=== PATIENT | female | born 1975 | race Caucasian/White ===

== ENCOUNTER 2017-11-21 20:38 | Emergency (ER) | payer OTHER ==
[2017-11-21] MEDS ORDERED: ALBUTEROL 2.5 MG/3 ML NEB SOL ONE (21:52)
[2017-11-21] MEDS ORDERED: AZITHROMYCIN 250 MG TAB ONE (21:52)
[2017-11-21] MEDS ORDERED: MAGNE/ALUM HYDROXD 30 ML UCUP ONE (21:52)
[2017-11-21] MEDS ORDERED: LIDOCAINE VISCOUS 2% SOLN 15 ML UDC ONE (21:52)
--- NOTE | 2017-11-21 23:01 | EDPHYS ---
Physician Documentation [facility] Name: Barb Cortez Age: 42 yrs Sex: Female : 1975 Arrival Date: 11/21/2017 Time: 20:41 Bed 16 Private MD: ED Physician Araseli Hutchins HPI: 11/21 22:24 This 42 yrs old Female presents to ER via Wheelchair with complaints of snw Congestion, Sore Throat, Itching Eyes. 22:24 Onset: The symptoms/episode began/occurred suddenly, 3 day(s) ago, and became snw persistent. Associated signs and symptoms: Pertinent positives: shortness of breath, sore throat. The patient has not experienced similar symptoms in the past. 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 - Social history:: Smoking status: Patient uses tobacco products, smokes one-half pack cigarettes per day. ROS: 22:50 Constitutional: Negative for fever, chills, and weight loss, Eyes: Negative for injury, snw pain, redness, and discharge, Neck: Negative for injury, pain, and swelling, Cardiovascular: Negative for chest pain, palpitations, and edema, Respiratory: Negative for cough, wheezing, and pleuritic chest pain, + shortness of breath Abdomen/GI: Negative for abdominal pain, nausea, vomiting, diarrhea, and constipation, Back: Negative for injury and pain, : Negative for injury, bleeding, discharge, and swelling, MS/Extremity: Negative for injury and deformity, Skin: Negative for injury, rash, and discoloration, Neuro: Negative for headache, weakness, numbness, tingling, and seizure, Psych: Negative for depression, anxiety, suicide ideation, homicidal ideation, and hallucinations. 22:50 ENT: Positive for sore throat. Exam: 22:23 Constitutional: This is a well developed, well nourished patient who is awake, alert, snw and in no acute distress. Head/Face: Normocephalic, atraumatic. Eyes: Pupils equal round and reactive to light, extra-ocular motions intact. Lids and lashes normal. Conjunctiva and sclera are non-icteric and not injected. Cornea within normal limits. Periorbital areas with no swelling, redness, or edema. Neck: Trachea midline, no thyromegaly or masses palpated, and no cervical lymphadenopathy. Supple, full range of motion without nuchal rigidity, or vertebral point tenderness. No Meningismus. Chest/axilla: Normal chest wall appearance and motion. Nontender with no deformity. No lesions are appreciated. Cardiovascular: Regular rate and rhythm with a normal S1 and S2. No gallops, murmurs, or rubs. Normal PMI, no JVD. No pulse deficits. Respiratory: Lungs have equal breath sounds bilaterally, clear to auscultation and percussion. No rales, rhonchi or wheezes noted. No increased work of breathing, no retractions or nasal flaring. Abdomen/GI: Soft, non-tender, with normal bowel sounds. No distension or tympany. No guarding or rebound. No evidence of tenderness throughout. Back: No spinal tenderness. No costovertebral tenderness. Full range of motion. Skin: Warm, dry with normal turgor. Normal color with no rashes, no lesions, and no evidence of cellulitis. MS/ Extremity: Pulses equal, no cyanosis. Neurovascular intact. Full, normal range of motion. Neuro: Awake and alert, GCS 15, oriented to person, place, time, and situation. Cranial nerves II-XII grossly intact. Motor strength 5/5 in all extremities. Sensory grossly intact. Cerebellar exam normal. Normal gait. 22:23 ENT: TM's: are normal, Nose: is normal, Mouth: is normal, Posterior pharynx: is normal, Voice: is hoarse. Vital Signs: 20:46 BP 133 / 73; Pulse 100; Resp 19; Temp 98.0(TE); Pulse Ox 98% on R/A; Weight 79.38 kg; la1 Height 4 ft. 9 in. (144.78 cm); 22:00 BP 115 / 74; Pulse 95; Resp 18; Pulse Ox 100% ; ao 23:00 BP 117 / 67; Pulse 80; Resp 14; Pulse Ox 98% ; bp 20:46 Body Mass Index 37.87 (79.38 kg, 144.78 cm) la1 MDM: 20:47 Patient medically screened. snw 23:02 Data reviewed: vital signs, nurses notes. Data interpreted: Pulse oximetry: on room air snw is 100 %. Interpretation: normal. Counseling: I had a detailed discussion with the patient and/or guardian regarding: the historical points, exam findings, and any diagnostic results supporting the discharge/admit diagnosis, radiology results, the need for outpatient follow up, to return to the emergency department if symptoms worsen or persist or if there are any questions or concerns that arise at home. Special discussion: Based on the history and exam findings, there is no indication for further emergent testing or inpatient evaluation. I discussed with the patient/guardian the need to see the primary care provider for further evaluation of the symptoms. Medical screen evaluation completed[facility]. 11/21 21:42 Order name: Chest Pa And Lat (2 Views) XRAY snw Administered Medications: 21:58 Drug: GI Cocktail without - (Maalox Suspension 30 ml, Lidocaine Liquid 2 % 15 ao ml) Route: PO; 23:05 Follow up: Response: Marked relief of symptoms bp 21:59 Drug: Albuterol 2.5 mg Route: Inhalation; ao 21:59 Follow up: Response: No adverse reaction ao 21:59 Drug: Zithromax 500 mg Route: PO; ao 23:05 Follow up: Response: No adverse reaction bp Disposition: 11/22 01:52 Co-signature as Attending Physician, Araseli Hutchins MD. ma2 Disposition: 11/21/17 23:00 Discharged to Home. Impression: Acute pharyngitis, Acute laryngitis. - Condition is Stable. - Discharge Instructions: Pharyngitis, Rehydration, Adult. - Prescriptions for Albuterol Sulfate 2.5 mg /3 mL (0.083 %) Inhalation Solution for Nebulization - inhale 1 unit by NEBULIZATION route every 4-6 hours As needed; 2 box. Zithromax 500 mg Oral Tablet - take 1 tablet by ORAL route once daily for 5 days; 5 tablet. - Medication Reconciliation Form, Thank You Letter, Antibiotic Education, Prescription Opioid Use form. - Follow up: Private Physician; When: 2 - 3 days; Reason: Recheck today's complaints, Continuance of care, Re-evaluation by your physician. Follow up: Emergency Department; When: As needed; Reason: Worsening of condition. Signatures: Dispatcher [employer] EDMS Bee Shah, BOND ANALYST-C BOND ANALYST-Csnw Amrit Guerrero RN RN laGeoff Woodard, RN RN Grover Ortiz RN RN bp Araseli Hutchins MD MD ma2 Corrections: (The following items were deleted from the chart) 11/21 23:03 23:00 11/21/2017 23:00 Discharged to Home. Impression: Acute pharyngitis. Condition is snw Stable. Forms are Medication Reconciliation Form, Thank You Letter, Antibiotic Education, Prescription Opioid Use. Follow up: Private Physician; When: 2 - 3 days; Reason: Recheck today's complaints, Continuance of care, Re-evaluation by your physician. Follow up: Emergency Department; When: As needed; Reason: Worsening of condition. snw 23:12 23:03 11/21/2017 23:00 Discharged to Home. Impression: Acute pharyngitis; Acute bp laryngitis. Condition is Stable. Discharge Instructions: Pharyngitis, Rehydration, Adult. Prescriptions for Albuterol Sulfate 2.5 mg /3 mL (0.083 %) Inhalation Solution for Nebulization - inhale 1 unit by NEBULIZATION route every 4-6 hours As needed; 2 box, Zithromax 500 mg Oral Tablet - take 1 tablet by ORAL route once daily for 5 days; 5 tablet. and Forms are Medication Reconciliation Form, Thank You Letter, Antibiotic Education, Prescription Opioid Use. Follow up: Private Physician; When: 2 - 3 days; Reason: Recheck today's complaints, Continuance of care, Re-evaluation by your physician. Follow up: Emergency Department; When: As needed; Reason: Worsening of condition. snw
--- NOTE | 2017-11-21 23:01 | ER ---
Nurse's Notes [facility] Name: Barb Cortez Age: 42 yrs Sex: Female : 1975 Arrival Date: 11/21/2017 Time: 20:41 Bed 16 Private MD: Diagnosis: Acute pharyngitis;Acute laryngitis Presentation: 11/21 20:45 Presenting complaint: Patient states: Cough, congestion, chest tightness, pain with la1 swallowing for the last 3 days. Transition of care: patient was not received from another setting of care. Onset of symptoms was November 21, 2017. Initial Sepsis Screen: Does the patient meet any 2 criteria? No. Patient's initial sepsis screen is negative. Does the patient have a suspected source of infection? No. Patient's initial sepsis screen is negative. Care prior to arrival: None. 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 - Social history:: Smoking status: Patient uses tobacco products, smokes one-half pack cigarettes per day. Screenin:08 Abuse screen: Denies threats or abuse. Denies injuries from another. Nutritional ao screening: No deficits noted. Tuberculosis screening: No symptoms or risk factors identified. Fall Risk None identified. Assessment: 21:06 General: Appears in no apparent distress. comfortable, Behavior is cooperative. Pain: ao Complains of pain in sore throat. Neuro: Level of Consciousness is awake, alert, obeys commands, Oriented to person, place, time, situation, Weakness. Cardiovascular: Patient's skin is warm and dry. Respiratory: Airway is patent Respiratory effort is even, unlabored, Respiratory pattern is regular, symmetrical, Breath sounds are clear bilaterally. GI: Abdomen is obese. : No signs and/or symptoms were reported regarding the genitourinary system. EENT: No signs and/or symptoms were reported regarding the EENT system. Derm: No signs and/or symptoms reported regarding the dermatologic system. Musculoskeletal: Range of motion: limited in all extremities. 21:59 Reassessment: Patient appears in no apparent distress at this time. Patient and/or ao family updated on plan of care and expected duration. Pain level reassessed. Patient is alert, oriented x 3, equal unlabored respirations, skin warm/dry/pink. 22:00 Reassessment: RECD REPORT FROM MALGORZATA BESS. 42YO WF P/W SORE THROAT AND CONGESTION, bp AFEBRILE ON ARRIVAL. RAD RESULTS PENDING. 23:11 Reassessment: PT D/C HOME VIA PERSONAL W/C WITH FAMILY, DX WITH ACUTE PHARYNGITIS. bp Vital Signs: 20:46 BP 133 / 73; Pulse 100; Resp 19; Temp 98.0(TE); Pulse Ox 98% on R/A; Weight 79.38 kg; la1 Height 4 ft. 9 in. (144.78 cm); 22:00 BP 115 / 74; Pulse 95; Resp 18; Pulse Ox 100% ; ao 23:00 BP 117 / 67; Pulse 80; Resp 14; Pulse Ox 98% ; bp 20:46 Body Mass Index 37.87 (79.38 kg, 144.78 cm) la1 ED Course: 20:41 Patient arrived in ED. ds1 20:41 Bee Shah FNP-C is PHCP. snw 20:41 Araseli Hutchins MD is Attending Physician. snw 20:46 Triage completed. la1 20:46 Arm band placed on left wrist. la1 21:06 Malgorzata Lucas, RN is Primary Nurse. ao 21:09 Patient has correct armband on for positive identification. Pulse ox on. NIBP on. ao 22:47 Chest Pa And Lat (2 Views) XRAY In Process Unspecified. EDMS 23:11 No provider procedures requiring assistance completed. Patient did not have IV access bp during this emergency room visit. Administered Medications: 21:58 Drug: GI Cocktail without - (Maalox Suspension 30 ml, Lidocaine Liquid 2 % 15 ao ml) Route: PO; 23:05 Follow up: Response: Marked relief of symptoms bp 21:59 Drug: Albuterol 2.5 mg Route: Inhalation; ao 21:59 Follow up: Response: No adverse reaction ao 21:59 Drug: Zithromax 500 mg Route: PO; ao 23:05 Follow up: Response: No adverse reaction bp Outcome: 23:00 Discharge ordered by . nazario 23:12 Discharged to home via wheelchair, with family. bp 23:12 Condition: stable 23:12 Discharge instructions given to patient, Instructed on discharge instructions, follow up and referral plans. medication usage, Demonstrated understanding of instructions, follow-up care, medications, Prescriptions given X 2. 23:12 Patient left the ED. bp Signatures: Dispatcher [employer] EDMS Bee Shah, BHAVIN-C PROJECT MANAGEMENT ENGINEER-Jen Guerrero ds1 Amrit Guerrero RN RN la1 Malgorzata Lucas, RN Grover Bravo RN RN bp
[2017-11-21 23:25] VITALS: TEMP 98
[2017-11-21 23:27] VITALS: BP 117/67; O2SAT 98
--- NOTE | 2017-11-22 11:32 | RAD REPORT ---
EXAM DESCRIPTION: RAD - Chest Pa And Lat (2 Views) - 11/21/2017 10:47 pm CLINICAL HISTORY: Cough and congestion. COMPARISON: None. FINDINGS: The lungs are clear. The heart is normal in size. No displaced fractures. IMPRESSION: No acute or concerning finding suspected.
== END 2017-11-21 23:12 | disposition home or self-care (01) ==
LOC: ER 20:38
DX: J04.0 Acute laryngitis (principal); I10 Essential (primary) hypertension; E11.9 Type 2 diabetes mellitus without complications; F32.9 Major depressive disorder, single episode, unspecified; F17.210 Nicotine dependence, cigarettes, uncomplicated; Z79.4 Long term (current) use of insulin; Z88.0 Allergy status to penicillin; Z88.1 Allergy status to other antibiotic agents; Z88.6 Allergy status to analgesic agent; Z91.041 Radiographic dye allergy status
CPT/HCPCS: 71046; 99284

== ENCOUNTER 2018-01-04 21:34 | Emergency (ER) | payer OTHER ==
[2018-01-04] MEDS ORDERED: NA CHLORIDE 0.9% 1,000 ML ONE (22:46)
[2018-01-04 22:57] LABS: Absolute Lymphocytes (CBC) 4.1 K/uL (0.7-4.9); Absolute Monocytes 0.9 K/uL (0.1-1.3); Absolute Neutrophil 9.9 K/uL (1.8-8.0); Basophils % 0.6 % (0-1.3); Hematocrit 41.7 % (36.0-45.0); Lymphocytes % 25.8 % (15.3-44.8); MCH 28.3 pg (27.0-35.0); MCV 83.3 fL (80-100); MPV 7.1 fL (7.6-11.3); Monocytes % 5.7 % (3.3-12.3); RBC Red Blood Cell Count 5.01 M/uL (3.86-4.86)
[2018-01-04 23:12] LABS: Potassium 4.5 mmol/L (3.5-5.1)
--- NOTE | 2018-01-04 23:40 | EDPHYS ---
Physician Documentation [facility] Name: Barb Cortez Age: 42 yrs Sex: Female : 1975 Arrival Date: 01/04/2018 Time: 21:37 Bed 13 Private MD: ED Physician Gil Boswell HPI: 01/04 23:08 This 42 yrs old Female presents to ER via Wheelchair with complaints of rn Weakness, Dizziness. 23:08 Reports chills and generalized weakness for 2 days, no fever, no cough/chest pain/abd rn pain/vomiting/diarrhea. Onset: The symptoms/episode began/occurred yesterday. Severity of symptoms: At their worst the symptoms were mild in the emergency department the symptoms are unchanged. The patient has experienced a previous episode. The patient has not recently seen a physician. Similar symptoms in past when started amitriptyline, had been off of it for 1.5 years, just restarted. . 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 ak1 Historical: - Allergies: 22:00 Aspirin; ak1 22:00 Cipro; ak1 22:00 IVP DYE; ak1 22:00 PENICILLINS; ak1 22:00 Benadryl; ak1 - Home Meds: 22:00 Lantus Sub-Q [Active]; Novolog Sub-Q [Active]; Lipitor 40 mg Oral tab [Active]; Lyrica ak1 Oral [Active]; metformin 1,000 mg Oral tab [Active]; Flexeril 10 mg Oral tab 3 times per day [Active]; symbicort [Active]; amitriptyline 100 mg Oral tab [Active]; Prozac 20 mg Oral cap 1 cap once daily [Active]; prazosin 1 mg Oral cap 1 cap nightly [Active]; - PMHx: 22:00 Depression; Diabetes - IDDM; Hypertension; Bipolar disorder; ak1 - PSHx: 22:00 Right BKA; right kidney removal; ; ak1 - Immunization history:: Adult Immunizations unknown. - Social history:: Smoking status: Patient uses tobacco products, smokes one-half pack cigarettes per day. - Ebola Screening: : No symptoms or risks identified at this time. - Family history:: not pertinent. - Hospitalizations: : No recent hospitalization is reported. ROS: 23:08 Constitutional: Negative for fever, and weight loss, Eyes: Negative for injury, pain, rn redness, and discharge, Neck: Negative for injury, pain, and swelling, Cardiovascular: Negative for chest pain, palpitations, and edema, Respiratory: Negative for shortness of breath, cough, wheezing, and pleuritic chest pain, Abdomen/GI: Negative for abdominal pain, nausea, vomiting, diarrhea, and constipation, MS/Extremity: Negative for injury and deformity, Skin: Negative for injury, rash, and discoloration, Neuro: Negative for headache, numbness, tingling, and seizure. Exam: 23:08 Constitutional: This is a well developed, well nourished patient who is awake, alert, rn and in no acute distress. Head/Face: Normocephalic, atraumatic. Eyes: Pupils equal round and reactive to light, extra-ocular motions intact. Lids and lashes normal. Conjunctiva and sclera are non-icteric and not injected. Cornea within normal limits. Periorbital areas with no swelling, redness, or edema. Neck: Trachea midline, no thyromegaly or masses palpated, and no cervical lymphadenopathy. Supple, full range of motion without nuchal rigidity, or vertebral point tenderness. No Meningismus. Cardiovascular: tachycardic, regular, no murmur Respiratory: Lungs have equal breath sounds bilaterally, clear to auscultation and percussion. No rales, rhonchi or wheezes noted. No increased work of breathing, no retractions or nasal flaring. Abdomen/GI: Soft, non-tender, with normal bowel sounds. No distension or tympany. No guarding or rebound. No evidence of tenderness throughout. Skin: Warm, dry with normal turgor. Normal color with no rashes, no lesions, and no evidence of cellulitis. MS/ Extremity: RLE BKA, no evidence of trauma or rash Neuro: Awake and alert, GCS 15, oriented to person, place, time, and situation. Cranial nerves II-XII grossly intact. Motor strength 5/5 in all extremities. Sensory grossly intact. Vital Signs: 21:56 BP 108 / 63; Pulse 108; Resp 20; Temp 98.1; Pulse Ox 99% on R/A; Weight 84.82 kg (R); ak1 Height 4 ft. 9 in. (144.78 cm) (R); Pain 10/10; 23:33 BP 118 / 67; Pulse 100; Resp 16; Pulse Ox 100% ; Pain 0/10; ao 01/05 00:20 BP 118 / 72; Pulse 97; Resp 16; Pulse Ox 100% ; ao 01/04 21:56 Body Mass Index 40.47 (84.82 kg, 144.78 cm) ak1 NIH Stroke Scale Scores: 01/04 22:11 NIHSS Score: 0 ao MDM: 22:18 Patient medically screened. rn 23:37 Differential Diagnosis flu, dehydration, medication side effect. Data reviewed: vital rn signs, nurses notes, lab test result(s), and as a result, I will discharge patient. Counseling: I had a detailed discussion with the patient and/or guardian regarding: the historical points, exam findings, and any diagnostic results supporting the discharge/admit diagnosis, lab results, the need for outpatient follow up, to return to the emergency department if symptoms worsen or persist or if there are any questions or concerns that arise at home. Response to treatment: the patient's symptoms have markedly improved after treatment, and as a result, I will discharge patient. Special discussion: I discussed with the patient/guardian in detail that at this point there is no indication for admission to the hospital. It is understood, however, that if the symptoms persist or worsen the patient needs to return immediately for re-evaluation. ED course: Pt with neg flu, + dehydration, neg UA, nonspecific symptoms of aches and chills, afebrile, has had this before with starting medication she just started again, possible side effect, will need reeval by pcp.. 01/04 22:26 Order name: CBC with Diff; Complete Time: 23:02 rn 01/04 22: Order name: Basic Metabolic Panel; Complete Time: 23:36 rn 01/04 22:26 Order name: Urine Microscopic Only rn 01/04 22:26 Order name: Flu; Complete Time: 23:36 rn 01/04 23:22 Order name: Urine Dipstick--Ancillary (enter results) eb 01/04 23:22 Order name: Urine --Ancillary (enter results) 01/04 22:26 Order name: IV Start; Complete Time: 22:46 rn 01/04 22: Order name: Urine Test (obtain specimen); Complete Time: 23:23 rn 01/04 22:26 Order name: Urine Dipstick-Ancillary (obtain specimen); Complete Time: 23:23 rn Administered Medications: 22:49 Drug: NS 0.9% 1000 ml Route: IV; Rate: 1000 ml; Site: right antecubital; ao Point of Care Testin:22 None ordered ao Ranges: Critical Glucose Levels:Adult <50 mg/dl or >400 mg/dl <40 mg/dl or >180 mg/dl Disposition: 01/04/18 23:39 Discharged to Home. Impression: Dehydration, Chills (without fever). - Condition is Stable. - Discharge Instructions: Dehydration, Adult. - Medication Reconciliation Form, Thank You Letter, Antibiotic Education, Prescription Opioid Use form. - Follow up: Private Physician; When: As needed; Reason: Recheck today's complaints, Re-evaluation by your physician. - Problem is new. - Symptoms have improved. NIH Stroke Scale - NIH Stroke Score Date: 01/04/2018 Time: 22:11 Total Score = 0 1a. Level of Consciousness (LOC) - 0(Alert) 1b. Level of Consciousness (LOC) (Year \T\ Age) - 0(Both) 1c. LOC Commands (Open \T\ Closes Eyes/Coat Fitter) - 0(Both) 2. Best Gaze (Lateral Gaze Paresis) - 0(Normal) 3. Visual Field Loss - 0(No visual loss) 4. Facial Palsy - 0(Normal) 5a. Left Arm: Motor (10-second hold) - 0(No drift) 5b. Right Arm: Motor (10-second hold) - 0(No drift) 6a. Left Leg: Motor (5-second hold - always test supine) - 0(No drift) 6b. Right Leg: Motor (5-second hold - always test supine) - 9(Amputation, joint fusion) - Notes: Right bellow knee amputation 7. Limb Ataxia (finger/nose \T\ heel/lee - test with eyes open) - 0(Absent) 8. Sensory Loss (pinprick arms/legs/face) - 0(Normal) 9. Best Language: Aphasia (description/naming/reading) - 0(No aphasia) 10. Dysarthria (speech clarity - read or repeat words) - 0(Normal) 11. Extinction and Inattention (visual/tactile/auditory/spatial/personal) - 0(No abnormality) Initials: ao Signatures: Dispatcher [employer] Gil Bradley MD MD rn Krenek, Amber, RN RN ak1 Geoff Lucas RN RN ao Corrections: (The following items were deleted from the chart) 01/05 00:22 01/04 23:39 01/04/2018 23:39 Discharged to Home. Impression: Dehydration; ao Chills (without fever). Condition is Stable. Forms are Medication Reconciliation Form, Thank You Letter, Antibiotic Education, Prescription Opioid Use. Follow up: Private Physician; When: As needed; Reason: Recheck today's complaints, Re-evaluation by your physician. Problem is new. Symptoms have improved. rn
--- NOTE | 2018-01-04 23:40 | ER ---
Nurse's Notes [facility] Name: Barb Cortez Age: 42 yrs Sex: Female : 1975 Arrival Date: 01/04/2018 Time: 21:37 Bed 13 Private MD: Diagnosis: Dehydration;Chills (without fever) Presentation: 01/04 21:57 Presenting complaint: Patient states: body aches since last night. pt c/o fatigue. ak1 Transition of care: patient was not received from another setting of care. Onset of symptoms was January 03, 2018. Risk Assessment: Do you want to hurt yourself or someone else? Patient reports no desire to harm self or others. Initial Sepsis Screen: Does the patient meet any 2 criteria? No. Patient's initial sepsis screen is negative. Does the patient have a suspected source of infection? No. Patient's initial sepsis screen is negative. Care prior to arrival: None. 21:57 Method Of Arrival: Wheelchair ak1 21:57 Acuity: HARI 3 ak1 22:20 No acute neurological deficit is noted. Pre-hospital glucose is not applicable to this ao patient. Triage Assessment: 22:21 The onset of the patients symptoms was January 04, 2018 at 06:00. General: Appears in no ao apparent distress. comfortable. General: Behavior is calm, inappropriate for age. Neuro: Reports weakness in General since This morning. 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 N/A - IUD ak1 Stroke Activation: Physician: Stroke Attending; Name: ; Notified At: ; Arrived At: Physician: Chief Stroke Resident; Name: ; Notified At: ; Arrived At: Physician: Stroke Resident; Name: ; Notified At: ; Arrived At: Physician: ED Attending; Name: ; Notified At: ; Arrived At: Physician: ED Resident; Name: ; Notified At: ; Arrived At: 22:20 Non stroke candidate ao Historical: - Allergies: 22:00 Aspirin; ak1 22:00 Cipro; ak1 22:00 IVP DYE; ak1 22:00 PENICILLINS; ak1 22:00 Benadryl; ak1 - Home Meds: 22:00 Lantus Sub-Q [Active]; Novolog Sub-Q [Active]; Lipitor 40 mg Oral tab [Active]; Lyrica ak1 Oral [Active]; metformin 1,000 mg Oral tab [Active]; Flexeril 10 mg Oral tab 3 times per day [Active]; symbicort [Active]; amitriptyline 100 mg Oral tab [Active]; Prozac 20 mg Oral cap 1 cap once daily [Active]; prazosin 1 mg Oral cap 1 cap nightly [Active]; - PMHx: 22:00 Depression; Diabetes - IDDM; Hypertension; Bipolar disorder; ak1 - PSHx: 22:00 Right BKA; right kidney removal; ; ak1 - Immunization history:: Adult Immunizations unknown. - Social history:: Smoking status: Patient uses tobacco products, smokes one-half pack cigarettes per day. - Ebola Screening: : No symptoms or risks identified at this time. - Family history:: not pertinent. - Hospitalizations: : No recent hospitalization is reported. Screenin:20 Abuse screen: Denies threats or abuse. Denies injuries from another. Nutritional ao screening: No deficits noted. Tuberculosis screening: No symptoms or risk factors identified. Fall Risk Ambulatory Aid- Furniture (30 pts.). Assessment: 22:11 The patient has not been NPO before screening. The patient is alert, and able to follow ao commands. The patient does not exhibit slurred or garbled speech. The patient is not exhibiting difficulty speaking. The patient does not exhibit difficulty understanding words. The patient is able to swallow own secretions with no drooling or need for suction. Patient tolerated one teaspoon of water. No drooling, immediate coughing, gurgling, or clearing of the throat was noted. The patient tolerated 90mL of water. No drooling, immediate coughing, gurgling, or clearing of the throat was noted. The patient passed the bedside swallow screening. Oral medications may be given as ordered. Contact Physician for further diet orders. T-PA (Activase) Screening: Contraindications: Other: Patient is non stroke candidate. 22:16 Provider notified of bedside swallow screening results: Geoff Lucas RN. General: Appears ao in no apparent distress. General: Appears comfortable, Behavior is calm, cooperative, appropriate for age. Pain: Complains of pain in Body aches Pain does not radiate. Neuro: Level of Consciousness is awake, alert, obeys commands, Oriented to person, place, time, situation, Appropriate for age Moves all extremities. Full function Unable to test right leg. Amputated right leg. Speech is normal, Facial symmetry appears normal, Pupils are PERRLA. Cardiovascular: Heart tones S1 S2 Capillary refill < 3 seconds Patient's skin is warm and dry. Respiratory: Airway is patent Respiratory effort is even, unlabored, Respiratory pattern is regular, symmetrical, Breath sounds are clear bilaterally. GI: Abdomen is obese, Bowel sounds hypoactive in right upper quadrant, left upper quadrant, right lower quadrant and left lower quadrant. : No signs and/or symptoms were reported regarding the genitourinary system. EENT: No signs and/or symptoms were reported regarding the EENT system. Derm: Skin is intact, has skin tears on noted in the hands and arms. Musculoskeletal: Amputation of Below knee right leg. 23:33 Reassessment: Patient appears in no apparent distress at this time. Patient and/or ao family updated on plan of care and expected duration. Pain level reassessed. Patient is alert, oriented x 3, equal unlabored respirations, skin warm/dry/pink. Patient has no questions at this time. 01/05 00:20 Reassessment: DC instructions given to patient. Patient agree with the POC and to ao follow up with PCP. Patient has no questions. Vital Signs: 01/04 21:56 BP 108 / 63; Pulse 108; Resp 20; Temp 98.1; Pulse Ox 99% on R/A; Weight 84.82 kg (R); ak1 Height 4 ft. 9 in. (144.78 cm) (R); Pain 10/10; 23:33 BP 118 / 67; Pulse 100; Resp 16; Pulse Ox 100% ; Pain 0/10; ao 01/05 00:20 BP 118 / 72; Pulse 97; Resp 16; Pulse Ox 100% ; ao 01/04 21:56 Body Mass Index 40.47 (84.82 kg, 144.78 cm) ak1 NIH Stroke Scale Scores: 01/04 22:11 NIHSS Score: 0 ao ED Course: 21:37 Patient arrived in ED. al2 21:56 Arm band placed on Patient placed in an exam room, in a wheelchair, Patient notified of ak1 wait time. 21:57 Triage completed. ak1 22:08 Geoff Lucas RN is Primary Nurse. ao 22:18 Gil Boswell MD is Attending Physician. rn 22:21 Patient has correct armband on for positive identification. Pulse ox on. NIBP on. ao 22:49 Inserted saline lock: 22 gauge in right antecubital area, using aseptic technique. ao ,using aseptic technique. By MARIA ALEJANDRA Morales Blood collected. 01/05 00:19 No provider procedures requiring assistance completed. IV discontinued, intact, ao bleeding controlled, No redness/swelling at site. Pressure dressing applied. Administered Medications: 01/04 22:49 Drug: NS 0.9% 1000 ml Route: IV; Rate: 1000 ml; Site: right antecubital; ao Point of Care Testin:22 None ordered ao Ranges: Outcome: 23:39 Discharge ordered by . rn 01/05 00:20 Discharged to home ambulatory. ao Condition: stable Discharge instructions given to patient, Instructed on discharge instructions, follow up and referral plans. Demonstrated understanding of instructions, follow-up care. 00:22 Patient left the ED. ao NIH Stroke Scale - NIH Stroke Score Date: 01/04/2018 Time: 22:11 Total Score = 0 1a. Level of Consciousness (LOC) - 0(Alert) 1b. Level of Consciousness (LOC) (Year \T\ Age) - 0(Both) 1c. LOC Commands (Open \T\ Closes Eyes/Welder Experimental) - 0(Both) 2. Best Gaze (Lateral Gaze Paresis) - 0(Normal) 3. Visual Field Loss - 0(No visual loss) 4. Facial Palsy - 0(Normal) 5a. Left Arm: Motor (10-second hold) - 0(No drift) 5b. Right Arm: Motor (10-second hold) - 0(No drift) 6a. Left Leg: Motor (5-second hold - always test supine) - 0(No drift) 6b. Right Leg: Motor (5-second hold - always test supine) - 9(Amputation, joint fusion) - Notes: Right bellow knee amputation 7. Limb Ataxia (finger/nose \T\ heel/lee - test with eyes open) - 0(Absent) 8. Sensory Loss (pinprick arms/legs/face) - 0(Normal) 9. Best Language: Aphasia (description/naming/reading) - 0(No aphasia) 10. Dysarthria (speech clarity - read or repeat words) - 0(Normal) 11. Extinction and Inattention (visual/tactile/auditory/spatial/personal) - 0(No abnormality) Initials: ao Signatures: Gil Boswell MD MD rn Krenek, Amber RN RN Geoff Galeana, RN Kirsty Ware
[2018-01-04 23:50] LABS: Urine Blood NEGATIVE (NEG); Urine Glucose NEGATIVE (NEG); Urine Protein 1+ (NEG); Urine pH 5.5 (5.0-7.0)
[2018-01-05 00:27] VITALS: TEMP 98.1
[2018-01-05 00:28] VITALS: O2SAT 100
[2018-01-05 00:29] VITALS: BP 118/72
[2018-01-05 00:36] LABS: Urine Bacteria 20-50 /HPF (<20); Urine Culture Reflex Order REFLEXED; Urine RBC <5 /HPF (NONE SEEN)
== END 2018-01-05 00:22 | disposition home or self-care (01) ==
LOC: ER 21:34
DX: E86.0 Dehydration (principal); R50.9 Fever, unspecified; E11.9 Type 2 diabetes mellitus without complications; I10 Essential (primary) hypertension; F17.210 Nicotine dependence, cigarettes, uncomplicated; Z88.0 Allergy status to penicillin; Z88.6 Allergy status to analgesic agent; Z91.041 Radiographic dye allergy status; Z79.4 Long term (current) use of insulin
CPT/HCPCS: 36415; 80048; 81003; 81015; 81025; 85025; 87086; 87088; 87804; 99284; J7030

== ENCOUNTER 2018-01-14 23:18 | Emergency (ER) | payer OTHER ==
[2018-01-15] MEDS ORDERED: HYDROCODONE/APAP 10/325 TAB ONE (00:10)
--- NOTE | 2018-01-15 01:07 | ER ---
Nurse's Notes [facility] Name: Barb Cortez Age: 42 yrs Sex: Female : 1975 Arrival Date: 01/14/2018 Time: 23:19 Bed 6 Private MD: Diagnosis: Sprain of ankle-left Presentation: 01/14 23:28 Presenting complaint: Patient states: Pt was transferring to bedside commode and states tl2 that her left leg felt tingly and caused her to fall in between bed and chair. Pt reports pain to left ankle, back and neck. Denies LOC. Pt has full ROM of left leg. Denies dizziness. Transition of care: patient was not received from another setting of care. Onset of symptoms was January 14, 2018 at 23:00. Risk Assessment: Do you want to hurt yourself or someone else? Patient reports no desire to harm self or others. Initial Sepsis Screen: Does the patient meet any 2 criteria? No. Patient's initial sepsis screen is negative. Does the patient have a suspected source of infection? No. Patient's initial sepsis screen is negative. Care prior to arrival: None. 23:28 Method Of Arrival: Wheelchair tl2 23:28 Acuity: HARI 3 tl2 Triage Assessment: 23:31 General: Appears in no apparent distress. uncomfortable, Behavior is cooperative, tl2 appropriate for age, anxious. Pain: Complains of pain in left lateral ankle, neck, back. Neuro: Level of Consciousness is awake, alert, obeys commands, Oriented to person, place, time, situation, Heel Lining Paster are equal bilaterally Speech is normal, Facial symmetry appears normal, Tingling in left leg. 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 tl2 Historical: - Allergies: 23:31 Aspirin; tl2 23:31 Benadryl; tl2 23:31 Cipro; tl2 23:31 IVP DYE; tl2 23:31 PENICILLINS; tl2 - Home Meds: 23:31 amitriptyline 100 mg Oral tab [Active]; Flexeril 10 mg Oral tab 3 times per day tl2 [Active]; Lantus Sub-Q [Active]; Lipitor 40 mg Oral tab [Active]; Lyrica Oral [Active]; metformin 1,000 mg Oral tab [Active]; Novolog Sub-Q [Active]; prazosin 1 mg Oral cap 1 cap nightly [Active]; Prozac 20 mg Oral cap 1 cap once daily [Active]; symbicort [Active]; - PMHx: 23:31 Bipolar disorder; Depression; Diabetes - IDDM; Hypertension; Hyperlipidemia; tl2 - PSHx: 23:31 ; right kidney removed; Right BKA; tl2 - Immunization history:: Adult Immunizations up to date, Last tetanus immunization: up to date. - Social history:: Smoking status: Patient uses tobacco products, smokes one-half pack cigarettes per day. - Ebola Screening: : No symptoms or risks identified at this time. Screenin:34 Abuse screen: Denies threats or abuse. Nutritional screening: No deficits noted. tl2 Tuberculosis screening: No symptoms or risk factors identified. Fall Risk Fall in past 12 months (25 points). Gait- Impaired (20 pts.). Assessment: 23:34 General: Appears in no apparent distress. comfortable, Behavior is calm, cooperative. rv Pain: Complains of pain in knee, back, arm. Neuro: Level of Consciousness is awake, alert, obeys commands, Oriented to person, place, time, situation. Cardiovascular: Capillary refill < 3 seconds. Respiratory: Airway is patent. GI: No signs and/or symptoms were reported involving the gastrointestinal system. : No signs and/or symptoms were reported regarding the genitourinary system. EENT: No signs and/or symptoms were reported regarding the EENT system. Derm: Skin is intact. Musculoskeletal: No signs and/or symptoms reported regarding the musculoskeletal system. 01/15 00:56 Reassessment: Patient appears in no apparent distress at this time. Patient is alert, rv oriented x 3, equal unlabored respirations, skin warm/dry/pink. awaiting xray results. Vital Signs: 01/14 23:31 BP 125 / 70; Pulse 102; Resp 20; Temp 98.1(O); Pulse Ox 99% on R/A; Weight 83.91 kg; tl2 Height 4 ft. 9 in. (144.78 cm); Pain 10/10; 01/15 00:39 BP 124 / 70; Pulse 99; Resp 16; Pulse Ox 98% on R/A; rv 01/14 23:31 Body Mass Index 40.03 (83.91 kg, 144.78 cm) tl2 ED Course: 01/14 23:19 Patient arrived in ED. ds1 23:30 Triage completed. tl2 23:31 Arm band placed on right wrist. tl2 23:34 Georges Mendoza NP is PHCP. pm1 23:34 Lamberto Knox MD is Attending Physician. pm1 23:34 Patient has correct armband on for positive identification. Bed in low position. Call tl2 light in reach. Side rails up X 1. 07 00:13 Grover Tang, RN is Primary Nurse. bp 00:28 X-ray completed. Portable x-ray completed in exam room. Patient tolerated procedure kw well. 00:29 Ankle Left 3 View XRAY In Process Unspecified. EDMS 01:35 No provider procedures requiring assistance completed. Patient did not have IV access rv during this emergency room visit. Administered Medications: 00:08 Drug: HYDROcodone-acetaminophen 10 mg-325 mg 1 tabs Route: PO; rv Outcome: 01:06 Discharge ordered by MD. pm1 01:35 Discharged to home via wheelchair. rv 01:35 Condition: stable 01:35 Discharge instructions given to patient, family, Instructed on discharge instructions, follow up and referral plans. 01:36 Patient left the ED. rv Signatures: Dispatcher [employer] EDNJ Jen Jacome ds1 Brigitte Gong Georges Mendoza NP SLATE ROOFER HELPER pm1 Latonya Isbell RN RN tl2 Grover Tang, RN RN bp Scotty Pena RN RN rv
--- NOTE | 2018-01-15 01:07 | EDPHYS ---
Physician Documentation [facility] Name: Barb Cortez Age: 42 yrs Sex: Female : 1975 Arrival Date: 01/14/2018 Time: 23:19 Bed 6 Private MD: ED Physician Lamberto Knox HPI: 01/15 01:00 This 42 yrs old Female presents to ER via Wheelchair with complaints of Fall pm1 Injury. 01:00 Details of fall: The patient fell from seated position, while transferring. Onset: The pm1 symptoms/episode began/occurred 5 hour(s) ago. Associated injuries: The patient sustained left ankle. Severity of symptoms: in the emergency department the symptoms are actually worse. Patient with right BKA. patient transferring from bed to bedside commode and fell on her right leg and back. patient rolled her left ankle which is hurting the most. Patient's back pain no different or increased from her chronic back pain. Patient with minimal pain to right knee. No head injury, headache, or neck pain. 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 LMP 2009 tl2 Historical: - Allergies: 23:31 Aspirin; tl2 23:31 Benadryl; tl2 23:31 Cipro; tl2 23:31 IVP DYE; tl2 23:31 PENICILLINS; tl2 - Home Meds: 23:31 amitriptyline 100 mg Oral tab [Active]; Flexeril 10 mg Oral tab 3 times per day tl2 [Active]; Lantus Sub-Q [Active]; Lipitor 40 mg Oral tab [Active]; Lyrica Oral [Active]; metformin 1,000 mg Oral tab [Active]; Novolog Sub-Q [Active]; prazosin 1 mg Oral cap 1 cap nightly [Active]; Prozac 20 mg Oral cap 1 cap once daily [Active]; symbicort [Active]; - PMHx: 23:31 Bipolar disorder; Depression; Diabetes - IDDM; Hypertension; Hyperlipidemia; tl2 - PSHx: 23:31 ; right kidney removed; Right BKA; tl2 - Immunization history:: Adult Immunizations up to date, Last tetanus immunization: up to date. - Social history:: Smoking status: Patient uses tobacco products, smokes one-half pack cigarettes per day. - Ebola Screening: : No symptoms or risks identified at this time. ROS: 01/15 01:00 Constitutional: Negative for fever, chills, and weight loss, Eyes: Negative for injury, pm1 pain, redness, and discharge, ENT: Negative for injury, pain, and discharge, Neck: Negative for injury, pain, and swelling, Cardiovascular: Negative for chest pain, palpitations, and edema, Respiratory: Negative for shortness of breath, cough, wheezing, and pleuritic chest pain, Abdomen/GI: Negative for abdominal pain, nausea, vomiting, diarrhea, and constipation, Back: Negative for injury and pain, : Negative for injury, bleeding, discharge, and swelling. Skin: Negative for injury, rash, and discoloration, Neuro: Negative for headache, weakness, numbness, tingling, and seizure. MS/extremity: Positive for pain, of the left lateral ankle, Negative for decreased range of motion, deformity. Exam: 01:00 Constitutional: This is a well developed, well nourished patient who is awake, alert, pm1 and in no acute distress. Head/Face: Normocephalic, atraumatic. Eyes: Pupils equal round and reactive to light, extra-ocular motions intact. Lids and lashes normal. Conjunctiva and sclera are non-icteric and not injected. Cornea within normal limits. Periorbital areas with no swelling, redness, or edema. ENT: Nares patent. No nasal discharge, no septal abnormalities noted. Tympanic membranes are normal and external auditory canals are clear. Oropharynx with no redness, swelling, or masses, exudates, or evidence of obstruction, uvula midline. Mucous membranes moist. Neck: Trachea midline, no thyromegaly or masses palpated, and no cervical lymphadenopathy. Supple, full range of motion without nuchal rigidity, or vertebral point tenderness. No Meningismus. Chest/axilla: Normal chest wall appearance and motion. Nontender with no deformity. No lesions are appreciated. Cardiovascular: Regular rate and rhythm with a normal S1 and S2. No gallops, murmurs, or rubs. No pulse deficits. Respiratory: Lungs have equal breath sounds bilaterally, clear to auscultation and percussion. No rales, rhonchi or wheezes noted. No increased work of breathing, no retractions or nasal flaring. Abdomen/GI: Soft, non-tender, with normal bowel sounds. No distension or tympany. No guarding or rebound. No evidence of tenderness throughout. Back: No spinal tenderness. No costovertebral tenderness. Full range of motion. Skin: Warm, dry with normal turgor. Normal color with no rashes, no lesions, and no evidence of cellulitis. 01:00 Musculoskeletal/extremity: Extremities: grossly normal except: noted in the left lateral ankle: tenderness, There is no evidence of decreased ROM, deformity, Right BKA. No swelling or tenderness present to right knee. 01:00 Neuro: Orientation: is normal, Motor: moves all fours. Vital Signs: 01/14 23:31 BP 125 / 70; Pulse 102; Resp 20; Temp 98.1(O); Pulse Ox 99% on R/A; Weight 83.91 kg; tl2 Height 4 ft. 9 in. (144.78 cm); Pain 10/10; 01/15 00:39 BP 124 / 70; Pulse 99; Resp 16; Pulse Ox 98% on R/A; rv 01/14 23:31 Body Mass Index 40.03 (83.91 kg, 144.78 cm) tl2 MDM: 01/14 23:57 Patient medically screened. pm1 01/15 01:05 Data reviewed: vital signs. Data interpreted: Pulse oximetry: on room air is 98 %. pm1 Interpretation: normal. Counseling: I had a detailed discussion with the patient and/or guardian regarding: the historical points, exam findings, and any diagnostic results supporting the discharge/admit diagnosis, radiology results, the need for outpatient follow up, to return to the emergency department if symptoms worsen or persist or if there are any questions or concerns that arise at home. 01/15 00:04 Order name: Ankle Left 3 View XRAY; Complete Time: 15:03 pm1 Administered Medications: 00:08 Drug: HYDROcodone-acetaminophen 10 mg-325 mg 1 tabs Route: PO; rv Disposition: 02:48 Co-signature as Attending Physician, Lamberto Knox MD. pkl Disposition: 01/15/18 01:06 Discharged to Home. Impression: Sprain of ankle - left. - Condition is Stable. - Discharge Instructions: Ankle Sprain. - Medication Reconciliation Form, Thank You Letter form. - Follow up: Emergency Department; When: As needed; Reason: Worsening of condition. Follow up: Private Physician; When: 2 - 3 days; Reason: Recheck today's complaints, Continuance of care, Re-evaluation by your physician. - Problem is new. - Symptoms have improved. Signatures: Dispatcher [employer] EDLamberto George MD MD pkl Marinas, Patrick, INDUSTRIAL GAS SERVICER SUPERVISOR INDUSTRIAL GAS SERVICER SUPERVISOR pm1 Latonya Isbell, RN RN tl2 Scotty Pena RN RN rv Corrections: (The following items were deleted from the chart) 01:36 01:06 01/15/2018 01:06 Discharged to Home. Impression: Sprain of ankle - left. rv Condition is Stable. Forms are Medication Reconciliation Form, Thank You Letter, Antibiotic Education, Prescription Opioid Use. Follow up: Emergency Department; When: As needed; Reason: Worsening of condition. Follow up: Private Physician; When: 2 - 3 days; Reason: Recheck today's complaints, Continuance of care, Re-evaluation by your physician. Problem is new. Symptoms have improved. pm1
[2018-01-15 01:40] VITALS: TEMP 98.1
[2018-01-15 01:41] VITALS: BP 124/70; O2SAT 98
--- NOTE | 2018-01-15 08:41 | RAD REPORT ---
EXAM DESCRIPTION: RAD - Ankle Left 3 View - 01/15/2018 12:29 am CLINICAL HISTORY: PAIN History of trauma, fall COMPARISON: No comparisons FINDINGS: Mild to moderate soft tissue swelling is seen about the ankle. Small calcaneal spur. No ac mian fracture or dislocation is seen.
== END 2018-01-15 01:36 | disposition home or self-care (01) ==
LOC: ER 23:18
DX: S93.402A Sprain of unspecified ligament of left ankle, initial encounter (principal); I10 Essential (primary) hypertension; E78.5 Hyperlipidemia, unspecified; E11.9 Type 2 diabetes mellitus without complications; F17.210 Nicotine dependence, cigarettes, uncomplicated; X50.1XXA Overexertion from prolonged static or awkward postures, initial encounter; Y93.89 Activity, other specified; Y92.9 Unspecified place or not applicable; Y99.9 Unspecified external cause status; Z79.4 Long term (current) use of insulin; Z88.6 Allergy status to analgesic agent; Z88.1 Allergy status to other antibiotic agents; Z88.0 Allergy status to penicillin; Z88.8 Allergy status to other drugs, medicaments and biological substances
CPT/HCPCS: 99283

== ENCOUNTER 2018-01-22 19:08 | Emergency (ER) | payer OTHER ==
[2018-01-22] MEDS ORDERED: PROMETHAZINE 25 MG TABLET ONE (20:09)
[2018-01-22] MEDS ORDERED: HYDROCODONE/APAP 10/325 TAB ONE (20:09)
--- NOTE | 2018-01-22 20:26 | EDPHYS ---
Physician Documentation [facility] Name: Barb Cortez Age: 42 yrs Sex: Female : 1975 Arrival Date: 01/22/2018 Time: 19:11 Bed 7 Private MD: ED Physician Gil Boswell HPI: 01/22 20:21 This 42 yrs old Female presents to ER via Wheelchair with complaints of pm1 Headache. 20:21 The patient complains of pain to the forehead. The patient describes the headache as pm1 aching, constant. Onset: The symptoms/episode began/occurred this morning. Associated signs and symptoms: Pertinent positives: dizziness, Photophobia Pertinent negatives: nausea, rash, vision changes, vision loss, vomiting, weakness. Severity of symptoms: in the emergency department the pain is actually worse. Headache History: Other Headache is just like her prior migraines. Patient typically take Imitrex for her migraine headache but she ran out. The symptoms are alleviated by Darkened room, remaining still, the symptoms are aggravated by lights, noise. The patient has experienced similar episodes in the past, multiple times. 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 aj Historical: - Allergies: 19:22 Aspirin; aj 19:22 Benadryl; aj 19:22 Cipro; aj 19:22 IVP DYE; aj 19:22 PENICILLINS; aj 19:22 tramadol; aj - Home Meds: 19:22 amitriptyline 100 mg Oral tab [Active]; Flexeril 10 mg Oral tab 3 times per day aj [Active]; Lantus Sub-Q [Active]; Lipitor 40 mg Oral tab [Active]; Lyrica Oral [Active]; metformin 1,000 mg Oral tab [Active]; Novolog Sub-Q [Active]; prazosin 1 mg Oral cap 1 cap nightly [Active]; Prozac 20 mg Oral cap 1 cap once daily [Active]; symbicort [Active]; - PMHx: 19:22 Bipolar disorder; Depression; Diabetes - IDDM; Hyperlipidemia; Hypertension; Migraines; aj - PSHx: 19:22 ; right kidney removed; Right BKA; aj - Immunization history:: Adult Immunizations up to date. - Social history:: Smoking status: Patient uses tobacco products, smokes one-half pack cigarettes per day. - Ebola Screening: : Patient negative for fever greater than or equal to 101.5 degrees Fahrenheit, and additional compatible Ebola Virus Disease symptoms Patient denies exposure to infectious person Patient denies travel to an Ebola-affected area in the 21 days before illness onset No symptoms or risks identified at this time. ROS: 20:21 Constitutional: Negative for fever, chills, and weight loss, Eyes: Negative for injury, pm1 pain, redness, and discharge, ENT: Negative for injury, pain, and discharge, Neck: Negative for injury, pain, and swelling, Cardiovascular: Negative for chest pain, palpitations, and edema, Respiratory: Negative for shortness of breath, cough, wheezing, and pleuritic chest pain, Abdomen/GI: Negative for abdominal pain, nausea, vomiting, diarrhea, and constipation, Back: Negative for injury and pain, : Negative for injury, bleeding, discharge, and swelling, MS/Extremity: Negative for injury and deformity, Skin: Negative for injury, rash, and discoloration. 20:21 Neuro: Positive for headache, Negative for numbness, tingling. Exam: 20:21 Constitutional: This is a well developed, well nourished patient who is awake, alert, pm1 and in no acute distress. Head/Face: Normocephalic, atraumatic. Eyes: Pupils equal round and reactive to light, extra-ocular motions intact. Lids and lashes normal. Conjunctiva and sclera are non-icteric and not injected. Cornea within normal limits. Periorbital areas with no swelling, redness, or edema. ENT: Nares patent. No nasal discharge, no septal abnormalities noted. Tympanic membranes are normal and external auditory canals are clear. Oropharynx with no redness, swelling, or masses, exudates, or evidence of obstruction, uvula midline. Mucous membranes moist. Neck: Trachea midline, no thyromegaly or masses palpated, and no cervical lymphadenopathy. Supple, full range of motion without nuchal rigidity, or vertebral point tenderness. No Meningismus. Chest/axilla: Normal chest wall appearance and motion. Nontender with no deformity. No lesions are appreciated. Cardiovascular: Regular rate and rhythm with a normal S1 and S2. No gallops, murmurs, or rubs. Normal PMI, no JVD. No pulse deficits. Respiratory: Lungs have equal breath sounds bilaterally, clear to auscultation and percussion. No rales, rhonchi or wheezes noted. No increased work of breathing, no retractions or nasal flaring. Abdomen/GI: Soft, non-tender, with normal bowel sounds. No distension or tympany. No guarding or rebound. No evidence of tenderness throughout. Back: No spinal tenderness. No costovertebral tenderness. Full range of motion. Skin: Warm, dry with normal turgor. Normal color with no rashes, no lesions, and no evidence of cellulitis. 20:21 Musculoskeletal/extremity: Extremities: grossly normal except: right BKA, ROM: intact in all extremities, Circulation is intact in all extremities. Sensation intact. 20:21 Neuro: Orientation: is normal, Mentation: is normal, Cranial nerves: CN II- XII are normal as tested, Cerebellar function: normal finger to nose testing, Motor: moves all fours, Sensation: is normal, no obvious gross deficits. Vital Signs: 19:22 BP 112 / 55; Pulse 107; Resp 17; Temp 98.6; Pulse Ox 99% on R/A; Weight 81.65 kg; aj Height 4 ft. 9 in. (144.78 cm); Pain 9/10; 20:41 BP 126 / 84; Pulse 100; Resp 18; Pulse Ox 99% on R/A; Pain 6/10; aa1 19:22 Body Mass Index 38.95 (81.65 kg, 144.78 cm) aj MDM: 19:39 Patient medically screened. pm1 20:21 Data reviewed: vital signs. Data interpreted: Pulse oximetry: on room air is 99 %. pm1 Interpretation: normal. Counseling: I had a detailed discussion with the patient and/or guardian regarding: the historical points, exam findings, and any diagnostic results supporting the discharge/admit diagnosis, the need for outpatient follow up, to return to the emergency department if symptoms worsen or persist or if there are any questions or concerns that arise at home. Administered Medications: 20:07 Drug: [place] 10 mg-325 mg 1 tabs Route: PO; aa1 20:41 Follow up: Response: No adverse reaction; Pain is decreased aa1 20:07 Drug: Phenergan 25 mg Route: PO; aa1 20:41 Follow up: Response: No adverse reaction; Nausea is decreased aa1 Disposition: 21:02 Co-signature as Attending Physician, Gil Boswell MD. rn Disposition: 01/22/18 20:26 Discharged to Home. Impression: Migraine. - Condition is Stable. - Discharge Instructions: Migraine Headache. - Medication Reconciliation Form, Thank You Letter, Antibiotic Education, Prescription Opioid Use form. - Follow up: Emergency Department; When: As needed; Reason: Worsening of condition. Follow up: Private Physician; When: 2 - 3 days; Reason: Recheck today's complaints, Continuance of care, Re-evaluation by your physician. - Problem is new. - Symptoms have improved. Signatures: Lauren Orosco RN RN aa1 Beatris Ayers RN RN aj Nieto, Roman, MD MD rn Marinas, Patrick, ELDER SYSTEMS PROTECTION TECHNICIAN pm1 Corrections: (The following items were deleted from the chart) 20:44 20:26 01/22/2018 20:26 Discharged to Home. Impression: Migraine. Condition is Stable. aa1 Forms are Medication Reconciliation Form, Thank You Letter, Antibiotic Education, Prescription Opioid Use. Follow up: Emergency Department; When: As needed; Reason: Worsening of condition. Follow up: Private Physician; When: 2 - 3 days; Reason: Recheck today's complaints, Continuance of care, Re-evaluation by your physician. Problem is new. Symptoms have improved. pm1
--- NOTE | 2018-01-22 20:26 | ER ---
Nurse's Notes [facility] Name: Barb Cortez Age: 42 yrs Sex: Female : 1975 Arrival Date: 01/22/2018 Time: 19:11 Bed 7 Private MD: Diagnosis: Migraine Presentation: 01/22 19:20 Presenting complaint: Patient states: Migraine since this AM. Patient reports she is aj out of her Imitrex. Transition of care: patient was not received from another setting of care. Onset of symptoms was January 22, 2018. Risk Assessment: Do you want to hurt yourself or someone else? Patient reports no desire to harm self or others. Initial Sepsis Screen: Does the patient meet any 2 criteria? No. Patient's initial sepsis screen is negative. Does the patient have a suspected source of infection? No. Patient's initial sepsis screen is negative. Care prior to arrival: None. 19:20 Method Of Arrival: Wheelchair 19:20 Acuity: HARI 3 aj Triage Assessment: 19:22 Headache History: The patient has had previous headaches and this one is similar to aj previous episodes, and this one is more severe than previous episodes. General: Appears in no apparent distress. uncomfortable, Behavior is calm, cooperative, appropriate for age. Pain: Complains of pain in face and scalp Pain currently is 8 out of 10 on a pain scale. Pain began gradually, Also complains of nausea. Neuro: Level of Consciousness is awake, alert, obeys commands, Oriented to person, place, time, situation, Appropriate for age. Respiratory: Airway is patent Respiratory effort is even, unlabored, Respiratory pattern is regular, symmetrical. GI: Reports nausea. Derm: Skin is intact, is healthy with good turgor, Skin is pink, warm \T\ dry. normal. 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 aj Historical: - Allergies: 19:22 Aspirin; aj 19:22 Benadryl; aj 19:22 Cipro; aj 19:22 IVP DYE; aj 19:22 PENICILLINS; aj 19:22 tramadol; aj - Home Meds: 19:22 amitriptyline 100 mg Oral tab [Active]; Flexeril 10 mg Oral tab 3 times per day aj [Active]; Lantus Sub-Q [Active]; Lipitor 40 mg Oral tab [Active]; Lyrica Oral [Active]; metformin 1,000 mg Oral tab [Active]; Novolog Sub-Q [Active]; prazosin 1 mg Oral cap 1 cap nightly [Active]; Prozac 20 mg Oral cap 1 cap once daily [Active]; symbicort [Active]; - PMHx: 19:22 Bipolar disorder; Depression; Diabetes - IDDM; Hyperlipidemia; Hypertension; Migraines; aj - PSHx: 19:22 ; right kidney removed; Right BKA; aj - Immunization history:: Adult Immunizations up to date. - Social history:: Smoking status: Patient uses tobacco products, smokes one-half pack cigarettes per day. - Ebola Screening: : Patient negative for fever greater than or equal to 101.5 degrees Fahrenheit, and additional compatible Ebola Virus Disease symptoms Patient denies exposure to infectious person Patient denies travel to an Ebola-affected area in the 21 days before illness onset No symptoms or risks identified at this time. Screenin:40 Abuse screen: Denies threats or abuse. Denies injuries from another. Nutritional aa1 screening: No deficits noted. Tuberculosis screening: No symptoms or risk factors identified. Fall Risk None identified. Assessment: 19:40 General: Appears in no apparent distress. comfortable, Behavior is calm, cooperative, aa1 appropriate for age. Pain: Complains of pain in forehead and scalp and face Pain currently is 10 out of 10 on a pain scale. Quality of pain is described as aching, pressure, throbbing, Is continuous. Neuro: Level of Consciousness is awake, alert, obeys commands, Oriented to person, place, time, situation, Speech is normal, Pupils are PERRLA, Reports headache in entire parietal area, frontal area. Cardiovascular: Heart tones S1 S2 present Rhythm is regular. Respiratory: Airway is patent Respiratory effort is even, unlabored, Respiratory pattern is regular, symmetrical. GI: Reports nausea. : No signs and/or symptoms were reported regarding the genitourinary system. EENT: No signs and/or symptoms were reported regarding the EENT system. Derm: Skin is intact, is healthy with good turgor, Skin is pink, warm \T\ dry. Musculoskeletal: Circulation, motion, and sensation intact. Capillary refill < 3 seconds. 20:41 Reassessment: Patient appears in no apparent distress at this time. Patient is alert, aa1 oriented x 3, equal unlabored respirations, skin warm/dry/pink. Discussed d/c \T\ f/u instructions with pt \T\ family; denies questions or concerns at this time Patient states feeling better. Vital Signs: 19:22 BP 112 / 55; Pulse 107; Resp 17; Temp 98.6; Pulse Ox 99% on R/A; Weight 81.65 kg; aj Height 4 ft. 9 in. (144.78 cm); Pain 9/10; 20:41 BP 126 / 84; Pulse 100; Resp 18; Pulse Ox 99% on R/A; Pain 6/10; aa1 19:22 Body Mass Index 38.95 (81.65 kg, 144.78 cm) aj ED Course: 19:11 Patient arrived in ED. es 19:21 Triage completed. aj 19:22 Arm band placed on left wrist. Patient placed in waiting room, Patient notified of wait aj time. 19:39 Georges Mendoza NP is PHCP. pm1 19:39 Gil Boswell MD is Attending Physician. pm1 19:40 Patient has correct armband on for positive identification. Bed in low position. Call aa1 light in reach. Pulse ox on. NIBP on. 20:03 Lauren Orosco, MARIA ALEJANDRA is Primary Nurse. aa1 20:41 No provider procedures requiring assistance completed. Patient did not have IV access aa1 during this emergency room visit. Administered Medications: 20:07 Drug: [place] 10 mg-325 mg 1 tabs Route: PO; aa1 20:41 Follow up: Response: No adverse reaction; Pain is decreased aa1 20:07 Drug: Phenergan 25 mg Route: PO; aa1 20:41 Follow up: Response: No adverse reaction; Nausea is decreased aa1 Outcome: 20:26 Discharge ordered by . pm1 20:41 Discharged to home via wheelchair, with family. aa1 20:41 Condition: good 20:41 Discharge instructions given to patient, family, Instructed on discharge instructions, follow up and referral plans. Demonstrated understanding of instructions, follow-up care. 20:44 Patient left the ED. aa1 Signatures: Lauren Orosco RN RN aa1 Beatris Ayers RN RN aj Salyer, Edna Georges Mendoza NP FRONT END SPECIALIST pm1
[2018-01-22 20:48] VITALS: TEMP 98.6; O2SAT 99
[2018-01-22 20:49] VITALS: BP 126/84
== END 2018-01-22 20:44 | disposition home or self-care (01) ==
LOC: ER 19:08
DX: G43.909 Migraine, unspecified, not intractable, without status migrainosus (principal); I10 Essential (primary) hypertension; E78.5 Hyperlipidemia, unspecified; E11.9 Type 2 diabetes mellitus without complications; Z79.4 Long term (current) use of insulin; F31.9 Bipolar disorder, unspecified; F17.210 Nicotine dependence, cigarettes, uncomplicated; Z88.0 Allergy status to penicillin; Z88.1 Allergy status to other antibiotic agents; Z88.6 Allergy status to analgesic agent; Z88.8 Allergy status to other drugs, medicaments and biological substances; Z91.041 Radiographic dye allergy status
CPT/HCPCS: 99283

== ENCOUNTER 2018-01-27 21:00 | Emergency (ER) | payer OTHER ==
[2018-01-27] MEDS ORDERED: LORazepam 2 MG/ML VIAL ONE (21:46)
[2018-01-27 21:51] LABS: Absolute Monocytes 0.9 K/uL (0.1-1.3); Absolute Neutrophil 10.9 K/uL (1.8-8.0); Basophils % 0.6 % (0-1.3); Eosinophils % 6.7 % (0-4.4); Lymphocytes % 27.8 % (15.3-44.8); MCH 28.9 pg (27.0-35.0); MCV 83.9 fL (80-100); MPV 7.2 fL (7.6-11.3); Monocytes % 4.7 % (3.3-12.3); RBC Red Blood Cell Count 5.01 M/uL (3.86-4.86)
[2018-01-27 22:09] LABS: Protime INR 1.01
[2018-01-27 22:14] LABS: Potassium 4.3 mmol/L (3.5-5.1)
--- NOTE | 2018-01-27 22:22 | RAD REPORT ---
EXAM DESCRIPTION: [facility] Single View01/27/2018 9:51 pm CLINICAL HISTORY: Chest pain COMPARISON: November 2017 FINDINGS: The lungs appear clear of acute infiltrate. The heart is normal size IMPRESSION: No acute abnormalities displayed
[2018-01-27] MEDS ORDERED: NA CHLORIDE 0.9% 1,000 ML ONE (23:02)
--- NOTE | 2018-01-27 23:28 | EDPHYS ---
Physician Documentation [facility] Name: Barb Cortez Age: 42 yrs Sex: Female : 1975 Arrival Date: 01/27/2018 Time: 21:04 Bed 26 Private MD: ED Physician Warner Lazo HPI: 01/27 23:22 This 42 yrs old Female presents to ER via Ambulatory with complaints of Chest gs Pain, Anxiety. 23:22 The patient or guardian reports chest pain that is located primarily in the anterior gs chest wall. Onset: yesterday. The pain does not radiate. Associated signs and symptoms: Pertinent positives: shortness of breath, Pertinent negatives: nausea, vomiting. The chest pain is described as sharp. Duration: The patient or guardian reports multiple episodes, that are intermittent, that wax and wane, with no pattern. Modifying factors: The symptoms are alleviated by nothing. the symptoms are aggravated by deep breath. Severity of pain: At its worst the pain was moderate in the emergency department the pain has improved moderately. The patient has experienced similar episodes in the past, a few times. 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 kr2 Historical: - Allergies: 22:41 Aspirin; kr2 22:41 Cipro; kr2 22:41 Benadryl; kr2 22:41 IVP DYE; kr2 22:41 PENICILLINS; kr2 22:41 tramadol; kr2 - Home Meds: 22:41 amitriptyline 100 mg Oral tab [Active]; Flexeril 10 mg Oral tab 3 times per day kr2 [Active]; Lantus Sub-Q [Active]; Lipitor 40 mg Oral tab [Active]; Lyrica Oral [Active]; Novolog Sub-Q [Active]; metformin 1,000 mg Oral tab [Active]; prazosin 1 mg Oral cap 1 cap nightly [Active]; Prozac 20 mg Oral cap 1 cap once daily [Active]; symbicort [Active]; 22:43 Imitrex Oral for Migraine [Active]; kr2 - PMHx: 22:43 Bipolar disorder; Depression; Diabetes - IDDM; Hyperlipidemia; Hypertension; Migraines; kr2 - PSHx: 22:41 ; right below the knee amputation; IUD placement; kr2 - Immunization history:: Adult Immunizations unknown. - Social history:: Smoking status: Patient/guardian denies using tobacco. - Ebola Screening: : No symptoms or risks identified at this time. ROS: 23:22 All other systems are negative. gs Exam: 23:22 Head/Face: Normocephalic, atraumatic. Eyes: Pupils equal round and reactive to light, gs extra-ocular motions intact. Lids and lashes normal. Conjunctiva and sclera are non-icteric and not injected. Cornea within normal limits. Periorbital areas with no swelling, redness, or edema. ENT: Nares patent. No nasal discharge, no septal abnormalities noted. Tympanic membranes are normal and external auditory canals are clear. Oropharynx with no redness, swelling, or masses, exudates, or evidence of obstruction, uvula midline. Mucous membranes moist. Neck: Trachea midline, no thyromegaly or masses palpated, and no cervical lymphadenopathy. Supple, full range of motion without nuchal rigidity, or vertebral point tenderness. No Meningismus. Chest/axilla: Normal chest wall appearance and motion. Nontender with no deformity. No lesions are appreciated. 23:22 Abdomen/GI: Soft, non-tender, with normal bowel sounds. No distension or tympany. No guarding or rebound. No evidence of tenderness throughout. Back: No spinal tenderness. No costovertebral tenderness. Full range of motion. Skin: Warm, dry with normal turgor. Normal color with no rashes, no lesions, and no evidence of cellulitis. MS/ Extremity: Pulses equal, no cyanosis. Neurovascular intact. Full, normal range of motion. Neuro: Awake and alert, GCS 15, oriented to person, place, time, and situation. Cranial nerves II-XII grossly intact. Motor strength 5/5 in all extremities. Sensory grossly intact. Cerebellar exam normal. Normal gait. 23:22 Constitutional: The patient appears alert, awake. 23:22 Cardiovascular: Rate: tachycardic, Rhythm: regular, Pulses: no pulse deficits are appreciated, Heart sounds: normal. 23:22 ECG was reviewed by the Attending Physician. 23:22 Respiratory: the patient does not display signs of respiratory distress, Respirations: tachypnea, Breath sounds: are clear throughout. Vital Signs: 21:05 BP 127 / 97; Pulse 115; Resp 18; Pulse Ox 98% ; Weight 81.65 kg; Height 4 ft. 9 in. kr2 (144.78 cm); Pain 10/10; 21:05 BP 102 / 61; Pulse 110; Resp 16; Pulse Ox 98% ; kr2 22:48 BP 100 / 62; Pulse 108; Resp 19; Pulse Ox 96% on R/A; kr2 01/28 00:04 BP 103 / 64; Pulse 96; Resp 19; Pulse Ox 97% on R/A; kr2 00:33 BP 105 / 68; Pulse 97; Resp 18; Pulse Ox 98% on R/A; kr2 01/27 21:05 Body Mass Index 38.95 (81.65 kg, 144.78 cm) kr2 MDM: 01/27 21:29 Patient medically screened. 23:22 Differential diagnosis: abnormal EKG, chest wall pain, pneumonia, pulmonary embolus, gs hyperventilation. Data reviewed: vital signs, nurses notes. Response to treatment: the patient's symptoms have markedly improved after treatment, the patient's symptoms have resolved after treatment, and as a result, I will discharge patient. 01/27 21:34 Order name: Basic Metabolic Panel; Complete Time: 22:18 gs 01/27 21:34 Order name: CBC with Diff; Complete Time: 22:18 gs 01/27 21:34 Order name: PT-INR; Complete Time: 22:18 01/27 21:34 Order name: Troponin (emerg Dept Use Only); Complete Time: 22:18 gs 01/27 21:56 Order name: D-Dimer; Complete Time: 22:18 EDMS 01/27 21:34 Order name: XRAY Chest (1 view); Complete Time: 22:35 gs 01/27 21:34 Order name: EKG; Complete Time: 21:34 gs 01/27 21:34 Order name: Cardiac monitoring; Complete Time: 21:35 gs 01/27 21:34 Order name: EKG - Nurse/Tech; Complete Time: 21:35 gs 01/27 21:34 Order name: IV Saline Lock; Complete Time: 21:36 gs 01/27 21:34 Order name: Labs collected and sent; Complete Time: 21:36 gs 01/27 21:34 Order name: O2 Per Protocol; Complete Time: 21:36 gs 01/27 21:34 Order name: O2 Sat Monitoring; Complete Time: 21:36 gs EC:22 Rate is 107 beats/min. Rhythm is regular. MD interval is normal. QRS interval is gs normal. T waves are Normal. No ST changes noted. Clinical impression: Abnormal EKG without significant change. Interpreted by me. Administered Medications: 21:47 Drug: Ativan 0.5 mg Route: IVP; Site: right antecubital; kr2 22:30 Follow up: Response: No adverse reaction; Anxiety decreased kr2 23:08 Drug: NS 0.9% 1000 ml Route: IV; Rate: 1 bolus; Site: right antecubital; kr2 01/28 00:32 Follow up: Response: No adverse reaction; IV Status: Completed infusion kr2 Disposition: 01/27/18 23:27 Discharged to Home. Impression: Chest pain, unspecified, Hyperventilation. - Condition is Stable. - Discharge Instructions: Nonspecific Chest Pain, Hyperventilation. - Medication Reconciliation Form, Thank You Letter, Antibiotic Education, Prescription Opioid Use form. - Follow up: Private Physician; When: 2 - 3 days; Reason: Re-evaluation by your physician. Signatures: Dispatcher [employer] [facility] Warner Lazo MD MD Yane Valdes RN RN kr2 Corrections: (The following items were deleted from the chart) 01/27 21:56 21:35 D-DIMER+[id number] ordered. [facility] 01/28 00:34 01/27 23:27 01/27/2018 23:27 Discharged to Home. Impression: Chest pain, unspecified; kr2 Hyperventilation. Condition is Stable. Forms are Medication Reconciliation Form, Thank You Letter, Antibiotic Education, Prescription Opioid Use. Follow up: Private Physician; When: 2 - 3 days; Reason: Re-evaluation by your physician. gs
--- NOTE | 2018-01-27 23:28 | ER ---
Nurse's Notes [facility] Name: Barb Cortez Age: 42 yrs Sex: Female : 1975 Arrival Date: 01/27/2018 Time: 21:04 Bed 26 Private MD: Diagnosis: Chest pain, unspecified;Hyperventilation Presentation: 01/27 21:05 Acuity: HARI 3 kr2 21:05 Presenting complaint: Patient states: "It feels like someone is sitting on my chest". kr2 Transition of care: patient was not received from another setting of care. Onset of symptoms was January 27, 2018. Risk Assessment: Do you want to hurt yourself or someone else? Patient reports no desire to harm self or others. Initial Sepsis Screen: Does the patient meet any 2 criteria? No. Patient's initial sepsis screen is negative. Does the patient have a suspected source of infection? No. Patient's initial sepsis screen is negative. Care prior to arrival: None. 21:05 Method Of Arrival: Ambulatory kr2 Triage Assessment: 21:05 General: Appears uncomfortable, well groomed, well developed, well nourished, Behavior kr2 is cooperative, anxious. Pain: Complains of pain in xyphoid area and mid-sternal area Pain does not radiate. Pain currently is 10 out of 10 on a pain scale. Quality of pain is described as pressure, Is continuous, Alleviated by nothing. Aggravated by increased activity. Cardiovascular: Reports chest pain, Heart tones S1 S2 Capillary refill < 3 seconds in bilateral fingers Patient's skin is warm and dry. Rhythm is regular. 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 - control method kr2 Historical: - Allergies: 22:41 Aspirin; kr2 22:41 Cipro; kr2 22:41 Benadryl; kr2 22:41 IVP DYE; kr2 22:41 PENICILLINS; kr2 22:41 tramadol; kr2 - Home Meds: 22:41 amitriptyline 100 mg Oral tab [Active]; Flexeril 10 mg Oral tab 3 times per day kr2 [Active]; Lantus Sub-Q [Active]; Lipitor 40 mg Oral tab [Active]; Lyrica Oral [Active]; Novolog Sub-Q [Active]; metformin 1,000 mg Oral tab [Active]; prazosin 1 mg Oral cap 1 cap nightly [Active]; Prozac 20 mg Oral cap 1 cap once daily [Active]; symbicort [Active]; 22:43 Imitrex Oral for Migraine [Active]; kr2 - PMHx: 22:43 Bipolar disorder; Depression; Diabetes - IDDM; Hyperlipidemia; Hypertension; Migraines; kr2 - PSHx: 22:41 ; right below the knee amputation; IUD placement; kr2 - Immunization history:: Adult Immunizations unknown. - Social history:: Smoking status: Patient/guardian denies using tobacco. - Ebola Screening: : No symptoms or risks identified at this time. Screenin:05 Abuse screen: Denies threats or abuse. Denies injuries from another. Nutritional kr2 screening: No deficits noted. Tuberculosis screening: No symptoms or risk factors identified. Fall Risk Gait- Impaired (20 pts.). Assessment: 21:05 Pain: Pain began suddenly. kr2 21:10 General: Appears in no apparent distress. uncomfortable, well groomed, well developed, kr2 well nourished, Behavior is cooperative, anxious. Pain: Complains of pain in chest-see triage assessment. Pain: Pain does not radiate. Neuro: Level of Consciousness is awake, alert, obeys commands, Oriented to person, place, time, situation, Appropriate for age. Cardiovascular: Heart tones S1 S2 Capillary refill < 3 seconds in bilateral fingers Patient's skin is warm and dry. Rhythm is regular. Respiratory: Airway is patent Respiratory effort is even, unlabored, Respiratory pattern is regular, symmetrical. GI: Abdomen is flat, non-distended, Bowel sounds present X 4 quads. : Denies burning with urination. EENT: Oral mucosa is moist. Derm: Skin is intact, is healthy with good turgor, Skin is dry, Skin is pale, pink, Skin temperature is warm. Musculoskeletal: Amputation of right leg- below the knee. 22:30 Reassessment: Patient appears in no apparent distress at this time. Patient and/or kr2 family updated on plan of care and expected duration. Pain level reassessed. Patient is alert, oriented x 3, equal unlabored respirations, skin warm/dry/pink. Patient states symptoms have improved. 23:43 Reassessment: Patient appears in no apparent distress at this time. Patient and/or kr2 family updated on plan of care and expected duration. Pain level reassessed. Patient is alert, oriented x 3, equal unlabored respirations, skin warm/dry/pink. Chest pain has resolved. 23:45 Reassessment: IV fluids infusing at this time, patient to be discharged upon completion.kr2 01/28 00:34 Reassessment: Patient appears in no apparent distress at this time. Patient and/or kr2 family updated on plan of care and expected duration. Pain level reassessed. Patient is alert, oriented x 3, equal unlabored respirations, skin warm/dry/pink. Patient denies pain at this time. Patient states feeling better. Patient states symptoms have improved. Vital Signs: 01/27 21:05 BP 127 / 97; Pulse 115; Resp 18; Pulse Ox 98% ; Weight 81.65 kg; Height 4 ft. 9 in. kr2 (144.78 cm); Pain 10/10; 21:05 BP 102 / 61; Pulse 110; Resp 16; Pulse Ox 98% ; kr2 22:48 BP 100 / 62; Pulse 108; Resp 19; Pulse Ox 96% on R/A; kr2 01/28 00:04 BP 103 / 64; Pulse 96; Resp 19; Pulse Ox 97% on R/A; kr2 00:33 BP 105 / 68; Pulse 97; Resp 18; Pulse Ox 98% on R/A; kr2 01/27 21:05 Body Mass Index 38.95 (81.65 kg, 144.78 cm) kr2 ED Course: 01/27 21:04 Patient arrived in ED. al2 21:05 Patient maintains SpO2 saturation greater than 95% on room air. kr2 21:05 Arm band placed on. kr2 21:05 Patient has correct armband on for positive identification. Placed in gown. Bed in low kr2 position. Call light in reach. Side rails up X2. Adult w/ patient. teletypesetter monitor on. Pulse ox on. NIBP on. 21:12 Warner Lazo MD is Attending Physician. gs 21:19 Inserted saline lock: 22 gauge in right antecubital area, using aseptic technique. jb5 Blood collected. 21:32 Yane Valdes RN is Primary Nurse. kr2 21:50 X-ray completed. Portable x-ray completed in exam room. Patient tolerated procedure kp1 well. 21:51 XRAY Chest (1 view) In Process Unspecified. EDMS 22:37 Triage completed. kr2 01/28 00:33 No provider procedures requiring assistance completed. IV discontinued, intact, kr2 bleeding controlled, No redness/swelling at site. Pressure dressing applied. Administered Medications: 01/27 21:47 Drug: Ativan 0.5 mg Route: IVP; Site: right antecubital; kr2 22:30 Follow up: Response: No adverse reaction; Anxiety decreased kr2 23:08 Drug: NS 0.9% 1000 ml Route: IV; Rate: 1 bolus; Site: right antecubital; kr2 01/28 00:32 Follow up: Response: No adverse reaction; IV Status: Completed infusion kr2 Outcome: 01/27 23:27 Discharge ordered by . 01/28 00:33 Discharged to home via wheelchair, with family. kr2 Condition: improved Discharge instructions given to patient, family, Instructed on discharge instructions, follow up and referral plans. Demonstrated understanding of instructions, follow-up care. 00:34 Patient left the ED. kr2 Signatures: Dispatcher [employer] EDMS Belinda Short jb5 Ira Dwyer kp1 Warner Lazo MD MD Yane Valdes RN RN kr2 Kirsty Gamino2
[2018-01-28 00:42] VITALS: BP 105/68; O2SAT 98
--- NOTE | 2018-01-28 13:54 | EKG ---
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
== END 2018-01-28 00:34 | disposition home or self-care (01) ==
LOC: ER 21:00
DX: R07.9 Chest pain, unspecified (principal); Z88.0 Allergy status to penicillin; Z88.8 Allergy status to other drugs, medicaments and biological substances; Z88.6 Allergy status to analgesic agent; Z88.3 Allergy status to other anti-infective agents; Z91.041 Radiographic dye allergy status; E11.9 Type 2 diabetes mellitus without complications; Z79.4 Long term (current) use of insulin; I10 Essential (primary) hypertension; E78.5 Hyperlipidemia, unspecified; Z89.511 Acquired absence of right leg below knee; R06.4 Hyperventilation
CPT/HCPCS: 36415; 71045; 80048; 84484; 85025; 85379; 85610; 93005; 96361; 96374; 99285; J7030

== ENCOUNTER 2018-03-07 18:26 | Inpatient (IN) | payer OTHER ==
[2018-03-07] MEDS ORDERED: MORPHINE 4 MG/ML SYR ONE ×2 (18:49→21:58)
[2018-03-07] MEDS ORDERED: NA CHLORIDE 0.9% 1,000 ML ONE (18:49)
[2018-03-07] MEDS ORDERED: ONDANSETRON 4 MG/2 ML VIAL ONE (18:49)
[2018-03-07 19:40] LABS: Absolute Lymphocytes (CBC) 4.2 K/uL (0.7-4.9); Absolute Monocytes 1.6 K/uL (0.1-1.3); Basophils % 0.3 % (0-1.3); Eosinophils % 2.5 % (0-4.4); Hematocrit 40.1 % (36.0-45.0); Lymphocytes % 20.5 % (15.3-44.8); MCV 83.4 fL (80-100); MPV 6.8 fL (7.6-11.3); Monocytes % 7.9 % (3.3-12.3); RBC Red Blood Cell Count 4.81 M/uL (3.86-4.86)
--- NOTE | 2018-03-07 19:46 | RAD REPORT ---
EXAM DESCRIPTION: US - Extremity Nonvascular Limited - 03/07/2018 7:28 pm CLINICAL HISTORY: Left axillary abscess COMPARISON: None TECHNIQUE: Real-time sonographic evaluation of the area of interest was performed. FINDINGS: Multiple small subcutaneous collections are seen in the left axilla, measuring 5 x 6 mm, 1 6 x 12 mm and 7 x 11 mm. These are probably a small subcutaneous abscesses. Mild skin thickening is s een with subcutaneous edema.
[2018-03-07 19:49] LABS: ALT/SGPT 13 U/L (12-78); AST/SGOT 7 U/L (15-37); Albumin 3.1 g/dL (3.4-5.0); Alkaline Phosphatase 92 U/L (45-117); BUN Blood Urea Nitrogen 8 mg/dL (7-18); Bicarbonate 21 mmol/L (21-32); Bilirubin Direct < 0.1 mg/dL (0-0.2); Bilirubin Total 0.4 mg/dL (0.2-1.0); Glucose Level 78 mg/dL (74-106); Potassium 3.4 mmol/L (3.5-5.1); Protein, Total 8.3 g/dL (6.4-8.2); Sodium Level 141 mmol/L (136-145)
[2018-03-07 20:01] LABS: Blood Morphology Comment NOT SEEN (NOT SEEN); Platelet Estimate INCR
[2018-03-07] MEDS ORDERED: CLINDAMYCIN 900MG/D5W 900 MG/50 ML BAG IV ONE (20:44)
--- NOTE | 2018-03-07 20:49 | EDPHYS ---
Physician Documentation [facility] Name: Barb Cortez Age: 42 yrs Sex: Female : 1975 Arrival Date: 03/07/2018 Time: 18:28 Bed 6 Private MD: ED Physician Crescencio Barnes HPI: 03/07 20:41 This 42 yrs old Female presents to ER via EMS with complaints of Abscess. pm1 20:41 The patient presents with an abscess of the left axilla. Description: draining, pm1 swollen, tense. Onset: The symptoms/episode began/occurred 8 day(s) ago. Possible cause(s): unknown. Associated signs and symptoms: Pertinent positives: drainage, fever. Modifying factors: the symptoms are aggravated by squeezing the lesion and expressing the contents, touching. Severity of symptoms: in the emergency department the symptoms are actually worse. The patient has experienced a previous episode, right foot resulting in right BKA after onset of osteomyelitis. The patient has not recently seen a physician, [facility] physician. Onset with 4 small pustules to left axilla 8 days ago that has progressively gotten worse. On and off fevers, Max 100.5 yesterday. Patient has been applying warm compresses and expressing in attempt to resolve it but it has gotten worse. 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 - control method tw2 Historical: - Allergies: 18:36 Aspirin; tw2 18:36 Benadryl; tw2 18:36 IVP DYE; tw2 18:36 PENICILLINS; tw2 18:36 Cipro; tw2 18:36 tramadol; tw2 18:36 Ibuprofen; tw2 - Home Meds: 18:36 amitriptyline 100 mg Oral tab [Active]; Flexeril 10 mg Oral tab 3 times per day tw2 [Active]; Imitrex Oral for Migraine [Active]; Lipitor 40 mg Oral tab [Active]; Lantus Sub-Q [Active]; Lyrica Oral [Active]; metformin 1,000 mg Oral tab [Active]; symbicort [Active]; Prozac 20 mg Oral cap 1 cap once daily [Active]; Novolog Sub-Q [Active]; prazosin 1 mg Oral cap 1 cap nightly [Active]; - PMHx: 18:36 Migraines; Bipolar disorder; Depression; Hypertension; Hyperlipidemia; Diabetes - IDDM; tw2 - PSHx: 18:36 ; right below the knee amputation; IUD placement; tw2 - Immunization history:: Adult Immunizations up to date. - Social history:: Smoking status: Patient/guardian denies using tobacco. - Ebola Screening: : Patient denies travel to an Ebola-affected area in the 21 days before illness onset. ROS: 20:41 Eyes: Negative for injury, pain, redness, and discharge, ENT: Negative for injury, pm1 pain, and discharge, Neck: Negative for injury, pain, and swelling, Cardiovascular: Negative for chest pain, palpitations, and edema, Respiratory: Negative for shortness of breath, cough, wheezing, and pleuritic chest pain, Abdomen/GI: Negative for abdominal pain, nausea, vomiting, diarrhea, and constipation, Back: Negative for injury and pain, MS/Extremity: Negative for injury and deformity. 20:41 Neuro: Negative for headache, weakness, numbness, tingling, and seizure. 20:41 Constitutional: Positive for fever. 20:41 Skin: Positive for abscess, of the left axilla. Exam: 20:41 Constitutional: This is a well developed, well nourished patient who is awake, alert, pm1 and in no acute distress. Head/Face: Normocephalic, atraumatic. Eyes: Pupils equal round and reactive to light, extra-ocular motions intact. Lids and lashes normal. Conjunctiva and sclera are non-icteric and not injected. Cornea within normal limits. Periorbital areas with no swelling, redness, or edema. ENT: Nares patent. No nasal discharge, no septal abnormalities noted. Tympanic membranes are normal and external auditory canals are clear. Oropharynx with no redness, swelling, or masses, exudates, or evidence of obstruction, uvula midline. Mucous membranes moist. Neck: Trachea midline, no thyromegaly or masses palpated, and no cervical lymphadenopathy. Supple, full range of motion without nuchal rigidity, or vertebral point tenderness. No Meningismus. Chest/axilla: Normal chest wall appearance and motion. Nontender with no deformity. No lesions are appreciated. Cardiovascular: Regular rate and rhythm with a normal S1 and S2. No gallops, murmurs, or rubs. Normal PMI, no JVD. No pulse deficits. Respiratory: Lungs have equal breath sounds bilaterally, clear to auscultation and percussion. No rales, rhonchi or wheezes noted. No increased work of breathing, no retractions or nasal flaring. Abdomen/GI: Soft, non-tender, with normal bowel sounds. No distension or tympany. No guarding or rebound. No evidence of tenderness throughout. Back: No spinal tenderness. No costovertebral tenderness. Full range of motion. 20:41 Musculoskeletal/extremity: Extremities: grossly normal except: left BKA. 20:41 Skin: abscess, of the left axilla, with drainage, that is purulent, with surrounding cellulitis, 5 cm x 8 cm. 20:41 Neuro: Orientation: is normal, Motor: moves all fours. Vital Signs: 18:30 BP 111 / 72; Pulse 97; Resp 18; Temp 98.7(O); Pulse Ox 97% on R/A; Pain 10/10; tw2 19:19 BP 116 / 70; Pulse 92; Resp 16; Pulse Ox 98% on R/A; ak1 21:14 BP 108 / 70; Pulse 86; Resp 16; Temp 98.8; Pulse Ox 100% on R/A; Pain 0/10; ak1 MDM: 18:29 Patient medically screened. pm1 20:47 Data reviewed: vital signs. Data interpreted: Pulse oximetry: on room air is 97 %. pm1 Interpretation: normal. Counseling: I had a detailed discussion with the patient and/or guardian regarding: the historical points, exam findings, and any diagnostic results supporting the discharge/admit diagnosis, lab results, radiology results, the need for further work-up and treatment in the hospital. 21:30 Physician consultation: Shar Castellon MD was contacted at 21:30, regarding admission, pm1 would like further tests performed, culture(s), wound, in the emergency department to see patient at 21:30. 21:42 ED course: Needle aspiration of left axillary abscess performed by me and wound culture pm1 collected. 03/07 18:40 Order name: CBC with Diff; Complete Time: 20:09 pm1 03/07 18:40 Order name: BMP; Complete Time: 20: pm1 03/07 18:40 Order name: Hepatic Function; Complete Time: 20: pm1 03/07 18:40 Order name: Blood Culture Adult (2) pm1 03/07 18:40 Order name: Procalcitonin; Complete Time: 20:18 pm1 03/07 18:40 Order name: Lactate; Complete Time: 20:09 pm1 03/07 18:42 Order name: US Extrmty Nonvasular Limited; Complete Time: 19:48 pm1 03/07 20:01 Order name: Manual Differential; Complete Time: 20:09 EDNJ 03/07 21:42 Order name: Wound Culture pm1 03/07 18:40 Order name: IV Saline Lock; Complete Time: 19:00 pm1 Administered Medications: 19:00 Drug: NS 0.9% 1000 ml Route: IV; Rate: 1000 ml; Site: right antecubital; la1 20:05 Follow up: IV Status: Completed infusion ak1 19:00 Drug: morphine 4 mg Route: IVP; Site: right antecubital; la1 20:33 Follow up: Response: No adverse reaction ak1 19:00 Drug: Zofran 4 mg Route: IVP; Site: right antecubital; la1 20:33 Follow up: Response: No adverse reaction ak1 20:43 Drug: Clindamycin 900 mg Route: IVPB; Infused Over: 30 mins; Site: right antecubital; ak1 21:13 Follow up: IV Status: Completed infusion ak1 21:56 Drug: morphine 4 mg Route: IVP; Site: right antecubital; ak1 21:57 Follow up: Response: No adverse reaction ak1 Disposition: 03/08 06:51 Co-signature as Attending Physician, Crescencio Barnes MD I agree with the assessment and gera plan of care. Disposition: 03/07/18 20:49 Hospitalization ordered by Shar Castellon for Inpatient Admission. Preliminary diagnosis are Cutaneous abscess of left axilla, Cellulitis of left axilla. - Bed requested for Telemetry/MedSurg (Inpatient). - Status is Inpatient Admission. ak1 - Condition is Stable. - Problem is new. - Symptoms have improved. UTI on Admission? No Signatures: Dispatcher [employer] EDJaney Geiger RN RN kl Anderson, Corey, MD MD cha Attema, Lee, RN RN la1 Krenek, Amber, RN RN ak1 Georges Mendoza, ELDER PASSENGER CONDUCTOR pm1 Carol Vo RN RN tw2 Corrections: (The following items were deleted from the chart) 03/07 21:12 20:49 Hospitalization Ordered by Shar Castellon MD for Inpatient Admission. Preliminary kl diagnosis is Cutaneous abscess of left axilla; Cellulitis of left axilla. Bed requested for Telemetry/MedSurg (Inpatient). Status is Inpatient Admission. Condition is Stable. Problem is new. Symptoms have improved. UTI on Admission? No. pm1 22:32 21:12 03/07/2018 20:49 Hospitalization Ordered by Shar Castellon MD for Inpatient ak1 Admission. Preliminary diagnosis is Cutaneous abscess of left axilla; Cellulitis of left axilla. Bed requested for Telemetry/MedSurg (Inpatient). Status is Inpatient Admission. Condition is Stable. Problem is new. Symptoms have improved. UTI on Admission? No. kl
--- NOTE | 2018-03-07 20:49 | ER ---
Nurse's Notes [facility] Name: Barb Cortez Age: 42 yrs Sex: Female : 1975 Arrival Date: 03/07/2018 Time: 18:28 Bed 6 Private MD: Diagnosis: Cutaneous abscess of left axilla;Cellulitis of left axilla Presentation: 03/07 18:23 Presenting complaint: EMS states: pt with LEFT axilla , pt has multiple boils/abscess, tw2 x 1week, tried to do warm compresses, has been having fever off and on, Diabetic, Right BKA. Transition of care: patient was not received from another setting of care. Onset of symptoms was March 07, 2018. Risk Assessment: Do you want to hurt yourself or someone else? Patient reports no desire to harm self or others. Initial Sepsis Screen: Does the patient meet any 2 criteria? No. Patient's initial sepsis screen is negative. Does the patient have a suspected source of infection? Yes: Skin breakdown/wound. Care prior to arrival: None. 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 - control method tw2 Historical: - Allergies: 18:36 Aspirin; tw2 18:36 Benadryl; tw2 18:36 IVP DYE; tw2 18:36 PENICILLINS; tw2 18:36 Cipro; tw2 18:36 tramadol; tw2 18:36 Ibuprofen; tw2 - Home Meds: 18:36 amitriptyline 100 mg Oral tab [Active]; Flexeril 10 mg Oral tab 3 times per day tw2 [Active]; Imitrex Oral for Migraine [Active]; Lipitor 40 mg Oral tab [Active]; Lantus Sub-Q [Active]; Lyrica Oral [Active]; metformin 1,000 mg Oral tab [Active]; symbicort [Active]; Prozac 20 mg Oral cap 1 cap once daily [Active]; Novolog Sub-Q [Active]; prazosin 1 mg Oral cap 1 cap nightly [Active]; - PMHx: 18:36 Migraines; Bipolar disorder; Depression; Hypertension; Hyperlipidemia; Diabetes - IDDM; tw2 - PSHx: 18:36 ; right below the knee amputation; IUD placement; tw2 - Immunization history:: Adult Immunizations up to date. - Social history:: Smoking status: Patient/guardian denies using tobacco. - Ebola Screening: : Patient denies travel to an Ebola-affected area in the 21 days before illness onset. Screenin:31 Abuse screen: Denies threats or abuse. Nutritional screening: No deficits noted. tw2 Tuberculosis screening: No symptoms or risk factors identified. Fall Risk None identified. Assessment: 18:38 General: Appears uncomfortable, obese, unkempt, Behavior is cooperative, appropriate tw2 for age. Pain: Complains of pain in left axilla. Neuro: Level of Consciousness is awake, alert, obeys commands, Oriented to person, place, time, situation. Cardiovascular: Denies chest pain, shortness of breath, Heart tones S1 S2 Capillary refill < 3 seconds Patient's skin is warm and dry. Respiratory: Airway is patent Respiratory effort is even, unlabored, Respiratory pattern is regular, symmetrical, Breath sounds are clear bilaterally. GI: No signs and/or symptoms were reported involving the gastrointestinal system. Abdomen is round obese, Bowel sounds present X 4 quads. : No signs and/or symptoms were reported regarding the genitourinary system. EENT: No signs and/or symptoms were reported regarding the EENT system. Derm: Abscess located on left axilla. Musculoskeletal: Amputation of right knee. 19:17 General: Appears in no apparent distress. uncomfortable, obese, unkempt, Behavior is ao calm, cooperative, appropriate for age. Neuro: Level of Consciousness is awake, alert, obeys commands. Respiratory: Airway is patent Respiratory effort is even, unlabored, Respiratory pattern is regular, symmetrical. GI: Abdomen is round obese. : No signs and/or symptoms were reported regarding the genitourinary system. EENT: No signs and/or symptoms were reported regarding the EENT system. Derm: Skin is normal, Abscess. Musculoskeletal: Amputation of right leg. 21:13 Reassessment: Patient appears in no apparent distress at this time. No changes from ak1 previously documented assessment. pt resting comfortably. pt informed of need for admit. will continue to monitor. 22:30 Reassessment: report given to Meli nurse for 222. ak1 Vital Signs: 18:30 BP 111 / 72; Pulse 97; Resp 18; Temp 98.7(O); Pulse Ox 97% on R/A; Pain 10/10; tw2 19:19 BP 116 / 70; Pulse 92; Resp 16; Pulse Ox 98% on R/A; ak1 21:14 BP 108 / 70; Pulse 86; Resp 16; Temp 98.8; Pulse Ox 100% on R/A; Pain 0/10; ak1 ED Course: 18:28 Patient arrived in ED. tw2 18:29 Georges Mendoza NP is PHCP. pm1 18:29 Crescencio Barnes MD is Attending Physician. pm1 18:30 Triage completed. tw2 18:30 Arm band placed on. tw2 18:30 Bed in low position. Call light in reach. Side rails up X2. Pulse ox on. NIBP on. tw2 18:41 Carol Vo RN is Primary Nurse. tw2 19:00 Report given to MARIA ALEJANDRA Tellez. tw2 19:00 Inserted saline lock: 20 gauge in right antecubital area, using aseptic technique. la1 Blood collected. 19:28 US Extrmty Nonvasular Limited In Process Unspecified. EDMS 20:48 Shar Castellon MD is Hospitalizing Provider. pm1 21:01 No provider procedures requiring assistance completed. Patient admitted, IV remains in ak1 place. 21:50 Wound Culture Sent. ak1 Administered Medications: 19:00 Drug: NS 0.9% 1000 ml Route: IV; Rate: 1000 ml; Site: right antecubital; la1 20:05 Follow up: IV Status: Completed infusion ak1 19:00 Drug: morphine 4 mg Route: IVP; Site: right antecubital; la1 20:33 Follow up: Response: No adverse reaction ak1 19:00 Drug: Zofran 4 mg Route: IVP; Site: right antecubital; la1 20:33 Follow up: Response: No adverse reaction ak1 20:43 Drug: Clindamycin 900 mg Route: IVPB; Infused Over: 30 mins; Site: right antecubital; ak1 21:13 Follow up: IV Status: Completed infusion ak1 21:56 Drug: morphine 4 mg Route: IVP; Site: right antecubital; ak1 21:57 Follow up: Response: No adverse reaction ak1 Outcome: 20:49 Decision to Hospitalize by Provider. pm1 21:01 Condition: stable ak1 21:15 Admitted to Med/surg accompanied by tech, via wheelchair, room 222, with chart. ak1 21:15 Instructed on the need for admit. 22:32 Patient left the ED. ak1 Signatures: Dispatcher [employer] EDMS Amrit Guerrero RN RN la1 Niesha Quinonez RN RN ak1 Geoff Lucas RN Georges Whitlock, ELDER COLLECTION SYSTEMS WORKER pm1 Carol Vo RN RN tw2 Corrections: (The following items were deleted from the chart) 21:15 19:19 BP 116 / 70; Pulse 92bpm; Resp 16bpm; Pulse Ox 18%; ao ak1
--- NOTE | 2018-03-07 21:51 | P.HP ---
Certification for Inpatient Patient admitted to: Inpatient With expected LOS: >2 Midnights Practitioner: I am a practitioner with admitting privileges, knowledge of patient current condition, hospital course, and medical plan of care. Services: Services provided to patient in accordance with Admission requirements found in Title 42 Section 412.3 of the Code of Federal Regulations Patient History Date of Service: 03/07/18 Reason for admission: Cellulitis/abscess left axilla History of Present Illness: Ms Cortez is a 42-year-old woman with history of insulin-dependent diabetes mellitus, hypertension, bipolar disorder, right BKA, who start about 1 week ago with left axilla boils. She tried to apply hot compress, but did not work. She has had fever up to 100.2F. She came today because the area turned red, more tender, and swollen. Workup in ER with an ultrasound was remarkable for multiple small subcutaneous abscess. Lab work shows leukocytosis 20.3 K, with normal lactate and procalcitonin. Allergies aspirin Allergy (Verified 06/03/17 01:23) Itching/Hives/Rash ciprofloxacin [From Cipro] Allergy (Verified 06/03/17 01:23) Hives/Rash diphenhydramine [From Benadryl] Allergy (Unverified 01/05/18 00:26) Unknown mushroom Allergy (Verified 06/03/17 01:23) Hives/Rash Penicillins Allergy (Verified 06/03/17 01:23) Hives/Rash tramadol Allergy (Unverified 01/22/18 20:48) Unknown IVP Dye Adverse Reaction (Uncoded 06/03/17 01:23) Shortness of breath mushrooms Adverse Reaction (Uncoded 06/03/17 04:47) Anaphylaxis Home medications list reviewed: Yes Home Medications: Atorvastatin Calcium [Lipitor] 40 mg PO DAILY #30 tab 06/03/17 Cyclobenzaprine [Flexeril*] 10 mg PO BIDP PRN 06/03/17 Gabapentin 800 mg PO TID #30 tablet 06/03/17 Insulin Detemir [Levemir Flextouch] 10 unit SQ DAILY #7 insuln.pen 06/03/17 Lisinopril 10 mg PO DAILY #30 tablet 06/03/17 Metformin HCl 1,000 mg PO BID #30 tablet 06/03/17 Mirtazapine [Remeron] 15 mg PO BEDTIME #30 tablet 06/03/17 Sertraline [Zoloft*] 100 mg PO DAILY #30 tab 06/03/17 - Past Medical/Surgical History Diabetic: Yes -: Diab. -: Hypertension -: severe depression -: PTSD -: high cholesterol -: BKA right leg -: right kidney removal -: x 2 - Family History Father -: Heart disease, Diabetes Mother -: Diabetes - Social History Smoking Status: Current every day smoker Counseled patient to stop smoking for: less than 10 minutes Smoking therapy provided: Yes Patient receptive to therapy: No Alcohol use: No CD- Drugs: No Caffeine use: Yes Place of Residence: Home Review of Systems 10-point ROS is otherwise unremarkable Physical Examination - Physical Exam General: Alert, In no apparent distress HEENT: Atraumatic, PERRLA, Mucous membr. moist/pink, EOMI, Sclerae nonicteric Neck: Supple, 2+ carotid pulse no bruit, No LAD, Without JVD or thyroid abnormality Respiratory: Clear to auscultation bilaterally, Normal air movement Cardiovascular: Regular rate/rhythm, Normal S1 S2 Capillary refill: <2 Seconds Gastrointestinal: Normal bowel sounds, No tenderness Musculoskeletal: No tenderness, Other (Status post right BKA) Integumentary: Tenderness/swelling (Left axilla), Erythema (Left axilla), Warmth (Left axilla) Neurological: Normal speech, Normal tone, Normal affect - Studies Laboratory Data (last 24 hrs) 03/07/18 18:55: Sodium 141, Potassium 3.4 L, BUN 8, Creatinine 0.70, Glucose 78 , Total Bilirubin 0.4, AST 7 L, ALT 13, Alkaline Phosphatase 92 03/07/18 18:55: WBC 20.3 H*, Hgb 13.5, Hct 40.1, Plt Count 567 H Assessment and Plan - Problems (Diagnosis) (1) Diabetes mellitus Current Visit: Yes Status: Acute Qualifiers: Diabetes mellitus type: type 2 Diabetes mellitus meterman insulin use: with fpc use Diabetes mellitus complication status: with circulatory complication Diabetes mellitus complication detail: with other circulatory complications Qualified Code(s): E11.59 - Type 2 diabetes mellitus with other circulatory complications; Z79.4 - retirement (current) use of insulin (2) Hypertension Current Visit: Yes Status: Acute Qualifiers: Hypertension type: essential hypertension Qualified Code(s): I10 - Essential (primary) hypertension (3) Cellulitis Current Visit: Yes Status: Acute Qualifiers: Site of cellulitis: extremity Site of cellulitis of extremity: axilla Laterality: left Qualified Code(s): L03.112 - Cellulitis of left axilla (4) Subcutaneous abscess Current Visit: Yes Status: Acute Qualifiers: Site of cutaneous abscess: extremity Site of cutaneous abscess of extremity : axilla Laterality: left Qualified Code(s): L02.412 - Cutaneous abscess of left axilla - Plan The patient would be admitted to the hospital due to cellulitis/multiple subcutaneous abscess. She has leukocytosis and normal lactate and procalcitonin , blood cultures in process, will order empiric treatment with vancomycin and Levaquin. Will consult surgery team for evaluation recommendation. Keep her NPO after midnight for potential I&D. - Advance Directives Does patient have a Living Will: No Does patient have a Durable POA for Healthcare: No - Code Status/Comfort Care Code Status Assessed: Yes Code Status: Full Code
[2018-03-07] MEDS ORDERED: Levofloxacin 750mg IV 750 MG/150 ML BAG IV SCH (22:49)
[2018-03-07] MEDS ORDERED: ACETAMINOPHEN 500 MG TAB PO PRN (22:49)
[2018-03-07 23:52] VITALS: BMI 37.4
[2018-03-08] MEDS: NA CHLORIDE 0.9% 1,000 ML IV SCH ×3 (00:08→12:49)
[2018-03-08] MEDS ORDERED: AZTREONAM 1 GM/VIAL ONE (00:43)
[2018-03-08] MEDS ORDERED: VANCOMYCIN 1 GM/VIAL ONE (00:43)
[2018-03-08] MEDS ORDERED: POTASSIUM 25 MEQ EFFERV TAB PO ONE (00:43)
[2018-03-08] MEDS ORDERED: NA CHLORIDE 0.9% 500 ML ONE (00:44)
[2018-03-08] MEDS ORDERED: VANCOMYCIN 500 MG/VIAL ONE (00:44)
[2018-03-08] MEDS ORDERED: NA CHLORIDE 0.9% 100 ML ONE (00:57)
[2018-03-08] MEDS ORDERED: AZTREONAM 1 GM/VIAL IV SCH (01:00)
[2018-03-08] MEDS: KETOROLAC 30 MG/ML INJ IV PRN ×3 (02:09→17:27)
[2018-03-08] MEDS: ONDANSETRON 4 MG/2 ML VIAL IV PRN ×2 (02:09→09:02)
[2018-03-08] MEDS: VANCOMYCIN 1.5 GM in NA CHLORIDE 0.9% 500 ML IVPB SCH ×2 (02:13→21:56)
[2018-03-08 07:08] LABS: Absolute Lymphocytes (CBC) 3.5 K/uL (0.7-4.9); Absolute Monocytes 1.6 K/uL (0.1-1.3); Absolute Neutrophil 13.2 K/uL (1.8-8.0); Basophils % 0.3 % (0-1.3); Eosinophils % 2.4 % (0-4.4); Hematocrit 34.3 % (36.0-45.0); Lymphocytes % 18.4 % (15.3-44.8); MCH 28.4 pg (27.0-35.0); MCV 83.2 fL (80-100); Monocytes % 8.3 % (3.3-12.3); RBC Red Blood Cell Count 4.13 M/uL (3.86-4.86)
[2018-03-08 07:16] LABS: BUN Blood Urea Nitrogen 9 mg/dL (7-18); Bicarbonate 23 mmol/L (21-32); Glucose Level 201 mg/dL (74-106); Potassium 3.5 mmol/L (3.5-5.1); Sodium Level 143 mmol/L (136-145)
[2018-03-08] MEDS: INSULIN -REGULAR HUMAN 50 UNIT/0.5 ML ML SQ SCH ×5 (07:50→21:56)
[2018-03-08] MEDS ORDERED: Magnesium Sulfate 2gm IVPB 2 G/50 ML BAG IV ONE (08:30)
[2018-03-08 08:56] LABS: Urine Appearance CLOUDY; Urine Blood 3+ (NEG); Urine Color DK YELLOW; Urine Glucose TRACE (NEG); Urine Protein 1+ (NEG); Urine Specific Gravity 1.025 (1.005-1.030)
[2018-03-08 08:57] LABS: Urine Microscopic Reflex ORDER UMIC
[2018-03-08 09:00] LABS: Urine Bilirubin 1+ (NEG)
[2018-03-08] MEDS ORDERED: KCL 20 MEQ/100 mL IVPB 20 MEQ/100 ML BAG IV SCH (09:00)
[2018-03-08] MEDS ORDERED: VANCOMYCIN 1 GM in NA CHLORIDE 0.9% 500 ML IVPB SCH (09:00)
[2018-03-08 09:06] LABS: Urine Bacteria >50 /HPF (<20); Urine Culture Reflex Order NOT NEEDED; Urine Mucus LIGHT /HPF (NONE SEEN); Urine RBC >50 /HPF (NONE SEEN)
[2018-03-08] MEDS: AZTREONAM 1 GM in NA CHLORIDE 0.9% 50 ML IV SCH ×2 (10:11→17:27)
[2018-03-08] MEDS ORDERED: FENTANYL CITR 100 MCG/2 ML ONE (10:33)
[2018-03-08] MEDS ORDERED: PROPOFOL 200 MG/20 ML VIAL IV ONE (10:33)
[2018-03-08] MEDS ORDERED: ONDANSETRON HCL 40 MG/20 ML VIAL ONE (10:33)
[2018-03-08] MEDS ORDERED: MIDAZOLAM HCL 2 MG/2 ML INJ ONE (10:33)
[2018-03-08] MEDS ORDERED: LIDOCAINE 1% MPF 30 ML VIAL ONE (10:34)
[2018-03-08] MEDS ORDERED: PNEUMOCOCCAL VACCINE 0.5 ML IMVAC ONE (11:00)
--- NOTE | 2018-03-08 11:32 | P.BOP ---
Preoperative diagnosis: cellulitis abscess left axilla Postoperative diagnosis: same Primary procedure: Incision and drainage of complex left axillary abscess [id number] Estimated blood loss: <20cc Specimen: pus Findings: multiloculted deep axillary complex abscess Anesthesia: General Drain(s): Other Transferred to: Recovery Room Condition: Fair
[2018-03-08] MEDS: MEPERIDINE HCL 50 MG/ML AMP ONE ×8 (11:50→12:25)
[2018-03-08] MEDS ORDERED: SUMATRIPTAN SUCCI 50 MG TAB PO PRN (12:50)
[2018-03-08] MEDS ORDERED: PRAZOSIN HCL 1 MG CAP PO PRN (12:50)
[2018-03-08] MEDS ORDERED: Budesonide/Formoterol Fumarate (Symbicort) 160-4.5 Mcg Inhaler IH PRN (12:50)
[2018-03-08] MEDS: CYCLOBENZAPRINE 10 MG TAB PO SCH ×2 (14:00→21:55)
--- NOTE | 2018-03-08 16:13 | CON ---
Date of Consultation: 03/08/2018 Diagnoses: Left axillary abscess and cellulitis large. History Of Present Illness: This is a case of a 42-year-old patient with history of diabetes, hypert ension, and peripheral vascular disease, comes to us with a large area of swelling of the left axilla ry region consistent with an abscess. The patient was admitted to the hospital. Surgical consult wa s obtained. The patient states, she has had some fever. She has been having this for the last week. She was put a warm compress, but has not helped. Allergies: INCLUDE ASPIRIN, CIPRO, , BENADRYL, PENICILLIN, TRAMADOL. Family History: Includes heart disease and diabetes. Past Surgical History: Surgeries includes right BKA and . The patient also has had right k idney removal. Review of Systems: Otherwise unremarkable. Physical Examination: General: The patient is awake and alert. HEENT: Pupils anicteric. Neck: Supple. Chest: Clear. Abdomen: Soft and depressible. No guarding or rebound. Extremities: Good peripheral pulses. The patient has BKA On the axillary region, the pat ient has a left area with about 15 x 20 cm area of cellulitis and complex abscess. The patient neede d incision and drainage . Laboratory Data: Blood work shows WBC count of 20.3 with hemoglobin of 13.5. Glucose 201. Extremit y ultrasound interpreted by as abscess. Assessment: This is a 42-year-old patient with left axillary abscess. Benefits, alternatives and ri sks of incision and drainage were explained, which include, but are not limited to infection, bleedin g, damage to adjacent structures, anesthesia complication, nonhealing wound, [place], and even . She also understands this may not relieve any symptoms. She might need more than one surgical intervent ion. She understands. She will require packing. She was explained the importance of complying with antibiotics treatment and also diabetes control. HM/MODL Voice ID: [id number] Report ID: [id number]
--- NOTE | 2018-03-08 20:34 | PN ---
Date of Progress Note: 03/08/2018 Subjective: The patient is seen and examined. Chart reviewed and case discussed with RN. The patient had debridement done today by Dr. Osorio, and case discussed with him. The patient does report some pain. Review of Systems: Negative except as above. Medications: List reviewed. Physical Examination: Vital Signs: Temperature 98.2, heart rate 94, blood pressure 110/78, respirations 18, O2 99% on room air. General: Awake, alert, oriented x3. No acute distress. CV: S1, S2. No murmurs. Peripheral pulses present. Respiratory: Moving air well bilaterally. No wheezing. No stridor. Gastrointestinal: Abdomen is soft, nontender, nondistended. Positive bowel sounds. Extremities: No clubbing, cyanosis, or edema. MSK: R BKA Skin: The patient has some tenderness and swelling of the left axilla and erythema along with some warm to touch and bandage. Neuro: Cranial nerves 2 through 12 intact grossly. No focal neurological deficit. Speech is normal. Laboratory Data: Sodium 143, potassium 3.5, chloride 112, CO2 23, BUN 9, creatinine 0.7, glucose 201, calcium 8.2, magnesium 1.5. WBC 18.8, H and H 11.7 and 34.3, platelets 458, neutrophils 70%. Blood cultures pending. Wound cultures from the abscess also pending. Assessment And Plan: 1. Cellulitis of the left upper extremity, axilla. 2. Diabetes mellitus type 2 with long-term use of insulin w hyperglycemia. Continue sliding scale insulin and resume home dose. 3. Essential hypertension, stable. Resume home medications. 4. Subcutaneous abscess of the left axilla, status post I and D. We will continue antibiotics. Follow up on cultures. 5. Gastrointestinal and deep venous thrombosis prophylaxis addressed. SA/MODL Voice ID: [id number] Report ID: [id number] KM
[2018-03-08] MEDS: AMITRIPTYLINE 50 MG TAB PO SCH (21:55)
[2018-03-08] MEDS: ATORVASTATIN 40 MG TAB PO SCH (21:55)
[2018-03-08] MEDS: INSULIN GLARGINE 100 UNITS/ML SQ SCH (21:56)
[2018-03-09] MEDS: AZTREONAM 1 GM in NA CHLORIDE 0.9% 50 ML IV SCH ×3 (00:10→17:00)
[2018-03-09] MEDS: KETOROLAC 30 MG/ML INJ IV PRN ×2 (00:49→09:02)
[2018-03-09 01:36] VITALS: O2SAT 98
[2018-03-09] MEDS: PANTOPRAZOLE 40MG TABLET PO SCH (05:41)
[2018-03-09] MEDS: NA CHLORIDE 0.9% 1,000 ML IV SCH ×3 (05:41→20:48)
[2018-03-09 06:51] LABS: Absolute Lymphocytes (CBC) 3.4 K/uL (0.7-4.9); Absolute Monocytes 1.1 K/uL (0.1-1.3); Absolute Neutrophil 10.8 K/uL (1.8-8.0); Basophils % 0.4 % (0-1.3); Hematocrit 32.8 % (36.0-45.0); Lymphocytes % 21.1 % (15.3-44.8); MCH 28.3 pg (27.0-35.0); MCV 83.2 fL (80-100); MPV 6.8 fL (7.6-11.3); Monocytes % 6.8 % (3.3-12.3); RBC Red Blood Cell Count 3.94 M/uL (3.86-4.86)
[2018-03-09 07:14] LABS: BUN Blood Urea Nitrogen 7 mg/dL (7-18); Bicarbonate 25 mmol/L (21-32); Glucose Level 154 mg/dL (74-106); Potassium 4.2 mmol/L (3.5-5.1); Sodium Level 143 mmol/L (136-145)
[2018-03-09] MEDS: INSULIN -REGULAR HUMAN 50 UNIT/0.5 ML ML SQ SCH ×4 (07:30→21:00)
[2018-03-09] MEDS: FLUOXETINE 20 MG CAP PO SCH (09:01)
[2018-03-09] MEDS: CYCLOBENZAPRINE 10 MG TAB PO SCH ×3 (09:01→20:46)
[2018-03-09] MEDS: VANCOMYCIN 1.5 GM in NA CHLORIDE 0.9% 500 ML IVPB SCH (14:13)
[2018-03-09] MEDS ORDERED: ENOXAPARIN 40 MG/0.4 ML SQ SCH (17:00)
--- NOTE | 2018-03-09 20:46 | PN ---
Date of Progress Note: 03/09/2018 History: The patient seen and examined, chart reviewed, and case discussed with RN and Dr. Osorio. The patient states that she is still having some pain , although overall improving. Review of Systems: Negative except as above. Medications: List reviewed. Physical Examination: Vital Signs: Temperature 97.2, heart rate 81, blood pressure 128/67, respirations 17, O2 saturation 99% on room air. General: Awake, alert, oriented x3, not in acute distress. Appears older than stated age. Morbidly obese female. Heart: S1, S2. No murmurs. Regular rate and rhythm. Peripheral pulse present. Respiratory: Clear to auscultation bilaterally. No wheezing. Gastrointestinal: Abdomen is soft, nontender, nondistended. Positive bowel sounds. Extremities: No clubbing, cyanosis, edema. Musculoskeletal: The patient has right BKA. Skin: Left axilla incision site clean, dry, intact. No drainage. Neurologic: Nonfocal. Laboratory Data: Sodium 143, potassium 4.2, chloride 111, CO2 25, BUN 7, creatinine 0.6, glucose 154, calcium 8.3. WBC 16, H and H 11.2 and 32.8, platelets 473, neutrophils 67%. Blood cultures no growth to date. Wound abscess prelim showing 2+ coagulase positive staph, likely Staph aureus. Assessment And Plan: A 42-year-old female with, 1. Cellulitis of the left upper extremity secondary to abscess in the axilla. 2. Left axilla abscess status post incision and drainage. Continue with antibiotics and broad-spectrum antibiotics. Wound cultures showing staph aureus , sensitivities pending. 3. Essential hypertension, stable. 4. Diabetes mellitus type 2 with long-term use of insulin with hyperglycemia We will continue sliding scale insulin and resume home dose. 5. Status post right below-knee amputation. 6. Gastrointestinal, deep vein thrombosis prophylaxis. We will add Lovenox as patient is 24 hours postsurgical intervention. SA/MODL Voice ID: [id number] Report ID: [id number] MTDD
[2018-03-09] MEDS: AMITRIPTYLINE 50 MG TAB PO SCH (20:47)
[2018-03-09] MEDS: ATORVASTATIN 40 MG TAB PO SCH (20:47)
[2018-03-09] MEDS: INSULIN GLARGINE 100 UNITS/ML SQ SCH (21:01)
[2018-03-10] MEDS: NA CHLORIDE 0.9% 1,000 ML IV SCH ×3 (00:12→10:49)
[2018-03-10] MEDS: AZTREONAM 1 GM in NA CHLORIDE 0.9% 50 ML IV SCH ×2 (00:14→09:00)
[2018-03-10] MEDS: PANTOPRAZOLE 40MG TABLET PO SCH (06:02)
[2018-03-10 07:27] LABS: Absolute Monocytes 0.9 K/uL (0.1-1.3); Absolute Neutrophil 8.4 K/uL (1.8-8.0); Basophils % 0.5 % (0-1.3); Eosinophils % 5.1 % (0-4.4); Hematocrit 32.9 % (36.0-45.0); Lymphocytes % 23.1 % (15.3-44.8); MCH 28.5 pg (27.0-35.0); MCV 82.9 fL (80-100); MPV 6.4 fL (7.6-11.3); Monocytes % 7.2 % (3.3-12.3); RBC Red Blood Cell Count 3.97 M/uL (3.86-4.86)
[2018-03-10] MEDS: INSULIN -REGULAR HUMAN 50 UNIT/0.5 ML ML SQ SCH ×2 (07:30→11:30)
[2018-03-10 07:46] LABS: ALT/SGPT 11 U/L (12-78); AST/SGOT 8 U/L (15-37); Albumin 2.3 g/dL (3.4-5.0); Alkaline Phosphatase 69 U/L (45-117); BUN Blood Urea Nitrogen 6 mg/dL (7-18); Bicarbonate 22 mmol/L (21-32); Bilirubin Total 0.1 mg/dL (0.2-1.0); Glucose Level 158 mg/dL (74-106); Potassium 3.8 mmol/L (3.5-5.1); Protein, Total 6.3 g/dL (6.4-8.2); Sodium Level 142 mmol/L (136-145)
[2018-03-10 09:13] LABS: Blood Morphology Comment NOT SEEN (NOT SEEN); Platelet Estimate INCR
[2018-03-10] MEDS: FLUOXETINE 20 MG CAP PO SCH (09:35)
[2018-03-10] MEDS: CYCLOBENZAPRINE 10 MG TAB PO SCH ×2 (09:35→14:47)
[2018-03-10] MEDS: VANCOMYCIN 1.5 GM in NA CHLORIDE 0.9% 500 ML IVPB SCH (09:36)
[2018-03-10 13:11] VITALS: BP 128/71; TEMP 98.7
--- NOTE | 2018-03-10 23:40 | PN ---
Date of Progress Note: 03/10/2018 Subjective: Status post I and D of left axillary area. Surgical site looks intact. Objective: Chest: Clear. Extremities: No swelling. Good peripheral pulses. Plan: Wet-to-dry dressing daily. Antibiotics per culture. Follow up in my office in 1 week. Call for appointment [phone]. KIANA/NATALY Voice ID: [id number] Report ID: [id number]
--- NOTE | 2018-03-11 00:40 | OP ---
Date of Procedure: 03/08/2018 Surgeon: Dexter Osorio MD Preoperative Diagnosis: Cellulitis and abscess of the left axilla. Postoperative Diagnosis: Complex abscess, left axillary area and chest. Procedure: Incision and drainage of complex left axillary chest wall abscess about 10 x 8 x 3 cm. Estimated Blood Loss: Less than 20 cc. Specimen: Pus. Findings: Multiloculated deep axillary complex abscess extending to the lateral side of the chest. Anesthesia: General plus local. Indications: This is the case of a female with multiple medical problems, comes to us with celluliti s of the axillary area and lateral chest region, tender, erythematosed, diagnosed with an abscess. Heriberto orta explained the benefits, alternatives, and risks of incision which include, but not limited to in fection, bleeding, damage to adjacent structures, anesthesia complication, recurrence, [place], and even d eath. She also understands this may not relieve the symptoms, she might need more than one surgical intervention. She understood, signed a consent. Description Of Procedure: The patient was brought to the operating room, placed in supine position. Anesthesia was done without complication. Axillary and lateral chest area were prepped and draped i n usual sterile fashion. Lidocaine 1% plain was injected for local anesthetic, followed by sharp inc ision of the skin. We noticed the patient has necrotic tissue. So, we have to proceed with debridem ent of subcutaneous necrotic tissue and that led us into a complex abscess with multiple loculations. They were explored open including to the area into the axillary area and also the upper chest later ally. All loculations were explored and opened. Cultures were obtained. The area was profusely irr igated. Hemostasis was obtained and the area was packed with wet-to-dry dressing. The patient kenyetta ated the procedure well. The patient was sent to recovery in stable condition. KIANA/NATALY Voice ID: [id number] Report ID: [id number]
--- NOTE | 2018-03-11 06:05 | DS ---
Date of Discharge: 03/10/2018 Consultants: Dr. Osorio with General Surgery. Procedures: On 03/08/2018, incision and drainage of left axilla abscess, multiloculated, complex. Admitting Diagnoses: 1.Left axilla abscess. 2.Diabetes mellitus type 2, insulin requiring with circulatory complications. 3.Essential hypertension. 4.Cellulitis. 5.Obesity, BMI of 37.4. 6.Hyperlipidemia. 7.Status post below-knee amputation. Discharge Diagnoses: 1.Cellulitis of the left axilla and upper extremity secondary to abscess, improving. 2.Left axilla abscess, status post incision and drainage, improving secondary to methicillin-resista nt Staphylococcus aureus. 3.Essential hypertension. 4.Diabetes mellitus type 2 with long-term use of insulin with hyperglycemia. 5.Status post right below-knee amputation. 6.Mixed hyperlipidemia. 7.Obesity, BMI of 37.4. Hospital Course: The patient is a 42-year-old female with diabetes, hypertension, bipolar disorder, BKA, not well controlled diabetes, who comes in with cellulitis and abscess of the left axilla. The patient was started on IV antibiotics. Cultures were obtained. The patient was taken to the OR by Mehnaz Osorio and the wound abscess cultures grew out MRSA. Blood cultures were negative to date. The patient's white count improved. She was feeling better. Clinically, she was not septic. The patie nt was then cleared for discharge from production support consultant's standpoint. Followup: Follow up with primary care physician in 2-3 days. Follow up with surgeon, Dr. Devon cotter 1 week for wound check. Return to ER for worsening condition. Diet: Diabetic diet. Activity: As tolerated. Discharge Instructions: Wound care instructions per surgeon. Medication: As per medication reconciliation list. Total time spent discharging the patient was 43 minutes. Physical Examination: General: Awake, alert, oriented, no acute distress. Morbidly obese female. CV: S1, S2. No murmurs. Respiratory: Moving air well bilaterally. Abdomen: Soft, nontender, nondistended. Positive bowel sounds. Extremities: No clubbing, cyanosis, or edema. Musculoskeletal: Right BKA. Skin: Left axilla bandaged. No drainage. No erythema. Neurologic: Nonfocal. SA/MODL Voice ID: [id number] Report ID: [id number]
== END 2018-03-10 15:58 | disposition home or self-care (01) | DRG 603 ==
LOC: ER 18:26 → ERHOLD 20:49 → 2ND 21:18
PROVIDERS: ADMIT Internal Medicine; ATTEND Family Medicine
PROC: 0X953ZX Drainage of Left Axilla, Percutaneous Approach, Diagnostic (ICD-10-PCS; 2018-03-07)
PROC: 0J960ZX Drainage of Chest Subcutaneous Tissue and Fascia, Open Approach, Diagnostic (ICD-10-PCS; 2018-03-08)
PROC: 0X950ZX Drainage of Left Axilla, Open Approach, Diagnostic (ICD-10-PCS; principal; 2018-03-08 11:00)
DX: L02.412 Cutaneous abscess of left axilla (principal); E11.59 Type 2 diabetes mellitus with other circulatory complications; I10 Essential (primary) hypertension; L03.112 Cellulitis of left axilla; E66.9 Obesity, unspecified; Z68.37 Body mass index [BMI] 37.0-37.9, adult; L03.114 Cellulitis of left upper limb; B95.62 Methicillin resistant Staphylococcus aureus infection as the cause of diseases classified elsewhere; E11.65 Type 2 diabetes mellitus with hyperglycemia; E78.2 Mixed hyperlipidemia; F17.200 Nicotine dependence, unspecified, uncomplicated; F31.9 Bipolar disorder, unspecified; Z79.4 Long term (current) use of insulin; Z89.511 Acquired absence of right leg below knee; Z88.6 Allergy status to analgesic agent; Z88.1 Allergy status to other antibiotic agents; Z88.5 Allergy status to narcotic agent; Z88.0 Allergy status to penicillin; Z88.8 Allergy status to other drugs, medicaments and biological substances; Z91.041 Radiographic dye allergy status; Z91.018 Allergy to other foods
CPT/HCPCS: 36415; 76882; 80048; 80053; 80076; 80202; 81003; 81015; 82962; 83036; 83605; 83735; 84132; 84145; 84703; 85025; 87040; 87070; 87075; 87077; 87086; 87088; 87186; 87205; 88304; 96361; 96365; 96375; 99285; J1650; J2175; J2250; J2405; J3010; J3475; J7030

== ENCOUNTER 2018-04-17 21:35 | Emergency (ER) | payer OTHER ==
[2018-04-17] MEDS ORDERED: FENTANYL CITR 100 MCG/2 ML ONE (22:23)
[2018-04-17] MEDS ORDERED: ONDANSETRON 4 MG/2 ML VIAL ONE (22:23)
[2018-04-17] MEDS ORDERED: NA CHLORIDE 0.9% 1,000 ML ONE (22:23)
[2018-04-17 22:30] LABS: Absolute Lymphocytes (CBC) 4.9 K/uL (0.7-4.9); Absolute Monocytes 1.1 K/uL (0.1-1.3); Absolute Neutrophil 11.9 K/uL (1.8-8.0); Basophils % 0.7 % (0-1.3); Eosinophils % 4.8 % (0-4.4); Hematocrit 37.5 % (36.0-45.0); MCH 29.3 pg (27.0-35.0); MCV 85.8 fL (80-100); MPV 7.3 fL (7.6-11.3); Monocytes % 5.7 % (3.3-12.3); RBC Red Blood Cell Count 4.37 M/uL (3.86-4.86)
[2018-04-17 23:04] LABS: ALT/SGPT 18 U/L (12-78); AST/SGOT 11 U/L (15-37); Albumin 3.2 g/dL (3.4-5.0); Alkaline Phosphatase 82 U/L (45-117); BUN Blood Urea Nitrogen 18 mg/dL (7-18); Bicarbonate 19 mmol/L (21-32); Bilirubin Direct < 0.1 mg/dL (0-0.2); Bilirubin Total 0.1 mg/dL (0.2-1.0); Glucose Level 199 mg/dL (74-106); Lipase 92 U/L (73-393); Potassium 3.9 mmol/L (3.5-5.1); Protein, Total 6.8 g/dL (6.4-8.2); Sodium Level 142 mmol/L (136-145)
[2018-04-18 00:08] LABS: Urine Blood NEGATIVE (NEG); Urine Glucose NEGATIVE (NEG); Urine Protein 1+ (NEG); Urine Specific Gravity >1.030 (1.005-1.030); Urine pH 5.5 (5.0-7.0)
[2018-04-18 01:42] LABS: Calcium Oxalate Crystals- Ur FEW (NONE SEEN); Urine Amorphous Sediment 1+ /HPF (NONE SEEN); Urine Bacteria <20 /HPF (<20); Urine Culture Reflex Order NOT NEEDED; Urine Mucus HEAVY /HPF (NONE SEEN); Urine RBC NONE SEEN /HPF (NONE SEEN)
--- NOTE | 2018-04-18 01:57 | ER ---
Nurse's Notes [facility] Name: Barb Cortez Age: 42 yrs Sex: Female : 1975 Arrival Date: 04/17/2018 Time: 21:38 Bed 13 Private MD: Diagnosis: Low back pain Presentation: 04/17 21:51 Presenting complaint: Patient states: she is having severe back pain radiating to her bb abdomen with difficulty urinating starting earlier today. Transition of care: patient was not received from another setting of care. Onset of symptoms was April 17, 2018. Risk Assessment: Do you want to hurt yourself or someone else? Patient reports no desire to harm self or others. Initial Sepsis Screen: Does the patient meet any 2 criteria? No. Patient's initial sepsis screen is negative. Does the patient have a suspected source of infection? No. Patient's initial sepsis screen is negative. Care prior to arrival: None. 21:51 Method Of Arrival: Wheelchair bb 21:51 Acuity: HARI 3 bb Historical: - Allergies: 21:54 Aspirin; bb 21:54 Benadryl; bb 21:54 Cipro; bb 21:54 Ibuprofen; bb 21:54 IVP DYE; bb 21:54 PENICILLINS; bb 21:54 tramadol; bb - Home Meds: 21:54 amitriptyline 100 mg Oral tab [Active]; Flexeril 10 mg Oral tab 3 times per day bb [Active]; Imitrex Oral for Migraine [Active]; Lantus Sub-Q [Active]; Lipitor 40 mg Oral tab [Active]; Lyrica Oral [Active]; metformin 1,000 mg Oral tab [Active]; Novolog Sub-Q [Active]; prazosin 1 mg Oral cap 1 cap nightly [Active]; Prozac 20 mg Oral cap 1 cap once daily [Active]; symbicort [Active]; - PMHx: 21:54 Bipolar disorder; Depression; Diabetes - IDDM; Hyperlipidemia; Hypertension; Migraines; bb Kidney stones; - PSHx: 21:54 ; right below the knee amputation; IUD placement; Lithotripsy; bb - Immunization history:: Adult Immunizations up to date. - Social history:: Smoking status: Patient uses tobacco products, smokes one-half pack cigarettes per day, Patient/guardian denies using alcohol, street drugs. - Ebola Screening: : No symptoms or risks identified at this time. Screenin:24 Abuse screen: Denies threats or abuse. Nutritional screening: No deficits noted. tl2 Tuberculosis screening: No symptoms or risk factors identified. Fall Risk IV access (20 points). Ambulatory Aid- Crutches/Cane/Walker (15 pts). Assessment: 22:22 General: Appears in no apparent distress. uncomfortable, Behavior is calm, cooperative, tl2 appropriate for age. Pain: Complains of pain in left mid back Pain radiates to abdomen Pain currently is 8 out of 10 on a pain scale. Neuro: Level of Consciousness is awake, alert, obeys commands, Oriented to person, place, time, situation. Cardiovascular: Denies chest pain. Respiratory: Airway is patent Respiratory effort is even, unlabored, Respiratory pattern is regular, symmetrical. GI: Reports anorexia, Patient currently denies diarrhea, nausea, vomiting. : Reports inability to void, urgency, urinary frequency. : Reports Pt reports similar symptoms as when she had a kidney stone in 2007. Derm: Skin is pink, warm \T\ dry. 04/18 00:45 Reassessment: Patient appears in no apparent distress at this time. Patient and/or tl2 family updated on plan of care and expected duration. Pain level reassessed. Patient is alert, oriented x 3, equal unlabored respirations, skin warm/dry/pink. awaiting CT results. 01:53 Reassessment: Patient appears in no apparent distress at this time. Patient and/or tl2 family updated on plan of care and expected duration. Pain level reassessed. Patient is alert, oriented x 3, equal unlabored respirations, skin warm/dry/pink. awaiting urine micro. 02:05 Reassessment: Patient appears in no apparent distress at this time. Patient and/or tl2 family updated on plan of care and expected duration. Pain level reassessed. Patient is alert, oriented x 3, equal unlabored respirations, skin warm/dry/pink. Pt and family verbalized understanding of discharge instructions, need for follow up and prescription usage. Vital Signs: 04/17 21:54 BP 106 / 72; Pulse 106; Resp 98 S; Temp 99(O); Pulse Ox 98% on R/A; Weight 81.65 kg bb (R); Height 4 ft. 9 in. (144.78 cm) (R); Pain 02/19; 04/18 00:44 BP 106 / 74; Pulse 76; Resp 18; Pulse Ox 98% on R/A; tl2 01:53 BP 112 / 71; Pulse 89; Resp 18; Pulse Ox 99% on R/A; tl2 04/17 21:54 Body Mass Index 38.95 (81.65 kg, 144.78 cm) bb ED Course: 04/17 21:38 Patient arrived in ED. do 21:44 Latonya Isbell, RN is Primary Nurse. tl2 21:52 Triage completed. bb 21:54 Arm band placed on Patient placed in an exam room, on a stretcher, on pulse oximetry. bb Family accompanied patient. 21:55 Crescencio Storey PA is PHCP. cp 21:55 Lamberto Knox MD is Attending Physician. cp 22:22 Inserted saline lock: 22 gauge in right forearm, using aseptic technique. Blood tl2 collected. placed by vijay Lancaster. 22:24 Patient has correct armband on for positive identification. Bed in low position. Call tl2 light in reach. Side rails up X 1. Adult w/ patient. 22:26 Radiology exam delayed due to test not completed at this time. jg6 22:59 Radiology exam delayed due to test not completed at this time. jg6 23:[address] via stretcher. kw1 23:27 CT Stone Protocol In Process Unspecified. EDMS 23:29 CT completed. Patient tolerated procedure well. Patient moved back from ID. kw1 04/18 02:05 No provider procedures requiring assistance completed. IV discontinued, intact, tl2 bleeding controlled, No redness/swelling at site. Pressure dressing applied. Administered Medications: 04/17 22:21 Drug: NS 0.9% 1000 ml Route: IV; Rate: 1 bolus; Site: right forearm; tl2 04/18 02:07 Follow up: IV Status: Completed infusion; IV Intake: 1000ml tl2 04/17 22:21 Drug: fentaNYL (PF) 25 mcg Route: IVP; Site: right forearm; tl2 23:00 Follow up: Response: No adverse reaction; Pain is decreased tl2 22:21 Drug: Zofran 4 mg Route: IVP; Site: right forearm; tl2 23:00 Follow up: Response: No adverse reaction; Nausea is decreased tl2 10 00:27 Drug: fentaNYL (PF) 25 mcg Route: IVP; Site: right forearm; tl2 01:00 Follow up: Response: No adverse reaction; Pain is decreased tl2 Intake: 02:07 IV: 1000ml; Total: 1000ml. tl2 Outcome: 01:57 Discharge ordered by . nidhi 02:05 Discharged to home via wheelchair, with family. tl2 02:05 Condition: stable 02:05 Discharge instructions given to patient, family, Instructed on discharge instructions, follow up and referral plans. medication usage, Demonstrated understanding of instructions, follow-up care, medications, Prescriptions given X 1. 02:08 Patient left the ED. tl2 Signatures: Dispatcher [employer] Felecia Green RN RN Crescencio Man PA PA cp Ogletree, Danielle do Knox, Taylor, RN RN tl2 Janey Reyes1 Corin Martinez [email or web address]
--- NOTE | 2018-04-18 01:58 | EDPHYS ---
Physician Documentation [facility] Name: Barb Cortez Age: 42 yrs Sex: Female : 1975 Arrival Date: 04/17/2018 Time: 21:38 Bed 13 Private MD: ED Physician Lamberto Knox HPI: 04/17 22:04 This 42 yrs old Female presents to ER via Wheelchair with complaints of Back cp Pain, Abdominal Pain, Urinary Problem. 22:04 The patient presents with pain that is acute, with no known mechanism of injury. The cp symptoms are located in the left mid back. 22:04 Onset: The symptoms/episode began/occurred today. cp 22:04 The pain radiates to the abdomen. Associated signs and symptoms: Pertinent positives: cp abdominal pain, difficulty urinating, Pertinent negatives: chest pain, fever, incontinence, numbness, vomiting, weakness. The problem was sustained from unknown cause. Severity of symptoms: in the emergency department the symptoms are unchanged, despite home interventions. Historical: - Allergies: 21:54 Aspirin; bb 21:54 Benadryl; bb 21:54 Cipro; bb 21:54 Ibuprofen; bb 21:54 IVP DYE; bb 21:54 PENICILLINS; bb 21:54 tramadol; bb - Home Meds: 21:54 amitriptyline 100 mg Oral tab [Active]; Flexeril 10 mg Oral tab 3 times per day bb [Active]; Imitrex Oral for Migraine [Active]; Lantus Sub-Q [Active]; Lipitor 40 mg Oral tab [Active]; Lyrica Oral [Active]; metformin 1,000 mg Oral tab [Active]; Novolog Sub-Q [Active]; prazosin 1 mg Oral cap 1 cap nightly [Active]; Prozac 20 mg Oral cap 1 cap once daily [Active]; symbicort [Active]; - PMHx: 21:54 Bipolar disorder; Depression; Diabetes - IDDM; Hyperlipidemia; Hypertension; Migraines; bb Kidney stones; - PSHx: 21:54 ; right below the knee amputation; IUD placement; Lithotripsy; bb - Immunization history:: Adult Immunizations up to date. - Social history:: Smoking status: Patient uses tobacco products, smokes one-half pack cigarettes per day, Patient/guardian denies using alcohol, street drugs. - Ebola Screening: : No symptoms or risks identified at this time. ROS: 22:10 Constitutional: Negative for body aches, chills, fever, poor PO intake. cp 22:10 Eyes: Negative for injury, pain, redness, and discharge. cp 22:10 ENT: Negative for drainage from ear(s), ear pain, sore throat, difficulty swallowing, difficulty handling secretions. 22:10 Cardiovascular: Negative for chest pain, edema, palpitations. 22:10 Respiratory: Negative for cough, shortness of breath, wheezing. 22:10 Abdomen/GI: Positive for abdominal pain, Negative for vomiting, diarrhea, constipation, black/tarry stool, rectal bleeding. 22:10 Back: Positive for flank pain, Negative for injury or acute deformity, decreased range of motion. 22:10 : Positive for difficulty urinating. 22:10 Skin: Negative for cellulitis, rash. 22:10 Neuro: Negative for altered mental status, headache, numbness, tingling, weakness. 22:10 All other systems are negative. Exam: 22:15 Constitutional: The patient appears in no acute distress, alert, awake, cp non-diaphoretic, non-toxic, well developed, well nourished, uncomfortable. 22:15 Head/Face: Normocephalic, atraumatic. cp 22:15 Eyes: Periorbital structures: appear normal, Conjunctiva: normal, no exudate, no injection, Sclera: no appreciated abnormality, Lids and lashes: appear normal, bilaterally. 22:15 ENT: External ear(s): are unremarkable, Nose: is normal, Mouth: Lips: moist, Oral mucosa: pink and intact, moist, Posterior pharynx: is normal, airway is patent, no erythema, no exudate. 22:15 Neck: ROM/movement: is normal, is supple, without pain, no range of motions limitations, no meningismus, no nuchal rigidity. 22:15 Chest/axilla: Inspection: normal, Palpation: is normal, no crepitus, no tenderness. 22:15 Cardiovascular: Rate: tachycardic, Rhythm: regular, Edema: is not appreciated, JVD: is not appreciated. 22:15 Respiratory: the patient does not display signs of respiratory distress, Respirations: normal, no use of accessory muscles, no retractions, no splinting, no tachypnea, labored breathing, is not present, Breath sounds: are clear throughout, no decreased breath sounds, no stridor, no wheezing. 22:15 Abdomen/GI: Inspection: abdomen appears normal, Bowel sounds: active, all quadrants, Palpation: soft, in all quadrants, mild abdominal tenderness, in the left mid back, rebound tenderness, is not appreciated, involuntary guarding, is not appreciated. 22:15 Back: pain, that is moderate, of the left mid back, ROM is painful, muscle spasm, is not present. 22:15 Musculoskeletal/extremity: right BKA noted. 22:15 Skin: cellulitis, is not appreciated, no rash present. 22:15 Neuro: Orientation: to person, place \T\ time. Mentation: lucid, able to follow commands, Motor: moves all fours, strength is normal. Vital Signs: 21:54 BP 106 / 72; Pulse 106; Resp 98 S; Temp 99(O); Pulse Ox 98% on R/A; Weight 81.65 kg bb (R); Height 4 ft. 9 in. (144.78 cm) (R); Pain 02/19; 04/18 00:44 BP 106 / 74; Pulse 76; Resp 18; Pulse Ox 98% on R/A; tl2 01:53 BP 112 / 71; Pulse 89; Resp 18; Pulse Ox 99% on R/A; tl2 04/17 21:54 Body Mass Index 38.95 (81.65 kg, 144.78 cm) bb MDM: 04/17 21:55 Patient medically screened. cp 23:00 Differential diagnosis: Cholelithiasis chronic back pain, Pyelonephritis Renal cp Infarction ruptured disc, Ureterolithiasis. 04/18 01:55 Data reviewed: vital signs, nurses notes, lab test result(s), radiologic studies, CT cp scan, VSS. CT negative for acute findings. Pain markedly improved, and as a result, I will discharge patient. 04/17 22:05 Order name: Basic Metabolic Panel; Complete Time: 23:28 cp 04/18 00:53 Interpretation: Normal except: CL 111; CO2 19; GLUC 199; GFR 54; CA 8.3. cp 04/17 22:05 Order name: CBC with Diff; Complete Time: 23:28 cp 04/17 23:28 Interpretation: Normal except: WBC 18.9; RDW 16.0; MPV 7.3; EOSINOPHIL % 4.8; NEUT A cp 11.9; EOSA 0.9. 04/17 22:05 Order name: Hepatic Function; Complete Time: 23:28 cp 04/17 23:28 Interpretation: Normal except: AST 11; BILIT 0.1; ALB 3.2; GLOB 3.6; A/G 0.9. cp 04/17 22:05 Order name: Lipase; Complete Time: 23:28 cp 04/17 22:06 Order name: Urine Microscopic Only; Complete Time: 01:47 cp 04/18 01:47 Interpretation: Normal except: SQEPI 5-10. cp 04/17 22:05 Order name: IV Saline Lock; Complete Time: 22:21 cp 04/17 22:06 Order name: CT Stone Protocol cp 04/17 23:57 Order name: Urine Dipstick--Ancillary (enter results); Complete Time: 00:24 cc 04/18 00:24 Interpretation: Normal except: UKET 1+; UPROT 1+. cp 04/17 23:57 Order name: Urine --Ancillary (enter results); Complete Time: 00:24 cc 04/17 22:05 Order name: Labs collected and sent; Complete Time: 22:21 cp 04/17 22:06 Order name: Urine Dipstick-Ancillary (obtain specimen); Complete Time: 23:53 cp 04/17 22:06 Order name: Urine Test (obtain specimen); Complete Time: 23:53 cp Administered Medications: 04/17 22:21 Drug: NS 0.9% 1000 ml Route: IV; Rate: 1 bolus; Site: right forearm; tl2 04/18 02:07 Follow up: IV Status: Completed infusion; IV Intake: 1000ml tl2 04/17 22:21 Drug: fentaNYL (PF) 25 mcg Route: IVP; Site: right forearm; tl2 23:00 Follow up: Response: No adverse reaction; Pain is decreased tl2 22:21 Drug: Zofran 4 mg Route: IVP; Site: right forearm; tl2 23:00 Follow up: Response: No adverse reaction; Nausea is decreased tl2 04/18 00:27 Drug: fentaNYL (PF) 25 mcg Route: IVP; Site: right forearm; tl2 01:00 Follow up: Response: No adverse reaction; Pain is decreased tl2 Disposition: 03:00 Co-signature as Attending Physician, Lamberto Knox MD. pkl Disposition: 04/18/18 01:57 Discharged to Home. Impression: Low back pain. - Condition is Stable. - Discharge Instructions: Back Pain, Adult, Back Exercises, [id number]. - Prescriptions for Tylenol- Codeine #3 300-30 mg Oral Tablet - take 2 tablets by ORAL route every 6 hours As needed; 20 tablet. - Medication Reconciliation Form, Thank You Letter, Antibiotic Education, Prescription Opioid Use form. - Follow up: Private Physician; When: 2 - 3 days; Reason: Recheck today's complaints. - Problem is new. - Symptoms have improved. Signatures: Dispatcher [employer] EDOH Lamberto Knox MD MD pkl Felecia Kay, RN RN Crescencio Man PA PA cp Knox, Taylor RN RN tl2 Corrections: (The following items were deleted from the chart) 04/17 22:28 22:06 Creatinine for Radiology+C.LAB.BRZ ordered. EDOH EDMS 23:28 23:28 Normal except: WBC 18.9; RDW 16.0; MPV 7.3; EOSINOPHIL % 4.8; NEUT A 11.9. cp cp 04/18 00:53 04/17 23:28 Normal except: CL 111; CO2 19; GLUC 199; GFR 54. cp cp 04/18 02:08 01:57 04/18/2018 01:57 Discharged to Home. Impression: Low back pain. Condition is tl2 Stable. Forms are Medication Reconciliation Form, Thank You Letter, Antibiotic Education, Prescription Opioid Use. Follow up: Private Physician; When: 2 - 3 days; Reason: Recheck today's complaints. Problem is new. Symptoms have improved. cp
[2018-04-18 02:21] VITALS: TEMP 99
[2018-04-18 02:24] VITALS: BP 112/71; O2SAT 99
--- NOTE | 2018-04-18 12:39 | RAD REPORT ---
EXAM DESCRIPTION: CT - Stone Protocol - 04/18/2018 6:43 am CLINICAL HISTORY: Flank pain. FLANK PAIN COMPARISON: Stone Protocol dated 06/02/2017 TECHNIQUE: Axial images were obtained without oral or IV contrast. Lack of contrast limits solid org an and vascular assessment. The [id number] spans the entirety of the system partially obscuring uppermost abdomen and lung bases. Coronal reformatted images were obtained and reviewed. All CT scans are performed using dose optimization technique as appropriate and may include automated exposure control or mA/KV adjustment according to patient size. FINDINGS: The lower lung stark are clear. Imaged portions of the liver and spleen show no suspicious findings on non-contrast imaging. The panc reas and adrenal glands are normal. No pathologic lymphadenopathy in the abdomen or pelvis. The right kidney is absent. Left kidney demonstrates no stone or hydronephrosis. No bowel obstruction, free air, free fluid or abscess. Normal appendix noted.Right-sided protrusion o f the flank without hernia. Prominent stool in the colon. IUD is noted. No fracture or subluxation. IMPRESSION: No acute finding is evident. Prominent fecal retention in the colon.
== END 2018-04-18 02:08 | disposition home or self-care (01) ==
LOC: ER 21:35
DX: M54.5 Low back pain (principal); F17.210 Nicotine dependence, cigarettes, uncomplicated; I10 Essential (primary) hypertension; E11.9 Type 2 diabetes mellitus without complications; F31.9 Bipolar disorder, unspecified; Z79.4 Long term (current) use of insulin; Z88.0 Allergy status to penicillin; Z88.1 Allergy status to other antibiotic agents; Z88.5 Allergy status to narcotic agent; Z88.6 Allergy status to analgesic agent; Z91.041 Radiographic dye allergy status
CPT/HCPCS: 36415; 74176; 76377; 80048; 80076; 81003; 81015; 81025; 83690; 85025; 96361; 96374; 96375; 99284; J2405; J3010; J7030

== ENCOUNTER 2018-04-24 22:11 | Emergency (ER) | payer OTHER ==
[2018-04-24] MEDS ORDERED: HYDROCODONE/APAP 5/325 MG TAB ONE (23:54)
--- NOTE | 2018-04-25 00:07 | ER ---
Nurse's Notes [facility] Name: Barb Cortez Age: 42 yrs Sex: Female : 1975 Arrival Date: 04/24/2018 Time: 22:13 Bed 20 Private MD: Diagnosis: Cellulitis of left axilla;Cellulitis of right axilla Presentation: 04/24 22:42 Presenting complaint: Patient states: "I have boils under my arms that are painful and lp1 I'm worried it's Staph"; patient states increased pain over last few days, loss of appetite, nausea. Transition of care: patient was not received from another setting of care. Onset of symptoms was April 24, 2018. Risk Assessment: Do you want to hurt yourself or someone else? Patient reports no desire to harm self or others. Care prior to arrival: None. 22:42 Method Of Arrival: Wheelchair lp1 22:42 Acuity: HARI 4 lp1 04/25 00:11 Initial Sepsis Screen: Does the patient meet any 2 criteria? No. Patient's initial lp1 sepsis screen is negative. Does the patient have a suspected source of infection? No. Patient's initial sepsis screen is negative. 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 LMP N/A - Post-menopause lp1 Historical: - Allergies: 04/24 22:46 Aspirin; lp1 22:46 Benadryl; lp1 22:46 Cipro; lp1 22:46 Ibuprofen; lp1 22:46 IVP DYE; lp1 22:46 PENICILLINS; lp1 22:46 tramadol; lp1 22:47 R BKA; lp1 - Home Meds: 22:46 amitriptyline 100 mg Oral tab [Active]; Flexeril 10 mg Oral tab 3 times per day lp1 [Active]; Imitrex Oral for Migraine [Active]; Lantus Sub-Q [Active]; Lipitor 40 mg Oral tab [Active]; Lyrica Oral [Active]; metformin 1,000 mg Oral tab [Active]; Novolog Sub-Q [Active]; prazosin 1 mg Oral cap 1 cap nightly [Active]; Prozac 20 mg Oral cap 1 cap once daily [Active]; symbicort [Active]; - PMHx: 22:46 Bipolar disorder; Depression; Diabetes - IDDM; Hyperlipidemia; Hypertension; Kidney lp1 stones; Migraines; - PSHx: 22:46 ; R kidney removal; lp1 - Immunization history:: Adult Immunizations up to date. - Social history:: Smoking status: Patient uses tobacco products, smokes one-half pack cigarettes per day. - Ebola Screening: : No symptoms or risks identified at this time. Screenin:49 Abuse screen: Denies threats or abuse. Denies injuries from another. Nutritional lp1 screening: No deficits noted. Tuberculosis screening: No symptoms or risk factors identified. Fall Risk None identified. Assessment: 22:47 General: Appears in no apparent distress. Behavior is appropriate for age. Pain: lp1 Complains of pain in right axilla, left axilla Pain currently is 9 out of 10 on a pain scale. Neuro: Level of Consciousness is awake, alert, obeys commands, Oriented to person, place, time, situation, Reports headache. Cardiovascular: Patient's skin is warm and dry. Respiratory: Respiratory effort is even, unlabored. GI: No signs and/or symptoms were reported involving the gastrointestinal system. : No signs and/or symptoms were reported regarding the genitourinary system. EENT: No signs and/or symptoms were reported regarding the EENT system. Derm: Abscess located on right axilla and left axilla is dime sized, is red, is raised. Musculoskeletal: Amputation of right leg, BKA. Vital Signs: 22:44 BP 81 / 60; Pulse 100; Resp 18; Temp 99.1(O); Pulse Ox 99% on R/A; Weight 79.38 kg; lp1 Height 4 ft. 9 in. (144.78 cm); Pain 03/22; 04/25 00:10 BP 128 / 80; Pulse 86; Resp 18; Pulse Ox 100% on R/A; lp1 04/24 22:44 Body Mass Index 37.87 (79.38 kg, 144.78 cm) lp1 ED Course: 04/24 22:13 Patient arrived in ED. am2 22:22 Georges Mendoza NP is PHCP. pm1 22:23 Warner Lazo MD is Attending Physician. pm1 22:42 Carmen Garcia RN is Primary Nurse. lp1 22:44 Triage completed. lp1 22:44 Arm band placed on left wrist. lp1 22:49 Patient has correct armband on for positive identification. lp1 04/25 00:11 Georges Mendoza NP at bedside to perform needle aspiration of abscess. Patient did not lp1 have IV access during this emergency room visit. Administered Medications: 04/24 23:50 Drug: [place] 5 mg-325 mg 1 tabs Route: PO; cc3 04/25 00:29 Follow up: Response: Pain is decreased lp1 Outcome: 00:06 Discharge ordered by MD. pm1 00:29 Discharged to home via wheelchair, with family. lp1 00:29 Condition: good 00:29 Discharge instructions given to patient, Instructed on discharge instructions, follow up and referral plans. medication usage, wound care, Demonstrated understanding of instructions, follow-up care, medications, wound care, Prescriptions given X 2. 00:30 Patient left the ED. lp1 Signatures: Carmen Garcia RN RN lp1 Georges Mendoza NP CNC LATHE MACHINIST pm1 Beatris Peoples am2 Christianne Campos cc3
--- NOTE | 2018-04-25 00:07 | EDPHYS ---
Physician Documentation [facility] Name: Barb Cortez Age: 42 yrs Sex: Female : 1975 Arrival Date: 04/24/2018 Time: 22:13 Bed 20 Private MD: ED Physician Warner Lazo HPI: 04/24 23:50 This 42 yrs old Female presents to ER via Wheelchair with complaints of Boil. pm1 23:50 the patient presents with a swollen area of the right axilla and left axilla. pm1 Description: The affected area is small, raised. Onset: The symptoms/episode began/occurred yesterday. Possible cause(s): unknown. Associated signs and symptoms: Pertinent negatives: discharge, drainage, fever. Modifying factors: the symptoms are alleviated by nothing, the symptoms are aggravated by touching. Severity of symptoms: in the emergency department the symptoms are unchanged. The patient has not experienced similar symptoms in the past. The patient has not recently seen a physician. 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 LMP N/A - Post-menopause lp1 Historical: - Allergies: 04/24 22:46 Aspirin; lp1 22:46 Benadryl; lp1 22:46 Cipro; lp1 22:46 Ibuprofen; lp1 22:46 IVP DYE; lp1 22:46 PENICILLINS; lp1 22:46 tramadol; lp1 22:47 R BKA; lp1 - Home Meds: 22:46 amitriptyline 100 mg Oral tab [Active]; Flexeril 10 mg Oral tab 3 times per day lp1 [Active]; Imitrex Oral for Migraine [Active]; Lantus Sub-Q [Active]; Lipitor 40 mg Oral tab [Active]; Lyrica Oral [Active]; metformin 1,000 mg Oral tab [Active]; Novolog Sub-Q [Active]; prazosin 1 mg Oral cap 1 cap nightly [Active]; Prozac 20 mg Oral cap 1 cap once daily [Active]; symbicort [Active]; - PMHx: 22:46 Bipolar disorder; Depression; Diabetes - IDDM; Hyperlipidemia; Hypertension; Kidney lp1 stones; Migraines; - PSHx: 22:46 ; R kidney removal; lp1 - Immunization history:: Adult Immunizations up to date. - Social history:: Smoking status: Patient uses tobacco products, smokes one-half pack cigarettes per day. - Ebola Screening: : No symptoms or risks identified at this time. ROS: 23:50 Constitutional: Negative for fever, chills, and weight loss, Eyes: Negative for injury, pm1 pain, redness, and discharge, ENT: Negative for injury, pain, and discharge, Neck: Negative for injury, pain, and swelling, Cardiovascular: Negative for chest pain, palpitations, and edema, Respiratory: Negative for shortness of breath, cough, wheezing, and pleuritic chest pain, Abdomen/GI: Negative for abdominal pain, nausea, vomiting, diarrhea, and constipation, Back: Negative for injury and pain. 23:50 MS/Extremity: Negative for injury and deformity. 23:50 Neuro: Negative for headache, weakness, numbness, tingling, and seizure. 23:50 Skin: Positive for swelling, of the right axilla and left axilla. Exam: 23:50 Constitutional: This is a well developed, well nourished patient who is awake, alert, pm1 and in no acute distress. Head/Face: Normocephalic, atraumatic. Eyes: Pupils equal round and reactive to light, extra-ocular motions intact. Lids and lashes normal. Conjunctiva and sclera are non-icteric and not injected. Cornea within normal limits. Periorbital areas with no swelling, redness, or edema. ENT: Nares patent. No nasal discharge, no septal abnormalities noted. Tympanic membranes are normal and external auditory canals are clear. Oropharynx with no redness, swelling, or masses, exudates, or evidence of obstruction, uvula midline. Mucous membranes moist. Neck: Trachea midline, no thyromegaly or masses palpated, and no cervical lymphadenopathy. Supple, full range of motion without nuchal rigidity, or vertebral point tenderness. No Meningismus. Chest/axilla: Normal chest wall appearance and motion. Nontender with no deformity. No lesions are appreciated. Cardiovascular: Regular rate and rhythm with a normal S1 and S2. No gallops, murmurs, or rubs. Normal PMI, no JVD. No pulse deficits. Respiratory: Lungs have equal breath sounds bilaterally, clear to auscultation and percussion. No rales, rhonchi or wheezes noted. No increased work of breathing, no retractions or nasal flaring. Abdomen/GI: Soft, non-tender, with normal bowel sounds. No distension or tympany. No guarding or rebound. No evidence of tenderness throughout. Back: No spinal tenderness. No costovertebral tenderness. Full range of motion. 23:50 Skin: Appearance: normal except for affected area, small sized phlegmon 1 cm circular area in right and left axilla without any warmth, surrounding redness, discharge. Vital Signs: 22:44 BP 81 / 60; Pulse 100; Resp 18; Temp 99.1(O); Pulse Ox 99% on R/A; Weight 79.38 kg; lp1 Height 4 ft. 9 in. (144.78 cm); Pain 03/22; 04/25 00:10 BP 128 / 80; Pulse 86; Resp 18; Pulse Ox 100% on R/A; lp1 04/24 22:44 Body Mass Index 37.87 (79.38 kg, 144.78 cm) lp1 MDM: 04/24 22:57 Patient medically screened. pm1 04/25 00:00 ED course: phlegmons to bilateral axilla needle aspirated. Negative for purulent pm1 drainage. 00:05 Data reviewed: vital signs. Data interpreted: Pulse oximetry: on room air is 99 %. pm1 Interpretation: normal. Counseling: I had a detailed discussion with the patient and/or guardian regarding: the historical points, exam findings, and any diagnostic results supporting the discharge/admit diagnosis, the need for outpatient follow up, a general surgeon, to return to the emergency department if symptoms worsen or persist or if there are any questions or concerns that arise at home. Administered Medications: 04/24 23:50 Drug: [place] 5 mg-325 mg 1 tabs Route: PO; cc3 04/25 00:29 Follow up: Response: Pain is decreased lp1 Disposition: 00:59 Co-signature as Attending Physician, Warner Lazo MD. Disposition: 04/25/18 00:06 Discharged to Home. Impression: Cellulitis of left axilla, Cellulitis of right axilla. - Condition is Stable. - Discharge Instructions: Cellulitis, Adult. - Prescriptions for Bactrim DS 800- 160 mg Oral Tablet - take 1 tablet by ORAL route every 12 hours for 10 days; 20 tablet. Tylenol- Codeine #3 300-30 mg Oral Tablet - take 2 tablets by ORAL route every 6 hours As needed; 20 tablet. - Medication Reconciliation Form, Thank You Letter, Antibiotic Education, Prescription Opioid Use form. - Follow up: Emergency Department; When: As needed; Reason: Worsening of condition. Follow up: Private Physician; When: 2 - 3 days; Reason: Recheck today's complaints, Continuance of care, Re-evaluation by your physician. - Problem is new. - Symptoms have improved. Signatures: Carmen Garcia RN RN lp1 Georges Mendoza, METALLURGICAL ANALYST METALLURGICAL ANALYST pm1 Warner Lazo MD MD Christianne Campos cc3 Corrections: (The following items were deleted from the chart) 00:30 00:06 04/25/2018 00:06 Discharged to Home. Impression: Cellulitis of left axilla; lp1 Cellulitis of right axilla. Condition is Stable. Forms are Medication Reconciliation Form, Thank You Letter, Antibiotic Education, Prescription Opioid Use. Follow up: Emergency Department; When: As needed; Reason: Worsening of condition. Follow up: Private Physician; When: 2 - 3 days; Reason: Recheck today's complaints, Continuance of care, Re-evaluation by your physician. Problem is new. Symptoms have improved. pm1
[2018-04-25 00:33] VITALS: TEMP 99.1
[2018-04-25 00:34] VITALS: BP 128/80; O2SAT 100
== END 2018-04-25 00:30 | disposition home or self-care (01) ==
LOC: ER 22:11
DX: L03.112 Cellulitis of left axilla (principal); L03.111 Cellulitis of right axilla; I10 Essential (primary) hypertension; E11.9 Type 2 diabetes mellitus without complications; F17.210 Nicotine dependence, cigarettes, uncomplicated; F32.9 Major depressive disorder, single episode, unspecified; F31.9 Bipolar disorder, unspecified; Z79.4 Long term (current) use of insulin; Z88.0 Allergy status to penicillin; Z88.5 Allergy status to narcotic agent; Z88.6 Allergy status to analgesic agent; Z88.8 Allergy status to other drugs, medicaments and biological substances; Z91.041 Radiographic dye allergy status
CPT/HCPCS: 99283

== ENCOUNTER 2018-07-01 23:16 | Observation (INO) | payer OTHER ==
[2018-07-02] MEDS ORDERED: FAMOTIDINE 20 MG/2 ML VIAL IV ONE (00:26)
[2018-07-02] MEDS ORDERED: NA CHLORIDE 0.9% 1,000 ML ONE (00:26)
[2018-07-02 00:50] LABS: Protime INR 1.15
[2018-07-02 00:51] LABS: Absolute Lymphocytes (CBC) 2.5 K/uL (0.7-4.9); Absolute Monocytes 1.1 K/uL (0.1-1.3); Absolute Neutrophil 9.2 K/uL (1.8-8.0); Basophils % 0.6 % (0-1.3); Hematocrit 42.8 % (36.0-45.0); Lymphocytes % 19.3 % (15.3-44.8); MPV 8.1 fL (7.6-11.3); Monocytes % 8.4 % (3.3-12.3); RBC Red Blood Cell Count 5.06 M/uL (3.86-4.86)
[2018-07-02 01:09] LABS: ALT/SGPT 20 U/L (12-78); AST/SGOT 8 U/L (15-37); Albumin 3.2 g/dL (3.4-5.0); Alkaline Phosphatase 105 U/L (45-117); BUN Blood Urea Nitrogen 18 mg/dL (7-18); Bicarbonate 26 mmol/L (21-32); Bilirubin Direct 0.3 mg/dL (0-0.2); Bilirubin Total 1.1 mg/dL (0.2-1.0); Glucose Level 369 mg/dL (74-106); Lipase 49 U/L (73-393); Magnesium 1.5 mg/dL (1.8-2.4); NT PRO-BNP 46 pg/mL (<125); Potassium 4.2 mmol/L (3.5-5.1); Protein, Total 7.7 g/dL (6.4-8.2); Sodium Level 130 mmol/L (136-145); Troponin (Emerg Dept Use Only) < 0.02 ng/mL (0.0-0.045)
--- NOTE | 2018-07-02 01:23 | EDPHYS ---
Physician Documentation [facility] Name: Barb Cortez Age: 42 yrs Sex: Female : 1975 Arrival Date: 07/01/2018 Time: 23:20 Bed 6 Private MD: ED Physician Crescencio Barnes HPI: 07/01 23:43 This 42 yrs old Female presents to ER via Wheelchair with complaints of BODY gera ACHE, Vomiting/Diarrhea, Decreased Appetite, Stiff Neck, Back Pain. 23:43 The patient presents to the emergency department with nausea, vomiting, that is gera intermittent. Onset: The symptoms/episode began/occurred 2 day(s) ago. Possible causes: unknown. The symptoms are aggravated by nothing. The symptoms are alleviated by nothing. Associated signs and symptoms: Pertinent positives: anorexia, nausea. Severity of symptoms: At their worst the symptoms were mild moderate in the emergency department the symptoms are unchanged. The patient has not experienced similar symptoms in the past. 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 LMP N/A - control method ca1 Historical: - Allergies: 23:39 Aspirin; lp1 23:39 PENICILLINS; lp1 23:39 IVP DYE; lp1 23:39 Cipro; lp1 23:39 Benadryl; lp1 23:39 Ibuprofen; lp1 23:39 tramadol; lp1 - Home Meds: 23:39 Humalog 100 unit/mL Sub-Q soln 10 unit three times a day [Active]; Lantus Sub-Q 40 unit lp1 daily [Active]; Glucophage 500 mg Oral tab 2 tabs 2 times per day [Active]; amitriptyline 100 mg Oral tab [Active]; Imitrex Oral for Migraine [Active]; Prozac 20 mg Oral cap 1 cap once daily [Active]; - PMHx: 23:39 Bipolar disorder; Depression; Diabetes - IDDM; Hyperlipidemia; Hypertension; Kidney lp1 stones; Migraines; - PSHx: 23:39 R BKA; L kidney removal; ; lp1 - Immunization history:: Adult Immunizations up to date. - Social history:: Smoking status: Patient uses tobacco products, smokes one-half pack cigarettes per day. - Ebola Screening: : No symptoms or risks identified at this time. - Family history:: not pertinent. ROS: 23:43 Constitutional: Negative for fever, chills, and weight loss, Eyes: Negative for injury, gera pain, redness, and discharge, ENT: Negative for injury, pain, and discharge, Neck: Negative for injury, pain, and swelling, Cardiovascular: Negative for chest pain, palpitations, and edema, Respiratory: Negative for shortness of breath, cough, wheezing, and pleuritic chest pain, Back: Negative for injury and pain, : Negative for injury, bleeding, discharge, and swelling, MS/Extremity: Negative for injury and deformity, Skin: Negative for injury, rash, and discoloration, Neuro: Negative for headache, weakness, numbness, tingling, and seizure, Psych: Negative for depression, anxiety, suicide ideation, homicidal ideation, and hallucinations, Allergy/Immunology: Negative for hives, rash, and allergies, Endocrine: Negative for neck swelling, polydipsia, polyuria, polyphagia, and marked weight changes, Hematologic/Lymphatic: Negative for swollen nodes, abnormal bleeding, and unusual bruising. 23:43 Abdomen/GI: Positive for nausea and vomiting, anorexia. Exam: 23:43 Constitutional: This is a well developed, well nourished patient who is awake, alert, gera and in no acute distress. Head/Face: Normocephalic, atraumatic. Eyes: Pupils equal round and reactive to light, extra-ocular motions intact. Lids and lashes normal. Conjunctiva and sclera are non-icteric and not injected. Cornea within normal limits. Periorbital areas with no swelling, redness, or edema. ENT: Nares patent. No nasal discharge, no septal abnormalities noted. Tympanic membranes are normal and external auditory canals are clear. Oropharynx with no redness, swelling, or masses, exudates, or evidence of obstruction, uvula midline. Mucous membranes moist. Neck: Trachea midline, no thyromegaly or masses palpated, and no cervical lymphadenopathy. Supple, full range of motion without nuchal rigidity, or vertebral point tenderness. No Meningismus. Chest/axilla: Normal chest wall appearance and motion. Nontender with no deformity. No lesions are appreciated. Cardiovascular: Regular rate and rhythm with a normal S1 and S2. No gallops, murmurs, or rubs. Normal PMI, no JVD. No pulse deficits. Respiratory: Lungs have equal breath sounds bilaterally, clear to auscultation and percussion. No rales, rhonchi or wheezes noted. No increased work of breathing, no retractions or nasal flaring. Abdomen/GI: Soft, non-tender, with normal bowel sounds. No distension or tympany. No guarding or rebound. No evidence of tenderness throughout. Back: No spinal tenderness. No costovertebral tenderness. Full range of motion. Pelvic Exam: Normal external genitalia. Speculum exam with closed cervical os, no discharge or bleeding noted. Bimanual exam with normal adnexa, no adnexal or cervical motion tenderness. Normal uterus. Female : Normal external genitalia. Skin: Warm, dry with normal turgor. Normal color with no rashes, no lesions, and no evidence of cellulitis. MS/ Extremity: Pulses equal, no cyanosis. Neurovascular intact. Full, normal range of motion. Vital Signs: 23:33 BP 128 / 81; Pulse 105; Resp 18; Temp 99(O); Pulse Ox 100% on R/A; Weight 70.31 kg; lp1 Height 4 ft. 11 in. (149.86 cm); Pain 10/10; 07/02 00:00 BP 109 / 88; Pulse 95; Resp 20; Pulse Ox 99% on R/A; lp1 01:15 BP 147 / 84; Pulse 105; Resp 22; Pulse Ox 100% on R/A; lp1 02:00 BP 134 / 84; Pulse 94; Resp 13; Pulse Ox 96% on R/A; lp1 07/01 23:33 Body Mass Index 31.31 (70.31 kg, 149.86 cm) lp1 MDM: 07/01 23:34 Patient medically screened. [facility] 07/02 01:24 Data reviewed: vital signs, nurses notes, EMS record, lab test result(s), EKG, [facility] radiologic studies, plain films. 07/01 23:43 Order name: Basic Metabolic Panel; Complete Time: 01: [facility] 07/01 23:43 Order name: CBC with Diff; Complete Time: 01: [facility] 07/01 23:43 Order name: LFT's; Complete Time: 01: [facility] 07/01 23:43 Order name: Magnesium; Complete Time: 01: [facility] 07/01 23:43 Order name: NT PRO-BNP; Complete Time: 01: [facility] 07/01 23:43 Order name: PT-INR; Complete Time: 01:13 [facility] 07/01 23:43 Order name: Troponin (emerg Dept Use Only); Complete Time: 01:13 [facility] 07/01 23:43 Order name: Lipase; Complete Time: 01:13 [facility] 07/01 23:43 Order name: Type And Screen; Complete Time: 01:50 [facility] 07/01 23:43 Order name: Urine Culture [facility] 07/01 23:43 Order name: Blood Culture Adult (2) [facility] 07/01 23:43 Order name: Procalcitonin; Complete Time: 01:50 [facility] 07/01 23:43 Order name: Influenza Screen (a \T\ B); Complete Time: 01:13 [facility] 07/02 01:52 Order name: Glucose, Ancillary Testing [facility] 07/01 23:43 Order name: XRAY Chest (1 view) [facility] 07/01 23:43 Order name: EKG; Complete Time: 23:44 [facility] 07/01 23:43 Order name: Cardiac monitoring; Complete Time: 00:13 [facility] 07/01 23:43 Order name: EKG - Nurse/Tech; Complete Time: 00:13 [facility] 07/01 23:43 Order name: IV Saline Lock; Complete Time: 00:42 [facility] 07/01 23:43 Order name: Labs collected and sent; Complete Time: 00:42 [facility] 07/01 23:43 Order name: O2 Per Protocol; Complete Time: 00:13 [facility] 07/01 23:43 Order name: O2 Sat Monitoring; Complete Time: 00:14 [facility] Administered Medications: 00:30 Drug: Pepcid 20 mg Route: IVP; Site: left antecubital; lp1 01:25 Follow up: Response: No adverse reaction lp1 00:30 Drug: NS 0.9% 500 ml Route: IV; Rate: bolus; Site: left antecubital; lp1 01:00 Follow up: IV Status: Completed infusion; IV Intake: 500ml lp1 01:00 Drug: NS 0.9% 1000 ml Route: IV; Rate: 125 ml/hr; Site: left antecubital; lp1 02:23 Follow up: IV Status: Infusion continued ca1 01:20 Drug: Magnesium Sulfate 1 grams Route: IVPB; Infused Over: 1 hrs; Site: left ca1 antecubital; 02:28 Follow up: Response: No adverse reaction; IV Status: Infusion continued upon admission ca1 01:30 Drug: Rocephin - (cefTRIAXone) 1 grams Route: IVPB; Infused Over: 30 mins; Site: left ca1 antecubital; 02:22 Follow up: Response: No adverse reaction; IV Status: Completed infusion ca1 01:51 CANCELLED (Duplicate Order): Insulin Regular Human 10 units IVP once gera 01:52 CANCELLED (Duplicate Order): LanTUS 40 units Sub-Q once gera 01:56 Drug: Insulin Regular Human 6 units {Co-Signature: tl2 (Latonya Isbell RN).} Route: IVP; ca1 Site: left antecubital; 02:00 Follow up: Response: No adverse reaction; Given prior to transfer to floor lp1 Disposition: 07/02/18 01:22 Hospitalization ordered by Araseli Bowie for Observation. Preliminary diagnosis are Vomiting, Type 1 diabetes mellitus, Elevated white blood cell count, Unspecified kidney failure, Hypomagnesemia. - Bed requested for Telemetry/MedSurg (observation). - Status is Observation. ca1 - Condition is Fair. - Problem is new. - Symptoms have improved. UTI on Admission? No Signatures: Dispatcher [employer] EDMS Crescencio Barnes MD MD cha Pena, Laura, RN RN lp1 Kaylyn Martinez RN RN Meli Carr RN RN ca1 Latonya Isbell RN tl2 Corrections: (The following items were deleted from the chart) 01:51 01:14 Insulin Regular Human 10 units IVP once ordered. [facility] 01:51 01:22 Hospitalization Ordered by Araseli Bowie MD for Observation. Preliminary cg diagnosis is Vomiting; Type 1 diabetes mellitus; Elevated white blood cell count; Unspecified kidney failure; Hypomagnesemia. Bed requested for Telemetry/MedSurg (observation). Status is Observation. Condition is Fair. Problem is new. Symptoms have improved. UTI on Admission? No. grea 01:52 01:52 LanTUS 40 units Sub-Q once ordered. [facility] gera 02:28 01:51 07/02/2018 01:22 Hospitalization Ordered by Araseli Bowie MD for Observation. ca1 Preliminary diagnosis is Vomiting; Type 1 diabetes mellitus; Elevated white blood cell count; Unspecified kidney failure; Hypomagnesemia. Bed requested for Telemetry/MedSurg (observation). Status is Observation. Condition is Fair. Problem is new. Symptoms have improved. UTI on Admission? No. cg
--- NOTE | 2018-07-02 01:23 | ER ---
Nurse's Notes [facility] Name: Barb Cortez Age: 42 yrs Sex: Female : 1975 Arrival Date: 07/01/2018 Time: 23:20 Bed 6 Private MD: Diagnosis: Vomiting;Type 1 diabetes mellitus;Elevated white blood cell count;Unspecified kidney failure;Hypomagnesemia Presentation: 07/01 23:31 Presenting complaint: Patient states: Vomiting, diarrhea, body aches x 2 weeks; States lp1 feeling chills at home. Transition of care: patient was not received from another setting of care. Onset of symptoms was July 01, 2018. Risk Assessment: Do you want to hurt yourself or someone else? Patient reports no desire to harm self or others. Initial Sepsis Screen: Does the patient meet any 2 criteria? No. Patient's initial sepsis screen is negative. Does the patient have a suspected source of infection? No. Patient's initial sepsis screen is negative. Care prior to arrival: None. 23:31 Method Of Arrival: Wheelchair lp1 23:31 Acuity: HARI 3 lp1 RN CARE TRANSITION: 23:40 LMP N/A - control method ca1 Historical: - Allergies: 23:39 Aspirin; lp1 23:39 PENICILLINS; lp1 23:39 IVP DYE; lp1 23:39 Cipro; lp1 23:39 Benadryl; lp1 23:39 Ibuprofen; lp1 23:39 tramadol; lp1 - Home Meds: 23:39 Humalog 100 unit/mL Sub-Q soln 10 unit three times a day [Active]; Lantus Sub-Q 40 unit lp1 daily [Active]; Glucophage 500 mg Oral tab 2 tabs 2 times per day [Active]; amitriptyline 100 mg Oral tab [Active]; Imitrex Oral for Migraine [Active]; Prozac 20 mg Oral cap 1 cap once daily [Active]; - PMHx: 23:39 Bipolar disorder; Depression; Diabetes - IDDM; Hyperlipidemia; Hypertension; Kidney lp1 stones; Migraines; - PSHx: 23:39 R BKA; L kidney removal; ; lp1 - Immunization history:: Adult Immunizations up to date. - Social history:: Smoking status: Patient uses tobacco products, smokes one-half pack cigarettes per day. - Ebola Screening: : No symptoms or risks identified at this time. - Family history:: not pertinent. Screenin:41 Abuse screen: Denies threats or abuse. Denies injuries from another. Nutritional lp1 screening: No deficits noted. Tuberculosis screening: No symptoms or risk factors identified. Fall Risk Total [place] Fall Scale indicates High Risk Score (45 or more points). Fall prevention measures have been instituted. Side Rails Up X 2 As available patient and family educated on Fall Prevention Program and Strategies. Assessment: 23:39 General: Appears in no apparent distress. Behavior is cooperative, appropriate for age. lp1 Pain: Complains of pain in back of neck and posterior chest Pain currently is 10 out of 10 on a pain scale. Quality of pain is described as aching. Neuro: Level of Consciousness is awake, alert, obeys commands, Oriented to person, place, time, situation. Cardiovascular: Patient's skin is warm and dry. Respiratory: Respiratory effort is even, unlabored. GI: Abdomen is non-distended, Reports diarrhea, nausea, vomiting. : No signs and/or symptoms were reported regarding the genitourinary system. EENT: No signs and/or symptoms were reported regarding the EENT system. Derm: Skin is pink, warm \T\ dry. Musculoskeletal: Amputation of right lower leg. 07/02 01:00 Reassessment: Patient appears in no apparent distress at this time. No changes from lp1 previously documented assessment. Patient and/or family updated on plan of care and expected duration. Pain level reassessed. 02:20 Reassessment: Patient appears in no apparent distress at this time. No changes from ca1 previously documented assessment. Patient and/or family updated on plan of care and expected duration. Pain level reassessed. Patient is alert, oriented x 3, equal unlabored respirations, skin warm/dry/pink. Report given to Magda Wolfe RN. . Vital Signs: 07/01 23:33 BP 128 / 81; Pulse 105; Resp 18; Temp 99(O); Pulse Ox 100% on R/A; Weight 70.31 kg; lp1 Height 4 ft. 11 in. (149.86 cm); Pain 10/10; 07/02 00:00 BP 109 / 88; Pulse 95; Resp 20; Pulse Ox 99% on R/A; lp1 01:15 BP 147 / 84; Pulse 105; Resp 22; Pulse Ox 100% on R/A; lp1 02:00 BP 134 / 84; Pulse 94; Resp 13; Pulse Ox 96% on R/A; lp1 12 23:33 Body Mass Index 31.31 (70.31 kg, 149.86 cm) lp1 ED Course: 07/01 23:20 Patient arrived in ED. es 23:28 Crescencio Barnes MD is Attending Physician. gera 23:33 Triage completed. lp1 23:34 Arm band placed on left wrist. lp1 23:41 Patient has correct armband on for positive identification. Pulse ox on. NIBP on. lp1 23:54 X-ray completed. Portable x-ray completed in exam room. Patient tolerated procedure kw well. 23:55 XRAY Chest (1 view) In Process Unspecified. EDMS 07/02 00:14 Carmen Garcia, RN is Primary Nurse. lp1 00:19 Missed attempt(s): 22 gauge in right antecubital area. Inserted saline lock: 22 gauge lp1 in left antecubital area, using aseptic technique. Blood collected. 00:19 First set of blood cultures drawn. lp1 01:20 Araseli Bowie MD is Hospitalizing Provider. [facility] 02:06 No provider procedures requiring assistance completed. Patient admitted, IV remains in lp1 place. Administered Medications: 00:30 Drug: Pepcid 20 mg Route: IVP; Site: left antecubital; lp1 01:25 Follow up: Response: No adverse reaction lp1 00:30 Drug: NS 0.9% 500 ml Route: IV; Rate: bolus; Site: left antecubital; lp1 01:00 Follow up: IV Status: Completed infusion; IV Intake: 500ml lp1 01:00 Drug: NS 0.9% 1000 ml Route: IV; Rate: 125 ml/hr; Site: left antecubital; lp1 02:23 Follow up: IV Status: Infusion continued ca1 01:20 Drug: Magnesium Sulfate 1 grams Route: IVPB; Infused Over: 1 hrs; Site: left ca1 antecubital; 02:28 Follow up: Response: No adverse reaction; IV Status: Infusion continued upon admission ca1 01:30 Drug: Rocephin - (cefTRIAXone) 1 grams Route: IVPB; Infused Over: 30 mins; Site: left ca1 antecubital; 02:22 Follow up: Response: No adverse reaction; IV Status: Completed infusion ca1 01:51 CANCELLED (Duplicate Order): Insulin Regular Human 10 units IVP once gera 01:52 CANCELLED (Duplicate Order): LanTUS 40 units Sub-Q once gera 01:56 Drug: Insulin Regular Human 6 units {Co-Signature: tl2 (Latonya Isbell RN).} Route: IVP; ca1 Site: left antecubital; 02:00 Follow up: Response: No adverse reaction; Given prior to transfer to floor lp1 Intake: 01:00 IV: 500ml; Total: 500ml. lp1 Outcome: 01:22 Decision to Hospitalize by Provider. [facility] 02:07 Condition: stable lp1 02:07 Instructed on the need for admit. 02:26 Admitted to Med/surg accompanied by tech, via stretcher, room 230, with chart, Report ca1 called to Magda Wolfe RN 02:28 Patient left the ED. ca1 Signatures: Dispatcher [employer] Crescencio Arana MD MD cha Salyer, Edna es Whitley, Kimberlee kw Pena, Laura, RN RN lp1 Meli Carr RN RN ca1 Latonya Isbell RN tl2
[2018-07-02] MEDS ORDERED: ONDANSETRON 4 MG/2 ML VIAL IV PRN (01:39)
[2018-07-02] MEDS ORDERED: ACETAMINOPHEN 500 MG TAB PO PRN (01:39)
[2018-07-02] MEDS ORDERED: INSULIN -REGULAR HUMAN 50 UNIT/0.5 ML ML ONE (01:40)
[2018-07-02] MEDS ORDERED: MAGNESIUM SULFATE 1 gm IVPB 1 GM/100 ML BAG IV ONE (01:40)
[2018-07-02] MEDS ORDERED: CEFTRIAXONE/SWI 1gm 1 GM/10 ML SYR ONE (01:40)
[2018-07-02] MEDS: NA CHLORIDE 0.9% 1,000 ML IV SCH ×3 (02:00→12:33)
[2018-07-02 03:12] VITALS: BMI 31.3
[2018-07-02] MEDS: MORPHINE 2 MG/ML SYR IV PRN ×3 (03:25→21:45)
[2018-07-02 05:26] LABS: Urine Appearance CLEAR; Urine Bilirubin NEGATIVE (NEG); Urine Blood TRACE (NEG); Urine Color YELLOW; Urine Glucose 3+ (NEG); Urine Protein TRACE (NEG); Urine pH 5.5 (5.0-7.0)
[2018-07-02 05:36] LABS: Urine Microscopic Reflex ORDER UMIC
[2018-07-02 05:41] LABS: Bilirubin Total 0.7 mg/dL (0.2-1.0); Magnesium 1.8 mg/dL (1.8-2.4); Potassium 4.3 mmol/L (3.5-5.1)
[2018-07-02 05:42] LABS: Urine Bacteria >50 /HPF (<20); Urine Culture Reflex Order NOT NEEDED; Urine RBC <5 /HPF (NONE SEEN)
[2018-07-02 06:07] LABS: Absolute Lymphocytes (CBC) 2.8 K/uL (0.7-4.9); Absolute Monocytes 1.3 K/uL (0.1-1.3); Absolute Neutrophil 7.5 K/uL (1.8-8.0); Basophils % 0.5 % (0-1.3); Eosinophils % 1.3 % (0-4.4); Hematocrit 38.3 % (36.0-45.0); Lymphocytes % 23.9 % (15.3-44.8); MPV 7.6 fL (7.6-11.3); RBC Red Blood Cell Count 4.57 M/uL (3.86-4.86)
--- NOTE | 2018-07-02 08:02 | RAD REPORT ---
EXAM DESCRIPTION: [facility] Single View07/01/2018 11:56 pm CLINICAL HISTORY: Abdominal pain COMPARISON: none FINDINGS: The lungs appear clear of acute infiltrate. The heart is normal size IMPRESSION: No acute abnormalities displayed
[2018-07-02] MEDS ORDERED: SUMATRIPTAN SUCCI 50 MG TAB PO PRN (08:33)
--- NOTE | 2018-07-02 08:45 | P.HP ---
Certification for Inpatient Patient admitted to: Observation With expected LOS: <2 Midnights Patient will require the following post-hospital care: None Practitioner: I am a practitioner with admitting privileges, knowledge of patient current condition, hospital course, and medical plan of care. Services: Services provided to patient in accordance with Admission requirements found in Title 42 Section 412.3 of the Code of Federal Regulations Patient History Date of Service: 07/02/18 Reason for admission: Intractable nausea and vomiting History of Present Illness: Patient is a 42-year-old female came into the hospital with abdominal pain. She had pain and in the epigastric region and had intractable nausea and vomiting. She denies having diarrhea. She has dysuria as well as her workup in the emergency room revealed urinary tract infection with dehydration peer she will be admitted to the hospital for IV hydration and IV antibiotics. Allergies aspirin Allergy (Verified 03/08/18 05:36) Itching/Hives/Rash ciprofloxacin [From Cipro] Allergy (Verified 03/08/18 05:36) Hives/Rash diphenhydramine [From Benadryl] Allergy (Verified 03/08/18 05:36) Unknown mushroom Allergy (Verified 03/08/18 05:36) Hives/Rash Penicillins Allergy (Verified 03/08/18 05:37) Shortness of breath tramadol Allergy (Verified 03/08/18 05:36) Unknown IVP Dye Adverse Reaction (Uncoded 06/03/17 01:23) Shortness of breath mushrooms Adverse Reaction (Uncoded 06/03/17 04:47) Anaphylaxis Home Medications: Amitriptyline [Elavil*] 100 mg PO DAILY 07/02/18 Atorvastatin Calcium 40 mg PO DAILY 07/02/18 Fluoxetine HCl 60 mg PO BEDTIME 07/02/18 Fluoxetine HCl [Prozac] 20 mg PO DAILY 07/02/18 Insulin Glargine Human [Lantus*] 40 units PO BEDTIME 07/02/18 Insulin Lispro [Humalog] 10 units SQ TID 07/02/18 Metformin HCl [Glucophage] 500 mg PO BID 07/02/18 Prazosin HCl 1 mg PO BEDTIME 07/02/18 Sumatriptan [Imitrex*] 1 tab PO DAILY PRN 07/02/18 - Past Medical/Surgical History Has patient received pneumonia vaccine in the past: Yes Diabetic: Yes -: IDDM -: Hypertension -: severe depression -: PTSD -: high cholesterol -: BKA right leg -: right kidney removal -: x 2 - Family History Father Medical History: Heart disease, Hypertension, Diabetes Mother Medical History: Hypertension, Diabetes, Cancer - Social History Smoking Status: Current some day smoker Alcohol use: No CD- Drugs: No Caffeine use: Yes Place of Residence: Home Review of Systems 10-point ROS is otherwise unremarkable Physical Examination - Vital Signs Temperature: 98.3 F Blood Pressure: 125/76 Pulse: 98 Respirations: 18 Pulse Ox (%): 100 - Physical Exam General: Alert, In no apparent distress, Oriented x3 HEENT: Atraumatic, PERRLA, Mucous membr. moist/pink, EOMI, Sclerae nonicteric Neck: Supple, 2+ carotid pulse no bruit, No LAD, Without JVD or thyroid abnormality Respiratory: Clear to auscultation bilaterally, Normal air movement Cardiovascular: Regular rate/rhythm, Normal S1 S2, No murmurs Gastrointestinal: Normal bowel sounds, Soft and benign, Non-distended, No tenderness Musculoskeletal: No clubbing, No swelling, No tenderness Integumentary: No rashes Neurological: Normal gait, Normal speech, Normal strength at 5/5 x4 extr, Normal tone, Sensation intact, Cranial nerves 3-12 intact, Normal affect Lymphatics: No axilla or inguinal lymphadenopathy - Studies Laboratory Data (last 24 hrs) 07/02/18 00:19: PT 13.6 H, INR 1.15 07/02/18 00:19: WBC 13.0 H, Hgb 14.4, Hct 42.8, Plt Count 366 07/02/18 00:19: Sodium 130 L, Potassium 4.2, BUN 18, Creatinine 1.20, Glucose 369 H, Magnesium 1.5 L D, Total Bilirubin 1.1 H, AST 8 L, ALT 20, Alkaline Phosphatase 105, Lipase 49 L Microbiology Data (last 24 hrs): 07/02/18 00:10 Nasopharnyx Influenza Type A Antigen Screen - Final 07/02/18 00:10 Nasopharnyx Influenza Type B Antigen Screen - Final Assessment & Plan - Problems (Diagnosis) (1) Intractable nausea and vomiting Current Visit: Yes Status: Acute (2) Abdominal pain Current Visit: Yes Status: Acute (3) UTI (urinary tract infection) Current Visit: Yes Status: Acute Qualifiers: Urinary tract infection type: acute cystitis (4) Diabetes mellitus Onset Date: 03/08/18 Current Visit: No Status: Acute Qualifiers: Diabetes mellitus type: type 2 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 Continue with IV hydration 2. Continue with IV antibiotics 3. Continue with antiemetics 4. Clear liquids 5. Serial H&H, and we will monitor CBC, BMP, LFTs and lipase along with electrolytes. 6. GI and DVT prophylaxis Discharge Plan: Home - Advance Directives Does patient have a Living Will: No Does patient have a Durable POA for Healthcare: Yes - Code Status/Comfort Care Code Status Assessed: Yes Code Status: Full Code Critical Care: No Time Spent Managing PTS Care (In Minutes): 50
[2018-07-02] MEDS ORDERED: INSULIN 70/30 100 UNITS/ML SQ ONE (08:53)
[2018-07-02] MEDS ORDERED: GLUCAGON 1 MG/VIAL IM PRN ×2 (08:53→10:24)
[2018-07-02] MEDS ORDERED: D50W 25 GM/50 ML SYRINGE IV PRN ×2 (08:53→10:24)
[2018-07-02] MEDS: CEFTRIAXONE/SWI 1gm 1 GM/10 ML SYR IV SCH (10:28)
[2018-07-02] MEDS: INSULIN -REGULAR HUMAN 50 UNIT/0.5 ML ML SQ SCH ×3 (12:24→21:00)
[2018-07-02] MEDS: METFORMIN HCL 500 MG TAB PO SCH (17:47)
--- NOTE | 2018-07-02 18:09 | EKG ---
Test Date: 2018-07-02 Test Time: 00:07:02 Estate Planning Counselor: CARLOS ENRIQUE MEASUREMENT RESULTS: Intervals: Rate: 99 DE: 130 QRSD: 76 QT: 354 QTc: 454 [place]: P: 50 DE: 130 QRS: 50 T: 73 INTERPRETIVE STATEMENTS: Normal sinus rhythm Normal ECG Compared to ECG 01/27/2018 21:10:31 Sinus tachycardia no longer present Electronically Signed On 07-02-18 18:05:35 ATTENDANCE CLERK by Umberto Perez
[2018-07-02] MEDS: AMITRIPTYLINE 50 MG TAB PO SCH (21:39)
[2018-07-02] MEDS: ATORVASTATIN 40 MG TAB PO SCH (21:39)
[2018-07-02] MEDS: FLUOXETINE 20 MG CAP PO SCH (21:39)
[2018-07-02] MEDS: INSULIN GLARGINE 100 UNITS/ML SQ SCH (21:40)
[2018-07-02] MEDS: PRAZOSIN HCL 1 MG CAP PO SCH (21:44)
[2018-07-03] MEDS: NA CHLORIDE 0.9% 1,000 ML IV SCH ×3 (00:14→18:00)
[2018-07-03 05:23] LABS: Absolute Lymphocytes (CBC) 3.2 K/uL (0.7-4.9); Absolute Monocytes 0.9 K/uL (0.1-1.3); Absolute Neutrophil 3.9 K/uL (1.8-8.0); Basophils % 0.8 % (0-1.3); Hematocrit 35.4 % (36.0-45.0); Lymphocytes % 37.8 % (15.3-44.8); MPV 7.9 fL (7.6-11.3); Monocytes % 10.5 % (3.3-12.3); RBC Red Blood Cell Count 4.23 M/uL (3.86-4.86)
[2018-07-03 05:46] LABS: ALT/SGPT 14 U/L (12-78); AST/SGOT < 3 U/L (15-37); Albumin 2.5 g/dL (3.4-5.0); Alkaline Phosphatase 81 U/L (45-117); BUN Blood Urea Nitrogen 9 mg/dL (7-18); Bicarbonate 27 mmol/L (21-32); Bilirubin Total 0.4 mg/dL (0.2-1.0); Glucose Level 146 mg/dL (74-106); Magnesium 1.6 mg/dL (1.8-2.4); Phosphorus 2.9 mg/dL (2.5-4.9); Potassium 3.8 mmol/L (3.5-5.1); Protein, Total 6.3 g/dL (6.4-8.2); Sodium Level 139 mmol/L (136-145)
[2018-07-03] MEDS: INSULIN -REGULAR HUMAN 50 UNIT/0.5 ML ML SQ SCH ×4 (07:30→21:12)
[2018-07-03] MEDS: METFORMIN HCL 500 MG TAB PO SCH ×2 (09:48→16:48)
[2018-07-03] MEDS: CEFTRIAXONE/SWI 1gm 1 GM/10 ML SYR IV SCH (09:48)
--- NOTE | 2018-07-03 17:56 | P.PN ---
Subjective Date of Service: 07/03/18 Chief Complaint: Intractable nausea and vomiting Subjective: No C/O voiced, Improving Review of Systems 10-point ROS is otherwise unremarkable Physical Examination - Vital Signs Temperature: 97.0 F Blood Pressure: 119/69 Pulse: 82 Respirations: 16 Pulse Ox (%): 97 - Physical Exam General: Alert, In no apparent distress, Oriented x3 HEENT: Atraumatic, PERRLA, EOMI Neck: Supple, JVD not distended Respiratory: Clear to auscultation bilaterally, Normal air movement Cardiovascular: Regular rate/rhythm, Normal S1 S2 Gastrointestinal: Normal bowel sounds, No tenderness Musculoskeletal: No tenderness Integumentary: No rashes Neurological: Normal speech, Normal tone, Normal affect Lymphatics: No axilla or inguinal lymphadenopathy Assessment And Plan - Plan - Problems (Diagnosis) (1) Intractable nausea and vomiting Current Visit: Yes Status: Acute (2) Abdominal pain Current Visit: Yes Status: Acute (3) UTI (urinary tract infection) Current Visit: Yes Status: Acute Qualifiers: Urinary tract infection type: acute cystitis (4) Diabetes mellitus Onset Date: 03/08/18 Current Visit: No Status: Acute Qualifiers: Diabetes mellitus type: type 2 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 Continue with IV hydration 2. Continue with IV antibiotics 3. Continue with antiemetics 4. Clear liquids, advanced to GI soft DVT prophylaxis: Lovenox GI prophylaxis: Protonix Diet: GI soft Disposition: Pending symptomatic improvement. Likely discharge home in 24 hr Discharge Plan: Home Plan to discharge in: 24 Hours Physician Review: Patient Assessed, Agree with Above Assessment and Plan Time Spent Managing PTS Care (In Minutes): 35
[2018-07-03] MEDS: PRAZOSIN HCL 1 MG CAP PO SCH (21:00)
[2018-07-03] MEDS: ATORVASTATIN 40 MG TAB PO SCH (21:10)
[2018-07-03] MEDS: FLUOXETINE 20 MG CAP PO SCH (21:10)
[2018-07-03] MEDS: AMITRIPTYLINE 50 MG TAB PO SCH (21:10)
[2018-07-03] MEDS: INSULIN GLARGINE 100 UNITS/ML SQ SCH (21:11)
[2018-07-04] MEDS: MORPHINE 2 MG/ML SYR IV PRN
[2018-07-04] MEDS: NA CHLORIDE 0.9% 1,000 ML IV SCH (05:06)
[2018-07-04] MEDS: INSULIN -REGULAR HUMAN 50 UNIT/0.5 ML ML SQ SCH ×2 (07:30→11:30)
[2018-07-04 09:12] VITALS: BP 127/87; TEMP 96.9
[2018-07-04] MEDS: CEFTRIAXONE/SWI 1gm 1 GM/10 ML SYR IV SCH (09:15)
[2018-07-04] MEDS: METFORMIN HCL 500 MG TAB PO SCH (09:15)
[2018-07-04 10:37] VITALS: O2SAT 96
--- NOTE | 2018-07-04 11:30 | P.SSS ---
Patient History Date of Service: 07/04/18 Reason for admission: Intractable nausea and vomiting History of Present Illness: Patient is a 42-year-old female came into the hospital with abdominal pain. She had pain and in the epigastric region and had intractable nausea and vomiting. She denies having diarrhea. She has dysuria as well as her workup in the emergency room revealed urinary tract infection with dehydration peer she will be admitted to the hospital for IV hydration and IV antibiotics. Allergies aspirin Allergy (Verified 03/08/18 05:36) Itching/Hives/Rash ciprofloxacin [From Cipro] Allergy (Verified 03/08/18 05:36) Hives/Rash diphenhydramine [From Benadryl] Allergy (Verified 03/08/18 05:36) Unknown mushroom Allergy (Verified 03/08/18 05:36) Hives/Rash Penicillins Allergy (Verified 03/08/18 05:37) Shortness of breath tramadol Allergy (Verified 03/08/18 05:36) Unknown IVP Dye Adverse Reaction (Uncoded 06/03/17 01:23) Shortness of breath mushrooms Adverse Reaction (Uncoded 06/03/17 04:47) Anaphylaxis Home Medications: Amitriptyline [Elavil*] 100 mg PO DAILY 07/02/18 Atorvastatin Calcium 40 mg PO DAILY 07/02/18 Fluoxetine HCl 60 mg PO BEDTIME 07/02/18 Fluoxetine HCl [Prozac] 20 mg PO DAILY 07/02/18 Insulin Glargine Human [Lantus*] 40 units PO BEDTIME 07/02/18 Insulin Lispro [Humalog] 10 units SQ TID 07/02/18 Metformin HCl [Glucophage] 500 mg PO BID 07/02/18 Prazosin HCl 1 mg PO BEDTIME 07/02/18 Sumatriptan [Imitrex*] 1 tab PO DAILY PRN 07/02/18 Cephalexin [Keflex] 500 mg PO Q12H #6 cap 07/04/18 - Past Medical/Surgical History Has patient received pneumonia vaccine in the past: Yes Diabetic: Yes -: IDDM -: Hypertension -: severe depression -: PTSD -: high cholesterol -: BKA right leg -: right kidney removal -: x 2 - Family History Father -: Heart disease, Hypertension, Diabetes Mother -: Hypertension, Diabetes, Cancer - Social History Smoking Status: Current some day smoker Alcohol use: No CD- Drugs: No Caffeine use: Yes Place of Residence: Home Review of Systems 10-point ROS is otherwise unremarkable Physical Examination - Vital Signs Temperature: 96.9 F Blood Pressure: 127/87 Pulse: 82 Respirations: 82 Pulse Ox (%): 96 - Physical Exam General: Alert, In no apparent distress, Oriented x3 HEENT: Atraumatic, PERRLA, Mucous membr. moist/pink, EOMI, Sclerae nonicteric Neck: Supple, 2+ carotid pulse no bruit, No LAD, Without JVD or thyroid abnormality Respiratory: Clear to auscultation bilaterally, Normal air movement Cardiovascular: Regular rate/rhythm, Normal S1 S2 Gastrointestinal: Normal bowel sounds, No tenderness Musculoskeletal: No tenderness Integumentary: No rashes Neurological: Normal gait, Normal speech, Normal strength at 5/5 x4 extr, Normal tone, Normal affect Lymphatics: No axilla or inguinal lymphadenopathy Treatment Summary: Patient was admitted for observation in the hospital. She received IV fluids, IV antibiotics and antiemetics as needed. She was started on clear liquid diet , advance as tolerated to GI soft. Her labs remained stable and a her vitals also remained stable throughout the stay. Her urine analysis with evidence of urinary tract infection, the urine cultures negative for any growth. She was discharged with Keflex to complete a 5 day course. - Disposition Condition: GOOD Patient Discharge Instructions: Please follow up with the primary care physician 1 week. Please return to the ER for worsening symptoms. Diet: ADA Activity: Ad rodney Physician Review: Patient Assessed, Agree with Above Assessment and Plan Time Spent Managing Pts Care (In Minutes): 55
== END 2018-07-04 12:18 | disposition home or self-care (01) ==
LOC: ER 23:16 → ERHOLD 07-02 01:22 → 2ND 07-02 02:22
PROVIDERS: ADMIT Hospitalist; ATTEND Hospitalist
DX: N39.0 Urinary tract infection, site not specified (principal); E11.9 Type 2 diabetes mellitus without complications; I10 Essential (primary) hypertension; F32.9 Major depressive disorder, single episode, unspecified; Z89.511 Acquired absence of right leg below knee; Z88.6 Allergy status to analgesic agent; Z88.0 Allergy status to penicillin; Z79.4 Long term (current) use of insulin
CPT/HCPCS: 36415; 71045; 80048; 80053; 80076; 81003; 81015; 82962; 83036; 83690; 83735; 83880; 84100; 84145; 84484; 85025; 85610; 86850; 86900; 86901; 87040; 87086; 87088; 87804; 93005; 96361; 96365; 96368; 96375; 99285; G0378; J0696; J2270; J3475; J7030

== ENCOUNTER 2018-07-18 16:49 | Emergency (ER) | payer OTHER ==
[2018-07-18 17:59] LABS: Absolute Monocytes 0.5 K/uL (0.1-1.3); Absolute Neutrophil 9.4 K/uL (1.8-8.0); Basophils % 0.9 % (0-1.3); Eosinophils % 2.3 % (0-4.4); Hematocrit 45.1 % (36.0-45.0); Lymphocytes % 22.5 % (15.3-44.8); MPV 7.7 fL (7.6-11.3); RBC Red Blood Cell Count 5.39 M/uL (3.86-4.86)
[2018-07-18 18:06] LABS: Protime INR 1.03
[2018-07-18 18:20] LABS: ALT/SGPT 28 U/L (12-78); AST/SGOT 16 U/L (15-37); Albumin 3.8 g/dL (3.4-5.0); Alkaline Phosphatase 110 U/L (45-117); BUN Blood Urea Nitrogen 10 mg/dL (7-18); Bicarbonate 26 mmol/L (21-32); Bilirubin Direct < 0.1 mg/dL (0-0.2); Bilirubin Total 0.3 mg/dL (0.2-1.0); Glucose Level 309 mg/dL (74-106); Potassium 4.1 mmol/L (3.5-5.1); Sodium Level 137 mmol/L (136-145)
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
[2018-07-18 19:19] LABS: Barbiturates NEGATIVE (NEGATIVE); Benzodiazepines NEGATIVE (NEGATIVE); Cocaine NEGATIVE (NEGATIVE); METHAMPHETAM NEGATIVE (NEGATIVE); Methadone NEGATIVE (NEGATIVE); Opiates NEGATIVE (NEGATIVE); Phencyclidine NEGATIVE (NEGATIVE); THC Cannibis NEGATIVE (NEGATIVE)
[2018-07-18] MEDS ORDERED: NA CHLORIDE 0.9% 1,000 ML ONE (19:46)
[2018-07-18 20:24] LABS: Urine Blood NEGATIVE (NEG); Urine Glucose 2+ (NEG); Urine Protein 1+ (NEG); Urine Specific Gravity 1.015 (1.005-1.030)
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
[2018-07-18] MEDS ORDERED: HYDROCODONE/APAP 5/325 MG TAB ONE (20:47)
[2018-07-18 22:15] VITALS: BP 124/77; TEMP 98.8; O2SAT 99
--- NOTE | 2018-07-19 06:26 | EKG ---
Test Date: 2018-07-18 Test Time: 17:42:31 Finance Professor: OSIEL MEASUREMENT RESULTS: Intervals: Rate: 96 DC: 136 QRSD: 76 QT: 364 QTc: 459 [place]: P: 62 DC: 136 QRS: 52 T: 71 INTERPRETIVE STATEMENTS: Normal sinus rhythm Normal ECG Compared to ECG 07/02/2018 00:07:02 No significant changes Electronically Signed On 07-19-18 06:18:43 SUPERVISOR DYER by Jas Yeager
== END 2018-07-18 21:59 | disposition home or self-care (01) ==
LOC: ER 16:49
DX: F43.0 Acute stress reaction (principal); S00.90XA Unspecified superficial injury of unspecified part of head, initial encounter; Y04.2XXA Assault by strike against or bumped into by another person, initial encounter; E11.65 Type 2 diabetes mellitus with hyperglycemia; F31.9 Bipolar disorder, unspecified; E78.5 Hyperlipidemia, unspecified; I10 Essential (primary) hypertension
CPT/HCPCS: 36415; 70450; 72125; 80048; 80076; 80307; 80320; 80329; 81003; 81025; 85025; 85610; 85730; 93005; 99285; J7030

== ENCOUNTER 2018-07-31 11:50 | Emergency (ER) | payer OTHER ==
[2018-07-31 12:23] LABS: Absolute Lymphocytes (CBC) 3.4 K/uL (0.7-4.9); Absolute Monocytes 0.6 K/uL (0.1-1.3); Absolute Neutrophil 5.3 K/uL (1.8-8.0); Eosinophils % 3.7 % (0-4.4); Hematocrit 45.7 % (36.0-45.0); Lymphocytes % 34.8 % (15.3-44.8); MPV 7.9 fL (7.6-11.3); Monocytes % 5.8 % (3.3-12.3); RBC Red Blood Cell Count 5.51 M/uL (3.86-4.86)
--- NOTE | 2018-07-31 12:34 | RAD REPORT ---
EXAM DESCRIPTION: CT - Head C Spine Mpr Wo Con - 07/31/2018 12:14 pm CLINICAL HISTORY: Head and neck injury status post fall. Head and neck pain COMPARISON: July 18, 2018 TECHNIQUE: Computed axial tomography of the head and cervical spine was obtained. Sagittal and coronal reconstruction was performed. All CT scans are performed using dose optimization technique as appropriate and may include automated exposure control or mA/KV adjustment according to patient size. FINDINGS: An intracranial bleed is not seen. The ventricles are normal in caliber. An extra-axial fl uid collection is not noted. Opacification of the right mastoid is unchanged A cervical fracture is not visualized. No dislocation is noted. IMPRESSION: No acute intracranial abnormality is seen. A cervical fracture is not visualized. If the patient continues to have symptoms to suggest intracra nial /spinal cord pathology then MRI would be recommended
[2018-07-31 12:44] LABS: Potassium 4.4 mmol/L (3.5-5.1)
[2018-07-31] MEDS ORDERED: NA CHLORIDE 0.9% 1,000 ML ONE (12:52)
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
--- NOTE | 2018-07-31 14:11 | ER ---
Nurse's Notes [facility] Name: Barb Cortez Age: 42 yrs Sex: Female : 1975 Arrival Date: 07/31/2018 Time: 11:52 Bed 13 Private MD: Diagnosis: Hyperglycemia, unspecified;Superficial injury of head;Urinary tract infection, site not specified Presentation: 07/31 11:53 Presenting complaint: EMS states: PT FELL IN WHEELCHAIR. COMPLAINS OF RIGHT REAR HEAD ls4 PAIN. Transition of care: HOMELESS ALF. Mechanism of Injury: The problem was sustained at TRANSIT STATION . Onset of symptoms was July 31, 2018. Risk Assessment: Do you want to hurt yourself or someone else? Patient reports no desire to harm self or others. Initial Sepsis Screen: Does the patient meet any 2 criteria? No. Patient's initial sepsis screen is negative. Does the patient have a suspected source of infection? No. Patient's initial sepsis screen is negative. Care prior to arrival: None. 11:53 Method Of Arrival: EMS: [facility] ls4 11:53 Acuity: HARI 3 ls4 12:16 Mechanism of Injury: resulted from a fall, less than 3 feet, wheel chair slipped . Note ls4 pt fingerstick read hi in field. Georges FRIEDMAN notified. chem 7 ordered. Triage Assessment: 12:19 General: Appears in no apparent distress. Behavior is calm, cooperative. Pain: ls4 Complains of pain in right parietal area. Neuro: Level of Consciousness is awake, alert, obeys commands, Oriented to person, place, time, situation, Foundation Relations Manager are equal bilaterally Moves all extremities. Gait is steady, Speech is normal, Facial symmetry appears normal, Pupils are PERRLA, Intact Reports denies . Respiratory: No deficits noted. GI: No deficits noted. : No deficits noted. Derm: No deficits noted. Musculoskeletal: No deficits noted. CAUSTIC ROOM ATTENDANT: 12:21 2, LMP N/A - control method ls4 Historical: - PMHx: 12:16 Bipolar disorder; Depression; Diabetes - IDDM; Hyperlipidemia; Hypertension; Kidney ls4 stones; Migraines; - Immunization history:: Adult Immunizations unknown. - Social history:: Smoking status: Patient uses tobacco products, smokes one pack cigarettes per day. The patient lives in a nursing home. - Ebola Screening: : No symptoms or risks identified at this time. Screenin:15 Abuse screen: Denies threats or abuse. Denies injuries from another. Nutritional aj1 screening: No deficits noted. Tuberculosis screening: No symptoms or risk factors identified. 14:58 Fall Risk None identified. aj1 Assessment: 13:15 General: Appears in no apparent distress. comfortable, Behavior is calm, cooperative, aj1 appropriate for age. Pain: Complains of pain in right parietal area. Neuro: Level of Consciousness is awake, alert, obeys commands, Oriented to person, place, time, situation, Foundation Relations Manager are equal bilaterally Moves all extremities. Full function Speech is normal, Facial symmetry appears normal, Reports headache. Cardiovascular: Patient's skin is warm and dry. Respiratory: Airway is patent Respiratory effort is even, unlabored, Respiratory pattern is regular, symmetrical. GI: No signs and/or symptoms were reported involving the gastrointestinal system. : No signs and/or symptoms were reported regarding the genitourinary system. EENT: No signs and/or symptoms were reported regarding the EENT system. Derm: No signs and/or symptoms reported regarding the dermatologic system. Skin is pink, warm \T\ dry. normal. Musculoskeletal: Amputation of right BKA. 14:20 Reassessment: Patient appears in no apparent distress at this time. No changes from aj1 previously documented assessment. Patient and/or family updated on plan of care and expected duration. Pain level reassessed. Patient is alert, oriented x 3, equal unlabored respirations, skin warm/dry/pink. Vital Signs: 12:45 BP 145 / 84; Pulse 78; Resp 16; Temp 98.2; Pulse Ox 99% on R/A; Pain 3/10; ls4 14:58 BP 132 / 75; Pulse 75; Resp 18; Pulse Ox 97% on R/A; aj1 [place] Coma Score: 11:53 Eye Response: spontaneous(4). Verbal Response: oriented(5). Motor Response: obeys ls4 commands(6). Total: 15. 13:05 Eye Response: spontaneous(4). Verbal Response: oriented(5). Motor Response: obeys pm1 commands(6). Total: 15. ED Course: 11:52 Patient arrived in ED. ls4 11:54 Georges Mendoza NP is PHCP. pm1 11:54 Crescencio Barnes MD is Attending Physician. pm1 11:55 Triage completed. ls4 12:26 Arm band placed on right wrist. ls4 12:37 Nolvia Bass, RN is Primary Nurse. ls4 12:38 BMP Sent. ls4 12:38 CBC with Diff Sent. ls4 13:15 Patient has correct armband on for positive identification. Bed in low position. Call aj1 light in reach. Side rails up X 1. 13:15 No provider procedures requiring assistance completed. aj1 14:58 IV discontinued, intact, bleeding controlled, No redness/swelling at site. Pressure aj1 dressing applied. Administered Medications: 12:38 Drug: NS 0.9% 1000 ml Route: IV; Rate: 1000 ml; Site: right antecubital; ls4 14:06 Not Given (Physician Discretion): Insulin Regular Human 10 units IVP once aa5 14:55 Drug: [place] 5 mg-325 mg 1 tabs Route: PO; aj1 14:59 Follow up: Response: No adverse reaction aj1 14:57 Drug: Bactrim (160 mg-800 mg (DS) 1 tablet Route: PO; aj1 14:59 Follow up: Response: No adverse reaction aj1 Point of Care Testing: Blood Glucose: 14:06 Blood Glucose: 374 mg/dL; aa5 14:06 SEWER LINE REPAIRER notified of results. aa5 Ranges: Outcome: 14:10 Discharge ordered by . pm1 14:58 Discharged to home via wheelchair. aj1 14:58 Condition: good 14:58 Discharge instructions given to patient, Instructed on discharge instructions, follow up and referral plans. no drinking with medication, no driving heavy equipment, medication usage, Demonstrated understanding of instructions, follow-up care, medications, Prescriptions given X 2. 14:59 Patient left the ED. aj1 Signatures: Krista Breaux RN RN aj1 Eliana Atkins RN RN aa5 Georges Mendoza, SEWER LINE REPAIRER SEWER LINE REPAIRER pm1 Nolvia Bass, MARIA ALEJANDRA RN ls4 Corrections: (The following items were deleted from the chart) 14:06 14:03 Blood Glucose: Blood Glucose Pjjtnil=317 mg/dL. aa5 aa5
[2018-07-31 14:34] LABS: Urine Blood NEGATIVE (NEG); Urine Glucose 2+ (NEG); Urine Protein NEGATIVE (NEG); Urine Specific Gravity 1.015 (1.005-1.030)
[2018-07-31] MEDS ORDERED: HYDROCODONE/APAP 5/325 MG TAB ONE (14:56)
[2018-07-31] MEDS ORDERED: SMZ./TMP. 800/160 MG TABLET ONE (15:06)
[2018-07-31 15:11] LABS: Urine Bacteria 20-50 /HPF (<20); Urine RBC <5 /HPF (NONE SEEN)
[2018-07-31 15:12] LABS: Urine Culture Reflex Order NOT NEEDED; Urine Yeast FEW (NONE SEEN)
[2018-07-31 15:40] VITALS: TEMP 98.2
[2018-07-31 15:51] VITALS: BP 132/75; O2SAT 97
== END 2018-07-31 14:59 | disposition home or self-care (01) ==
LOC: ER 11:50
DX: S00.90XA Unspecified superficial injury of unspecified part of head, initial encounter (principal); N39.0 Urinary tract infection, site not specified; R73.9 Hyperglycemia, unspecified; W17.89XA Other fall from one level to another, initial encounter; Y93.9 Activity, unspecified; Y92.9 Unspecified place or not applicable; Z59.0 Homelessness
CPT/HCPCS: 36415; 70450; 72125; 80048; 81003; 81015; 81025; 82962; 85025; J7030

== ENCOUNTER 2018-08-03 21:15 | Emergency (ER) | payer OTHER ==
[2018-08-03] MEDS ORDERED: LIDOCAINE 1% W/EPI 1:100,000 MDV 50 ML VIAL ONE (22:05)
[2018-08-03] MEDS ORDERED: BUPIVACAINE 0.5% PF 10 ML VIAL ONE (22:05)
[2018-08-03] MEDS ORDERED: FENTANYL CITR 100 MCG/2 ML ONE (22:06)
[2018-08-03 22:17] LABS: Absolute Lymphocytes (CBC) 4.4 K/uL (0.7-4.9); Absolute Monocytes 0.7 K/uL (0.1-1.3); Absolute Neutrophil 5.7 K/uL (1.8-8.0); Eosinophils % 3.5 % (0-4.4); Hematocrit 41.6 % (36.0-45.0); Lymphocytes % 38.4 % (15.3-44.8); MPV 7.9 fL (7.6-11.3); Monocytes % 6.5 % (3.3-12.3); RBC Red Blood Cell Count 4.94 M/uL (3.86-4.86)
[2018-08-03 22:27] LABS: Urine Blood TRACE (NEG); Urine Glucose 2+ (NEG); Urine Protein NEGATIVE (NEG); Urine Specific Gravity <1.005 (1.005-1.030); Urine pH 6.5 (5.0-7.0)
[2018-08-03 22:45] LABS: Potassium 4.5 mmol/L (3.5-5.1)
[2018-08-03] MEDS ORDERED: NA CHLORIDE 0.9% 1,000 ML ONE (23:22)
[2018-08-03] MEDS ORDERED: INSULIN -REGULAR HUMAN 50 UNIT/0.5 ML ML ONE (23:22)
[2018-08-04] MEDS ORDERED: INSULIN -REGULAR HUMAN 50 UNIT/0.5 ML ML ONE (00:19)
[2018-08-04] MEDS ORDERED: CLINDAMYCIN 600MG/D5W 600 MG/50 ML BAG IV ONE (00:22)
[2018-08-04] MEDS ORDERED: NA CHLORIDE 0.9% 1,000 ML ONE (00:28)
--- NOTE | 2018-08-04 00:58 | EDPHYS ---
Physician Documentation [facility] Name: Barb Cortez Age: 42 yrs Sex: Female : 1975 Arrival Date: 08/03/2018 Time: 21:16 Bed 27 Private MD: ED Physician Miguel Angel Sidhu HPI: 08/03 21:45 This 42 yrs old Female presents to ER via Wheelchair with complaints of cp Fever, ABCESS UNDER R ARMPITT. 21:45 The patient reports fever, not measured (subjective). cp 21:45 Onset: The symptoms/episode began/occurred today. cp 21:45 Associated signs and symptoms: Pertinent positives: abscess right axilla. cp Historical: - Allergies: 21:39 Aspirin; rv 21:39 PENICILLINS; rv 21:39 IV CONTRAST; rv 21:39 Ciprofloxacin; rv 21:39 Tramadol HCl; rv - Home Meds: 21:47 metformin 1,000 mg Oral tab 1 tab 2 times per day [Active]; Lantus 100 unit/mL Sub-Q rv soln [Active]; Humalog 100 unit/mL Sub-Q soln [Active]; - PMHx: 21:39 Bipolar disorder; Depression; Diabetes - IDDM; Hyperlipidemia; Hypertension; Kidney rv stones; Migraines; - PSHx: 21:39 AMPUTATION RIGHT LEG; ; rv - Immunization history:: Adult Immunizations up to date, Flu vaccine is up to date. - Social history:: Smoking status: Patient uses tobacco products, smokes one-half pack cigarettes per day. - Ebola Screening: : Patient negative for fever greater than or equal to 101.5 degrees Fahrenheit, and additional compatible Ebola Virus Disease symptoms Patient denies exposure to infectious person Patient denies travel to an Ebola-affected area in the 21 days before illness onset. ROS: 21:50 Constitutional: Positive for sweats, Negative for body aches, fever, poor PO intake. cp 21:50 Eyes: Negative for injury, pain, redness, and discharge. cp 21:50 ENT: Negative for drainage from ear(s), ear pain, sore throat, difficulty swallowing, difficulty handling secretions. 21:50 Respiratory: Negative for cough, shortness of breath, wheezing. 21:50 Abdomen/GI: Negative for abdominal pain, nausea, vomiting, and diarrhea, black/tarry stool, rectal bleeding. 21:50 : Negative for urinary symptoms. 21:50 Skin: Positive for abscess, of the right axilla. 21:50 Neuro: Negative for altered mental status, headache, weakness. 21:50 All other systems are negative. Exam: 21:55 Constitutional: The patient appears in no acute distress, alert, awake, non-toxic, well cp developed, well nourished. 21:55 Head/Face: Normocephalic, atraumatic. cp 21:55 Eyes: Periorbital structures: appear normal, Conjunctiva: normal, no exudate, no injection, Lids and lashes: appear normal, bilaterally. 21:55 ENT: External ear(s): are unremarkable, Nose: is normal, Mouth: Lips: moist, Oral mucosa: moist, Posterior pharynx: is normal, airway is patent. 21:55 Chest/axilla: Inspection: abscess, that is small, of the right axilla Palpation: tenderness, that is moderate. 21:55 Cardiovascular: Rate: normal, Rhythm: regular. 21:55 Respiratory: the patient does not display signs of respiratory distress, Respirations: normal, no use of accessory muscles, no retractions, no splinting, no tachypnea, labored breathing, is not present, Breath sounds: are clear throughout, no decreased breath sounds, no stridor, no wheezing. 21:55 Abdomen/GI: Exam negative for discomfort, distension, guarding, Inspection: abdomen appears normal. 21:55 Neuro: Orientation: to person, place \T\ time. Mentation: is normal. 22:00 Musculoskeletal/extremity: right BKA. cp Vital Signs: 21:44 BP 106 / 74; Pulse 95; Resp 18; Temp 98.6(O); Pulse Ox 98% ; Weight 50 kg (R); rv 22:00 BP 112 / 74; Pulse 93; Resp 18 S; Pulse Ox 100% on R/A; rv 22:30 BP 118 / 50; Pulse 96; Resp 17; Pulse Ox 98% on R/A; rv 23:00 BP 112 / 74; Pulse 97; Resp 16 S; Pulse Ox 99% on R/A; rv 23:45 BP 122 / 74; Pulse 94; Resp 17; Pulse Ox 99% on R/A; rv 08/04 00:15 BP 114 / 65; Pulse 95; Resp 16; Pulse Ox 98% on R/A; rv 01:00 BP 112 / 67; Pulse 95; Resp 16 S; Pulse Ox 98% on R/A; rv Procedures: 00:22 I \T\ D: Incision and drainage was performed for an abscess of the right axilla. Prepped cp with Betadine, Anesthetized with 8 ccs of 50/50 mixture 1% lidocaine with epi and 0.5% marcaine. Incised with #11 blade. Drained small amount purulent fluid. bloody fluid. Packed with iodoform gauze, Dressing: sterile 4x4 gauze, the patient tolerated the procedure well. MDM: 08/03 21:30 Patient medically screened. 22:00 Differential diagnosis: cellulitis, abscess, DKA. 08/04 00:56 Data reviewed: vital signs, nurses notes, lab test result(s), and as a result, I will cp discharge patient. 00:56 Counseling: I had a detailed discussion with the patient and/or guardian regarding: the cp historical points, exam findings, and any diagnostic results supporting the discharge/admit diagnosis, lab results, the need for outpatient follow up, an medical record librarian, to return to the emergency department if symptoms worsen or persist or if there are any questions or concerns that arise at home. 08/03 21:48 Order name: CBC with Diff; Complete Time: 22:58 08/04 00:56 Interpretation: Normal except: WBC 11.3; RBC 4.94. 08/03 21:48 Order name: BMP; Complete Time: 22:58 08/04 00:56 Interpretation: Normal except: NA 134; GLUC 598; CRE 1.56; GFR 36. 08/03 22:19 Order name: Urine Dipstick--Ancillary (enter results); Complete Time: 22:58 [facility] 08/03 22:19 Order name: Urine --Ancillary (enter results); Complete Time: 22:58 [facility] 08/03 23:56 Order name: Glucose, Ancillary Testing; Complete Time: 00:11 EDMS 08/04 00:42 Order name: Wound Culture 08/04 00:56 Order name: Glucose, Ancillary Testing; Complete Time: 00:59 EDMS 08/04 00:59 Interpretation: Abnormal: GLUC,ANCIL 303. 08/03 21:48 Order name: Urine Dipstick-Ancillary (obtain specimen); Complete Time: 22:17 cp 08/03 21:48 Order name: Urine Test (obtain specimen); Complete Time: 22:17 cp 08/03 21:48 Order name: IV; Complete Time: 22:06 cp 08/03 21:48 Order name: I\T\D Setup; Complete Time: 22:17 cp 08/03 22:59 Order name: NPO; Complete Time: 23:10 cp 08/04 00:46 Order name: Accucheck Blood Glucose: recheck 0100; Complete Time: 01:13 cp Administered Medications: 08/03 22:23 Drug: fentaNYL (PF) 25 mcg Route: IVP; Site: right antecubital; rv 23:15 Drug: Insulin Regular Human 10 units {Co-Signature: shena (Nolvia Bass RN).} Route: IVP; rv Site: right antecubital; 08/04 00:24 Follow up: Response: Blood sugar is lowered rv 08/03 23:15 Drug: NS 0.9% 1000 ml Route: IV; Rate: 1 bolus; Site: right antecubital; rv 08/04 00:25 Follow up: IV Status: Completed infusion rv 00:16 Drug: Insulin Regular Human 10 units {Co-Signature: shena (Nolvia Bass RN).} Route: IVP; rv Site: right antecubital; 01:32 Follow up: Response: Blood sugar is lowered rv 00:17 Drug: Clindamycin 600 mg Route: IVPB; Infused Over: 30 mins; Site: right antecubital; rv 01:32 Follow up: IV Status: Completed infusion rv 00:17 Drug: NS 0.9% 1000 ml Route: IV; Rate: 1 bolus; Site: right antecubital; rv 01:32 Follow up: IV Status: Completed infusion rv Disposition: 08/04/18 00:57 Discharged to Home. Impression: Cutaneous abscess of right axilla, Hyperglycemia, unspecified. - Condition is Stable. - Discharge Instructions: Skin Abscess, Hyperglycemia, Incision and Drainage, Blood Glucose Monitoring, Adult, Incision and Drainage, Care After. - Prescriptions for Clindamycin HCl 300 mg Oral Capsule - take 1 capsule by ORAL route every 6 hours for 10 days; 40 capsule. - Medication Reconciliation Form, Thank You Letter, Antibiotic Education, Prescription Opioid Use form. - Follow up: Private Physician; When: Tomorrow; Reason: Recheck today's complaints. - Problem is new. - Symptoms have improved. Signatures: Dispatcher [employer] EDMS Crescencio Storey PA PA cp Vicente, Ronaldo, RN RN Nolvia Bass RN ls4 Corrections: (The following items were deleted from the chart) 01:34 00:57 08/04/2018 00:57 Discharged to Home. Impression: Cutaneous abscess of right rv axilla; Hyperglycemia, unspecified. Condition is Stable. Forms are Medication Reconciliation Form, Thank You Letter, Antibiotic Education, Prescription Opioid Use. Follow up: Private Physician; When: Tomorrow; Reason: Recheck today's complaints. Problem is new. Symptoms have improved. cp
--- NOTE | 2018-08-04 00:58 | ER ---
Nurse's Notes [facility] Name: Barb Cortez Age: 42 yrs Sex: Female : 1975 Arrival Date: 08/03/2018 Time: 21:16 Bed 27 Private MD: Diagnosis: Cutaneous abscess of right axilla;Hyperglycemia, unspecified Presentation: 08/03 21:36 Presenting complaint: Patient states: "PAIN STARTED \\T\\ 1500 RIGHT ARMPIT AND NOTICED rv ABCESS.". Transition of care: patient was not received from another setting of care. Onset of symptoms was August 03, 2018 at 15:00. Risk Assessment: Do you want to hurt yourself or someone else? Patient reports no desire to harm self or others. Initial Sepsis Screen: Does the patient meet any 2 criteria? No. Patient's initial sepsis screen is negative. Does the patient have a suspected source of infection? No. Patient's initial sepsis screen is negative. Care prior to arrival: None. 21:36 Method Of Arrival: Wheelchair rv 21:36 Acuity: HARI 3 rv Historical: - Allergies: 21:39 Aspirin; rv 21:39 PENICILLINS; rv 21:39 IV CONTRAST; rv 21:39 Ciprofloxacin; rv 21:39 Tramadol HCl; rv - Home Meds: 21:47 metformin 1,000 mg Oral tab 1 tab 2 times per day [Active]; Lantus 100 unit/mL Sub-Q rv soln [Active]; Humalog 100 unit/mL Sub-Q soln [Active]; - PMHx: 21:39 Bipolar disorder; Depression; Diabetes - IDDM; Hyperlipidemia; Hypertension; Kidney rv stones; Migraines; - PSHx: 21:39 AMPUTATION RIGHT LEG; ; rv - Immunization history:: Adult Immunizations up to date, Flu vaccine is up to date. - Social history:: Smoking status: Patient uses tobacco products, smokes one-half pack cigarettes per day. - Ebola Screening: : Patient negative for fever greater than or equal to 101.5 degrees Fahrenheit, and additional compatible Ebola Virus Disease symptoms Patient denies exposure to infectious person Patient denies travel to an Ebola-affected area in the 21 days before illness onset. Screenin:48 Abuse screen: Denies threats or abuse. Denies injuries from another. Nutritional rv screening: No deficits noted. Tuberculosis screening: No symptoms or risk factors identified. Fall Risk None identified. Assessment: 21:47 General: Appears in no apparent distress. comfortable, Behavior is calm, cooperative. rv Pain: Complains of pain in RIGHT ARMPIT. Neuro: Level of Consciousness is awake, alert, obeys commands, Oriented to person, place, time, situation. Cardiovascular: Capillary refill < 3 seconds. Respiratory: Reports. Respiratory: Airway is patent. GI: No signs and/or symptoms were reported involving the gastrointestinal system. : No signs and/or symptoms were reported regarding the genitourinary system. EENT: No signs and/or symptoms were reported regarding the EENT system. Derm: Skin is intact. Musculoskeletal: No signs and/or symptoms reported regarding the musculoskeletal system. 08/04 00:32 Reassessment: Patient appears in no apparent distress at this time. rv Vital Signs: 08/03 21:44 BP 106 / 74; Pulse 95; Resp 18; Temp 98.6(O); Pulse Ox 98% ; Weight 50 kg (R); rv 22:00 BP 112 / 74; Pulse 93; Resp 18 S; Pulse Ox 100% on R/A; rv 22:30 BP 118 / 50; Pulse 96; Resp 17; Pulse Ox 98% on R/A; rv 23:00 BP 112 / 74; Pulse 97; Resp 16 S; Pulse Ox 99% on R/A; rv 23:45 BP 122 / 74; Pulse 94; Resp 17; Pulse Ox 99% on R/A; rv 08/04 00:15 BP 114 / 65; Pulse 95; Resp 16; Pulse Ox 98% on R/A; rv 01:00 BP 112 / 67; Pulse 95; Resp 16 S; Pulse Ox 98% on R/A; rv ED Course: 08/03 21:16 Patient arrived in ED. al2 21:26 Crescencio Storey PA is PHCP. cp 21:26 Miguel Angel Sidhu MD is Attending Physician. cp 21:37 Triage completed. rv 21:48 Patient has correct armband on for positive identification. Bed in low position. Call rv light in reach. Side rails up X 1. Adult w/ patient. Pulse ox on. NIBP on. 21:49 Patient notified of wait time Patient's private physician notified. rv 22:17 BMP Sent. rv 22:17 CBC with Diff Sent. rv 22:17 Initial lab(s) drawn, by il, sent to lab. Inserted saline lock: 20 gauge in left rv antecubital area, using aseptic technique. Blood collected. 22:46 Notified Nurse Practitioner and/or Physician [facility] of a critical lab result(s), glucose of 598. 08/04 00:32 Assist provider with I \\T\\ D: of an abscess on right axilla Set up I\\T\\D tray. Performed by sonam DUBON Culture sent to lab. Wound packed. 4X4s, Dressing with 4X4s, Patient tolerated well. 01:34 IV discontinued, bleeding controlled, No redness/swelling at site. Pressure dressing rv applied. Administered Medications: 08/03 22:23 Drug: fentaNYL (PF) 25 mcg Route: IVP; Site: right antecubital; rv 23:15 Drug: Insulin Regular Human 10 units {Co-Signature: shena (Nolvia Bass RN).} Route: IVP; rv Site: right antecubital; 08/04 00:24 Follow up: Response: Blood sugar is lowered rv 08/03 23:15 Drug: NS 0.9% 1000 ml Route: IV; Rate: 1 bolus; Site: right antecubital; rv 08/04 00:25 Follow up: IV Status: Completed infusion rv 00:16 Drug: Insulin Regular Human 10 units {Co-Signature: shena (Nolvia Bass RN).} Route: IVP; rv Site: right antecubital; 01:32 Follow up: Response: Blood sugar is lowered rv 00:17 Drug: Clindamycin 600 mg Route: IVPB; Infused Over: 30 mins; Site: right antecubital; rv 01:32 Follow up: IV Status: Completed infusion rv 00:17 Drug: NS 0.9% 1000 ml Route: IV; Rate: 1 bolus; Site: right antecubital; rv 01:32 Follow up: IV Status: Completed infusion rv Outcome: 00:57 Discharge ordered by . cp 01:34 Discharged to home via wheelchair. rv 01:34 Condition: good 01:34 Instructed on the need for admit. 01:34 Patient left the ED. rv Signatures: Leticia Brito RN RN Crescencio Rehman PA PA cp Love, Angelica al2 Vicente, Ronaldo, RN RN rv Nolvia Bass RN ls4
[2018-08-04 02:23] VITALS: TEMP 98.6
[2018-08-04 02:29] VITALS: O2SAT 98
[2018-08-04 02:30] VITALS: BP 112/67
== END 2018-08-04 01:34 | disposition home or self-care (01) ==
LOC: ER 21:15
PROC: 0J9D0ZZ Drainage of Right Upper Arm Subcutaneous Tissue and Fascia, Open Approach (ICD-10-PCS; principal; 2018-08-04)
DX: L02.411 Cutaneous abscess of right axilla (principal); E11.65 Type 2 diabetes mellitus with hyperglycemia; F17.210 Nicotine dependence, cigarettes, uncomplicated; I10 Essential (primary) hypertension; F31.9 Bipolar disorder, unspecified; F32.9 Major depressive disorder, single episode, unspecified; Z79.4 Long term (current) use of insulin; Z88.0 Allergy status to penicillin; Z88.3 Allergy status to other anti-infective agents; Z88.6 Allergy status to analgesic agent; Z91.041 Radiographic dye allergy status
CPT/HCPCS: 36415; 80048; 81003; 81025; 82962; 85025; 87070; 87077; 87186; 87205; 96361; 96365; 96375; 99284; J3010; J7030

== ENCOUNTER 2018-09-20 21:57 | Emergency (ER) | payer OTHER ==
[2018-09-21] MEDS ORDERED: IPRATROPIUM BROM 0.5MG/2.5ML ONE (01:26)
[2018-09-21] MEDS ORDERED: LEVALBUTEROL 1.25 MG/3 ML NEB ONE (01:28)
--- NOTE | 2018-09-21 02:13 | ER ---
Nurse's Notes [facility] Name: Barb Cortez Age: 42 yrs Sex: Female : 1975 Arrival Date: 09/20/2018 Time: 22:12 Bed 24 Private MD: Diagnosis: Bronchitis, not specified as acute or chronic Presentation: 09/20 22:49 Presenting complaint: Patient states: Reports she is having cough congestion, headache, ea body aches and sore throat. Reports the symptoms started a week ago. Transition of care: patient was not received from another setting of care. Onset of symptoms was September 20, 2018. Risk Assessment: Do you want to hurt yourself or someone else? Patient reports no desire to harm self or others. Initial Sepsis Screen: Does the patient meet any 2 criteria? HR > 90 bpm. Yes Does the patient have a suspected source of infection? No. Patient's initial sepsis screen is negative. Care prior to arrival: None. 22:49 Method Of Arrival: Wheelchair ea 22:49 Acuity: HARI 4 ea CIA AGENT: 22:51 LMP N/A - ea Historical: - Allergies: 22:54 Aspirin; ea 22:54 PENICILLINS; ea 22:54 Ciprofloxacin; ea 22:54 IV contrast; ea 22:54 Tramadol HCl; ea 22:54 Benadryl; ea - Home Meds: 22:54 Humalog 100 unit/mL Sub-Q soln [Active]; Lantus 100 unit/mL Sub-Q soln [Active]; ea metformin 1,000 mg Oral tab 1 tab 2 times per day [Active]; - PMHx: 22:54 Bipolar disorder; Depression; Diabetes - IDDM; Hyperlipidemia; Hypertension; Kidney ea stones; Migraines; - PSHx: 22:54 None; ea - Immunization history:: Adult Immunizations up to date. - Social history:: Smoking status: Patient uses tobacco products, smokes one-half pack cigarettes per day. - Ebola Screening: : No symptoms or risks identified at this time. Assessment: 09/21 01:00 General: Appears in no apparent distress. Behavior is calm, cooperative, Reports chills fu for fever for a week ago. Pain: Complains of pain in headache Pain currently is 6 out of 10 on a pain scale. Neuro: No deficits noted. Cardiovascular: Denies chest pain. Respiratory: Reports shortness of breath cough that is. Musculoskeletal: No deficits noted. 02:00 Reassessment: Patient appears in no apparent distress at this time. Patient and/or fu family updated on plan of care and expected duration. Pain level reassessed. Patient is alert, oriented x 3, equal unlabored respirations, skin warm/dry/pink. Patient states symptoms have improved. 02:30 Reassessment: Patient appears in no apparent distress at this time. Patient and/or fu family updated on plan of care and expected duration. Pain level reassessed. Patient is alert, oriented x 3, equal unlabored respirations, skin warm/dry/pink. Patient states symptoms have improved. Vital Signs: 09/20 22:51 BP 117 / 60; Pulse 104; Resp 20; Temp 99.2; Pulse Ox 99% ; Weight 68.04 kg; Height 4 ea ft. 9 in. (144.78 cm); Pain 8/10; 09/21 02:00 BP 106 / 73; Pulse 106; Temp 99.0; Pulse Ox 98% ; Pain 3/10; fu 09/20 22:51 Body Mass Index 32.46 (68.04 kg, 144.78 cm) ea ED Course: 09/20 22:12 Patient arrived in ED. am2 22:51 Triage completed. ea 22:55 Arm band placed on right wrist. Patient placed in waiting room. ea 09/21 01:00 [facility]C [facility]. kb 01:00 Wagner Carlson MD is Attending Physician. kb 01:12 Remy Douglas, MARIA ALEJANDRA is Primary Nurse. fu 02:35 Chest Single View XRAY In Process Unspecified. EDMS Administered Medications: 01:27 Drug: Xopenex (3) 1.25 mg Route: Inhalation; fu 01:27 Drug: AtroVENT Aerosol 0.5 mg Route: Inhalation; fu Outcome: 02:13 Discharge ordered by . kb 02:49 Discharged to home ambulatory. fu 02:49 Condition: improved 02:49 Discharge instructions given to patient, Instructed on discharge instructions, follow up and referral plans. Demonstrated understanding of instructions, follow-up care, medications, Prescriptions given X 2. 03:07 Patient left the ED. fu Signatures: Dispatcher [employer] EDMS Daily Kline FNP-C FNP-Ckb Moreno, Amanda am2 Diana Zaldivar, RN RN ea Remy Douglas, RN RN fu
--- NOTE | 2018-09-21 02:14 | EDPHYS ---
Physician Documentation [facility] Name: Barb Cortez Age: 42 yrs Sex: Female : 1975 Arrival Date: 09/20/2018 Time: 22:12 Bed 24 Private MD: ED Physician Wagner Carlson HPI: 09/21 02:12 This 42 yrs old Female presents to ER via Wheelchair with complaints of Flu kb Symptoms. 02:17 The patient or guardian reports cough, that is intermittent, described as moderate, kb with no sputum, flu symptoms. Onset: The symptoms/episode began/occurred 1 week(s) ago. Severity of symptoms: At their worst the symptoms were moderate, in the emergency department the symptoms are unchanged. Modifying factors: The symptoms are alleviated by nothing, the symptoms are aggravated by nothing. Associated signs and symptoms: Pertinent positives: fever, rhinorrhea, Pertinent negatives: chest pain, diarrhea, ear ache, nausea, sore throat, vomiting. The patient has not experienced similar symptoms in the past. The patient has not recently seen a physician. 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 - Social history:: Smoking status: Patient uses tobacco products, smokes one-half pack cigarettes per day. - Ebola Screening: : No symptoms or risks identified at this time. ROS: 09/21 02:16 ENT: Negative for injury, pain, and discharge, Neck: Negative for injury, pain, and kb swelling, Cardiovascular: Negative for chest pain, palpitations, and edema, Abdomen/GI: Negative for abdominal pain, nausea, vomiting, diarrhea, and constipation, Back: Negative for injury and pain, MS/Extremity: Negative for injury and deformity, Skin: Negative for injury, rash, and discoloration, Neuro: Negative for headache, weakness, numbness, tingling, and seizure. Constitutional: Positive for fever, malaise, Negative for body aches, chills, fatigue, poor PO intake, weight loss. Respiratory: Positive for cough, Negative for dyspnea on exertion, hemoptysis, orthopnea, pleurisy, shortness of breath, sputum production, wheezing. Exam: 02:16 Constitutional: This is a well developed, well nourished patient who is awake, alert, kb and in no acute distress. Head/Face: Normocephalic, atraumatic. ENT: Nares patent. No nasal discharge, no septal abnormalities noted. Tympanic membranes are normal and external auditory canals are clear. Oropharynx with no redness, swelling, or masses, exudates, or evidence of obstruction, uvula midline. Mucous membranes moist. Neck: Trachea midline, no thyromegaly or masses palpated, and no cervical lymphadenopathy. Supple, full range of motion without nuchal rigidity, or vertebral point tenderness. No Meningismus. Chest/axilla: Normal chest wall appearance and motion. Nontender with no deformity. No lesions are appreciated. Cardiovascular: Regular rate and rhythm with a normal S1 and S2. No gallops, murmurs, or rubs. Normal PMI, no JVD. No pulse deficits. Abdomen/GI: Soft, non-tender, with normal bowel sounds. No distension or tympany. No guarding or rebound. No evidence of tenderness throughout. Skin: Warm, dry with normal turgor. Normal color with no rashes, no lesions, and no evidence of cellulitis. MS/ Extremity: Pulses equal, no cyanosis. Neurovascular intact. Full, normal range of motion. Neuro: Awake and alert, GCS 15, oriented to person, place, time, and situation. Cranial nerves II-XII grossly intact. Motor strength 5/5 in all extremities. Sensory grossly intact. Cerebellar exam normal. Normal gait. 02:16 Respiratory: Breath sounds: wheezing: expiratory that is moderate, is scattered. Vital Signs: 09/20 22:51 BP 117 / 60; Pulse 104; Resp 20; Temp 99.2; Pulse Ox 99% ; Weight 68.04 kg; Height 4 ea ft. 9 in. (144.78 cm); Pain 8/10; 09/21 02:00 BP 106 / 73; Pulse 106; Temp 99.0; Pulse Ox 98% ; Pain 3/10; fu 09/20 22:51 Body Mass Index 32.46 (68.04 kg, 144.78 cm) ea MDM: 01:00 Patient medically screened. kb 02:17 Data reviewed: vital signs, nurses notes. Data interpreted: Pulse oximetry: on room air kb is 99 %. Interpretation: normal. Counseling: I had a detailed discussion with the patient and/or guardian regarding: the historical points, exam findings, and any diagnostic results supporting the discharge/admit diagnosis, lab results, radiology results, the need for outpatient follow up, a family practitioner, to return to the emergency department if symptoms worsen or persist or if there are any questions or concerns that arise at home. 09/20 22:53 Order name: Flu; Complete Time: 01: 09/20 22:53 Order name: Strep; Complete Time: 01: 09/20 22:53 Order name: Chest Single View XRAY 09/20 23:38 Order name: Throat Culture EDMS Administered Medications: 01: Drug: Xopenex (3) 1.25 mg Route: Inhalation; fu 01:27 Drug: AtroVENT Aerosol 0.5 mg Route: Inhalation; fu Disposition: 10:23 Co-signature as Attending Physician, Wagner Carlson MD I agree with the assessment and wa plan of care. Disposition: 09/21/18 02:13 Discharged to Home. Impression: Bronchitis, not specified as acute or chronic. - Condition is Stable. - Discharge Instructions: Acute Bronchitis, [id number], Viral Respiratory Infection, [id number]. - Prescriptions for Prednisone 20 mg Oral Tablet - take 1 tablet by ORAL route once daily for 5 days; 5 tablet. Zithromax Z- [place] 250 mg Oral Tablet - take 1 tablet by ORAL route as directed for 5 days Day 1 - take two (2) tablets one time. Day 2, 3, 4 , 5 take one (1) tablet once daily.; 6 tablet. - Medication Reconciliation Form, Thank You Letter, Antibiotic Education, Prescription Opioid Use form. - Follow up: Emergency Department; When: As needed; Reason: Worsening of condition. Follow up: Private Physician; When: 2 - 3 days; Reason: Recheck today's complaints, Continuance of care, Re-evaluation by your physician. Signatures: Dispatcher [employer] Daily William, VIOLETTA DELCID-Diana Cano, RN Wagner Colvin ea, MD MD wa Umadhay, Felix, RN RN fu Corrections: (The following items were deleted from the chart) 03:07 02:13 09/21/2018 02:13 Discharged to Home. Impression: Bronchitis, not specified as fu acute or chronic. Condition is Stable. Forms are Medication Reconciliation Form, Thank You Letter, Antibiotic Education, Prescription Opioid Use. Follow up: Emergency Department; When: As needed; Reason: Worsening of condition. Follow up: Private Physician; When: 2 - 3 days; Reason: Recheck today's complaints, Continuance of care, Re-evaluation by your physician. kb
[2018-09-21 03:50] VITALS: BP 106/73; TEMP 99; O2SAT 98
--- NOTE | 2018-09-21 09:12 | RAD REPORT ---
EXAM DESCRIPTION: RAD - Chest Single View - 09/21/2018 2:35 am CLINICAL HISTORY: Cough and congestion COMPARISON: June 2018 TECHNIQUE: AP portable chest image was obtained 2351 hours . FINDINGS: Lung volumes are low. No focal lung parenchymal process. No failure or volume overload. He art and vasculature are normal. No measurable pleural effusion and no pneumothorax. No acute bony abn ormality seen. No acute aortic findings suspected. IMPRESSION: No acute cardiopulmonary process. No significant interval change.
== END 2018-09-21 03:07 | disposition home or self-care (01) ==
LOC: ER 21:57
DX: J40 Bronchitis, not specified as acute or chronic (principal); F31.9 Bipolar disorder, unspecified; F32.9 Major depressive disorder, single episode, unspecified; Z79.4 Long term (current) use of insulin; Z88.0 Allergy status to penicillin; Z88.6 Allergy status to analgesic agent; Z88.1 Allergy status to other antibiotic agents; Z91.041 Radiographic dye allergy status; F17.210 Nicotine dependence, cigarettes, uncomplicated
CPT/HCPCS: 71045; 87070; 87081; 87804; 99284

== ENCOUNTER 2019-01-29 18:49 | Emergency (ER) | payer OTHER ==
--- NOTE | 2019-01-29 20:16 | RAD REPORT ---
EXAM DESCRIPTION: CT - Head Brain Wo Cont - 01/29/2019 7:25 pm CLINICAL HISTORY: Headache/ear pain COMPARISON: July 2018 TECHNIQUE: Computed axial tomography of the head was obtained. IV contrast was not requested. All CT scans are performed using dose optimization technique as appropriate and may include automated exposure control or mA/KV adjustment according to patient size. FINDINGS: An intracranial bleed is not seen . The ventricles are normal in caliber. No extra-axial fluid collection is noted. Chronic complete opacification right mastoids. Mild fluid and chronic opacification left mastoid IMPRESSION: Chronic right mastoiditis Mild fluid within the left mastoids may indicate mild acute mastoiditis superimposed over chronic gera nges
--- NOTE | 2019-01-29 20:28 | EDPHYS ---
Physician Documentation [facility] Name: Barb Cortez Age: 43 yrs Sex: Female : 1975 Arrival Date: 01/29/2019 Time: 18:53 Bed 20 Private MD: Wagner Zaman E ED Physician Warner Lazo HPI: 01/29 20:24 This 43 yrs old Female presents to ER via Wheelchair with complaints of Ear kb Pain. 20:24 The patient presents with pain, that is acute. The complaints affect the left ear. kb Onset: The symptoms/episode began/occurred 3 day(s) ago. Modifying factors: The symptoms are alleviated by nothing, the symptoms are aggravated by nothing. Associated signs and symptoms: The patient has no apparent associated signs or symptoms. Severity of symptoms: At their worst the symptoms were moderate in the emergency department the symptoms are unchanged. The patient has not experienced similar symptoms in the past. The patient has not recently seen a physician. Pt reports left ear pain for 3 days. Denies fever or any other symptoms. 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 - Social history:: Smoking status: Patient uses tobacco products, smokes one-half pack cigarettes per day. - Ebola Screening: : Patient denies travel to an Ebola-affected area in the 21 days before illness onset. ROS: 20:24 Constitutional: Negative for fever, chills, and weight loss, Cardiovascular: Negative kb for chest pain, palpitations, and edema, Respiratory: Negative for shortness of breath, cough, wheezing, and pleuritic chest pain, Abdomen/GI: Negative for abdominal pain, nausea, vomiting, diarrhea, and constipation, : Negative for injury, bleeding, discharge, and swelling, MS/Extremity: Negative for injury and deformity, Skin: Negative for injury, rash, and discoloration, Neuro: Negative for headache, weakness, numbness, tingling, and seizure. 20:24 ENT: Positive for ear pain. Exam: 20:24 Constitutional: This is a well developed, well nourished patient who is awake, alert, kb and in no acute distress. Head/Face: Normocephalic, atraumatic. Chest/axilla: Normal chest wall appearance and motion. Nontender with no deformity. No lesions are appreciated. Cardiovascular: Regular rate and rhythm with a normal S1 and S2. No gallops, murmurs, or rubs. Normal PMI, no JVD. No pulse deficits. Respiratory: Lungs have equal breath sounds bilaterally, clear to auscultation and percussion. No rales, rhonchi or wheezes noted. No increased work of breathing, no retractions or nasal flaring. Abdomen/GI: Soft, non-tender, with normal bowel sounds. No distension or tympany. No guarding or rebound. No evidence of tenderness throughout. Skin: Warm, dry with normal turgor. Normal color with no rashes, no lesions, and no evidence of cellulitis. MS/ Extremity: Pulses equal, no cyanosis. Neurovascular intact. Full, normal range of motion. Neuro: Awake and alert, GCS 15, oriented to person, place, time, and situation. Cranial nerves II-XII grossly intact. Motor strength 5/5 in all extremities. Sensory grossly intact. Cerebellar exam normal. Normal gait. 20:24 ENT: External ear(s): pain with palpation of mastoid area left side, Ear canal(s): are normal, TM's: are normal. Vital Signs: 18:59 BP 102 / 70; Pulse 107; Resp 18; Temp 98.6; Pulse Ox 95% on R/A; Weight 65.77 kg (R); aj1 Height 4 ft. 9 in. (144.78 cm) (R); 19:38 BP 116 / 78; Pulse 92; Resp 14; Pulse Ox 100% on R/A; Pain 7/10; ch 20:18 BP 128 / 75; Pulse 101; Resp 16; Temp 99.6(O); Pulse Ox 100% on R/A; Pain 7/10; ch 18:59 Body Mass Index 31.38 (65.77 kg, 144.78 cm) aj1 MDM: 19:02 Patient medically screened. kb 20:26 Data reviewed: vital signs, nurses notes, radiologic studies, CT scan, I have discussed kb the patient's presentation/case with the attending Emergency Department Physician;. Data interpreted: Pulse oximetry: on room air is 100 %. Interpretation: normal. Counseling: I had a detailed discussion with the patient and/or guardian regarding: the historical points, exam findings, and any diagnostic results supporting the discharge/admit diagnosis, radiology results, the need for outpatient follow up, a family practitioner, to return to the emergency department if symptoms worsen or persist or if there are any questions or concerns that arise at home. 01/29 19:06 Order name: CT Head Brain wo Cont; Complete Time: 20:20 kb Administered Medications: 20:28 Drug: Clindamycin 300 mg Route: PO; 20:34 Follow up: Response: No adverse reaction Disposition: 01/30 07:19 Co-signature as Attending Physician, Warner Lazo MD. Disposition: 01/29/19 20:27 Discharged to Home. Impression: Unspecified mastoiditis, left ear. - Condition is Stable. - Discharge Instructions: Mastoiditis, Pediatric. - Prescriptions for Clindamycin HCl 300 mg Oral Capsule - take 1 capsule by ORAL route every 6 hours for 10 days; 40 capsule. - Medication Reconciliation Form, Thank You Letter, Antibiotic Education, Prescription Opioid Use form. - Follow up: Emergency Department; When: As needed; Reason: Worsening of condition. Follow up: Wagner Zaman MD; When: 2 - 3 days; Reason: Recheck today's complaints, Continuance of care, Re-evaluation by your physician. Signatures: Dispatcher [employer] Daily William FNP-C FNP-Priscilla You, RN RN Krista Breaux RN RN ajWarner Dover MD MD Corrections: (The following items were deleted from the chart) 01/29 20:34 20:27 01/29/2019 20:27 Discharged to Home. Impression: Unspecified mastoiditis, left ch ear. Condition is Stable. Forms are Medication Reconciliation Form, Thank You Letter, Antibiotic Education, Prescription Opioid Use. Follow up: Emergency Department; When: As needed; Reason: Worsening of condition. Follow up: Wagner Zaman; When: 2 - 3 days; Reason: Recheck today's complaints, Continuance of care, Re-evaluation by your physician. kb
--- NOTE | 2019-01-29 20:28 | ER ---
Nurse's Notes [facility] Name: Barb Cortez Age: 43 yrs Sex: Female : 1975 Arrival Date: 01/29/2019 Time: 18:53 Bed 20 Private MD: Wagner Zaman E Diagnosis: Unspecified mastoiditis, left ear Presentation: 01/29 18:54 Presenting complaint: Patient states: "For 3 days now I've been having pain in my left aj1 ear". Transition of care: patient was not received from another setting of care. Onset of symptoms was January 2019. Risk Assessment: Do you want to hurt yourself or someone else? Patient reports no desire to harm self or others. Initial Sepsis Screen: Does the patient meet any 2 criteria? HR > 90 bpm. No. Patient's initial sepsis screen is negative. Does the patient have a suspected source of infection? No. Patient's initial sepsis screen is negative. Care prior to arrival: None. 18:54 Method Of Arrival: Wheelchair aj1 18:54 Acuity: HARI 4 aj1 Triage Assessment: 18:59 General: Appears in no apparent distress. comfortable, Behavior is calm, cooperative, aj1 appropriate for age. Pain: Complains of pain in left ear Pain currently is 9 out of 10 on a pain scale. EENT: Reports ear pain. Neuro: Level of Consciousness is awake, alert, obeys commands. Cardiovascular: Patient's skin is warm and dry. Respiratory: Airway is patent Respiratory effort is even, unlabored, Respiratory pattern is regular, symmetrical. 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 - Social history:: Smoking status: Patient uses tobacco products, smokes one-half pack cigarettes per day. - Ebola Screening: : Patient denies travel to an Ebola-affected area in the 21 days before illness onset. Screenin:12 Abuse screen: Denies threats or abuse. Denies injuries from another. Nutritional ch screening: No deficits noted. Tuberculosis screening: No symptoms or risk factors identified. Fall Risk None identified. Assessment: 19:12 Reassessment: Patient appears in no apparent distress at this time. Patient and/or ch family updated on plan of care and expected duration. Pain level reassessed. Patient is alert, oriented x 3, equal unlabored respirations, skin warm/dry/pink. General: Appears in no apparent distress. comfortable. Pain: Complains of pain in left ear and left base of the skull Pain currently is 7 out of 10 on a pain scale. Pain began gradually, 2-3 days ago. Neuro: No deficits noted. Cardiovascular: Heart tones S1 S2 present. Respiratory: Airway is patent Respiratory effort is even, unlabored, Breath sounds are clear bilaterally. GI: No signs and/or symptoms were reported involving the gastrointestinal system. Derm: Skin is pink, warm \\T\\ dry. Musculoskeletal: Circulation, motion, and sensation intact. pt has a R BKA. 19:36 Reassessment: Patient appears in no apparent distress at this time. pt returned from ct ch scan, awaiting results now. pt given blanket. 20:18 Reassessment: Patient appears in no apparent distress at this time. No changes from previously documented assessment. Patient and/or family updated on plan of care and expected duration. Pain level reassessed. Patient is alert, oriented x 3, equal unlabored respirations, skin warm/dry/pink. 20:33 Reassessment: Patient appears in no apparent distress at this time. Patient and/or ch family updated on plan of care and expected duration. Pain level reassessed. Patient is alert, oriented x 3, equal unlabored respirations, skin warm/dry/pink. Patient states symptoms have not improved. Vital Signs: 18:59 BP 102 / 70; Pulse 107; Resp 18; Temp 98.6; Pulse Ox 95% on R/A; Weight 65.77 kg (R); aj1 Height 4 ft. 9 in. (144.78 cm) (R); 19:38 BP 116 / 78; Pulse 92; Resp 14; Pulse Ox 100% on R/A; Pain 7/10; ch 20:18 BP 128 / 75; Pulse 101; Resp 16; Temp 99.6(O); Pulse Ox 100% on R/A; Pain 7/10; ch 18:59 Body Mass Index 31.38 (65.77 kg, 144.78 cm) aj1 ED Course: 18:53 Patient arrived in ED. mr 18:53 Wagner Zaman MD is Private Physician. mr 18:58 Triage completed. aj1 18:59 Arm band placed on Patient placed in an exam room. aj1 19:02 Daily Kline [facility]C [facility]. kb 19:02 Warner Lazo MD is Attending Physician. kb 19:12 Priscilla Mcallister, RN is Primary Nurse. ch 19:12 No apparent distress. Resting quietly. ch 19:12 Bed in low position. Call light in reach. Side rails up X 1. Adult w/ patient. ch 19:12 No provider procedures requiring assistance completed. ch 19:24 CT completed. Patient tolerated procedure well. Patient moved back from CT. mw3 19:25 CT Head Brain wo Cont In Process Unspecified. EDMS 20:26 Wagner Zaman MD is Referral Physician. kb 20:33 Patient did not have IV access during this emergency room visit. ch Administered Medications: 20:28 Drug: Clindamycin 300 mg Route: PO; 20:34 Follow up: Response: No adverse reaction Outcome: 20:27 Discharge ordered by MD. kb 20:33 Discharged to home via wheelchair, with family. ch 20:33 Condition: stable 20:33 Discharge instructions given to patient, family, Instructed on discharge instructions, follow up and referral plans. medication usage, Demonstrated understanding of instructions, follow-up care, medications, Prescriptions given X 1. 20:34 Patient left the ED. Signatures: Dispatcher [employer] EDWI Daily Kline FNP-C FNP-Priscilla You, RN RN Krista Breaux RN RN aj1 Wilda [place] Michelle mw3
[2019-01-29] MEDS ORDERED: CLINDAMYCIN HCL 150 MG CAP ONE (20:44)
[2019-01-29 21:58] VITALS: O2SAT 100
[2019-01-29 21:59] VITALS: BP 128/75; TEMP 99.6
== END 2019-01-29 20:34 | disposition home or self-care (01) ==
LOC: ER 18:49
DX: H70.92 Unspecified mastoiditis, left ear (principal); I10 Essential (primary) hypertension; E11.9 Type 2 diabetes mellitus without complications; E78.5 Hyperlipidemia, unspecified; F32.9 Major depressive disorder, single episode, unspecified; F31.9 Bipolar disorder, unspecified; F17.210 Nicotine dependence, cigarettes, uncomplicated; Z79.4 Long term (current) use of insulin; Z88.0 Allergy status to penicillin; Z88.3 Allergy status to other anti-infective agents; Z88.5 Allergy status to narcotic agent; Z88.6 Allergy status to analgesic agent; Z88.8 Allergy status to other drugs, medicaments and biological substances; Z91.041 Radiographic dye allergy status
CPT/HCPCS: 70450; 99284

== ENCOUNTER 2019-11-06 01:09 | Emergency (ER) | payer OTHER ==
--- OUTSIDE RECORDS SUMMARY | 2019-11-06 01:12 | XMS REPORT ---
:1975 Author Organization [facility] t Address [address] [place] [address] Care Team Providers Name Role Phone Unavailable Unavailable Unavailable Problems This patient has no known problems. Allergies, Adverse Reactions, Alerts This patient has no known allergies or adverse reactions. Medications This patient has no known medications.
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
--- OUTSIDE RECORDS SUMMARY | 2019-11-06 01:13 | XMS REPORT | Summary of Care ---
:1975 Author Organization [facility] Address [address] [place] [address] Care Team Providers Name Role Phone Toi Insurance Hmo BHAVIN Oreilly Primary Care Provider Reason for Referral (Routine) Status Reason Specialty Diagnoses / Referred By Referred To Contact Procedures Contact New Request Psychiatry Diagnoses Hx of bipolar disorder PTSD (post-traumatic stress disorder) Kristen Oreilly, Psych Staff-Pcp Procedures CONSULT/REFERRAL PSYCHIATRY ADULT [facility] Primary Care [facility] [address] [place] [address] [address] [facility] [place] [phone] Phone: Phone: (Routine) Status Reason Specialty Diagnoses / Referred By Referred To Procedures Contact Contact New Request Neurology Diagnoses Migraine without status migrainosus, not intractable, unspecified migraine type Kristen Oreilly, Procedures CONSULT/REFERRAL NEUROLOGY [facility] [address] [address] (Routine) Status Reason Specialty Diagnoses / Referred By Referred To Procedures Contact Contact New Request Physical Therapy Diagnoses Chronic low back pain without sciatica, unspecified back pain laterality Kristen Oreilly, Procedures CONSULT/REFERRAL PHYSICAL THERAPY [facility] [address] [address] Reason for Visit Reason Comments Referral/consult Encounter Details Date Type Department Care Team Description 08/25/2019 Office Visit [facility] Family 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 Hx of bipolar disorder; [place], [id number] PTSD (post-traumatic stress disorder); [address] [place], [place] Type 2 diabetes mellitus wit h other specified complication, with long-term current use of insulin [phone] Allergies Active Allergy Reactions Severity Noted [...] (scale 4-6). oxymetazoline 0.05 % Use 1 Clarence in 15 mL 0 09/18/2017 Active nasal spray each nostril 2 (two) times daily. DISCARD AFTER 3 DAYS. USE MAY BE ADDICTIVE AFTER 4 DAYS USE. promethazine-codeine Take 5 mL by mouth 120 mL 0 09/18/2017 Active 6.25-10 mg/5 mL syrup 4 (four) times daily as needed for Cough. 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 She has tried to get into [facility] but her no transportation. She denies any [...] oxymetazoline 0.05 % nasal spray Use 1 Clarence in each nostril 2 (two) times daily. DISCARD AFTER 3 DAYS. USE MAY BE ADDICTIVE AFTER 4 DAYS USE. 15 mL 0 promethazine-codeine 6.25-10 mg/5 mL syrup Take 5 mL by mouth 4 (four) times daily as needed forCough. 120 mL 0 sod agirt-okeiiq-rojikm bottle (NEILMED SINUS RINSE COMPLETE) pkdv Use 1 Bottle in each nostril 2 (two) times daily. Use in hot shower 1 hour before bedtime 1 Each 0 Clcsqqmhpr-Kvhgycwfurcvj-Vfwr (FIORICET) 50-300-40 mg per capsule Take 1 [...] of the visit time. If applicable, the [facility] database was accessed to review any controlled substance prescription claims data. The [employer] prescription claims data in [employer] was reviewed to assess patient compliance with the medication treatment plan. 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
--- OUTSIDE RECORDS SUMMARY | 2019-11-06 01:14 | XMS REPORT | Summary of Care ---
:1975 Author Organization [facility] Address [address] [place] [address] Care Team Providers Name Role Phone Toi Insurance Hmo BHAVIN Oreilly Primary Care Provider Reason for Visit Reason Comments Assessment Encounter Details Date Type Department Care Team Description 10/10/2019 Telephone [facility] and Kristen Oreilly FNP Assessment Adult Primary Care- [address] [facility] [address] [facility] , [place] [address] [address] [place] [address] [phone] Allergies Active Allergy Reactions Severity Noted Date Comments Aspirin Hives 07/14/2005 Ciprofloxacin Hives 04/11/2017 Iodine And Iodide Containing Anaphylaxis 07/14/2005 Products Mushroom Other - See comments Low 06/12/2019 "pass o ut" Penicillin Hives 04/11/2017 Tramadol Other - See comments 03/08/2019 drowsin ess documented as of this encounter (statuses as of 10/11/2019) Medications Medication Sig Dispensed Refills Start Date [...] (scale 4-6). oxymetazoline 0.05 % Use 1 [place] in 15 mL 0 09/18/2017 Active nasal spray each nostril 2 (two) times daily. DISCARD AFTER 3 DAYS. USE MAY BE ADDICTIVE AFTER 4 DAYS USE. promethazine-codeine Take 5 mL by mouth 120 mL 0 09/18/2017 Active 6.25-10 mg/5 mL syrup 4 (four) times daily as needed for Cough. 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
--- OUTSIDE RECORDS SUMMARY | 2019-11-06 01:14 | XMS REPORT | Summary of Care ---
:1975 Author Organization [facility] Address [address] [place] [address] Care Team Providers Name Role Phone Toi Insurance Hmo BHAVIN Oreilly Primary Care Provider Reason for Visit Reason Comments Rx Concern/Question Encounter Details Date Type Department Care Team Description 08/31/2019 Telephone [facility] Family Josh Oreilly FNP Rx Concern/Question Medicine - [place] [address] [address] [place] [address] [facility] [address] [address] [place], [place] [phone] Allergies Active Allergy Reactions Severity Noted Date Comments Aspirin Hives 07/14/2005 Ciprofloxacin Hives 04/11/2017 Iodine And Iodide Containing Anaphylaxis 07/14/2005 Products Mushroom Other - See comments Low 06/12/2019 "pass o ut" Penicillin Hives 04/11/2017 Tramadol Other - See comments 03/08/2019 drowsin ess documented as of this encounter (statuses as of 09/05/2019) Medications Medication Sig Dispensed Refills Start Date [...] (scale 4-6). oxymetazoline 0.05 % Use 1 [employer] in 15 mL 0 09/18/2017 Active nasal spray each nostril 2 (two) times daily. DISCARD AFTER 3 DAYS. USE MAY BE ADDICTIVE AFTER 4 DAYS USE. promethazine-codeine Take 5 mL by mouth 120 mL 0 09/18/2017 Active 6.25-10 mg/5 mL syrup 4 (four) times daily as needed for Cough. sod Use 1 Bottle in 1 Each 0 09/18/2017 Act yari ghuqr-pliwbx-oxwhbz each nostril 2 bottle (NEILMED SINUS (two) [...] as of this encounter (statuses as of 09/05/2019) Active Problems Problem Noted Date Migraine without status migrainosus, not intractable, unspecified migraine 08/25/2019 type Chronic low back pain without sciatica, unspecified ba ck pain laterality 08/25/2019 Hx of bipolar disorder 08/25/2019 Lumbar herniated disc 08/25/2019 Type 2 diabetes mellitus with other specified complica tion, with long-term 08/25/2019 current use of insulin Abdominal pain 07/14/2005 Overview: ICD10 Diagnosis 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 [place] [phone] Health Maintenance Due Date Last Done Comments [...] Effective Dates Phone Addre ss Type Group [facility] STAR xxxxxxxxx 2018-Present Medicaid COMM PLAN - PLUS MANAGED MEDICAID documented as of this encounter
--- OUTSIDE RECORDS SUMMARY | 2019-11-06 01:14 | XMS REPORT | Summary of Care ---
:1975 Author Organization [facility] Address [address] [place] [address] Care Team Providers Name Role Phone Toi Insurance Hmo BHAVIN Oreilly Primary Care Provider Reason for Visit Reason Comments Assessment Encounter Details Date Type Department Care Team Description 10/10/2019 Telephone [facility] Pediatric and Kristen Oreilly FNP Assessment Adult Primary Care- [address] [facility] [address] [facility] , [place] [address] [address] [place] [address] [phone] Allergies Active Allergy Reactions Severity Noted Date [...] (scale 4-6). oxymetazoline 0.05 % Use 1 [place] in 15 mL 0 09/18/2017 Active nasal spray each nostril 2 (two) times daily. DISCARD AFTER 3 DAYS. USE MAY BE ADDICTIVE AFTER 4 DAYS USE. promethazine-codeine Take 5 mL by mouth 120 mL 0 09/18/2017 Active 6.25-10 mg/5 mL syrup 4 (four) times daily as needed for Cough. 

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
--- OUTSIDE RECORDS SUMMARY | 2019-11-06 01:15 | XMS REPORT | Summary of Care ---
:1975 Author Organization [facility] Address [address] [place] [address] Care Team Providers Name Role Phone Toi Insurance Hmo BHAVIN Oreilly Primary Care Provider Reason for Visit Reason Comments Assessment Encounter Details Date Type Department Care Team Description 10/10/2019 Telephone [facility] Pediatric and Kristen Oreilly FNP Assessment Adult Primary Care- [address] [facility]103 [address] [facility] , [place] [address] [address] [place] [address] [phone] Allergies Active Allergy Reactions Severity Noted Date [...] (scale 4-6). oxymetazoline 0.05 % Use 1 [place] in 15 mL 0 09/18/2017 Active nasal spray each nostril 2 (two) times daily. DISCARD AFTER 3 DAYS. USE MAY BE ADDICTIVE AFTER 4 DAYS USE. promethazine-codeine Take 5 mL by mouth 120 mL 0 09/18/2017 Active 6.25-10 mg/5 mL syrup 4 (four) times daily as needed for Cough. 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
--- OUTSIDE RECORDS SUMMARY | 2019-11-06 01:16 | XMS REPORT | Summary of Care ---
:1975 Author Organization [facility] Address [address] [place] [address] Care Team Providers Name Role Phone Toi Insurance Hmo BHAVIN Oreilly Primary Care Provider Reason for Visit Reason Comments DME says she needs a new wheelch air Encounter Details Date Type Department Care Team Description 10/17/2019 Office Visit [facility] Pediatric Ara Monk to walk (Primary Dx); and Adult Primary MD Jung Hx of BKA, right; [place] [address] [address] [facility] Lumbar herniated disc; [facility] , [place], [place] Chronic bilateral low back pain with sciatica, sciatica laterality unspecified; [address] [phone] Chronic neck pain; [place], [place] [phone] Wheelchair dependence; [phone] Debility [phone] Allergies Active Allergy Reactions Severity Noted Date [...] (scale 4-6). oxymetazoline 0.05 % Use 1 [place] in 15 mL 0 09/18/2017 Active nasal spray each nostril 2 (two) times daily. DISCARD AFTER 3 DAYS. USE MAY BE ADDICTIVE AFTER 4 DAYS USE. promethazine-codeine Take 5 mL by mouth 120 mL 0 09/18/2017 Active 6.25-10 mg/5 mL syrup 4 (four) times daily as needed for Cough. 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 1. Help the person scoot to the edge of the chair. Be sure the persons feet are under his or her body. Lift as the person pushes up. 2. Keep the persons weaker knee between your legs. Pivot the person around in front of the toiletor chair. Lower him or her gently. [employer] last reviewed this educational content on 10/11/201719994199-3687 [address] [employer] [place] [address]. All rights reserved. This information is not [...] belt. Get help when you need it. [employer] last reviewed this educational content on 07/13/201719995206-3821 [employer] [place] [address]. All rights reserved. This information is not [...] need it. Ask to practice with supervision. [employer] last reviewed this educational content on 07/13/201719996508-[address] [employer] [place] [address]. All rights reserved. This information is not [...] she medicates with narcotic medication from her museum informatics specialist. Given her chronic pain and lack [...] oxymetazoline 0.05 % nasal spray Use 1 [place] in each nostril 2 (two) times daily. DISCARD AFTER 3 DAYS. USE MAY BE ADDICTIVE AFTER 4 DAYS USE. 15 mL 0 promethazine-codeine 6.25-10 mg/5 mL syrup Take 5 mL by mouth 4 (four) times daily as needed forCough. 120 mL 0 sod glqrd-iwaiyw-uqwsnk bottle (NEILMED SINUS RINSE COMPLETE) pkdv Use 1 Bottle in each nostril 2 (two) times daily. Use in hot shower 1 hour before bedtime 1 Each 0 Yzxbazrnsv-Zgpugmlvcebgy-Jquv (FIORICET) 50-300-40 mg per capsule Take 1 [...] file Gets together: Not on file Attends latter day service: Not on file Active member of [...] is the AVS which is accessible through [employer]. Patient/guardian/family verbalized understanding and agrees to the plan of care. Barriers to care:None. Ability to manage care: Good. Advanced care planning (living will) information was not given/offered to the patient to review for discussion at a future visit. If applicable, the [facility] database was accessed to review any controlled substance prescription claims data. If the patient is taking prescribed medications, the [employer] prescription claims data in [facility] was reviewed to assess patient compliance with [...] my care and that I had a "vady-os-kwmq" encounter withthis patient on 10/17/2019. The patient [...] Phone Addre ss Type Group [facility] STAR xxxxxxxxx 2018-Present Medicaid COMM PLAN - PLUS MANAGED MEDICAID (Work) [id number] documented as of this encounter
--- OUTSIDE RECORDS SUMMARY | 2019-11-06 01:16 | XMS REPORT | Summary of Care ---
:1975 Author Organization [facility] Address [address] [place] [address] Care Team Providers Name Role Phone Toi Insurance Hmo BHAVIN Oreilly Primary Care Provider Encounter Details Date Type Department Care Team Description 10/17/2019 Orders Only [facility] Doctor Unassigned, [address] [facility] [place] [address] [address] [place] [address] Allergies Active Allergy Reactions Severity Noted Date Comments Aspirin Hives 07/14/2005 Ciprofloxacin Hives 04/11/2017 Iodine And Iodide Containing Anaphylaxis 07/14/2005 Products Mushroom Other - See comments Low 06/12/2019 "pass o ut" Penicillin Hives 04/11/2017 Tramadol Other - See comments 03/08/2019 drowsin ess documented as of this encounter (statuses as of 10/27/2019) Medications Medication Sig Dispensed Refills Start Date [...] (scale 4-6). oxymetazoline 0.05 % Use 1 [place] in 15 mL 0 09/18/2017 Active nasal spray each nostril 2 (two) times daily. DISCARD AFTER 3 DAYS. USE MAY BE ADDICTIVE AFTER 4 DAYS USE. promethazine-codeine Take 5 mL by mouth 120 mL 0 09/18/2017 Active 6.25-10 mg/5 mL syrup 4 (four) times daily as needed for Cough. 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 documented as of this encounter (statuses as of 10/27/2019) Social History Tobacco Use Types Packs/Day Years [...] 0-64 YEARS COMBINED 11/08/1979 SERIES (1 of - PPSV23) EYE EXAM 11/08/1983 LDL-C 11/08/1983 URINE MICROALBUMIN 11/08/1983 DTaP,Tdap,and Td Vaccines ( - 1984 Tdap) FOOT EXAM 11/08/1991 PAP SMEAR 1994 Breast Cancer Screening 2013 (MAMMOGRAM) INFLUENZA VACCINE (#1) 2019 CREATININE (SERUM) 06/13/2020 06/13/2019, 05/16/2019, 03/09/2019, Additional history exists documented as of this encounter Procedures Procedure Name Priority Date/Time Associated Diagnosis Comme nts DME/SUPPLY JUSTIFICATION Routine 10/17/2019 12:01 AM CDT documented in this encounter Results Not on filedocumented in this encounter Insurance Payer Benefit Plan / Subscriber ID Effective Dates Phone Addre ss Type Group [facility] STAR xxxxxxxxx 2018-Present Medicaid COMM PLAN - PLUS MANAGED MEDICAID documented as of this encounter
--- OUTSIDE RECORDS SUMMARY | 2019-11-06 01:16 | XMS REPORT | Summary of Care ---
:1975 Author Organization [facility] Address [address] [place] [address] Care Team Providers Name Role Phone Toi Insurance Hmo BHAVIN Oreilly Primary Care Provider Reason for Visit Reason Comments DME says she needs a new wheelch air Encounter Details Date Type Department Care Team Description 10/17/2019 Office Visit [facility] Pediatric Ara Monk to walk (Primary Dx); and Adult Primary MD Jung Hx of BKA, right; [place] [address] [address] [facility] Lumbar herniated disc; [facility] , [place], [place] Chronic bilateral low back pain with sciatica, sciatica laterality unspecified; [phone] Chronic neck pain; [place], [place] [phone] Wheelchair dependence; [phone] Debility [phone] Allergies Active Allergy Reactions Severity Noted Date [...] (scale 4-6). oxymetazoline 0.05 % Use 1 [place] in 15 mL 0 09/18/2017 Active nasal spray each nostril 2 (two) times daily. DISCARD AFTER 3 DAYS. USE MAY BE ADDICTIVE AFTER 4 DAYS USE. promethazine-codeine Take 5 mL by mouth 120 mL 0 09/18/2017 Active 6.25-10 mg/5 mL syrup 4 (four) times daily as needed for Cough. 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 1. Help the person scoot to the edge of the chair. Be sure the persons feet are under his or her body. Lift as the person pushes up. 2. Keep the persons weaker knee between your legs. Pivot the person around in front of the toiletor chair. Lower him or her gently. [employer] last reviewed this educational content on 10/11/201719994596-4946 [employer] [address] [place] [address]. All rights reserved. This information is not [...] belt. Get help when you need it. [employer] last reviewed this educational content on 07/13/201719998362-1890 [employer] [address] [place] [address]. All rights reserved. This information is not [...] need it. Ask to practice with supervision. [employer] last reviewed this educational content on 07/13/201719994924-1797 [employer] [address] [place] [address]. All rights reserved. This information is not [...] presents with DME says she needs a new wheelchair HPI Barb Cortez is a 43 year [...] she medicates with narcotic medication from her health care marketing specialist. Given her chronic pain and lack [...] oxymetazoline 0.05 % nasal spray Use 1 [place] in each nostril 2 (two) times daily. DISCARD AFTER 3 DAYS. USE MAY BE ADDICTIVE AFTER 4 DAYS USE. 15 mL 0 promethazine-codeine 6.25-10 mg/5 mL syrup Take 5 mL by mouth 4 (four) times daily as needed forCough. 120 mL 0 sod gxjab-unjrnx-jtcjpb bottle (NEILMED SINUS RINSE COMPLETE) pkdv Use 1 Bottle in each nostril 2 (two) times daily. Use in hot shower 1 hour before bedtime 1 Each 0 Rbhwoefkwx-Lwpavpentyuzf-Mcpg (FIORICET) 50-300-40 mg per capsule Take 1 [...] file Gets together: Not on file Attends zoroastrian service: Not on file Active member of [...] is the AVS which is accessible through [employer]. Patient/guardian/family verbalized understanding and agrees to the plan of care. Barriers to care:None. Ability to manage care: Good. Advanced care planning (living will) information was not given/offered to the patient to review for discussion at a future visit. If applicable, the [facility] database was accessed to review any controlled substance prescription claims data. If the patient is taking prescribed medications, the [employer] prescription claims data in [facility] was reviewed to assess patient compliance [...] my care and that I had a "hxty-re-fgkv" encounter withthis patient on 10/17/2019. The patient [...] Effective Dates Phone Addre ss Type Group [facility] STAR xxxxxxxxx 2018-Present Medicaid COMM PLAN - PLUS MANAGED MEDICAID documented as of this encounter
--- OUTSIDE RECORDS SUMMARY | 2019-11-06 01:16 | XMS REPORT | Summary of Care ---
:1975 Author Organization [facility] [employer] Address [address] [place] [address] Care Team Providers Name Role Phone Toi Insurance Hmo BHAVIN Oreilly Primary Care Provider Reason for Visit Reason Comments Assessment Encounter Details Date Type Department Care Team Description 10/20/2019 Telephone [facility] Pediatric and Ara Rangel MD Assessment Adult Primary Care- [address] [place] [address] 146 [facility] , [phone] 205 [place] [phone] Allergies Active Allergy Reactions Severity Noted Date Comments Aspirin Hives 07/14/2005 Ciprofloxacin Hives 04/11/2017 Iodine And Iodide Containing Anaphylaxis 07/14/2005 Products Mushroom Other - See comments Low 06/12/2019 "pass o ut" Penicillin Hives 04/11/2017 Tramadol Other - See comments 03/08/2019 drowsin ess documented as of this encounter (statuses as of 10/20/2019) Medications Medication Sig Dispensed Refills Start Date [...] (scale 4-6). oxymetazoline 0.05 % Use 1 [place] in 15 mL 0 09/18/2017 Active nasal spray each nostril 2 (two) times daily. DISCARD AFTER 3 DAYS. USE MAY BE ADDICTIVE AFTER 4 DAYS USE. promethazine-codeine Take 5 mL by mouth 120 mL 0 09/18/2017 Active 6.25-10 mg/5 mL syrup 4 (four) times daily as needed for Cough. 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
--- OUTSIDE RECORDS SUMMARY | 2019-11-06 01:17 | XMS REPORT | Summary of Care ---
:1975 Author Organization [facility] Address [address] [place] [address] Care Team Providers Name Role Phone Toi Insurance Hmo BHAVIN Oreilly Primary Care Provider Reason for Visit Reason Comments Assessment Rx Concern/Question Encounter Details Date Type Department Care Team Description 11/03/2019 Telephone [facility] Family Josh Oreilly FNP Assessment; Rx Medicine - [place] [address] Concern/Question [address] [facility] Driv e [address] [phone] Allergies Active Allergy Reactions Severity Noted Date Comments Aspirin Hives 07/14/2005 Ciprofloxacin Hives 04/11/2017 Iodine And Iodide Containing Anaphylaxis 07/14/2005 Products Mushroom Other - See comments Low 06/12/2019 "pass o ut" Penicillin Hives 04/11/2017 Tramadol Other - See comments 03/08/2019 drowsin ess documented as of this encounter (statuses as of 11/03/2019) Medications Medication Sig Dispensed Refills Start Date [...] (scale 4-6). oxymetazoline 0.05 % Use 1 [place] in 15 mL 0 09/18/2017 Active nasal spray each nostril 2 (two) times daily. DISCARD AFTER 3 DAYS. USE MAY BE ADDICTIVE AFTER 4 DAYS USE. promethazine-codeine Take 5 mL by mouth 120 mL 0 09/18/2017 Active 6.25-10 mg/5 mL syrup 4 (four) times daily as needed for Cough. 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
--- OUTSIDE RECORDS SUMMARY | 2019-11-06 01:17 | XMS REPORT | Summary of Care ---
:1975 Author Organization [facility] [employer] Address [address] [place] [address] Care Team Providers Name Role Phone Toi Insurance Hmo BHAVIN Oreilly Primary Care Provider Reason for Visit Reason Comments Assessment Encounter Details Date Type Department Care Team Description 10/31/2019 Telephone [facility] Pediatric and Ara Rangel MD Assessment Adult Primary Care- [address] [place] [address] 146 [facility] , [address] [place] [address] Allergies Active Allergy Reactions Severity Noted Date Comments Aspirin Hives 07/14/2005 Ciprofloxacin Hives 04/11/2017 Iodine And Iodide Containing Anaphylaxis 07/14/2005 Products Mushroom Other - See comments Low 06/12/2019 "pass o ut" Penicillin Hives 04/11/2017 Tramadol Other - See comments 03/08/2019 drowsin ess documented as of this encounter (statuses as of 10/31/2019) Medications Medication Sig Dispensed Refills Start Date [...] (scale 4-6). oxymetazoline 0.05 % Use 1 [place] in 15 mL 0 09/18/2017 Active nasal spray each nostril 2 (two) times daily. DISCARD AFTER 3 DAYS. USE MAY BE ADDICTIVE AFTER 4 DAYS USE. promethazine-codeine Take 5 mL by mouth 120 mL 0 09/18/2017 Active 6.25-10 mg/5 mL syrup 4 (four) times daily as needed for Cough. 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
--- OUTSIDE RECORDS SUMMARY | 2019-11-06 01:18 | XMS REPORT | Summary of Care ---
:1975 Author Organization [facility] [employer] Address [address] [place] [address] Care Team Providers Name Role Phone Toi Insurance Hmo BHAVIN Oreilly Primary Care Provider Reason for Visit Reason Comments Assessment Encounter Details Date Type Department Care Team Description 11/03/2019 Telephone [facility] Pediatric and Ara Rangel MD Assessment Adult Primary Care- [address] [place] [address] 146 [facility] , [address] [place] [phone] Allergies Active Allergy Reactions Severity Noted [...] (scale 4-6). oxymetazoline 0.05 % Use 1 [place] in 15 mL 0 09/18/2017 Active nasal spray each nostril 2 (two) times daily. DISCARD AFTER 3 DAYS. USE MAY BE ADDICTIVE AFTER 4 DAYS USE. promethazine-codeine Take 5 mL by mouth 120 mL 0 09/18/2017 Active 6.25-10 mg/5 mL syrup 4 (four) times daily as needed for Cough. sod Use 1 Bottle in 1 Each 0 09/18/2017 Act yari ggxae-yxgjem-qetbho each nostril 2 bottle (NEILMED SINUS (two) [...] (two) times creamIndications: daily. Candidal skin infection ibuprofen 800 mg Take 1 tablet by 21 tablet 0 06/13/2019 Active tabletIndications: mouth every 8 Cellulitis of left (eight) hours as lower extremity needed for Pain (scale 4-6). ondansetron 4 mg TAKE 1 TABLET BY 0 08/08/2019 Active tablet MOUTH EVERY 4 HOURS NEEDED FOR NAUSEA sumatriptan succinate Take by mouth. 0 Active (IMITREX ORAL) Bismuth Subsalicylate Take 1 tablet by 30 tablet 0 11/03/2019 Active (PEPTO-BISMOL) 262 mg mouth 4 (four) tabletIndications: times daily as Diarrhea, unspecified needed (diarrhea). type acetaminophen 650 mg Take 1 tablet by 20 tablet 0 11/03/2019 Active CR tabletIndications: mouth every 8 Sore throat (eight) hours as needed for Pain or Fever. nystatin/maalox/diphe Take 5 mL by mouth 120 mL 0 0 Active nhydrAMINE/lidocaine 4 (four) times 2 % viscous 1:1:1:1 daily as needed Susp (Sore Throat). suspensionIndications Gargle and spit, : Sore throat do not swallow fluticasone Use 1 [place] in 16 g 0 11/03/2019 Ac tive propionate 50 each nostril mcg/actuation nasal daily. sprayIndications: Nasal congestion documented as of this encounter (statuses as of 11/03/2019) Active Problems Problem Noted Date Sore throat 11/03/2019 Nasal congestion 11/03/2019 Suspected Covid-19 Virus Infection 11/03/2019 Diarrhea, unspecified type 11/03/2019 Hx of BKA, right 10/17/2019 Migraine without status migrainosus, not intractable, unspecified migraine 08/25/2019 type Chronic low back pain without sciatica, unspecified ba ck pain laterality 08/25/2019 Hx of bipolar disorder 08/25/2019 Lumbar herniated disc 08/25/2019 Type 2 diabetes mellitus with other specified complica tion, with long-term 08/25/2019 current use of insulin Abdominal pain 07/14/2005 Overview: ICD10 Diagnosis 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 STAR xxxxxxxxx 2018-Present Medicaid COMM PLAN - PLUS MANAGED MEDICAID documented as of this encounter
--- OUTSIDE RECORDS SUMMARY | 2019-11-06 01:18 | XMS REPORT | Summary of Care ---
:1975 Author Organization [facility] - [facility] Address [address] [place] [id number] Care Team Providers Name Role Phone Toi Insurance Hmo BHAVIN Oreilly Primary Care Provider Reason for Visit Reason Comments Sore Throat X 1 week NASAL DRAINAGE X 1 week Nausea X 1 week Diarrhea X 1 week Vomiting X 1 week Headache X 1 week Encounter Details Date Type Department Care Team Description 11/03/2019 Urgent Care [facility] Family Josh Oreilly FNP [address] [address] Diarrhea, unspecified type (Primary Dx); [place] [id number], Acute Care Clinic Sore throat; [facility] Nasal congestion; [place], [place] Suspected Covid -19 Virus Infection [id number] Allergies Active Allergy Reactions Severity Noted Date Comments Aspirin Hives 07/14/2005 Ciprofloxacin Hives 04/11/2017 Iodine And Iodide Containing Anaphylaxis 07/14/2005 Products Mushroom Other - See comments Low 06/12/2019 "pass o ut" Penicillin Hives 04/11/2017 Tramadol Other - See comments 03/08/2019 drowsin ess documented as of this encounter (statuses as of 11/03/2019) Medications Medication Sig Dispensed Refills Start End Status Date Date ondansetron 4 mg Take 1 tablet by 20 tablet 0 Active disintegrating mouth every 4 7 tablet (four) hours as needed for Nausea and Vomiting (N/V). Butalbital-Acetamin Take 1 capsule 20 capsule 0 Active ophen-Caff by mouth every 6 7 (FIORICET) (six) hours as 50-300-40 mg per needed for Pain capsule (scale 4-6). oxymetazoline 0.05 Use 1 [place] in 15 mL 0 Active % nasal spray each nostril 2 8 (two) times daily. DISCARD AFTER 3 DAYS. USE MAY BE ADDICTIVE AFTER 4 DAYS USE. promethazine-codein Take 5 mL by 120 mL 0 Active e 6.25-10 mg/5 mL mouth 4 (four) 8 syrup times daily as needed for Cough. sod Use 1 Bottle in 1 Each 0 Acti ve zcgqe-tdpimz-lrczfk each nostril 2 8 bottle (NEILMED (two) times SINUS RINSE daily. Use in COMPLETE) pkdv hot shower 1 hour before bedtime loratadine 10 mg Take 1 tablet by 30 tablet 0 Active tablet mouth daily. 8 cyclobenzaprine 5 Take 1 tablet by 30 tablet 0 Active mg tablet mouth 3 (three) 8 times daily. ondansetron 4 mg Take 1 tablet by 20 tablet 0 Active disintegrating mouth every 8 8 tablet (eight) hours as needed for Nausea and Vomiting (N/V). omeprazole 40 mg Take 40 mg by 0 Active capsule mouth daily. FLUoxetine 60 mg Take by mouth. 0 Active tablet atorvastatin 40 mg Take 40 mg by 0 Active tablet mouth at bedtime. metFORMIN 1,000 mg Take 1,000 mg by 0 Active tablet mouth 2 (two) times daily with meals. amitriptyline 100 Take 100 mg by 0 Active mg tablet mouth at bedtime. Polyethylene Glycol Take 1 Packet by 5 Packet 0 Active 3350 (MIRALAX) 17 mouth daily. 9 gram powderIndications: Constipation, unspecified constipation type lactulose 10 Take 30 mL by 1 Bottle 0 Act yari gram/15 mL oral mouth 3 (three) 9 solutionIndications times daily as : Constipation, needed for unspecified Constipation or constipation type For bowel movement. Nitrofurantoin&Nit. Take 1 capsule 10 capsule 0 Active Macrocryst by mouth 2 (two) 9 (MACROBID) 100 mg times daily. capsuleIndications: Nonintractable headache, unspecified chronicity pattern, unspecified headache type, Hyperglycemia, Urinary tract infection without hematuria, site unspecified clindamycin 300 mg Take 1 capsule 21 capsule 0 Active capsuleIndications: by mouth 3 9 Toothache (three) times daily. acetaminophen-codei Take 2 tablets 24 tablet 0 Active ne (TYLENOL-CODEINE by mouth every 6 9 #3) 300-30 mg (six) hours as tabletIndications: needed for Pain Toothache (scale 7-10). clotrimazole-betame Apply to 15 g 0 Active thasone (LOTRISONE) area(s) 2 (two) 9 creamIndications: times daily. Candidal skin infection ibuprofen 800 mg Take 1 tablet by 21 tablet 0 Active tabletIndications: mouth every 8 9 Cellulitis of left (eight) hours as lower extremity needed for Pain (scale 4-6). ondansetron 4 mg TAKE 1 TABLET BY 0 Active tablet MOUTH EVERY 4 0 HOURS NEEDED FOR NAUSEA sumatriptan Take by mouth. 0 Ac tive succinate (IMITREX ORAL) Bismuth Take 1 tablet by 30 tablet 0 Act yari Subsalicylate mouth 4 (four) 0 (PEPTO-BISMOL) 262 times daily as mg needed tabletIndications: (diarrhea). Diarrhea, unspecified type acetaminophen 650 Take 1 tablet by 20 tablet 0 Active mg CR mouth every 8 0 tabletIndications: (eight) hours as Sore throat needed for Pain or Fever. nystatin/maalox/dip Take 5 mL by 120 mL 0 Active henhydrAMINE/lidoca mouth 4 (four) 0 ine 2 % viscous times daily as 1:1:1:1 Susp needed (Sore suspensionIndicatio Throat). Gargle ns: Sore throat and spit, do not swallow fluticasone Use 1 [place] in 16 g 0 Act yari propionate 50 each nostril 0 mcg/actuation nasal daily. sprayIndications: Nasal congestion doxycycline 100 mg Take 1 capsule 14 capsule 0 11/02 Discontinued capsuleIndications: by mouth 2 (two) 9 020 (Therapy Cellulitis of left times daily. 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 encounter (statuses [...] Sign Reading Time Taken Comments Blood Pressure 129/78 11/03/2019 3:00 PM CDT Pulse 82 11/03/2019 3:00 PM CDT Temperature 37 C (98.6 F) 11/03/2019 3:00 PM CDT Respiratory Rate 16 11/03/2019 3:00 PM CDT Oxygen Saturation 98% 11/03/2019 3:00 PM CDT Inhaled Oxygen Concentration - - Weight 61.2 kg (135 lb) 11/03/2019 3:00 PM CDT per pat ient Height 144.8 cm (4' 9") 11/03/2019 3:00 PM CDT Body Mass Index 29.21 11/03/2019 3:00 PM CDT documented in this encounter Patient Instructions Patient InstructionsEdMele crocker MD - 11/03/2019 1:40 PM CDTSelf Care Guideline pending COVID-19 Screen Result - Increase fluid intake - Self quarantine until otherwise instructed - Call clinic/911 or go to ER should symptoms worsen or fail to improve - Sipping on warm water with lemon juice is effective at helping clear post nasal drip from back of throat -Turn on hot shower water, close the bathroom door, sit down, and inhale the steam -Use a vaporizer/humidifier to increase humidity in rooms -Use Tylenol as directed on bottle for pain/fever. - Joselyn [place] Day/Night Cold and Flu Severe is a good multi symptom cold medication, however do nottake extra Tylenol in addition to these. -Sipping hot water or warm drinks may be more soothing to the nasal passages than ice cold drinks. -Avoid extremely cool and dry air. -Nasal saline rinses may provide temporary relief of congestion and help remove post nasal drip fromback of throat (use distilled water only) -Drinking 8 or more 8-oz glasses of water, juice, or noncaffeinated beverages daily may help to thinmucous secretions and replace fluid losses. -Home-care measures to relieve throat symptoms include warm saline gargles, which may reduce associated edema; lozenges; popsicles; and cold and slushy beverages. -An upright or semiupright posture, such as sleeping with the head and shoulders raised, may decrease cough related to pharyngeal secretions. documented in this encounter Progress Notes Mele Méndez MD - 11/03/2019 1:40 PM CDT Cc: Chief Complaint Patient presents with Sore Throat X 1 week NASAL DRAINAGE X 1 week Nausea X 1 week Diarrhea X 1 week Vomiting X 1 week Headache X 1 week Barb Cortez is a 43 year old female c/o SOTOMAYOR, congestion, nasal drainage, sore throat, nause and loose stools for 1 week. Patient reports she has been at home since the pandemic, denies known sick contact. Patient lives at home with her who works at a grocery store, and also presents with Sx loose stools. Patient denies recent travel, domestic or international. Patient has DM, on a wheel chair s/p Right BKA, notes she is on insulin and metformin, reports she was recently hospitalized at external facility ([facility]), and completed blood work there. Patient is stable, denies CP, palpitations or SOB Allergies Barb is allergic to aspirin; ciprofloxacin; ivp dye [iodine and iodide containing products]; penicillin; tramadol; and mushroom. Medications Outpatient Medications Prior to Visit Medication Sig Dispense Refill sumatriptan succinate (IMITREX ORAL) Take by mouth. ondansetron 4 mg disintegrating tablet Take 1 tablet by mouth every 4 (four) hours as needed forNausea and Vomiting (N/V). 20 tablet 0 ondansetron 4 mg tablet TAKE 1 TABLET BY MOUTH EVERY 4 HOURS NEEDED FOR NAUSEA HYDROcodone-acetaminophen 10-325 mg tablet TAKE BY MOUTH 1 TABLET 3 TIMES A DAY NEEDED ibuprofen 800 mg tablet Take 1 tablet by mouth every 8 (eight) hours as needed for Pain (scale 4-6). 21 tablet 0 doxycycline 100 mg capsule Take 1 capsule by mouth 2 (two) times daily. 14 capsule 0 clotrimazole-betamethasone (LOTRISONE) cream Apply to area(s) [...] oxymetazoline 0.05 % nasal spray Use 1 [place] in each nostril 2 (two) times daily. DISCARD AFTER 3 DAYS. USE MAY BE ADDICTIVE AFTER 4 DAYS USE. 15 mL 0 promethazine-codeine 6.25-10 mg/5 mL syrup Take 5 mL by mouth 4 (four) times daily as needed forCough. 120 mL 0 sod yhbiz-fuomwx-lzkukj bottle (NEILMED SINUS RINSE COMPLETE) pkdv Use 1 Bottle in each nostril 2 (two) times daily. Use in hot shower 1 hour before bedtime 1 Each 0 Okxgrjbzlx-Penquknzmtpfc-Mzob (FIORICET) 50-300-40 mg per capsule Take 1 capsule by mouth every 6 (six) hours as needed for Pain (scale 4-6). 20 capsule 0 No facility-administered medications prior to visit. [...] file Gets together: Not on file Attends anglican service: Not on file Active member of [...] No pertinent family history. Review of Systems HENT: Positive for congestion, rhinorrhea and sore throat. Respiratory: Negative for cough and shortness of breath. Cardiovascular: Negative for chest pain and palpitations. Gastrointestinal: Positive for diarrhea and vomiting. Neurological: Positive for headaches. Vital Signs BP 129/78 | Pulse 82 | Temp 37 C (98.6 F) (Oral) | Resp 16 | Ht 4' 9" (1.448 m) | Wt 135 lb(61.2 kg) | SpO2 98% | BMI 29.21 kg/m Physical Exam Constitutional: She is oriented to person, place, and time. No distress. HENT: Head: Normocephalic and atraumatic. Nose: Mucosal edema and rhinorrhea present. Mouth/Throat: Posterior oropharyngeal edema and posterior oropharyngeal erythema present. Tonsils are 2+ on the right. Tonsils are 2+ on the left. Eyes: Pupils are equal, round, and reactive to light. EOM are normal. Neck: Normal range of motion. Neck supple. Cardiovascular: Normal rate, regular rhythm and normal heart sounds. Pulmonary/Chest: Effort normal and breath sounds normal. No respiratory distress. Abdominal: Soft. Bowel sounds are normal. She exhibits no distension. There is no tenderness. Musculoskeletal: Normal range of motion. Right BKA, wheelchair bound Neurological: She is alert and oriented to person, place, and time. Skin: Skin is warm and dry. Psychiatric: She has a normal mood and affect. Her behavior is normal. Nursing note and vitals reviewed. Assessment/Plan Sore throat - Conservative management - POCT GRP A STREP (MOLECULAR): negative - acetaminophen 650 mg CR tablet; Take 1 tablet by mouth every 8 (eight) hours as needed for Pain orFever. Dispense: 20 tablet; Refill: 0 - nystatin/maalox/diphenhydrAMINE/lidocaine 2 % viscous 1:1:1:1 Susp suspension; Take 5 mL by mouth 4 (four) times daily as needed (Sore Throat). Gargle and spit, do not swallow Dispense: 120 mL; Refill: 0 Diarrhea, unspecified type - dietary modification discussed. Advised to maintain good hydration - Bismuth Subsalicylate (PEPTO-BISMOL) 262 mg tablet; Take 1 tablet by mouth 4 (four) times daily asneeded (diarrhea). Dispense: 30 tablet; Refill: 0 - CORONAVIRUS COVID-19 TESTING; Future Nasal congestion - Possible allergic etiology - fluticasone propionate 50 mcg/actuation nasal spray; Use 1 [place] in each nostril daily. Dispense:16 g; Refill: 0 Preventive Care: Medication reconciliation, patient education and anticipatory guidance completed. All questions and concerns addressed. AVS given, handout on Self Care Guideline pending COVID-19 Screen Result provided. Return if symptoms worsen or fail to improve. Mele Méndez MD, MPH, AAKYVS Field Training Manager, Department of Family Medicine [facility] [address] [place] [address] [phone] [place] [address] Office: 11/03/2019 3:25 PM documented in this encounter Plan of Treatment Name Type Priority Associated Diagnoses Date/Ti me CORONAVIRUS COVID-19 LAB Routine Suspected Covid-19 V irus 11/03/2019 3:04 PM TESTING Infection CDT Name Type Priority Associated Diagnoses Order S chedule CORONAVIRUS COVID-19 LAB Routine Suspected Covid-19 V irus Expected: 11/03/2019, TESTING Infection Expires: 2020 Health Maintenance Due Date Last Done Comments [...] Name Priority Date/Time Associated Diagnosis Comme nts POCT GRP A STREP Routine 11/03/2019 3:20 PM Sore throat Resu lts for this (MOLECULAR) CDT procedure are i n the results section. documented in this encounter Results POCT GRP A STREP (MOLECULAR) (11/03/2019 3:20 PM CDT) Pathologist Sig nature POCT GP A STREP negative Negative - Negative Specimen Swab - THROAT documented in this encounter Visit Diagnoses Diagnosis Diarrhea, unspecified type - Primary Sore throat Acute pharyngitis Nasal congestion Other diseases of nasal cavity and sinus es Suspected Covid-19 Virus Infection documented in this encounter Insurance Payer Benefit Plan / Subscriber ID Effective Dates Phone Addre ss Type Group [facility] xxxxxxxxx 2018-Present Medicaid COMM PLAN - PLUS MANAGED MEDICAID (Work) [id number] documented as of this encounter
--- OUTSIDE RECORDS SUMMARY | 2019-11-06 01:19 | XMS REPORT | Summary of Care ---
:1975 Author Organization [facility] Address [address] [place] [address] Care Team Providers Name Role Phone Toi Insurance Hmo BHAVIN Oreilly Primary Care Provider Reason for Visit Reason Comments Results Encounter Details Date Type Department Care Team Description 11/04/2019 Telephone [facility] Family Medicine Mele Jin MD Results - [address] [facility] [address] [place] [address] [place] [address] [phone] Allergies Active Allergy Reactions Severity Noted Date Comments Aspirin Hives 07/14/2005 Ciprofloxacin Hives 04/11/2017 Iodine And Iodide Containing Anaphylaxis 07/14/2005 Products Mushroom Other - See comments Low 06/12/2019 "pass o ut" Penicillin Hives 04/11/2017 Tramadol Other - See comments 03/08/2019 drowsin ess documented as of this encounter (statuses as of 11/04/2019) Medications Medication Sig Dispensed Refills Start Date [...] (scale 4-6). oxymetazoline 0.05 % Use 1 [place] in 15 mL 0 09/18/2017 Active nasal spray each nostril 2 (two) times daily. DISCARD AFTER 3 DAYS. USE MAY BE ADDICTIVE AFTER 4 DAYS USE. promethazine-codeine Take 5 mL by mouth 120 mL 0 09/18/2017 Active 6.25-10 mg/5 mL syrup 4 (four) times daily as needed for Cough. sod Use 1 Bottle in 1 Each 0 09/18/2017 Act yari isulh-fzhbwd-saldoo each nostril 2 bottle (NEILMED SINUS (two) [...] throat do not swallow fluticasone Use 1 [place] in 16 g 0 11/03/2019 Ac tive propionate 50 each nostril mcg/actuation nasal daily. 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
[2019-11-06] MEDS ORDERED: FENTANYL CITR 100 MCG/2 ML ONE (01:51)
[2019-11-06] MEDS ORDERED: INSULIN -REGULAR HUMAN 50 UNIT/0.5 ML ML ONE (01:56)
[2019-11-06 01:58] LABS: Absolute Lymphocytes (CBC) 3.2 K/uL (0.7-4.9); Basophils % 0.8 % (0-1.3); Hematocrit 44.1 % (36.0-45.0); MPV 7.7 fL (7.6-11.3); RBC Red Blood Cell Count 5.36 M/uL (3.86-4.86)
[2019-11-06] MEDS ORDERED: NA CHLORIDE 0.9% 1,000 ML ONE (01:59)
[2019-11-06 02:13] LABS: Potassium 3.9 mmol/L (3.5-5.1)
--- NOTE | 2019-11-06 03:08 | ER ---
Nurse's Notes [facility] Name: Barb Cortez Age: 43 yrs Sex: Female : 1975 Arrival Date: 11/06/2019 Time: 01:09 Bed 6 Private MD: Diagnosis: Diabetes mellitus due to underlying condition with hyperglycemia;Pain in left hip-from fall;Low back pain-from fall;Fall on same level from slipping, tripping and stumbling Presentation: 11/05 01:12 Chief complaint: Patient states: "I was going to sit in the seat that is on the side of the bathtub but didn't realize my daughter took it off, when I sat I went straight down and my leg twisted, it felt like I pulled muscles.". Coronavirus screen: Proceed with normal triage. Ebola Screen: No symptoms or risks identified at this time. Initial Sepsis Screen: Does the patient meet any 2 criteria? No. Patient's initial sepsis screen is negative. Does the patient have a suspected source of infection? No. Patient's initial sepsis screen is negative. Risk Assessment: Do you want to hurt yourself or someone else? Patient reports no desire to harm self or others. Onset of symptoms was November 04, 2019. Care prior to arrival: Glucose check: 480. 01:12 Method Of Arrival: EMS: [facility] vc 01:12 Acuity: HARI 3 vc Triage Assessment: :27 General: Appears in no apparent distress. uncomfortable, Behavior is calm, cooperative, vc appropriate for age. Pain: Complains of pain in left hip Pain radiates to left knee. Historical: - Allergies: 01:22 Aspirin; vc 01:22 Benadryl; vc 01:22 Ciprofloxacin; vc 01:22 IV contrast; vc 01:22 PENICILLINS; vc 01:22 Tramadol HCl; vc - Home Meds: : Lantus 100 unit/mL Sub-Q soln [Active]; metformin 1,000 mg Oral tab 1 tab 2 times per vc day [Active]; : Lexapro 20 mg Oral tab 1 tab nightly [Active]; Abilify 40 mg oral tab once daily vc [Active]; Humulin 70/30 100 unit/mL (70-30) Sub-Q susp [Active]; - PMHx: 01:26 Bipolar disorder; Depression; Diabetes - IDDM; Hyperlipidemia; Hypertension; Kidney vc stones; Migraines; - Immunization history:: Adult Immunizations up to date. - Social history:: Smoking status: Patient reports the use of cigarette tobacco products, smokes one-half pack cigarettes per day. Screenin:27 Abuse screen: Denies threats or abuse. Nutritional screening: No deficits noted. vc Tuberculosis screening: No symptoms or risk factors identified. Fall Risk Fall in past 12 months (25 points). No secondary diagnosis (0 pts). IV access (20 points). Ambulatory Aid- Crutches/Cane/Walker (15 pts). Gait- Impaired (20 pts.). Mental Status- Oriented to own ability (0 pts). Total [place] Fall Scale indicates High Risk Score (45 or more points). Side Rails Up X 2 Placed Close to Nursing Station Frequent Obs/Assessments Occuring. Assessment: 01:58 General: Appears in no apparent distress. uncomfortable, Behavior is calm, cooperative, vc appropriate for age. Pain: Complains of pain in left hip Pain radiates to left leg. Neuro: Level of Consciousness is awake, alert, obeys commands, Oriented to person, place, time, situation. Cardiovascular: Capillary refill < 3 seconds Patient's skin is warm and dry. Respiratory: Respiratory effort is even, unlabored, Respiratory pattern is regular, symmetrical. GI: No signs and/or symptoms were reported involving the gastrointestinal system. : No signs and/or symptoms were reported regarding the genitourinary system. Derm: Skin temperature is warm. Musculoskeletal: Amputation of right BKA. 02:01 Reassessment: Patient to x-ray via wheelchair. vc Vital Signs: 01:12 BP 137 / 73; Pulse 82; Resp 17; Temp 99.2; Pulse Ox 100% on R/A; Weight 64.86 kg; vc Height 4 ft. 9 in. (144.78 cm); 01:12 Body Mass Index 30.94 (64.86 kg, 144.78 cm) vc ED Course: 01:09 Patient arrived in ED. sg 01:10 Crescencio Storey PA is PHCP. cp 01:10 Lamberto Knox MD is Attending Physician. cp 01:12 Geneva Acosta RN is Primary Nurse. vc 01:20 Triage completed. vc 01:29 Arm band placed on. vc 01:29 Call light in reach. Side rails up X2. Pulse ox on. NIBP on. vc 02:04 Inserted saline lock: 22 gauge in right antecubital area, using aseptic technique. vc Blood collected. 02:11 Primary Nurse role handed off by Geneva Acosta, MARIA ALEJANDRA sg 02:11 Cheng Pabon, RN is Primary Nurse. sg 02:24 XRAY Pelvis In Process Unspecified. EDMS 02:24 Femur Left XRAY In Process Unspecified. EDMS 02:26 XRAY Lumbar Spine (3 Views) In Process Unspecified. EDMS 03:05 Rajiv Pa DO is Referral Physician. cp Administered Medications: 01:54 Drug: fentaNYL (PF) 25 mcg Route: IVP; Site: right antecubital; vc 02:00 Drug: NS 0.9% 1000 ml Route: IV; Rate: 1 bolus; Site: right antecubital; vc 02:05 Drug: Insulin Regular Human 10 units {Co-Signature: (Geneva Acosta RN).} Route: sg IVP; Site: right antecubital; Outcome: 03:07 Discharge ordered by . cp 03:52 Patient left the ED. sg Signatures: Dispatcher [employer] Cheng Huerta RN RN sg Page, Corey, PA PA Geneva Love RN RN vc Vanessa Calcote RN vc
--- NOTE | 2019-11-06 03:08 | EDPHYS ---
Physician Documentation [facility] Name: Barb Cortez Age: 43 yrs Sex: Female : 1975 Arrival Date: 11/06/2019 Time: 01:09 Bed 6 Private MD: ED Physician Lamberto Knox HPI: 11/05 01:11 This 43 yrs old Female presents to ER via Unassigned with complaints of Hip cp Pain. 01:11 The patient or guardian reports pain. cp 01:11 that occurred at home, sustained from a fall, from a standing position, There is no cp obvious deformity, The patient is able to ambulate with assistance. Patient is not able to bear weight. The patient's discomfort radiates to the left upper leg. The complaints affect the left hip. Associated signs and symptoms: Pertinent positives: weakness, numbness of left leg, low back pain, of the left leg, Pertinent negatives: abdominal pain, incontinence. Historical: - Allergies: 01:22 Aspirin; vc 01:22 Benadryl; vc 01:22 Ciprofloxacin; vc 01:22 IV contrast; vc 01:22 PENICILLINS; vc 01:22 Tramadol HCl; vc - Home Meds: 01:22 Lantus 100 unit/mL Sub-Q soln [Active]; metformin 1,000 mg Oral tab 1 tab 2 times per vc day [Active]; :26 Lexapro 20 mg Oral tab 1 tab nightly [Active]; Abilify 40 mg oral tab once daily vc [Active]; Humulin 70/30 100 unit/mL (70-30) Sub-Q susp [Active]; - PMHx: 01:26 Bipolar disorder; Depression; Diabetes - IDDM; Hyperlipidemia; Hypertension; Kidney vc stones; Migraines; - Immunization history:: Adult Immunizations up to date. - Social history:: Smoking status: Patient reports the use of cigarette tobacco products, smokes one-half pack cigarettes per day. ROS: 01:15 Back: Positive for pain at rest, pain with movement, of the low back. cp 01:15 Constitutional: Negative for body aches, chills, fever. cp 01:15 Neck: Negative for pain with movement, pain at rest, stiffness. 01:15 Cardiovascular: Negative for chest pain. 01:15 Respiratory: Negative for cough, shortness of breath. 01:15 Abdomen/GI: Negative for abdominal pain. 01:15 MS/extremity: Positive for pain, paresthesias, of the left hip and left leg, Negative for deformity. 01:15 All other systems are negative. Exam: 01:25 Constitutional: The patient appears in no acute distress, alert, awake, non-toxic, well cp developed, well nourished. 01:25 Head/Face: Normocephalic, atraumatic. cp 01:25 Eyes: Periorbital structures: appear normal, Conjunctiva: normal, no exudate, no injection, Lids and lashes: appear normal, bilaterally. 01:25 ENT: External ear(s): are unremarkable, Nose: is normal, Mouth: Lips: moist, Oral mucosa: pink and intact, moist, Posterior pharynx: is normal, airway is patent. 01:25 Chest/axilla: Inspection: normal, Palpation: is normal, no crepitus, no tenderness. 01:25 Cardiovascular: Rate: normal, Rhythm: regular, Edema: is not appreciated, JVD: is not appreciated. 01:25 Respiratory: the patient does not display signs of respiratory distress, Respirations: normal, no use of accessory muscles, labored breathing, is not present. 01:25 Abdomen/GI: Inspection: abdomen appears normal, Palpation: abdomen is soft and non-tender, in all quadrants. 01:25 Back: pain, that is moderate, of the lumbar area, ROM is painful, with all movement. 01:25 Musculoskeletal/extremity: Extremities: grossly normal except: noted in the left hip and left upper leg: pain, tenderness, There is no evidence of deformity, ROM: limited passive range of motion due to pain, in the left hip, Perfusion: the extremity is normally perfused throughout, the left foot decreased sensation, right below knee amputation. Vital Signs: 01:12 BP 137 / 73; Pulse 82; Resp 17; Temp 99.2; Pulse Ox 100% on R/A; Weight 64.86 kg; vc Height 4 ft. 9 in. (144.78 cm); 01:12 Body Mass Index 30.94 (64.86 kg, 144.78 cm) vc MDM: 01:14 Patient medically screened. cp 01:30 Differential diagnosis: hip fracture, femoral neck fracture, femoral shaft fracture, cp lumbar spine fracture, DKA. 02:41 Test interpretation: by ED physician or midlevel provider: xray of pelvis negative for cp fracture, xrays of l-spine negative for acute fracture and xrays of left femur negative for acute fracture. 03:02 ED course: [place] prescription monitoring program website shows narcotic score of 260 cp and sedative score of 160. 03:05 Data reviewed: vital signs, nurses notes, lab test result(s), radiologic studies, plain cp films, and as a result, I will discharge patient. 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 Response to treatment: the patient's symptoms have markedly improved after treatment, VSS. Pain improved, and as a result, I will discharge patient. 11/05 01:13 Order name: CBC with Diff; Complete Time: 02:19 cp 11/05 02:19 Interpretation: Normal except: RBC 5.36; EOSINOPHIL % 4.5. cp 11/05 01:13 Order name: BMP; Complete Time: 02:19 cp 11/05 02:19 Interpretation: Normal except: NA 135; CL 97; GLUC 471; GFR 64. cp 11/05 01:13 Order name: XRAY Pelvis; Complete Time: 16:04 cp 11/05 01:13 Order name: Femur Left XRAY; Complete Time: 16:04 cp 11/05 01:53 Order name: Glucose, Ancillary Testing; Complete Time: 02:19 EDMS 11/05 03:32 Order name: Glucose, Ancillary Testing; Complete Time: 16:04 EDMS 11/05 01:13 Order name: XRAY Lumbar Spine (3 Views); Complete Time: 16:04 cp 11/05 01:13 Order name: IV; Complete Time: 01:42 cp 11/05 01:13 Order name: Accucheck Blood Glucose; Complete Time: 01:42 cp Administered Medications: 01:54 Drug: fentaNYL (PF) 25 mcg Route: IVP; Site: right antecubital; vc 02:00 Drug: NS 0.9% 1000 ml Route: IV; Rate: 1 bolus; Site: right antecubital; vc 02:05 Drug: Insulin Regular Human 10 units {Co-Signature: (Geneva Acosta RN).} Route: sg IVP; Site: right antecubital; Disposition: 03:10 Chart complete. cp 03:54 Co-signature as Attending Physician, Lamberto Knox MD. [email or web address] Disposition: 11/06/19 03:07 Discharged to Home. Impression: Diabetes mellitus due to underlying condition with hyperglycemia, Pain in left hip - from fall, Low back pain - from fall, Fall on same level from slipping, tripping and stumbling. - Condition is Stable. - Discharge Instructions: Back Pain, Adult, Blood Glucose Monitoring, Adult, Diabetes Mellitus and Food, Hip Pain, Heat Therapy. - Prescriptions for Tylenol- Codeine #3 300-30 mg Oral Tablet - take 2 tablets by ORAL route every 6 hours As needed no driving while taking medication; 20 tablet. Cyclobenzaprine 10 mg Oral Tablet - take 1 tablet by ORAL route every 8 hours As needed no driving while taking medication; 20 tablet. - Medication Reconciliation Form, Thank You Letter, Antibiotic Education, Prescription Opioid Use form. - Follow up: Rajiv Pa DO; When: 1 - 2 days; Reason: pain medication refill. - Problem is new. - Symptoms have improved. Signatures: Dispatcher [employer] EDMS Cheng Pabon RN Lamberto Magana MD MD [email or web address] Valdez PA PA cp Calcote, Vanessa, RN RN vc Vanessa Calcote RN vc Corrections: (The following items were deleted from the chart) 03:52 03:07 11/06/2019 03:07 Discharged to Home. Impression: Diabetes mellitus due to sg underlying condition with hyperglycemia; Pain in left hip - from fall; Low back pain - from fall; Fall on same level from slipping, tripping and stumbling. Condition is Stable. Forms are Medication Reconciliation Form, Thank You Letter, Antibiotic Education, Prescription Opioid Use. Follow up: Rajiv Pa; When: 1 - 2 days; Reason: pain medication refill. Problem is new. Symptoms have improved. cp
[2019-11-06 04:00] VITALS: BP 137/73; TEMP 99.2; O2SAT 100
--- NOTE | 2019-11-06 09:37 | RAD REPORT ---
EXAM DESCRIPTION: RAD - Pelvis - 11/06/2019 2:23 am CLINICAL HISTORY: fall 2 days ago, left hip pain COMPARISON: No comparisonsNone. TECHNIQUE: AP imaging of the pelvis was obtained. FINDINGS: No fracture of the bony pelvis. No fracture, dislocation or other acute hip joint finding. No significant SI joint findings. No soft tissue abnormality. IUD is seen in the left side of the pelvis. Surgical clips are seen in th e lower right abdomen. IMPRESSION: Negative pelvis for acute or significant findings.
--- NOTE | 2019-11-06 09:38 | RAD REPORT ---
EXAM DESCRIPTION: RAD - Lumbar Spine 3 Views - 11/06/2019 2:26 am CLINICAL HISTORY: fall 2 days ago;Pain COMPARISON: No comparisons FINDINGS: A three-view lumbar spine examination was performed. Lumbar bodies are normal in height and alignment. No fracture or acute bony process seen. No disc spa ce narrowing. No other significant findings. No pars defects identified. IMPRESSION: Negative Lumbar Spine examination. Concerns for disc herniation, central canal abnormality or occult bone process can be addressed with MR imaging.
--- NOTE | 2019-11-06 09:38 | RAD REPORT ---
EXAM DESCRIPTION: RAD - Femur Left - 11/06/2019 2:23 am CLINICAL HISTORY: fall 2 days ago;Pain COMPARISON: None. FINDINGS: No fracture is identified. There is no dislocation or periosteal reaction noted. No acute or suspicious bony finding. No air or foreign body in the soft tissues. IMPRESSION: Negative left femur examination.
== END 2019-11-06 03:52 | disposition home or self-care (01) ==
LOC: ER 01:09
DX: M25.552 Pain in left hip (principal); E11.65 Type 2 diabetes mellitus with hyperglycemia; W01.0XXA Fall on same level from slipping, tripping and stumbling without subsequent striking against object, initial encounter; Y93.9 Activity, unspecified; Y92.009 Unspecified place in unspecified non-institutional (private) residence as the place of occurrence of the external cause; Z79.4 Long term (current) use of insulin; Z88.5 Allergy status to narcotic agent; Z88.0 Allergy status to penicillin; Z88.8 Allergy status to other drugs, medicaments and biological substances; Z88.6 Allergy status to analgesic agent; Z88.1 Allergy status to other antibiotic agents; Z91.041 Radiographic dye allergy status; I10 Essential (primary) hypertension; E78.5 Hyperlipidemia, unspecified; F31.9 Bipolar disorder, unspecified; F17.210 Nicotine dependence, cigarettes, uncomplicated
CPT/HCPCS: 85025; 80048; 36415; 82947 ×2; 72100; 72170; 73552; J3010; J7030; 96374; 96375; 99284

== ENCOUNTER 2019-12-23 21:16 | Emergency (ER) | payer OTHER ==
--- OUTSIDE RECORDS SUMMARY | 2019-12-23 21:18 | XMS REPORT | Continuity of Care Document ---
:1975 Author Organization [facility] t Address [address] [place] [address] Care Team Providers Name Role Phone Denilson JEWEL DIAMETER GAUGER Attending Clinician Aleshia MON, Jung Attending Clinician Pob1, Care Clinic Attending Clinician Unavailable Doctor Unassigned, Name Attending Clinician Unavailable Dev MON Attending Clinician Problems This patient has no known problems. Allergies, Adverse Reactions, Alerts This patient has no known allergies or adverse reactions. Medications This patient has no known medications. Procedures This patient has no known procedures. Encounters Start End Encounter Admission Attending Care Care Encounter Source Date/Time Date/Time Type Type Clinicians Facility Department ID 2019-12-21 2019-12-21 Telephone MARLEE Oreilly [id number] 00:00:00 00:00:00 Kristen Morales [id number] [place] [id number] [place] [phone] [address] 2019-12-16 2019-12-16 Telephone MARLEE Monk [id number] 00:00:00 00:00:00 Perladuyen Feng Andrew [id number] [place] [id number] [place] [phone] [address] 2019-11-17 2019-11-17 Telephone Denilson [facility] [id number] 00:00:00 00:00:00 [facility] [id number] [place] [id number] Professio [phone] [place] [address] [address] 2019-11-10 2019-11-10 [facility] [id number] 00:00:00 00:00:00 [facility] [id number] [place] [id number] Professio [phone] [place] [address] [address] 2019-11-08 2019-11-08 Letter [facility] [id number] 00:00:00 00:00:00 (Out) [facility] [id number] [place] [id number] Professio [phone] [place] [address] [address] 2019-11-08 2019-11-08 Telephone Pob1, Acute [facility] [id number] 00:00:00 00:00:00 Care [facility] [id number] [place] [id number] Professio [phone] [place] [address] [address] 2019-11-08 2019-11-08 Orders Doctor [facility]SH[facility] [id number] 00:00:00 00:00:00 Only Unassigned, JEM [id number] [facility] [id number] [phone] [id number] 2019-11-04 2019-11-04 [facility] [id number] 00:00:00 00:00:00 [facility] [id number] [place] [id number] Professio [phone] [place] [address] [address] 2019-11-03 2019-11-03 Urgent Pob1, Acute [facility] [id number] 14:45:04 15:46:45 Care Care [facility] [id number] [place] [id number] Professio [phone] [place] [address] [address] 2019-11-03 2019-11-03 [facility] [id number] 00:00:00 00:00:00 [facility] [id number] [place] [id number] Professio [phone] [address] 2019-11-03 2019-11-03 [facility] [id number] 00:00:00 00:00:00 Wondiful A [place] [id number] [place] [id number] Professio [phone] [address] 2019-11-03 2019-11-03 [facility] [id number] 00:00:00 00:00:00 [facility] [id number] [place] [id number] Professio [phone] [address] 2019-10-31 2019-10-31 [facility] [id number] 00:00:00 00:00:00 Wondiful A [place] [id number] [place] [id number] Professio [phone] [address] 2019-10-31 2019-10-31 Orders Doctor SUNSHINE [id number] 00:00:00 00:00:00 Only Unassigned, JEM [id number] [place] [facility] 4.2.7.2.686 [id number] [id number] 2019-10-20 2019-10-20 [place] [facility] [id number] 00:00:00 00:00:00 Wondiful A [place] [id number] [place] [id number] Professio [phone] [address] 2019-10-17 2019-10-17 Office [facility] [id number] 10:15:37 10:56:28 Visit Wondiful A [place] [id number] [place] [id number] Professio [phone] [facility] 044 [facility] 2019-10-17 2019-10-17 Orders Doctor SUNSHINE [id number] 00:00:00 00:00:00 Only Unassigned, JEM [id number] [place] [facility] [id number] [id number] [id number] Results This patient has no known results.
--- OUTSIDE RECORDS SUMMARY | 2019-12-23 21:24 | XMS REPORT | Summary of Care ---
:1975 Author Organization [facility] Address [address] [place] [address] Care Team Providers Name Role Phone Toi Insurance Hmo BHAVIN Oreilly Primary Care Provider Encounter Details Date Type Department Care Team Description 11/08/2019 Letter (Out) [facility] Family Josh Oreilly FNP Medicine [place] [address] [address] [place] [phone] Allergies Active Allergy Reactions Severity Noted Date Comments Aspirin Hives 07/14/2005 Ciprofloxacin Hives 04/11/2017 Iodine And Iodide Containing Anaphylaxis 07/14/2005 Products Mushroom Other - See comments Low 06/12/2019 "pass o ut" Penicillin Hives 04/11/2017 Tramadol Other - See comments 03/08/2019 drowsin ess documented as of this encounter (statuses as of 11/08/2019) Medications Medication Sig Dispensed Refills Start Date [...] (scale 4-6). oxymetazoline 0.05 % Use 1 [place] in 15 mL 0 09/18/2017 Active nasal spray each nostril 2 (two) times daily. DISCARD AFTER 3 DAYS. USE MAY BE ADDICTIVE AFTER 4 DAYS USE. promethazine-codeine Take 5 mL by mouth 120 mL 0 09/18/2017 Active 6.25-10 mg/5 mL syrup 4 (four) times daily as needed for Cough. sod Use 1 Bottle in 1 Each 0 09/18/2017 Act yari jxowj-ezyakt-efasve each nostril 2 bottle (NEILMED SINUS (two) [...] throat do not swallow fluticasone Use 1 [place] in 16 g 0 11/03/2019 Ac tive propionate 50 each nostril mcg/actuation nasal daily. 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
--- OUTSIDE RECORDS SUMMARY | 2019-12-23 21:25 | XMS REPORT | Summary of Care ---
:1975 Author Organization [facility] [employer] Address [address] [place] [address] Care Team Providers Name Role Phone Toi Insurance Hmo BHAVIN Oreilly Primary Care Provider Reason for Visit Reason Comments UPPER RESPIRATORY INFECTION letter Encounter Details Date Type Department Care Team Description 11/08/2019 Telephone [facility] Family Pob1, Acute Care UPPER RESPIRATORY Medicine - [facility] INFECTION (letter) [address] [place] [phone] Allergies Active Allergy Reactions Severity Noted Date [...] (scale 4-6). oxymetazoline 0.05 % Use 1 [place] in 15 mL 0 09/18/2017 Active nasal spray each nostril 2 (two) times daily. DISCARD AFTER 3 DAYS. USE MAY BE ADDICTIVE AFTER 4 DAYS USE. promethazine-codeine Take 5 mL by mouth 120 mL 0 09/18/2017 Active 6.25-10 mg/5 mL syrup 4 (four) times daily as needed for Cough. 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
--- OUTSIDE RECORDS SUMMARY | 2019-12-23 21:25 | XMS REPORT | Summary of Care ---
:1975 Author Organization [facility] Address [address] [place] [address] Care Team Providers Name Role Phone Toi Insurance Hmo BHAVIN Oreilly Primary Care Provider Encounter Details Date Type Department Care Team Description 10/31/2019 Orders Only [facility] Doctor Unassigned, No [address] [facility] [place] [address] [address] [place] [address] Allergies Active Allergy Reactions Severity Noted Date Comments Aspirin Hives 07/14/2005 Ciprofloxacin Hives 04/11/2017 Iodine And Iodide Containing Anaphylaxis 07/14/2005 Products Mushroom Other - See comments Low 06/12/2019 "pass o ut" Penicillin Hives 04/11/2017 Tramadol Other - See comments 03/08/2019 drowsin ess documented as of this encounter (statuses as of 11/11/2019) Medications Medication Sig Dispensed Refills Start Date [...] (scale 4-6). oxymetazoline 0.05 % Use 1 [place] in 15 mL 0 09/18/2017 Active nasal spray each nostril 2 (two) times daily. DISCARD AFTER 3 DAYS. USE MAY BE ADDICTIVE AFTER 4 DAYS USE. promethazine-codeine Take 5 mL by mouth 120 mL 0 09/18/2017 Active 6.25-10 mg/5 mL syrup 4 (four) times daily as needed for Cough. sod Use 1 Bottle in 1 Each 0 09/18/2017 Act yari rqfwh-ojanpw-qizoht each nostril 2 bottle (NEILMED SINUS (two) [...] as needed for Nausea and Vomiting (N/V). FLUoxetine 60 mg Take by mouth. 0 Active tablet atorvastatin 40 mg Take 40 mg by 0 Active tablet mouth at bedtime. 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 documented as of this encounter (statuses as of 11/11/2019) Social History Tobacco Use Types Packs/Day Years [...] Breast Cancer Screening 2013 (MAMMOGRAM) INFLUENZA VACCINE (Season Ended) 2020 CREATININE (SERUM) 06/13/2020 06/13/2019, 05/16/2019, 03/09/2019, Additional history exists documented as of this encounter Procedures Procedure Name Priority Date/Time Associated Diagnosis Comme nts DME/SUPPLY JUSTIFICATION Routine 10/31/2019 12:01 AM CDT documented in this encounter Results Not on filedocumented in this encounter Insurance Payer Benefit Plan / Subscriber ID Effective Dates Phone Addre ss Type Group [facility] STAR xxxxxxxxx 2018-Present Medicaid COMM PLAN - PLUS MANAGED MEDICAID documented as of this encounter
--- OUTSIDE RECORDS SUMMARY | 2019-12-23 21:25 | XMS REPORT | Summary of Care ---
:1975 Author Organization [facility] Address [address] [place] [address] Care Team Providers Name Role Phone Toi Insurance Hmo BHAVIN Oreilly Primary Care Provider Reason for Visit Reason Comments Assessment Encounter Details Date Type Department Care Team Description 11/03/2019 Telephone [facility] Family Medicine Kristen Villa FNP Assessment - [address] [facility] [place] [address] [place] [address] Allergies Active Allergy Reactions Severity Noted Date Comments Aspirin Hives 07/14/2005 Ciprofloxacin Hives 04/11/2017 Iodine And Iodide Containing Anaphylaxis 07/14/2005 Products Mushroom Other - See comments Low 06/12/2019 "pass o ut" Penicillin Hives 04/11/2017 Tramadol Other - See comments 03/08/2019 drowsin ess documented as of this encounter (statuses as of 11/10/2019) Medications Medication Sig Dispensed Refills Start Date [...] (scale 4-6). oxymetazoline 0.05 % Use 1 [place] in 15 mL 0 09/18/2017 Active nasal spray each nostril 2 (two) times daily. DISCARD AFTER 3 DAYS. USE MAY BE ADDICTIVE AFTER 4 DAYS USE. promethazine-codeine Take 5 mL by mouth 120 mL 0 09/18/2017 Active 6.25-10 mg/5 mL syrup 4 (four) times daily as needed for Cough. sod Use 1 Bottle in 1 Each 0 09/18/2017 Act yari oznii-udbzei-kbxgvb each nostril 2 bottle (NEILMED SINUS (two) [...] throat do not swallow fluticasone Use 1 [place] in 16 g 0 11/03/2019 Ac tive propionate 50 each nostril mcg/actuation nasal daily. 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
--- OUTSIDE RECORDS SUMMARY | 2019-12-23 21:25 | XMS REPORT | Summary of Care ---
:1975 Author Organization [facility] Address [address] [place] [address] Care Team Providers Name Role Phone Toi Insurance Hmo BHAVIN Oreilly Primary Care Provider Reason for Visit Reason Comments Refill Request Encounter Details Date Type Department Care Team Description 11/10/2019 Refill [facility] Family Medicine Kristen Villa FNP Refill Request - [address] [address] [place] [address] Allergies Active Allergy Reactions Severity Noted Date Comments Aspirin Hives 07/14/2005 Ciprofloxacin Hives 04/11/2017 Iodine And Iodide Containing Anaphylaxis 07/14/2005 Products Mushroom Other - See comments Low 06/12/2019 "pass o ut" Penicillin Hives 04/11/2017 Tramadol Other - See comments 03/08/2019 drowsin ess documented as of this encounter (statuses as of 11/10/2019) Medications Medication Sig Dispensed Refills Start End Status Date Date ondansetron 4 mg Take 1 tablet by 20 tablet 0 04/12/20 Active disintegrating mouth every 4 17 tablet (four) hours as needed for Nausea and Vomiting (N/V). Butalbital-Acetamino Take 1 capsule 20 capsule 0 04/12/20 Active phen-Caff (FIORICET) by mouth every 6 17 50-300-40 mg per (six) hours as capsule needed for Pain (scale 4-6). oxymetazoline 0.05 % Use 1 [place] in 15 mL 0 09/19/19 Active nasal spray each nostril 2 18 (two) times daily. DISCARD AFTER 3 DAYS. USE MAY BE ADDICTIVE AFTER 4 DAYS USE. promethazine-codeine Take 5 mL by 120 mL 0 09/19/19 Active 6.25-10 mg/5 mL mouth 4 (four) 18 syrup times daily as needed for Cough. sod Use 1 Bottle in 1 Each 0 09/19/19 Acti ve tckee-meefps-wdqvij each nostril 2 18 bottle (NEILMED (two) times SINUS RINSE daily. Use in COMPLETE) pkdv hot shower 1 hour before bedtime loratadine 10 mg Take 1 tablet by 30 tablet 0 09/19/19 Active tablet mouth daily. 18 cyclobenzaprine 5 mg Take 1 tablet by 30 tablet 0 09/19/19 Active tablet mouth 3 (three) 18 times daily. ondansetron 4 mg Take 1 tablet by 20 tablet 0 02/28/20 Active disintegrating mouth every 8 18 tablet (eight) hours as needed for Nausea and Vomiting (N/V). FLUoxetine 60 mg Take by mouth. 0 Active tablet atorvastatin 40 mg Take 40 mg by 0 Active tablet mouth at bedtime. amitriptyline 100 mg Take 100 mg by 0 Active tablet mouth at bedtime. Polyethylene Glycol Take 1 Packet by 5 Packet 0 03/09/20 Active 3350 (MIRALAX) 17 mouth daily. 19 gram powderIndications: Constipation, unspecified constipation type lactulose 10 gram/15 Take 30 mL by 1 Bottle 0 03/09/20 Active mL oral mouth 3 (three) 19 solutionIndications: times daily as Constipation, needed for unspecified Constipation or constipation type For bowel movement. Nitrofurantoin&Nit. Take 1 capsule 10 capsule 0 05/16/20 Active Macrocryst by mouth 2 (two) 19 (MACROBID) 100 mg times daily. capsuleIndications: Nonintractable headache, unspecified chronicity pattern, unspecified headache type, Hyperglycemia, Urinary tract infection without hematuria, site unspecified clindamycin 300 mg Take 1 capsule 21 capsule 0 05/31/20 Active capsuleIndications: by mouth 3 19 Toothache (three) times daily. acetaminophen-codein Take 2 tablets 24 tablet 0 11/19/20 Active e (TYLENOL-CODEINE by mouth every 6 19 #3) 300-30 mg (six) hours as tabletIndications: needed for Pain Toothache (scale 7-10). clotrimazole-betamet Apply to 15 g 0 06/07/20 Active hasone (LOTRISONE) area(s) 2 (two) 19 creamIndications: times daily. Candidal skin infection ibuprofen 800 mg Take 1 tablet by 21 tablet 0 06/13/20 Active tabletIndications: mouth every 8 19 Cellulitis of left (eight) hours as lower extremity needed for Pain (scale 4-6). ondansetron 4 mg TAKE 1 TABLET BY 0 08/08/19 Active tablet MOUTH EVERY 4 20 HOURS NEEDED FOR NAUSEA sumatriptan Take by mouth. 0 Ac tive succinate (IMITREX ORAL) Bismuth Take 1 tablet by 30 tablet 0 11/03/19 Act yari Subsalicylate mouth 4 (four) 20 (PEPTO-BISMOL) 262 times daily as mg needed tabletIndications: (diarrhea). Diarrhea, unspecified type acetaminophen 650 mg Take 1 tablet by 20 tablet 0 11/03/19 Active CR mouth every 8 20 tabletIndications: (eight) hours as Sore throat needed for Pain or Fever. nystatin/maalox/diph Take 5 mL by 120 mL 0 11/03/19 Active enhydrAMINE/lidocain mouth 4 (four) 20 e 2 % viscous times daily as 1:1:1:1 Susp needed (Sore suspensionIndication Throat). Gargle s: Sore throat and spit, do not swallow fluticasone Use 1 [place] in 16 g 0 11/03/19 Act yari propionate 50 each nostril 20 mcg/actuation nasal daily. sprayIndications: Nasal congestion metFORMIN 1,000 mg Take 1 tablet by 60 tablet 2 11/10/19 Active tabletIndications: mouth 2 (two) 20 Type 2 diabetes times daily with mellitus with other meals. specified complication, with long-term current use of insulin omeprazole 40 mg Take 1 capsule 30 capsule 2 11/10/19 Active capsuleIndications: by mouth daily. 20 Gastroesophageal reflux disease, esophagitis presence not specified omeprazole 40 mg Take 40 mg by 0 Discontinued capsule mouth daily. 020 (Merline r) metFORMIN 1,000 mg Take 1,000 mg by 0 10/13 02 Discontinued tablet mouth 2 (two) 020 (Reord er) times daily with meals. 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
--- OUTSIDE RECORDS SUMMARY | 2019-12-23 21:26 | XMS REPORT | Summary of Care ---
:1975 Author Organization [facility] Address [address] [place] [address] Care Team Providers Name Role Phone Toi Insurance Hmo BHAIVN Oreilly Primary Care Provider Encounter Details Date Type Department Care Team Description 11/08/2019 Orders Only [facility] Doctor Unassigned, No [address] [facility] [place] [address] [address] [place] [address] Allergies Active Allergy Reactions Severity Noted Date [...] (scale 4-6). oxymetazoline 0.05 % Use 1 [place] in 15 mL 0 09/18/2017 Active nasal spray each nostril 2 (two) times daily. DISCARD AFTER 3 DAYS. USE MAY BE ADDICTIVE AFTER 4 DAYS USE. promethazine-codeine Take 5 mL by mouth 120 mL 0 09/18/2017 Active 6.25-10 mg/5 mL syrup 4 (four) times daily as needed for Cough. 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
--- OUTSIDE RECORDS SUMMARY | 2019-12-23 21:27 | XMS REPORT | Summary of Care ---
:1975 Author Organization [facility] [employer] Address [address] [place] [address] Care Team Providers Name Role Phone Toi Insurance Hmo BHAVIN Oreilly Primary Care Provider Reason for Visit Reason Comments Assessment Encounter Details Date Type Department Care Team Description 12/16/2019 Telephone [facility] Pediatric and Ara Rangel MD Assessment Adult Primary Care- [address] [place] [address] [place] [address], [phone] [address] [place] [address] Allergies Active Allergy Reactions Severity Noted Date Comments Aspirin Hives 07/14/2005 Ciprofloxacin Hives 04/11/2017 Iodine And Iodide Containing Anaphylaxis 07/14/2005 Products Mushroom Other - See comments Low 06/12/2019 "pass o ut" Penicillin Hives 04/11/2017 Tramadol Other - See comments 03/08/2019 drowsin ess documented as of this encounter (statuses as of 12/16/2019) Medications Medication Sig Dispensed Refills Start Date End Date Status ondansetron 4 mg Take 1 tablet by 20 tablet 0 04/12/2017 Active disintegrating tablet mouth every 4 (four) hours as needed for Nausea and Vomiting (N/V). Butalbital-Acetaminoph Take 1 capsule by 20 capsule 0 04/12/20 17 Active en-Caff (FIORICET) mouth every 6 50-300-40 mg per (six) hours as capsule needed for Pain (scale 4-6). oxymetazoline 0.05 % Use 1 [place] in 15 mL 0 09/18/2017 Active nasal spray each nostril 2 (two) times daily. DISCARD AFTER 3 DAYS. USE MAY BE ADDICTIVE AFTER 4 DAYS USE. promethazine-codeine Take 5 mL by mouth 120 mL 0 09/18/2017 Active 6.25-10 mg/5 mL syrup 4 (four) times daily as needed for Cough. sod Use 1 Bottle in 1 Each 0 09/18/2017 Act yari mjduv-qkinqc-scwikt each nostril 2 bottle (NEILMED SINUS (two) [...] Packet 0 03/09/2019 Active 3350 (MIRALAX) 17 gram mouth daily. powderIndications: Constipation, unspecified constipation type lactulose 10 [...] tabletIndications: needed for Pain Toothache (scale 7-10). clotrimazole-betametha Apply to area(s) 15 g 0 9 Active sone (LOTRISONE) 2 (two) times creamIndications: daily. Candidal [...] hours as needed for Pain or Fever. nystatin/maalox/diphen Take 5 mL by mouth 120 mL 0 11/03/19 20 Active hydrAMINE/lidocaine 2 4 (four) times % viscous 1:1:1:1 Susp daily as needed suspensionIndications: (Sore Throat). Sore throat Gargle and spit, do not swallow fluticasone propionate Use 1 [place] in 16 g 0 11/03/2019 Active 50 mcg/actuation nasal each nostril sprayIndications: daily. Nasal congestion metFORMIN 1,000 mg Take 1 tablet by 60 tablet 2 11/10/2019 Active tabletIndications: mouth 2 (two) Type 2 diabetes times daily with mellitus with other meals. specified complication, with long-term current use of insulin omeprazole 40 mg Take 1 capsule by 30 capsule 2 11/10/2019 Active capsuleIndications: mouth daily. Gastroesophageal reflux disease, esophagitis presence not specified HYDROcodone-acetaminop Take 1 tablet by 0 11/21/2019 Active hen 7.5-325 mg per mouth 2 (two) tablet times daily. 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 documented as of this encounter (statuses as of 12/16/2019) Social History Tobacco Use Types Packs/Day Years [...] DTaP,Tdap,and Td Vaccines (1 - 1984 Tdap) Depression Screening 1985 FOOT EXAM 11/08/1991 PAP SMEAR 1994 Breast Cancer Screening 2013 (MAMMOGRAM) INFLUENZA VACCINE (Season Ended) 2020 CREATININE (SERUM) 06/13/2020 06/13/2019, 05/16/2019, 03/09/2019, Additional history exists documented as of this encounter Results Not on filedocumented in this encounter Insurance Payer Benefit Plan / Subscriber ID Effective Dates Phone Addre ss Type Group [facility] STAR xxxxxxxxx 2018-Present Medicaid COMM PLAN - PLUS MANAGED MEDICAID documented as of this encounter
--- OUTSIDE RECORDS SUMMARY | 2019-12-23 21:27 | XMS REPORT | Summary of Care ---
:1975 Author Organization [facility] Address [address] [place] [address] Care Team Providers Name Role Phone Toi Insurance Hmo BHAVIN Oreilly Primary Care Provider Reason for Visit Reason Comments Rx Concern/Question Encounter Details Date Type Department Care Team Description 11/17/2019 Telephone [facility] Josh Oreilly FNP Rx Concern/Question Medicine - [place] [address] [address] [place] [address] [facility] [address] [address] [place], [place] [phone] Allergies Active Allergy Reactions Severity Noted Date Comments Aspirin Hives 07/14/2005 Ciprofloxacin Hives 04/11/2017 Iodine And Iodide Containing Anaphylaxis 07/14/2005 Products Mushroom Other - See comments Low 06/12/2019 "pass o ut" Penicillin Hives 04/11/2017 Tramadol Other - See comments 03/08/2019 drowsin ess documented as of this encounter (statuses as of 11/23/2019) Medications Medication Sig Dispensed Refills Start Date [...] (scale 4-6). oxymetazoline 0.05 % Use 1 [place] in 15 mL 0 09/18/2017 Active nasal spray each nostril 2 (two) times daily. DISCARD AFTER 3 DAYS. USE MAY BE ADDICTIVE AFTER 4 DAYS USE. promethazine-codeine Take 5 mL by mouth 120 mL 0 09/18/2017 Active 6.25-10 mg/5 mL syrup 4 (four) times daily as needed for Cough. 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
--- OUTSIDE RECORDS SUMMARY | 2019-12-23 21:28 | XMS REPORT | Summary of Care ---
:1975 Author Organization [facility] Address [address] [place] [address] Care Team Providers Name Role Phone Toi Insurance Hmo BHAVIN Oreilly Primary Care Provider Reason for Visit Reason Comments Refill Request Encounter Details Date Type Department Care Team Description 12/21/2019 Telephone [facility] Pediatric and Kristen Oreilly FNP Refill Request Adult Primary Care- [address] [facility] [place] [address] [address] [place] [address] [phone] Allergies Active Allergy Reactions Severity Noted Date Comments Aspirin Hives 07/14/2005 Ciprofloxacin Hives 04/11/2017 Iodine And Iodide Containing Anaphylaxis 07/14/2005 Products Mushroom Other - See comments Low 06/12/2019 "pass o ut" Penicillin Hives 04/11/2017 Tramadol Other - See comments 03/08/2019 drowsin ess documented as of this encounter (statuses as of 12/21/2019) Medications Medication Sig Dispensed Refills Start Date [...] (scale 4-6). oxymetazoline 0.05 % Use 1 [place] in 15 mL 0 09/18/2017 Active nasal spray each nostril 2 (two) times daily. DISCARD AFTER 3 DAYS. USE MAY BE ADDICTIVE AFTER 4 DAYS USE. promethazine-codeine Take 5 mL by mouth 120 mL 0 09/18/2017 Active 6.25-10 mg/5 mL syrup 4 (four) times daily as needed for Cough. 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
[2019-12-23] MEDS ORDERED: ONDANSETRON 4 MG/2 ML VIAL ONE (21:30)
[2019-12-23] MEDS ORDERED: MORPHINE 4 MG/ML SYR ONE (21:30)
[2019-12-23] MEDS ORDERED: NA CHLORIDE 0.9% 1,000 ML ONE (21:30)
[2019-12-23 23:04] LABS: Absolute Lymphocytes (CBC) 2.8 K/uL (0.7-4.9); RBC Red Blood Cell Count 5.03 M/uL (3.86-4.86)
[2019-12-23 23:07] LABS: Basophils % 0.7 % (0-1.3); Hematocrit 41.4 % (36.0-45.0); Lymphocytes % 22.2 % (15.3-44.8); MPV 7.5 fL (7.6-11.3)
--- NOTE | 2019-12-23 23:13 | EDPHYS ---
Physician Documentation [facility] Name: Barb Cortez Age: 44 yrs Sex: Female : 1975 Arrival Date: 12/23/2019 Time: 21:16 Bed 8 Private MD: ED Physician Miguel Angel Sidhu HPI: 12/22 21:45 This 44 yrs old Female presents to ER via EMS with complaints of Fall Injury. cp 21:45 Details of fall: The patient fell from seated position, out of a wheelchair, and struck cp a carpeted surface. Onset: The symptoms/episode began/occurred just prior to arrival. Associated injuries: The patient sustained injury to the head, pain, neck injury, pain, injury to the low back, pain, left hip pain. Severity of symptoms: in the emergency department the symptoms are unchanged, despite EMS interventions. Historical: - Allergies: 21:36 Aspirin; rv 21:36 Benadryl; rv 21:36 Ciprofloxacin; rv 21:36 IV contrast; rv 21:36 PENICILLINS; rv 21:36 Tramadol HCl; rv 21:36 Toradol; rv - PMHx: 21:36 Bipolar disorder; Depression; Diabetes - IDDM; Hyperlipidemia; Hypertension; Kidney rv stones; Migraines; - PSHx: 21:36 Unable to obtain; rv - Immunization history: Last tetanus immunization: unknown. - Social history:: Smoking status: unknown. ROS: 21:50 Cardiovascular: Negative for chest pain, palpitations. cp 21:50 Constitutional: Negative for body aches, chills, fever. cp 21:50 Neck: Positive for pain at rest. 21:50 Respiratory: Negative for cough, shortness of breath, wheezing. 21:50 Abdomen/GI: Negative for abdominal pain, nausea, vomiting, and diarrhea. 21:50 Back: Positive for pain at rest, pain with movement, of the lumbar area. 21:50 MS/extremity: Positive for pain, tenderness, of the right hip. 21:50 Neuro: Negative for altered mental status, loss of consciousness, seizure activity, syncope. 21:50 All other systems are negative. cp Exam: 22:00 Constitutional: The patient appears in no acute distress, alert, awake, cp non-diaphoretic, non-toxic, well developed, well nourished. 22:00 Head/Face: Normocephalic, atraumatic. cp 22:00 Eyes: Periorbital structures: appear normal, Pupils: equal, round, and reactive to light and accomodation, Extraocular movements: intact throughout, Conjunctiva: normal, no exudate, no injection, Lids and lashes: appear normal, bilaterally. 22:00 ENT: External ear(s): are unremarkable, Nose: is normal, Mouth: Lips: moist, Oral mucosa: moist, Posterior pharynx: Airway: no evidence of obstruction, patent. 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 22:00 Chest/axilla: Inspection: normal, Palpation: is normal, no crepitus, no tenderness. 22:00 Cardiovascular: Rate: normal, Rhythm: regular. 22:00 Respiratory: the patient does not display signs of respiratory distress, Respirations: normal, no use of accessory muscles, no retractions, labored breathing, is not present, Breath sounds: are clear throughout, no decreased breath sounds. 22:00 Abdomen/GI: Inspection: abdomen appears normal, Bowel sounds: active, all quadrants, Palpation: abdomen is soft and non-tender, in all quadrants. 22:00 Back: pain, that is severe, of the lumbar area, ROM is painful, with all movement. 22:00 Musculoskeletal/extremity: Extremities: all appear grossly normal, with no appreciated pain with palpation, grossly normal except: right above knee amputation, Joints: All joints are normal except the left hip displays pain at rest, painful range of motion, tenderness. 22:00 Neuro: Orientation: to person, place \T\ time. Mentation: is normal, Motor: moves all fours. Vital Signs: 21:33 BP 143 / 74; Pulse 94; Resp 18; Temp 98; Pulse Ox 99% ; Weight 54.43 kg; Height 4 ft. 9 rv in. (144.78 cm); Pain 10/10; 22:30 BP 138 / 76; Pulse 88; Resp 16; Pulse Ox 100% ; rv 23:45 BP 121 / 70; Pulse 90; Resp 16; Pulse Ox 100% ; rv 12/23 01:00 BP 115 / 64; Pulse 90; Resp 16; Temp 98; Pulse Ox 100% on R/A; rv 12/22 21:33 Body Mass Index 25.97 (54.43 kg, 144.78 cm) rv Fairview Coma Score: 12/22 21:33 Eye Response: spontaneous(4). Verbal Response: oriented(5). Motor Response: obeys rv commands(6). Total: 15. 22:30 Eye Response: spontaneous(4). Verbal Response: oriented(5). Motor Response: obeys rv commands(6). Total: 15. 23:30 Eye Response: spontaneous(4). Verbal Response: oriented(5). Motor Response: obeys rv commands(6). Total: 15. Trauma Score (Adult): 21:33 Eye Response: spontaneous(1); Verbal Response: oriented(1); Motor Response: obeys rv commands(2); Systolic BP: > 89 mm Hg(4); Respiratory Rate: 10 to 29 per min(4); Fairview Score: 15; Trauma Score: 12 MDM: 21:21 Patient medically screened. cp 22:20 Differential diagnosis: closed head injury, contusion, fracture, laceration, multiple cp trauma. 23:15 ED course: According to website for [place] prescription monitoring program, patient has cp active RXs for hydrocodone narcotic meds. 12/23 00:58 Response to treatment: the patient's symptoms have markedly improved after treatment, cp patient is well hydrated. and as a result, I will discharge patient. 00:58 ED course: VSS. Pain and blood sugar improved. Radiology studies negative for acute cp trauma. Xrays of pelvis and left femur negative for fracture. Will discharge to home for continued monitoring. 03:16 Data reviewed: vital signs, nurses notes. Data interpreted: Pulse oximetry: tw4 Interpretation: normal. Counseling: I had a detailed discussion with the patient and/or guardian regarding: the historical points, exam findings, and any diagnostic results supporting the discharge/admit diagnosis. 12/22 21:20 Order name: Basic Metabolic Panel; Complete Time: 23:22 cp 12/22 23:48 Interpretation: Normal except: NA 130; CL 95; GLUC 572; GFR 44. cp 12/22 21:20 Order name: CBC with Diff; Complete Time: 23:22 cp 12/22 23:48 Interpretation: Normal except: WBC 12.5; RBC 5.03; MPV 7.5; NEUT A 8.4. cp 12/22 21:20 Order name: Type And Screen; Complete Time: 23:47 cp 12/23 00:13 Order name: Glucose, Ancillary Testing; Complete Time: 00:17 EDMS 12/23 00:17 Interpretation: Reviewed. 12/23 00:17 Order name: Glucose, Ancillary Testing EDMS 12/23 00:59 Order name: Glucose, Ancillary Testing EDLA 12/22 21:20 Order name: XRAY Pelvis cp 12/22 21:20 Order name: XRAY Femur LEFT cp 12/22 21:27 Order name: CT Traumagram (Head C Spine CAP wo con) 12/22 21:20 Order name: Labs collected and sent; Complete Time: 22:49 cp Administered Medications: 12/22 21:28 Drug: morphine 4 mg {Note: RASS 0.} Route: IVP; Site: left forearm; rv 23:35 Follow up: Response: No adverse reaction; Marked relief of symptoms; Pain is decreased; rv RASS: Alert and Calm (0) 21:29 Drug: Zofran (Ondansetron) 4 mg Route: IVP; Site: left forearm; rv 23:35 Follow up: Response: No adverse reaction rv 22:16 Drug: NS 0.9% 1000 ml Route: IV; Rate: 1 bolus; Site: left femoral; rv 12/23 00:09 Follow up: IV Status: Completed infusion; IV Intake: 1000ml rv 12/22 23:35 Drug: Insulin Regular Human 10 units {Co-Signature: tl2 (Latonya Isbell RN).} Route: IVP; rv Site: left femoral; 12/23 00:10 Follow up: Response: Blood sugar is lowered rv 12/22 23:36 Drug: NS 0.9% 1000 ml Route: IV; Rate: 1 bolus; Site: left forearm; rv 12/23 01:10 Follow up: IV Status: Completed infusion; IV Intake: 500ml rv 00:10 Drug: Insulin Regular Human 10 units {Co-Signature: tl2 (Latonya Isbell RN).} Route: IVP; rv Site: left forearm; 01:10 Follow up: Response: No adverse reaction; Blood sugar is lowered rv Disposition: 01:15 Chart complete. cp 03:16 Co-signature as Attending Physician, Miguel Angel Sidhu MD I agree with the assessment and tw4 plan of care. Disposition: 12/24/19 00:58 Discharged to Home. Impression: Fall from non-moving wheelchair, Low back pain, Pain in left hip, Diabetes mellitus due to underlying condition with hyperglycemia. - Condition is Stable. - Discharge Instructions: Back Pain, Adult, Blood Glucose Monitoring, Adult, Diabetes Mellitus and Food, Hip Pain. - Prescriptions for orphenadrine citrate 100 mg Oral Tablet Sustained Release - take 1 tablet by ORAL route 2 times per day As needed; 20 tablet. - Medication Reconciliation Form, Thank You Letter, Antibiotic Education, Prescription Opioid Use form. - Follow up: Private Physician; When: 2 - 3 days; Reason: Recheck today's complaints. - Problem is new. - Symptoms have improved. Signatures: Dispatcher [employer] EDLA Crescencio Storey PA PA cp Wadley, Terrence, MD MD tw4 Scotty Pena RN RN rv Latonya Isbell RN tl2 Corrections: (The following items were deleted from the chart) 12/22 21:49 21:21 Head C Spine CAP W Con+CT.RAD.BRZ ordered. [facility] EDLA 23:14 23:12 12/23/2019 23:12 Discharged to Home. Impression: Fall from non-moving wheelchair. cp Condition is Stable. Forms are Medication Reconciliation Form, Thank You Letter, Antibiotic Education, Prescription Opioid Use. Follow up: Private Physician; When: 2 - 3 days; Reason: Recheck today's complaints. Problem is new. Symptoms have improved. cp 23:24 23:14 12/23/2019 23:12 Discharged to Home. Impression: Fall from non-moving wheelchair; cp Low back pain; Pain in left hip. Condition is Stable. Discharge Instructions: Fall Prevention in the Home. Forms are Medication Reconciliation Form, Thank You Letter, Antibiotic Education, Prescription Opioid Use. Follow up: Private Physician; When: 2 - 3 days; Reason: Recheck today's complaints. Problem is new. Symptoms have improved. cp 12/23 00:23 12/22 23:15 Data reviewed: vital signs, nurses notes, lab test result(s), radiologic cp studies, cp 12/23 01:11 00:58 12/24/2019 00:58 Discharged to Home. Impression: Fall from non-moving wheelchair; rv Low back pain; Pain in left hip; Diabetes mellitus due to underlying condition with hyperglycemia. Condition is Stable. Discharge Instructions: Back Pain, Adult, Blood Glucose Monitoring, Adult, Diabetes Mellitus and Food, Hip Pain. Prescriptions for orphenadrine citrate 100 mg Oral Tablet Sustained Release - take 1 tablet by ORAL route 2 times per day As needed; 20 tablet, orphenadrine citrate 100 mg Oral Tablet Sustained Release - take 1 tablet by ORAL route 2 times per day As needed; 20 tablet. and Forms are Medication Reconciliation Form, Thank You Letter, Antibiotic Education, Prescription Opioid Use. Follow up: Private Physician; When: 2 - 3 days; Reason: Recheck today's complaints. Problem is new. Symptoms have improved. cp
--- NOTE | 2019-12-23 23:13 | ER ---
Nurse's Notes [facility] Name: Barb Cortez Age: 44 yrs Sex: Female : 1975 Arrival Date: 12/23/2019 Time: 21:16 Bed 8 Private MD: Diagnosis: Fall from non-moving wheelchair;Low back pain;Pain in left hip;Diabetes mellitus due to underlying condition with hyperglycemia Presentation: 12/22 21:29 Chief complaint: Patient states: COMPLAINING OF EXTREME PAIN ON THE BACK. EMS states: rv FELL BACKWARDS WHILE SITTING ON A WHEELCHAIR. HITTING HER HEAD AND BACK ON THE FLOOR. NO LOC AND BLOOD THINNERS. Care prior to arrival: Cervical collar in place. Mechanism of Injury: Fall out of chair. Trauma event details: Injury occurred in the [facility], Injury occurred: at home. Injury occurred: December 23, 2019 Injury occurred at: 21:00. 21:29 Acuity: HARI 2 rv 21:29 Method Of Arrival: EMS: [facility] rv 21:35 Coronavirus screen: Proceed with normal triage. Ebola Screen: No symptoms or risks rv identified at this time. Initial Sepsis Screen: Does the patient meet any 2 criteria? No. Patient's initial sepsis screen is negative. Does the patient have a suspected source of infection? No. Patient's initial sepsis screen is negative. Risk Assessment: Do you want to hurt yourself or someone else? Patient reports no desire to harm self or others. Onset of symptoms was December 23, 2019 at 21:00. Trauma Activation: Alert Physician: ED Physician; Name: RAINER STOREY; Notified At: 21:15; Arrived At: Physician: General Surgeon; Name: ; Notified At: 21:15; Arrived At: Physician: Radiology; Name: BARB; Notified At: 21:15; Arrived At: Physician: Respiratory; Name: ; Notified At: 21:15; Arrived At: Physician: Lab; Name: ; Notified At: 21:15; Arrived At: Historical: - Allergies: 21:36 Aspirin; rv 21:36 Benadryl; rv 21:36 Ciprofloxacin; rv 21:36 IV contrast; rv 21:36 PENICILLINS; rv 21:36 Tramadol HCl; rv 21:36 Toradol; rv - PMHx: 21:36 Bipolar disorder; Depression; Diabetes - IDDM; Hyperlipidemia; Hypertension; Kidney rv stones; Migraines; - PSHx: 21:36 Unable to obtain; rv - Immunization history: Last tetanus immunization: unknown. - Social history:: Smoking status: unknown. Screenin:33 Abuse screen: Denies threats or abuse. Denies injuries from another. Tuberculosis rv screening: No symptoms or risk factors identified. 21:37 Nutritional screening: No deficits noted. Fall Risk Fall in past 12 months (25 points). rv Secondary diagnosis (15 points) impaired mobility, IV access (20 points). Ambulatory Aid- Crutches/Cane/Walker (15 pts). Gait- Impaired (20 pts.). Mental Status- Oriented to own ability (0 pts). Total [place] Fall Scale indicates Low Risk Score (25-44 pts). Fall prevention measures have been instituted. Placed close to Nursing Station Frequent Obs/Assesments occuring As available Patient and Family Educated on Fall Prevention Program and strategies. Primary Survey: 21:33 NO uncontrolled hemorrhage observed. Breathing/Chest: Respiratory pattern: regular, rv Respiratory effort: spontaneous, unlabored, Breath sounds: clear, Chest inspection: symmetrical rise and fall of the chest. Circulation: Cardiac rhythm: sinus rhythm. Disability Alert. Exposure/Environment: There is no evidence of uncontrolled external bleeding. No obvious injuries are noted at this time. A warming method has been applied: A warm blanket has been provided to the patient. 23:36 Reassessment Airway Airway Patent Breathing/Chest Respiratory pattern Regular rv Circulation Color [place] Disability Alert. Secondary Survey: 21:33 HEENT: No deficits noted. Gastrointestinal: Abdomen is non-distended. : No signs rv and/or symptoms were reported regarding the genitourinary system. Musculoskeletal: POST BKA RIGHT LEG. Assessment: 21:29 General: Appears uncomfortable, Behavior is cooperative. Pain: Complains of pain in rv back. Neuro: Level of Consciousness is awake, alert, obeys commands, Oriented to person, place, time, situation. EENT: No signs and/or symptoms were reported regarding the EENT system. Cardiovascular: Patient's skin is warm and dry. Rhythm is regular. Respiratory: Airway is patent. Derm: Skin is intact. Musculoskeletal: Range of motion: limited in left shoulder. 23:54 Reassessment: Patient and/or family updated on plan of care and expected duration. Pain rv level reassessed. Patient is alert, oriented x 3, equal unlabored respirations, skin warm/dry/pink. C -COLLAR TAKEN OFF. UPDATED ON THE TEST RESULTS. WILL RECHECK SUGAR. 12/23 02:22 Reassessment: pt family with pt at this time, pt states needs transportation assistance sg back to residence in [place], Kaylyn BESS housesuper notified, a taxi has been ordered. Vital Signs: 12/22 21:33 BP 143 / 74; Pulse 94; Resp 18; Temp 98; Pulse Ox 99% ; Weight 54.43 kg; Height 4 ft. 9 rv in. (144.78 cm); Pain 10/10; 22:30 BP 138 / 76; Pulse 88; Resp 16; Pulse Ox 100% ; rv 23:45 BP 121 / 70; Pulse 90; Resp 16; Pulse Ox 100% ; rv 12/23 01:00 BP 115 / 64; Pulse 90; Resp 16; Temp 98; Pulse Ox 100% on R/A; rv 12/22 21:33 Body Mass Index 25.97 (54.43 kg, 144.78 cm) rv Karena Coma Score: 12/22 21:33 Eye Response: spontaneous(4). Verbal Response: oriented(5). Motor Response: obeys rv commands(6). Total: 15. 22:30 Eye Response: spontaneous(4). Verbal Response: oriented(5). Motor Response: obeys rv commands(6). Total: 15. 23:30 Eye Response: spontaneous(4). Verbal Response: oriented(5). Motor Response: obeys rv commands(6). Total: 15. Trauma Score (Adult): 21:33 Eye Response: spontaneous(1); Verbal Response: oriented(1); Motor Response: obeys rv commands(2); Systolic BP: > 89 mm Hg(4); Respiratory Rate: 10 to 29 per min(4); Karena Score: 15; Trauma Score: 12 ED Course: 21:16 Patient arrived in ED. cf2 21:18 Rainer Storey PA is PHCP. cp 21:18 Miguel Angel Sidhu MD is Attending Physician. cp 21:20 Scotty Pena, MARIA ALEJANDRA is Primary Nurse. rv 21:30 Maintain EMS IV. Dressing intact. Good blood return noted. Site clean \T\ dry. Gauge \T\ rv site: G22 LEFT FOREARM. IV is patent, with fluids infusing freely, with good blood return. 21:32 Triage completed. rv 21:33 Patient has correct armband on for positive identification. Bed in low position. Call rv light in reach. Side rails up X2. 21:36 Arm band placed on right wrist. Patient placed in the treatment room, on a stretcher, rv Patient notified of wait time. 21:37 Patient maintains SpO2 saturation greater than 95% on room air. rv 21:37 Thermoregulation: warm blanket given to patient. rv 21:[address] Patient moved to radiology via stretcher. rv 22:13 XRAY Pelvis In Process Unspecified. EDMS 22:13 XRAY Femur LEFT In Process Unspecified. EDMS 22:16 Patient moved back from CT. Patient moved back from radiology. rv 22:17 CT Traumagram (Head C Spine CAP wo con) In Process Unspecified. EDMS 22:23 Missed attempt(s): 22 gauge in right forearm. antecubital area. Bleeding controlled, ds4 band aid applied, catheter tip intact. 23:36 No provider procedures requiring assistance completed. rv 12/23 01:10 IV discontinued, intact, bleeding controlled, No redness/swelling at site. Pressure rv dressing applied. Administered Medications: 12/22 21:28 Drug: morphine 4 mg {Note: RASS 0.} Route: IVP; Site: left forearm; rv 23:35 Follow up: Response: No adverse reaction; Marked relief of symptoms; Pain is decreased; rv RASS: Alert and Calm (0) 21:29 Drug: Zofran (Ondansetron) 4 mg Route: IVP; Site: left forearm; rv 23:35 Follow up: Response: No adverse reaction rv 22:16 Drug: NS 0.9% 1000 ml Route: IV; Rate: 1 bolus; Site: left femoral; rv 12/23 00:09 Follow up: IV Status: Completed infusion; IV Intake: 1000ml rv 12/22 23:35 Drug: Insulin Regular Human 10 units {Co-Signature: tl2 (Latonya Isbell RN).} Route: IVP; rv Site: left femoral; 12/23 00:10 Follow up: Response: Blood sugar is lowered rv 12/22 23:36 Drug: NS 0.9% 1000 ml Route: IV; Rate: 1 bolus; Site: left forearm; rv 12/23 01:10 Follow up: IV Status: Completed infusion; IV Intake: 500ml rv 00:10 Drug: Insulin Regular Human 10 units {Co-Signature: tl2 (Latonya Isbell RN).} Route: IVP; rv Site: left forearm; 01:10 Follow up: Response: No adverse reaction; Blood sugar is lowered rv Intake: 00:09 IV: 1000ml; Total: 1000ml. rv 01:10 IV: 500ml; Total: 1500ml. rv Outcome: 12/22 23:12 Discharge ordered by MD. cp 12/23 00:58 Discharge ordered by MD. cp 01:10 Discharged to home via wheelchair, with family. rv 01:10 Condition: good 01:10 Discharge instructions given to patient, Instructed on discharge instructions, follow up and referral plans. medication usage, Demonstrated understanding of instructions, follow-up care, medications, Prescriptions given X 1. 01:11 Patient left the ED. rv Signatures: Dispatcher [employer] EDMS Cheng Pabon RN RN Tonny De Souza ds4 Rainer Storey PA PA cp Scotty Pena RN RN rv Jerson Georges cf2 Latonya Isbell RN tl2
[2019-12-23] MEDS ORDERED: INSULIN -REGULAR HUMAN 50 UNIT/0.5 ML ML ONE (23:40)
[2019-12-24] MEDS ORDERED: INSULIN -REGULAR HUMAN 50 UNIT/0.5 ML ML ONE (00:12)
[2019-12-24] MEDS ORDERED: NA CHLORIDE 0.9% 1,000 ML ONE (00:12)
[2019-12-24 01:16] VITALS: TEMP 98
[2019-12-24 01:17] VITALS: O2SAT 100
[2019-12-24 01:20] VITALS: BP 115/64
--- NOTE | 2019-12-24 10:33 | RAD REPORT ---
EXAM DESCRIPTION: RAD - Pelvis - 12/23/2019 10:13 pm CLINICAL HISTORY: Pelvic pain status post injury FINDINGS: No fracture or dislocation is seen. If
--- NOTE | 2019-12-24 10:35 | RAD REPORT ---
EXAM DESCRIPTION: RAD - Femur Left - 12/23/2019 10:13 pm CLINICAL HISTORY: Left leg pain FINDINGS: No fracture is seen
--- NOTE | 2019-12-26 09:49 | RAD REPORT ---
EXAM DESCRIPTION: CT - Head C Spine Cap Wo Con - 12/24/2019 5:44 am CLINICAL HISTORY: 44 years Female, fall from wheelchair TECHNIQUE: HEAD CT: 5 mm axial images were obtained along with 3 mm reformatted coronal and sagittal images. This exam was performed according to our departmental dose-optimization program, which includes autom ated exposure control, adjustment of the mA and/or kV according to patient size and/or use of iterati ve reconstruction technique. COMPARISON: None. FINDINGS: No acute abnormal extracerebral fluid collections are demonstrated. The cortical sulci, ventricles, and cisterns are within normal limits. There are no areas of altered attenuation identified to suggest acute hemorrhage, infarction, or mass lesion. The visualized portions of the paranasal sinuses and mastoid air cells are clear. IMPRESSION: 1. Normal head CT. CT CERVICAL SPINE: 2 mm axial images were obtained along with 2 mm coronal and sagittal reformatted images. DOSE OPTIMIZATION: This facility uses dose optimization techniques as appropriate to perform exams, including at least one of the following techniques: 1. Automated exposure control. 2. Adjustment of the mA and/or kV according to patient size (this includes techniques or standardiz ed protocols for targeted exams where dose is matched to the indication/reason for exam, i.e. extremi ties or head). 3. Use of iterative reconstructive technique. COMPARISON: None. FINDINGS: The cervical vertebral body heights, interspaces, and alignments are maintained at all lev els. There is no evidence of fracture or subluxation. The facet joints are unremarkable bilaterally. Posterior elements are intact at all levels. The soft tissues are unremarkable. IMPRESSION: 1. No fracture or subluxation. CT CHEST ABDOMEN, AND PELVIS: 5 mm axial images of the chest abdomen and pelvis were obtained without IV contrast. 2 mm coronal and sagittal reformatted images were obtained. DOSE OPTIMIZATION: This facility uses dose optimization techniques as appropriate to perform exams, including at least one of the following techniques: 1. Automated exposure control. 2. Adjustment of the mA and/or kV according to patient size (this includes techniques or standardiz ed protocols for targeted exams where dose is matched to the indication/reason for exam, i.e. extremi ties or head). 3. Use of iterative reconstructive technique. FINDINGS: Lung stark: No active infiltrates. No mass lesions. No pneumothorax. Mediastinal structures: No evidence of aortic aneurysm. No significant pericardial effusion. No adenopathy. Pleural space: Normal. Axillae: Normal. CHEST WALL: Normal. Liver: Normal. Spleen: Normal. Pancreas: Normal. Gallbladder: Normal. Adrenal glands: Normal. Kidneys: Right kidney is absent. Left kidney is unremarkable. Retroperitoneal structures: There is moderately severe atherosclerotic disease about the abdominal aorta. Bowel survey: There is moderately severe diffuse distention with gas and stool. The appendix is unremarkable. The distal ileum is unremarkable. Uterus and adnexa: There is an IUD is identified in good position. Urinary bladder: There is a moderate amount of gas along the nondependent wall of the bladder likely secondary to recent catheterization. Peritoneal cavity: Normal. Mesenteric structures: Normal. Abdominal wall: Normal. Bony structures: No fractures identified. IMPRESSION: 1. No acute postradiation changes. 2. Moderately severe distention of the colon. 3. Moderate amount of gas along the nondependent wall of the urinary bladder likely secondary to rece nt catheterization. 4. Atherosclerotic disease. 5. Post nephrectomy changes demonstrated on the right.. Electronically signed by: Benny Darling MD 12/23/2019 10:37 PM CDT Due to temporary technical issues with the PACS/Fluency reporting system, reports are being signed by the in house radiologist without review as a courtesy to ensure prompt reporting. The interpreting r adiologist is fully responsible for the content of the report.
== END 2019-12-24 01:11 | disposition home or self-care (01) ==
LOC: ER 21:16
DX: M54.5 Low back pain (principal); M25.552 Pain in left hip; E11.65 Type 2 diabetes mellitus with hyperglycemia; W05.0XXA Fall from non-moving wheelchair, initial encounter; Y93.9 Activity, unspecified; Y92.9 Unspecified place or not applicable; Z88.0 Allergy status to penicillin; Z88.6 Allergy status to analgesic agent; Z88.1 Allergy status to other antibiotic agents; Z88.8 Allergy status to other drugs, medicaments and biological substances
CPT/HCPCS: 85025; 80048; 36415; 86900; 86850; 86901; 82947 ×2; 70450; 71250; 72125; 72170; 73552; 99285; J7030 ×2; J2405

== ENCOUNTER 2020-01-31 15:54 | Emergency (ER) | payer OTHER ==
--- OUTSIDE RECORDS SUMMARY | 2020-01-31 15:56 | XMS REPORT | Continuity of Care Document ---
:[address] [facility] t Address 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 Allergies, Adverse Reactions, Alerts This patient has no known allergies or adverse reactions. Medications This patient has no known medications. Procedures This patient has no known procedures. Encounters Start End Encounter Admission Attending Care Care Encounter Source Date/Time Date/Time Type Type Clinicians Facility Department ID 2020-01-28 2020-01-28 [facility] [id number] 00:00:00 00:00:00 Kristen [facility] [id number] [place] [id number] Professio [phone] nal [facility] [address] 2020-01-27 2020-01-27 Telephone [facility] [id number] 00:00:00 00:00:00 Kristen [place] [id number] [place] [id number] Professio [phone] nal [address] 2020-01-26 2020-01-26 Urgent Pob1, Acute [facility] [id number] 11:33:34 12:26:41 [facility] [id number] [place] [id number] Professio [phone] [facility] 044 [address] One Results This patient has no known results.
--- OUTSIDE RECORDS SUMMARY | 2020-01-31 15:59 | XMS REPORT | Summary of Care ---
:1975 Author Organization [facility] [employer] Address [address] [place] [address] Care Team Providers Name Role Phone Toi Insurance Hmo BHAVIN Oreilly Primary Care Provider Reason for Visit Reason Comments Assessment Encounter Details Date Type Department Care Team Description 12/28/2019 Telephone [facility] Pediatric and Ara Rangel MD Assessment Adult Primary Care- [address] [place] [address] [place] [address], [address] [place] [address] Allergies Active Allergy Reactions Severity Noted Date Comments Aspirin Hives 07/14/2005 Ciprofloxacin Hives 04/11/2017 Iodine And Iodide Containing Anaphylaxis 07/14/2005 Products Mushroom Other - See comments Low 06/12/2019 "pass o ut" Penicillin Hives 04/11/2017 Tramadol Other - See comments 03/08/2019 drowsin ess documented as of this encounter (statuses as of 12/28/2019) Medications Medication Sig Dispensed Refills Start Date [...] (scale 4-6). oxymetazoline 0.05 % Use 1 [place] in 15 mL 0 09/18/2017 Active nasal spray each nostril 2 (two) times daily. DISCARD AFTER 3 DAYS. USE MAY BE ADDICTIVE AFTER 4 DAYS USE. promethazine-codeine Take 5 mL by mouth 120 mL 0 09/18/2017 Active 6.25-10 mg/5 mL syrup 4 (four) times daily as needed for Cough. 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 STAR xxxxxxxxx 2018-Present Medicaid COMM PLAN - PLUS MANAGED MEDICAID documented as of this encounter
--- OUTSIDE RECORDS SUMMARY | 2020-01-31 16:00 | XMS REPORT | Summary of Care ---
:1975 Author Organization [facility] [employer] Address [address] [place] [address] Care Team Providers Name Role Phone Toi Insurance Hmo BHAVIN Oreilly Primary Care Provider Reason for Visit Reason Comments Assessment Encounter Details Date Type Department Care Team Description 01/12/2020 Telephone [facility] Pediatric and Ara Rangel MD Assessment Adult Primary Care- [address] [place] [address] [place] [address], [address] [place] [address] Allergies Active Allergy Reactions Severity Noted Date Comments Aspirin Hives 07/14/2005 Ciprofloxacin Hives 04/11/2017 Iodine And Iodide Containing Anaphylaxis 07/14/2005 Products Mushroom Other - See comments Low 06/12/2019 "pass o ut" Penicillin Hives 04/11/2017 Tramadol Other - See comments 03/08/2019 drowsin ess documented as of this encounter (statuses as of 01/12/2020) Medications Medication Sig Dispensed Refills Start Date [...] (scale 4-6). oxymetazoline 0.05 % Use 1 [place] in 15 mL 0 09/18/2017 Active nasal spray each nostril 2 (two) times daily. DISCARD AFTER 3 DAYS. USE MAY BE ADDICTIVE AFTER 4 DAYS USE. promethazine-codeine Take 5 mL by mouth 120 mL 0 09/18/2017 Active 6.25-10 mg/5 mL syrup 4 (four) times daily as needed for Cough. 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 STAR xxxxxxxxx 2018-Present Medicaid COMM PLAN - PLUS MANAGED MEDICAID documented as of this encounter
--- OUTSIDE RECORDS SUMMARY | 2020-01-31 16:00 | XMS REPORT | Summary of Care ---
:1975 Author Organization [facility] Address [address] [place] [address] Care Team Providers Name Role Phone Toi Insurance Hmo BHAVIN Oreilly Primary Care Provider Reason for Visit Reason Comments Refill Request Encounter Details Date Type Department Care Team Description 12/31/2019 Refill [facility] Family Medicine Kristen Villa FNP Refill Request - [address] [place] [address] [place] [phone] Allergies Active Allergy Reactions Severity Noted Date Comments Aspirin Hives 07/14/2005 Ciprofloxacin Hives 04/11/2017 Iodine And Iodide Containing Anaphylaxis 07/14/2005 Products Mushroom Other - See comments Low 06/12/2019 "pass o ut" Penicillin Hives 04/11/2017 Tramadol Other - See comments 03/08/2019 drowsin ess documented as of this encounter (statuses as of 01/02/2020) Medications Medication Sig Dispensed Refills Start Date [...] (scale 4-6). oxymetazoline 0.05 % Use 1 [place] in 15 mL 0 09/18/2017 Active nasal spray each nostril 2 (two) times daily. DISCARD AFTER 3 DAYS. USE MAY BE ADDICTIVE AFTER 4 DAYS USE. promethazine-codeine Take 5 mL by mouth 120 mL 0 09/18/2017 Active 6.25-10 mg/5 mL syrup 4 (four) times daily as needed for Cough. sod Use 1 Bottle in 1 Each 0 09/18/2017 Act yari mwtnt-svvslu-oedqei each nostril 2 bottle (NEILMED SINUS (two) [...] do not swallow fluticasone propionate Use 1 [place] in 16 g 0 11/03/2019 Active 50 [...] as of this encounter (statuses as of 01/02/2020) Active Problems Problem Noted Date Sore throat [...] Abdominal pain 07/14/2005 Overview: ICD10 Diagnosis Term [address] Justice Utility documented as of this encounter (statuses as of 01/02/2020) Social History Tobacco Use Types Packs/Day Years [...] Effective Dates Phone Addre ss Type Group [facility] STAR xxxxxxxxx 2018-Present Medicaid COMM PLAN - PLUS MANAGED MEDICAID documented as of this encounter
--- OUTSIDE RECORDS SUMMARY | 2020-01-31 16:00 | XMS REPORT | Summary of Care ---
:1975 Author Organization [facility] Address [address] [place] [address] Care Team Providers Name Role Phone Toi Insurance Hmo BHAVIN Oreilly Primary Care Provider Reason for Visit Reason Comments Forms Encounter Details Date Type Department Care Team Description 01/04/2020 Telephone [facility] Family Medicine Ara Baptiste MD Forms - [address] [place] [address] [place] [address] [phone] Allergies Active Allergy Reactions Severity Noted Date Comments Aspirin Hives 07/14/2005 Ciprofloxacin Hives 04/11/2017 Iodine And Iodide Containing Anaphylaxis 07/14/2005 Products Mushroom Other - See comments Low 06/12/2019 "pass o ut" Penicillin Hives 04/11/2017 Tramadol Other - See comments 03/08/2019 drowsin ess documented as of this encounter (statuses as of 01/04/2020) Medications Medication Sig Dispensed Refills Start Date [...] (scale 4-6). oxymetazoline 0.05 % Use 1 [place] in 15 mL 0 09/18/2017 Active nasal spray each nostril 2 (two) times daily. DISCARD AFTER 3 DAYS. USE MAY BE ADDICTIVE AFTER 4 DAYS USE. promethazine-codeine Take 5 mL by mouth 120 mL 0 09/18/2017 Active 6.25-10 mg/5 mL syrup 4 (four) times daily as needed for Cough. 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
--- OUTSIDE RECORDS SUMMARY | 2020-01-31 16:00 | XMS REPORT | Summary of Care ---
:1975 Author Organization [facility] [employer] Address [address] [place] [address] Care Team Providers Name Role Phone Toi Insurance Hmo BHAVIN Oreilly Primary Care Provider Reason for Visit Reason Comments Assessment Encounter Details Date Type Department Care Team Description 01/09/2020 Telephone [facility] Pediatric and Ara Rangel MD Assessment Adult Primary Care- [address] [place] [address] [place] [address], [address] [place] [address] Allergies Active Allergy Reactions Severity Noted Date Comments Aspirin Hives 07/14/2005 Ciprofloxacin Hives 04/11/2017 Iodine And Iodide Containing Anaphylaxis 07/14/2005 Products Mushroom Other - See comments Low 06/12/2019 "pass o ut" Penicillin Hives 04/11/2017 Tramadol Other - See comments 03/08/2019 drowsin ess documented as of this encounter (statuses as of 01/09/2020) Medications Medication Sig Dispensed Refills Start Date [...] (scale 4-6). oxymetazoline 0.05 % Use 1 [place] in 15 mL 0 09/18/2017 Active nasal spray each nostril 2 (two) times daily. DISCARD AFTER 3 DAYS. USE MAY BE ADDICTIVE AFTER 4 DAYS USE. promethazine-codeine Take 5 mL by mouth 120 mL 0 09/18/2017 Active 6.25-10 mg/5 mL syrup 4 (four) times daily as needed for Cough. 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
--- OUTSIDE RECORDS SUMMARY | 2020-01-31 16:01 | XMS REPORT | Summary of Care ---
:1975 Author Organization [facility] Address [address] [place] [address] Care Team Providers Name Role Phone Toi Insurance Hmo BHAVIN Oreilly Primary Care Provider Reason for Visit Reason Comments Assessment Encounter Details Date Type Department Care Team Description 01/24/2020 Telephone [facility] Pediatric and Burak Rose MD Assessment Adult Primary Care- [address] [place] [address] [place] [address], [address] [place] [address] Allergies Active Allergy Reactions Severity Noted Date Comments Aspirin Hives 07/14/2005 Ciprofloxacin Hives 04/11/2017 Iodine And Iodide Containing Anaphylaxis 07/14/2005 Products Mushroom Other - See comments Low 06/12/2019 "pass o ut" Penicillin Hives 04/11/2017 Tramadol Other - See comments 03/08/2019 drowsin ess documented as of this encounter (statuses as of 01/24/2020) Medications Medication Sig Dispensed Refills Start Date [...] (scale 4-6). oxymetazoline 0.05 % Use 1 [place] in 15 mL 0 09/18/2017 Active nasal spray each nostril 2 (two) times daily. DISCARD AFTER 3 DAYS. USE MAY BE ADDICTIVE AFTER 4 DAYS USE. promethazine-codeine Take 5 mL by mouth 120 mL 0 09/18/2017 Active 6.25-10 mg/5 mL syrup 4 (four) times daily as needed for Cough. 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
--- OUTSIDE RECORDS SUMMARY | 2020-01-31 16:01 | XMS REPORT | Summary of Care ---
:1975 Author Organization [facility] Address [address] [place] [address] Care Team Providers Name Role Phone Toi Insurance Hmo BHAVIN Oreilly Primary Care Provider Encounter Details Date Type Department Care Team Description 01/02/2020 Orders Only [facility] Doctor Unassigned, No [address] [facility] [place] [address] [address] [place] [address] Allergies Active Allergy Reactions Severity Noted Date Comments Aspirin Hives 07/14/2005 Ciprofloxacin Hives 04/11/2017 Iodine And Iodide Containing Anaphylaxis 07/14/2005 Products Mushroom Other - See comments Low 06/12/2019 "pass o ut" Penicillin Hives 04/11/2017 Tramadol Other - See comments 03/08/2019 drowsin ess documented as of this encounter (statuses as of 01/19/2020) Medications Medication Sig Dispensed Refills Start Date [...] (scale 4-6). oxymetazoline 0.05 % Use 1 [place] in 15 mL 0 09/18/2017 Active nasal spray each nostril 2 (two) times daily. DISCARD AFTER 3 DAYS. USE MAY BE ADDICTIVE AFTER 4 DAYS USE. promethazine-codeine Take 5 mL by mouth 120 mL 0 09/18/2017 Active 6.25-10 mg/5 mL syrup 4 (four) times daily as needed for Cough. 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
--- OUTSIDE RECORDS SUMMARY | 2020-01-31 16:02 | XMS REPORT | Summary of Care ---
:1975 Author Organization [facility] - Health Address [address] [place] [address] Care Team Providers Name Role Phone Toi Insurance Hmo BHAVIN Oreilly Primary Care Provider Reason for Visit Reason Comments Sore Throat started about a week ago. Sinus Problem been a while pt states Encounter Details Date Type Department Care Team Description 01/26/2020 Urgent Care [facility] Family Josh Oreilly FNP [facility] [address] [place] [phone] URI, acute (Primary Dx); Medicine - [place] [facility] Suspected Covid-19 Virus Infection; [address] [place] [address] [address]ore thro[address] t; Drive Medication refill; [place], [place] Gastroesophagea l reflux disease, esophagitis presence not specified [phone] Allergies Active Allergy Reactions Severity Noted Date Comments Aspirin Hives 07/14/2005 Diphenhydramine Hcl Hives 01/26/2020 Ciprofloxacin Hives 04/11/2017 Iodine And Iodide Containing Anaphylaxis 07/14/2005 Products Mushroom Other - See comments Low 06/12/2019 "pass o ut" Penicillin Hives 04/11/2017 Tramadol Other - See comments 03/08/2019 drowsin ess documented as of this encounter (statuses as of 01/26/2020) Medications Medication Sig Dispensed Refills Start End Status Date Date ondansetron 4 mg Take 1 tablet 20 tablet 0 04/12/20 Active disintegrating tablet by mouth every 17 4 (four) hours as needed for Nausea and Vomiting (N/V). Butalbital-Acetaminop Take 1 capsule 20 capsule 0 04/12/20 Active hen-Caff (FIORICET) by mouth every 17 50-300-40 mg per 6 (six) hours capsule as needed for Pain (scale 4-6). oxymetazoline 0.05 % Use 1 [place] in 15 mL 0 09/19/19 Active nasal spray each nostril 2 18 (two) times daily. DISCARD AFTER 3 DAYS. USE MAY BE ADDICTIVE AFTER 4 DAYS USE. promethazine-codeine Take 5 mL by 120 mL 0 09/19/19 Active 6.25-10 mg/5 mL syrup mouth 4 (four) 18 times daily as needed for Cough. sod Use 1 Bottle in 1 Each 0 09/19/19 Acti ve erviz-wdrmep-agppji each nostril 2 18 bottle (NEILMED SINUS (two) times RINSE COMPLETE) pkdv daily. Use in hot shower 1 hour before bedtime loratadine 10 mg Take 1 tablet 30 tablet 0 09/19/19 Active tablet by mouth daily. 18 cyclobenzaprine 5 mg Take 1 tablet 30 tablet 0 09/19/19 Active tablet by mouth 3 18 (three) times daily. ondansetron 4 mg Take 1 tablet 20 tablet 0 02/28/20 Active disintegrating tablet by mouth every 18 8 (eight) hours as needed for Nausea and Vomiting (N/V). FLUoxetine 60 mg Take by mouth. 0 Active tablet atorvastatin 40 mg Take 40 mg by 0 Active tablet mouth at bedtime. amitriptyline 100 mg Take 100 mg by 0 Active tablet mouth at bedtime. Polyethylene Glycol Take 1 Packet 5 Packet 0 03/09/20 Active 3350 (MIRALAX) 17 by mouth daily. 19 gram powderIndications: Constipation, unspecified constipation type lactulose 10 gram/15 Take 30 mL by 1 Bottle 0 03/09/20 Active mL oral mouth 3 (three) 19 solutionIndications: times daily as Constipation, needed for unspecified Constipation or constipation type For bowel movement. Nitrofurantoin&Nit. Take 1 capsule 10 capsule 0 05/16/20 Active Macrocryst (MACROBID) by mouth 2 19 100 mg (two) times capsuleIndications: daily. Nonintractable headache, unspecified chronicity pattern, unspecified headache type, Hyperglycemia, Urinary tract infection without hematuria, site unspecified clindamycin 300 mg Take 1 capsule 21 capsule 0 05/31/20 Active capsuleIndications: by mouth 3 19 Toothache (three) times daily. acetaminophen-codeine Take 2 tablets 24 tablet 0 05/31/20 Active (TYLENOL-CODEINE #3) by mouth every 19 300-30 mg 6 (six) hours tabletIndications: as needed for Toothache Pain (scale 7-10). clotrimazole-betameth Apply to 15 g 0 06/07/20 Active asone (LOTRISONE) area(s) 2 (two) 19 creamIndications: times daily. Candidal skin infection ibuprofen 800 mg Take 1 tablet 21 tablet 0 06/13/20 Active tabletIndications: by mouth every 19 Cellulitis of left 8 (eight) hours lower extremity as needed for Pain (scale 4-6). ondansetron 4 mg TAKE 1 TABLET 0 08/08/19 Active tablet BY MOUTH EVERY 20 4 HOURS NEEDED FOR NAUSEA sumatriptan succinate Take by mouth. 0 Active (IMITREX ORAL) Bismuth Subsalicylate Take 1 tablet 30 tablet 0 11/03/19 Active (PEPTO-BISMOL) 262 mg by mouth 4 20 tabletIndications: (four) times Diarrhea, unspecified daily as needed type (diarrhea). acetaminophen 650 mg Take 1 tablet 20 tablet 0 11/03/19 Active CR tabletIndications: by mouth every 20 Sore throat 8 (eight) hours as needed for Pain or Fever. nystatin/maalox/diphe Take 5 mL by 120 mL 0 11/03/19 Active nhydrAMINE/lidocaine mouth 4 (four) 20 2 % viscous 1:1:1:1 times daily as Susp needed (Sore suspensionIndications Throat). Gargle : Sore throat and spit, do not swallow metFORMIN 1,000 mg Take 1 tablet 60 tablet 2 11/10/19 Active tabletIndications: by mouth 2 20 Type 2 diabetes (two) times mellitus with other daily with specified meals. complication, with long-term current use of insulin HYDROcodone-acetamino Take 1 tablet 0 11/21/19 Active phen 7.5-325 mg per by mouth 2 20 tablet (two) times daily. aspirin 81 mg CHEW BY MOUTH 1 0 09/07/19 Active chewable tablet TABLET DAILY 20 methylPREDNISolone 4 Take by mouth 21 Each 0 01/26/20/2 2/2 Active mg SEE-INSTRUCTION 20 020 tabletsIndications: S for 6 days. URI, acute follow package directions fluticasone (FLONASE Use 2 Sprays in 10 g 0 01/26/2027/08 Active SENSIMIST) 27.5 each nostril 20 020 mcg/actuation nasal daily for 30 sprayIndications: days. URI, acute albuterol (VENTOLIN Inhale 2 Puffs 8.5 g 0 01/26/2002/24 Active HFA) 90 mcg/actuation every 6 (six) 20 020 inhalerIndications: hours as needed Medication refill for Shortness of Breath for up to 30 days. omeprazole 40 mg Take 1 capsule 30 capsule 2 01/26/20 Active capsuleIndications: by mouth daily. 20 Gastroesophageal reflux disease, esophagitis presence not specified fluticasone Use 1 [place] in 16 g 0 11/03/19 Dis continued propionate 50 each nostril 20 020 (Th erapy mcg/actuation nasal daily. completed) sprayIndications: Nasal congestion omeprazole 40 mg Take 1 capsule 30 capsule 2 11/10/19 Discontinued capsuleIndications: by mouth daily. 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 COVID-19 Exposure Response Date Recorded In the last month, have you been in contact with No / Unsure 01/26/2020 11:34 AM CDT someone who was confirmed or suspected to have Coronavirus / COVID-19? documented as of this encounter Last Filed Vital Signs Vital Sign Reading Time Taken Comments Blood Pressure 126/79 01/26/2020 11:40 AM CDT Pulse 82 01/26/2020 11:40 AM CDT Temperature 36.9 C (98.5 F) 01/26/2020 11:40 AM CDT Respiratory Rate 20 01/26/2020 11:40 AM CDT Oxygen Saturation 99% 01/26/2020 11:40 AM CDT Inhaled Oxygen Concentration - - Weight 53.1 kg (117 lb) 01/26/2020 11:40 AM CDT Height 144.8 cm (4' 9") 01/26/2020 11:40 AM CDT Body Mass Index 25.32 01/26/2020 11:40 AM CDT documented in this encounter Patient Instructions Patient InstructionsKristen Oreilly FNP - 01/26/2020 11:20 AM CDT Patient Education Viral Upper Respiratory Illness (Adult) You have a viral upper respiratory illness (URI), which is another term for the common cold. This illness is contagious during the first few days. It is spread through the air by coughing and sneezing.It may also be spread by direct contact (touching the sick person and then touching your own eyes, nose, or mouth). Frequent handwashing will decrease risk of spread. Most viral illnesses go away within 7 to 10 days with rest and simple home remedies. Sometimes the illness may last for several weeks. Antibiotics will not kill a virus, and they are generally not prescribed for this condition. Home care If symptoms are severe, rest at home for the first 2 to 3 days. When you resume activity, don't let yourself get too tired. Don't smoke. If you need help stopping, talk with your healthcare provider. Avoid being exposed to cigarette smoke (yours or others). You may use acetaminophen or ibuprofen to control pain and fever, unless another medicine was prescribed.If you have chronic liver or kidney disease, have ever had a stomach ulcer or gastrointestinal bleeding, or are taking blood- thinning medicines, talk with your healthcare provider before usingthese medicines. Aspirin should never be given to anyone under 18 years of age who is ill with a viral infection or fever. It may cause severe liver or brain damage. Your appetite may be poor, so a light diet is fine. Stay well hydrated by drinking 6 to 8 glassesof fluids per day (water, soft drinks, juices, tea, or soup). Extra fluids will help loosen secretions in the nose and lungs. Pqao-giq-vfrwiqc cold medicines will not shorten the length of time youre sick, but they may be helpful for the following symptoms: cough, sore throat, and nasal and sinus congestion. If you takeprescription medicines, ask your healthcare provider or pharmacist which onow-kly-zfudrus medicines are safe to use. (Note: Don't use decongestants if you have high blood pressure.) Follow-up care Follow up with your healthcare provider, or as advised. When to seek medical advice Call your healthcare provider right away if any of these occur: Cough with lots of colored sputum (mucus) Severe headache; face, neck, or ear pain Difficultyswallowingdue to throat pain Fever of 100.4F (38C) or higher, or as directed by your healthcare provider Call 911 Call 911 if any of these occur: Chest pain, shortness of breath, wheezing, or difficulty breathing Coughing up blood Very severe pain with swallowing, especially if it goes along with a muffled voice byUs last reviewed this educational content on 12/11/201719996807-4481 [employer]. [address] [place] [address], [place] [address]. All rights reserved. This information is not intended as a substitute for professional medical care. Always follow your healthcare professional's instructions. documented in this encounter Progress Notes Kristen Oreilly FNP - 01/26/2020 11:20 AM CDT Cc: Chief Complaint Patient presents with Sore Throat started about a week ago. Sinus Problem been a while pt states Cough Pt states its been for a while Barb Cortez is a 44 year old female. Patient has seasonal allergies with acute flare up of symptoms, she has been taking her allergy medication with no relief. She believes she has sinus infections. She is here with the following URI symptoms. URI Presenting symptoms: congestion and sore throat Presenting symptoms: no cough Congestion: Location: Nasal Interferes with sleep: no Interferes with eating/drinking: no Severity: Moderate Onset quality: Gradual Duration: 1 week Timing: Constant Progression: Unchanged Chronicity: New Relieved by: Nothing Worsened by: Nothing Ineffective treatments: None tried Associated symptoms: sinus pain Associated symptoms: no swollen glands and no wheezing Risk factors: no sick contacts Allergies Barb is allergic to aspirin; benadryl [diphenhydramine hcl]; ciprofloxacin; ivp dye [iodine and iodide containing products]; penicillin; tramadol; and mushroom. Medications Outpatient Medications Prior to Visit Medication Sig Dispense Refill aspirin 81 mg chewable tablet CHEW BY MOUTH 1 TABLET DAILY HYDROcodone-acetaminophen 7.5-325 mg per tablet Take 1 tablet by mouth 2 (two) times daily. metFORMIN 1,000 mg tablet Take 1 tablet by mouth 2 (two) times daily with meals. 60 tablet 2 omeprazole 40 mg capsule Take 1 capsule by mouth daily. 30 capsule 2 acetaminophen 650 mg CR tablet Take 1 tablet by mouth every 8 (eight) hours as needed for Pain or Fever. 20 tablet 0 Bismuth Subsalicylate (PEPTO-BISMOL) 262 mg tablet Take 1 tablet by mouth 4 (four) times daily as needed (diarrhea). 30 tablet 0 fluticasone propionate 50 mcg/actuation nasal spray Use 1 [place] in each nostril daily. 16 g 0 nystatin/maalox/diphenhydrAMINE/lidocaine 2 % viscous 1:1:1:1 Susp suspension Take 5 mL by mouth4 (four) times daily as needed (Sore Throat). Gargle and spit, do not swallow 120 mL 0 sumatriptan succinate (IMITREX ORAL) Take by mouth. ondansetron 4 mg tablet TAKE 1 TABLET BY MOUTH EVERY 4 HOURS NEEDED FOR NAUSEA ibuprofen 800 mg tablet Take 1 tablet [...] or For bowel movement. 1 Bottle 0 Polyethylene Glycol 3350 (MIRALAX) 17 gram powder [...] oxymetazoline 0.05 % nasal spray Use 1 [place] in each nostril 2 (two) times daily. DISCARD AFTER 3 DAYS. USE MAY BE ADDICTIVE AFTER 4 DAYS USE. 15 mL 0 promethazine-codeine 6.25-10 mg/5 mL syrup Take 5 mL by mouth 4 (four) times daily as needed forCough. 120 mL 0 sod jmvol-czzebm-xvgkid bottle (NEILMED SINUS RINSE COMPLETE) pkdv Use 1 Bottle in each nostril 2 (two) times daily. Use in hot shower 1 hour before bedtime 1 Each 0 Kbijqfntrn-Lqciotvwlbjyy-Tgxo (FIORICET) 50-300-40 mg per capsule Take 1 [...] file Gets together: Not on file Attends [employer] service: Not on file Active member of [...] file Social History Narrative Not on file No family history on file. Review of Systems Constitutional: Negative. HENT: Positive for congestion, sinus pressure, sinus pain and sore throat. Negative for trouble swallowing and voice change. Respiratory: Negative. Negative for apnea, cough, choking, chest tightness, shortness of breath andwheezing. Cardiovascular: Negative. Negative for chest pain, palpitations and leg swelling. Gastrointestinal: Negative. Skin: Negative. Neurological: Negative. Endocrine: Endocrine negative Vital Signs BP 126/79 | Pulse 82 | Temp 36.9 C (98.5 F) | Resp 20 | Ht 4' 9" (1.448 m) | Wt 117 lb (53.1 kg) | SpO2 99% | BMI 25.32 kg/m Physical Exam Constitutional: She is oriented to person, place, and time. She appears well- developed and well-nourished. HENT: Head: Normocephalic. Right Ear: Hearing, tympanic membrane, external ear and ear canal normal. Left Ear: Hearing, tympanic membrane, external ear and ear canal normal. Nose: Rhinorrhea present. Right sinus exhibits no maxillary sinus tenderness and no frontal sinus tenderness. Left sinus exhibits no maxillary sinus tenderness and no frontal sinus tenderness. Mouth/Throat: Uvula is midline, oropharynx is clear and moist and mucous membranes are normal. No oropharyngeal exudate, posterior oropharyngeal edema or posterior oropharyngeal erythema. No tonsillar exudate. Neck: Normal range of motion. Neck supple. Cardiovascular: Normal rate, regular rhythm, normal heart sounds and intact distal pulses. Exam reveals no gallop and no friction rub. No murmur heard. Pulmonary/Chest: Effort normal and breath sounds normal. No respiratory distress. She has no wheezes. She has no rales. She exhibits no tenderness. Abdominal: Soft. Bowel sounds are normal. She exhibits no distension. There is no tenderness. Lymphadenopathy: Head (right side): No submental, no submandibular, no tonsillar, no preauricular and no posterior auricular adenopathy present. Head (left side): No submental, no submandibular, no tonsillar, no preauricular and no posterior auricular adenopathy present. She has no cervical adenopathy. Neurological: She is alert and oriented to person, place, and time. Skin: Skin is warm and dry. Capillary refill takes less than 2 seconds. No rash noted. No erythema. No pallor. Psychiatric: She has a normal mood and affect. Nursing note and vitals reviewed. Assessment/Plan 1. Sore throat: exam unremarkable. Covid test done and pending. Dont smoke, and avoid secondhand smoke. Try lozenges OTC as directed Drink warm liquids to soothe the throat and help thin mucus. Avoid alcohol, spicy foods, and acidic drinks such as orange juice. These can irritate the throat. Gargle with warm saltwater (1 teaspoon of salt to 8 ounces of warm water). Use a humidifier to keep air moist and relieve throat dryness. Try ykbo-raa-zqbebcs pain relievers such as acetaminophen or ibuprofen. Use as directed, and dont exceed the recommended dose. 2. URI acute: continue allergy medication and flonase. Covid test done and pending. In the meantime, quarantine in place, treat symptoms with OTC meds, Tylenol as needed but no NSAIDs.Stay in quarantine until symptoms subsides, plus 3 days afterwards or until you hear otherwise. Follow up with your PCP as needed, and if with worsening of symptoms, any respiratory distress, go to theER. 3. Medication refill: Albuterol refilled. Lucille Anderson MA - 01/26/2020 11:20 AM CDT Barb Cortez is a 44 year old female Chief Complaint Patient presents with Sore Throat started about a week ago. Sinus Problem been a while pt states Cough Pt states its been for a while Vitals: 01/26/20 1140 BP: 126/79 Pulse: 82 Resp: 20 Temp: 36.9 C (98.5 F) SpO2: 99% Weight: 117 lb (53.1 kg) Height: 4' 9" (1.448 m) [facility]/pharmacy #[id number] All Vitals taken, allergies and all medications reviewed, fall risk assessed. Pain level 0. Lucille Simpson MA 01/26/2020 11:43 AM Patient educated on plan of care for visit, swabbing technique, risks and benefits of test and length of time to receive results. Verbal consent obtained to perform test. CDC Fact Sheet for Patients nCoV Diagnostic Panel dated 09/25/2019 provided. documented in this encounter Plan of Treatment Name Type Priority Associated Diagnoses Order S chedule COVID-19 (PCR MOLECULAR LAB Routine Suspected Covid-1 9 Virus Expected: 01/26/2020, TESTING) Infection Expires: 2020 Health Maintenance Due Date [...] filedocumented in this encounter Visit Diagnoses Diagnosis URI, acute - Primary Acute upper respiratory infections of un specified site Suspected Covid-19 Virus Infection Sore throat Acute pharyngitis Medication refill Issue of repeat prescriptions Gastroesophageal reflux disease, esophag itis presence not specified documented in this encounter Additional Health Concerns Infection Onset Date Last Indicated Resolved Time COVID-19 Rule Out 01/26/2020 01/26/2020 documented as of this encounter Insurance Payer Benefit Plan / Subscriber ID Effective Dates Phone Addre ss Type Group [facility] STAR xxxxxxxxx 2018-Present Medicaid COMM PLAN - PLUS MANAGED MEDICAID documented as of this encounter
--- OUTSIDE RECORDS SUMMARY | 2020-01-31 16:02 | XMS REPORT | Summary of Care ---
:1975 Author Organization [facility] Address [address] [place] [id number] Care Team Providers Name Role Phone Toi Insurance Hmo BHAVIN Oreilly Primary Care Provider Reason for Visit Reason Comments Appointment Assessment Refill Request Encounter Details Date Type Department Care Team Description 01/25/2020 Telephone [facility] Family Josh Oreilly FNP Appointment; Medicine - [address] Assessment; Refill [address] [place] [id number] [place] [phone] Allergies Active Allergy Reactions Severity Noted Date Comments Aspirin Hives 07/14/2005 Ciprofloxacin Hives 04/11/2017 Iodine And Iodide Containing Anaphylaxis 07/14/2005 Products Mushroom Other - See comments Low 06/12/2019 "pass o ut" Penicillin Hives 04/11/2017 Tramadol Other - See comments 03/08/2019 drowsin ess documented as of this encounter (statuses as of 01/25/2020) Medications Medication Sig Dispensed Refills Start Date [...] (scale 4-6). oxymetazoline 0.05 % Use 1 [place] in 15 mL 0 09/18/2017 Active nasal spray each nostril 2 (two) times daily. DISCARD AFTER 3 DAYS. USE MAY BE ADDICTIVE AFTER 4 DAYS USE. promethazine-codeine Take 5 mL by mouth 120 mL 0 09/18/2017 Active 6.25-10 mg/5 mL syrup 4 (four) times daily as needed for Cough. 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
--- OUTSIDE RECORDS SUMMARY | 2020-01-31 16:02 | XMS REPORT | Summary of Care ---
:1975 Author Organization [facility] Address [address] [place] [address] Care Team Providers Name Role Phone Toi Insurance Hmo BHAVIN Oreilly Primary Care Provider Encounter Details Date Type Department Care Team Description 01/26/2020 Letter (Out) [facility] Message s Doctor Unassigned, No [address] [facility] [place] [phone] [facility] [phone] [place] [address] Allergies Active Allergy Reactions Severity Noted Date Comments Aspirin Hives 07/14/2005 Ciprofloxacin Hives 04/11/2017 Iodine And Iodide Containing Anaphylaxis 07/14/2005 Products Mushroom Other - See comments Low 06/12/2019 "pass o ut" Penicillin Hives 04/11/2017 Tramadol Other - See comments 03/08/2019 drowsin ess documented as of this encounter (statuses as of 01/26/2020) Medications Medication Sig Dispensed Refills Start Date [...] (scale 4-6). oxymetazoline 0.05 % Use 1 [place] in 15 mL 0 09/18/2017 Active nasal spray each nostril 2 (two) times daily. DISCARD AFTER 3 DAYS. USE MAY BE ADDICTIVE AFTER 4 DAYS USE. promethazine-codeine Take 5 mL by mouth 120 mL 0 09/18/2017 Active 6.25-10 mg/5 mL syrup 4 (four) times daily as needed for Cough. 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
--- OUTSIDE RECORDS SUMMARY | 2020-01-31 16:03 | XMS REPORT | Summary of Care ---
:1975 Author Organization [facility] Address [address] [place] [address] Care Team Providers Name Role Phone Toi Insurance Hmo BHAVIN Oreilly Primary Care Provider Reason for Visit Reason Comments Refill Request Encounter Details Date Type Department Care Team Description 01/28/2020 Refill [facility] Family Medicine Kristen Villa FNP Refill Request - [address] [place] [address] [place] [phone] Allergies Active Allergy Reactions Severity Noted Date Comments Aspirin Hives 07/14/2005 Diphenhydramine Hcl Hives 01/26/2020 Ciprofloxacin Hives 04/11/2017 Iodine And Iodide Containing Anaphylaxis 07/14/2005 Products Mushroom Other - See comments Low 06/12/2019 "pass o ut" Penicillin Hives 04/11/2017 Tramadol Other - See comments 03/08/2019 drowsin ess documented as of this encounter (statuses as of 01/30/2020) Medications Medication Sig Dispensed Refills Start End [...] (scale 4-6). oxymetazoline 0.05 % Use 1 [place] in 15 mL 0 09/19/19 Active nasal spray each nostril 2 18 (two) times daily. DISCARD AFTER 3 DAYS. USE MAY BE ADDICTIVE AFTER 4 DAYS USE. promethazine-codeine Take 5 mL by 120 mL 0 09/19/19 Active 6.25-10 mg/5 mL syrup mouth 4 (four) 18 times daily as needed for Cough. sod Use 1 Bottle in 1 Each 0 09/19/19 Acti ve hmcdz-dywnua-idfwtq each nostril 2 18 bottle (NEILMED SINUS [...] Sore throat and spit, do not swallow HYDROcodone-acetamino Take 1 tablet 0 11/21/19 Active phen 7.5-325 mg per by mouth 2 20 tablet (two) times daily. aspirin 81 mg CHEW BY MOUTH 1 0 09/07/19 Active chewable tablet TABLET DAILY 20 methylPREDNISolone 4 Take by mouth 21 Each 0 01/26/2001/11 2/2 Active mg SEE-INSTRUCTION 20 020 tabletsIndications: [...] Gastroesophageal reflux disease, esophagitis presence not specified metFORMIN 1,000 mg Take 1 tablet 60 tablet 0 01/30/20 Active tabletIndications: by mouth 2 20 Type 2 diabetes (two) times mellitus with other daily with specified meals. complication, with long-term current use of insulin metFORMIN 1,000 mg Take 1 tablet 60 tablet 2 11/10/19 Discontinued tabletIndications: by mouth 2 20 020 (Reorder) Type 2 diabetes (two) times mellitus with other daily with specified meals. 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
--- OUTSIDE RECORDS SUMMARY | 2020-01-31 16:03 | XMS REPORT | Summary of Care ---
:1975 Author Organization [facility] Address [address] [place] [id number] Care Team Providers Name Role Phone Toi Insurance Hmo BHAVIN Oreilly Primary Care Provider Reason for Visit Reason Comments Results Encounter Details Date Type Department Care Team Description 01/27/2020 Telephone [facility] Family Medicine Kristen Villa FNP Results - [address] [place] [address] [place] [phone] Allergies Active Allergy Reactions Severity Noted Date Comments Aspirin Hives 07/14/2005 Diphenhydramine Hcl Hives 01/26/2020 Ciprofloxacin Hives 04/11/2017 Iodine And Iodide Containing Anaphylaxis 07/14/2005 Products Mushroom Other - See comments Low 06/12/2019 "pass o ut" Penicillin Hives 04/11/2017 Tramadol Other - See comments 03/08/2019 drowsin ess documented as of this encounter (statuses as of 01/27/2020) Medications Medication Sig Dispensed Refills Start Date End Date Status ondansetron 4 mg Take 1 tablet by 20 tablet 0 04/12/2017 Active disintegrating tablet mouth every 4 (four) hours as needed for Nausea and Vomiting (N/V). Butalbital-Acetaminophe Take 1 capsule by 20 capsule 0 017 Active n-Caff (FIORICET) mouth every 6 50-300-40 mg per (six) hours as capsule needed for Pain (scale 4-6). oxymetazoline 0.05 % Use 1 [place] in 15 mL 0 09/18/2017 Active nasal spray each nostril 2 (two) times daily. DISCARD AFTER 3 DAYS. USE MAY BE ADDICTIVE AFTER 4 DAYS USE. promethazine-codeine Take 5 mL by 120 mL 0 09/18/2017 Active 6.25-10 mg/5 mL syrup mouth 4 (four) times daily as needed for Cough. sod jnyuo-hlscyb-tviauo Use 1 Bottle in 1 Each 0 09/18/2017 Active bottle (NEILMED SINUS each nostril 2 RINSE COMPLETE) pkdv (two) times daily. Use in hot shower 1 hour before bedtime loratadine 10 mg tablet Take 1 tablet by 30 tablet 0 8 Active mouth daily. cyclobenzaprine 5 mg Take 1 tablet by 30 tablet 0 09/18/2017 Active tablet mouth 3 (three) times daily. ondansetron 4 mg Take 1 tablet by 20 tablet 0 02/27/2018 Active disintegrating tablet mouth every 8 (eight) hours as needed for Nausea and Vomiting (N/V). FLUoxetine 60 mg tablet Take by mouth. 0 Active atorvastatin 40 mg Take 40 mg by 0 Active tablet mouth at bedtime. amitriptyline 100 mg Take 100 mg by 0 Active tablet mouth at bedtime. Polyethylene Glycol Take 1 Packet by 5 Packet 0 03/09/2019 Active 3350 (MIRALAX) 17 gram mouth daily. powderIndications: Constipation, unspecified constipation type lactulose 10 gram/15 mL Take 30 mL by 1 Bottle 0 03/09/2019 Active oral mouth 3 (three) solutionIndications: times daily [...] tabletIndications: needed for Pain Toothache (scale 7-10). clotrimazole-betamethas Apply to area(s) 15 g 0 06/07/20 19 Active one (LOTRISONE) 2 (two) times creamIndications: daily. Candidal skin infection ibuprofen 800 mg Take 1 tablet by 21 tablet 0 06/13/2019 Active tabletIndications: mouth every 8 Cellulitis of left (eight) hours as lower extremity needed for Pain (scale 4-6). ondansetron 4 mg tablet TAKE 1 TABLET BY 0 0 Active MOUTH EVERY 4 HOURS NEEDED FOR NAUSEA sumatriptan succinate Take by mouth. 0 Active (IMITREX ORAL) Bismuth Subsalicylate Take 1 tablet by 30 tablet 0 11/03/2019 Active (PEPTO-BISMOL) 262 mg mouth 4 (four) tabletIndications: times daily as Diarrhea, unspecified needed type (diarrhea). acetaminophen 650 mg CR Take 1 tablet by 20 tablet 0 0 Active tabletIndications: Sore mouth every 8 throat (eight) hours as needed for Pain or Fever. nystatin/maalox/diphenh Take 5 mL by 120 mL 0 11/03/2019 Active ydrAMINE/lidocaine 2 % mouth 4 (four) viscous 1:1:1:1 Susp times daily as suspensionIndications: needed (Sore Sore throat Throat). Gargle and spit, do not swallow metFORMIN 1,000 mg Take 1 tablet by 60 tablet 2 11/10/2019 Active tabletIndications: Type mouth 2 (two) 2 diabetes mellitus times daily with with other specified meals. complication, with long-term current use of insulin HYDROcodone-acetaminoph Take 1 tablet by 0 0 Active en 7.5-325 mg per mouth 2 (two) tablet times daily. aspirin 81 mg chewable CHEW BY MOUTH 1 0 09/07/2019 Active tablet TABLET DAILY methylPREDNISolone 4 mg Take by mouth 21 Each 0 01/26/2020 Active tabletsIndications: SEE-INSTRUCTIONS 0 URI, acute for 6 days. follow package directions fluticasone (FLONASE Use 2 Sprays in 10 g 0 01/26/2020 Active SENSIMIST) 27.5 each nostril 0 mcg/actuation nasal daily for 30 sprayIndications: URI, days. acute albuterol (VENTOLIN Inhale 2 Puffs 8.5 g 0 01/26/202002/10 Active HFA) 90 mcg/actuation every 6 (six) 0 inhalerIndications: hours as needed Medication refill for Shortness of Breath for up to 30 days. omeprazole 40 mg Take 1 capsule by 30 capsule 2 01/26/2020 Active capsuleIndications: mouth daily. 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
--- OUTSIDE RECORDS SUMMARY | 2020-01-31 16:03 | XMS REPORT | Summary of Care ---
:1975 Author Organization [facility] Address [address] [place] [address] Care Team Providers Name Role Phone Toi Insurance Hmo BHAVIN Oreilly Primary Care Provider Reason for Visit Reason Comments Sore Throat started about a week ago. Sinus Problem been a while pt states Encounter Details Date Type Department Care Team Description 01/26/2020 Urgent Care [facility] Family Josh Oreilly FNP [facility] [address] [place] [phone] URI, acute (Primary Dx); Medicine - [place] [facility] Suspected Covid-19 Virus Infection; [address] [place] [address] [address] t; Drive Medication refill; [place], [place] Gastroesophagea l reflux disease, esophagitis presence [...] (scale 4-6). oxymetazoline 0.05 % Use 1 [place] in 15 mL 0 09/19/19 Active nasal spray each nostril 2 18 (two) times daily. DISCARD AFTER 3 DAYS. USE MAY BE ADDICTIVE AFTER 4 DAYS USE. promethazine-codeine Take 5 mL by 120 mL 0 09/19/19 Active 6.25-10 mg/5 mL syrup mouth 4 (four) 18 times daily as needed for Cough. 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 Kljo-wjk-sidmsun cold medicines will not shorten the length of time youre sick, but they may be helpful for the following symptoms: cough, sore throat, and nasal and sinus congestion. If you takeprescription medicines, ask your healthcare provider or pharmacist which wxsf-pbx-jedzpeg medicines are safe to use. (Note: Don't [...] it goes along with a muffled voice [employer] last reviewed this educational content on 12/11/201719996805-6849 [employer]. [address] [place] [address], [place] [address]. All rights reserved. This information is not [...] propionate 50 mcg/actuation nasal spray Use 1 [place] in each nostril daily. 16 g 0 [...] oxymetazoline 0.05 % nasal spray Use 1 [place] in each nostril 2 (two) times daily. DISCARD AFTER 3 DAYS. USE MAY BE ADDICTIVE AFTER 4 DAYS USE. 15 mL 0 promethazine-codeine 6.25-10 mg/5 mL syrup Take 5 mL by mouth 4 (four) times daily as needed forCough. 120 mL 0 sod wbcrl-uiznmx-acbxiq bottle (NEILMED SINUS RINSE COMPLETE) pkdv Use 1 Bottle in each nostril 2 (two) times daily. Use in hot shower 1 hour before bedtime 1 Each 0 Gbefcjkrrv-Ijaxhsyjrrzmc-Pkti (FIORICET) 50-300-40 mg per capsule Take 1 [...] file Gets together: Not on file Attends pentecostal service: Not on file Active member of [...] air moist and relieve throat dryness. Try jcho-dte-aktszzr pain relievers such as acetaminophen or ibuprofen. [...] (53.1 kg) Height: 4' 9" (1.448 m) [facility]/pharmacy #[id number] All Vitals taken, allergies and all [...]
[2020-01-31] MEDS ORDERED: NA CHLORIDE 0.9% 1,000 ML ONE (16:21)
[2020-01-31] MEDS ORDERED: INSULIN -REGULAR HUMAN 50 UNIT/0.5 ML ML ONE (16:44)
[2020-01-31 16:46] LABS: Absolute Lymphocytes (CBC) 3.5 K/uL (0.7-4.9); Basophils % 0.5 % (0-1.3); Hematocrit 44.1 % (36.0-45.0); Lymphocytes % 23.6 % (15.3-44.8); MPV 7.9 fL (7.6-11.3); RBC Red Blood Cell Count 5.35 M/uL (3.86-4.86)
[2020-01-31 17:12] LABS: BUN Blood Urea Nitrogen 16 mg/dL (7-18); Bicarbonate 25 mmol/L (21-32); Potassium 4.6 mmol/L (3.5-5.1); Sodium Level 134 mmol/L (136-145)
[2020-01-31 17:14] LABS: Glucose Level 506 mg/dL (74-106)
[2020-01-31 18:01] LABS: Urine Blood TRACE (NEG); Urine Glucose 2+ (NEG); Urine Protein 1+ (NEG); Urine Specific Gravity 1.015 (1.005-1.030)
[2020-01-31 18:02] LABS: Urine Specific Gravity 1.015 (1.005-1.030)
--- NOTE | 2020-01-31 18:45 | EDPHYS ---
Physician Documentation [facility] Name: Barb Cortez Age: 44 yrs Sex: Female : 1975 Arrival Date: 01/31/2020 Time: 16:03 Bed 2 Private MD: ED Physician Gil Boswell HPI: 01/30 17:26 This 44 yrs old Female presents to ER via EMS with complaints of High Blood rn Sugar. 17:26 The patient or guardian reports hyperglycemia. Onset: The symptoms/episode rn began/occurred at an unknown time. Current symptoms: In the emergency department the patient's symptoms are unchanged from the initial presentation. The patient has experienced similar episodes in the past. Reports out of insulin for 1 year, blood sugar elevated, no fever, reports increased thirst and urination. Unable to get insulin refilled, but has been taking her metformin. No cough/sob/chest pain/abd pain. . 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 jl7 Historical: - Allergies: 17:59 Aspirin; jl7 17:59 Benadryl; jl7 17:59 Ciprofloxacin; jl7 17:59 IV contrast; jl7 17:59 PENICILLINS; jl7 17:59 Toradol; jl7 17:59 Tramadol HCl; jl7 - Home Meds: 17:59 Abilify 40 mg Oral tab once daily [Active]; Humalog 100 unit/mL Sub-Q soln (Last Dose: jl7 01/30/2019) [Active]; Humulin 70/30 100 unit/mL (70-30) Sub-Q susp (Last Dose: 01/30/2019) [Active]; Lantus 100 unit/mL Sub-Q soln (Last Dose: 01/30/2019) [Active]; Lexapro 20 mg Oral tab 1 tab nightly [Active]; metformin 1,000 mg Oral tab 1 tab 2 times per day [Active]; atorvastatin oral oral [Active]; - PMHx: 17:59 Bipolar disorder; Depression; Diabetes - IDDM; Hyperlipidemia; Hypertension; Kidney jl7 stones; Migraines; Chronic kidney disease; - PSHx: 17:59 Right Nephrectomy; jl7 - Immunization history:: Adult Immunizations unknown. - Social history:: Smoking status: unknown. - Family history:: not pertinent. - Hospitalizations: : No recent hospitalization is reported. ROS: 17:26 Constitutional: Negative for fever, chills, and weight loss, Eyes: Negative for injury, rn pain, redness, and discharge, Neck: Negative for injury, pain, and swelling, Cardiovascular: Negative for chest pain, palpitations, and edema, Respiratory: Negative for shortness of breath, cough, wheezing, and pleuritic chest pain, Abdomen/GI: Negative for abdominal pain, nausea, vomiting, diarrhea, and constipation, MS/Extremity: Negative for injury and deformity, Skin: Negative for injury, rash, and discoloration, Neuro: Negative for headache,numbness, tingling, and seizure. Exam: 17:26 Constitutional: This is a well developed, well nourished patient who is awake, alert, rn and in no acute distress. Head/Face: Normocephalic, atraumatic. Cardiovascular: Regular rate and rhythm. No pulse deficits. Respiratory: No increased work of breathing, no retractions or nasal flaring. Abdomen/GI: soft, non-tender Skin: Warm, dry MS/ Extremity: Pulses equal, no cyanosis. Neuro: Awake and alert, GCS 15, oriented to person, place, time, and situation. 18:46 ECG was reviewed by the Attending Physician. rn Vital Signs: 16:00 BP 77 / 55; Pulse 90; Resp 19 S; Temp 97.9(TE); Pulse Ox 97% on R/A; Pain 0/10; jl7 16:30 BP 88 / 42; Pulse 87; Resp 15; Pulse Ox 98% ; jl7 17:00 BP 103 / 63; Pulse 83; Resp 17; Pulse Ox 99% ; jl7 17:30 BP 100 / 64; Pulse 86; Resp 16; Pulse Ox 100% ; jl7 18:00 BP 122 / 68; Pulse 85; Resp 17 S; Pulse Ox 100% on R/A; Pain 0/10; jl7 MDM: 16:07 Patient medically screened. rn 18:43 Differential diagnosis: DKA, hyperglycemia. Data reviewed: vital signs, nurses notes, admissions manager rn test result(s), EKG, radiologic studies, and as a result, I will discharge patient. Counseling: I had a detailed discussion with the patient and/or guardian regarding: the historical points, exam findings, and any diagnostic results supporting the discharge/admit diagnosis, lab results, the need for outpatient follow up, to return to the emergency department if symptoms worsen or persist or if there are any questions or concerns that arise at home. Response to treatment: the patient's symptoms have markedly improved after treatment, and as a result, I will discharge patient. Special discussion: I discussed with the patient/guardian in detail that at this point there is no indication for admission to the hospital. It is understood, however, that if the symptoms persist or worsen the patient needs to return immediately for re-evaluation. ED course: Pt improved, glucose down to 277, normal vitals, no AG, neg ketones, will refill lantus and have pt f/u with pcp. . 01/30 16:04 Order name: CBC with Diff; Complete Time: 16:55 01/30 16:04 Order name: Basic Metabolic Panel; Complete Time: 17:25 rn 01/30 16:04 Order name: Ketone, Serum; Complete Time: 17:25 01/30 16:04 Order name: Urine Microscopic Only rn 01/30 16:28 Order name: Glucose; Complete Time: 17:25 jl7 01/30 16:38 Order name: Glucose, Ancillary Testing; Complete Time: 16:55 EDAK 01/30 16:04 Order name: IV Start; Complete Time: 16:30 rn 01/30 16:04 Order name: EKG; Complete Time: 16:05 rn 01/30 18:00 Order name: Urine Dipstick--Ancillary (enter results); Complete Time: 18:17 bd 01/30 18:01 Order name: Urine --Ancillary (enter results); Complete Time: 18:17 01/30 18:10 Order name: Glucose, Ancillary Testing; Complete Time: 18:17 EDMS 01/30 16:04 Order name: Glucose Level; Complete Time: 16:29 rn 01/30 16:04 Order name: EKG - Nurse/Tech; Complete Time: 18:37 rn 01/30 16:04 Order name: Urine Dipstick-Ancillary (obtain specimen); Complete Time: 18:15 rn EC:46 Rate is 88 beats/min. Rhythm is regular. QRS [place] is Normal. IN interval is normal. QRS rn interval is normal. QT interval is normal. No Q waves. T waves are Normal. No ST changes noted. Clinical impression: Normal ECG. Interpreted by me. Reviewed by me. Administered Medications: 16:28 Drug: NS 0.9% 1000 ml Route: IV; Rate: 1000 ml; Site: left forearm; [facility] 18:00 Follow up: Response: No adverse reaction; IV Status: Completed infusion; IV Intake: jl7 1000ml 16:45 Drug: Insulin Regular Human 10 units {Co-Signature: [email or web address] (Corin London RN).} Route: jl7 Sub-Q; Site: left upper arm; 18:00 Follow up: Response: No adverse reaction; Blood sugar is lowered jl7 16:45 Drug: Insulin Regular Human 10 units {Co-Signature: [email or web address] (Corin London RN).} Route: jl7 IVP; Site: left forearm; 18:00 Follow up: Response: No adverse reaction; Blood sugar is lowered jl7 Disposition: 01/31/20 18:44 Discharged to Home. Impression: Hyperglycemia, unspecified. - Condition is Stable. - Discharge Instructions: Hyperglycemia, Blood Glucose Monitoring, Adult. - Prescriptions for Lantus Solostar - inject 45 unit by SUBCUTANEOUS route once daily; 1 packet. - Medication Reconciliation Form, Thank You Letter, Antibiotic Education, Prescription Opioid Use form. - Follow up: Private Physician; When: 2 - 3 days; Reason: Recheck today's complaints, Re-evaluation by your physician. - Problem is an ongoing problem. - Symptoms have improved. Signatures: Dispatcher [employer] EDMS Gil Boswell MD MD rn Attema, Lee, AUTOMOTIVE INSTRUCTOR-C AUTOMOTIVE INSTRUCTOR-Cla1 Tawana Johnson RN RN jl7 Corin London RN [email or web address] Corrections: (The following items were deleted from the chart) 19:27 18:44 01/31/2020 18:44 Discharged to Home. Impression: Hyperglycemia, unspecified. jl7 Condition is Stable. Forms are Medication Reconciliation Form, Thank You Letter, Antibiotic Education, Prescription Opioid Use. Follow up: Private Physician; When: 2 - 3 days; Reason: Recheck today's complaints, Re-evaluation by your physician. Problem is an ongoing problem. Symptoms have improved. rn
--- NOTE | 2020-01-31 18:45 | ER ---
Nurse's Notes [facility] Name: Barb Cortez Age: 44 yrs Sex: Female : 1975 Arrival Date: 01/31/2020 Time: 16:03 Bed 2 Private MD: Diagnosis: Hyperglycemia, unspecified Presentation: 01/30 16:00 Initial Sepsis Screen: Does the patient meet any 2 criteria? No. Patient's initial [facility] sepsis screen is negative. Does the patient have a suspected source of infection? No. Patient's initial sepsis screen is negative. Risk Assessment: Do you want to hurt yourself or someone else? Patient reports no desire to harm self or others. 16:00 Care prior to arrival: None. Transition of care: patient was not received from another [facility] setting of care. 16:04 Chief complaint: EMS states: BGL 552 and pt out of insulin for weeks now. Coronavirus [facility] screen: Patient denies a cough. Patient denies shortness of breath or difficulty breathing. Patient denies measured and/or subjective temperature greater than 100.4F prior to today's visit. Patient denies travel on a cruise ship or to a country the [facility] currently lists as an affected area. Patient denies contact with known and/or suspected case of COVID-19. Proceed with normal triage. Ebola Screen: No symptoms or risks identified at this time. Onset of symptoms was January 31, 2020. 16:04 Method Of Arrival: EMS: [facility] 16:04 Acuity: HARI 2 7 Triage Assessment: 16:00 General: Appears in no apparent distress. uncomfortable, Behavior is calm, cooperative, jl7 appropriate for age. Pain: Denies pain. Neuro: Level of Consciousness is awake, alert, obeys commands, Oriented to person, place, time, situation. Cardiovascular: Patient's skin is warm and dry. Respiratory: Airway is patent Respiratory effort is even, unlabored, Respiratory pattern is regular, symmetrical. GI: Reports nausea, vomiting. : No signs and/or symptoms were reported regarding the genitourinary system. Denies burning with urination, pain. Derm: Skin is pink, warm \T\ dry. 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 LMP 20107 Historical: - Allergies: 17:59 Aspirin; jl7 17:59 Benadryl; jl7 17:59 Ciprofloxacin; jl7 17:59 IV contrast; jl7 17:59 PENICILLINS; jl7 17:59 Toradol; jl7 17:59 Tramadol HCl; jl7 - Home Meds: 17:59 Abilify 40 mg Oral tab once daily [Active]; Humalog 100 unit/mL Sub-Q soln (Last Dose: jl7 01/30/2019) [Active]; Humulin 70/30 100 unit/mL (70-30) Sub-Q susp (Last Dose: 01/30/2019) [Active]; Lantus 100 unit/mL Sub-Q soln (Last Dose: 01/30/2019) [Active]; Lexapro 20 mg Oral tab 1 tab nightly [Active]; metformin 1,000 mg Oral tab 1 tab 2 times per day [Active]; atorvastatin oral oral [Active]; - PMHx: 17:59 Bipolar disorder; Depression; Diabetes - IDDM; Hyperlipidemia; Hypertension; Kidney jl7 stones; Migraines; Chronic kidney disease; - PSHx: 17:59 Right Nephrectomy; jl7 - Immunization history:: Adult Immunizations unknown. - Social history:: Smoking status: unknown. - Family history:: not pertinent. - Hospitalizations: : No recent hospitalization is reported. Screenin:00 Abuse screen: Denies threats or abuse. Denies injuries from another. Nutritional jl7 screening: No deficits noted. Tuberculosis screening: No symptoms or risk factors identified. Fall Risk IV access (20 points). Assessment: 16:00 General: See triage assessment. jl7 16:15 Reassessment: Pt's 15 year old daughter arrived to ED with pt via EMS. EMS reports jl7 daughter had to accompany pt due to a CPS order that daughter cannot be left alone due to recent suicidal ideation. 17:15 Reassessment: Patient appears in no apparent distress at this time. No changes from jl7 previously documented assessment. Patient and/or family updated on plan of care and expected duration. Pain level reassessed. Patient is alert, oriented x 3, equal unlabored respirations, skin warm/dry/pink. 18:14 Reassessment: Patient appears in no apparent distress at this time. No changes from jl7 previously documented assessment. Patient and/or family updated on plan of care and expected duration. Pain level reassessed. Patient is alert, oriented x 3, equal unlabored respirations, skin warm/dry/pink. 18:15 Reassessment: FSBS 277. jl7 18:40 Reassessment: Dr. Boswell at bedside discussing results and POC. jl7 Vital Signs: 16:00 BP 77 / 55; Pulse 90; Resp 19 S; Temp 97.9(TE); Pulse Ox 97% on R/A; Pain 0/10; jl7 16:30 BP 88 / 42; Pulse 87; Resp 15; Pulse Ox 98% ; jl7 17:00 BP 103 / 63; Pulse 83; Resp 17; Pulse Ox 99% ; jl7 17:30 BP 100 / 64; Pulse 86; Resp 16; Pulse Ox 100% ; jl7 18:00 BP 122 / 68; Pulse 85; Resp 17 S; Pulse Ox 100% on R/A; Pain 0/10; jl7 ED Course: 16:00 Arm band placed on right wrist. jl7 16:00 Patient has correct armband on for positive identification. Placed in gown. Bed in low jl7 position. Call light in reach. Side rails up X2. traffic monitor specialist on. Pulse ox on. NIBP on. Warm blanket given. 16:03 Patient arrived in ED. jl7 16:03 Gil Boswell MD is Attending Physician. rn 16:05 Triage completed. jl7 16:27 Tawana Johnson, MARIA ALEJANDRA is Primary Nurse. jl7 16:30 Initial lab(s) drawn, by md, sent to lab. Urine collected: straight cath specimen, jl7 cloudy. Inserted saline lock: 20 gauge in left forearm, using aseptic technique. Blood collected. 19:27 No provider procedures requiring assistance completed. IV discontinued, intact, jl7 bleeding controlled, No redness/swelling at site. Pressure dressing applied. Administered Medications: 16:28 Drug: NS 0.9% 1000 ml Route: IV; Rate: 1000 ml; Site: left forearm; jl7 18:00 Follow up: Response: No adverse reaction; IV Status: Completed infusion; IV Intake: jl7 1000ml 16:45 Drug: Insulin Regular Human 10 units {Co-Signature: [email or web address] (Corin London RN).} Route: jl7 Sub-Q; Site: left upper arm; 18:00 Follow up: Response: No adverse reaction; Blood sugar is lowered jl7 16:45 Drug: Insulin Regular Human 10 units {Co-Signature: [email or web address] (Corin London RN).} Route: jl7 IVP; Site: left forearm; 18:00 Follow up: Response: No adverse reaction; Blood sugar is lowered jl7 Intake: 18:00 IV: 1000ml; Total: 1000ml. jl7 Outcome: 18:44 Discharge ordered by . rn 19:27 Discharged to home via wheelchair, with family. 7 19:27 Condition: stable 19:27 Discharge instructions given to patient, Instructed on discharge instructions, follow up and referral plans. medication usage, Demonstrated understanding of instructions, follow-up care, medications, Prescriptions given X 1. 19:27 Patient left the ED. jl7 Addendum: 02/03/2020 13:27 Addendum: Culture Results: Positive urine culture. No further action required. Other: h b Asymptomatic . Signatures: Gil Boswell MD MD rn Baxter, Heather, RN RN hb Leal, Jahala, RN RN jl7 Corin London RN [email or web address]
[2020-01-31 20:01] LABS: Urine Bacteria >50 /HPF (<20); Urine Culture Reflex Order REFLEXED; Urine RBC <5 /HPF (NONE SEEN)
[2020-02-01 10:06] VITALS: TEMP 97.9
[2020-02-01 10:12] VITALS: O2SAT 100
[2020-02-01 10:17] VITALS: BP 122/68
--- NOTE | 2020-02-01 12:34 | EKG ---
Test Date: 2020-01-31 Test Time: 18:43:06 Senior Architect: OSIEL MEASUREMENT RESULTS: Intervals: Rate: 88 DC: 132 QRSD: 74 QT: 374 QTc: 452 [place]: P: 69 DC: 132 QRS: 53 T: 78 INTERPRETIVE STATEMENTS: Normal sinus rhythm Normal ECG Compared to ECG 07/18/2018 17:42:31 No significant changes Electronically Signed On 02-01-20 12:31:28 CDT by Umberto Perez
== END 2020-01-31 19:27 | disposition home or self-care (01) ==
LOC: ER 15:54
DX: E11.65 Type 2 diabetes mellitus with hyperglycemia (principal); E11.22 Type 2 diabetes mellitus with diabetic chronic kidney disease; I12.9 Hypertensive chronic kidney disease with stage 1 through stage 4 chronic kidney disease, or unspecified chronic kidney disease; N18.9 Chronic kidney disease, unspecified; Z79.4 Long term (current) use of insulin; F31.9 Bipolar disorder, unspecified; Z88.0 Allergy status to penicillin; Z88.1 Allergy status to other antibiotic agents; Z88.5 Allergy status to narcotic agent; Z88.6 Allergy status to analgesic agent; Z88.8 Allergy status to other drugs, medicaments and biological substances; Z91.041 Radiographic dye allergy status; Z91.048 Other nonmedicinal substance allergy status
CPT/HCPCS: 96361; 93005; 87088; 85025; 87086; 80048; 36415; 82010; 82947 ×3; 81025; 87077; 87186; 96372; 96374; 99284; J7030; 81003; 81015

== ENCOUNTER 2020-02-09 00:50 | Emergency (ER) | payer OTHER ==
--- OUTSIDE RECORDS SUMMARY | 2020-02-09 00:52 | XMS REPORT | Continuity of Care Document ---
:1975 Author Organization [facility] t Address [address] [place] [address] Care Team Providers Name Role Phone Milton MON Attending Clinician Jung Monk MD Attending Clinician Problems This patient has no known problems. Allergies, Adverse Reactions, Alerts This patient has no known allergies or adverse reactions. Medications This patient has no known medications. Procedures This patient has no known procedures. Encounters Start End Encounter Admission Attending Care Care Encounter Source Date/Time Date/Time Type Type Clinicians Facility Department ID 2020-02-02 2020-02-02 [facility] [id number] 00:00:00 00:00:00 Burak Morales [id number] [place] [id number] Profyasmin [id number] [address] 2020-02-02 2020-02-02 [facility] [id number] 00:00:00 00:00:00 Ara Morales [id number] [place] [id number] Profrubinio [id number] [address] 2020-02-02 2020-02-02 [facility] [id number] 00:00:00 00:00:00 Ara Morales [id number] [place] [id number] [facility] [id number] [facility] 044 Building Results This patient has no known results.
--- OUTSIDE RECORDS SUMMARY | 2020-02-09 01:06 | XMS REPORT | Summary of Care ---
:1975 Author Organization [facility] Address [address] [place] [address] Care Team Providers Name Role Phone Toi Insurance Hmo BHAVIN Oreilly Primary Care Provider Encounter Details Date Type Department Care Team Description 02/01/2020 Letter (Out) [facility] Family Josh Oreilly FNP Medicine - [address] [place] [address] [place] [phone] Allergies Active Allergy Reactions Severity Noted Date Comments Aspirin Hives 07/14/2005 Diphenhydramine Hcl Hives 01/26/2020 Ciprofloxacin Hives 04/11/2017 Iodine And Iodide Containing Anaphylaxis 07/14/2005 Products Mushroom Other - See comments Low 06/12/2019 "pass o ut" Penicillin Hives 04/11/2017 Tramadol Other - See comments 03/08/2019 drowsin ess documented as of this encounter (statuses as of 02/01/2020) Medications Medication Sig Dispensed Refills Start Date [...] (scale 4-6). oxymetazoline 0.05 % Use 1 [place] in 15 mL 0 09/18/2017 Active nasal spray each nostril 2 (two) times daily. DISCARD AFTER 3 DAYS. USE MAY BE ADDICTIVE AFTER 4 DAYS USE. promethazine-codeine Take 5 mL by 120 mL 0 09/18/2017 Active 6.25-10 mg/5 mL syrup mouth 4 (four) times daily as needed for Cough. sod bkahi-qefkld-zssulk Use 1 Bottle in 1 Each 0 [...] Throat). Gargle and spit, do not swallow HYDROcodone-acetaminoph Take 1 tablet by 0 0 [...] specified metFORMIN 1,000 mg Take 1 tablet by 60 tablet 0 01/30/2020 Active tabletIndications: Type mouth 2 (two) 2 diabetes mellitus times daily with with other specified meals. 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
--- OUTSIDE RECORDS SUMMARY | 2020-02-09 01:07 | XMS REPORT | Summary of Care ---
:1975 Author Organization [facility] Address [address] [place] [address] Care Team Providers Name Role Phone Toi Insurance Hmo BHAVIN Oreilly Primary Care Provider Reason for Visit Reason Comments Erroneous encounter-disregard Encounter Details Date Type Department Care Team Description 02/02/2020 Telephone [facility] Pediatric Priscilla Oreilly FNP Erroneous and Adult Primary [address] encounter-disregard Care- [facility] [address] [place] [address], [address] [address] [place], [place] [phone] [address] [phone] Allergies Active Allergy Reactions Severity Noted Date Comments Aspirin Hives 07/14/2005 Diphenhydramine Hcl Hives 01/26/2020 Ciprofloxacin Hives 04/11/2017 Iodine And Iodide Containing Anaphylaxis 07/14/2005 Products Mushroom Other - See comments Low 06/12/2019 "pass o ut" Penicillin Hives 04/11/2017 Tramadol Other - See comments 03/08/2019 drowsin ess documented as of this encounter (statuses as of 02/02/2020) Medications Medication Sig Dispensed Refills Start Date [...] (scale 4-6). oxymetazoline 0.05 % Use 1 [place] in 15 mL 0 09/18/2017 Active nasal spray each nostril 2 (two) times daily. DISCARD AFTER 3 DAYS. USE MAY BE ADDICTIVE AFTER 4 DAYS USE. promethazine-codeine Take 5 mL by mouth 120 mL 0 09/18/2017 Active 6.25-10 mg/5 mL syrup 4 (four) times daily as needed for Cough. sod Use 1 Bottle in 1 Each 0 09/18/2017 Act yari jtoaa-dryarp-ipqksp each nostril 2 bottle (NEILMED SINUS (two) [...] throat Gargle and spit, do not swallow HYDROcodone-acetaminop Take 1 tablet by 0 11/21/2019 Active hen 7.5-325 mg per mouth 2 (two) tablet times daily. aspirin 81 mg chewable CHEW BY MOUTH 1 0 09/07/2019 Active tablet TABLET DAILY fluticasone (FLONASE Use 2 Sprays in 10 g 0 01/26/2020 Active SENSIMIST) 27.5 each nostril daily 0 mcg/actuation nasal for 30 days. sprayIndications: URI, acute albuterol (VENTOLIN Inhale 2 Puffs [...] by 60 tablet 0 01/30/2020 Active tabletIndications: mouth 2 (two) Type 2 diabetes times daily with mellitus with other meals. 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 STAR xxxxxxxxx 2018-Present Medicaid COMM PLAN - PLUS MANAGED MEDICAID documented as of this encounter
--- OUTSIDE RECORDS SUMMARY | 2020-02-09 01:08 | XMS REPORT | Summary of Care ---
:1975 Author Organization [facility] Address [address] [place] [address] Care Team Providers Name Role Phone Toi Insurance Hmo BHAVIN Oreilly Primary Care Provider Reason for Visit Reason Comments Assessment Encounter Details Date Type Department Care Team Description 02/02/2020 Telephone [facility] Pediatric and Burak Rose MD Assessment Adult Primary Care- [address] [place] [address] [place] [address], [phone] [address] [place] [address] Allergies Active Allergy Reactions Severity Noted Date Comments Aspirin Hives 07/14/2005 Diphenhydramine Hcl Hives 01/26/2020 Ciprofloxacin Hives 04/11/2017 Iodine And Iodide Containing Anaphylaxis 07/14/2005 Products Mushroom Other - See comments Low 06/12/2019 "pass o ut" Penicillin Hives 04/11/2017 Tramadol Other - See comments 03/08/2019 drowsin ess documented as of this encounter (statuses as of 02/03/2020) Medications Medication Sig Dispensed Refills Start Date [...] (scale 4-6). oxymetazoline 0.05 % Use 1 [place] in 15 mL 0 09/18/2017 Active nasal spray each nostril 2 (two) times daily. DISCARD AFTER 3 DAYS. USE MAY BE ADDICTIVE AFTER 4 DAYS USE. promethazine-codeine Take 5 mL by mouth 120 mL 0 09/18/2017 Active 6.25-10 mg/5 mL syrup 4 (four) times daily as needed for Cough. 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
--- OUTSIDE RECORDS SUMMARY | 2020-02-09 01:09 | XMS REPORT | Summary of Care ---
:1975 Author Organization [facility] Address [address] [place] [address] Care Team Providers Name Role Phone Toi Insurance Hmo BHAVIN Oreilly Primary Care Provider Encounter Details Date Type Department Care Team Description 01/19/2020 Orders Only [facility] Doctor Unassigned, No [address] [facility] [place] [address] [address] [place] [address] Allergies Active Allergy Reactions Severity Noted Date Comments Aspirin Hives 07/14/2005 Diphenhydramine Hcl Hives 01/26/2020 Ciprofloxacin Hives 04/11/2017 Iodine And Iodide Containing Anaphylaxis 07/14/2005 Products Mushroom Other - See comments Low 06/12/2019 "pass o ut" Penicillin Hives 04/11/2017 Tramadol Other - See comments 03/08/2019 drowsin ess documented as of this encounter (statuses as of 02/06/2020) Medications Medication Sig Dispensed Refills Start Date [...] (scale 4-6). oxymetazoline 0.05 % Use 1 [place] in 15 mL 0 09/18/2017 Active nasal spray each nostril 2 (two) times daily. DISCARD AFTER 3 DAYS. USE MAY BE ADDICTIVE AFTER 4 DAYS USE. promethazine-codeine Take 5 mL by mouth 120 mL 0 09/18/2017 Active 6.25-10 mg/5 mL syrup 4 (four) times daily as needed for Cough. sod Use 1 Bottle in 1 Each 0 09/18/2017 Act yari bpiep-zmwmna-ieslqp each nostril 2 bottle (NEILMED SINUS (two) [...] spit, : Sore throat do not swallow HYDROcodone-acetamino Take 1 tablet by 0 11/21/2019 Active phen 7.5-325 mg per mouth 2 (two) tablet times daily. 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 documented as of this encounter (statuses as of 02/06/2020) Social History Tobacco Use Types Packs/Day Years [...] Name Priority Date/Time Associated Diagnosis Comme nts INSURANCE CORRESPONDENCE Routine 01/19/2020 12:01 AM CDT documented in this encounter Results Not on filedocumented in this encounter Additional Health Concerns Infection Onset Date Last Indicated Resolved Time COVID-19 Rule Out 01/26/2020 01/26/2020 01/27/2020 1: 01 PM CDT documented as of this encounter Insurance Payer Benefit Plan / Subscriber ID Effective Dates Phone Addre ss Type Group [facility] STAR xxxxxxxxx 2018-Present Medicaid COMM PLAN - PLUS MANAGED MEDICAID documented as of this encounter
--- OUTSIDE RECORDS SUMMARY | 2020-02-09 01:10 | XMS REPORT | Summary of Care ---
:1975 Author Organization [facility] Address [address] [place] [address] Care Team Providers Name Role Phone Toi Insurance Hmo BHAVIN Oreilly Primary Care Provider Reason for Visit Reason Comments Assessment Encounter Details Date Type Department Care Team Description 02/02/2020 Telephone [facility] Pediatric and Burak Rose MD Assessment Adult Primary Care- [address] [place] [address] [place] [address], [phone] [address] [place] [address] Allergies Active Allergy Reactions Severity Noted [...] (scale 4-6). oxymetazoline 0.05 % Use 1 [place] in 15 mL 0 09/18/2017 Active nasal spray each nostril 2 (two) times daily. DISCARD AFTER 3 DAYS. USE MAY BE ADDICTIVE AFTER 4 DAYS USE. promethazine-codeine Take 5 mL by mouth 120 mL 0 09/18/2017 Active 6.25-10 mg/5 mL syrup 4 (four) times daily as needed for Cough. 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
--- OUTSIDE RECORDS SUMMARY | 2020-02-09 01:10 | XMS REPORT | Summary of Care ---
:1975 Author Organization [facility] Address [address] [place] [address] Care Team Providers Name Role Phone Toi Insurance Hmo BHAVIN Oreilly Primary Care Provider Reason for Visit Reason Comments Assessment Encounter Details Date Type Department Care Team Description 02/02/2020 Telephone [facility] Pediatric and Burak Rose MD Assessment Adult Primary Care- [address] [place] [address] [place] [address], [phone] [address] [place] [address] Allergies Active Allergy Reactions Severity Noted [...] (scale 4-6). oxymetazoline 0.05 % Use 1 [place] in 15 mL 0 09/18/2017 Active nasal spray each nostril 2 (two) times daily. DISCARD AFTER 3 DAYS. USE MAY BE ADDICTIVE AFTER 4 DAYS USE. promethazine-codeine Take 5 mL by mouth 120 mL 0 09/18/2017 Active 6.25-10 mg/5 mL syrup 4 (four) times daily as needed for Cough. 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
--- OUTSIDE RECORDS SUMMARY | 2020-02-09 01:12 | XMS REPORT | Summary of Care ---
:1975 Author Organization [facility] Address [address] [place] [address] Care Team Providers Name Role Phone Toi Insurance Hmo BHAVIN Oreilly Primary Care Provider Reason for Visit Reason Comments Refill Request Encounter Details Date Type Department Care Team Description 02/02/2020 Telephone [facility] Pediatric and Ara Rangel MD Refill Request Adult Primary Care- [address] [place] [address] [place] [address], [address] [place] [address] Allergies Active Allergy Reactions Severity Noted Date Comments Aspirin Hives 07/14/2005 Diphenhydramine Hcl Hives 01/26/2020 Ciprofloxacin Hives 04/11/2017 Iodine And Iodide Containing Anaphylaxis 07/14/2005 Products Mushroom Other - See comments Low 06/12/2019 "pass o ut" Penicillin Hives 04/11/2017 Tramadol Other - See comments 03/08/2019 drowsin ess documented as of this encounter (statuses as of 02/08/2020) Medications Medication Sig Dispensed Refills Start Date [...] (scale 4-6). oxymetazoline 0.05 % Use 1 [place] in 15 mL 0 09/18/2017 Active nasal spray each nostril 2 (two) times daily. DISCARD AFTER 3 DAYS. USE MAY BE ADDICTIVE AFTER 4 DAYS USE. promethazine-codeine Take 5 mL by mouth 120 mL 0 09/18/2017 Active 6.25-10 mg/5 mL syrup 4 (four) times daily as needed for Cough. 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
--- OUTSIDE RECORDS SUMMARY | 2020-02-09 01:12 | XMS REPORT | Summary of Care ---
:1975 Author Organization [facility] Address [address] [place] [address] Care Team Providers Name Role Phone Toi Insurance Hmo BHAVIN Oreilly Primary Care Provider Reason for Visit Reason Comments Refill Request Encounter Details Date Type Department Care Team Description 02/02/2020 Telephone [facility] Pediatric and Ara Rangel MD Refill Request Adult Primary Care- [address] [place] [address] [place] [address], [phone] [address] [place] [address] Allergies Active Allergy Reactions Severity Noted [...] (scale 4-6). oxymetazoline 0.05 % Use 1 [place] in 15 mL 0 09/18/2017 Active nasal spray each nostril 2 (two) times daily. DISCARD AFTER 3 DAYS. USE MAY BE ADDICTIVE AFTER 4 DAYS USE. promethazine-codeine Take 5 mL by mouth 120 mL 0 09/18/2017 Active 6.25-10 mg/5 mL syrup 4 (four) times daily as needed for Cough. 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
--- NOTE | 2020-02-09 01:15 | EDPHYS ---
Physician Documentation [facility] Name: Barb Cortez Age: 44 yrs Sex: Female : 1975 Arrival Date: 02/09/2020 Time: 00:55 Bed 5 Private MD: ED Physician Gil Boswell HPI: 02/08 01:10 This 44 yrs old Female presents to ER via Wheelchair with complaints of rn Insect Bite, Ankle Injury. 01:10 The patient presents with pain, that is acute. The complaints affect the left ankle. rn Onset: The symptoms/episode began/occurred at an unknown time. Modifying factors: The symptoms are alleviated by nothing, the symptoms are aggravated by nothing. The patient has not experienced similar symptoms in the past. Reports noticed pain to left ankle yesterday, no known injury, today looking at ankle, looked puffy and noticed a red area with hole in center, thought maybe a spider bit her, no fever. No drainage. . Historical: - Allergies: 01:11 Aspirin; ea 01:11 Benadryl; ea 01:11 Ciprofloxacin; ea 01:11 PENICILLINS; ea 01:11 Toradol; ea 01:11 IV contrast; ea 01:11 Tramadol HCl; ea - Home Meds: 01:11 Abilify 40 mg Oral tab once daily [Active]; atorvastatin Oral [Active]; Humalog 100 ea unit/mL Sub-Q soln [Active]; Humulin 70/30 100 unit/mL (70-30) Sub-Q susp [Active]; Lantus 100 unit/mL Sub-Q soln [Active]; Lexapro 20 mg Oral tab 1 tab nightly [Active]; metformin 1,000 mg Oral tab 1 tab 2 times per day [Active]; - PMHx: 01:11 Migraines; Kidney stones; Hypertension; Hyperlipidemia; Diabetes - IDDM; Depression; ea chronic kidney disease; Bipolar disorder; - PSHx: 01:11 Right Nephrectomy; ea - Immunization history:: Adult Immunizations up to date. - Social history:: Smoking status: Patient reports the use of cigarette tobacco products, smokes one-half pack cigarettes per day. - Family history:: not pertinent. - Hospitalizations: : No recent hospitalization is reported. ROS: 01:10 Constitutional: Negative for fever, chills, and weight loss, MS/Extremity: + left ankle rn pain Skin: + redness to left ankle Exam: 01:10 Constitutional: This is a well developed, well nourished patient who is awake, alert, rn and in no acute distress. MS/ Extremity: Pulses present, no cyanosis, left lateral ankle with 2 cm area of erythema, in center of erythema is dry open wound, no fluctuance, no drainage, redness blanches, no streaking. Vital Signs: 01:04 BP 163 / 86; Pulse 89; Resp 18; Temp 97.7; Pulse Ox 99% ; Weight 52.16 kg; Height 4 ft. ea 9 in. (144.78 cm); 01:04 Body Mass Index 24.89 (52.16 kg, 144.78 cm) ea MDM: 01:02 Patient medically screened. rn 01:10 Differential diagnosis: cellulitis, insect bite. Data reviewed: vital signs, nurses rn notes, and as a result, I will discharge patient. Counseling: I had a detailed discussion with the patient and/or guardian regarding: the historical points, exam findings, and any diagnostic results supporting the discharge/admit diagnosis, the need for outpatient follow up, to return to the emergency department if symptoms worsen or persist or if there are any questions or concerns that arise at home. Response to treatment: There is no appreciated change of the patient's symptoms at this time, and as a result, I will discharge patient. Special discussion: I discussed with the patient/guardian in detail that at this point there is no indication for admission to the hospital. It is understood, however, that if the symptoms persist or worsen the patient needs to return immediately for re-evaluation. ED course: NO abscess to drain, afebrile, no streaking, will treat as cellulitis, with abx, and return precautions. No necrosis. . Administered Medications: 01:13 Drug: Bactrim (160 mg-800 mg (DS) 1 tablet Route: PO; mg2 01:15 Follow up: Response: No adverse reaction; Medication administered at discharge. mg2 Disposition: 02/09/20 01:14 Discharged to Home. Impression: Cellulitis of left lower limb. - Condition is Stable. - Discharge Instructions: Cellulitis, Adult. - Prescriptions for Bactrim DS 800- 160 mg Oral Tablet - take 1 tablet by ORAL route every 12 hours for 10 days; 20 tablet. - Medication Reconciliation Form, Thank You Letter, Antibiotic Education, Prescription Opioid Use form. - Follow up: Private Physician; When: As needed; Reason: Recheck today's complaints, Re-evaluation by your physician. - Problem is new. - Symptoms are unchanged. Signatures: Gil Boswell MD MD rn Antunez, Elena, RN RN ea Gardose, Michele, RN RN mg2 Corrections: (The following items were deleted from the chart) 01:27 01:14 02/09/2020 01:14 Discharged to Home. Impression: Cellulitis of left lower limb. ea Condition is Stable. Forms are Medication Reconciliation Form, Thank You Letter, Antibiotic Education, Prescription Opioid Use. Follow up: Private Physician; When: As needed; Reason: Recheck today's complaints, Re-evaluation by your physician. Problem is new. Symptoms are unchanged. rn
--- NOTE | 2020-02-09 01:15 | ER ---
Nurse's Notes [facility] Name: Barb Cortez Age: 44 yrs Sex: Female : 1975 Arrival Date: 02/09/2020 Time: 00:55 Bed 5 Private MD: Diagnosis: Cellulitis of left lower limb Presentation: 02/08 01:04 Chief complaint: Patient states: Reports she noticed a bug bite to her left outer ea ankle. Pt reports she does not know when it occurred. Coronavirus screen: Proceed with normal triage. Pt reports she had a Covid test done three days ago and her results were negative. Ebola Screen: No symptoms or risks identified at this time. Initial Sepsis Screen: Does the patient meet any 2 criteria? No. Patient's initial sepsis screen is negative. Does the patient have a suspected source of infection? No. Patient's initial sepsis screen is negative. Risk Assessment: Do you want to hurt yourself or someone else? Patient reports no desire to harm self or others. Onset of symptoms was February 09, 2020. 01:04 Method Of Arrival: Wheelchair ea 01:04 Acuity: HARI 3 ea Triage Assessment: 01:20 General: Appears in no apparent distress. Behavior is calm, cooperative, appropriate ea for age. Pain: Complains of pain in left lateral ankle. Neuro: Level of Consciousness is awake, alert, obeys commands, Oriented to person, place, time, situation. Respiratory: Airway is patent Respiratory effort is even, unlabored, Respiratory pattern is regular, symmetrical. Derm: Wound noted left lateral malleolus. Historical: - Allergies: 01:11 Aspirin; ea 01:11 Benadryl; ea 01:11 Ciprofloxacin; ea 01:11 PENICILLINS; ea 01:11 Toradol; ea 01:11 IV contrast; ea 01:11 Tramadol HCl; ea - Home Meds: 01:11 Abilify 40 mg Oral tab once daily [Active]; atorvastatin Oral [Active]; Humalog 100 ea unit/mL Sub-Q soln [Active]; Humulin 70/30 100 unit/mL (70-30) Sub-Q susp [Active]; Lantus 100 unit/mL Sub-Q soln [Active]; Lexapro 20 mg Oral tab 1 tab nightly [Active]; metformin 1,000 mg Oral tab 1 tab 2 times per day [Active]; - PMHx: 01:11 Migraines; Kidney stones; Hypertension; Hyperlipidemia; Diabetes - IDDM; Depression; ea chronic kidney disease; Bipolar disorder; - PSHx: 01:11 Right Nephrectomy; ea - Immunization history:: Adult Immunizations up to date. - Social history:: Smoking status: Patient reports the use of cigarette tobacco products, smokes one-half pack cigarettes per day. - Family history:: not pertinent. - Hospitalizations: : No recent hospitalization is reported. Screenin:07 Abuse screen: Denies threats or abuse. Nutritional screening: No deficits noted. ea Tuberculosis screening: No symptoms or risk factors identified. Fall Risk None identified. Assessment: 01:20 Reassessment: see triage assessment. ea Vital Signs: 01:04 BP 163 / 86; Pulse 89; Resp 18; Temp 97.7; Pulse Ox 99% ; Weight 52.16 kg; Height 4 ft. ea 9 in. (144.78 cm); 01:04 Body Mass Index 24.89 (52.16 kg, 144.78 cm) ea ED Course: 00:55 Patient arrived in ED. bp1 01:02 Gil Boswell MD is Attending Physician. rn 01:03 Diana Zaldivar RN is Primary Nurse. ea 01:07 Triage completed. ea 01:07 Patient has correct armband on for positive identification. Bed in low position. Call ea light in reach. Side rails up X2. 01:10 Arm band placed on right wrist. Patient placed in an exam room, on a stretcher, on ea pulse oximetry. 01:25 No provider procedures requiring assistance completed. Patient did not have IV access mg2 during this emergency room visit. Administered Medications: 01:13 Drug: Bactrim (160 mg-800 mg (DS) 1 tablet Route: PO; mg2 01:15 Follow up: Response: No adverse reaction; Medication administered at discharge. mg2 Outcome: 01:14 Discharge ordered by . rn 01:25 Discharged to home via wheelchair. mg2 01:25 Condition: stable 01:25 Discharge instructions given to patient, Instructed on discharge instructions, follow up and referral plans. medication usage, Demonstrated understanding of instructions, follow-up care, medications, Prescriptions given X 1. 01:27 Patient left the ED. ea Signatures: Gil Boswell MD MD rn Antunez, Elena, RN RN ea Gardose, Kartik, RN RN mg2 Bhavya Mckeon bp1
[2020-02-09] MEDS ORDERED: SMZ./TMP. 800/160 MG TABLET ONE (01:22)
[2020-02-09 01:33] VITALS: BP 163/86; TEMP 97.7; O2SAT 99
== END 2020-02-09 01:27 | disposition home or self-care (01) ==
LOC: ER 00:50
DX: L03.116 Cellulitis of left lower limb (principal); F31.9 Bipolar disorder, unspecified; I10 Essential (primary) hypertension; E11.9 Type 2 diabetes mellitus without complications; Z79.4 Long term (current) use of insulin; F17.210 Nicotine dependence, cigarettes, uncomplicated; Z88.0 Allergy status to penicillin; Z88.1 Allergy status to other antibiotic agents; Z88.5 Allergy status to narcotic agent; Z88.6 Allergy status to analgesic agent; Z91.041 Radiographic dye allergy status
CPT/HCPCS: 99283

== ENCOUNTER 2021-07-21 19:39 | Emergency (ER) | payer OTHER ==
--- OUTSIDE RECORDS SUMMARY | 2021-07-21 20:06 | XMS REPORT | Continuity of Care Document ---
:1975 Author Organization [facility] t Address [address] [place] [address] Care Team Providers Name Role Phone DEV Primary Care Physician Unavailable DEV Attending Clinician Unavailable Devonte SANDRA S Attending Clinician Claude WHITNEY Attending Clinician Unavailable Dev MON Attending Clinician Milton MON Attending Clinician Jung Monk MD Attending Clinician Payers Payer Name Policy Type Policy Number Effective Date Expiration Date Claude jacobs [facility] [id number] 2018 00:00:00 PLUS Problems Condition Condition Condition Status Onset Resolution Last Treating Co mments Source Name Details Category Date Date Treatment Clinician Date Essential Essential Disease Active 2020-07 Uni vers hypertensi hypertensi 0-20 it y of on on 00:00: [place] 00 Medical Branch Fall, Fall, Disease Active 2020-07 Univers sequela sequela 0-20 ity of 00:00: [place] 00 Medical Branch Decay, Decay, Disease Active 2020-07 Univers teeth teeth 0-20 ity of 00:00: [place] 00 Medical Branch Contusion Contusion Disease Active 2020-07 Uni vers of left of left 0-20 ity of lower lower 00:00: [place] extremity, extremity, 00 Me dical sequela sequela Branch Pre-operat Pre-operat Disease Active 2020-07 U nivers yari yari 0-20 ity of clearance clearance [place] CKD stage CKD stage Disease Active 2020-07 Uni vers 3 due to 3 due to 0-20 ity of type 2 type 2 00:00: [place] diabetes diabetes 00 Medica l mellitus mellitus Branch Need for Need for Disease Active 2020-07 Unive rs hepatitis hepatitis 0-20 ity of C C 00:00: [place] screening screening 00 Medi donald test test Branch Dyslipidem Dyslipidem Disease Active 2020-07 U nivers ia ia 0-20 ity of 00:00: [place] 00 Medical Branch Bipolar Bipolar Disease Active Univers disorder disorder 6-04 ity of with with 00:00: [place] severe severe 00 Medical bahman bahman Branch 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 pain 3-02 ity of 00:00: [place] 00 Medical Branch Diabetic Diabetic Disease Active Unive rs polyneurop polyneurop 3-02 it y of athy athy 00:00: [place] associated associated 00 Me dical with type with type Bran ch 2 diabetes 2 diabetes mellitus mellitus Wheelchair Wheelchair Disease Active U nivers dependence dependence 3-02 it y of 00:00: [place] 00 Medical Branch Anxiety Anxiety Disease Active Univers and and 3-02 ity of depression [place] Presence Presence Disease Active Unive rs of of 1-21 ity of intrauteri intrauteri 00:[place] 00 Medical contracept contracept Br anch yari device yari device Encounter Encounter Disease Active Uni vers for for 1-21 ity of surveillan surveillan 00:00[place] ce of ce of 00 Medical contracept contracept Br anch angel, angel, unspecifie unspecifie d d contracept contracept yari yari Diabetic Diabetic Disease Active Unive rs eye exam eye exam 1-21 ity of 00:00: [place] 00 Medical Branch Morbid Morbid Disease Active Univers obesity obesity 1-21 ity of 00:00: [place] 00 Medical Branch Morbid Morbid Disease Active Univers obesity obesity 1-21 ity of with body with body 00:[place] mass index mass index 00 Me dical (BMI) of (BMI) of Branch 40.0 or 40.0 or higher higher Below-knee Below-knee Disease Active U nivers amputation amputation 9-15 it y of of right of right 00:00: [place] lower lower 00 Medical extremity extremity Bran ch Hypotensio Hypotensio Disease Active U nivers n, n, 8-18 ity of unspecifie unspecifie 00:[place] d d 00 Medical hypotensio hypotensio Br anch n type n type Restless Restless Disease Active Unive rs leg leg 8-14 ity of 00:00: [place] 00 Medical Branch Suspected Suspected Disease Active Uni vers COVID-19 COVID-19 4-23 ity of virus virus 00:00: [place] infection infection 00 [facility] Branch Hx of BKA, Hx of BKA, Disease Active U nivers right right 4-06 ity of 00:00: [place] 00 Medical Branch Migraine Migraine Disease Active Unive rs without without 2-13 ity of status status 00:00: [place] migrainosu migrainosu 00 Me dical s, not s, not Branch intractabl intractabl e, e, unspecifie unspecifie d migraine d migraine type type Chronic Chronic Disease Active Univers bilateral bilateral 2-13 ity of low back low back 00:00: [place] pain with pain with 00 [facility] donald sciatica, sciatica, Bran ch sciatica sciatica laterality laterality unspecifie unspecifie d d Hx of Hx of Disease Active Univers bipolar bipolar 2-13 ity of disorder disorder 00:00: [place] Medical Branch Lumbar Lumbar Disease Active Univers herniated herniated 2-13 ity of disc disc 00:00: [place] 00 Medical Branch Type 2 Type 2 Disease Active Univers diabetes diabetes 2-13 ity of mellitus mellitus 00:00: [place] with with 00 Medical hyperglyce hyperglyce Br anch thanh, with thanh, with long-term long-term current current use of use of insulin insulin Allergies, Adverse Reactions, Alerts Allergy Allergy Status Severity Reaction(s) Onset Inactive Treating Comm ents Source Name Type Date Date Clinician DIPHENHY DRUG Active Hives Univers DRAMINE INGREDI 7-16 ity of HCL 00:00: [place] 00 Medical Branch Diphenhy Propensi Active Hives 2019-0 Univer s dramine ty to 7-16 ity of Hcl adverse 00:00: [place] reaction 00 Medical s Branch MUSHROOM DRUG Active Low Other-Cmnt 2018-07 Univ ers INGREDI 2 ity of 00:00: [place] 00 Medical Branch Mushroom Propensi Active Other - See 2018-07 "pass U nivers ty to comments 08-13 out" ity of adverse 00:00: [place] reaction 00 Medical s Branch TRAMADOL DRUG Active N/V Univers INGREDI 03-08 ity of 00:00: [place] 00 Medical Branch Tramadol Propensi Active Nausea drowsines Uni vers ty to and/or 03-08 s ity of adverse Vomiting 00:00: [place] reaction 00 Medical s Branch CIPROFLO DRUG Active Hives Univers XACIN INGREDI 04-11 ity of 00:00: [place] 00 Medical Branch PENICILL DRUG Active Anaphylaxis Uni vers IN INGREDI 04-11 ity of 00:00: [place] 00 Medical Branch Ciproflo Propensi Active Hives Univer s xacin ty to 04-11 ity of adverse 00:00: [place] reaction 00 Medical s Branch Penicill Propensi Active Anaphylaxis Pt U nivers in ty to 930 states, ity of adverse 00:00: "I'll [place] reaction 00 flatline" Medic al s Branch ASPIRIN DRUG Active Hives Univers INGREDI 07-14 ity of 00:00: [place] 00 Medical Branch IODINE Drug Active Anaphylaxis 0 Unive rs AND Class 07-14 ity of IODIDE 00:00: [place] CONTAINI 00 Medical NG Branch PRODUCTS Aspirin Propensi Active Hives 0 Univers ty to 07-14 ity of adverse 00:00: [place] reaction 00 Medical s Branch Iodine Propensi Active Anaphylaxis Uni vers And ty to 07-14 ity of Iodide adverse 00:00: [place] Containi reaction 00 Medica l ng s Branch Products Social History Social Habit Start Date Stop Date Quantity Comments Source Exposure to Not sure [facility] SARS-CoV-2 (event) [facility] History of tobacco Cigarette Smoker University of use [facility] Alcohol intake 2021-06-05 2021-06-05 Ex-drinker University of 00:00:00 00:00:00 (finding) [facility] Cigarettes smoked 2020-08-02 2020-08-02 Univers ity of current (pack per 00:00:00 00:00:00 ) - Reported Branch Cigarette 2020-08-02 2020-08-02 University of pack-years 00:00:00 00:00:00 [facility] Tobacco use and 2020-08-02 2020-08-02 Never used Universit y of exposure 00:00:00 00:00:00 [facility] Sex [birth year] At [birth year] Universit y of 00:00:00 00:00:00 [facility] Smoking Status Start Date Stop Date Source Current every day smoker 2020-08-02 00:00:00 Uni versity of [facility] Medications Ordered Filled Start Stop Current Ordering Indication Dosage Frequency Signature Comments Components Source Medication Medication Date Date Medication? Clinician (SIG) Name Name SUMAtriptan 2021- No 6mg 6 mg, Univ ers (IMITREX) 07-14 Subcutaneo ity of injection 6 04:15: 03:14 us, ONCE, [place] mg 00 :00 1 dose, On Medical 07/13/21 Branch at 2215, TRISTAN proMETHazin 2021- No 25mg 25 mg, IV Univers e 07-14 Piggyback, ity of (PHENERGAN) 02:00: 02:00 [place]CE, 1 [place] 25 mg in 00 :00 dose, On Medical NaCl 0.9% Sat 07/13/21 Bran ch (NS) 50 mL at 2000, piggyback 50 mL Nitrofurant Yes [id number] 100mg Take 1 Univers oin&Nit. 1-01 capsule by ity o f Macrocryst 00:00: mouth 2 [place] (MACROBID) 00 (two) Medical 100 mg times Branch capsule daily. Insulin Asp 2020-07 Yes [id number] 30U inject 30 Univers Prt-Insulin 1-24 Units ity of Aspart 00:00: under the [place] (NOVOLOG 00 skin 2 Medical MIX 70-30) (two) Branch 100 unit/mL times (70-30) daily with injection meals. E11.65 metFORMIN 2020-07 Yes [id number] 1000mg Take 1 Univers 1,000 mg 1-24 tablet by ity of tablet 00:00: mouth 2 [place] 00 (two) Medical times Branch daily with meals. SITagliptin 2020-07 Yes [id number] 100mg Take 1 Univers (JANUVIA) 1-24 tablet by ity o f 100 mg 00:00: mouth [place] tablet 00 daily. Medical Branch AMITRIPTYLI 2020-07 Yes [id number] TAKE 1 Univers NE 100 mg 1-24 06 TABLET BY ity o f tablet 00:00: MOUTH [place] 00 EVERYDAY Medical AT BEDTIME Branch Insulin Asp 2020-07 Yes [id number] 30U inject 30 Univers Prt-Insulin 1-24 Units ity of Aspart 00:00: under the [place] (NOVOLOG 00 skin 2 Medical MIX 70-30) (two) Branch 100 unit/mL times (70-30) daily with injection meals. E11.65 metFORMIN 2020-07 Yes [id number] 1000mg Take 1 Univers 1,000 mg 1-24 tablet by ity of tablet 00:00: mouth 2 00 (two) Medical times Branch daily with meals. SITagliptin 2020-07 Yes [id number] 100mg Take 1 Univers (JANUVIA) 1-24 tablet by ity o f 100 mg 00:00: mouth [place] tablet 00 daily. Medical Branch AMITRIPTYLI 2020-07 Yes [id number] TAKE 1 Univers NE 100 mg 1-24 06 TABLET BY ity o f tablet 00:00: MOUTH [place] 00 EVERYDAY Medical AT BEDTIME Branch OMEPRAZOLE 2020-07 Yes [id number] TAKE 1 Univers 40 mg 1-12 CAPSULE BY ity of capsule 00:00: MOUTH [place] 00 EVERY DAY Medical Branch OMEPRAZOLE 2020-07 Yes [id number] TAKE 1 Univers 40 mg 1-12 CAPSULE BY ity of capsule 00:00: MOUTH [place] 00 EVERY DAY Medical Branch Miscellaneo 2020-07 Yes [facility] [place] [facility] 07-16 rollatorR5 ity of Supply [facility] 00:00: 5/W19.XXXS [place] 00 /M79.604/R Medical 12.12/I50. Branch 32/I51.7/E 11.3511: Use daily for ambulation /fall precaution Miscellaneo 2020-07 Yes [facility] [place] [facility] 07-16 rollatorR5 ity of Supply Misc 00:00: 5/W19.XXXS [place] 00 /M79.604/R Medical 06.02/I50. Branch 32/I51.7/E 11.3511: Use daily for ambulation /fall precaution Walker 2020-07 Yes R55/W19.XX Un ann marie (ULTRA-LIGH 1-03 XS/M79.604 it y of T ROLLATOR) 00:00: /R06.02/I5 [place] Misc 00 0.32/I51.7 Medical /E11.3511: Branch Use daily for ambulation /fall precaution (brand pending insurance approval) [place] 2020-07 Yes R55/W19.XX Un ann marie (ULTRA-LIGH 1-03 XS/M79.604 it y of T ROLLATOR) 00:00: /R06.02/I5 [place] Misc 00 0.32/I51.7 Medical /E11.3511: Branch Use daily for ambulation /fall precaution (brand pending insurance approval) Miscellaneo 2020-07 Yes [id number] I10 - Univers RT [employer] Medical 0-20 Dispense ity o f Supply Kit 00:00: blood [place] 00 pressure Medical cuff (any Branch brand), take BP at home BID lisinopriL 2020-07 Yes [id number] 2.5mg Take 0.5 Univers 5 mg tablet 0-20 tablets by it y of 00:00: mouth [place] 00 daily. Medical Hold if BP Branch < 110/60 atorvastati 2020-07 Yes [id number] 40mg Take 1 Univers n 40 mg 0-20 tablet by ity of tablet 00:00: mouth at [place] 00 bedtime. Medical Branch pregabalin 2020-07 Yes [id number] 75mg Take 1 Univers (LYRICA) 75 0-20 capsule by it y of mg capsule 00:00: [place] 2 [place] 00 (two) Medical times Branch daily. mupirocin 2 2020-07 Yes [id number] Apply to Univers % ointment 0-20 area(s) 3 ity of 00:00: (three) [place] times Medical daily. Branch Miscellaneo 2020-07 Yes [id number] I10 - Univers Medical 0-20 Dispense ity o f Supply Kit 00:00: blood [place] 00 pressure Medical cuff (any Branch brand), take BP at home BID lisinopriL 2020-07 Yes [id number] 2.5mg Take 0.5 Univers 5 mg tablet 0-20 tablets by it y of 00:00: mouth [place] 00 daily. Medical Hold if BP Branch < 110/60 atorvastati 2020-07 Yes [id number] 40mg Take 1 Univers n 40 mg 0-20 tablet by ity of tablet 00:00: mouth at [place] 00 bedtime. Medical Branch pregabalin 2020-07 Yes [id number] 75mg Take 1 Univers (LYRICA) 75 0-20 capsule by it y of mg capsule 00:00: mouth 2 [place] 00 (two) Medical times Branch daily. mupirocin 2 2020-07 Yes [id number] Apply to Univers % ointment 0-20 area(s) 3 ity of 00:00: (three) 00 times Medical daily. Branch ondansetron Yes [id number] 4mg Take 1 Univers (ZOFRAN 8-04 tablet by ity of ODT) 4 mg 00:00: mouth [place] disintegrat 00 every 8 Medic al ing tablet (eight) Branch hours as needed for Nausea and Vomiting (N/V). ondansetron Yes [id number] 4mg Take 1 Univers (ZOFRAN 8-04 tablet by ity of ODT) 4 mg 00:00: mouth [place] disintegrat 00 every 8 Medic al ing tablet (eight) Branch hours as needed for Nausea and Vomiting (N/V). Butalbital- Yes [id number] 1{capsu Take 1 Univers Acetaminoph 6-04 le} capsule by it y of en-Caff 00:00: mouth [place] (FIORICET) 00 every 8 Medica l 50-300-40 (eight) Branch mg per hours as capsule needed for Pain (scale 4-6). Butalbital- Yes [id number] 1{capsu Take 1 Univers Acetaminoph 6-04 le} capsule by it y of en-Caff 00:00: mouth [place] (FIORICET) 00 every 8 Medica l 50-300-40 (eight) Branch mg per hours as capsule needed for Pain (scale 4-6). ALBUTEROL Yes [id number] INHALE 2 Univers 90 2-02 PUFFS BY ity of mcg/actuati 00:00: MOUTH [place] on inhaler 00 EVERY 6 Medica l HOURS Branch NEEDED FOR SHORTNESS OF BREATH ALBUTEROL Yes [id number] INHALE 2 Univers 90 2-02 PUFFS BY ity of mcg/actuati 00:00: MOUTH [place] on inhaler 00 EVERY 6 Medica l HOURS Branch NEEDED FOR SHORTNESS OF BREATH HYDROcodone 2019-0 Yes 1{tbl} Take 1 Un ann marie -acetaminop 5-11 tablet by ity of hen 7.5-325 00:00: mouth 2 [place] mg per 00 (two) Medical tablet times Branch daily. HYDROcodone 2019-0 Yes 1{tbl} Take 1 Un ann marie -acetaminop 5-11 tablet by ity of hen 7.5-325 00:00: mouth 2 [place] as mg per 00 (two) Medical tablet times Branch daily. ondansetron Yes TAKE 1 Univ ers 4 mg tablet 1-27 TABLET BY ity of 00:00: MOUTH [place] 00 EVERY 4 Medical HOURS Branch NEEDED FOR NAUSEA ondansetron 2019-0 Yes TAKE 1 Univ ers 4 mg tablet 1-27 TABLET BY ity of 00:00: MOUTH [place] 00 EVERY 4 Medical HOURS Branch NEEDED FOR NAUSEA Immunizations Ordered Filled Immunization Date Status Comments [facility] Immunization Name Name SARS-COV-2 COVID-19 2021-03-08 Completed Unive rsity of PFIZER VACCINE 00:00:00 [facility] SARS-COV-2 COVID-19 2021-03-08 Completed Unive rsity of PFIZER VACCINE 00:00:00 [facility] SARS-COV-2 COVID-19 2021-02-15 Completed Unive rsity of PFIZER VACCINE 00:00:00 [facility] SARS-COV-2 COVID-19 2021-02-15 Completed Unive rsity of PFIZER VACCINE 00:00:00 [facility] Vital Signs Vital Name Observation Time Observation Value Comments Source Systolic blood 2021-07-14 05:00:00 183 mm[Hg] Univer sity of pressure [facility] Diastolic blood 2021-07-14 05:00:00 87 mm[Hg] Unive rsity of pressure [facility] Heart rate 2021-07-14 05:00:00 99 /min [facility] Respiratory rate 2021-07-14 05:00:00 23 /min [facility] Oxygen saturation in 2021-07-14 05:00:00 93 /min [facility] Arterial blood by [facility] Pulse oximetry [place] Body temperature 2021-07-14 00:39:00 37.11 Leigh [facility] Body weight 2021-07-14 00:39:00 93.441 kg [facility] BMI 2021-07-14 00:39:00 44.58 kg/m2 [facility] Procedures Procedure Date / Time Performed Performing Clinician Sour e URINALYSIS 2021-07-14 03:02:00 Britni Cunningham [facility] POTASSIUM SERUM 2021-07-14 02:23:00 Erma Whitney [facility] o f [facility] XR CHEST 1 VW 2021-07-14 01:30:39 Britni Cunningham [facility] BLOOD CULTURE SCREEN 2021-07-14 00:58:00 Britni Cunningham [facility] TROPONIN I 2021-07-14 00:58:00 Britni Cunningham [facility] COMP. METABOLIC PANEL 2021-07-14 00:58:00 Britni Cunningham [facility] ([id number]) [facility] CBC WITH DIFF 2021-07-14 00:58:00 Britni Cunningham [facility] RAPID INFLUENZA A/B 2021-07-14 00:58:00 Britni Cunningham [facility] COVID-19 (ID NOW RAPID 2021-07-14 00:58:00 Britni Cunningham [facility] TESTING) [facility] CONSENT/REFUSAL FOR 2021-07-14 00:35:33 Doctor Unassigned, No Un [facility] DIAGNOSIS AND Name [facility] TREATMENT Encounters Start End Encounter Admission Attending Care Care Encounter Source Date/Time Date/Time Type Type Clinicians Facility Department ID 2021-07-17 2021-07-17 Outpatient R DEV [facility] [id number] Univers 15:20:00 15:20:[address] [facility] 2021-07-13 2021-07-13 [facility] [id number] Univers 18:37:00 23:49:00 Erma MORALES [id number] i ty of [place] 4.2.7.2.686 [id number] [address] 2021-07-13 2021-07-13 Emergency [facility] ERT [id number] Univers 18:37:00 23:49:00 ERMA itdominga [facility] 2021-07-09 2021-07-09 Telephone [facility] [id number] Univers 00:00:00 00:00:00 Kwadwo MORALES [id number] i ty of [place] 4.2.7.2.686 [id number] [place] [address] 2020-02-02 2020-02-02 Telephone [facility] [id number] 00:00:00 00:00:00 Burak Morales [id number] [place] 4.2.7.2.686 Professio [id number] [address] 2020-02-02 2020-02-02 Telephone [facility] [id number] 00:00:00 00:00:00 Wondiful A [place] [id number] [place] 4.2.7.2.686 Professio [id number] [address] 2020-02-02 2020-02-02 Telephone [facility] [id number] 00:00:00 00:00:00 Wondiful [place] [id number] [place] [id number] Professio [id number] [address] Results Test Description Test Time Test Comments Results Result Comments Source POTASSIUM SERUM 2021-07-14 02:47:34 Test Item Value Reference Range Interpretation Comme nts K (test code = 2089068226) 5.3 mmol/L 3.5-5.0 H Lab Interpretation (test code = 55168-6) Abnormal [facility] WITH [id number] 02:08:41 Test Item Value Reference Range Interpretation Comments WBC (test code = See_Comment H [Automated 6690-2) message] The sy stem which generated this result transmitted reference range : 4.30 - 11.10 10*3/?L. The reference range was not used to interpret this result as normal/abnormal . RBC (test code = See_Comment [Automated 789-8) message] The sy stem which generated this result transmitted reference range : 3.93 - 5.25 10*6/?L. The reference range was not used to interpret this result as normal/abnormal . HGB (test code = 10.6 g/dL 11.6-15.0 L 718-7) HCT (test code = 34.9 % 35.7-45.2 L 4544-3) MCV (test code = 84.1 fL 80.6-95.5 787-2) MCH (test code = 25.5 pg 25.9-32.8 L 785-6) MCHC (test code = 30.4 g/dL 31.6-35.1 L 786-4) RDW-SD (test code = 45.4 fL 39.0-49.9 93525-3) RDW-CV (test code = 15.0 % 12.0-15.5 788-0) PLT (test code = See_Comment [Automated 777-3) message] The sy stem which generated this result transmitted reference range : 166 - 358 10*3/ ?L. The reference r mary was not used to interpret this result as normal/abnormal . MPV (test code = 9.5 fL 9.5-12.9 32939-6) NRBC/100 WBC (test See_Comment [Automat ed code = 8239031975) message] The system which generated this result transmitted reference range : 0.0 - 10.0 /100 WBCs. The refer ence range was not u sed to interpret th is result as normal/abnormal . NRBC x10^3 (test code <0.01 See_Comment [Auto mated = 4222541989) message] The s ystem which generated this result transmitted reference range : 10*3/?L. The reference range was not used to interpret this result as normal/abnormal . SEG % (test code = 35 % 33-76 76901-4) BAND % (test code = 7 % 0-1 H 01551-5) META % (test code = 1 % See_Comment H [Automa perla 77342-4) message] The sy stem which generated this result transmitted reference range : <=0. The refere nce range was not u sed to interpret th is result as normal/abnormal . LYMPH % (test code = 35 % 14-54 11015-7) MONO % (test code = 13 % 0-4 H 95416-9) EOS % (test code = 8 % 0-3 H 87463-6) BASO % (test code = 1 % 0-1 50318-4) ANC (test code = 4.68 10*3/uL 1.88-7.09 753-4) TOXIC CHANGES (test Present A code = 803-7) Lab Interpretation Abnormal (test code = 53436-8) [id number] 02:[facility]12 Test Item Value Reference Interpretation Comments Range TROPONIN I (test 0.008 ng/mL See_Comment [Automated code = 8880597826) message] The system which generated this result transmitted reference range : <=0.034. The reference range was not used to interpret this result as normal/abnormal . LIEN (test code = Reference (Normal) LIEN) Range (defined by the 99th percentile reference limit): <= 0.034 ng/mL Note: Cardiac troponin begins to rise 3-4 hours after the onset of ischemia. Repeat in 4-6 hours if the sample was drawn within 3-4 hours of the onset of the symptom and found normal. Diagnosis of myocardial injury is made with acute changes in cTn concentrations with at least one serial sample above the 99th percentile upper reference limit (URL), taken together with the patient's clinical presentation. Biotin has been reported to cause a negative bias, interpret results relative to patient's use of biotin. Lab Interpretation Normal (test code = 43846-9) [facility]. METABOLIC PANEL ([id number])2021-07-14 01:53:33 Test Item Value Reference Range Interpretation Comments NA (test code = 137 mmol/L 135-145 3876685003) K (test code = 5.7 mmol/L 3.5-5.0 H 9560617553) CL (test code = 105 mmol/L 98-108 8290731656) CO2 TOTAL (test code = 26 mmol/L 23-31 6887208183) AGAP (test code = 2-16 3380680843) BUN (test code = 19 mg/dL 7-23 5909669062) GLUCOSE (test code = 199 mg/dL 70-110 H 0914483962) CREATININE (test code = 0.84 mg/dL 0.50-1.04 7254457468) TOTAL BILI (test code = 0.5 mg/dL 0.1-1.4 1991678063) CALCIUM (test code = 8.4 mg/dL 8.6-10.6 L 5614747766) T PROTEIN (test code = 7.1 g/dL 6.3-8.2 0631045544) ALBUMIN (test code = 3.8 g/dL 3.5-5.0 0124230988) ALK PHOS (test code = 69 U/L 34-122 4108467944) ALTv (test code = 17 U/L 5-35 1742-6) AST(SGOT) (test code = 28 U/L 13-40 0755926953) eGFR (test code = mL/min/1.73m2 3715343144) LIEN (test code = LIEN) Association of Glomerular Filtration Rate (GFR) and Staging of Kidney Disease* + --+ --+ ------+| GFR (mL/min/1.73 m2) ?| With Kidney Damage ?| ?Without Kidney Damage+ --------+ --------+ +| ?>90 ?| ?Stage one ?| ? Normal ?+ ---+ ---+ -------+| ?60-89 ?| ?Stage two ?| ? Decreased GFR ? + --+ --+ ------+| ?30-59 ?| ?Stage three ?| ? Stage three ? + --+ --+ ------+| ?15-29 ?| ?Stage four ? | ? Stage four ?+ ---+ ---+ -------+| ?<15 (or dialysis) ? ?| ?Stage five ? | ? Stage five ?+ ---+ ---+ -------+ *Each stage assumes the associated GFR level has been in effect for at least three months. ?Stages 1 to 5, with or without kidney disease, indicate chronic kidney disease. Notes: Determination of stages one and two (with eGFR >59mL/min/1.73 m2) requires estimation of kidney damage for at least three months as defined by structural or functional abnormalities of the kidney, manifested by either:Pathological abnormalities or Markers of kidney damage (including abnormalities in the composition of the blood or urine or abnormalities in imaging tests). Lab Interpretation Abnormal (test code = [id number]) [facility]
[2021-07-21 21:13] LABS: SARS-COV-2 RT PCR NEGATIVE (NEGATIVE)
--- NOTE | 2021-07-21 23:09 | EDPHYS ---
Physician Documentation [facility] Name: Barb Cortez Age: 45 yrs Sex: Female : 1975 Arrival Date: 07/21/2021 Time: 19:42 Bed 10 Private MD: RENÉ Physician Crescencio Barnes HPI: 07/21 23:05 This 45 yrs old Female presents to ER via Wheelchair with complaints of covid symptoms. pm1 23:05 The patient or guardian reports cough, with no sputum, headache, body aches. pm1 23:05 Onset: The symptoms/episode began/occurred today. Severity of symptoms: in the pm1 emergency department the symptoms are unchanged. Modifying factors: The symptoms are alleviated by nothing, the symptoms are aggravated by nothing. Associated signs and symptoms: Pertinent positives: rhinorrhea, Pertinent negatives: chest pain, diarrhea, fever, sore throat, vomiting, shortness of breath. The patient has not experienced similar symptoms in the past. The patient has not recently seen a physician. Patient is concerned about exposure to covid because her and daughter tested positive 3 days ago. 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 LMP N/A - Post-menopause tw5 Historical: - Allergies: 20:09 Aspirin; tw5 20:09 Benadryl; tw5 20:09 Ciprofloxacin; tw5 20:09 IV contrast; tw5 20:09 PENICILLINS; tw5 20:09 Toradol; tw5 20:09 Tramadol HCl; tw5 - Home Meds: 20:09 atorvastatin Oral [Active]; Humalog 100 unit/mL Sub-Q soln [Active]; Humulin 70/30 100 tw5 unit/mL (70-30) Sub-Q susp [Active]; metformin 1,000 mg Oral tab 1 tab 2 times per day [Active]; - PMHx: 20:09 Bipolar disorder; chronic kidney disease; Diabetes - IDDM; Depression; Hyperlipidemia; tw5 Hypertension; Kidney stones; Migraines; - PSHx: 20:09 right kidney removal; right; Amputated below knee; tw5 - Immunization history:: Adult Immunizations up to date, Client reports receiving the 2nd dose of the Covid vaccine, Pfizer x2. - Social history:: Smoking status: Patient reports the use of cigarette tobacco products, smokes two packs cigarettes per day. ROS: 23:05 Cardiovascular: Negative for chest pain, palpitations, and edema. pm1 23:05 Abdomen/GI: Negative for abdominal pain, nausea, vomiting, diarrhea, and constipation, Back: Negative for injury and pain, MS/Extremity: Negative for injury and deformity, Skin: Negative for injury, rash, and discoloration. 23:05 Constitutional: Positive for body aches, Negative for fever, poor PO intake. 23:05 ENT: Positive for rhinorrhea, Negative for sore throat. 23:05 Respiratory: Positive for cough, Negative for shortness of breath. 23:05 Neuro: Positive for headache, Negative for numbness, tingling, weakness. 23:05 All other systems are negative. Exam: 23:05 Constitutional: This is a well developed, well nourished patient who is awake, alert, pm1 and in no acute distress. Head/Face: Normocephalic, atraumatic. 23:05 Back: No spinal tenderness. No costovertebral tenderness. Full range of motion. Skin: Warm, dry with normal turgor. Normal color with no rashes, no lesions, and no evidence of cellulitis. MS/ Extremity: Pulses equal, no cyanosis. Neurovascular intact. Full, normal range of motion. 23:05 Cardiovascular: Exam negative for acute changes, Rate: normal, Rhythm: regular, Pulses: no pulse deficits are appreciated, Heart sounds: normal, normal S1and S2. 23:05 Respiratory: Exam negative for acute changes, respiratory distress, shortness of breath, Breath sounds: are clear throughout. 23:05 Abdomen/GI: Exam negative for acute changes, Inspection: abdomen appears normal, Palpation: abdomen is soft and non-tender, in all quadrants. 23:05 Neuro: Exam negative for acute changes, Orientation: is normal, Mentation: is normal, Motor: is normal, moves all fours. Vital Signs: 20:05 BP 155 / 79; Pulse 99; Resp 16 S; Temp 97.5(TE); Pulse Ox 97% on R/A; Weight 127.91 kg tw5 (R); Height 4 ft. 9 in. (144.78 cm) (R); Pain 10/10; 20:05 Body Mass Index 61.02 (127.91 kg, 144.78 cm) tw5 MDM: 22:55 Patient medically screened. pm1 23:05 Data reviewed: vital signs. Data interpreted: Pulse oximetry: on room air is 97 %. pm1 Interpretation: normal. Counseling: I had a detailed discussion with the patient and/or guardian regarding: the historical points, exam findings, and any diagnostic results supporting the discharge/admit diagnosis, lab results, the need for outpatient follow up, to return to the emergency department if symptoms worsen or persist or if there are any questions or concerns that arise at home. 23:10 ED course: Patient with history of chronic kidney disease, diabetes, HTN. Patient's pm1 and daughter are positive for covid-19. With risk factors will prescribe azithromycin, cough medication for symptomatic relief, and zofran for her nausea. 07/21 20:15 Order name: COVID-19/FLU A+B (Document "Date of Onset" if Symptomatic); Complete Time: tw5 22:06 07/21 20:15 Order name: Strep; Complete Time: 22:06 tw5 07/21 20:52 Order name: Throat Culture EDMS Administered Medications: 23:27 CANCELLED (Physician Discretion): Ondansetron 4 mg PO once pm1 23:28 CANCELLED (Physician Discretion): guaiFENesin AC (codeine-guaifenesin) Liquid (10 pm1 mg-100 mg/5 mL) 10 ml PO once 23:29 Drug: Phenergan (promethazine) -Codeine Liquid (6.25mg - 10mg / 5mL) 5 ml Route: PO; tw5 23:32 Follow up: Response: No adverse reaction; Medication administered at discharge. tw5 Disposition: 07/22 06:38 Co-signature as Attending Physician, Crescencio Barnes MD I agree with the assessment and gera plan of care. Disposition Summary: 07/21/21 23:09 Discharge Ordered Location: Home pm1 Problem: new pm1 Symptoms: have improved pm1 Condition: Stable pm1 Diagnosis - Acute upper respiratory infection, unspecified pm1 Followup: pm1 - With: Emergency Department - When: As needed - Reason: Worsening of condition Followup: pm1 - With: Private Physician - When: 2 - 3 days - Reason: Recheck today's complaints, Continuance of care, Re-evaluation by your physician Discharge Instructions: - Discharge Summary Sheet pm1 - Upper Respiratory Infection, Adult pm1 - COVID-19 pm1 - COVID-19: What Your Test Results Mean - [facility] pm1 - COVID-19 Frequently Asked Questions pm1 - COVID-19: Quarantine vs. Isolation - [facility] pm1 Forms: - Medication Reconciliation Form pm1 - Thank You Letter pm1 - Antibiotic Education pm1 - Prescription Opioid Use pm1 Prescriptions: - Guaifenesin AC 10-100 mg/5 mL Oral Liquid - take 10 milliliters by ORAL route every 4 hours As needed; 240 milliliter; pm1 Refills: 0, Product Selection Permitted - ondansetron 4 mg Oral tablet,disintegrating - place 1 tablet by TRANSLINGUAL route every 8 hours As needed; 20 tablet; pm1 Refills: 0, Product Selection Permitted - Zithromax Z-W[place] 250 mg Oral Tablet - take 1 tablet by ORAL route as directed for 5 days Day 1 - take two (2) tablets pm1 one time. Day 2, 3, 4 , 5 take one (1) tablet once daily.; 6 tablet; Refills: 0, Product Selection Permitted Signatures: Dispatcher [employer] EDRI Crescencio Barnes MD MD cha Marinas, Patrick, TRANSVERSE ABDOMINAL MUSCLE NURSE TRANSVERSE ABDOMINAL MUSCLE NURSE pm1 Martine Borja tw5 Corrections: (The following items were deleted from the chart) 07/21 23:27 23:07 Ondansetron 4 mg PO once ordered. pm1 pm1 23:28 23:07 guaiFENesin AC (codeine-guaifenesin) Liquid (10 mg-100 mg/5 mL) 10 ml PO once pm1 ordered. pm1 07/22 02:10 07/21 23:05 This 45 yrs old Female presents to ER via Wheelchair with complaints of pm1 Breathing Difficulty. pm1
--- NOTE | 2021-07-21 23:09 | ER ---
Nurse's Notes [facility] Name: Barb Cortez Age: 45 yrs Sex: Female : 1975 Arrival Date: 07/21/2021 Time: 19:42 Bed 10 Private MD: Diagnosis: Acute upper respiratory infection, unspecified Presentation: 07/21 20:05 Chief complaint: Patient states: covid like symptoms starting today. headache, body tw5 aches, congestion, cough, runny nose. tested positive a few days ago. no fever at home. Denies any SOB at this time. Coronavirus screen: Client denies travel out of the [place] in the last 14 days. chills, congestion, cough unrelated to allergies, headache, muscle pain, runny nose, shortness of breath, Client presents with at least one sign or symptom that may indicate coronavirus-19. Standard/surgical mask placed on the client. The client denies any previous COVID testing. Ebola Screen: No symptoms or risks identified at this time. Initial Sepsis Screen: Does the patient meet any 2 criteria? No. Patient's initial sepsis screen is negative. Does the patient have a suspected source of infection? No. Patient's initial sepsis screen is negative. Risk Assessment: Do you want to hurt yourself or someone else? Patient reports no desire to harm self or others. Onset of symptoms was July 21, 2021. 20:05 Method Of Arrival: Wheelchair tw5 20:05 Acuity: HARI 4 tw5 Triage Assessment: 20:09 General: Appears in no apparent distress. comfortable, Behavior is calm, cooperative. tw5 Pain: Complains of pain in headache Pain currently is 10 out of 10 on a pain scale. EENT:. Neuro: Level of Consciousness is awake, alert, obeys commands, Oriented to person, place, time, situation. Cardiovascular: Capillary refill. Respiratory: Reports cough that is Airway is patent Trachea midline Respiratory effort is even, unlabored, Respiratory pattern is regular, symmetrical, Onset: The symptoms/episode began/occurred today, the patient has mild shortness of breath. GI: No signs and/or symptoms were reported involving the gastrointestinal system. : No signs and/or symptoms were reported regarding the genitourinary system. Derm: No signs and/or symptoms reported regarding the dermatologic system. 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 LMP N/A - Post-menopause tw5 Historical: - Allergies: 20:09 Aspirin; tw 20:09 Benadryl; tw 20:09 Ciprofloxacin; tw5 20:09 IV contrast; tw5 20:09 PENICILLINS; tw5 20:09 Toradol; tw 20:09 Tramadol HCl; tw5 - Home Meds: 20:09 atorvastatin Oral [Active]; Humalog 100 unit/mL Sub-Q soln [Active]; Humulin 70/30 100 tw5 unit/mL (70-30) Sub-Q susp [Active]; metformin 1,000 mg Oral tab 1 tab 2 times per day [Active]; - PMHx: 20:09 Bipolar disorder; chronic kidney disease; Diabetes - IDDM; Depression; Hyperlipidemia; tw5 Hypertension; Kidney stones; Migraines; - PSHx: 20:09 right kidney removal; right; Amputated below knee; tw5 - Immunization history:: Adult Immunizations up to date, Client reports receiving the 2nd dose of the Covid vaccine, Pfizer x2. - Social history:: Smoking status: Patient reports the use of cigarette tobacco products, smokes two packs cigarettes per day. Screenin:33 Abuse screen: Denies threats or abuse. Denies injuries from another. Nutritional tw5 screening: No deficits noted. Tuberculosis screening: No symptoms or risk factors identified. Fall Risk Fall in past 12 months (25 points). Assessment: 23:33 General: Appears in no apparent distress. comfortable, Behavior is calm, cooperative, tw5 appropriate for age. Cardiovascular: Rhythm is. Respiratory: Airway is patent Trachea midline Respiratory effort is even, unlabored, Breath sounds are clear bilaterally. Vital Signs: 20:05 BP 155 / 79; Pulse 99; Resp 16 S; Temp 97.5(TE); Pulse Ox 97% on R/A; Weight 127.91 kg tw5 (R); Height 4 ft. 9 in. (144.78 cm) (R); Pain 10/10; 20:05 Body Mass Index 61.02 (127.91 kg, 144.78 cm) tw5 ED Course: 19:42 Patient arrived in ED. bp1 20:09 Triage completed. tw5 20:09 Arm band placed on. tw5 20:24 Strep Sent. tw5 20:24 COVID-19/FLU A+B (Document "Date of Onset" if Symptomatic) Sent. tw5 22:55 [facility] pm1 22:55 Crescencio Barnes MD is Attending Physician. pm1 23:15 Martine Borja is Primary Nurse. tw5 23:33 Patient has correct armband on for positive identification. Placed in gown. Bed in low tw5 position. Call light in reach. Side rails up X 1. campus monitor on. Pulse ox on. NIBP on. Door closed. Noise minimized. Moved to private room. Warm blanket given. Verbal reassurance given. 23:33 No provider procedures requiring assistance completed. Patient did not have IV access tw5 during this emergency room visit. Administered Medications: 23:27 CANCELLED (Physician Discretion): Ondansetron 4 mg PO once pm1 23:28 CANCELLED (Physician Discretion): guaiFENesin AC (codeine-guaifenesin) Liquid (10 pm1 mg-100 mg/5 mL) 10 ml PO once 23:29 Drug: Phenergan (promethazine) -Codeine Liquid (6.25mg - 10mg / 5mL) 5 ml Route: PO; tw5 23:32 Follow up: Response: No adverse reaction; Medication administered at discharge. tw5 Outcome: 23:09 Discharge ordered by . pm1 23:33 Discharged to home via wheelchair, with family. tw5 23:33 Condition: good 23:33 Discharge instructions given to patient, Instructed on discharge instructions, follow up and referral plans. Demonstrated understanding of instructions, follow-up care, medications, Prescriptions given X 3. 23:34 Patient left the ED. tw5 Signatures: Georges Mendoza NP [employer] SUPERVISOR pm1 Bhavya Mckeon bp1 Martine Borja tw5
[2021-07-21] MEDS ORDERED: PROMETH/COD 6.25/10MG SYRUP 5ML ONE (23:30)
[2021-07-22 00:17] VITALS: BP 155/79; TEMP 97.5; O2SAT 97
== END 2021-07-21 23:34 | disposition home or self-care (01) ==
LOC: ER 19:39
DX: J06.9 Acute upper respiratory infection, unspecified (principal); Z20.822 Contact with and (suspected) exposure to COVID-19; E11.22 Type 2 diabetes mellitus with diabetic chronic kidney disease; I12.9 Hypertensive chronic kidney disease with stage 1 through stage 4 chronic kidney disease, or unspecified chronic kidney disease; N18.9 Chronic kidney disease, unspecified; F17.210 Nicotine dependence, cigarettes, uncomplicated; Z79.4 Long term (current) use of insulin; F31.9 Bipolar disorder, unspecified; Z88.0 Allergy status to penicillin; Z88.1 Allergy status to other antibiotic agents; Z88.5 Allergy status to narcotic agent; Z88.6 Allergy status to analgesic agent; Z91.041 Radiographic dye allergy status
CPT/HCPCS: 87070; 87081; 0240U; 99284

== ENCOUNTER 2021-08-27 21:12 | Emergency (ER) | payer OTHER ==
--- OUTSIDE RECORDS SUMMARY | 2021-08-27 21:15 | XMS REPORT | Continuity of Care Document ---
:1975 Author Organization [facility] t Address [address] [place] [address] Care Team Providers Name Role Phone Dev MON Primary Care Physician Dev MON Attending Clinician Milton MON Attending Clinician Aleshia MON, Jung Attending Clinician Payers Payer Name Policy Type Policy Number Effective Date Expiration Date S ource Problems Condition Condition Condition Status Onset Resolution Last Treating Co mments Source Name Details Category Date Date Treatment Clinician Date Dehydratio Dehydratio Disease Active U mavis n n 1-27 ity of 00:00: [place] 00 Medical Branch Nicotine Nicotine Disease Active Unive rs dependence dependence 1-27 it y of with with 00:00: [place] current current 00 Medical use use Branch Contusion Contusion Disease Active 2020-07 Uni vers of left of left 0-20 ity of lower lower 00:00: [place] extremity, extremity, 00 Me dical sequela sequela Branch Pre-operat Pre-operat Disease Active 2020-07 U dorothyers yari yari 0-20 ity of clearance clearance [place] CKD stage CKD stage Disease Active 2020-07 Uni vers 3 due to 3 due to 0-20 ity of type 2 type 2 00:00: [place] diabetes diabetes 00 Medica l mellitus mellitus Branch Need for Need for Disease Active 2020-07 Unive rs hepatitis hepatitis 0-20 ity of C C 00:00: [place] screening screening 00 Medi donald test test Branch Dyslipidem Dyslipidem Disease Active 2020-07 U nivers ia ia 0-20 ity of 00:00: [place] 00 Medical Branch Essential Essential Disease Active 2020-07 Uni vers hypertensi hypertensi 0-20 it y of on on 00:00: [place] 00 Medical Branch Fall, Fall, Disease Active 2020-07 Univers sequela sequela 0-20 ity of 00:00: [place] Medical [facility] Decay, Decay, Disease Active 2020-07 Univers teeth teeth 0-20 ity of 00:00: [place] 00 Medical Branch Bipolar Bipolar Disease Active Univers disorder disorder 6-04 ity of with with 00:00: [place] severe severe 00 Medical bahman bahman Branch 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 pain 3-02 ity of 00:00: [place] 00 Medical Branch Diabetic Diabetic Disease Active Unive rs polyneurop polyneurop 3-02 it y of athy athy 00:00: [place] associated associated 00 Me dical with type with type Bran ch 2 diabetes 2 diabetes mellitus mellitus Wheelchair Wheelchair Disease Active U nivers dependence dependence 3-02 it y of 00:00: [place] 00 Medical Branch Anxiety Anxiety Disease Active [...] Univers obesity obesity 1-21 ity of 00:00: [place] 00 Medical Branch Morbid Morbid Disease Active Univers obesity obesity 1-21 ity of with body with [facility] mass index mass index 00 Me dical (BMI) of (BMI) of Branch 40.0 or 40.0 or higher higher Below-knee Below-knee Disease Active U nivers amputation amputation 9-15 it y of of right of right 00:00: [place] lower lower 00 Medical extremity extremity Bran ch Hypotensio Hypotensio Disease Active U nivers n, n, 8-18 ity of unspecifie unspecifie 00:[place] 00 Medical hypotensio hypotensio Br anch n type n type Restless Restless Disease Active Unive rs leg leg 8-14 ity of 00:00: [place] 00 Medical Branch Suspected Suspected Disease Active Uni vers COVID-19 COVID-19 4-23 ity of virus virus 00:00: [place] infection infection 00 [facility] Branch Hx of BKA, Hx of BKA, Disease Active U nivers right right 4-06 ity of 00:00: [place] 00 Medical Branch Migraine Migraine Disease Active Unive rs without without 2-13 ity of status status 00:00: [place] migrainosu migrainosu 00 Me dical s, not s, not Branch intractabl intractabl e, e, unspecifie unspecifie d migraine d migraine type type Chronic Chronic Disease Active Univers bilateral bilateral 2-13 ity of low back low back 00:00: [place] pain with pain with 00 [facility] donald bilateral bilateral Bran ch sciatica sciatica Hx of Hx of Disease Active Univers bipolar bipolar 2-13 ity of disorder disorder 00:00: [place] 00 Medical Branch Lumbar Lumbar Disease Active Univers herniated herniated 2-13 ity of disc disc 00:00: [place] Medical Branch Type 2 Type 2 Disease Active Univers diabetes diabetes 2-13 ity of mellitus mellitus 00:00: [place] with with 00 Medical hyperglyce hyperglyce Br anch thanh, with thanh, with long-term long-term current current use of use of insulin insulin Allergies, Adverse Reactions, Alerts Allergy Allergy Status Severity Reaction(s) Onset Inactive Treating Comm ents Source Name Type Date Date Clinician Diphenhy Propensi Active Hives Univer s dramine ty to 7-16 ity of Hcl adverse 00:00: [place] reaction 00 Medical s Branch Mushroom Propensi Active Other - See 2018-07 "pass U nivers ty to comments 08-13 out" ity of adverse 00:00: [place] reaction 00 Medical s Branch Tramadol Propensi Active Nausea drowsines Uni vers ty to and/or 03-08 s ity of adverse Vomiting 00:00: [place] reaction 00 Medical s Branch Ciproflo Propensi Active Hives Univer s xacin ty to 04-11 ity of adverse 00:00: [place] reaction Medical s Branch Penicill Propensi Active Anaphylaxis Pt U nivers in ty to 04-11 states, ity of adverse 00:00: "I'll [place] reaction 00 flatline" Medic al s Branch Aspirin Propensi Active Hives Univers ty to 07-14 ity of adverse 00:00: [place] reaction 00 Medical s Branch Iodine Propensi Active Anaphylaxis Uni vers And ty to 07-14 ity of Iodide adverse 00:00: [place] Containi reaction 00 Medica l ng s Branch Products Social History Social Habit Start Date Stop Date Quantity Comments Source Exposure to Not sure University of SARS-CoV-2 (event) [facility] [place] [facility] History of tobacco Cigarette Smoker University of use [facility] [place] [facility] Alcohol intake 2021-08-14 2021-08-14 Ex-drinker University of 00:00:00 00:00:00 (finding) [facility] [place] [facility] Cigarettes smoked 2020-08-02 2020-08-02 Univers ity of current (pack per 00:00:00 00:00:00 ) - Reported Branch Cigarette 2020-08-02 2020-08-02 University of pack-years 00:00:00 00:00:00 [facility] [place] [facility] Tobacco use and 2020-08-02 2020-08-02 Never used Universit y of exposure 00:00:00 00:00:00 [facility] [place] [facility] Sex [birth year] At [birth year] Universit y of 00:00:00 00:00:00 [facility] [place] [facility] Smoking Status Start Date Stop Date Source Current every day smoker 2020-08-02 00:00:00 Uni versity of [place] [facility] Medications Ordered Filled Start Stop Current Ordering Indication Dosage Frequency Signature Comments Components Source Medication Medication Date Date Medication? Clinician (SIG) Name Name pregabalin Yes [id number] 75mg Take 1 Univers (LYRICA) 75 - capsule by it y of mg capsule 00:00[place] (two) Medical times Branch daily. Butalbital- Yes [id number] 1{capsu Take 1 Univers Acetaminoph 08-08 le} capsule by it y of en-Caff 00:00: mouth [place] (FIORICET) 00 every 8 Medica l 50-300-40 (eight) Branch mg per hours as capsule needed (Migraine) . clindamycin 2021- No [id number] 300mg Take 1 Univers 300 mg 08-08 02-04 20496 capsule by ity o f capsule 00:00: 05:59 mouth 4 [place] 00 :00 (four) Medical times Branch daily for 7 days. Nitrofurant Yes [id number] 100mg Take 1 Univers oin&Nit. 1-01 capsule by ity o f Macrocryst 00:00: mouth 2 [place] (MACROBID) 00 (two) Medical 100 mg times Branch capsule daily. Insulin Asp 2020-07 Yes [id number] 30U inject 30 Univers Prt-Insulin 1-24 Units ity of Aspart 00:00: under the [place] (NOVOLOG 00 skin 2 Medical MIX 70-30) (two) Branch 100 unit/mL times (70-30) daily with injection meals. E11.65 metFORMIN 2020-07 Yes [id number] 1000mg Take 1 Univers 1,000 mg 1-24 tablet by ity of tablet 00:00: mouth 2 [place] 00 (two) Medical times Branch daily with meals. SITagliptin 2020-07 Yes [id number] 100mg Take 1 Univers (JANUVIA) 1-24 tablet by ity o f 100 mg 00:00: mouth [place] tablet 00 daily. Medical Branch AMITRIPTYLI 2020-07 Yes [id number] TAKE 1 Univers NE 100 mg 1-24 06 TABLET BY ity o f tablet 00:00: MOUTH [place] 00 EVERYDAY Medical AT BEDTIME Branch OMEPRAZOLE 2020-07 Yes [id number] TAKE 1 Univers 40 mg 1-12 CAPSULE BY ity of capsule 00:00: MOUTH [place] 00 EVERY DAY Medical Branch Miscellaneo 2020-07 Yes Standard [facility] Medical 1-04 rollatorR5 ity of Supply Misc 00:00: 5/W19.XXXS [place] 00 /M79.604/R Medical 06.02/I50. Branch 32/I51.7/E 11.3511: Use daily for ambulation /fall precaution Walker 2020-07 Yes R55/W19.XX Un ann marie (ULTRA-LIGH 1-03 XS/M79.604 it y of T ROLLATOR) 00:00: /R06.02/I5 [place] [facility] 00 0.32/I51.7 Medical /E11.3511: Branch Use daily for ambulation /fall precaution (brand pending insurance approval) Miscellaneo 2020-07 Yes [id number] I10 - Univers Medical 0-20 Dispense ity o f Supply Kit 00:00: blood [place] 00 pressure Medical cuff (any Branch brand), take BP at home BID lisinopriL 2020-07 Yes [id number] 2.5mg Take 0.5 Univers 5 mg tablet 0-20 tablets by it y of 00:00: mouth [place] 00 daily. Medical Hold if BP Branch < 110/60 atorvastati 2020-07 Yes [id number] 40mg Take 1 Univers n 40 mg 0-20 tablet by ity of tablet 00:00: mouth at [place] 00 bedtime. Medical Branch mupirocin 2 2020-07 Yes [id number] Apply to Univers % ointment 0-20 area(s) 3 ity of 00:00: (three) [place] 00 times Medical daily. Branch pregabalin 2020-07- No [id number] 75mg Take 1 Univers (LYRICA) 75 0-20 01-27 capsule by i ty of mg capsule 00:00: 00:00 mouth 2 [place] 00 :00 (two) Medical times Branch daily. ondansetron Yes [id number] 4mg Take 1 Univers (ZOFRAN 8-04 tablet by ity of ODT) 4 mg 00:00: mouth [place] disintegrat 00 every 8 Medic al ing tablet (eight) Branch hours as needed for Nausea and Vomiting (N/V). Butalbital- 2021- No [id number] 1{capsu Take 1 Univers Acetaminoph 6-04 08-08 le} capsule by i ty of en-Caff 00:00: 00:00 mouth [place] (FIORICET) 00 :00 every 8 Medica l 50-300-40 (eight) Branch mg per hours as capsule needed for Pain (scale 4-6). ALBUTEROL Yes [id number] INHALE 2 Univers 90 2-02 PUFFS BY ity of mcg/actuati 00:00: MOUTH [place] on inhaler 00 EVERY 6 Medica l HOURS Branch NEEDED FOR SHORTNESS OF BREATH HYDROcodone Yes 1{tbl} Take 1 Un ann marie -acetaminop 5-11 tablet by ity of hen 7.5-325 00:00: mouth 2 [place] mg per 00 (two) Medical tablet times Branch daily. ondansetron Yes TAKE 1 Univ ers 4 mg tablet 1-27 TABLET BY ity of 00:00: MOUTH [place] 00 EVERY 4 Medical HOURS Branch NEEDED FOR NAUSEA Immunizations Ordered Filled Immunization Date Status Comments [facility] e Immunization Name Name SARS-COV-2 COVID-19 2021-03-08 Completed Unive rsity of PFIZER VACCINE 00:00:00 [facility] [place] [facility] SARS-COV-2 COVID-19 2021-02-15 Completed Unive rsity of PFIZER VACCINE 00:00:00 [facility] [place] [facility] Vital Signs Vital Name Observation Time Observation Value Comments Source Systolic blood 2021-08-08 19:00:00 91 mm[Hg] Univer sity of pressure [facility] [place] [facility] Diastolic blood 2021-08-08 19:00:00 56 mm[Hg] Unive rsity of pressure [facility] [place] [facility] Heart rate 2021-08-08 19:00:00 94 /min [facility] Body temperature 2021-08-08 19:00:00 36.33 [facility] Respiratory rate 2021-08-08 19:00:00 18 /min [facility] Body height 2021-08-08 19:00:00 144.8 cm [facility] Body weight 2021-08-08 19:00:00 97.07 kg Universi [facility] [place] BMI 2021-08-08 19:00:00 46.31 kg/m2 [facility] Oxygen saturation in 2021-08-08 19:00:00 99 /min University Arterial blood by [facility] Pulse oximetry Branch Procedures This patient has no known procedures. Encounters Start End Encounter Admission Attending Care Care Encounter Source Date/Time Date/Time Type Type Clinicians Facility Department ID 2021-08-08 2021-08-08 [id number] [facility] 13:00:00 13:58:03 Visit Mele MORALES [id number] i ty [facility] [id number] Stacia hood PROFESSIO [id number] [address] 2020-02-02 2020-02-02 [facility] [id number] 00:00:00 00:00:00 Burak Morales [id number] [place] [id number] Professio [id number] [address] 2020-02-02 2020-02-02 [facility] [id number] 00:00:00 00:00:00 [place] [id number] [place] [id number] Professio [id number] [address] 2020-02-02 2020-02-02 [facility] [id number] 00:00:00 00:00:00 [place] [id number] [place] [id number] Professio [id number] [address] Results This patient has no known results.
--- NOTE | 2021-08-27 22:34 | EDPHYS ---
Physician Documentation [facility] Name: Barb Cortez Age: 45 yrs Sex: Female : 1975 Arrival Date: 08/27/2021 Time: 21:26 Bed 15 Private MD: ED Physician Crescencio Barnes HPI: 08/27 22:26 This 45 yrs old Female presents to ER via Wheelchair with complaints of Fall gera Injury, pain all over body. 22:26 Details of fall: The patient fell from an upright position, while walking. Onset: The gera symptoms/episode began/occurred today, yesterday. Associated injuries: The patient sustained upper back injury, injury to the low back, decreased range of motion, pain. Severity of symptoms: At their worst the symptoms were mild, in the emergency department the symptoms are unchanged. The patient has experienced similar episodes in the past, several times. 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 N/A - control method tw5 Historical: - Allergies: 21:35 Aspirin; tw5 21:35 Benadryl; tw5 21:35 Ciprofloxacin; tw5 21:35 IV contrast; tw5 21:35 PENICILLINS; tw5 21:35 Toradol; tw5 21:35 Tramadol HCl; tw5 - Home Meds: 21:35 atorvastatin 10 mg oral tab [Active]; Humalog 100 unit/mL Sub-Q soln [Active]; Humulin tw5 70/30 100 unit/mL (70-30) Sub-Q susp [Active]; metformin 1,000 mg Oral tab 1 tab 2 times per day [Active]; - PMHx: 21:35 Bipolar disorder; chronic kidney disease; Depression; Diabetes - IDDM; Hyperlipidemia; tw5 Hypertension; Kidney stones; Migraines; - PSHx: 21:35 Amputated below knee; right kidney removal; right; tw5 - Immunization history: Last tetanus immunization: - up to date. - Social history:: Smoking status: Patient reports the use of cigarette tobacco products, smokes one-half pack cigarettes per day. ROS: 22:28 Constitutional: Negative for fever, chills, and weight loss, Eyes: Negative for injury, gera pain, redness, and discharge, ENT: Negative for injury, pain, and discharge, Neck: Negative for injury, pain, and swelling, Cardiovascular: Negative for chest pain, palpitations, and edema, Respiratory: Negative for shortness of breath, cough, wheezing, and pleuritic chest pain, Abdomen/GI: Negative for abdominal pain, nausea, vomiting, diarrhea, and constipation, : Negative for injury, bleeding, discharge, and swelling, Skin: Negative for injury, rash, and discoloration, Neuro: Negative for headache, weakness, numbness, tingling, and seizure, Psych: Negative for depression, anxiety, suicide ideation, homicidal ideation, and hallucinations, Allergy/Immunology: Negative for hives, rash, and allergies, Endocrine: Negative for neck swelling, polydipsia, polyuria, polyphagia, and marked weight changes, Hematologic/Lymphatic: Negative for swollen nodes, abnormal bleeding, and unusual bruising. 22:28 Back: Positive for pain with movement. 22:28 MS/extremity: Positive for contusion, pain, of the right arm, left arm, right leg and left leg. Exam: 22:28 Constitutional: This is a well developed, well nourished patient who is awake, alert, gera and in no acute distress. Head/Face: Normocephalic, atraumatic. Eyes: Pupils equal round and reactive to light, extra-ocular motions intact. Lids and lashes normal. Conjunctiva and sclera are non-icteric and not injected. Cornea within normal limits. Periorbital areas with no swelling, redness, or edema. ENT: Nares patent. No nasal discharge, no septal abnormalities noted. Tympanic membranes are normal and external auditory canals are clear. Oropharynx with no redness, swelling, or masses, exudates, or evidence of obstruction, uvula midline. Mucous membranes moist. Neck: Trachea midline, no thyromegaly or masses palpated, and no cervical lymphadenopathy. Supple, full range of motion without nuchal rigidity, or vertebral point tenderness. No Meningismus. Chest/axilla: Normal chest wall appearance and motion. Nontender with no deformity. No lesions are appreciated. Cardiovascular: Regular rate and rhythm with a normal S1 and S2. No gallops, murmurs, or rubs. Normal PMI, no JVD. No pulse deficits. Respiratory: Lungs have equal breath sounds bilaterally, clear to auscultation and percussion. No rales, rhonchi or wheezes noted. No increased work of breathing, no retractions or nasal flaring. Abdomen/GI: Soft, non-tender, with normal bowel sounds. No distension or tympany. No guarding or rebound. No evidence of tenderness throughout. Female : Normal external genitalia. Skin: Warm, dry with normal turgor. Normal color with no rashes, no lesions, and no evidence of cellulitis. MS/ Extremity: Pulses equal, no cyanosis. Neurovascular intact. Full, normal range of motion. Neuro: Awake and alert, GCS 15, oriented to person, place, time, and situation. Cranial nerves II-XII grossly intact. Motor strength 5/5 in all extremities. Sensory grossly intact. Cerebellar exam normal. Normal gait. Psych: Awake, alert, with orientation to person, place and time. Behavior, mood, and affect are within normal limits. 22:28 Back: pain, that is mild, ROM is painful, with flexion, with extension, normal spinal alignment noted, CVA tenderness, is absent, vertebral tenderness, is not appreciated, muscle spasm, is appreciated in the left low back, left mid back, right mid back and right low back. Vital Signs: 21:32 BP 138 / 57; Pulse 98; Resp 18; Temp 97.9(O); Pulse Ox 98% on R/A; Weight 96.16 kg; tw5 Height 4 ft. 9 in. (144.78 cm); Pain 10/10; 22:03 Pulse 88; Resp 18; Pulse Ox 98% on R/A; Pain 2/10; dejuan 22:43 BP 136 / 68; Pulse 86; Resp 18; Temp 98.6; Pulse Ox 99% on R/A; Pain 2/10; dejuan 21:32 Body Mass Index 45.88 (96.16 kg, 144.78 cm) tw5 Karena Coma Score: 21:32 Eye Response: spontaneous(4). Verbal Response: oriented(5). Motor Response: obeys tw5 commands(6). Total: 15. Trauma Score (Adult): 21:32 Eye Response: spontaneous(1); Verbal Response: oriented(1); Motor Response: obeys tw5 commands(2); Systolic BP: > 89 mm Hg(4); Respiratory Rate: 10 to 29 per min(4); Karena Score: 15; Trauma Score: 12 MDM: 22:18 Patient medically screened. gera 22:30 Differential diagnosis: Fracture Obesity Osteoarthritis Osteoporosis spinal injury, gera sprain. Differential diagnosis: abrasion, contusion, fracture, multiple trauma, sprain, strain. Data reviewed: vital signs, nurses notes. Data interpreted: threat monitoring analyst: not applicable for this patient encounter. rate is 88 beats/min, rhythm is regular, Pulse oximetry: on room air is 98 %. Counseling: I had a detailed discussion with the patient and/or guardian regarding: the historical points, exam findings, and any diagnostic results supporting the discharge/admit diagnosis, lab results, radiology results, the need for outpatient follow up, for definitive care, a family practitioner. Administered Medications: 22:30 Drug: [place] (HYDROcodone-acetaminophen) 10 mg-325 mg 1 tabs Route: PO; dejuan 22:43 Follow up: Response: No adverse reaction dejuan 22:30 Drug: Valium (diazepam) 5 mg Route: PO; dejuan 22:43 Follow up: Response: No adverse reaction dejuan Disposition Summary: 08/27/21 22:33 Discharge Ordered Location: Home gera Problem: new gera Symptoms: have improved gera Condition: Stable gera Diagnosis - Fall on same level, unspecified gera - Obesity, unspecified gera - Contusion of back wall of thorax gera Followup: gera - With: Private Physician - When: 2 - 3 days - Reason: Recheck today's complaints, Continuance of care, Re-evaluation by your physician Discharge Instructions: - Discharge Summary Sheet gera - Fall Prevention in the Home, Adult gera - Obesity, Adult gera - Fall Prevention in the Home, Adult, [id number] gera - Obesity, Adult, [id number] gera Forms: - Medication Reconciliation Form gera - Thank You Letter gera - Antibiotic Education gera - Prescription Opioid Use gera Prescriptions: - Tylenol-Codeine #3 300 mg-30 mg Oral - take 2 tablet by ORAL route every 6 hours; 20 tablet; Refills: 0, Product gear Selection Permitted Signatures: Crescencio Barnes MD MD cha Wood, Tiffany tw5 Felecia Soto RN RN dejuan
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
[2021-08-27] MEDS ORDERED: HYDROCODONE/APAP 10/325 TAB ONE (22:41)
[2021-08-27] MEDS ORDERED: DIAZEPAM 5 MG TABLET ONE (22:41)
[2021-08-28 00:48] VITALS: BP 136/68; TEMP 98.6; O2SAT 99
== END 2021-08-27 22:45 | disposition home or self-care (01) ==
LOC: ER 21:12
DX: S20.229A Contusion of unspecified back wall of thorax, initial encounter (principal); W18.30XA Fall on same level, unspecified, initial encounter; Y92.009 Unspecified place in unspecified non-institutional (private) residence as the place of occurrence of the external cause; I12.9 Hypertensive chronic kidney disease with stage 1 through stage 4 chronic kidney disease, or unspecified chronic kidney disease; E11.22 Type 2 diabetes mellitus with diabetic chronic kidney disease; N18.9 Chronic kidney disease, unspecified; E78.5 Hyperlipidemia, unspecified
CPT/HCPCS: 99284

== ENCOUNTER 2021-10-28 20:50 | Inpatient (IN) | payer OTHER ==
--- OUTSIDE RECORDS SUMMARY | 2021-10-28 20:54 | XMS REPORT | Continuity of Care Document ---
:[address] [facility] t Address [address] [place] [address] Care Team Providers Name Role Phone DEV Primary Care Physician Unavailable Jolie HAYES Attending Clinician Unavailable HURST Attending Clinician Unavailable Dev MON Attending Clinician Milton MON Attending Clinician Aleshia MON A Attending Clinician Payers Payer Name Policy Type Policy Number Effective Date Expiration Date Claude jacobs [facility] [id number] 2018 00:00:00 PLUS Problems Condition Condition Condition Status Onset Resolution Last Treating Co mments Source Name Details Category Date Date Treatment Clinician Date Dehydratio Dehydratio Disease Active U dorothyers n n 1-27 ity of 00:00: [place] [...] yari 0-20 ity of clearance clearance 00:00: [facility] [place] [facility] CKD stage CKD stage Disease Active 2020-07 Uni vers 3 due to 3 due to 0-20 ity of type 2 type 2 00:00: [place] diabetes diabetes 00 Medica l mellitus mellitus Branch Need for Need for Disease Active 2020-07 Unive rs hepatitis hepatitis 0-20 ity of C C 00:00: [place] screening screening 00 Medi donald test test Branch Dyslipidem Dyslipidem Disease Active 2020-07 U nivers ia ia 0-20 ity of 00:00: [place] 00 Medical Branch Essential Essential Disease Active 2020-07 Uni vers hypertensi hypertensi 0-20 it y of on on 00:00: [place] 00 Medical Branch Fall, Fall, Disease Active 2020-07 Univers sequela sequela 0-20 ity of 00:00: [place] 00 Medical Branch Decay, Decay, Disease Active 2020-07 Univers teeth teeth 0-20 ity of 00:00: [place] 00 Medical Branch Bipolar Bipolar Disease Active Univers disorder disorder 6-04 ity of with with 00:00: [place] severe severe 00 Medical bahman bahman Branch 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 pain 3-02 ity of 00:00: [place] 00 Medical Branch Diabetic Diabetic Disease Active Unive rs polyneurop polyneurop 3-02 it y of athy athy 00:00: [place] associated associated 00 Me dical with type with type Bran ch 2 diabetes 2 diabetes mellitus mellitus Wheelchair Wheelchair Disease Active U nivers dependence dependence 3-02 it y of 00:00: [place] Medical Branch Anxiety Anxiety Disease Active Univers [...] exam eye exam 1-21 ity of 00:00: [place] Medical [facility] Morbid Morbid Disease Active Univers obesity obesity 1-21 ity of 00:00: [place] Medical [facility] Morbid Morbid Disease Active Univers obesity obesity 1-21 ity of with body with body 00:00: [facility] mass index mass index 00 Me dical (BMI) of (BMI) of Branch 40.0 or 40.0 or higher higher Below-knee Below-knee Disease Active U nivers amputation amputation 9-15 it y of of right of right 00:00: [place] lower lower 00 Medical extremity extremity Bran ch Hypotensio Hypotensio Disease Active U nivers n, n, 8-18 ity of unspecifie unspecifie [place] 00 Medical hypotensio hypotensio Br anch n type n type Restless Restless Disease Active Unive rs leg leg 8-14 ity of 00:00: [place] Medical Branch Suspected Suspected Disease Active Uni vers COVID-19 COVID-19 4-23 ity of virus virus 00:00: [place] infection infection [address] [facility] donald Branch Hx of BKA, Hx of BKA, Disease Active U nivers right right 4-06 ity of 00:00: [place] 00 Medical Branch Migraine Migraine Disease Active Unive rs without without 2-13 ity of status status 00:00: [place] migrainosu migrainosu 00 Me dical s, not s, not Branch intractabl intractabl e, e, unspecifie unspecifie d migraine d migraine type type Chronic Chronic Disease Active Univers bilateral bilateral 2-13 ity of low back low back 00:00: [place] pain with pain with 00 Medi donald bilateral bilateral Bran ch sciatica sciatica Hx of Hx of Disease Active Univers bipolar bipolar 2-13 ity of disorder disorder 00:00: [place] 00 Medical Branch Lumbar Lumbar Disease Active Univers herniated herniated 2-13 ity of disc disc 00:00: [place] 00 Medical Branch Type 2 Type 2 Disease Active Univers diabetes diabetes 2-13 ity of mellitus mellitus 00:00: [place] with with 00 Medical hyperglyce hyperglyce Br anch thanh, with thanh, with long-term long-term current current use of use of insulin insulin Allergies, Adverse Reactions, Alerts Allergy Allergy Status Severity Reaction(s) Onset Inactive Treating Comm ents Source Name Type Date Date Clinician DIPHENHY DRUG Active Hives Univers DRAMINE INGREDI 7-16 ity of HCL 00:00: [place] 00 Medical Branch Diphenhy Propensi Active Hives Univer s dramine [...] Branch TRAMADOL DRUG Active N/V Univers INGREDI 8 ity of 00:00: [place] 00 Medical Branch Tramadol Propensi Active Nausea drowsines Uni vers ty to and/or 03-08 s ity of adverse Vomiting 00:00: [place] reaction 00 Medical s Branch CIPROFLO DRUG Active Hives Univers XACIN INGREDI 9-30 ity of 00:00: [place] 00 Medical Branch PENICILL DRUG Active Anaphylaxis Uni vers IN INGREDI 9-30 ity of 00:00: [place] 00 Medical Branch Ciproflo Propensi Active Hives Univer s xacin ty to -30 ity of adverse 00:00: [place] reaction Medical s Branch Penicill Propensi Active Anaphylaxis Pt U nivers in ty to 9-30 states, ity of adverse 00:00: "I'll [place] reaction 00 flatline" Medic al s Branch ASPIRIN DRUG Active Hives Univers INGREDI 07-14 ity of 00:00: [place] 00 Medical Branch IODINE Drug Active Anaphylaxis Unive rs AND Class 1- ity of IODIDE 00:00: [place] CONTAINI 00 Medical NG Branch PRODUCTS Aspirin Propensi Active Hives Univers ty to 07-14 ity of adverse 00:00: [place] reaction 00 Medical s Branch Iodine Propensi Active Anaphylaxis Uni vers And ty to 07-14 ity of Iodide adverse 00:00: [place] Containi reaction 00 Medica l ng s Branch Products Social History Social Habit Start Date Stop Date Quantity Comments Source History of tobacco Cigarette Smoker University of use [facility] Alcohol intake 2021-10-11 2021-10-11 Ex-drinker University 00:00:00 00:00:00 (finding) [facility] Cigarettes smoked 2020-08-02 2020-08-02 Univers ity of current (pack per 00:00:00 00:00:00 ) - Reported Branch Cigarette 2020-08-02 2020-08-02 University of pack-years 00:00:00 00:00:00 [facility] Tobacco use and 2020-08-02 2020-08-02 Never used Universit y of exposure 00:00:00 00:00:00 [facility] Sex [birth year] At [birth year] Universit y of 00:00:00 00:00:00 [facility] Smoking Status Start Date Stop Date Source Current every day smoker 2020-08-02 00:00:00 Uni versity of [facility] Medications Ordered Filled Start Stop Current Ordering Indication Dosage Frequency Signature Comments Components Source Medication Medication Date Date Medication? Clinician (SIG) Name Name pregabalin Yes [id number] 75mg Take 1 Univers (LYRICA) 75 1-27 capsule by it y of mg capsule 00:00[place] (two) Medical times Branch daily. Butalbital- Yes [id number] 1{capsu Take 1 Univers Acetaminoph 1-27 le} capsule by it y of en-Caff 00:00: mouth [place] (FIORICET) 00 every 8 Medica l 50-300-40 (eight) Branch mg per hours as capsule needed (Migraine) . Nitrofurant Yes [id number] 100mg Take 1 Univers oin&Nit. 1-01 capsule by ity o f Macrocryst 00:00: [place] (MACROBID) 00 (two) Medical 100 mg times Branch capsule daily. Insulin Asp 2020-07 Yes [id number] 30U inject 30 Univers Prt-Insulin 1-24 Units ity of Aspart 00:00: under the [place] (NOVOLOG 00 skin 2 Medical MIX 70-30) (two) Branch 100 unit/mL times (70-30) daily with injection meals. E11.65 metFORMIN 2020-07 Yes [id number] 1000mg Take 1 Univers 1,000 mg 1-24 tablet by ity of tablet 00:00: mouth 2 00 (two) Medical times Branch daily with meals. SITagliptin 2020-07 Yes [id number] 100mg Take 1 Univers (JANUVIA) 1-24 tablet by ity o f 100 mg 00:00: mouth [place] tablet 00 daily. Medical Branch AMITRIPTYLI 2020-07 Yes [id number] TAKE 1 Univers NE 100 mg 1-24 06 TABLET BY ity o f tablet 00:00: MOUTH [place] 00 EVERYDAY Medical AT BEDTIME Branch OMEPRAZOLE 2020-07 Yes [id number] TAKE 1 Univers 40 mg 1-12 CAPSULE BY ity of capsule 00:00: MOUTH [place] 00 EVERY DAY Medical Branch Miscellaneo 2020-07 Yes Standard Univers Medical 1-04 rollatorR5 ity of Supply Misc 00:00: 5/W19.XXXS [place] 00 /M79.604/R Medical 06.02/I50. Branch 32/I51.7/E 11.3511: Use daily for ambulation /fall precaution Walker 2020-07 Yes R55/W19.XX Un ann marie (ULTRA-LIGH 1-03 XS/M79.604 it y of T ROLLATOR) 00:00: /R06.02/I5 [place] Misc 00 0.32/I51.7 Medical /E11.3511: Branch Use daily for ambulation /fall precaution (brand pending insurance approval) Miscellaneo 2020-07 Yes [id number] I10 - Univers Medical 0-20 Dispense ity o f Supply Kit 00:00: blood [place] 00 pressure Medical cuff (any Branch brand), take BP at home BID lisinopriL 2020-07 Yes [id number] 2.5mg Take 0.5 Univers 5 mg tablet 0-20 tablets by it y of 00:00: mouth [place] 00 daily. Medical Hold if BP Branch < 110/60 atorvastati 2020-07 Yes [id number] 40mg Take 1 Univers n 40 mg 0-20 tablet by ity of tablet 00:00: mouth at [place] 00 bedtime. Medical Branch mupirocin 2 2020-07 Yes [id number] Apply to Univers % ointment 0-20 area(s) 3 ity of 00:00: (three) [place] 00 times Medical daily. Branch ondansetron Yes [id number] 4mg Take 1 Univers (ZOFRAN 8-04 tablet by ity of ODT) 4 mg 00:00: mouth [place] disintegrat 00 every 8 Medic al ing tablet (eight) Branch hours as needed for Nausea and Vomiting (N/V). ALBUTEROL Yes [id number] INHALE 2 Univers 90 2-02 PUFFS BY [...] Immunizations Ordered Filled Immunization Date Status Comments [facility] e Immunization Name Name Pneumococcal 2021-10-04 Completed University o f Polysaccharide, 00:00:00 [place] Med ical PPSV23 (PNEUMOVAX) Branch Influenza Virus 2021-10-04 Completed Universit y of Vaccine Quad .5 mL 00:00:00 [facility] [facility] 6+ MO Branch SARS-COV-2 COVID-19 2021-03-08 Completed Unive rsity of PFIZER VACCINE 00:00:00 [facility] SARS-COV-2 COVID-19 2021-02-15 Completed Unive rsity of PFIZER VACCINE 00:00:00 [facility] Procedures This patient has no known procedures. Encounters Start End Encounter Admission Attending Care Care Encounter Source Date/Time Date/Time Type Type Clinicians Facility Department ID 2021-10-16 2021-10-16 Outpatient R ABIGAIL [facility] [id number] Univers 08:15:00 08:15:00 [place] itdominga o f [facility] 2021-10-15 2021-10-15 Outpatient R NATALI [facility] [id number] Univers 11:00:00 11:00:00 CINDY burnette [facility] 2021-10-15 2021-10-[address] [facility] [id number] Univers 00:00:00 00:00:00 Mele MORALES [id number] i ty [facility] [id number] Stacia hood PROFESSIO [id number] Mi dical [address] 2020-02-02 2020-02-[address] [facility] [id number] 00:00:00 00:00:00 Burak Morales [id number] [place] [id number] Professio [phone] [address] 2020-02-02 2020-02-[address] [facility] [id number] 00:00:00 00:00:00 [place] [id number] [place] [id number] Professio [phone] [address] 2020-02-02 2020-02-02 [facility] [id number] 00:00:00 00:00:00 Wondiful A [place] [id number] [place] [id number] Professio [phone] [address] Results This patient has no known results.
[2021-10-28 21:37] LABS: Urine Blood 1+ (Negative); Urine Glucose 1+ (Negative); Urine Protein 3+ (Negative)
[2021-10-28] MEDS ORDERED: HYDROMORPHONE HCL 1 MG/ML INJ ONE (21:46)
[2021-10-28] MEDS ORDERED: ONDANSETRON 4 MG/2 ML VIAL ONE ×2 (21:46→22:58)
[2021-10-28] MEDS ORDERED: FAMOTIDINE 20 MG/2 ML VIAL IV ONE (21:47)
[2021-10-28] MEDS ORDERED: NA CHLORIDE 0.9% 1,000 ML ONE (21:47)
[2021-10-28 22:01] LABS: Urine Bacteria <20 /HPF (<20); Urine Mucus 1+ /HPF (NONE SEEN)
[2021-10-28 22:40] LABS: Absolute Lymphocytes (CBC) 3.8 K/uL (0.7-4.9)
[2021-10-28 22:41] LABS: Hematocrit 33.2 % (36.0-45.0); Lymphocytes % 32.9 % (15.3-44.8); MPV 7.2 fL (7.6-11.3); RBC Red Blood Cell Count 4.18 M/uL (3.86-4.86)
[2021-10-28 22:50] LABS: ALT/SGPT 21 U/L (12-78); AST/SGOT 8 U/L (15-37); Albumin 2.6 g/dL (3.4-5.0); Alkaline Phosphatase 103 U/L (45-117); BUN Blood Urea Nitrogen 31 mg/dL (7-18); Bicarbonate 29 mmol/L (21-32); Bilirubin Total < 0.1 mg/dL (0.2-1.0); Glucose Level 261 mg/dL (74-106); Lipase 175 U/L (73-393); Potassium 5.2 mmol/L (3.5-5.1); Protein, Total 6.3 g/dL (6.4-8.2); Sodium Level 137 mmol/L (136-145)
--- NOTE | 2021-10-29 00:41 | EDPHYS ---
Physician Documentation [facility] Name: Barb Cortez Age: 45 yrs Sex: Female : 1975 Arrival Date: 10/28/2021 Time: 20:55 Bed 5 Private MD: ED Physician Leon Peterson HPI: 10/28 21:30 This 45 yrs old Female presents to ER via Wheelchair with complaints of Kidney Pain. cp 21:30 The patient complains of pain in the left flank. The pain radiates to the abdomen. cp Onset: The symptoms/episode began/occurred this morning. 21:30 Modifying factors: the symptoms are aggravated by movement. Associated signs and cp symptoms: Pertinent positives: nausea, vomiting, Pertinent negatives: diarrhea, fever, pain radiating to the lower extremities. Severity of pain: in the emergency department the pain is unchanged despite home interventions. 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 LMP N/A - control method lg3 Historical: - Allergies: 21:07 Aspirin; lg3 21:07 Benadryl; lg3 21:07 Ciprofloxacin; lg3 21:07 IV contrast; lg3 21:07 PENICILLINS; lg3 21:07 Toradol; lg3 21:07 Tramadol HCl; lg3 - Home Meds: 21:07 atorvastatin 10 mg Oral tab [Active]; Humalog 100 unit/mL Sub-Q soln [Active]; lg3 metformin 1,000 mg Oral tab 1 tab 2 times per day [Active]; Humulin 70/30 100 unit/mL (70-30) Sub-Q susp [Active]; lisinopril 5 mg Oral tab 1 tab once daily [Active]; amitriptyline 50 mg Oral tab 1 tab once daily [Active]; Seroquel 400 mg Oral tab 1 tab once daily [Active]; Depakote 500 mg Oral TbEC 1 tab 3 times per day [Active]; - PMHx: 21:07 Bipolar disorder; chronic kidney disease; Depression; Diabetes - IDDM; Hyperlipidemia; lg3 Hypertension; Kidney stones; Migraines; - PSHx: 21:07 Amputated below knee; right kidney removal; right; lg3 - Immunization history:: Adult Immunizations up to date, Client reports receiving the 2nd dose of the Covid vaccine. - Social history:: Smoking status: Patient reports the use of cigarette tobacco products, smokes one pack cigarettes per day. Patient/guardian denies using alcohol. ROS: 21:35 Constitutional: Negative for body aches, chills, fever, poor PO intake. cp 21:35 Eyes: Negative for injury, pain, redness, and discharge. cp 21:35 ENT: Negative for drainage from ear(s), ear pain, sore throat, difficulty swallowing, difficulty handling secretions. 21:35 Cardiovascular: Negative for chest pain, edema, palpitations. 21:35 Respiratory: Negative for cough, shortness of breath, wheezing. 21:35 Abdomen/GI: Positive for abdominal pain, nausea and vomiting, Negative for diarrhea, constipation. 21:35 Back: Positive for flank pain, on the left. 21:35 Neuro: Negative for altered mental status, dizziness, headache, syncope, weakness. 21:35 All other systems are negative. Exam: 21:40 Head/Face: Normocephalic, atraumatic. cp 21:40 Constitutional: The patient appears in no acute distress, alert, awake, non-diaphoretic, non-toxic, well developed, well nourished, obese, in obvious pain, uncomfortable. 21:40 Eyes: Periorbital structures: appear normal, Conjunctiva: normal, no exudate, no injection, Sclera: no appreciated abnormality, Lids and lashes: appear normal, bilaterally. 21:40 ENT: External ear(s): are unremarkable, Nose: is normal, Mouth: Lips: moist, Oral mucosa: moist, Posterior pharynx: Airway: no evidence of obstruction, patent. 21:40 Chest/axilla: Inspection: normal. 21:40 Cardiovascular: Rate: normal, Rhythm: regular. 21:40 Respiratory: the patient does not display signs of respiratory distress, Respirations: normal, no use of accessory muscles, no retractions, labored breathing, is not present, Breath sounds: are clear throughout, no decreased breath sounds, no stridor, no wheezing. 21:40 Abdomen/GI: Inspection: obese Bowel sounds: active, all quadrants, Palpation: soft, in all quadrants, severe abdominal tenderness, in the posterior aspect of left lateral abdomen, anterior aspect of left lateral abdomen, left upper quadrant and left lower quadrant, rebound tenderness, is not appreciated, voluntary guarding, is elicited in the posterior aspect of left lateral abdomen, anterior aspect of left lateral abdomen, left upper quadrant and left lower quadrant. 21:40 Skin: no rash present. 21:40 Neuro: Orientation: to person, place \\T\\ time. Mentation: is normal, Motor: moves all fours, strength is normal. Vital Signs: 21:02 BP 168 / 87; Pulse 94; Resp 17 S; Temp 97.1(TE); Pulse Ox 99% on R/A; Weight 99.79 kg lg3 (R); Height 4 ft. 9 in. (144.78 cm) (R); Pain 10/10; 22:00 BP 158 / 84; Pulse 94; Resp 18; Pulse Ox 98% on R/A; sm5 23:00 BP 148 / 84; Pulse 100; Resp 20; Pulse Ox 97% on R/A; sm5 10/29 00:00 BP 190 / 88; Pulse 104; Resp 18; Pulse Ox 99% on R/A; sm5 01:00 BP 149 / 79; Pulse 93; Resp 17; Pulse Ox 96% on R/A; sm5 10/28 21:02 Body Mass Index 47.61 (99.79 kg, 144.78 cm) lg3 MDM: 10/28 21:14 Patient medically screened. cp 10/29 00:40 Data reviewed: vital signs, nurses notes, lab test result(s), radiologic studies, CT cp scan. 00:40 Differential diagnosis: nephrolithiasis, pyelonephritis, UTI, sepsis. Counseling: I had cp a detailed discussion with the patient and/or guardian regarding: the historical points, exam findings, and any diagnostic results supporting the discharge/admit diagnosis, lab results, radiology results. Response to treatment: the patient's symptoms have markedly improved after treatment. Physician consultation: Eusebia DUBON was called at 00:35, was contacted at 00:35, regarding admission, to the medical/surgical unit. patient's condition. 10/28 21:16 Order name: CBC with Diff; Complete Time: 00:28 cp 10/29 00:28 Interpretation: Normal except: WBC 11.5; HGB 11.1; HCT 33.2; MCV 79.3; MCH 26.5; RDW cp 16.1; MPV 7.2; EOSINOPHIL % 6.8; EOSA 0.8. 10/28 21:16 Order name: CMP; Complete Time: 00:28 10/29 00:29 Interpretation: Normal except: K 5.2; GLUC 261; BUN 31; CRE 1.92; GFR 28; AST 8; BILIT cp < 0.1; CA 8.1; TP 6.3; ALB 2.6; GLOB 3.7; A/G 0.7. 10/28 21:16 Order name: Lipase; Complete Time: 00:28 cp 10/28 21:16 Order name: Urine Microscopic Only; Complete Time: 22:53 10/28 22:53 Interpretation: Normal except: UWBC 5-10; URBC 5-10. 10/28 21:38 Order name: Urine Dipstick-Ancillary; Complete Time: 22:53 [facility] 10/28 22:53 Interpretation: Normal except: UGLUC 1+; UBLD 1+; UPROT 3+; U NIT Positive. 10/28 21:38 Order name: Urine --Ancillary (enter results); Complete Time: 00:28 [facility] 10/28 21:57 Order name: Stone Protocol [facility] 10/29 00:19 Order name: Urine Culture [facility] 10/29 00:41 Order name: COVID-19/FLU A+B (Document "Date of Onset" if Symptomatic) [facility] 10/28 21:16 Order name: IV Saline Lock; Complete Time: 21:39 cp 10/28 21:16 Order name: Labs collected and sent; Complete Time: 21:39 cp 10/28 21:16 Order name: Urine Dipstick-Ancillary (obtain specimen); Complete Time: 21:38 cp 10/28 21:16 Order name: Urine Test (obtain specimen); Complete Time: 21:38 cp Administered Medications: 10/28 21:53 Drug: Pepcid (famotidine) 20 mg Route: IVP; Site: left antecubital; [facility] 10/29 01:38 Follow up: Response: No adverse reaction [facility] 10/28 21:53 Drug: Zofran (Ondansetron) 4 mg Route: IVP; Site: left antecubital; 5 10/29 01:38 Follow up: Response: Nausea unchanged [facility] 10/28 21:53 Drug: Dilaudid (HYDROmorphone) 1 mg Route: IVP; Site: left antecubital; [facility] 10/29 01:38 Follow up: Response: Pain is decreased 5 10/28 21:53 Drug: NS 0.9% 500 ml Route: IV; Rate: bolus; Site: left antecubital; 5 22:37 Follow up: IV Status: Completed infusion; IV Intake: 500ml 5 22:58 Drug: Zofran (Ondansetron) 4 mg Route: IVP; Site: left antecubital; 5 10/29 01:38 Follow up: Response: Nausea is decreased 5 10/28 23:38 Drug: NS 0.9% 500 ml Route: IV; Rate: 125 ml/hr; Site: left antecubital; 5 10/29 03:10 Not Given (pt already having fluids runningg): NS 0.9% 1000 ml IV at 125 ml/hr sm5 continuous Disposition Summary: 10/29/21 00:40 Hospitalization Ordered Hospitalization Status: Observation cp Provider: Araseli Bowie cp Location: Telemetry/MedSurg (observation) cp Condition: Stable cp Problem: new cp Symptoms: have improved cp Bed/Room Type: Standard cp Room Assignment: 219(10/29/21 02:01) cg Diagnosis - UTI/ Urinary tract infection, site not specified cp - Other injury of left kidney, initial encounter cp - Hyperkalemia cp - Diabetes mellitus due to underlying condition with hyperglycemia cp Forms: - Medication Reconciliation Form cp - SBAR form cp Addendum: 11/01/2021 18:12 Co-signature as Attending Physician, Leon Peterson MD I agree with the assessment and k dr plan of care. Signatures: Dispatcher [employer] [facility] Leon Peterson MD MD [facility] Crescencio Storey PA PA cp Kaylyn Martinez, RN RN cg Kamila De Santiago RN RN lg3 Harriet Gama RN RN sm5 Corrections: (The following items were deleted from the chart) 10/28 21:56 21:17 Stone Protocol+CT.RAD.BRZ ordered. [facility] 10/29 02:01 00:40 cp cg
--- NOTE | 2021-10-29 00:41 | ER ---
Nurse's Notes [facility] Name: Barb Cortez Age: 45 yrs Sex: Female : 1975 Arrival Date: 10/28/2021 Time: 20:55 Bed 5 Private MD: Diagnosis: UTI/ Urinary tract infection, site not specified;Other injury of left kidney, initial encounter;Hyperkalemia;Diabetes mellitus due to underlying condition with hyperglycemia Presentation: 10/28 21:02 Chief complaint: Patient states: left sided kidney pain starting this morning and lg3 getting worse. reports only having one kidney. blood pressure and blood glucose have also been running high for the last several days. Coronavirus screen: Client denies travel out of the [place] in the last 14 days. At this time, the client does not indicate any symptoms associated with coronavirus-19. Ebola Screen: No symptoms or risks identified at this time. Initial Sepsis Screen: Does the patient meet any 2 criteria? No. Patient's initial sepsis screen is negative. Does the patient have a suspected source of infection? No. Patient's initial sepsis screen is negative. Risk Assessment: Do you want to hurt yourself or someone else? Patient reports no desire to harm self or others. Onset of symptoms was October 28, 2021. 21:02 Method Of Arrival: Wheelchair lg3 21:02 Acuity: HARI 3 lg3 Triage Assessment: 21:07 General: Appears in no apparent distress. uncomfortable, Behavior is calm, cooperative. lg3 Pain: Complains of pain in left low back and left mid back. EENT: No deficits noted. No signs and/or symptoms were reported regarding the EENT system. Neuro: No deficits noted. Level of Consciousness is awake, alert, obeys commands, Oriented to person, place, time, situation. Cardiovascular: No deficits noted. Denies chest pain, shortness of breath. Respiratory: No deficits noted. Airway is patent Trachea midline Respiratory effort is even, unlabored, Respiratory pattern is regular, symmetrical. GI: No deficits noted. Abdomen is round non-distended. : No deficits noted. No signs and/or symptoms were reported regarding the genitourinary system. Derm: No deficits noted. No signs and/or symptoms reported regarding the dermatologic system. Skin is intact, is healthy with good turgor, Skin is dry. Musculoskeletal: No deficits noted. No signs and/or symptoms reported regarding the musculoskeletal system. Amputation of right leg (BKA). 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 LMP N/A - control method lg3 Historical: - Allergies: 21:07 Aspirin; lg3 21:07 Benadryl; lg3 21:07 Ciprofloxacin; lg3 21:07 IV contrast; lg3 21:07 PENICILLINS; lg3 21:07 Toradol; lg3 21:07 Tramadol HCl; lg3 - Home Meds: 21:07 atorvastatin 10 mg Oral tab [Active]; Humalog 100 unit/mL Sub-Q soln [Active]; lg3 metformin 1,000 mg Oral tab 1 tab 2 times per day [Active]; Humulin 70/30 100 unit/mL (70-30) Sub-Q susp [Active]; lisinopril 5 mg Oral tab 1 tab once daily [Active]; amitriptyline 50 mg Oral tab 1 tab once daily [Active]; Seroquel 400 mg Oral tab 1 tab once daily [Active]; Depakote 500 mg Oral TbEC 1 tab 3 times per day [Active]; - PMHx: 21:07 Bipolar disorder; chronic kidney disease; Depression; Diabetes - IDDM; Hyperlipidemia; lg3 Hypertension; Kidney stones; Migraines; - PSHx: 21:07 Amputated below knee; right kidney removal; right; lg3 - Immunization history:: Adult Immunizations up to date, Client reports receiving the 2nd dose of the Covid vaccine. - Social history:: Smoking status: Patient reports the use of cigarette tobacco products, smokes one pack cigarettes per day. Patient/guardian denies using alcohol. Screenin:11 Abuse screen: Denies threats or abuse. Denies injuries from another. Nutritional lg3 screening: No deficits noted. Tuberculosis screening: No symptoms or risk factors identified. 10/29 03:11 Fall Risk No fall in past 12 months (0 pts). No secondary diagnosis (0 pts). IV access sm5 (20 points). Ambulatory Aid- None/Bed Rest/Nurse Assist (0 pts). Gait- Normal/Bed Rest/Wheelchair (0 pts) Mental Status- Oriented to own ability (0 pts). Total [place] Fall Scale indicates No Risk (0-24 pts). Assessment: 10/28 21:30 General: Appears in no apparent distress. Behavior is cooperative. Pain: Complains of sm5 pain in back and left mid back and left low back. Neuro: No deficits noted. Level of Consciousness is awake, alert, obeys commands, Oriented to person, place, time, situation. Cardiovascular: No deficits noted. Capillary refill < 3 seconds Patient's skin is warm and dry. Respiratory: No deficits noted. Airway is patent Trachea midline Respiratory effort is even, unlabored. GI: Reports nausea, vomiting. : Reports pain in left flank(s). 22:37 Reassessment: No changes from previously documented assessment. Patient and/or family sm5 updated on plan of care and expected duration. Pain level reassessed. 23:30 Reassessment: No changes from previously documented assessment. Patient is alert, sm5 oriented x 3, equal unlabored respirations, skin warm/dry/pink. 10/29 00:28 Reassessment: No changes from previously documented assessment. 5 Vital Signs: 10/28 21:02 BP 168 / 87; Pulse 94; Resp 17 S; Temp 97.1(TE); Pulse Ox 99% on R/A; Weight 99.79 kg lg3 (R); Height 4 ft. 9 in. (144.78 cm) (R); Pain 10/10; 22:00 BP 158 / 84; Pulse 94; Resp 18; Pulse Ox 98% on R/A; sm5 23:00 BP 148 / 84; Pulse 100; Resp 20; Pulse Ox 97% on R/A; sm5 10/29 00:00 BP 190 / 88; Pulse 104; Resp 18; Pulse Ox 99% on R/A; sm5 01:00 BP 149 / 79; Pulse 93; Resp 17; Pulse Ox 96% on R/A; sm5 10/28 21:02 Body Mass Index 47.61 (99.79 kg, 144.78 cm) lg3 ED Course: 10/28 20:55 Patient arrived in ED. ds1 21:01 Harriet Gama, MARIA ALEJANDRA is Primary Nurse. sm5 21:07 Triage completed. lg3 21:07 Arm band placed on left wrist. lg3 21:09 Crescencio Storey PA is PHCP. cp 21:09 Leon Peterson MD is Attending Physician. cp 21:35 Inserted saline lock: 20 gauge in left antecubital area, using aseptic technique. Blood [facility] collected. 21:39 CBC with Diff Sent. sm5 21:39 CMP Sent. sm5 21:39 Lipase Sent. sm5 21:39 Urine Microscopic Only Sent. sm5 21:39 Urine --Ancillary (enter results) Sent. [facility] 10/29 00:20 Stone Protocol In Process Unspecified. EDMS 00:39 Araseli Bowie MD is Hospitalizing Provider. cp 03:11 Patient has correct armband on for positive identification. Bed in low position. Call [facility] light in reach. Side rails up X2. 03:11 No provider procedures requiring assistance completed. Patient admitted, IV remains in [facility] place. Administered Medications: 10/28 21:53 Drug: Pepcid (famotidine) 20 mg Route: IVP; Site: left antecubital; [facility] 10/29 01:38 Follow up: Response: No adverse reaction [facility] 10/28 21:53 Drug: Zofran (Ondansetron) 4 mg Route: IVP; Site: left antecubital; 5 10/29 01:38 Follow up: Response: Nausea unchanged [facility] 10/28 21:53 Drug: Dilaudid (HYDROmorphone) 1 mg Route: IVP; Site: left antecubital; 5 10/29 01:38 Follow up: Response: Pain is decreased [facility] 10/28 21:53 Drug: NS 0.9% 500 ml Route: IV; Rate: bolus; Site: left antecubital; 5 22:37 Follow up: IV Status: Completed infusion; IV Intake: 500ml [facility] 22:58 Drug: Zofran (Ondansetron) 4 mg Route: IVP; Site: left antecubital; 5 10/29 01:38 Follow up: Response: Nausea is decreased [facility] 10/28 23:38 Drug: NS 0.9% 500 ml Route: IV; Rate: 125 ml/hr; Site: left antecubital; 5 10/29 03:10 Not Given (pt already having fluids runningg): NS 0.9% 1000 ml IV at 125 ml/hr [facility] continuous Intake: 10/28 22:37 IV: 500ml; Total: 500ml. [facility] Outcome: 10/29 00:40 Decision to Hospitalize by Provider. cp 03:11 Admitted to Med/surg accompanied by tech, via wheelchair, with chart. sm5 03:11 Condition: stable 03:11 Instructed on the need for admit. 03:12 Patient left the ED. sm5 Signatures: Dispatcher [employer] EDJen Hurt ds1 Crescencio Storey PA PA cp Gibson, Lacie, RN RN lg3 Harriet Gama RN RN sm5
--- NOTE | 2021-10-29 01:24 | P.HP ---
Certification for Inpatient Patient admitted to: Inpatient With expected LOS: <2 Midnights Patient will require the following post-hospital care: None Practitioner: I am a practitioner with admitting privileges, knowledge of patient current condition, hospital course, and medical plan of care. Services: Services provided to patient in accordance with Admission requirements found in Title 42 Section 412.3 of the Code of Federal Regulations Patient History Date of Service: 10/29/21 Reason for admission: UTI, Hyperkalemia History of Present Illness: Patient is a 45-year-old female with past medical history of hypertension, type 2 diabetesinsulin-dependent, right nephrectomy who presented to the ED with complaints of left-sided flank pain that began this morning and has progressed. She also complains of nausea and vomiting. In the ED, labs significant for creatinine of 1.92 (baseline around 1.5), WBC 11.5, potassium 5.2, urine positive for UTI. CT showed no evidence of urinary stone or obstruction. Patient has been admitted for UTI in the past and tolerated Dilaudid, Phenergan, and Rocephin. VSS. Patient reports her pain has improved. Will admit patient for further treatment. Allergies aspirin Allergy (Verified 03/08/18 05:36) Itching/Hives/Rash ciprofloxacin [From Cipro] Allergy (Verified 03/08/18 05:36) Hives/Rash diphenhydramine [From Benadryl] Allergy (Verified 03/08/18 05:36) Unknown mushroom Allergy (Verified 03/08/18 05:36) Hives/Rash Penicillins Allergy (Verified 03/08/18 05:37) Shortness of breath tramadol Allergy (Verified 03/08/18 05:36) Unknown IVP Dye Adverse Reaction (Uncoded 06/03/17 01:23) Shortness of breath mushrooms Adverse Reaction (Uncoded 06/03/17 04:47) Anaphylaxis Home medications list reviewed: Yes Home Medications: Amitriptyline [Elavil*] 100 mg PO DAILY 07/02/18 Atorvastatin Calcium 40 mg PO DAILY 07/02/18 Fluoxetine HCl 60 mg PO BEDTIME 07/02/18 Fluoxetine HCl [Prozac] 20 mg PO DAILY 07/02/18 Insulin Glargine Human [Lantus*] 40 units PO BEDTIME 07/02/18 Insulin Lispro [Humalog] 10 units SQ TID 07/02/18 Metformin HCl [Glucophage] 500 mg PO BID 07/02/18 Prazosin HCl 1 mg PO BEDTIME 07/02/18 Sumatriptan [Imitrex*] 1 tab PO DAILY PRN 07/02/18 Cephalexin [Keflex] 500 mg PO Q12H #6 cap 07/04/18 - Past Medical/Surgical History Diabetic: Yes -: IDDM -: Hypertension -: severe depression -: PTSD -: high cholesterol -: BKA right leg -: right kidney removal -: x 2 Psychosocial/ Personal History: Patient lives at home with her and daughter. - Family History Father -: Heart disease, Hypertension, Diabetes Mother -: Hypertension, Diabetes, Cancer - Social History Smoking Status: Current every day smoker Alcohol use: No CD- Drugs: No Caffeine use: Yes Place of Residence: Home Review of Systems Gastrointestinal: Nausea, Vomiting, Abdominal Pain Physical Examination - Physical Exam General: Alert, In no apparent distress, Oriented x3 HEENT: Atraumatic, PERRLA, Mucous membr. moist/pink, EOMI, Sclerae nonicteric Neck: Supple, 2+ carotid pulse no bruit, No LAD, Without JVD or thyroid abnormality Respiratory: Clear to auscultation bilaterally, Normal air movement Cardiovascular: Regular rate/rhythm, Normal S1 S2 Gastrointestinal: Normal bowel sounds, No tenderness Musculoskeletal: No tenderness Integumentary: No rashes Neurological: Normal speech, Normal strength at 5/5 x4 extr, Normal tone, Normal affect - Studies Laboratory Data (last 24 hrs) 10/28/21 21:34: Sodium 137, Potassium 5.2 H, BUN 31 H, Creatinine 1.92 H, Glucose 261 H, Total Bilirubin < 0.1 L, AST 8 L, ALT 21, Alkaline Phosphatase 103, Lipase 175 10/28/21 21:34: WBC 11.5 H, Hgb 11.1 L, Hct 33.2 L, Plt Count 339 Assessment and Plan - Problems (Diagnosis) (1) UTI (urinary tract infection) Current Visit: Yes Status: Acute Qualifiers: Urinary tract infection type: acute pyelonephritis Qualified Code(s): N10 - Acute pyelonephritis (2) Type 2 diabetes mellitus Current Visit: Yes Status: Chronic Qualifiers: Diabetes mellitus long-term insulin use: with intermediate frame tender use Diabetes mellitus complication status: without complication Qualified Code(s): E11.9 - Type 2 diabetes mellitus without complications; Z79.4 - retirement (current) use of insulin (3) Hyperkalemia Current Visit: Yes Status: Acute (4) Nausea and vomiting Current Visit: Yes Status: Acute Qualifiers: Vomiting type: unspecified Qualified Code(s): R11.2 - Nausea with vomiting, unspecified (5) ERICKA (acute kidney injury) Current Visit: Yes Status: Acute (6) Hypertension Onset Date: 03/08/18 Current Visit: Yes Status: Chronic Qualifiers: Hypertension type: primary hypertension Qualified Code(s): I10 - Essential (primary) hypertension - Plan -ceftriaxone for UTI/pyelo. Patient has PCN allergy listed but has tolerated rocephin without reaction previously. -Phenegran PRN nausea. dilaudid PRN pain -IVF at 125cc/hr -clear liquid diet until patient can tolerate more -potassium currently 5.2. will trend and monitor VS on telemetry. -achs accuchecks with moderate sliding scale insulin -continue home medications -heparin for DVT ppx Discharge Plan: Home Plan to discharge in: 48 Hours - Advance Directives Does patient have a Living Will: No Does patient have a Durable POA for Healthcare: Yes - Code Status/Comfort Care Code Status Assessed: Yes (Full) Critical Care: No Time Spent Managing Pts Care (In Minutes): 55
[2021-10-29 01:55] LABS: SARS-COV-2 RT PCR NEGATIVE (NEGATIVE)
[2021-10-29] MEDS ORDERED: ZOLPIDEM TARTRATE 5 MG TABLET PO PRN (02:51)
[2021-10-29] MEDS ORDERED: ACETAMINOPHEN 500 MG TAB PO PRN (02:51)
[2021-10-29] MEDS: HYDROMORPHONE HCL 1 MG/ML INJ IV PRN ×3 (03:35→20:27)
[2021-10-29] MEDS: NA CHLORIDE 0.9% 1,000 ML IV SCH ×3 (03:36→20:39)
[2021-10-29] MEDS ORDERED: HYDRALAZINE HCL 20 MG/ML VIAL IV ONE (04:27)
[2021-10-29 04:40] VITALS: BMI 47.5
[2021-10-29 05:47] LABS: Absolute Lymphocytes (CBC) 2.4 K/uL (0.7-4.9); Hematocrit 35.4 % (36.0-45.0); Lymphocytes % 19.8 % (15.3-44.8); MPV 7.3 fL (7.6-11.3); RBC Red Blood Cell Count 4.38 M/uL (3.86-4.86)
[2021-10-29 06:07] LABS: Albumin 2.7 g/dL (3.4-5.0); Bilirubin Total 0.1 mg/dL (0.2-1.0); Protein, Total 6.5 g/dL (6.4-8.2)
[2021-10-29 06:10] LABS: Potassium 5.7 mmol/L (3.5-5.1)
[2021-10-29] MEDS ORDERED: FUROSEMIDE 20 MG/ 2ML VIAL IV ONE (07:20)
[2021-10-29] MEDS: PROMETHAZINE INJ 25 MG/ML AMP IV PRN ×3 (07:59→21:42)
[2021-10-29] MEDS: INSULIN -REGULAR HUMAN 50 UNIT/0.5 ML ML SQ SCH ×4 (07:59→20:30)
[2021-10-29] MEDS: HEPARIN 5000 UNIT/ML 1 ML VIAL SQ SCH ×2 (08:00→16:54)
[2021-10-29] MEDS: CEFTRIAXONE 1,000 MG in NA CHLORIDE 0.9% 50 ML IVPB SCH ×2 (08:00→20:30)
[2021-10-29 08:14] VITALS: O2SAT 96
--- NOTE | 2021-10-29 10:26 | RAD REPORT ---
EXAM DESCRIPTION: CT ABDOMEN PELVIS WITHOUT IV CONTRAST CLINICAL HISTORY: Female, 45 years old, FLANK PAIN COMPARISON: None. TECHNIQUE: CT acquisition of the abdomen and pelvis without contrast. Coronal and sagittal reformatt ed images provided. This exam was performed according to departmental dose-optimization program which includes automated exposure control, adjustment of the mA and/or kV according to patient size, and/o r use of iterative reconstruction technique. FINDINGS: SUPPORTIVE DEVICES: None. LOWER CHEST: No significant abnormality within the lower chest. ABDOMEN AND PELVIS: Lack of intravenous contrast limits evaluation of the abdominal and pelvic viscera and vascular struc tures. Liver: Mild contour nodularity. Gallbladder and bile ducts: Unremarkable. Pancreas: Unremarkable. Spleen: Unremarkable. Adrenal glands: Unremarkable. Kidneys and ureters: The right kidney is absent. Mild left perinephric stranding without evidence of stone or obstruction. Bladder: Small amount of antidependent intraluminal gas without wall thickening. Reproductive organs: Intrauterine contraceptive device is present. The ovaries are unremarkable. GI tract: Small hiatal hernia with ingested contents in the distal esophagus. Otherwise the stomach, duodenum, and small bowel are unremarkable. The appendix is within normal limits. The large bowel is normal in caliber without wall thickening. Lymph nodes: No obvious adenopathy. Peritoneum: No evidence of ascites, fluid collection, or free air. Abdominal wall: Ventral postsurgical change. Mild anasarca. Capacious right lateral abdominal wall wi th evidence of prior postsurgical change and diminutive musculature. Vessels: Atherosclerosis without evidence of aneurysm. MUSCULOSKELETAL: No acute osseous abnormality. Degenerative changes of the spine and pelvis. IMPRESSION: 1. No evidence of urinary stone or obstruction. The right kidney is surgically absent. 2. Foci of intraluminal gas within the urinary bladder without wall thickening. Correlate for recen t instrumentation. 3. Small hiatal hernia with ingested contents in the distal esophagus likely representing gastroeso phageal reflux. 4. Mild hepatic contour nodularity of the liver suggestive of cirrhosis. 5. Capacious right lateral abdominal wall with evidence of prior postsurgical change and diminutive musculature. Electronically signed by: Cheng Burnett MD 10/28/2021 10:43 PM CDT Due to temporary technical issues with the PACS/Fluency reporting system, reports are being signed by the in house radiologists without review as a courtesy to insure prompt reporting. The interpreting radiologist is fully responsible for the content of the report.
[2021-10-29 17:15] LABS: Potassium 4.6 mmol/L (3.5-5.1)
[2021-10-29] MEDS ORDERED: CEFTRIAXONE 1000 MG/VIAL ONE (20:24)
[2021-10-29] MEDS ORDERED: NA CHLORIDE 0.9% 50 ML ONE (20:26)
[2021-10-30] MEDS: HEPARIN 5000 UNIT/ML 1 ML VIAL SQ SCH ×3 (01:30→17:00)
[2021-10-30] MEDS: NA CHLORIDE 0.9% 1,000 ML IV SCH ×2 (02:51→08:24)
[2021-10-30 04:18] LABS: Absolute Lymphocytes (CBC) 3.2 K/uL (0.7-4.9); Hematocrit 36.1 % (36.0-45.0); Lymphocytes % 27.9 % (15.3-44.8); MPV 7.1 fL (7.6-11.3); RBC Red Blood Cell Count 4.55 M/uL (3.86-4.86)
[2021-10-30 04:32] LABS: Albumin 2.6 g/dL (3.4-5.0); Bilirubin Total 0.2 mg/dL (0.2-1.0); Magnesium 1.5 mg/dL (1.8-2.4); Phosphorus 3.6 mg/dL (2.5-4.9); Potassium 4.7 mmol/L (3.5-5.1); Protein, Total 6.5 g/dL (6.4-8.2)
[2021-10-30] MEDS: CEFTRIAXONE 1,000 MG in NA CHLORIDE 0.9% 50 ML IVPB SCH (08:28)
[2021-10-30] MEDS: HYDROMORPHONE HCL 1 MG/ML INJ IV PRN (08:32)
[2021-10-30] MEDS: INSULIN -REGULAR HUMAN 50 UNIT/0.5 ML ML SQ SCH ×2 (08:45→11:30)
[2021-10-30] MEDS ORDERED: Magnesium Sulfate 2gm IVPB 2 G/50 ML BAG IV ONE (09:35)
[2021-10-30] MEDS ORDERED: MAGNESIUM CHLORIDE 64 MG TAB PO ONE (09:45)
[2021-10-30 13:29] VITALS: BP 132/69; TEMP 97.2
== END 2021-10-30 17:25 | disposition home or self-care (01) | DRG 690 ==
LOC: ER 20:50 → ERHOLD 10-29 01:18 → 2ND 10-29 02:29
PROVIDERS: ADMIT Hospitalist; ATTEND Hospitalist
DX: N10 Acute pyelonephritis (principal); N17.9 Acute kidney failure, unspecified; E11.9 Type 2 diabetes mellitus without complications; Z79.4 Long term (current) use of insulin; E87.5 Hyperkalemia; I10 Essential (primary) hypertension; Z89.511 Acquired absence of right leg below knee; Z88.0 Allergy status to penicillin; Z20.822 Contact with and (suspected) exposure to COVID-19
CPT/HCPCS: 0240U; 36415; 74176; 76377; 80048; 80053; 81003; 81015; 81025; 82947; 83690; 83735; 84100; 85025; 87077; 87086; 87088; 87186; 96361; 96374; 96375; 99285; J0360; J1170; J1644; J1815; J1940; J2405; J2550; J3475; J3490; J7030; J7040

== ENCOUNTER 2021-12-30 22:05 | Emergency (ER) | payer OTHER ==
--- OUTSIDE RECORDS SUMMARY | 2021-12-30 22:28 | XMS REPORT | Continuity of Care Document ---
:1975 Author Organization [facility] t Address [address] [place] [address] Care Team Providers Name Role Phone DEV Primary Care Physician Unavailable NEPTALI Attending Clinician Unavailable DANE Attending Clinician Unavailable Doctor Unassigned, Name Attending Clinician Unavailable Dev MON Attending Clinician Milton MON Attending Clinician Aleshia MON, Jung Attending Clinician Payers Payer Name Policy Type Policy Number Effective Date Expiration Date Claude jacobs [facility] STAR [id number] 2018 00:00:00 PLUS Problems Condition Condition Condition Status Onset Resolution Last Treating Co mments Source Name Details Category Date Date Treatment Clinician Date Pyelonephr Pyelonephr Disease Active U nivers itis of itis of 4-29 ity of left left 00:00: [place] kidney kidney 00 [facility] Disease Active Unive rs discharge discharge 4-29 ity of [place]up [place] [facility] Elevated Elevated Disease Active Unive rs serum serum 4-29 [place] creatinine [place] [facility] Dehydratio Dehydratio Disease Active 2022-0 U nivers n n 1-27 ity of 00:00: [place] 00 Medical Branch Nicotine Nicotine Disease Active Unive rs dependence dependence 1-27 it y of with with 00:00: [place] current current 00 Medical use use Branch Contusion Contusion Disease Active 2020-07 Uni vers of left of left 0-20 ity of lower lower 00:00: [place] extremity, extremity, 00 Me dical sequela sequela Branch Pre-operat Pre-operat Disease Active 2020-07 U nivers yari yari 0-20 ity [facility] CKD stage CKD stage Disease Active 2020-07 Uni vers 3 due to 3 due to 0-20 ity of type 2 type 2 00:00: [place] diabetes diabetes 00 Medica l mellitus mellitus Branch Need for Need for Disease Active 2020-07 Unive rs hepatitis hepatitis 0-20 ity of C C 00:00: [place] screening screening 00 Medi donald test test Branch Dyslipidem Dyslipidem Disease Active 2020-07 U nivers ia ia 0-20 ity of 00:00: [place] 00 Medical Branch Essential Essential Disease Active 2020-07 Uni vers hypertensi hypertensi 0-20 it y of on on 00:00: [place] [facility] Fall, Fall, Disease Active 2020-07 Univers sequela sequela 0-20 ity of 00:00: [place] [facility] Decay, Decay, Disease Active 2020-07 Univers teeth teeth 0-20 ity of 00:00: [place] 00 Medical Branch Bipolar Bipolar Disease Active Univers disorder disorder 6-04 ity of with with 00:00: [place] severe severe 00 Medical bahman bahman Branch [...] dependence dependence 3-02 it y of 00:00: [place] 00 Medical Branch Anxiety Anxiety Disease Active Univers and and 3-02 ity of depression depression [place] [facility] [place] Presence Presence Disease Active Unive [...] exam eye exam 1-21 ity of 00:00: [place] 00 Medical Branch Morbid Morbid Disease Active Univers obesity obesity 1-21 ity of 00:00: [place] 00 Medical Branch Morbid Morbid Disease Active Univers obesity obesity 1-21 ity of with body with body 00:00[place] mass index mass index 00 Me dical (BMI) of (BMI) of Branch 40.0 or 40.0 or higher higher Below-knee Below-knee Disease Active U nivers amputation amputation 9-15 it y of of right of right 00:00: [place] lower lower 00 Medical extremity extremity Bran ch Hypotensio Hypotensio Disease Active U nivers n, n, 8-18 ity of unspecifie unspecifie 00:[place] 00 Medical hypotensio hypotensio Br anch n type n type Restless Restless Disease Active Unive rs leg leg 8-14 ity of 00:00: [place] 00 Medical Branch Suspected Suspected Disease Active Uni vers COVID-19 COVID-19 4-23 ity of virus virus 00:00: [place] infection infection 00 [facility] Hx of BKA, Hx of BKA, Disease Active U nivers right right 4-06 ity of 00:00: [place] 00 Medical Branch Migraine Migraine Disease Active Unive rs without without 2-13 ity of status status 00:00: [place] migrainosu migrainosu 00 Me dical s, not s, not Branch intractabl intractabl e, e, unspecifie unspecifie d migraine d migraine type type Chronic Chronic Disease Active Univers bilateral bilateral 2-13 ity of low back low back 00:00: [place] pain with pain with 00 Medi donald bilateral bilateral Bran ch sciatica sciatica Hx of Hx of Disease Active Univers bipolar bipolar 2-13 ity of disorder disorder 00:00: Medical Branch Lumbar Lumbar Disease Active Univers herniated herniated 2-13 ity of disc disc 00:00: 00 Medical Branch Type 2 Type 2 [...] DRAMINE INGREDI 7-16 ity of HCL 00:00: Medical Branch Diphenhy Propensi Active Hives Univer s dramine ty to 7-16 ity of Hcl adverse 00:00: [place] reaction Medical s Branch MUSHROOM DRUG Active Low Other-Cmnt 2018-07 Univ ers INGREDI 2 ity of 00:00: [place] [facility] Mushroom Propensi Active Other - See 2018-07 "pass U nivers ty to comments 08-13 out" ity of adverse 00:00: [place] reaction Medical s Branch TRAMADOL DRUG Active N/V Univers INGREDI 8-27 ity of 00:00: [place] [facility] Tramadol Propensi Active Nausea 2019- drowsines Uni vers ty to and/or 8-27 s ity of adverse Vomiting 00:00: [place] reaction 00 Medical s Branch CIPROFLO DRUG Active Hives Univers XACIN INGREDI 9-30 ity of 00:00: [place] 00 Medical Branch PENICILL DRUG Active Anaphylaxis Uni vers IN INGREDI 9-30 ity of 00:00: [place] [facility] Ciproflo Propensi Active Hives Univer s xacin ty to 930 ity of adverse 00:00: [place] reaction 00 Medical s Branch Penicill Propensi Active Anaphylaxis Pt U nivers in ty to 9-30 states, ity of adverse 00:00: "I'll [place] reaction 00 flatline" Medic al s Branch Iodine Propensi Active Anaphylaxis Uni vers And ty to 07-14 ity of Iodide adverse 00:00: [place] Containi reaction 00 Medica l ng s Branch Products ASPIRIN DRUG Active Hives 2005- Univers INGREDI - ity of 00:00: [place] 00 [facility] IODINE Drug Active Anaphylaxis 2005- Unive rs AND Class - ity of IODIDE 00:00: [place] CONTAINI 00 [facility] Branch PRODUCTS Aspirin Propensi Active Hives 2005- Univers ty to 07-14 ity of adverse 00:00: [place] reaction 00 [facility] Social History Social Habit Start Date Stop Date Quantity Comments Source History of tobacco Cigarette Smoker University of use [facility] Alcohol intake 2021-11-10 2021-11-10 Ex-drinker [facility] 00:00:00 00:00:00 (finding) [facility] Exposure to 2021-10-29 2021-11-08 Not sure University SARS-CoV-2 (event) 00:00:00 14:49:[address] [facility] Cigarettes smoked 2020-08-02 2020-08-02 Univers ity of current (pack per 00:00:00 00:00:00 ) - Reported [place] Cigarette 2020-08-02 2020-08-02 University of pack-years 00:00:00 00:00:[address] [facility] Tobacco use and 2020-08-02 2020-08-02 Never used Universit y of exposure 00:00:00 00:00:[address] [facility] Sex [birth year] At [birth year] Universit y of 00:00:00 00:00:[address] [facility] Smoking Status Start Date Stop Date Source Current every day smoker 2020-08-02 00:00:[address] [facility] Medications Ordered Filled Start Stop Current Ordering Indication Dosage Frequency Signature Comments Components Source Medication Medication Date Date Medication? Clinician (SIG) Name Name AMITRIPTYLI Yes [id number] TAKE 1 Univers [place] 100 mg 5-10 06 TABLET BY ity o f tablet 00:00: MOUTH 00 EVERYDAY Medical AT BEDTIME [place] OMEPRAZOLE Yes [id number] TAKE 1 Univers 40 mg 5-10 CAPSULE BY ity of capsule 00:00: MOUTH EVERY DAY Medical [place] AMITRIPTYLI Yes [id number] TAKE 1 Univers NE 100 mg 5-10 06 TABLET BY ity o f tablet 00:00: MOUTH [place] 00 EVERYDAY Medical AT BEDTIME Branch OMEPRAZOLE 2021-0 Yes [id number] TAKE 1 Univers 40 mg 5-10 CAPSULE BY ity of capsule 00:00: MOUTH [place] 00 EVERY DAY Medical Branch lisinopriL 2021-0 Yes [id number] 15mg Take 1.5 Univers 10 mg 4-29 tablets by ity of tablet 00:00: mouth [place] 00 daily. Medical Hold if BP Branch < 110/60 SITagliptin 2021-0 Yes [id number] 100mg Take 1 Univers (JANUVIA) 4-29 tablet by ity o f 100 mg 00:00: mouth [place] tablet 00 daily. Medical Branch metFORMIN 2021-0 Yes [id number] 1000mg Take 1 Univers 1,000 mg 4-29 tablet by ity of tablet 00:00: mouth 2 [place] 00 (two) Medical times Branch daily with meals. Insulin Asp 2021-0 Yes [id number] 30U inject 30 Univers Prt-Insulin 4-29 Units ity of Aspart 00:00: under the [place] (NOVOLOG 00 skin 2 Medical MIX 70-30) (two) Branch 100 unit/mL times (70-30) daily with injection meals. E11.65 lisinopriL 2021-0 Yes [id number] 15mg Take 1.5 Univers 10 mg 4-29 tablets by ity of tablet 00:00: mouth [place] 00 daily. Medical Hold if BP Branch < 110/60 SITagliptin 2021-0 Yes [id number] 100mg Take 1 Univers (JANUVIA) 4-29 tablet by ity o f 100 mg 00:00: mouth [place] tablet 00 daily. Medical Branch metFORMIN 2021-0 Yes [id number] 1000mg Take 1 Univers 1,000 mg 4-29 tablet by ity of tablet 00:00: mouth 2 [place] 00 (two) Medical times Branch daily with meals. Insulin Asp 2021-0 Yes [id number] 30U inject 30 Univers Prt-Insulin 4-29 Units ity of Aspart 00:00: under the [place] (NOVOLOG 00 skin 2 Medical MIX 70-30) (two) Branch 100 unit/mL times (70-30) daily with injection meals. E11.65 lisinopriL 2021-0 Yes [id number] 15mg Take 1.5 Univers 10 mg 4-29 tablets by ity of tablet 00:00: mouth [place] 00 daily. Medical Hold if BP Branch < 110/60 SITagliptin 0 Yes [id number] 100mg Take 1 Univers (JANUVIA) 4-29 tablet by ity o f 100 mg 00:00: mouth [place] tablet 00 daily. Medical Branch metFORMIN 0 Yes [id number] 1000mg Take 1 Univers 1,000 mg 4-29 tablet by ity of tablet 00:00: mouth 2 [place] 00 (two) Medical times Branch daily with meals. Insulin Asp Yes [id number] 30U inject 30 Univers Prt-Insulin 4-29 Units ity of Aspart 00:00: under the [place] (NOVOLOG 00 skin 2 Medical MIX 70-30) (two) Branch 100 unit/mL times (70-30) daily with injection meals. E11.65 pregabalin Yes [id number] 75mg Take 1 Univers (LYRICA) 75 1-27 capsule by it y of mg capsule 00:00: [place] 00 (two) Medical times Branch daily. Butalbital- Yes [id number] 1{capsu Take 1 Univers Acetaminoph 1-27 le} capsule by it y of en-Caff 00:00: mouth [place] (FIORICET) 00 every 8 Medica l 50-300-40 (eight) Branch mg per hours as capsule needed (Migraine) . pregabalin Yes [id number] 75mg Take 1 Univers (LYRICA) 75 1-27 capsule by it y of mg capsule 00:00: [place] 00 (two) Medical times Branch daily. Butalbital- Yes [id number] 1{capsu Take 1 Univers Acetaminoph 1-27 le} capsule by it y of en-Caff 00:00: mouth [place] (FIORICET) 00 every 8 Medica l 50-300-40 (eight) Branch mg per hours as capsule needed (Migraine) . pregabalin Yes [id number] 75mg Take 1 Univers (LYRICA) 75 1-27 capsule by it y of mg capsule 00:00: [place] 2 [place] 00 (two) Medical times Branch daily. Butalbital- Yes [id number] 1{capsu Take 1 Univers Acetaminoph 1-27 le} capsule by it y of en-Caff 00:00: mouth [place] (FIORICET) 00 every 8 Medica l 50-300-40 (eight) Branch mg per hours as capsule needed (Migraine) . Nitrofurant Yes [id number] 100mg Take 1 Univers oin&Nit. 1-01 capsule by ity o f Macrocryst 00:00: [place] (MACROBID) 00 (two) Medical 100 mg times Branch capsule daily. Nitrofurant Yes [id number] 100mg Take 1 Univers oin&Nit. 1-01 capsule by ity o f Macrocryst 00:00: mouth 2 [place] (MACROBID) 00 (two) Medical 100 mg times Branch capsule daily. Nitrofurant Yes [id number] 100mg Take 1 Univers oin&Nit. 1-01 capsule by ity o f Macrocryst 00:00: mouth 2 [place] (MACROBID) 00 (two) Medical 100 mg times Branch capsule daily. AMITRIPTYLI 2020-07 Yes [id number] TAKE 1 Univers NE 100 mg - 06 TABLET BY ity o f tablet 00:00: MOUTH [place] 00 EVERYDAY Medical AT BEDTIME Branch AMITRIPTYLI 2020-07- No [id number] TAKE 1 Univers NE 100 mg -24 05-10 06 TABLET BY ity of tablet 00:00: 00:00 MOUTH [place] 00 :00 EVERYDAY Medical AT BEDTIME Branch Insulin Asp 2020-07- No [id number] 30U inject 30 Univers Prt-Insulin -03 11-29 Units ity of Aspart 00:00: 00:00 under the [place] (NOVOLOG 00 :00 skin 2 Medical MIX 70-30) (two) Branch 100 unit/mL times (70-30) daily with injection meals. E11.65 metFORMIN 2020-07- No [id number] 1000mg Take 1 Univers 1,000 mg -03 11- tablet by ity o f tablet 00:00: 00:00 mouth 2 [place] 00 :00 (two) Medical times Branch daily with meals. SITagliptin 2020-07- No [id number] 100mg Take 1 Univers (JANUVIA) -03 11-29 tablet by ity of 100 mg 00:00: 00:00 mouth [place] tablet 00 :00 daily. Medical Branch OMEPRAZOLE 2020-07 Yes [id number] TAKE 1 Univers 40 mg 1-12 CAPSULE BY ity of capsule 00:00: MOUTH [place] 00 EVERY DAY Medical Branch OMEPRAZOLE 2020-07- No [id number] TAKE 1 Univers 40 mg 1-12 05-10 CAPSULE BY ity of capsule 00:00: 00:00 MOUTH [place] 00 :00 EVERY DAY Medical Branch Miscellaneo 2020-07 Yes Standard [facility] 07-16 rollatorR5 ity of Supply Misc 00:00: 5/W19.XXXS [place] 00 /M79.604/R Medical 06.02/I50. Branch 32/I51.7/E 11.3511: Use daily for ambulation /fall precaution Miscellaneo 2020-07 Yes Standard [facility] 07-16 rollatorR5 ity of Supply Misc 00:00: 5/W19.XXXS [place] 00 /M79.604/R Medical 06.02/I50. Branch 32/I51.7/E 11.3511: Use daily for ambulation /fall precaution Miscellaneo 2020-07 Yes Standard [facility] 07-16 rollatorR5 ity of Supply Misc 00:00: 5/W19.XXXS [place] 00 /M79.604/R Medical 06.02/I50. Branch 32/I51.7/E 11.3511: [...] it y of T ROLLATOR) 00:00: /R06.02/I5 [facility] 00 0.32/I51.7 Medical /E11.3511: Branch Use daily for ambulation /fall precaution (brand pending insurance approval) Miscellaneo 2020-07 Yes [id number] I10 - Univers us Medical 0-20 Dispense ity o f Supply Kit 00:00: blood [place] 00 pressure Medical cuff (any Branch brand), take BP at home BID atorvastati 2020-07 Yes [id number] 40mg Take 1 Univers n 40 mg 0-20 tablet by ity of tablet 00:00: mouth at [place] [address] bedtime. Medical Branch mupirocin 2 2020-07 Yes [id number] Apply to Univers % ointment 0-20 area(s) 3 ity of 00:00: (three) [place] 00 times Medical daily. Branch Miscellaneo 2020-07 Yes [id number] I10 - Univers us Medical 0-20 Dispense ity o f Supply Kit 00:00: blood [place] 00 pressure Medical cuff (any Branch brand), take BP at home BID atorvastati 2020-07 Yes [id number] 40mg Take 1 Univers n 40 mg 0-20 tablet by ity of tablet 00:00: mouth at [place] 00 bedtime. Medical Branch mupirocin 2 2020-07 Yes [id number] Apply to Univers % ointment 0-20 area(s) 3 ity of 00:00: (three) [place] 00 times Medical daily. Branch Miscellaneo 2020-07 Yes [id number] I10 - Univers us Medical 0-20 Dispense ity o f Supply Kit 00:00: blood [place] 00 pressure Medical cuff (any Branch brand), take BP at home BID atorvastati 2020-07 Yes [id number] 40mg Take 1 Univers n 40 mg 0-20 tablet by ity of tablet 00:00: mouth at [place] [address] bedtime. Medical Branch mupirocin 2 2020-07 Yes [id number] Apply to Univers % ointment 0-20 area(s) 3 ity of 00:00: (three) [place] 00 times Medical daily. Branch lisinopriL 2020-07- No [id number] 2.5mg Take 0.5 Univers 5 mg tablet 0-20 04-29 tablets by i ty of 00:00: 00:00 mouth [place] 00 :00 daily. Medical Hold if BP Branch < 110/60 ondansetron Yes [id number] 4mg Take 1 Univers (ZOFRAN 8-04 tablet by ity of ODT) 4 mg 00:00: mouth [place] disintegrat 00 every 8 Medic al ing tablet (eight) Branch hours as needed for Nausea and Vomiting (N/V). ondansetron Yes [id number] 4mg Take 1 Univers (ZOFRAN 8-04 tablet by ity of ODT) 4 mg 00:00: mouth [place] disintegrat 00 every 8 Medic al ing tablet (eight) Branch hours as needed for Nausea and Vomiting (N/V). ondansetron Yes [id number] 4mg Take 1 Univers (ZOFRAN 8-04 tablet by ity of ODT) 4 mg 00:00: mouth [place] disintegrat 00 every 8 Medic al ing tablet (eight) Branch hours as needed for Nausea and Vomiting (N/V). ALBUTEROL Yes [id number] INHALE 2 Univers 90 2-02 PUFFS BY ity of mcg/actuati 00:00: MOUTH [place] on inhaler 00 EVERY 6 Medica l HOURS Branch NEEDED FOR SHORTNESS OF BREATH ALBUTEROL Yes [id number] INHALE 2 Univers 90 2-02 PUFFS BY ity of mcg/actuati 00:00: MOUTH [place] on inhaler 00 EVERY 6 Medica l HOURS Branch NEEDED FOR SHORTNESS OF BREATH ALBUTEROL Yes [id number] INHALE 2 Univers 90 2-02 PUFFS BY ity of mcg/actuati 00:00: MOUTH [place] on inhaler 00 EVERY 6 Medica l HOURS Branch NEEDED FOR SHORTNESS OF BREATH HYDROcodone 2019-0 Yes 1{tbl} Take 1 Un ann marie -acetaminop 5-11 tablet by ity of hen 7.5-325 00:00: mouth 2 [place] mg per 00 (two) Medical tablet times Branch daily. HYDROcodone 2020-0 Yes 1{tbl} Take 1 Un ann marie -acetaminop 5-11 tablet by ity of hen 7.5-325 00:00: mouth 2 [place] mg per 00 (two) Medical tablet times Branch daily. HYDROcodone 2020-0 Yes 1{tbl} Take 1 Un ann marie -acetaminop 5-11 tablet by ity of hen 7.5-325 00:00: mouth 2 [place] mg per 00 (two) Medical tablet times Branch daily. ondansetron 2020-0 Yes TAKE 1 Univ ers 4 mg [...] Immunizations Ordered Filled Immunization Date Status Comments [facility] Immunization Name Name Pneumococcal 2021-10-04 Completed University o f Polysaccharide, 00:00:00 [place] Med ical PPSV23 (PNEUMOVAX) Branch Influenza Virus 2021-10-04 Completed Universit y of Vaccine Quad .5 mL 00:00:00 [facility] 6+ MO Branch Pneumococcal 2021-10-04 Completed University o f Polysaccharide, 00:00:00 [place] Med ical PPSV23 (PNEUMOVAX) Branch Influenza Virus 2021-10-04 Completed Universit y of Vaccine Quad .5 mL 00:00:00 [facility] 6+ MO Branch Pneumococcal 2021-10-04 Completed University o f Polysaccharide, 00:00:00 [place] Med ical PPSV23 (PNEUMOVAX) Branch Influenza Virus 2021-10-04 Completed Universit y of Vaccine Quad .5 mL 00:00:00 [facility] 6+ MO Branch SARS-COV-2 COVID-19 2021-03-08 Completed Unive rsity of PFIZER VACCINE 00:00:00 [facility] SARS-COV-2 COVID-19 2021-03-08 Completed Unive rsity of PFIZER VACCINE 00:00:00 [facility] SARS-COV-2 COVID-19 2021-03-08 Completed Unive rsity of PFIZER VACCINE 00:00:00 [facility] SARS-COV-2 COVID-19 2021-02-15 Completed Unive rsity of PFIZER VACCINE 00:00:00 [facility] SARS-COV-2 COVID-19 2021-02-15 Completed Unive rsity of PFIZER VACCINE 00:00:00 [facility] SARS-COV-2 COVID-19 2021-02-15 Completed Unive rsity of PFIZER VACCINE 00:00:00 [facility] Vital Signs Vital Name Observation Time Observation Value Comments Source Systolic blood 2021-11-08 19:49:00 121 mm[Hg] Univer sity of pressure [facility] Diastolic blood 2021-11-08 19:49:00 74 mm[Hg] Unive rsity of pressure [facility] Heart rate 2021-11-08 19:49:00 105 /min [facility] Respiratory rate 2021-11-08 19:49:00 18 /min [facility] acute hospital Body height 2021-11-08 19:49:00 144.8 cm [facility] Body weight 2021-11-08 19:49:00 100.835 kg [facility] BMI 2021-11-08 19:49:00 48.11 kg/m2 [facility] Oxygen saturation in 2021-11-08 19:49:00 94 /min [facility] blood by [facility] Pulse oximetry Branch Procedures Procedure Date / Time Performed Performing Clinician Sour e EXTERNAL PROVIDER 2021-11-21 05:01:00 Doctor Unassigned, No Univ [facility] RECORDS Name [facility] Branch Encounters Start End Encounter Admission Attending Care Care Encounter Source Date/Time Date/Time Type Type Clinicians Facility Department ID 2022-04-07 2022-04-07 Outpatient Jolie GUNDERSON [facility] [id number] Univers 08:30:00 08:30:00 SUNSHINE [id number] [facility] 2022-01-07 2022-01-07 Outpatient Jolie VELA [facility] [id number] Univers 13:00:00 13:00:00 JUAN RAMON [id number] [facility] 2021-12-12 2021-12-12 Outpatient Jolie VELA [facility] [id number] Univers 08:00:00 08:00:00 JUAN RAMON [id number] ity [facility] [facility] 2021-12-12 2021-12-12 [facility] [id number] Univers 08:00:00 08:00:00 JUAN RAMON ity [facility] [facility] 2021-11-21 2021-11-21 Orders Doctor SUNSHINE [id number] Univers 00:00:00 00:00:00 Only Unassigned, JEM [id number] [facility] [id number] [place] [phone] [address] 2021-11-17 2021-11-17 [facility] [id number] Univers 00:00:00 00:00:00 Mele MORALES [id number] i ty of [place] [id number] [place] PROF[place] [phone] [address] 2021-11-08 2021-11-08 Office [facility] [id number] Univers 14:40:00 15:16:44 Visit Mele MORALES [id number] i ty [place] [id number] [place] [id number] [address] 2020-02-02 2020-02-02 Telephone [facility] [id number] 00:00:00 00:00:00 Burak Morales [id number] [place] [id number] Professio [id number] [address] 2020-02-02 2020-02-02 Telephone [facility] [id number] 00:00:00 00:00:00 Ara Morales [id number] [place] [id number] Professio [phone] [address] 2020-02-02 2020-02-02 Telephone [facility] [id number] 00:00:00 00:00:00 Ara Morales [id number] [place] [id number] [facility] [phone] [place] [address] Building Results This patient has no known results.
[2021-12-31] MEDS ORDERED: ONDANSETRON 4 MG/2 ML VIAL ONE (01:26)
[2021-12-31] MEDS ORDERED: KETOROLAC 30 MG/ML INJ ONE (01:26)
[2021-12-31] MEDS ORDERED: NA CHLORIDE 0.9% 500 ML ONE (01:26)
[2021-12-31 01:45] LABS: Absolute Lymphocytes (CBC) 4.2 K/uL (0.7-4.9); Hematocrit 35.5 % (36.0-45.0); MPV 7.2 fL (7.6-11.3); RBC Red Blood Cell Count 4.42 M/uL (3.86-4.86)
[2021-12-31 02:20] LABS: Albumin 2.8 g/dL (3.4-5.0); Bilirubin Total 0.1 mg/dL (0.2-1.0); Blood Morphology Comment NOT SEEN (NOT SEEN); Platelet Estimate ADEQ; Protein, Total 6.8 g/dL (6.4-8.2)
[2021-12-31 03:36] LABS: Urine Blood 2+ (Negative); Urine Glucose Negative (Negative); Urine Protein 3+ (Negative); Urine Specific Gravity 1.025 (1.005-1.030); Urine pH 5.5 (5.0-7.0)
--- NOTE | 2021-12-31 03:44 | ER ---
Nurse's Notes [facility] Name: Barb Cortez Age: 46 yrs Sex: Female : 1975 Arrival Date: 12/30/2021 Time: 22:07 Bed 24 Private MD: Diagnosis: UTI/ Urinary tract infection, site not specified;Flank pain Presentation: 12/30 22:08 Chief complaint: Patient states: Left flank pain X 3 days. Coronavirus screen: At this ld1 time, the client does not indicate any symptoms associated with coronavirus-19. Ebola Screen: No symptoms or risks identified at this time. Initial Sepsis Screen: Does the patient meet any 2 criteria? No. Patient's initial sepsis screen is negative. Does the patient have a suspected source of infection? No. Patient's initial sepsis screen is negative. Risk Assessment: Do you want to hurt yourself or someone else? Patient reports no desire to harm self or others. Onset of symptoms was December 30, 2021. 22:08 Method Of Arrival: EMS: [facility] ld1 22:08 Acuity: HARI 3 ld1 Triage Assessment: 22:09 General: Appears in no apparent distress. comfortable, Behavior is calm, cooperative, ld1 appropriate for age. Pain: Complains of pain in left low back. EENT: No signs and/or symptoms were reported regarding the EENT system. Neuro: Level of Consciousness is awake, alert, obeys commands, Oriented to person, place, time, situation. Cardiovascular: Capillary refill < 3 seconds Patient's skin is warm and dry. Respiratory: Airway is patent Respiratory effort is even, unlabored. GI: Abdomen is round non-distended. : Reports pain flank(s). 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 - Social history:: Smoking status: Patient denies any tobacco usage or history of. Patient/guardian denies using alcohol. Screenin/21 01:35 Abuse screen: Denies threats or abuse. Denies injuries from another. Nutritional as6 screening: No deficits noted. Tuberculosis screening: No symptoms or risk factors identified. Fall Risk None identified. Assessment: 01:34 General: Appears uncomfortable, Behavior is calm, cooperative. Pain: Complains of pain as6 in back and left low back. Neuro: Weems Agitation-Sedation Scale (RASS): 0 - Alert and Calm Level of Consciousness is awake, alert, obeys commands, Oriented to person, place, time, situation. Respiratory: Respiratory effort is even, unlabored. GI: Reports nausea. : Reports pressure with urination. 01:39 Musculoskeletal: Amputation of BKA. as6 04:12 Reassessment: Patient is alert, oriented x 3, equal unlabored respirations, skin bb warm/dry/pink. pt verbalized understanding of and agrees to plan of care discharge instructions given pt assisted to exit via wheelchair by this RN. Vital Signs: 12/30 22:08 BP 120 / 90; Pulse 83; Resp 16; Temp 98.3(TE); Pulse Ox 99% on R/A; Weight 113.4 kg; ld1 Height 5 ft. 9 in. (175.26 cm); Pain 8/10; 12/31 00:00 BP 159 / 81; Pulse 91; Resp 18 S; Pulse Ox 98% on R/A; as6 02:00 BP 156 / 79; Pulse 89; Resp 19 S; Pulse Ox 97% on R/A; as6 03:30 BP 166 / 83; Pulse 97; Resp 18 S; Pulse Ox 96% on R/A; as6 04:13 BP 154 / 80; Pulse 89; Resp 16 S; Pulse Ox 96% on R/A; bb 12/30 22:08 Body Mass Index 36.92 (113.40 kg, 175.26 cm) ld1 ED Course: 12/30 22:07 Patient arrived in ED. bp1 22:09 Triage completed. ld1 22:09 Arm band placed on right wrist. ld1 12/31 00:32 Leon Peterson MD is Attending Physician. kdr 00:38 Eliazar Pendleton, MARIA ALEJANDRA is Primary Nurse. as6 01:33 Inserted saline lock: 20 gauge in right antecubital area, using aseptic technique. as6 Blood collected. 01:39 Bed in low position. Call light in reach. Side rails up X2. NIBP on. as6 01:59 CT Stone Protocol In Process Unspecified. EDMS 04:13 No provider procedures requiring assistance completed. IV discontinued, intact, bb bleeding controlled, No redness/swelling at site. Pressure dressing applied. Administered Medications: 01:33 Drug: Ketorolac 15 mg Route: IVP; Site: right antecubital; as6 03:35 Follow up: Response: No adverse reaction as6 01:33 Drug: NS 0.9% 500 ml Route: IV; Rate: bolus; Site: right antecubital; as6 03:35 Follow up: Response: No adverse reaction; IV Status: Completed infusion; IV Intake: as6 500ml 01:33 Drug: Zofran (Ondansetron) 4 mg Route: IVP; Site: right antecubital; as6 03:35 Follow up: Response: No adverse reaction as6 04:00 Drug: Bactrim (trimethoprim-sulfamethoxazole) (160 mg-800 mg (DS) 1 tablet Route: PO; bb 04:12 Follow up: Response: No adverse reaction bb 04:00 Drug: Pyridium (phenazopyridine) 200 mg Route: PO; bb 04:12 Follow up: Response: No adverse reaction bb Medication: 03:35 VIS not applicable for this client. as6 Intake: 03:35 IV: 500ml; Total: 500ml. as6 Outcome: 03:43 Discharge ordered by . kdr 04:13 Discharged to home via wheelchair, with family. bb 04:13 Condition: stable 04:13 Discharge instructions given to patient, Instructed on discharge instructions, follow up and referral plans. medication usage, Demonstrated understanding of instructions, follow-up care, medications, Prescriptions given X 3. 04:14 Patient left the ED. bb Signatures: Dispatcher [employer] EDMS Leon Peterson MD MD kdr Felecia Kay RN RN bb Bhavya Mckeon Lauren, RN RN ld1 [place], [place], RN RN as6
--- NOTE | 2021-12-31 03:44 | EDPHYS ---
Physician Documentation [facility] Name: Barb Cortez Age: 46 yrs Sex: Female : 1975 Arrival Date: 12/30/2021 Time: 22:07 Bed 24 Private MD: ED Physician Leon Peterson HPI: 12/31 21:49 This 46 yrs old Female presents to ER via EMS with complaints of Abdominal Pain. kdr 21:49 The patient presents with She complains of left flank pain for the last 3 days.. Onset: kdr The symptoms/episode began/occurred gradually, 3 day(s) ago. 21:50 The symptoms radiate to the left flank. Associated signs and symptoms: none. The kdr symptoms are described as achy. Severity of pain: At its worst the pain was moderate severe in the emergency department the pain is unchanged. The patient has experienced similar episodes in the past, several times, Is concerned that she may have a kidney infection. She has had similar pain previously. The pain today is not significantly different than other episodes. The patient has not recently seen a physician. [employer]: 12/30 22:09 LMP 12/30/2021 ld1 Historical: - Allergies: 22:09 Aspirin; ld1 22:09 Benadryl; ld1 22:09 Ciprofloxacin; ld1 22:09 IV contrast; ld1 22:09 PENICILLINS; ld1 22:09 Toradol; ld1 22:09 Tramadol HCl; ld1 - PMHx: 22:09 Hypertension; Diabetes - IDDM; Kidney stones; Depression; Migraines; chronic kidney ld1 disease; Hyperlipidemia; Bipolar disorder; - PSHx: 22:09 Amputated below knee; right kidney removal; right; ld1 - Immunization history:: Adult Immunizations up to date, Client reports having NOT received the Covid vaccine. - Social history:: Smoking status: Patient denies any tobacco usage or history of. Patient/guardian denies using alcohol. ROS: 12/31 21:50 Constitutional: Negative for fever, chills, and weight loss, Eyes: Negative for injury, kdr pain, redness, and discharge, ENT: Negative for injury, pain, and discharge, Neck: Negative for injury, pain, and swelling, Cardiovascular: Negative for chest pain, palpitations, and edema, Respiratory: Negative for shortness of breath, cough, wheezing, and pleuritic chest pain, : Negative for injury, bleeding, discharge, and swelling, MS/Extremity: Negative for injury and deformity, Skin: Negative for injury, rash, and discoloration, Neuro: Negative for headache, weakness, numbness, tingling, and seizure activity. Psych: Negative for depression, anxiety, suicide ideation, homicidal ideation, and hallucinations, Allergy/Immunology: Negative for hives, rash, and allergies, Endocrine: Negative for neck swelling, polydipsia, polyuria, polyphagia, and marked weight changes, Hematologic/Lymphatic: Negative for swollen nodes, abnormal bleeding, and unusual bruising. Abdomen/GI: Positive for abdominal pain, nausea and vomiting, of the posterior aspect of left lateral abdomen and anterior aspect of left lateral abdomen, Negative for diarrhea, constipation, abdominal cramps, abdominal distension, black/tarry stool, rectal pain, rectal bleeding. Back: Positive for pain at rest, of the left mid back. Exam: 21:50 Constitutional: This is a well developed, well nourished patient who is awake, alert, kdr and in no acute distress. Head/Face: Normocephalic, atraumatic. Eyes: Pupils equal round and reactive to light, extra-ocular motions intact. Lids and lashes normal. Conjunctiva and sclera are non-icteric and not injected. Cornea within normal limits. Periorbital areas with no swelling, redness, or edema. Neck: Trachea midline, no thyromegaly or masses palpated, and no cervical lymphadenopathy. Supple, full range of motion without nuchal rigidity, or vertebral point tenderness. No Meningismus. Chest/axilla: Normal chest wall appearance and motion. Nontender with no deformity. No lesions are appreciated. Cardiovascular: Regular rate and rhythm with a normal S1 and S2. No gallops, murmurs, or rubs. Normal PMI, no JVD. No pulse deficits. Respiratory: Lungs have equal breath sounds bilaterally, clear to auscultation and percussion. No rales, rhonchi or wheezes noted. No increased work of breathing, no retractions or nasal flaring. Abdomen/GI: Soft, non-tender, with normal bowel sounds. No distension or tympany. No guarding or rebound. No evidence of tenderness throughout. Back: No spinal tenderness. No costovertebral tenderness. Full range of motion. Skin: Warm, dry with normal turgor. Normal color with no rashes, no lesions, and no evidence of cellulitis. MS/ Extremity: Pulses equal, no cyanosis. Neurovascular intact. Full, normal range of motion. Neuro: Awake and alert, GCS 15, oriented to person, place, time, and situation. Cranial nerves II-XII grossly intact. Motor strength 5/5 in all extremities. Sensory grossly intact. Cerebellar exam normal. Normal gait. Psych: Awake, alert, with orientation to person, place and time. Behavior, mood, and affect are within normal limits. Vital Signs: 12/30 22:08 BP 120 / 90; Pulse 83; Resp 16; Temp 98.3(TE); Pulse Ox 99% on R/A; Weight 113.4 kg; ld1 Height 5 ft. 9 in. (175.26 cm); Pain 8/10; 12/31 00:00 BP 159 / 81; Pulse 91; Resp 18 S; Pulse Ox 98% on R/A; as6 02:00 BP 156 / 79; Pulse 89; Resp 19 S; Pulse Ox 97% on R/A; as6 03:30 BP 166 / 83; Pulse 97; Resp 18 S; Pulse Ox 96% on R/A; as6 04:13 BP 154 / 80; Pulse 89; Resp 16 S; Pulse Ox 96% on R/A; bb 12/30 22:08 Body Mass Index 36.92 (113.40 kg, 175.26 cm) ld1 MDM: 03:43 Patient medically screened. kdr 21:50 Data reviewed: vital signs, nurses notes, lab test result(s), radiologic studies. kdr Counseling: I had a detailed discussion with the patient and/or guardian regarding: the historical points, exam findings, and any diagnostic results supporting the discharge/admit diagnosis, lab results, radiology results, the need for outpatient follow up. ED course: Patient had partial relief with her symptoms. I reviewed all the laboratory and x-ray results with the patient she was happy with the care provided the plan for discharge and follow-up.. 12/31 01:03 Order name: CBC with Diff; Complete Time: 02:48 kdr 12/31 01:03 Order name: CMP; Complete Time: 02:48 kdr 12/31 01:03 Order name: Lipase; Complete Time: 02:48 kdr 12/31 01:58 Order name: Manual Differential; Complete Time: 02:48 EDMS 12/31 03:36 Order name: Urine Dipstick-Ancillary; Complete Time: 03:40 EDMS 12/31 03:37 Order name: Urine Dipstick-Ancillary; Complete Time: 03:40 EDMS 12/31 01:03 Order name: IV Saline Lock; Complete Time: 01:33 kdr 12/31 01:03 Order name: Labs collected and sent; Complete Time: 01:33 kdr 12/31 01:14 Order name: CT Stone Protocol kdr Administered Medications: 01:33 Drug: Ketorolac 15 mg Route: IVP; Site: right antecubital; as6 03:35 Follow up: Response: No adverse reaction as6 01:33 Drug: NS 0.9% 500 ml Route: IV; Rate: bolus; Site: right antecubital; as6 03:35 Follow up: Response: No adverse reaction; IV Status: Completed infusion; IV Intake: as6 500ml 01:33 Drug: Zofran (Ondansetron) 4 mg Route: IVP; Site: right antecubital; as6 03:35 Follow up: Response: No adverse reaction as6 04:00 Drug: Bactrim (trimethoprim-sulfamethoxazole) (160 mg-800 mg (DS) 1 tablet Route: PO; bb 04:12 Follow up: Response: No adverse reaction bb 04:00 Drug: Pyridium (phenazopyridine) 200 mg Route: PO; bb 04:12 Follow up: Response: No adverse reaction bb Disposition Summary: 12/31/21 03:43 Discharge Ordered Location: Home kdr Problem: new kdr Symptoms: have improved kdr Condition: Stable kdr Diagnosis - UTI/ Urinary tract infection, site not specified kdr - Flank pain kdr Followup: kdr - With: Private Physician - When: 2 - 3 days - Reason: If symptoms return, Further diagnostic work-up, Recheck today's complaints, Continuance of care, Re-evaluation by your physician Discharge Instructions: - Discharge Summary Sheet kdr - Dysuria kdr - Urinary Tract Infection, Adult, [id number] kdr - Flank Pain, Adult, [id number] kdr Forms: - Medication Reconciliation Form kdr - Thank You Letter kdr - Antibiotic Education kdr Prescriptions: - ketorolac 10 mg Oral tablet - take 1 tablet by ORAL route every 4-6 hours As needed not to exceed 40 mg in kdr 24hrs; 12 tablet; Refills: 0, Product Selection Permitted - Pyridium 200 mg Oral Tablet - take 1 tablet by ORAL route every 8 hours for 3 days; 9 tablet; Refills: 0, kdr Product Selection Permitted - Bactrim DS 800-160 mg Oral Tablet - take 1 tablet by ORAL route every 12 hours for 10 days; 20 tablet; Refills: 0, kdr Product Selection Permitted Signatures: Dispatcher [employer] Leon Burgos MD MD kdr Felecia Kay RN RN bb Zee Hubbard RN RN ld1 Eliazar Pendleton RN RN as6
[2021-12-31] MEDS ORDERED: PHENAZOPYRIDINE 100MG TAB PO ONE (03:53)
[2021-12-31] MEDS ORDERED: SMZ./TMP. 800/160 MG TABLET ONE (03:54)
[2021-12-31 04:29] VITALS: O2SAT 96
[2021-12-31 04:31] VITALS: TEMP 98.3
[2021-12-31 04:33] VITALS: BP 154/80
--- NOTE | 2021-12-31 13:41 | RAD REPORT ---
EXAM DESCRIPTION: CT - Stone Protocol - 12/31/2021 6:39 am CLINICAL HISTORY: 46 years, Female, Flank pain, kidney stone suspected COMPARISON: 10/28/2021 TECHNIQUE: Multiple transaxial tomograms of the abdomen and pelvis were performed from the lung base s to the symphysis pubis 3 mm slice thickness at 3 mm interval reconstruction, without administration of IV and oral contrast. Multiplanar reformats in the sagittal and coronal plane were generated and reviewed. This exam was performed according to our departmental dose-optimization protocol, which includes auto mated exposure control, adjustment of the mA and/or kV according to patient size and/or use of iterat yari reconstruction technique. FINDINGS: The lack of IV and oral contrast limits evaluation of solid organs, subtle lesions cannot be excluded. The lung bases demonstrate to be clear. Mild elevation of the right hemidiaphragm. Grossly the unopacified liver, gallbladder, pancreas, spleen and adrenal glands demonstrate to be wit hin normal limits, no significant focal lesions were identified. There is status post right nephrectomy. The left kidney demonstrate to be unremarkable. No focal ma sses were demonstrated. Grossly the unopacified stomach, small bowel and large bowel demonstrate to be within normal limits. There is no evidence for bowel dilatation/or free air. The appendix is normal. The urinary bladder demonstrate to be within normal limits. The uterus demonstrate the presence of th e soft tissue structure within the endometrial cavity corresponding to a intrauterine device. There a re no adnexal masses. The aorta demonstrate atheromatous plaque. There is no retroperitoneal lympha denopathy. There is no evidence for ascites. The rest of the soft tissue demonstrate to be grossly unremarkable. There is minimal haziness within the subcutaneous tissue lower abdomen/pelvis perhaps s uggesting abdominoplasty and/or liposuction. IMPRESSION: No evidence for renal or ureteral calculi. Status post right nephrectomy. Intrauterine device in place. Electronically signed by: Shiraz Jones MD 12/31/2021 2:19 AM CDT Due to temporary technical issues with the PACS/Fluency reporting system, reports are being signed by the in house radiologists without. review as a courtesy to insure prompt reporting. The interpreting radiologist is fully responsible for the content of the report
== END 2021-12-31 04:14 | disposition home or self-care (01) ==
LOC: ER 22:05
DX: N39.0 Urinary tract infection, site not specified (principal); E11.22 Type 2 diabetes mellitus with diabetic chronic kidney disease; I12.9 Hypertensive chronic kidney disease with stage 1 through stage 4 chronic kidney disease, or unspecified chronic kidney disease; N18.9 Chronic kidney disease, unspecified; Z88.0 Allergy status to penicillin; Z88.1 Allergy status to other antibiotic agents; Z88.5 Allergy status to narcotic agent; Z88.6 Allergy status to analgesic agent; Z88.8 Allergy status to other drugs, medicaments and biological substances; Z91.041 Radiographic dye allergy status
CPT/HCPCS: 85025; 36415; 81003; 83690; 80053; 76377; 74176; J7040; J2405; 96361; 96374; 96375; 99284

== ENCOUNTER 2022-08-20 15:04 | Emergency (ER) | payer OTHER ==
--- OUTSIDE RECORDS SUMMARY | 2022-08-20 15:19 | XMS REPORT | Continuity of Care Document ---
:1975 Author Organization [facility] t Address [address] [place] [address] Care Team Providers Name Role Phone KWADWO MÉNDEZ Primary Care Physician Unavailable KWADWO MÉNDEZ Attending Clinician Unavailable Kwadwo Méndez MD Attending Clinician Doctor Unassigned, Gorman Attending Clinician Unavailable King SERGIO MD, James C Attending Clinician Unknown, Attending Attending Clinician Unavailable LEX DAVE III Attending Clinician Unavailable Cindy Hurst MD Attending Clinician DRISS SEGOVIA Attending Clinician Unavailable DRISS SEGOVIA Attending Clinician Unavailable Pob, [facility] Attending Clinician Unavailable LUCRETIA LIND Attending Clinician Unavailable LUCRETIA LIND Attending Clinician Unavailable SUNSHINE GUNDERSON Attending Clinician Unavailable JANEE SOTELO Attending Clinician Unavailable CINDY HURST Attending Clinician Unavailable CHEVY RODRÍGUEZ Attending Clinician Unavailable Chevy Rodríguez MD Attending Clinician JUAN RAMON VELA Attending Clinician Unavailable DAYTON HAYES Attending Clinician Unavailable Sunshine Gunderson MD Attending Clinician ERMA WHITNEY Attending Clinician Unavailable Erma Swanson Attending Clinician Verónica Garcia MD Attending Clinician [phone] JESSICA BRITT Attending Clinician Unavailable SHALONDA BURGESS Attending Clinician Unavailable KARINA TEJEDA Attending Clinician Unavailable YVES ESTEVEZ Attending Clinician Unavailable JESSICA BRANTLEY Attending Clinician Unavailable MARIYA PEREZ Attending Clinician Unavailable Burak Rose MD Attending Clinician Mariya Perez MD Attending Clinician JAY WRIGHT Attending Clinician Unavailable ANALIA MUÑOZ Attending Clinician Unavailable CHEVY RODRÍGUEZ Admitting Clinician Unavailable BLAZE ABRAMS Admitting Clinician Unavailable Payers Payer Name Policy Type Policy Number Effective Date Expiration Date Claude jacobs [facility] [id number] 2018 00:00:00 PLUS Problems Condition Condition Condition Status Onset Resolution Last Treating Co mments Source Name Details Category Date Date Treatment Clinician Date Sepsis Sepsis Disease Active 2021-07 Univers secondary secondary 0-21 ity of to UTI to UTI 00:00: [address] Recurrent Recurrent Disease Active 2021-07 Uni vers falls falls 0-21 ity of 00:00: [address] Influenza Influenza Disease Active 2021-07 Uni vers vaccine vaccine 0-21 ity of needed needed 00:00: [address] Hydronephr Hydronephr Disease Active 2021-07 U nivers osis of osis of 0-21 ity of left left 00:00: [place] kidney kidney [facility] Hyperkalem Hyperkalem Disease Active 2021-07 U mavis ia ia 0-06 ity of 00:00: [address] ERICKA (acute ERICKA (acute Disease Active 2021-07 U nivers kidney kidney 0-06 ity of injury) injury) 00:00: [address] Pyelonephr Pyelonephr Disease Active U nivers itis of itis of 4-29 ity of left left 00:00: [place] kidney kidney [address] [place] [address] Hospital Disease Active Unive rs discharge discharge 4-29 ity of follow-up [place]up [place] [facility] [place] Elevated Elevated Disease Active Unive rs serum serum 4-29 [place]y [place] creatinine [place] Dehydratio Dehydratio Disease Active U nivers n n 1-27 ity of 00:00: [place] [facility] Nicotine Nicotine Disease Active Unive rs dependence dependence 1-27 it y of with with 00:00: [place] current current 00 Medical use use Branch Nicotine Nicotine Disease Active Unive rs dependence dependence 1-27 it y of with with 00:00: [place] current current 00 Medical use use Branch Contusion Contusion Disease Active 2020-07 Uni vers of left of left 0-20 ity of lower lower 00:00: [place] extremity, extremity, 00 Me dical sequela sequela Branch Pre-operat Pre-operat Disease Active 2020-07 U nivers yari yari 0-20 ity of clearance clearance 00:00[place] [facility] CKD stage CKD stage Disease Active 2020-07 Uni vers 3 due to 3 due to 0-20 ity of type 2 type 2 00:00: [place] diabetes diabetes 00 Medica l mellitus mellitus Branch Need for Need for Disease Active 2020-07 Unive rs hepatitis hepatitis 0-20 ity of C C 00:00: [place] screening screening 00 Medi donald test test Branch Dyslipidem Dyslipidem Disease Active 2020-07 U nivers ia ia 0-20 ity of 00:00: [place] [facility] Essential Essential Disease Active 2020-07 Uni vers hypertensi hypertensi 0-20 it y of on on 00:00: [place] 00 Medical Branch Fall, Fall, Disease Active 2020-07 Univers sequela sequela 0-20 ity of 00:00: [place] [facility] Decay, Decay, Disease Active 2020-07 Univers teeth teeth 0-20 ity of 00:00: [place] [facility] Bipolar Bipolar Disease Active Univers disorder disorder 6-04 ity of with with 00:00: [place] severe severe 00 Medical bahman bahman Branch Wheelchair Wheelchair Disease Active U nivers dependence dependence 3-02 it y of 00:00: [place] 00 Medical Branch 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 pain 3-02 ity of 00:00: [place] [facility] Diabetic Diabetic Disease Active Unive rs polyneurop polyneurop 3-02 it y of athy athy 00:00: [place] associated associated 00 Me dical with type with type Bran ch 2 diabetes 2 diabetes mellitus mellitus Wheelchair Wheelchair Disease Active U nivers dependence dependence 3-02 it y of 00:00: [place] [facility] Anxiety Anxiety Disease Active Univers [...] exam eye exam 1-21 ity of 00:00: [place] 00 Medical Branch Morbid Morbid Disease Active Univers obesity obesity 1-21 ity of 00:00: [place] [facility] Morbid Morbid Disease Active Univers obesity obesity 1-21 ity of with body with body 00:00: [place] mass index mass index 00 Me dical (BMI) of (BMI) of Branch 40.0 or 40.0 or higher higher Below-knee Below-knee Disease Active U nivers amputation amputation 9-15 it y of of right of right 00:00: [place] lower lower 00 Medical extremity extremity Bran ch Hypotensio Hypotensio Disease Active U nivers n, n, 8-18 ity of unspecifie unspecifie 00:[place] 00 Medical hypotensio hypotensio Br anch n type n type Restless Restless Disease Active Unive rs leg leg 8-14 ity of 00:00: [place] [facility] Suspected Suspected Disease Active Uni vers COVID-19 COVID-19 4-23 ity of virus virus 00:00: [place] infection infection 00 Medi donald Branch Hx of BKA, Hx of BKA, Disease Active U nivers right right 4-06 ity of 00:00: Medical Branch Migraine Migraine Disease Active Unive [...] bipolar 2-13 ity of disorder disorder 00:00: [place] [facility] Lumbar Lumbar Disease Active Univers herniated herniated 2-13 ity of disc disc 00:00: Medical Branch Type 2 Type 2 Disease Active Univers diabetes diabetes 2-13 ity of mellitus mellitus 00:00: [place] with with 00 Medical hyperglyce hyperglyce Br anch thanh, with thanh, with long-term long-term current current use of use of insulin insulin Left flank Left flank Disease Active Overview : Univers pain pain 02 Formattin ity of 00:00: g of this note Medical might be Branch different from the original. 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 Allergies, Adverse Reactions, Alerts Allergy Allergy Status Severity Reaction(s) Onset Inactive Treating Comm ents Source Name Type Date Date Clinician DIPHENHY DRUG Active Hives Univers DRAMINE INGREDI 7-16 ity of HCL 00:00: [place] [facility] Diphenhy Propensi Active Hives Univer [...] Univers INGREDI 8-27 ity of 00:00: [place] 00 Medical Branch Tramadol Propensi Active Nausea drowsines Uni vers ty to and/or 8-27 s ity of adverse Vomiting 00:00: [place] reaction 00 Medical s Branch CIPROFLO DRUG Active Hives Univers XACIN INGREDI 04-11 ity of 00:00: [place] 00 Medical Branch PENICILL DRUG Active Anaphylaxis 2016- Uni vers IN INGREDI 04-11 ity of 00:00: [place] 00 Medical Branch Ciproflo Propensi Active Hives Univer s xacin ty to 04-11 ity of adverse 00:00: [place] reaction 00 Medical s Branch Penicill Propensi Active Anaphylaxis Pt U nivers in ty to 04-11 states, ity of adverse 00:00: "I'll [place] reaction flatline" Medic al s Branch Iodine Propensi Active Anaphylaxis Uni vers And ty to 07-14 ity of Iodide adverse 00:00: [place] Containi reaction 00 Medica l ng s Branch Products ASPIRIN DRUG Active Hives Univers INGREDI 07-14 ity of 00:00: [place] 00 Medical Branch IODINE Drug Active Anaphylaxis Unive rs AND Class - ity of IODIDE 00:00: [place] CONTAINI 00 Medical NG Branch PRODUCTS Aspirin Propensi Active Hives Univers ty to 07-14 ity of adverse 00:00: [place] reaction 00 Medical s Branch Social History Social Habit Start Date Stop Date Quantity Comments Source History of tobacco Cigarette Smoker University of use [facility] Exposure to 2022-06-30 2022-07-10 Not sure [facility] SARS-CoV-2 (event) 00:00:00 14:45:00 [facility] Alcohol intake 2022-05-04 2022-05-04 Ex-drinker University of 00:00:00 00:00:00 (finding) [facility] Cigarettes smoked 2020-08-02 2020-08-02 Univers ity of current (pack per 00:00:00 00:00:00 ) - Reported Branch Cigarette 2020-08-02 2020-08-02 University of pack-years 00:00:00 00:00:00 [facility] Tobacco use and 2020-08-02 2020-08-02 Smokeless Universit y of exposure 00:00:00 00:00:[address] [facility] [facility] [birth year] Universit y of 00:00:00 00:00:00 [facility] Smoking Status Start Date Stop Date Source Smokes tobacco daily 2020-08-02 00:00:00 Univers ity of [facility] Medications Ordered Filled Start Stop Current Ordering Indication Dosage Frequency Signature Comments Components Source Medication Medication Date Date Medication? Clinician (SIG) Name Name PRAMOD Rowell Yes [id number] TAKE 1 Univers mg tablet 2-02 TABLET BY ity o f 00:00: MOUTH [place] 00 EVERY DAY Medical Branch butalbital- Yes [id number] TAKE 1 Univers acetaminoph 1-12 CAPSULE BY it y of en-caff 00:00: MOUTH [place] 50-325-40 00 EVERY 8 Medical mg tablet HOURS Branch NEEDED FOR MIGRAINE butalbital- 0 Yes [id number] TAKE 1 Univers acetaminoph 1-12 CAPSULE BY it y of en-caff 00:00: MOUTH [place] 50-325-40 00 EVERY 8 Medical mg tablet HOURS Branch NEEDED FOR MIGRAINE butalbital- Yes [id number] TAKE 1 Univers acetaminoph 1-12 CAPSULE BY it y of en-caff 00:00: MOUTH [place] 50-325-40 00 EVERY 8 Medical mg tablet HOURS Branch NEEDED FOR MIGRAINE Methylpredn 2021-07- Yes [id number] 4mg Take 1 Univers isolone 4 2-29 01-04 tablet by ity of mg tablet 00:00: 05:59 mouth [place] 00 :00 every 12 Medical (twelve) Branch hours for 5 days. Methylpredn 2021-07- Yes [id number] 4mg Take 1 Univers isolone 4 2-29 01-04 tablet by ity of mg tablet 00:00: 05:59 mouth [place] 00 :00 every 12 Medical (twelve) Branch hours for 5 days. METFORMIN 2021-07 Yes [id number] TAKE 1 Un ann marie 1,000 mg 2-08 TABLET BY ity of tablet 00:00: MOUTH [place] 00 TWICE A Medical DAY WITH Branch MEALS NOVOLOG MIX 2021-07 Yes [id number] INJECT 30 Univers 70-30 100 2-08 UNITS ity of unit/mL 00:00: UNDER THE [place] (70-30) 00 SKIN 2 Medical injection (TWO) Branch TIMES DAILY WITH MEALS. E11.65 OMEPRAZOLE 2021-07 Yes [id number] TAKE 1 Univers 40 mg 2-08 CAPSULE BY ity of capsule 00:00: MOUTH [place] 00 EVERY DAY Medical Branch METFORMIN 2021-07 Yes [id number] TAKE 1 Un ann marie 1,000 mg 2-08 TABLET BY ity of tablet 00:00: MOUTH [place] 00 TWICE A Medical DAY WITH Branch MEALS NOVOLOG MIX 2021-07 Yes [id number] INJECT 30 Univers 70-30 100 2-08 UNITS ity of unit/mL 00:00: UNDER THE [place] (70-30) 00 SKIN 2 Medical injection (TWO) Branch TIMES DAILY WITH MEALS. E11.65 OMEPRAZOLE 2021-07 Yes [id number] TAKE 1 Univers 40 mg 2-08 CAPSULE BY ity of capsule 00:00: MOUTH [place] 00 EVERY DAY Medical Branch METFORMIN 2021-07 Yes [id number] TAKE 1 Un ann marie 1,000 mg 2-08 TABLET BY ity of tablet 00:00: MOUTH 00 TWICE A Medical DAY WITH Branch MEALS NOVOLOG MIX 2021-07 Yes [id number] INJECT 30 Univers 70-30 100 2-08 UNITS ity of unit/mL 00:00: UNDER THE [place] (70-30) 00 SKIN 2 Medical injection (TWO) Branch TIMES DAILY WITH MEALS. E11.65 OMEPRAZOLE 2021-07 Yes [id number] TAKE 1 Univers 40 mg 2-08 CAPSULE BY ity of capsule 00:00: MOUTH [place] 00 EVERY DAY Medical Branch METFORMIN 2021-07 Yes [id number] TAKE 1 Un ann marie 1,000 mg 2-08 TABLET BY ity of tablet 00:00: MOUTH [place] 00 TWICE A Medical DAY WITH Branch MEALS NOVOLOG MIX 2021-07 Yes [id number] INJECT 30 Univers 70-30 100 2-08 UNITS ity of unit/mL 00:00: UNDER THE [place] (70-30) 00 SKIN 2 Medical injection (TWO) Branch TIMES DAILY WITH MEALS. E11.65 OMEPRAZOLE 2021-07 Yes [id number] TAKE 1 Univers 40 mg 2-08 CAPSULE BY ity of capsule 00:00: MOUTH [place] 00 EVERY DAY Medical Branch METFORMIN 2021-07 Yes [id number] TAKE 1 Un ann marie 1,000 mg 2-08 TABLET BY ity of tablet 00:00: MOUTH [place] 00 TWICE A Medical DAY WITH Branch MEALS NOVOLOG MIX 2021-07 Yes [id number] INJECT 30 Univers 70-30 100 2-08 UNITS ity of unit/mL 00:00: UNDER THE [place] (70-30) 00 SKIN 2 Medical injection (TWO) Branch TIMES DAILY WITH MEALS. E11.65 OMEPRAZOLE 2021-07 Yes [id number] TAKE 1 Univers 40 mg 2-08 CAPSULE BY ity of capsule 00:00: MOUTH [place] 00 EVERY DAY Medical Branch METFORMIN 2021-07 Yes [id number] TAKE 1 Un ann marie 1,000 mg 2-08 TABLET BY ity of tablet 00:00: MOUTH [place] 00 TWICE A Medical DAY WITH Branch MEALS NOVOLOG MIX 2021-07 Yes [id number] INJECT 30 Univers 70-30 100 2-08 UNITS ity of unit/mL 00:00: UNDER THE [place] (-) 00 SKIN 2 Medical injection (TWO) Branch TIMES DAILY WITH MEALS. E11.65 OMEPRAZOLE 2021-07 Yes [id number] TAKE 1 Univers 40 mg 2-08 CAPSULE BY ity of capsule 00:00: MOUTH [place] EVERY DAY Medical Branch METFORMIN 2021-07 Yes [id number] TAKE 1 Un ann marie 1,000 mg 2-08 TABLET BY ity of tablet 00:00: MOUTH [place] 00 TWICE A Medical DAY WITH Branch MEALS NOVOLOG MIX 2021-07 Yes [id number] INJECT 30 Univers 70-30 100 2-08 UNITS ity of unit/mL 00:00: UNDER THE [place] (-) 00 SKIN 2 Medical injection (TWO) Branch TIMES DAILY WITH MEALS. E11.65 OMEPRAZOLE 2021-07 Yes [id number] TAKE 1 Univers 40 mg 2-08 CAPSULE BY ity of capsule 00:00: MOUTH [place] 00 EVERY DAY Medical Branch METFORMIN 2021-07 Yes [id number] TAKE 1 Un ann marie 1,000 mg 2-08 TABLET BY ity of tablet 00:00: MOUTH [place] 00 TWICE A Medical DAY WITH Branch MEALS NOVOLOG MIX 2021-07 Yes [id number] INJECT 30 Univers 70-30 100 2-08 UNITS ity of unit/mL 00:00: UNDER THE [place] (70-30) 00 SKIN 2 Medical injection (TWO) Branch TIMES DAILY WITH MEALS. E11.65 OMEPRAZOLE 2021-07 Yes [id number] TAKE 1 Univers 40 mg 2-08 CAPSULE BY ity of capsule 00:00: MOUTH [place] 00 EVERY DAY Medical Branch METFORMIN 2021-07 Yes [id number] TAKE 1 Un ann marie 1,000 mg 2-08 TABLET BY ity of tablet 00:00: MOUTH [place] 00 TWICE A Medical DAY WITH Branch MEALS NOVOLOG MIX 2021-07 Yes [id number] INJECT 30 Univers 70-30 100 2-08 UNITS ity of unit/mL 00:00: UNDER THE [place] (70-30) 00 SKIN 2 Medical injection (TWO) Branch TIMES DAILY WITH MEALS. E11.65 OMEPRAZOLE 2021-07 Yes [id number] TAKE 1 Univers 40 mg 2-08 CAPSULE BY ity of capsule 00:00: MOUTH [place] 00 EVERY DAY Medical Branch METFORMIN 2021-07 Yes [id number] TAKE 1 Un ann marie 1,000 mg 2-08 TABLET BY ity of tablet 00:00: MOUTH [place] 00 TWICE A Medical DAY WITH Branch MEALS NOVOLOG MIX 2021-07 Yes [id number] INJECT 30 Univers 70-30 100 2-08 UNITS ity of unit/mL 00:00: UNDER THE [place] (70-30) 00 SKIN 2 Medical injection (TWO) Branch TIMES DAILY WITH MEALS. E11.65 OMEPRAZOLE 2021-07 Yes [id number] TAKE 1 Univers 40 mg 2-08 CAPSULE BY ity of capsule 00:00: MOUTH [place] 00 EVERY DAY Medical Branch AMITRIPTYLI 2021-07 Yes [id number] TAKE 1 Univers NE 100 mg 1-26 06 TABLET BY ity o f tablet 00:00: MOUTH [place] 00 EVERY DAY Medical AT BEDTIME Branch AMITRIPTYLI 2021-07 Yes [id number] TAKE 1 Univers NE 100 mg 1-26 06 TABLET BY ity o f tablet 00:00: MOUTH [place] 00 EVERY DAY Medical AT BEDTIME Branch AMITRIPTYLI 2021-07 Yes [id number] TAKE 1 Univers NE 100 mg 1-26 06 TABLET BY ity o f tablet 00:00: MOUTH [place] 00 EVERY DAY Medical AT BEDTIME Branch AMITRIPTYLI 2021-07 Yes [id number] TAKE 1 Univers NE 100 mg 1-26 06 TABLET BY ity o f tablet 00:00: MOUTH [place] 00 EVERY DAY Medical AT BEDTIME Branch AMITRIPTYLI 2021-07 Yes [id number] TAKE 1 Univers NE 100 mg 1-26 06 TABLET BY ity o f tablet 00:00: MOUTH [place] 00 EVERY DAY Medical AT BEDTIME Branch AMITRIPTYLI 2021-07 Yes [id number] TAKE 1 Univers NE 100 mg 1-26 06 TABLET BY ity o f tablet 00:00: MOUTH [place] 00 EVERY DAY Medical AT [facility] 2021-07 Yes [id number] TAKE 1 Univers NE 100 mg 1-26 06 TABLET BY ity o f tablet 00:00: MOUTH [place] 00 EVERY DAY Medical AT [facility] 2021-07 Yes [id number] TAKE 1 Univers NE 100 mg 1-26 06 TABLET BY ity o f tablet 00:00: MOUTH [place] 00 EVERY DAY Medical AT [facility] 2021-07 Yes [id number] TAKE 1 Univers NE 100 mg 1-26 06 TABLET BY ity o f tablet 00:00: MOUTH [place] 00 EVERY DAY Medical AT [facility] 2021-07 Yes [id number] TAKE 1 Univers NE 100 mg 1-26 06 TABLET BY ity o f tablet 00:00: MOUTH [place] 00 EVERY DAY Medical AT [facility] 2021-07 Yes [id number] TAKE 1 Univers NE 100 mg 1-26 06 TABLET BY ity o f tablet 00:00: MOUTH [place] 00 EVERY DAY Medical AT [facility] 2021-07 Yes [id number] TAKE 1 Univers NE 100 mg 1-26 06 TABLET BY ity o f tablet 00:00: MOUTH [place] 00 EVERY DAY Medical AT [facility] 2021-07 Yes [id number] TAKE 1 Univers NE 100 mg 1-26 06 TABLET BY ity o f tablet 00:00: MOUTH [place] 00 EVERY DAY Medical AT [facility] cefTRIAXone 2021-07- No [id number] 500mg Univers (ROCEPHIN) 0-02 05- ity of injection 21:15: 20:58 [place] 500 mg 00 :00 [facility] cefTRIAXone 2021-07- No [id number] 500mg 500 mg, Univers (ROCEPHIN) 0-02 05- Intramuscu it y of injection 21:15: 20:58 [place], [place]CE, [place] 500 mg 00 :00 1 dose, On Medical Fri Branch 05/02/22 at 1615, TRISTAN
Re ason for Anti-Infec tive: Documented Infection< br>Documen perla Infection Site: Urine
D uration of Therapy: Other (see Comments) cefTRIAXone 2021-07- No [id number] 500mg Univers (ROCEPHIN) 0-21 10-21 ity of injection 21:15: 20:58 [place] 500 mg 00 :00 Medical Branch cefTRIAXone 2021-07- No [id number] 500mg 500 mg, Univers (ROCEPHIN) 0-21 - Intramuscu it y of injection 21:15: 20:58 [place]CE, [place] 500 mg 00 :00 1 dose, On Medical Fri Branch 05/02/22 at 1615, TRISTAN
Re ason for Anti-Infec tive: Documented Infection< br>Documen perla Infection Site: Urine
D uration of Therapy: Other (see Comments) amoxicillin 2021-07 Yes [id number] 1{tbl} Take 1 Univers -clavulanat 0-21 tablet by ity of e 00:00: mouth in [place] (AUGMENTIN) 00 the Medical 875-125 mg morning Branch per tablet and 1 tablet in the evening. amoxicillin 2021-07 Yes [id number] 1{tbl} Take 1 Univers -clavulanat 0-21 tablet by ity of e 00:00: mouth in [place] (AUGMENTIN) 00 the Medical 875-125 mg morning Branch per tablet and 1 tablet in the evening. amoxicillin 2021-07 Yes [id number] 1{tbl} Take 1 Univers -clavulanat 0-21 tablet by ity of e 00:00: mouth in [place] (AUGMENTIN) 00 the Medical 875-125 mg morning Branch per tablet and 1 tablet in the evening. amoxicillin 2021-07 Yes [id number] 1{tbl} Take 1 Univers -clavulanat 0-21 tablet by ity of e 00:00: mouth in [place] (AUGMENTIN) 00 the Medical 875-125 mg morning Branch per tablet and 1 tablet in the evening. amoxicillin 2021-07 Yes [id number] 1{tbl} Take 1 Univers -clavulanat 0-21 tablet by ity of e 00:00: mouth in [place] (AUGMENTIN) 00 the Medical 875-125 mg morning Branch per tablet and 1 tablet in the evening. amoxicillin 2021-07 Yes [id number] 1{tbl} Take 1 Univers -clavulanat 0-21 tablet by ity of e 00:00: mouth in [place] (AUGMENTIN) 00 the Medical 875-125 mg morning Branch per tablet and 1 tablet in the evening. amoxicillin 2021-07 Yes [id number] 1{tbl} Take 1 Univers -clavulanat 0-21 tablet by ity of e 00:00: mouth in [place] (AUGMENTIN) 00 the Medical 875-125 mg morning Branch per tablet and 1 tablet in the evening. amoxicillin 2021-07 Yes [id number] 1{tbl} Take 1 Univers -clavulanat 0-21 tablet by ity of e 00:00: mouth in [place] (AUGMENTIN) 00 the Medical 875-125 mg morning Branch per tablet and 1 tablet in the evening. amoxicillin 2021-07 Yes [id number] 1{tbl} Take 1 Univers -clavulanat 0-21 tablet by ity of e 00:00: mouth in [place] (AUGMENTIN) 00 the Medical 875-125 mg morning Branch per tablet and 1 tablet in the evening. amoxicillin 2021-07 Yes [id number] 1{tbl} Take 1 Univers -clavulanat 0-21 tablet by ity of e 00:00: mouth in [place] (AUGMENTIN) 00 the Medical 875-125 mg morning Branch per tablet and 1 tablet in the evening. amoxicillin 2021-07 Yes [id number] 1{tbl} Take 1 Univers -clavulanat 0-21 tablet by ity of e 00:00: mouth in [place] (AUGMENTIN) 00 the Medical 875-125 mg morning Branch per tablet and 1 tablet in the evening. amoxicillin 2021-07 Yes [id number] 1{tbl} Take 1 Univers -clavulanat 0-21 tablet by ity of e 00:00: mouth in [place] (AUGMENTIN) 00 the Medical 875-125 mg morning Branch per tablet and 1 tablet in the evening. amoxicillin 2021-07 Yes [id number] 1{tbl} Take 1 Univers -clavulanat 0-21 tablet by ity of e 00:00: mouth in [place] (AUGMENTIN) 00 the Medical 875-125 mg morning Branch per tablet and 1 tablet in the evening. amoxicillin 2021-07 Yes [id number] 1{tbl} Take 1 Univers -clavulanat 0-21 tablet by ity of e 00:00: mouth in [place] (AUGMENTIN) 00 the Medical 875-125 mg morning Branch per tablet and 1 tablet in the evening. amoxicillin 2021-07 Yes [id number] 1{tbl} Take 1 Univers -clavulanat 0-21 tablet by ity of e 00:00: mouth in [place] (AUGMENTIN) 00 the Medical 875-125 mg morning Branch per tablet and 1 tablet in the evening. amoxicillin 2021-07 Yes [id number] 1{tbl} Take 1 Univers -clavulanat 0-21 tablet by ity of e 00:00: mouth in [place] (AUGMENTIN) 00 the Medical 875-125 mg morning Branch per tablet and 1 tablet in the evening. amoxicillin 2021-07 Yes [id number] 1{tbl} Take 1 Univers -clavulanat 0-21 tablet by ity of e 00:00: mouth in [place] (AUGMENTIN) 00 the Medical 875-125 mg morning Branch per tablet and 1 tablet in the evening. amoxicillin 2021-07 Yes [id number] 1{tbl} Take 1 Univers -clavulanat 0-21 tablet by ity of e 00:00: mouth in [place] (AUGMENTIN) 00 the Medical 875-125 mg morning Branch per tablet and 1 tablet in the evening. amoxicillin 2021-07 Yes [id number] 1{tbl} Take 1 Univers -clavulanat 0-21 tablet by ity of e 00:00: mouth in [place] (AUGMENTIN) 00 the Medical 875-125 mg morning Branch per tablet and 1 tablet in the evening. amoxicillin 2021-07 Yes [id number] 1{tbl} Take 1 Univers -clavulanat 0-21 tablet by ity of e 00:00: mouth in [place] (AUGMENTIN) 00 the Medical 875-125 mg morning Branch per tablet and 1 tablet in the evening. amoxicillin 2021-07 Yes [id number] 1{tbl} Take 1 Univers -clavulanat 0-21 tablet by ity of e 00:00: mouth in [place] (AUGMENTIN) 00 the Medical 875-125 mg morning Branch per tablet and 1 tablet in the evening. amoxicillin 2021-07 Yes [id number] 1{tbl} Take 1 Univers -clavulanat 0-21 tablet by ity of e 00:00: mouth in [place] (AUGMENTIN) 00 the Medical 875-125 mg morning Branch per tablet and 1 tablet in the evening. METFORMIN 2021-07 Yes [id number] TAKE ONE Univers 1,000 mg 0-18 (1) TABLET ity o f tablet 00:00: BY MOUTH [place] 00 TWICE Medical DAILY WITH Branch MEALS METFORMIN 2021-07 Yes [id number] TAKE ONE Univers 1,000 mg 0-18 (1) TABLET ity o f tablet 00:00: BY MOUTH [place] 00 TWICE Medical DAILY WITH Branch MEALS METFORMIN 2021-07 Yes [id number] TAKE ONE Univers 1,000 mg 0-18 (1) TABLET ity o f tablet 00:00: BY MOUTH [place] 00 TWICE Medical DAILY WITH Branch MEALS METFORMIN 2021-07 Yes [id number] TAKE ONE Univers 1,000 mg 0-18 (1) TABLET ity o f tablet 00:00: BY MOUTH [place] 00 TWICE Medical DAILY WITH Branch MEALS METFORMIN 2021-07 Yes [id number] TAKE ONE Univers 1,000 mg 0-18 (1) TABLET ity o f tablet 00:00: BY MOUTH [place] TWICE Medical DAILY WITH Branch MEALS METFORMIN 2021-07 Yes [id number] TAKE ONE Univers 1,000 mg 0-18 (1) TABLET ity o f tablet 00:00: BY MOUTH [place] 00 TWICE Medical DAILY WITH Branch MEALS METFORMIN 2021-07 Yes [id number] TAKE ONE Univers 1,000 mg 0-18 (1) TABLET [facility] o f tablet 00:00: BY MOUTH [place] 00 TWICE Medical DAILY WITH Branch MEALS METFORMIN 2021-07 Yes [id number] TAKE ONE [facility] 1,000 mg 0-18 (1) TABLET [facility] o [facility] tablet 00:00: BY MOUTH [place] 00 TWICE Medical DAILY WITH Branch MEALS METFORMIN 2021-07 Yes [id number] TAKE ONE [facility] 1,000 mg 0-18 (1) TABLET [facility] o f tablet 00:00: BY MOUTH [place] 00 TWICE Medical DAILY WITH Branch MEALS METFORMIN 2021-07 Yes [id number] TAKE ONE [facility] 1,000 mg 0-18 (1) TABLET [facility] o f tablet 00:00: BY MOUTH [place] 00 TWICE Medical DAILY WITH Branch MEALS METFORMIN 2021-07 Yes [id number] TAKE ONE [facility] 1,000 mg 0-18 (1) TABLET [facility] o f tablet 00:00: BY MOUTH [place] 00 TWICE Medical DAILY WITH Branch MEALS METFORMIN 2021-07 Yes [id number] TAKE ONE [facility] 1,000 mg 0-18 (1) TABLET [facility] o f tablet 00:00: BY MOUTH [place] 00 TWICE Medical DAILY WITH Branch MEALS METFORMIN 2021-07 Yes [id number] TAKE ONE [facility] 1,000 mg 0-18 (1) TABLET [facility] o [facility] tablet 00:00: BY MOUTH [place] 00 TWICE Medical DAILY WITH Branch MEALS METFORMIN 2021-07 Yes [id number] TAKE ONE [facility] 1,000 mg 0-18 (1) TABLET [facility] o f tablet 00:00: BY MOUTH [place] 00 TWICE Medical DAILY WITH Branch MEALS METFORMIN 2021-07 Yes [id number] TAKE ONE [facility] 1,000 mg 0-18 (1) TABLET [facility] o f tablet 00:00: BY MOUTH [place] 00 TWICE Medical DAILY WITH Branch MEALS METFORMIN 2021-07 Yes [id number] TAKE ONE [facility] 1,000 mg 0-18 (1) TABLET [facility] o f tablet 00:00: BY MOUTH [place] 00 TWICE Medical DAILY WITH Branch MEALS METFORMIN 2021-07 Yes [id number] TAKE ONE [facility] 1,000 mg 0-18 (1) TABLET [facility] o f tablet 00:00: BY MOUTH [place] 00 TWICE Medical DAILY WITH Branch MEALS METFORMIN 2021-07 Yes [id number] TAKE ONE [facility] 1,000 mg 0-18 (1) TABLET ity o f tablet 00:00: BY MOUTH [place] [address] TWICE Medical DAILY WITH Branch MEALS METFORMIN 2021-07- No [id number] TAKE ONE [facility] 1,000 mg 0-18 12-08 (1) TABLET ity of tablet 00:00: 00:00 BY MOUTH [place] 00 :00 TWICE Medical DAILY WITH Branch MEALS lisinopriL 2021-07 Yes [id number] 15mg Take 1.5 [facility] 10 mg 0-11 tablets by [facility]y of tablet 00:00: mouth in [place] the Medical morning. Branch Hold if BP < 110/60 lisinopriL 2021-07 Yes [id number] 15mg Take 1.5 [facility] 10 mg 0-11 tablets by [facility] of tablet 00:00: mouth in [place] 00 the Medical morning. Branch Hold if BP < 110/60 lisinopriL 2021-07 Yes [id number] 15mg Take 1.5 [facility] 10 mg 0-11 tablets by [facility]y of tablet 00:00: mouth in [place] the Medical morning. Branch Hold if BP < 110/60 lisinopriL 2021-07 Yes [id number] 15mg Take 1.5 [facility] 10 mg 0-11 tablets by [facility]y of tablet 00:00: mouth in [place] the Medical morning. Branch Hold if BP < 110/60 lisinopriL 2022-1 Yes [id number] 15mg Take 1.5 [facility] 10 mg 0-11 tablets by [facility]y of tablet 00:00: mouth in [place] the Medical morning. Branch Hold if BP < 110/60 lisinopriL 2022-1 Yes [id number] 15mg Take 1.5 [facility] 10 mg 0-11 tablets by [facility]y of tablet 00:00: mouth in [place] the Medical morning. Branch Hold if BP < 110/60 lisinopriL 2022-1 Yes [id number] 15mg Take 1.5 [facility] 10 mg 0-11 tablets by ity of tablet 00:00: mouth in [place] the Medical morning. Branch Hold if BP < 110/60 lisinopriL 2022-1 Yes [id number] 15mg Take 1.5 [facility] 10 mg 0-11 tablets by ity of tablet 00:00: mouth in [place] the Medical morning. Branch Hold if BP < 110/60 lisinopriL 2022-1 Yes [id number] 15mg Take 1.5 [facility] 10 mg 0-11 tablets by ity of tablet 00:00: mouth in [place] the Medical morning. Branch Hold if BP < 110/60 lisinopriL 2022-1 Yes [id number] 15mg Take 1.5 [facility] 10 mg 0-11 tablets by ity of tablet 00:00: mouth in [place] the Medical morning. Branch Hold if BP < 110/60 lisinopriL 2022-1 Yes [id number] 15mg Take 1.5 [facility] 10 mg 0-11 tablets by ity of tablet 00:00: mouth in [place] the Medical morning. Branch Hold if BP < 110/60 lisinopriL 2022-1 Yes [id number] 15mg Take 1.5 [facility] 10 mg 0-11 tablets by ity of tablet 00:00: mouth in [place] the Medical morning. Branch Hold if BP < 110/60 lisinopriL 2022-1 Yes [id number] 15mg Take 1.5 [facility] 10 mg 0-11 tablets by ity of tablet 00:00: mouth in [place] the Medical morning. Branch Hold if BP < 110/60 lisinopriL 2022-1 Yes [id number] 15mg Take 1.5 [facility] 10 mg 0-11 tablets by [facility]y of tablet 00:00: mouth in [place] the Medical morning. Branch Hold if BP < 110/60 lisinopriL 2022-1 Yes [id number] 15mg Take 1.5 [facility] 10 mg 0-11 tablets by ity of tablet 00:00: mouth in [place] the Medical morning. Branch Hold if BP < 110/60 lisinopriL 2022-1 Yes [id number] 15mg Take 1.5 [facility] 10 mg 0-11 tablets by [facility]y of tablet 00:00: mouth in [place] the Medical morning. Branch Hold if BP < 110/60 lisinopriL 2022-1 Yes [id number] 15mg Take 1.5 [facility] 10 mg 0-11 tablets by [facility]y of tablet 00:00: mouth in [place] the Medical morning. Branch Hold if BP < 110/60 lisinopriL 2022-1 Yes [id number] 15mg Take 1.5 [facility] 10 mg 0-11 tablets by ity of tablet 00:00: mouth in [place] the Medical morning. Branch Hold if BP < 110/60 lisinopriL 2022-1 Yes [id number] 15mg Take 1.5 [facility] 10 mg 0-11 tablets by [facility] of tablet 00:00: mouth in [place] the Medical morning. Branch Hold if BP < 110/60 lisinopriL 2022-1 Yes [id number] 15mg Take 1.5 [facility] 10 mg 0-11 tablets by [facility]y of tablet 00:00: mouth in [place] the Medical morning. Branch Hold if BP < 110/60 lisinopriL 2022-1 Yes [id number] 15mg Take 1.5 [facility] 10 mg 0-11 tablets by [facility]y of tablet 00:00: mouth in [place] the Medical morning. Branch Hold if BP < 110/60 lisinopriL 2022-1 Yes [id number] 15mg Take 1.5 [facility] 10 mg 0-11 tablets by ity of tablet 00:00: mouth in [place] the Medical morning. Branch Hold if BP < 110/60 lisinopriL 2022-1 Yes [id number] 15mg Take 1.5 [facility] 10 mg 0-11 tablets by [facility]y of tablet 00:00: mouth in [place] the Medical morning. Branch Hold if BP < 110/60 lisinopriL 2022-1 Yes [id number] 15mg Take 1.5 [facility] 10 mg 0-11 tablets by [facility]y of tablet 00:00: mouth in [place] the Medical morning. Branch Hold if BP < 110/60 lisinopriL 2022-1 Yes [id number] 15mg Take 1.5 [facility] 10 mg 0-11 tablets by ity of tablet 00:00: mouth in [place] the Medical morning. Branch Hold if BP < 110/60 lisinopriL 2-1 Yes [id number] 15mg Take 1.5 [facility] 10 mg 0-11 tablets by [facility]y of tablet 00:00: mouth in [place] the Medical morning. Branch Hold if BP < 110/60 lisinopriL 2-1 Yes [id number] 15mg Take 1.5 [facility] 10 mg 0-11 tablets by [facility]y of tablet 00:00: mouth in [place] the Medical morning. Branch Hold if BP < 110/60 lisinopriL 2021-1 Yes [id number] 15mg Take 1.5 [facility] 10 mg 0-11 tablets by ity of tablet 00:00: mouth in [place] the Medical morning. Branch Hold if BP < 110/60 lisinopriL 2-1 Yes [id number] 15mg Take 1.5 [facility] 10 mg 0-11 tablets by ity of tablet 00:00: mouth in [place] the Medical morning. Branch Hold if BP < 110/60 OMEPRAZOLE 2022-0 Yes [id number] TAKE 1 [facility] 40 mg 9-16 CAPSULE BY ity of capsule 00:00: MOUTH [place] 00 EVERY DAY Medical Branch OMEPRAZOLE 2022-0 Yes [id number] TAKE 1 [facility] 40 mg 9-16 CAPSULE BY ity of capsule 00:00: MOUTH [place] 00 EVERY DAY Medical Branch OMEPRAZOLE 2022-0 Yes [id number] TAKE 1 [facility] 40 mg 9-16 CAPSULE BY ity of capsule 00:00: MOUTH [place] 00 EVERY DAY Medical Branch OMEPRAZOLE 2022-0 Yes [id number] TAKE 1 [facility] 40 mg 9-16 CAPSULE BY ity of capsule 00:00: MOUTH [place] 00 EVERY DAY Medical Branch OMEPRAZOLE 2022-0 Yes [id number] TAKE 1 [facility] 40 mg 9-16 CAPSULE BY ity of capsule 00:00: MOUTH [place] 00 EVERY DAY Medical Branch OMEPRAZOLE 2022-0 Yes [id number] TAKE 1 [facility] 40 mg 9-16 CAPSULE BY ity of capsule 00:00: MOUTH [place] 00 EVERY DAY Medical Branch OMEPRAZOLE 2022-0 Yes [id number] TAKE 1 [facility] 40 mg 9-16 CAPSULE BY ity of capsule 00:00: MOUTH [place] 00 EVERY DAY Medical Branch OMEPRAZOLE 2022-0 Yes [id number] TAKE 1 [facility] 40 mg 9-16 CAPSULE BY ity of capsule 00:00: MOUTH [place] 00 EVERY DAY Medical Branch OMEPRAZOLE 2022-0 Yes [id number] TAKE 1 [facility] 40 mg 9-16 CAPSULE BY ity of capsule 00:00: MOUTH [place] 00 EVERY DAY Medical Branch OMEPRAZOLE 2022-0 Yes [id number] TAKE 1 [facility] 40 mg 9-16 CAPSULE BY ity of capsule 00:00: MOUTH [place] 00 EVERY DAY Medical Branch OMEPRAZOLE 2022-0 Yes [id number] TAKE 1 [facility] 40 mg 9-16 CAPSULE BY ity of capsule 00:00: MOUTH [place] 00 EVERY DAY Medical Branch OMEPRAZOLE 2022-0 Yes [id number] TAKE 1 [facility] 40 mg 9-16 CAPSULE BY ity of capsule 00:00: MOUTH [place] 00 EVERY DAY Medical Branch OMEPRAZOLE 2022-0 Yes [id number] TAKE 1 [facility] 40 mg 9-16 CAPSULE BY ity of capsule 00:00: MOUTH [place] 00 EVERY DAY Medical Branch OMEPRAZOLE 2022-0 Yes [id number] TAKE 1 [facility] 40 mg 9-16 CAPSULE BY ity of capsule 00:00: MOUTH [place] 00 EVERY DAY Medical Branch OMEPRAZOLE 2022-0 Yes [id number] TAKE 1 [facility] 40 mg 9-16 CAPSULE BY ity of capsule 00:00: MOUTH [place] 00 EVERY DAY Medical Branch OMEPRAZOLE 2022-0 Yes [id number] TAKE 1 [facility] 40 mg 9-16 CAPSULE BY ity of capsule 00:00: MOUTH [place] 00 EVERY DAY Medical Branch OMEPRAZOLE 2022-0 Yes [id number] TAKE 1 [facility] 40 mg 9-16 CAPSULE BY ity of capsule 00:00: MOUTH [place] 00 EVERY DAY Medical Branch OMEPRAZOLE 2022-0 Yes [id number] TAKE 1 [facility] 40 mg 9-16 CAPSULE BY ity of capsule 00:00: MOUTH [place] 00 EVERY DAY Medical Branch OMEPRAZOLE 2022-0 Yes [id number] TAKE 1 [facility] 40 mg 9-16 CAPSULE BY ity of capsule 00:00: MOUTH [place] 00 EVERY DAY Medical Branch OMEPRAZOLE 2022-0 Yes [id number] TAKE 1 [facility] 40 mg 9-16 CAPSULE BY ity of capsule 00:00: MOUTH [place] 00 EVERY DAY Medical Branch OMEPRAZOLE 2022-0 Yes [id number] TAKE 1 [facility] 40 mg 9-16 CAPSULE BY ity of capsule 00:00: MOUTH [place] 00 EVERY DAY Medical Branch OMEPRAZOLE 2022-0 Yes [id number] TAKE 1 [facility] 40 mg 9-16 CAPSULE BY ity of capsule 00:00: MOUTH [place] 00 EVERY DAY Medical Branch OMEPRAZOLE 2022-0 Yes [id number] TAKE 1 [facility] 40 mg 9-16 CAPSULE BY ity of capsule 00:00: MOUTH [place] 00 EVERY DAY Medical Branch OMEPRAZOLE 2022-0 Yes [id number] TAKE 1 [facility] 40 mg 9-16 CAPSULE BY ity of capsule 00:00: MOUTH [place] 00 EVERY DAY Medical Branch OMEPRAZOLE 2022-0 Yes [id number] TAKE 1 [facility] 40 mg 9-16 CAPSULE BY ity of capsule 00:00: MOUTH [place] 00 EVERY DAY Medical Branch OMEPRAZOLE 2022-0 Yes [id number] TAKE 1 [facility] 40 mg 9-16 CAPSULE BY ity of capsule 00:00: MOUTH [place] 00 EVERY DAY Medical Branch OMEPRAZOLE 2022-0 Yes [id number] TAKE 1 [facility] 40 mg 9-16 CAPSULE BY ity of capsule 00:00: MOUTH [place] 00 EVERY DAY Medical Branch OMEPRAZOLE 2022-0 Yes [id number] TAKE 1 [facility] 40 mg 9-16 CAPSULE BY ity of capsule 00:00: MOUTH [place] 00 EVERY DAY Medical Branch OMEPRAZOLE 2022-0 2- No [id number] TAKE 1 [facility] 40 mg 9-16 12-08 CAPSULE BY ity of capsule 00:00: 00:00 MOUTH [place] 00 :00 EVERY DAY Medical Branch atorvastati 2021-0 Yes [id number] 40mg Take 1 [facility] n 40 mg 9-09 tablet by ity of tablet 00:00: mouth at [place] 00 bedtime. Medical Branch atorvastati 2021-0 Yes [id number] 40mg Take 1 [facility] n 40 mg 9-09 tablet by [facility]y of tablet 00:00: mouth at [place] 00 bedtime. Medical Branch atorvastati 2021-0 Yes [id number] 40mg Take 1 [facility] n 40 mg 9-09 tablet by ity of tablet 00:00: mouth at [place] 00 bedtime. Medical Branch atorvastati 2021-0 Yes [id number] 40mg Take 1 [facility] n 40 mg 9-09 tablet by ity of tablet 00:00: mouth at [place] 00 bedtime. Medical Branch atorvastati 2021-0 Yes [id number] 40mg Take 1 [facility] n 40 mg 9-09 tablet by ity of tablet 00:00: mouth at [place] 00 bedtime. Medical Branch atorvastati 2021-0 Yes [id number] 40mg Take 1 [facility] n 40 mg 9-09 tablet by ity of tablet 00:00: mouth at [place] 00 bedtime. Medical Branch atorvastati 2021-0 Yes [id number] 40mg Take 1 [facility] n 40 mg 9-09 tablet by ity of tablet 00:00: mouth at [place] 00 bedtime. Medical Branch atorvastati 2021-0 Yes [id number] 40mg Take 1 [facility] n 40 mg 9-09 tablet by ity of tablet 00:00: mouth at [place] 00 bedtime. Medical Branch atorvastati 0 Yes [id number] 40mg Take 1 [facility] n 40 mg 9-09 tablet by ity of tablet 00:00: mouth at [place] 00 bedtime. Medical Branch atorvastati 2021-0 Yes [id number] 40mg Take 1 [facility] n 40 mg 9-09 tablet by ity of tablet 00:00: mouth at [place] 00 bedtime. Medical Branch atorvastati 0 Yes [id number] 40mg Take 1 [facility] n 40 mg 9-09 tablet by ity of tablet 00:00: mouth at [place] 00 bedtime. Medical Branch atorvasta 0 Yes [id number] 40mg Take 1 [facility] n 40 mg 9-09 tablet by ity of tablet 00:00: mouth at [place] 00 bedtime. Medical Branch atorvastati 0 Yes [id number] 40mg Take 1 [facility] n 40 mg 9-09 tablet by ity of tablet 00:00: mouth at [place] 00 bedtime. Medical Branch atorvastati 2021-0 Yes [id number] 40mg Take 1 [facility] n 40 mg 9-09 tablet by ity of tablet 00:00: mouth at [place] 00 bedtime. Medical Branch atorvastati 0 Yes [id number] 40mg Take 1 [facility] n 40 mg 9-09 tablet by ity of tablet 00:00: mouth at [place] 00 bedtime. Medical Branch atorvastati 2021-0 Yes [id number] 40mg Take 1 [facility] n 40 mg 9-09 tablet by ity of tablet 00:00: mouth at [place] 00 bedtime. Medical Branch atorvastati 2021-0 Yes [id number] 40mg Take 1 [facility] n 40 mg 9-09 tablet by ity of tablet 00:00: mouth at [place] 00 bedtime. Medical Branch atorvasta 2021-0 Yes [id number] 40mg Take 1 [facility] n 40 mg 9-09 tablet by ity of tablet 00:00: mouth at [place] 00 bedtime. Medical Branch atorvasta 2021-0 Yes [id number] 40mg Take 1 [facility] n 40 mg 9-09 tablet by ity of tablet 00:00: mouth at [place] 00 bedtime. Medical Branch atorvasta 2021-0 Yes [id number] 40mg Take 1 [facility] n 40 mg 9-09 tablet by ity of tablet 00:00: mouth at [place] 00 bedtime. Medical Branch atorvasta 0 Yes [id number] 40mg Take 1 [facility] n 40 mg 9-09 tablet by ity of tablet 00:00: mouth at [place] [address] bedtime. Medical Branch atorvasta 2021-0 Yes [id number] 40mg Take 1 [facility] n 40 mg 9-09 tablet by ity of tablet 00:00: mouth at [place] 00 bedtime. Medical Branch atorvasta 0 Yes [id number] 40mg Take 1 [facility] n 40 mg 9-09 tablet by ity of tablet 00:00: mouth at [place] [address] bedtime. Medical Branch atorvasta 0 Yes [id number] 40mg Take 1 [facility] n 40 mg 9-09 tablet by ity of tablet 00:00: mouth at [place] [address] bedtime. Medical Branch atorvasta 2021-0 Yes [id number] 40mg Take 1 [facility] n 40 mg 9-09 tablet by ity of tablet 00:00: mouth at [place] [address] bedtime. Medical Branch atorvasta 2021-0 Yes [id number] 40mg Take 1 [facility] n 40 mg 9-09 tablet by ity of tablet 00:00: mouth at [place] [address] bedtime. Medical Branch atorvasta 2021-0 Yes [id number] 40mg Take 1 [facility] n 40 mg 9-09 tablet by ity of tablet 00:00: mouth at [place] [address] bedtime. Medical Branch atorvasta 2021-0 Yes [id number] 40mg Take 1 [facility] n 40 mg 9-09 tablet by ity of tablet 00:00: mouth at [place] [address] bedtime. Medical Branch atorvastati 2021-0 Yes [id number] 40mg Take 1 [facility] n 40 mg 9-09 tablet by ity of tablet 00:00: mouth at [place] 00 bedtime. Medical Branch atorvastati 2021-0 Yes [id number] 40mg Take 1 [facility] n 40 mg 9-09 tablet by ity of tablet 00:00: mouth at [place] 00 bedtime. Medical Branch atorvastati 2021-0 Yes [id number] 40mg Take 1 [facility] n 40 mg 9-09 tablet by ity of tablet 00:00: mouth at [place] 00 bedtime. Medical Branch atorvastati 0 Yes [id number] 40mg Take 1 [facility] n 40 mg 9-09 tablet by ity of tablet 00:00: mouth at [place] [address] bedtime. Medical Branch atorvastati 0 Yes [id number] 40mg Take 1 [facility] n 40 mg 9-09 tablet by ity of tablet 00:00: mouth at [place] [address] bedtime. Medical Branch atorvastati 0 Yes [id number] 40mg Take 1 [facility] n 40 mg 9-09 tablet by ity of tablet 00:00: mouth at [place] [address] bedtime. Medical Branch atorvastati 0 Yes [id number] 40mg Take 1 [facility] n 40 mg 9-09 tablet by ity of tablet 00:00: mouth at [place] [address] bedtime. Medical Branch atorvastati 0 Yes [id number] 40mg Take 1 [facility] n 40 mg 9-09 tablet by ity of tablet 00:00: mouth at [place] [address] bedtime. Medical Branch atorvastati 2021-0 Yes [id number] 40mg Take 1 [facility] n 40 mg 9-09 tablet by ity of tablet 00:00: mouth at [place] [address] bedtime. Medical Branch atorvastati 2021-0 Yes [id number] 40mg Take 1 [facility] n 40 mg 9-09 tablet by ity of tablet 00:00: mouth at [place] [address] bedtime. Medical Branch atorvastati 0 Yes [id number] 40mg Take 1 [facility] n 40 mg 9-09 tablet by ity of tablet 00:00: mouth at [place] [address] bedtime. Medical Branch atorvastati 2021-0 Yes [id number] 40mg Take 1 [facility] n 40 mg 909 tablet by ity of tablet 00:00: mouth at [place] 00 bedtime. Medical Branch NOVOLOG MIX Yes [id number] INJECT 30 [facility] 70-30 100 8-24 UNITS ity of unit/mL 00:00: [place] (70-30[place] 00 USLY TWICE Medica l injection DAILY WITH [facility] ch MEALS NOVOLOG MIX Yes [id number] INJECT 30 [facility] 70-30 100 8-24 UNITS ity of unit/mL 00:00: [place] (70-30) 00 USLY TWICE Medica l injection DAILY WITH [facility] ch MEALS NOVOLOG MIX Yes [id number] INJECT 30 [facility] 70-30 100 8-24 UNITS ity of unit/mL 00:00: [place] (70-30) 00 USLY TWICE Medica l injection DAILY WITH [facility] ch MEALS NOVOLOG MIX Yes [id number] INJECT 30 [facility] 70-30 100 8-24 UNITS ity of unit/mL 00:00: [place] (70-30) 00 USLY TWICE Medica l injection DAILY WITH [facility] ch MEALS NOVOLOG MIX Yes [id number] INJECT 30 [facility] 70-30 100 8-24 UNITS ity of unit/mL 00:00: [place] (70-30) 00 USLY TWICE Medica l injection DAILY WITH [facility] ch MEALS NOVOLOG MIX Yes [id number] INJECT 30 [facility] 70-30 100 8-24 UNITS ity of unit/mL 00:00: [place] (70-30) 00 USLY TWICE Medica l injection DAILY WITH [facility] ch MEALS NOVOLOG MIX Yes [id number] INJECT 30 [facility] 70-30 100 8-24 UNITS ity of unit/mL 00:00: [place] (70-30) 00 USLY TWICE Medica l injection DAILY WITH [facility] ch MEALS NOVOLOG MIX Yes [id number] INJECT 30 [facility] 70-30 100 8-24 UNITS ity of unit/mL 00:00: [place] (70-30) 00 USLY TWICE Medica l injection DAILY WITH [facility] ch MEALS NOVOLOG MIX Yes [id number] INJECT 30 [facility] 70-30 100 8-24 UNITS ity of unit/mL 00:00: [place] (70-30) 00 USLY TWICE Medica l injection DAILY WITH [facility] ch MEALS NOVOLOG MIX Yes [id number] INJECT 30 [facility] 70-30 100 8-24 UNITS ity of unit/mL 00:00: [place] (70-30) 00 USLY TWICE Medica l injection DAILY WITH [facility] ch MEALS NOVOLOG MIX Yes [id number] INJECT 30 [facility] 70-30 100 8-24 UNITS ity of unit/mL 00:00: [place] (70-30) 00 USLY TWICE Medica l injection DAILY WITH [facility] ch MEALS NOVOLOG MIX Yes [id number] INJECT 30 [facility] 70-30 100 8-24 UNITS ity of unit/mL 00:00: [place] (70-30) 00 USLY TWICE Medica l injection DAILY WITH [facility] ch MEALS NOVOLOG MIX Yes [id number] INJECT 30 [facility] 70-30 100 8-24 UNITS ity of unit/mL 00:00: [place] (70-30[place] 00 USLY TWICE Medica l injection DAILY WITH [facility] ch MEALS NOVOLOG MIX Yes [id number] INJECT 30 [facility] 70-30 100 8-24 UNITS ity of unit/mL 00:00: [place] (70-30) 00 USLY TWICE Medica l injection DAILY WITH [facility] ch MEALS NOVOLOG MIX Yes [id number] INJECT 30 [facility] 70-30 100 8-24 UNITS ity of unit/mL 00:00: [place] (70-30) 00 USLY TWICE Medica l injection DAILY WITH [facility] ch MEALS NOVOLOG MIX Yes [id number] INJECT 30 [facility] 70-30 100 8-24 UNITS ity of unit/mL 00:00: [place] (70-30) 00 USLY TWICE Medica l injection DAILY WITH [facility] ch MEALS NOVOLOG MIX Yes [id number] INJECT 30 [facility] 70-30 100 8-24 UNITS ity of unit/mL 00:00: [place] (70-30) 00 USLY TWICE Medica l injection DAILY WITH [facility] ch MEALS NOVOLOG MIX Yes [id number] INJECT 30 [facility] 70-30 100 8-24 UNITS ity of unit/mL 00:00: [place] (70-30[place] 00 USLY TWICE Medica l injection DAILY WITH [facility] ch MEALS NOVOLOG MIX Yes [id number] INJECT 30 [facility] 70-30 100 8-24 UNITS ity of unit/mL 00:00: [place] (70-30) 00 USLY TWICE Medica l injection DAILY WITH [facility] ch MEALS NOVOLOG MIX Yes [id number] INJECT 30 [facility] 70-30 100 8-24 UNITS ity of unit/mL 00:00: [place] (70-30) 00 USLY TWICE Medica l injection DAILY WITH [facility] ch MEALS NOVOLOG MIX Yes [id number] INJECT 30 [facility] 70-30 100 8-24 UNITS ity of unit/mL 00:00: [place] (70-30) 00 USLY TWICE Medica l injection DAILY WITH [facility] ch MEALS NOVOLOG MIX Yes [id number] INJECT 30 [facility] 70-30 100 8-24 UNITS ity of unit/mL 00:00: [place] (70-30) 00 USLY TWICE Medica l injection DAILY WITH [facility] ch MEALS NOVOLOG MIX Yes [id number] INJECT 30 [facility] 70-30 100 8-24 UNITS ity of unit/mL 00:00: [place] (70-30[place] 00 USLY TWICE Medica l injection DAILY WITH [facility] ch MEALS NOVOLOG MIX Yes [id number] INJECT 30 [facility] 70-30 100 8-24 UNITS ity of unit/mL 00:00: [place] (70-30[place] 00 USLY TWICE Medica l injection DAILY WITH [facility] ch MEALS NOVOLOG MIX Yes [id number] INJECT 30 [facility] 70-30 100 8-24 UNITS ity of unit/mL 00:00: [place] (70-30[place] 00 USLY TWICE Medica l injection DAILY WITH [facility] ch MEALS NOVOLOG MIX Yes [id number] INJECT 30 [facility] 70-30 100 8-24 UNITS ity of unit/mL 00:00: [place] (70-30[place] 00 USLY TWICE Medica l injection DAILY WITH [facility] ch MEALS NOVOLOG MIX Yes [id number] INJECT 30 [facility] 70-30 100 8-24 UNITS ity of unit/mL 00:00: [place] (70-30[place] 00 USLY TWICE Medica l injection DAILY WITH [facility] ch MEALS NOVOLOG MIX Yes [id number] INJECT 30 [facility] 70-30 100 8-24 UNITS ity of unit/mL 00:00: [place] (70-30[place] 00 USLY TWICE Medica l injection DAILY WITH [facility] ch MEALS NOVOLOG MIX Yes [id number] INJECT 30 [facility] 70-30 100 8-24 UNITS ity of unit/mL 00:00: [place] (70-30[place] 00 USLY TWICE Medica l injection DAILY WITH [facility] ch MEALS NOVOLOG MIX Yes [id number] INJECT 30 [facility] 70-30 100 8-24 UNITS ity of unit/mL 00:00: [place] (70-30[place] 00 USLY TWICE Medica l injection DAILY WITH [facility] ch MEALS NOVOLOG MIX Yes [id number] INJECT 30 [facility] 70-30 100 8-24 UNITS ity of unit/mL 00:00: [place] (70-30[place] 00 USLY TWICE Medica l injection DAILY WITH [facility] ch MEALS NOVOLOG MIX 2021- No [id number] INJECT 30 [facility] 70-30 100 8-24 12-08 UNITS ity of unit/mL 00:00: 00:00 SU[place]UTANE[place] (70-30) 00 :00 USLY TWICE Medica l injection DAILY WITH [facility] ch MEALS benzonatate Yes [id number] 200mg Take 1 [facility] 200 mg 7-13 capsule by ity of capsule 00:00: mouth 3 (three) Medical times Branch daily as needed for Cough. benzonatate Yes [id number] 200mg Take 1 [facility] 200 mg 7-13 capsule by [facility]y of capsule 00:00: mouth 3 (three) Medical times Branch daily as needed for Cough. benzonatate Yes [id number] 200mg Take 1 [facility] 200 mg 7-13 capsule by [facility]y of capsule 00:00: mouth 3 (three) Medical times Branch daily as needed for Cough. benzonatate 2022-0 Yes [id number] 200mg Take 1 [facility] 200 mg 7-13 capsule by [facility]y of capsule 00:00: mouth (three) Medical times Branch daily as needed for Cough. benzonatate 2-0 Yes [id number] 200mg Take 1 [facility] 200 mg 7-13 capsule by [facility]y of capsule 00:00: mouth (three) Medical times Branch daily as needed for Cough. benzonatate 2-0 Yes [id number] 200mg Take 1 [facility] 200 mg 7-13 capsule by [facility]y of capsule 00:00: mouth (three) Medical times Branch daily as needed for Cough. benzonatate 2-0 Yes [id number] 200mg Take 1 [facility] 200 mg 7-13 capsule by [facility]y of capsule 00:00: mouth (three) Medical times Branch daily as needed for Cough. benzonatate 2-0 Yes [id number] 200mg Take 1 [facility] 200 mg 7-13 capsule by [facility]y of capsule 00:00: mouth (three) Medical times Branch daily as needed for Cough. benzonatate 2-0 Yes [id number] 200mg Take 1 [facility] 200 mg 7-13 capsule by [facility]y of capsule 00:00: mouth (three) Medical times Branch daily as needed for Cough. benzonatate 2-0 Yes [id number] 200mg Take 1 [facility] 200 mg 7-13 capsule by ity of capsule 00:00: mouth (three) Medical times Branch daily as needed for Cough. benzonatate 2-0 Yes [id number] 200mg Take 1 [facility] 200 mg 7-13 capsule by [facility]y of capsule 00:00: mouth (three) Medical times Branch daily as needed for Cough. benzonatate 2-0 Yes [id number] 200mg Take 1 [facility] 200 mg 7-13 capsule by [facility]y of capsule 00:00: mouth (three) Medical times Branch daily as needed for Cough. benzonatate 2-0 Yes [id number] 200mg Take 1 [facility] 200 mg 7-13 capsule by ity of capsule 00:00: mouth (three) Medical times Branch daily as needed for Cough. benzonatate 2022-0 Yes [id number] 200mg Take 1 [facility] 200 mg 7-13 capsule by ity of capsule 00:00: mouth (three) Medical times Branch daily as needed for Cough. benzonatate 2022-0 Yes [id number] 200mg Take 1 [facility] 200 mg 7-13 capsule by ity of capsule 00:00: mouth (three) Medical times Branch daily as needed for Cough. benzonatate 2022-0 Yes [id number] 200mg Take 1 [facility] 200 mg 7-13 capsule by [facility] of capsule 00:00: mouth (three) Medical times Branch daily as needed for Cough. benzonatate 2-0 Yes [id number] 200mg Take 1 [facility] 200 mg 7-13 capsule by [facility] capsule 00:00: mouth (three) Medical times Branch daily as needed for Cough. benzonatate 2-0 Yes [id number] 200mg Take 1 [facility] 200 mg 7-13 capsule by [facility] of capsule 00:00: mouth (three) Medical times Branch daily as needed for Cough. benzonatate 2-0 Yes [id number] 200mg Take 1 [facility] 200 mg 7-13 capsule by [facility] of capsule 00:00: mouth (three) Medical times Branch daily as needed for Cough. benzonatate 2-0 Yes [id number] 200mg Take 1 [facility] 200 mg 7-13 capsule by [facility] of capsule 00:00: mouth (three) Medical times Branch daily as needed for Cough. benzonatate 2022-0 Yes [id number] 200mg Take 1 [facility] 200 mg 7-13 capsule by [facility] of capsule 00:00: mouth (three) Medical times Branch daily as needed for Cough. benzonatate 2-0 Yes [id number] 200mg Take 1 [facility] 200 mg 7-13 capsule by [facility] of capsule 00:00: mouth (three) Medical times Branch daily as needed for Cough. benzonatate 2022-0 Yes [id number] 200mg Take 1 [facility] 200 mg 7-13 capsule by [facility] of capsule 00:00: mouth (three) Medical times Branch daily as needed for Cough. benzonatate 2022-0 Yes [id number] 200mg Take 1 [facility] 200 mg 7-13 capsule by [facility] of capsule 00:00: mouth (three) Medical times Branch daily as needed for Cough. benzonatate 2022-0 Yes [id number] 200mg Take 1 [facility] 200 mg 7-13 capsule by [facility] of capsule 00:00: mouth (three) Medical times Branch daily as needed for Cough. benzonatate 2-0 Yes [id number] 200mg Take 1 [facility] 200 mg 7-13 capsule by [facility] of capsule 00:00: mouth (three) Medical times Branch daily as needed for Cough. benzonatate 2-0 Yes [id number] 200mg Take 1 [facility] 200 mg 7-13 capsule by [facility] of capsule 00:00: mouth (three) Medical times Branch daily as needed for Cough. benzonatate 2-0 Yes [id number] 200mg Take 1 [facility] 200 mg 7-13 capsule by [facility] of capsule 00:00: mouth (three) Medical times Branch daily as needed for Cough. benzonatate 2-0 Yes [id number] 200mg Take 1 [facility] 200 mg 7-13 capsule by [facility] of capsule 00:00: mouth (three) Medical times Branch daily as needed for Cough. benzonatate 2-0 Yes [id number] 200mg Take 1 [facility] 200 mg 7-13 capsule by [facility] of capsule 00:00: mouth (three) Medical times Branch daily as needed for Cough. benzonatate 2-0 Yes [id number] 200mg Take 1 [facility] 200 mg 7-13 capsule by [facility] of capsule 00:00: mouth (three) Medical times Branch daily as needed for Cough. benzonatate 2-0 Yes [id number] 200mg Take 1 [facility] 200 mg 7-13 capsule by [facility] of capsule 00:00: mouth (three) Medical times Branch daily as needed for Cough. benzonatate 2-0 Yes [id number] 200mg Take 1 [facility] 200 mg 7-13 capsule by [facility] of capsule 00:00: mouth (three) Medical times Branch daily as needed for Cough. benzonatate 2-0 Yes [id number] 200mg Take 1 [facility] 200 mg 7-13 capsule by [facility] of capsule 00:00: mouth (three) Medical times Branch daily as needed for Cough. benzonatate 2022-0 Yes [id number] 200mg Take 1 [facility] 200 mg 7-13 capsule by [facility] of capsule 00:00: mouth 3 (three) Medical times Branch daily as needed for Cough. benzonatate 2-0 Yes [id number] 200mg Take 1 [facility] 200 mg 7-13 capsule by [facility] of capsule 00:00: mouth 3 (three) Medical times Branch daily as needed for Cough. benzonatate 2021-0 Yes [id number] 200mg Take 1 [facility] 200 mg 7-13 capsule by [facility] of capsule 00:00: mouth 3 (three) Medical times Branch daily as needed for Cough. benzonatate 2021-0 Yes [id number] 200mg Take 1 [facility] 200 mg 7-13 capsule by [facility] of capsule 00:00: mouth 3 (three) Medical times Branch daily as needed for Cough. benzonatate 2021-0 Yes [id number] 200mg Take 1 [facility] 200 mg 7-13 capsule by [facility] of capsule 00:00: mouth 3 (three) Medical times Branch daily as needed for Cough. benzonatate 2021-0 Yes [id number] 200mg Take 1 [facility] 200 mg 7-13 capsule by [facility] of capsule 00:00: mouth 3 (three) Medical times Branch daily as needed for Cough. benzonatate 2021-0 Yes [id number] 200mg Take 1 [facility] 200 mg 7-13 capsule by [facility] of capsule 00:00: mouth 3 (three) Medical times Branch daily as needed for Cough. BUTALBITAL- 2022-0 Yes [id number] TAKE 1 [facility] ACETAMINOPH 6-23 CAPSULE BY it y of EN-CAFF 00:00: MOUTH [place] 50-325-40 00 EVERY 8 Medical mg tablet HOURS Branch NEEDED FOR MIGRAINE BUTALBITAL- 2022-0 Yes [id number] TAKE 1 [facility] ACETAMINOPH 6-23 CAPSULE BY it y of EN-CAFF 00:00: MOUTH [place] 50-325-40 00 EVERY 8 Medical mg tablet HOURS Branch NEEDED FOR MIGRAINE BUTALBITAL- 2022-0 Yes [id number] TAKE 1 [facility] ACETAMINOPH 6-23 CAPSULE BY it y of EN-CAFF 00:00: MOUTH [place] 50-325-40 00 EVERY 8 Medical mg tablet HOURS Branch NEEDED FOR MIGRAINE BUTALBITAL- 2022-0 Yes [id number] TAKE 1 [facility] ACETAMINOPH 6-23 CAPSULE BY it y of EN-CAFF 00:00: MOUTH [place] 50-325-40 00 EVERY 8 Medical mg tablet HOURS Branch NEEDED FOR MIGRAINE BUTALBITAL- 2-0 Yes [id number] TAKE 1 [facility] ACETAMINOPH 6-23 CAPSULE BY it y of EN-CAFF 00:00: MOUTH [place] 50-325-40 00 EVERY 8 Medical mg tablet HOURS Branch NEEDED FOR MIGRAINE BUTALBITAL- 2022-0 Yes [id number] TAKE 1 [facility] ACETAMINOPH 6-23 CAPSULE BY it y of EN-CAFF 00:00: MOUTH [place] 50-325-40 00 EVERY 8 Medical mg tablet HOURS Branch NEEDED FOR MIGRAINE BUTALBITAL- 2022-0 Yes [id number] TAKE 1 [facility] ACETAMINOPH 6-23 CAPSULE BY it y of EN-CAFF 00:00: MOUTH [place] 50-325-40 00 EVERY 8 Medical mg tablet HOURS Branch NEEDED FOR MIGRAINE BUTALBITAL- 2021-0 Yes [id number] TAKE 1 [facility] ACETAMINOPH 6-23 CAPSULE BY it y of EN-CAFF 00:00: MOUTH [place] 50-325-40 00 EVERY 8 Medical mg tablet HOURS Branch NEEDED FOR MIGRAINE BUTALBITAL- 2021-0 Yes [id number] TAKE 1 [facility] ACETAMINOPH 6-23 CAPSULE BY it y of EN-CAFF 00:00: MOUTH [place] 50-325-40 00 EVERY 8 Medical mg tablet HOURS Branch NEEDED FOR MIGRAINE BUTALBITAL- 2-0 Yes [id number] TAKE 1 [facility] ACETAMINOPH 6-23 CAPSULE BY it y of EN-CAFF 00:00: MOUTH [place] 50-325-40 00 EVERY 8 Medical mg tablet HOURS Branch NEEDED FOR MIGRAINE BUTALBITAL- 2022-0 Yes [id number] TAKE 1 [facility] ACETAMINOPH 6-23 CAPSULE BY it y of EN-CAFF 00:00: MOUTH [place] 50-325-40 00 EVERY 8 Medical mg tablet HOURS Branch NEEDED FOR MIGRAINE BUTALBITAL- 2-0 Yes [id number] TAKE 1 [facility] ACETAMINOPH 6-23 CAPSULE BY it y of EN-CAFF 00:00: MOUTH [place] 50-325-40 00 EVERY 8 Medical mg tablet HOURS Branch NEEDED FOR MIGRAINE BUTALBITAL- 2022-0 Yes [id number] TAKE 1 [facility] ACETAMINOPH 6-23 CAPSULE BY it y of EN-CAFF 00:00: MOUTH [place] 50-325-40 00 EVERY 8 Medical mg tablet HOURS Branch NEEDED FOR MIGRAINE BUTALBITAL- 2022-0 Yes [id number] TAKE 1 [facility] ACETAMINOPH 6-23 CAPSULE BY it y of EN-CAFF 00:00: MOUTH [place] 50-325-40 00 EVERY 8 Medical mg tablet HOURS Branch NEEDED FOR MIGRAINE BUTALBITAL- 2022-0 Yes [id number] TAKE 1 [facility] ACETAMINOPH 6-23 CAPSULE BY it y of EN-CAFF 00:00: MOUTH [place] 50-325-40 00 EVERY 8 Medical mg tablet HOURS Branch NEEDED FOR MIGRAINE BUTALBITAL- 2022-0 Yes [id number] TAKE 1 [facility] ACETAMINOPH 6-23 CAPSULE BY it y of EN-CAFF 00:00: MOUTH [place] 50-325-40 00 EVERY 8 Medical mg tablet HOURS Branch NEEDED FOR MIGRAINE BUTALBITAL- 2022-0 Yes [id number] TAKE 1 [facility] ACETAMINOPH 6-23 CAPSULE BY it y of EN-CAFF 00:00: MOUTH [place] 50-325-40 00 EVERY 8 Medical mg tablet HOURS Branch NEEDED FOR MIGRAINE BUTALBITAL- 2022-0 Yes [id number] TAKE 1 [facility] ACETAMINOPH 6-23 CAPSULE BY it y of EN-CAFF 00:00: MOUTH [place] 50-325-40 00 EVERY 8 Medical mg tablet HOURS Branch NEEDED FOR MIGRAINE BUTALBITAL- 2022-0 Yes [id number] TAKE 1 [facility] ACETAMINOPH 6-23 CAPSULE BY it y of EN-CAFF 00:00: MOUTH [place] 50-325-40 00 EVERY 8 Medical mg tablet HOURS Branch NEEDED FOR MIGRAINE BUTALBITAL- 2022-0 Yes [id number] TAKE 1 [facility] ACETAMINOPH 6-23 CAPSULE BY it y of EN-CAFF 00:00: MOUTH [place] 50-325-40 00 EVERY 8 Medical mg tablet HOURS Branch NEEDED FOR MIGRAINE BUTALBITAL- 2022-0 Yes [id number] TAKE 1 [facility] ACETAMINOPH 6-23 CAPSULE BY it y of EN-CAFF 00:00: MOUTH [place] 50-325-40 00 EVERY 8 Medical mg tablet HOURS Branch NEEDED FOR MIGRAINE BUTALBITAL- 2022-0 Yes [id number] TAKE 1 [facility] ACETAMINOPH 6-23 CAPSULE BY it y of EN-CAFF 00:00: MOUTH [place] 50-325-40 00 EVERY 8 Medical mg tablet HOURS Branch NEEDED FOR MIGRAINE BUTALBITAL- 2022-0 Yes [id number] TAKE 1 [facility] ACETAMINOPH 6-23 CAPSULE BY it y of EN-CAFF 00:00: MOUTH [place] 50-325-40 00 EVERY 8 Medical mg tablet HOURS Branch NEEDED FOR MIGRAINE BUTALBITAL- 2022-0 Yes [id number] TAKE 1 [facility] ACETAMINOPH 6-23 CAPSULE BY it y of EN-CAFF 00:00: MOUTH [place] 50-325-40 00 EVERY 8 Medical mg tablet HOURS Branch NEEDED FOR MIGRAINE BUTALBITAL- 2022-0 Yes [id number] TAKE 1 [facility] ACETAMINOPH 6-23 CAPSULE BY it y of EN-CAFF 00:00: MOUTH [place] 50-325-40 00 EVERY 8 Medical mg tablet HOURS Branch NEEDED FOR MIGRAINE BUTALBITAL- 2022-0 Yes [id number] TAKE 1 [facility] ACETAMINOPH 6-23 CAPSULE BY it y of EN-CAFF 00:00: MOUTH [place] 50-325-40 00 EVERY 8 Medical mg tablet HOURS Branch NEEDED FOR MIGRAINE BUTALBITAL- 2022-0 Yes [id number] TAKE 1 [facility] ACETAMINOPH 6-23 CAPSULE BY it y of EN-CAFF 00:00: MOUTH [place] 50-325-40 00 EVERY 8 Medical mg tablet HOURS Branch NEEDED FOR MIGRAINE BUTALBITAL- 2022-0 Yes [id number] TAKE 1 [facility] ACETAMINOPH 6-23 CAPSULE BY it y of EN-CAFF 00:00: MOUTH [place] 50-325-40 00 EVERY 8 Medical mg tablet HOURS Branch NEEDED FOR MIGRAINE BUTALBITAL- 2022-0 Yes [id number] TAKE 1 [facility] ACETAMINOPH 6-23 CAPSULE BY it y of EN-CAFF 00:00: MOUTH [place] 50-325-40 00 EVERY 8 Medical mg tablet HOURS Branch NEEDED FOR MIGRAINE BUTALBITAL- 2022-0 Yes [id number] TAKE 1 [facility] ACETAMINOPH 6-23 CAPSULE BY it y of EN-CAFF 00:00: MOUTH [place] 50-325-40 00 EVERY 8 Medical mg tablet HOURS Branch NEEDED FOR MIGRAINE BUTALBITAL- 2022-0 Yes [id number] TAKE 1 [facility] ACETAMINOPH 6-23 CAPSULE BY it y of EN-CAFF 00:00: MOUTH [place] 50-325-40 00 EVERY 8 Medical mg tablet HOURS Branch NEEDED FOR MIGRAINE BUTALBITAL- 2022-0 Yes [id number] TAKE 1 [facility] ACETAMINOPH 6-23 CAPSULE BY it y of EN-CAFF 00:00: MOUTH [place] 50-325-40 00 EVERY 8 Medical mg tablet HOURS Branch NEEDED FOR MIGRAINE BUTALBITAL- 2022-0 Yes [id number] TAKE 1 [facility] ACETAMINOPH 6-23 CAPSULE BY it y of EN-CAFF 00:00: MOUTH [place] 50-325-40 00 EVERY 8 Medical mg tablet HOURS Branch NEEDED FOR MIGRAINE BUTALBITAL- 2022-0 Yes [id number] TAKE 1 [facility] ACETAMINOPH 6-23 CAPSULE BY it y of EN-CAFF 00:00: MOUTH [place] 50-325-40 00 EVERY 8 Medical mg tablet HOURS Branch NEEDED FOR MIGRAINE BUTALBITAL- 2022-0 Yes [id number] TAKE 1 [facility] ACETAMINOPH 6-23 CAPSULE BY it y of EN-CAFF 00:00: MOUTH [place] 50-325-40 00 EVERY 8 Medical mg tablet HOURS Branch NEEDED FOR MIGRAINE BUTALBITAL- 2022-0 Yes [id number] TAKE 1 [facility] ACETAMINOPH 6-23 CAPSULE BY it y of EN-CAFF 00:00: MOUTH [place] 50-325-40 00 EVERY 8 Medical mg tablet HOURS Branch NEEDED FOR MIGRAINE BUTALBITAL- 2-0 Yes [id number] TAKE 1 [facility] ACETAMINOPH 6-23 CAPSULE BY it y of EN-CAFF 00:00: MOUTH [place] 50-325-40 00 EVERY 8 Medical mg tablet HOURS Branch NEEDED FOR MIGRAINE BUTALBITAL- 2022-0 2023- No [id number] TAKE 1 [facility] ACETAMINOPH 6-23 01-12 CAPSULE BY i ty of EN-CAFF 00:00: 00:00 MOUTH [place] 50-325-40 00 :00 EVERY 8 Medical mg tablet HOURS Branch NEEDED FOR MIGRAINE AMITRIPTYLI 2-0 Yes [id number] TAKE 1 [facility] [place] 100 mg 5-10 06 TABLET BY ity o f tablet 00:00: MOUTH [place] 00 EVERYDAY Medical AT BEDTIME Branch OMEPRAZOLE 2-0 Yes [id number] TAKE 1 [facility] 40 mg 5-10 CAPSULE BY ity of capsule 00:00: MOUTH [place] 00 EVERY DAY Medical Branch AMITRIPTYLI 2022-0 Yes [id number] TAKE 1 [facility] [place] 100 mg 5-10 06 TABLET BY ity o f tablet 00:00: MOUTH EVERYDAY Medical AT BEDTIME Branch OMEPRAZOLE 2-0 Yes [id number] TAKE 1 [facility] 40 mg 5-10 CAPSULE BY ity of capsule 00:00: [facility] EVERY DAY Medical Branch AMITRIPTYLI 2021-0 Yes [id number] TAKE 1 [facility] [place] 100 mg 5-10 06 TABLET BY ity o f tablet 00:00: MOUTH EVERYDAY Medical AT BEDTIME Branch OMEPRAZOLE 2-0 Yes [id number] TAKE 1 [facility] 40 mg 5-10 CAPSULE BY ity of capsule 00:00: [facility] EVERY DAY Medical Branch AMITRIPTYLI 2021-0 Yes [id number] TAKE 1 [facility] [place] 100 mg 5-10 06 TABLET BY ity o f tablet 00:00: EVERYDAY Medical AT BEDTIME Branch AMITRIPTYLI 2021-0 Yes [id number] TAKE 1 [facility] [place] 100 mg 5-10 06 TABLET BY ity o f tablet 00:00: EVERYDAY Medical AT BEDTIME Branch AMITRIPTYLI 2021-0 Yes [id number] TAKE 1 [facility] [place] 100 mg 5-10 06 TABLET BY ity o f tablet 00:00: MOUTH EVERYDAY Medical AT BEDTIME Branch AMITRIPTYLI 2021-0 Yes [id number] TAKE 1 [facility] [place] 100 mg 5-10 06 TABLET BY ity o f tablet 00:00: MOUTH EVERYDAY Medical AT BEDTIME Branch AMITRIPTYLI 2021-0 Yes [id number] TAKE 1 [facility] [place] 100 mg 5-10 06 TABLET BY ity o f tablet 00:00: EVERYDAY Medical AT BEDTIME Branch AMITRIPTYLI 2021-0 Yes [id number] TAKE 1 [facility] [place] 100 mg 5-10 06 TABLET BY ity o f tablet 00:00: [facility] EVERYDAY Medical AT BEDTIME Branch AMITRIPTYLI 2021-0 Yes [id number] TAKE 1 [facility] [place] 100 mg 5-10 06 TABLET BY ity o f tablet 00:00: MOUTH EVERYDAY Medical AT BEDTIME Branch AMITRIPTYLI 2021-0 Yes [id number] TAKE 1 [facility] [place] 100 mg 5-10 06 TABLET BY ity o f tablet 00:00: EVERYDAY Medical AT BEDTIME Branch AMITRIPTYLI 2021-0 Yes [id number] TAKE 1 [facility] [place] 100 mg 5-10 06 TABLET BY ity o f tablet 00:00: MOUTH 00 EVERYDAY Medical AT BEDTIME Branch AMITRIPTYLI 2021-0 Yes [id number] TAKE 1 [facility] [place] 100 mg 5-10 06 TABLET BY ity o f tablet 00:00: MOUTH EVERYDAY Medical AT BEDTIME Branch AMITRIPTYLI 2021-0 Yes [id number] TAKE 1 [facility] [place] 100 mg 5-10 06 TABLET BY ity o f tablet 00:00: MOUTH EVERYDAY Medical AT BEDTIME Branch AMITRIPTYLI 2021-0 Yes [id number] TAKE 1 [facility] [place] 100 mg 5-10 06 TABLET BY ity o f tablet 00:00: MOUTH EVERYDAY Medical AT BEDTIME [place] AMITRIPTYLI 2021-0 Yes [id number] TAKE 1 [facility] [place] 100 mg 5-10 06 TABLET BY ity o f tablet 00:00: [facility] EVERYDAY Medical AT BEDTIME Branch AMITRIPTYLI 2021-0 Yes [id number] TAKE 1 [facility] [place] 100 mg 5-10 06 TABLET BY ity o f tablet 00:00: MOUTH EVERYDAY Medical AT BEDTIME Branch AMITRIPTYLI 2021-0 Yes [id number] TAKE 1 [facility] [place] 100 mg 5-10 06 TABLET BY ity o f tablet 00:00: MOUTH EVERYDAY Medical AT BEDTIME Branch AMITRIPTYLI 2021-0 Yes [id number] TAKE 1 [facility] [place] 100 mg 5-10 06 TABLET BY ity o f tablet 00:00: [facility] EVERYDAY Medical AT BEDTIME Branch AMITRIPTYLI 2021-0 Yes [id number] TAKE 1 [facility] [place] 100 mg 5-10 06 TABLET BY ity o f tablet 00:00: [facility] EVERYDAY Medical AT BEDTIME Branch AMITRIPTYLI 2021-0 Yes [id number] TAKE 1 [facility] [place] 100 mg 5-10 06 TABLET BY ity o f tablet 00:00: MOUTH EVERYDAY Medical AT BEDTIME Branch AMITRIPTYLI 2021-0 Yes [id number] TAKE 1 [facility] [place] 100 mg 5-10 06 TABLET BY ity o f tablet 00:00: [facility] EVERYDAY Medical AT BEDTIME Branch AMITRIPTYLI 2021-0 Yes [id number] TAKE 1 [facility] [place] 100 mg 5-10 06 TABLET BY ity o f tablet 00:00: MOUTH [place] 00 EVERYDAY Medical AT BEDTIME Branch AMITRIPTYLI 2021-0 Yes [id number] TAKE 1 [facility] [place] 100 mg 5-10 06 TABLET BY ity o f tablet 00:00: MOUTH [place] 00 EVERYDAY Medical AT BEDTIME Branch AMITRIPTYLI 2021-0 Yes [id number] TAKE 1 [facility] [place] 100 mg 5-10 06 TABLET BY ity o f tablet 00:00: MOUTH [place] 00 EVERYDAY Medical AT BEDTIME Branch AMITRIPTYLI 2021-0 Yes [id number] TAKE 1 [facility] [place] 100 mg 5-10 06 TABLET BY ity o f tablet 00:00: MOUTH [place] 00 EVERYDAY Medical AT BEDTIME Branch AMITRIPTYLI 2021-0 Yes [id number] TAKE 1 [facility] [place] 100 mg 5-10 06 TABLET BY ity o f tablet 00:00: MOUTH [place] 00 EVERYDAY Medical AT BEDTIME Branch AMITRIPTYLI 2021-0 2021- No [id number] TAKE 1 [facility] [place] 100 mg 5-10 11-26 06 TABLET BY ity of tablet 00:00: 00:00 MOUTH [place] 00 :00 EVERYDAY Medical AT BEDTIME Branch OMEPRAZOLE 2021-0 2021- No [id number] TAKE 1 [facility] 40 mg 5-10 09-16 CAPSULE BY ity of capsule 00:00: 00:00 MOUTH [place] 00 :00 EVERY DAY Medical Branch lisinopriL 2021-0 Yes [id number] 15mg Take 1.5 [facility] 10 mg 4-29 tablets by ity of tablet 00:00: mouth [place] 00 daily. Medical Hold if BP Branch < 110/60 SITagliptin 2021-0 Yes [id number] 100mg Take 1 [facility] (JANUVIA) 4-29 tablet by ity o f 100 mg 00:00: mouth [place] tablet 00 daily. Medical Branch metFORMIN 2021-0 Yes [id number] 1000mg Take 1 [facility] 1,000 mg 4-29 tablet by ity of tablet 00:00: mouth 2 [place] 00 (two) Medical times Branch daily with meals. lisinopriL 2021-0 Yes [id number] 15mg Take 1.5 [facility] 10 mg 4-29 tablets by ity of tablet 00:00: mouth [place] 00 daily. Medical Hold if BP Branch < 110/60 SITagliptin 2022-0 Yes [id number] 100mg Take 1 [facility] (JANUVIA) 4-29 tablet by ity o f 100 mg 00:00: mouth [place] tablet 00 daily. Medical Branch metFORMIN 2-0 Yes [id number] 1000mg Take 1 [facility] 1,000 mg 4-29 tablet by ity of tablet 00:00: mouth 2 [place] 00 (two) Medical times Branch daily with meals. lisinopriL 2022-0 Yes [id number] 15mg Take 1.5 [facility] 10 mg 4-29 tablets by ity of tablet 00:00: mouth [place] 00 daily. Medical Hold if BP Branch < 110/60 SITagliptin 2-0 Yes [id number] 100mg Take 1 [facility] (JANUVIA) 4-29 tablet by ity o f 100 mg 00:00: mouth [place] tablet 00 daily. Medical Branch metFORMIN 2021-0 Yes [id number] 1000mg Take 1 [facility] 1,000 mg 4-29 tablet by ity of tablet 00:00: mouth 2 [place] 00 (two) Medical times Branch daily with meals. lisinopriL 2021-0 Yes [id number] 15mg Take 1.5 [facility] 10 mg 4-29 tablets by ity of tablet 00:00: mouth [place] 00 daily. Medical Hold if BP Branch < 110/60 SITagliptin 2021-0 Yes [id number] 100mg Take 1 [facility] (JANUVIA) 4-29 tablet by ity o f 100 mg 00:00: mouth [place] tablet 00 daily. Medical Branch metFORMIN 2021-0 Yes [id number] 1000mg Take 1 [facility] 1,000 mg 4-29 tablet by ity of tablet 00:00: mouth 2 [place] 00 (two) Medical times Branch daily with meals. lisinopriL 2022-0 Yes [id number] 15mg Take 1.5 [facility] 10 mg 4-29 tablets by ity of tablet 00:00: mouth [place] 00 daily. Medical Hold if BP Branch < 110/60 SITagliptin 2-0 Yes [id number] 100mg Take 1 [facility] (JANUVIA) 4-29 tablet by ity o f 100 mg 00:00: mouth [place] tablet 00 daily. Medical Branch metFORMIN 2-0 Yes [id number] 1000mg Take 1 [facility] 1,000 mg 4-29 tablet by ity of tablet 00:00: mouth 2 [place] 00 (two) Medical times Branch daily with meals. lisinopriL 2022-0 Yes [id number] 15mg Take 1.5 [facility] 10 mg 4-29 tablets by ity of tablet 00:00: mouth [place] 00 daily. Medical Hold if BP Branch < 110/60 SITagliptin 2-0 Yes [id number] 100mg Take 1 [facility] (JANUVIA) 4-29 tablet by ity o f 100 mg 00:00: mouth [place] tablet 00 daily. Medical Branch metFORMIN 2021-0 Yes [id number] 1000mg Take 1 [facility] 1,000 mg 4-29 tablet by ity of tablet 00:00: mouth 2 [place] 00 (two) Medical times Branch daily with meals. lisinopriL 2022-0 Yes [id number] 15mg Take 1.5 [facility] 10 mg 4-29 tablets by ity of tablet 00:00: mouth [place] 00 daily. Medical Hold if BP Branch < 110/60 SITagliptin 2021-0 Yes [id number] 100mg Take 1 [facility] (JANUVIA) 4-29 tablet by ity o f 100 mg 00:00: mouth [place] tablet 00 daily. Medical Branch metFORMIN 2021-0 Yes [id number] 1000mg Take 1 [facility] 1,000 mg 4-29 tablet by ity of tablet 00:00: mouth 2 [place] 00 (two) Medical times Branch daily with meals. lisinopriL 2-0 Yes [id number] 15mg Take 1.5 [facility] 10 mg 4-29 tablets by ity of tablet 00:00: mouth [place] 00 daily. Medical Hold if BP Branch < 110/60 SITagliptin 2-0 Yes [id number] 100mg Take 1 [facility] (JANUVIA) 4-29 tablet by ity o f 100 mg 00:00: mouth [place] tablet 00 daily. Medical Branch metFORMIN 2-0 Yes [id number] 1000mg Take 1 [facility] 1,000 mg 4-29 tablet by ity of tablet 00:00: mouth 2 [place] 00 (two) Medical times Branch daily with meals. lisinopriL 2022-0 Yes [id number] 15mg Take 1.5 [facility] 10 mg 4-29 tablets by ity of tablet 00:00: mouth [place] 00 daily. Medical Hold if BP Branch < 110/60 SITagliptin 2-0 Yes [id number] 100mg Take 1 [facility] (JANUVIA) 4-29 tablet by ity o f 100 mg 00:00: mouth [place] tablet 00 daily. Medical Branch metFORMIN 2022-0 Yes [id number] 1000mg Take 1 [facility] 1,000 mg 4-29 tablet by ity of tablet 00:00: mouth 2 [place] 00 (two) Medical times Branch daily with meals. lisinopriL 2022-0 Yes [id number] 15mg Take 1.5 [facility] 10 mg 4-29 tablets by ity of tablet 00:00: mouth [place] 00 daily. Medical Hold if BP Branch < 110/60 SITagliptin 2022-0 Yes [id number] 100mg Take 1 [facility] (JANUVIA) 4-29 tablet by ity o f 100 mg 00:00: mouth [place] tablet 00 daily. Medical Branch metFORMIN 2021-0 Yes [id number] 1000mg Take 1 [facility] 1,000 mg 4-29 tablet by ity of tablet 00:00: mouth 2 [place] 00 (two) Medical times Branch daily with meals. lisinopriL 2022-0 Yes [id number] 15mg Take 1.5 [facility] 10 mg 4-29 tablets by ity of tablet 00:00: mouth [place] 00 daily. Medical Hold if BP Branch < 110/60 SITagliptin 2021-0 Yes [id number] 100mg Take 1 [facility] (JANUVIA) 4-29 tablet by ity o f 100 mg 00:00: mouth [place] tablet 00 daily. Medical Branch metFORMIN 2021-0 Yes [id number] 1000mg Take 1 [facility] 1,000 mg 4-29 tablet by ity of tablet 00:00: mouth 2 [place] 00 (two) Medical times Branch daily with meals. lisinopriL 2022-0 Yes [id number] 15mg Take 1.5 [facility] 10 mg 4-29 tablets by ity of tablet 00:00: mouth [place] 00 daily. Medical Hold if BP Branch < 110/60 SITagliptin 2-0 Yes [id number] 100mg Take 1 [facility] (JANUVIA) 4-29 tablet by ity o f 100 mg 00:00: mouth [place] tablet 00 daily. Medical Branch metFORMIN 2022-0 Yes [id number] 1000mg Take 1 [facility] 1,000 mg 4-29 tablet by ity of tablet 00:00: mouth 2 [place] 00 (two) Medical times Branch daily with meals. lisinopriL 2022-0 Yes [id number] 15mg Take 1.5 [facility] 10 mg 4-29 tablets by ity of tablet 00:00: mouth [place] 00 daily. Medical Hold if BP Branch < 110/60 SITagliptin 2022-0 Yes [id number] 100mg Take 1 [facility] (JANUVIA) 4-29 tablet by ity o f 100 mg 00:00: mouth [place] tablet 00 daily. Medical Branch metFORMIN 0 Yes [id number] 1000mg Take 1 [facility] 1,000 mg 4-29 tablet by ity of tablet 00:00: mouth 2 [place] 00 (two) Medical times Branch daily with meals. SITagliptin 2021-0 Yes [id number] 100mg Take 1 [facility] (JANUVIA) 4-29 tablet by ity o f 100 mg 00:00: mouth [place] tablet 00 daily. Medical Branch metFORMIN Yes [id number] 1000mg Take 1 [facility] 1,000 mg 4-29 tablet by ity of tablet 00:00: mouth 2 [place] 00 (two) Medical times Branch daily with meals. SITagliptin 0 Yes [id number] 100mg Take 1 [facility] (JANUVIA) 4-29 tablet by ity o f 100 mg 00:00: mouth [place] tablet 00 daily. Medical Branch metFORMIN 0 Yes [id number] 1000mg Take 1 [facility] 1,000 mg 4-29 tablet by ity of tablet 00:00: mouth 2 [place] 00 (two) Medical times [place] daily with meals. SITagliptin 2021-0 Yes [id number] 100mg Take 1 [facility] (JANUVIA) 4-29 tablet by ity o f 100 mg 00:00: mouth [place] tablet [address] [facility] Branch SITagliptin Yes [id number] 100mg Take 1 [facility] (JANUVIA) 4-29 tablet by ity o f 100 mg 00:00: mouth [place] tablet 00 daily. Medical Branch SITagliptin Yes [id number] 100mg Take 1 [facility] (JANUVIA) 4-29 tablet by ity o f 100 mg 00:00: mouth [place] tablet 00 daily. Medical Branch SITagliptin 2021-0 Yes [id number] 100mg Take 1 [facility] (JANUVIA) 4-29 tablet by ity o f 100 mg 00:00: mouth [place] tablet [address] [facility] Branch SITagliptin 0 Yes [id number] 100mg Take 1 [facility] (JANUVIA) 4-29 tablet by ity o f 100 mg 00:00: mouth [place] tablet [address] [facility] Branch SITagliptin 2021-0 Yes [id number] 100mg Take 1 [facility] (JANUVIA) 4-29 tablet by ity o f 100 mg 00:00: mouth [place] tablet [address] [facility] Branch SITagliptin Yes [id number] 100mg Take 1 [facility] (JANUVIA) 4-29 tablet by ity o f 100 mg 00:00: mouth [place] tablet [address] [facility] Branch SITagliptin Yes [id number] 100mg Take 1 [facility] (JANUVIA) 4-29 tablet by ity o f 100 mg 00:00: mouth [place] tablet [address] [facility] Branch SITagliptin Yes [id number] 100mg Take 1 [facility] (JANUVIA) 4-29 tablet by ity o f 100 mg 00:00: mouth [place] tablet [address] [facility] Branch SITagliptin Yes [id number] 100mg Take 1 [facility] (JANUVIA) 4-29 tablet by ity o f 100 mg 00:00: mouth [place] tablet [address] [facility] Branch SITagliptin Yes [id number] 100mg Take 1 [facility] (JANUVIA) 4-29 tablet by ity o f 100 mg 00:00: mouth [place] tablet [address] [facility] Branch SITagliptin Yes [id number] 100mg Take 1 [facility] (JANUVIA) 4-29 tablet by ity o f 100 mg 00:00: mouth [place] tablet [address] [facility] SITagliptin Yes [id number] 100mg Take 1 [facility] (JANUVIA) 4-29 tablet by ity o f 100 mg 00:00: mouth [place] tablet [address] [facility] [facility] SITagliptin Yes [id number] 100mg Take 1 [facility] (JANUVIA) 4-29 tablet by ity o f 100 mg 00:00: mouth [place] tablet [address] [facility] SITagliptin Yes [id number] 100mg Take 1 [facility] (JANUVIA) 4-29 tablet by ity o f 100 mg 00:00: mouth [place] tablet [address] [facility] SITagliptin Yes [id number] 100mg Take 1 [facility] (JANUVIA) 4-29 tablet by ity o f 100 mg 00:00: mouth [place] tablet [address] [facility] SITagliptin Yes [id number] 100mg Take 1 [facility] (JANUVIA) 4-29 tablet by ity o f 100 mg 00:00: mouth [place] tablet [address] [facility] SITagliptin Yes [id number] 100mg Take 1 [facility] (JANUVIA) 4-29 tablet by ity o f 100 mg 00:00: mouth [place] tablet [address] [facility] SITagliptin Yes [id number] 100mg Take 1 [facility] (JANUVIA) 4-29 tablet by ity o f 100 mg 00:00: mouth [place] tablet [address] [facility] SITagliptin Yes [id number] 100mg Take 1 [facility] (JANUVIA) 4-29 tablet by ity o f 100 mg 00:00: mouth [place] tablet [address] [facility] SITagliptin Yes [id number] 100mg Take 1 [facility] (JANUVIA) 4-29 tablet by ity o f 100 mg 00:00: mouth [place] tablet [address] [facility] SITagliptin Yes [id number] 100mg Take 1 [facility] (JANUVIA) 4-29 tablet by ity o f 100 mg 00:00: mouth [place] tablet [address] [facility] SITagliptin Yes [id number] 100mg Take 1 [facility] (JANUVIA) 4-29 tablet by ity o f 100 mg 00:00: mouth [place] tablet [address] [facility] SITagliptin Yes [id number] 100mg Take 1 [facility] (JANUVIA) 4-29 tablet by ity o f 100 mg 00:00: mouth [place] tablet [address] [facility] SITagliptin Yes [id number] 100mg Take 1 [facility] (JANUVIA) 4-29 tablet by ity o f 100 mg 00:00: mouth [place] tablet [address] [facility] SITagliptin Yes [id number] 100mg Take 1 [facility] (JANUVIA) 4-29 tablet by ity o f 100 mg 00:00: mouth [place] tablet [address] [facility] SITagliptin Yes [id number] 100mg Take 1 [facility] (JANUVIA) 4-29 tablet by ity o f 100 mg 00:00: mouth [place] tablet [address] [facility] SITagliptin 2022- No [id number] 100mg Take 1 [facility] (JANUVIA) 4-29 02-02 tablet by ity of 100 mg 00:00: 00:00 mouth [place] tablet 00 :[address] [facility] metFORMIN 2021- No [id number] 1000mg Take 1 [facility] 1,000 mg 4-29 10-18 tablet by ity o f tablet 00:00: 00:00 mouth 2 [place] 00 :00 (two) Medical times Branch daily with meals. lisinopriL 2021- No [id number] 15mg Take 1.5 [facility] 10 mg 4-29 10-11 tablets by ity of tablet 00:00: 00:00 mouth [place] 00 :00 daily. Medical Hold if BP Branch < 110/60 lisinopriL 0 2021- No [id number] 15mg Take 1.5 [facility] 10 mg 4-29 10-11 tablets by ity of tablet 00:00: 00:00 mouth [place] 00 :00 daily. Medical Hold if BP Branch < 110/60 Insulin Asp 2021- No [id number] 30U inject 30 [facility] Prt-Insulin 4-29 08-24 Units ity of Aspart 00:00: 00:00 under the [place] (NOVOLOG 00 :00 skin 2 Medical MIX 70-30) (two) Branch 100 unit/mL times (70-30) daily with injection meals. E11.65 Insulin Asp 2021- No [id number] 30U inject 30 [facility] Prt-Insulin 4-29 08-24 Units ity of Aspart 00:00: 00:00 under the [place] (NOVOLOG 00 :00 skin 2 Medical MIX 70-30) (two) Branch 100 unit/mL times (70-30) daily with injection meals. E11.65 Butalbital- Yes [id number] 1{capsu Take 1 [facility] Acetaminoph 1-27 le} capsule by it y of en-Caff 00:00: mouth [place] (FIORICET) 00 every 8 Medica l 50-300-40 (eight) Branch mg per hours as capsule needed (Migraine) . pregabalin Yes [id number] 75mg Take 1 [facility] (LYRICA) 75 1-27 capsule by it y of mg capsule 00:00: mouth [place] (two) Medical times Branch daily. Butalbital- Yes [id number] 1{capsu Take 1 [facility] Acetaminoph 1-27 le} capsule by it y of en-Caff 00:00: mouth [place] (FIORICET) 00 every 8 Medica l 50-300-40 (eight) Branch mg per hours as capsule needed (Migraine) . pregabalin Yes [id number] 75mg Take 1 [facility] (LYRICA) 75 1-27 capsule by it y of mg capsule 00:00: mouth [place] 00 (two) Medical times Branch daily. Butalbital- Yes [id number] 1{capsu Take 1 [facility] Acetaminoph 1-27 le} capsule by it y of en-Caff 00:00: mouth [place] (FIORICET) 00 every 8 Medica l 50-300-40 (eight) Branch mg per hours as capsule needed (Migraine) . pregabalin Yes [id number] 75mg Take 1 [facility] (LYRICA) 75 1-27 capsule by it y of mg capsule 00:00: mouth [place] 00 (two) Medical times Branch daily. Butalbital- Yes [id number] 1{capsu Take 1 [facility] Acetaminoph 1-27 le} capsule by it y of en-Caff 00:00: mouth [place] (FIORICET) 00 every 8 Medica l 50-300-40 (eight) Branch mg per hours as capsule needed (Migraine) . pregabalin Yes [id number] 75mg Take 1 [facility] (LYRICA) 75 1-27 capsule by it y of mg capsule 00:00: mouth [place] 00 (two) Medical times Branch daily. Butalbital- Yes [id number] 1{capsu Take 1 [facility] Acetaminoph 1-27 le} capsule by it y of en-Caff 00:00: mouth [place] (FIORICET) 00 every 8 Medica l 50-300-40 (eight) Branch mg per hours as capsule needed (Migraine) . pregabalin Yes [id number] 75mg Take 1 [facility] (LYRICA) 75 1-27 capsule by it y of mg capsule 00:00: mouth [place] 00 (two) Medical times Branch daily. Butalbital- Yes [id number] 1{capsu Take 1 [facility] Acetaminoph 1-27 le} capsule by it y of en-Caff 00:00: mouth [place] (FIORICET) 00 every 8 Medica l 50-300-40 (eight) Branch mg per hours as capsule needed (Migraine) . pregabalin Yes [id number] 75mg Take 1 [facility] (LYRICA) 75 1-27 capsule by it y of mg capsule 00:00: mouth [place] 00 (two) Medical times Branch daily. Butalbital- Yes [id number] 1{capsu Take 1 [facility] Acetaminoph 1-27 le} capsule by it y of en-Caff 00:00: mouth [place] (FIORICET) 00 every 8 Medica l 50-300-40 (eight) Branch mg per hours as capsule needed (Migraine) . pregabalin Yes [id number] 75mg Take 1 [facility] (LYRICA) 75 1-27 capsule by it y of mg capsule 00:00: mouth 2 [place] 00 (two) Medical times Branch daily. Butalbital- Yes [id number] 1{capsu Take 1 [facility] Acetaminoph 1-27 le} capsule by it y of en-Caff 00:00: mouth [place] (FIORICET) 00 every 8 Medica l 50-300-40 (eight) Branch mg per hours as capsule needed (Migraine) . pregabalin Yes [id number] 75mg Take 1 [facility] (LYRICA) 75 1-27 capsule by it y of mg capsule 00:00: mouth 2 [place] 00 (two) Medical times Branch daily. Butalbital- Yes [id number] 1{capsu Take 1 [facility] Acetaminoph 1-27 le} capsule by it y of en-Caff 00:00: mouth [place] (FIORICET) 00 every 8 Medica l 50-300-40 (eight) Branch mg per hours as capsule needed (Migraine) . pregabalin Yes [id number] 75mg Take 1 [facility] (LYRICA) 75 1-27 capsule by it y of mg capsule 00:00: mouth [place] 00 (two) Medical times Branch daily. Butalbital- Yes [id number] 1{capsu Take 1 [facility] Acetaminoph 1-27 le} capsule by it y of en-Caff 00:00: mouth [place] (FIORICET) 00 every 8 Medica l 50-300-40 (eight) Branch mg per hours as capsule needed (Migraine) . pregabalin Yes [id number] 75mg Take 1 [facility] (LYRICA) 75 1-27 capsule by it y of mg capsule 00:00: mouth 2 [place] 00 (two) Medical times Branch daily. Butalbital- Yes [id number] 1{capsu Take 1 [facility] Acetaminoph 1-27 le} capsule by it y of en-Caff 00:00: mouth [place] (FIORICET) 00 every 8 Medica l 50-300-40 (eight) Branch mg per hours as capsule needed (Migraine) . pregabalin Yes [id number] 75mg Take 1 [facility] (LYRICA) 75 1-27 capsule by it y of mg capsule 00:00: mouth 2 [place] 00 (two) Medical times Branch daily. Butalbital- Yes [id number] 1{capsu Take 1 [facility] Acetaminoph 1-27 le} capsule by it y of en-Caff 00:00: mouth [place] (FIORICET) 00 every 8 Medica l 50-300-40 (eight) Branch mg per hours as capsule needed (Migraine) . pregabalin Yes [id number] 75mg Take 1 [facility] (LYRICA) 75 1-27 capsule by it y of mg capsule 00:00: mouth 2 [place] 00 (two) Medical times Branch daily. Butalbital- Yes [id number] 1{capsu Take 1 [facility] Acetaminoph 1-27 le} capsule by it y of en-Caff 00:00: mouth [place] (FIORICET) 00 every 8 Medica l 50-300-40 (eight) Branch mg per hours as capsule needed (Migraine) . pregabalin Yes [id number] 75mg Take 1 [facility] (LYRICA) 75 1-27 capsule by it y of mg capsule 00:00: mouth 2 [place] 00 (two) Medical times Branch daily. Butalbital- Yes [id number] 1{capsu Take 1 [facility] Acetaminoph 1-27 le} capsule by it y of en-Caff 00:00: mouth [place] (FIORICET) 00 every 8 Medica l 50-300-40 (eight) Branch mg per hours as capsule needed (Migraine) . pregabalin Yes [id number] 75mg Take 1 [facility] (LYRICA) 75 1-27 capsule by it y of mg capsule 00:00: mouth 2 [place] 00 (two) Medical times Branch daily. Butalbital- Yes [id number] 1{capsu Take 1 [facility] Acetaminoph 1-27 le} capsule by it y of en-Caff 00:00: mouth [place] (FIORICET) 00 every 8 Medica l 50-300-40 (eight) Branch mg per hours as capsule needed (Migraine) . pregabalin Yes [id number] 75mg Take 1 [facility] (LYRICA) 75 1-27 capsule by it y of mg capsule 00:00: mouth 2 [place] 00 (two) Medical times Branch daily. Butalbital- Yes [id number] 1{capsu Take 1 [facility] Acetaminoph 1-27 le} capsule by it y of en-Caff 00:00: mouth [place] (FIORICET) 00 every 8 Medica l 50-300-40 (eight) Branch mg per hours as capsule needed (Migraine) . pregabalin Yes [id number] 75mg Take 1 [facility] (LYRICA) 75 1-27 capsule by it y of mg capsule 00:00: mouth 2 [place] 00 (two) Medical times Branch daily. Butalbital- Yes [id number] 1{capsu Take 1 [facility] Acetaminoph 1-27 le} capsule by it y of en-Caff 00:00: mouth [place] (FIORICET) 00 every 8 Medica l 50-300-40 (eight) Branch mg per hours as capsule needed (Migraine) . pregabalin Yes [id number] 75mg Take 1 [facility] (LYRICA) 75 1-27 capsule by it y of mg capsule 00:00: mouth 2 [place] 00 (two) Medical times Branch daily. Butalbital- Yes [id number] 1{capsu Take 1 [facility] Acetaminoph 1-27 le} capsule by it y of en-Caff 00:00: mouth [place] (FIORICET) 00 every 8 Medica l 50-300-40 (eight) Branch mg per hours as capsule needed (Migraine) . pregabalin 2021-0 Yes [id number] 75mg Take 1 [facility] (LYRICA) 75 1-27 capsule by it y of mg capsule 00:00: mouth 2 [place] 00 (two) Medical times Branch daily. Butalbital- Yes [id number] 1{capsu Take 1 [facility] Acetaminoph 1-27 le} capsule by it y of en-Caff 00:00: mouth [place] (FIORICET) 00 every 8 Medica l 50-300-40 (eight) Branch mg per hours as capsule needed (Migraine) . pregabalin Yes [id number] 75mg Take 1 [facility] (LYRICA) 75 1-27 capsule by it y of mg capsule 00:00: mouth 2 [place] 00 (two) Medical times Branch daily. Butalbital- Yes [id number] 1{capsu Take 1 [facility] Acetaminoph 1-27 le} capsule by it y of en-Caff 00:00: mouth [place] (FIORICET) 00 every 8 Medica l 50-300-40 (eight) Branch mg per hours as capsule needed (Migraine) . pregabalin Yes [id number] 75mg Take 1 [facility] (LYRICA) 75 1-27 capsule by it y of mg capsule 00:00: mouth 2 [place] 00 (two) Medical times Branch daily. Butalbital- Yes [id number] 1{capsu Take 1 [facility] Acetaminoph 1-27 le} capsule by it y of en-Caff 00:00: mouth [place] (FIORICET) 00 every 8 Medica l 50-300-40 (eight) Branch mg per hours as capsule needed (Migraine) . pregabalin Yes [id number] 75mg Take 1 [facility] (LYRICA) 75 1-27 capsule by it y of mg capsule 00:00: mouth 2 [place] 00 (two) Medical times Branch daily. Butalbital- Yes [id number] 1{capsu Take 1 [facility] Acetaminoph 1-27 le} capsule by it y of en-Caff 00:00: mouth [place] (FIORICET) 00 every 8 Medica l 50-300-40 (eight) Branch mg per hours as capsule needed (Migraine) . pregabalin 2021- Yes [id number] 75mg Take 1 [facility] (LYRICA) 75 1-27 capsule by it y of mg capsule 00:00: mouth 2 [place] 00 (two) Medical times Branch daily. Butalbital- Yes [id number] 1{capsu Take 1 [facility] Acetaminoph 1-27 le} capsule by it y of en-Caff 00:00: mouth [place] (FIORICET) 00 every 8 Medica l 50-300-40 (eight) Branch mg per hours as capsule needed (Migraine) . pregabalin Yes [id number] 75mg Take 1 [facility] (LYRICA) 75 1-27 capsule by it y of mg capsule 00:00: mouth 2 [place] 00 (two) Medical times Branch daily. Butalbital- Yes [id number] 1{capsu Take 1 [facility] Acetaminoph 1-27 le} capsule by it y of en-Caff 00:00: mouth [place] (FIORICET) 00 every 8 Medica l 50-300-40 (eight) Branch mg per hours as capsule needed (Migraine) . pregabalin Yes [id number] 75mg Take 1 [facility] (LYRICA) 75 1-27 capsule by it y of mg capsule 00:00: mouth 2 [place] 00 (two) Medical times Branch daily. Butalbital- Yes [id number] 1{capsu Take 1 [facility] Acetaminoph 1-27 le} capsule by it y of en-Caff 00:00: mouth [place] (FIORICET) 00 every 8 Medica l 50-300-40 (eight) Branch mg per hours as capsule needed (Migraine) . pregabalin Yes [id number] 75mg Take 1 [facility] (LYRICA) 75 1-27 capsule by it y of mg capsule 00:00: mouth 2 [place] 00 (two) Medical times Branch daily. Butalbital- Yes [id number] 1{capsu Take 1 [facility] Acetaminoph 1-27 le} capsule by it y of en-Caff 00:00: mouth [place] (FIORICET) 00 every 8 Medica l 50-300-40 (eight) Branch mg per hours as capsule needed (Migraine) . pregabalin Yes [id number] 75mg Take 1 [facility] (LYRICA) 75 1-27 capsule by it y of mg capsule 00:00: mouth 2 [place] 00 (two) Medical times Branch daily. Butalbital- Yes [id number] 1{capsu Take 1 [facility] Acetaminoph 1-27 le} capsule by it y of en-Caff 00:00: mouth [place] (FIORICET) 00 every 8 Medica l 50-300-40 (eight) Branch mg per hours as capsule needed (Migraine) . pregabalin Yes [id number] 75mg Take 1 [facility] (LYRICA) 75 1-27 capsule by it y of mg capsule 00:00: mouth 2 [place] 00 (two) Medical times Branch daily. Butalbital- Yes [id number] 1{capsu Take 1 [facility] Acetaminoph 1-27 le} capsule by it y of en-Caff 00:00: mouth [place] (FIORICET) 00 every 8 Medica l 50-300-40 (eight) Branch mg per hours as capsule needed (Migraine) . pregabalin Yes [id number] 75mg Take 1 [facility] (LYRICA) 75 1-27 capsule by it y of mg capsule 00:00: mouth 2 [place] 00 (two) Medical times Branch daily. Butalbital- Yes [id number] 1{capsu Take 1 [facility] Acetaminoph 1-27 le} capsule by it y of en-Caff 00:00: mouth [place] (FIORICET) 00 every 8 Medica l 50-300-40 (eight) Branch mg per hours as capsule needed (Migraine) . pregabalin Yes [id number] 75mg Take 1 [facility] (LYRICA) 75 1-27 capsule by it y of mg capsule 00:00: mouth 2 [place] 00 (two) Medical times Branch daily. Butalbital- 2021- Yes [id number] 1{capsu Take 1 [facility] Acetaminoph 1-27 le} capsule by it y of en-Caff 00:00: mouth [place] (FIORICET) 00 every 8 Medica l 50-300-40 (eight) Branch mg per hours as capsule needed (Migraine) . pregabalin 2021- Yes [id number] 75mg Take 1 [facility] (LYRICA) 75 1-27 capsule by it y of mg capsule 00:00: mouth 2 [place] 00 (two) Medical times Branch daily. Butalbital- 2021- Yes [id number] 1{capsu Take 1 [facility] Acetaminoph 1-27 le} capsule by it y of en-Caff 00:00: mouth [place] (FIORICET) 00 every 8 Medica l 50-300-40 (eight) Branch mg per hours as capsule needed (Migraine) . pregabalin Yes [id number] 75mg Take 1 [facility] (LYRICA) 75 1-27 capsule by it y of mg capsule 00:00: mouth 2 [place] 00 (two) Medical times Branch daily. Butalbital- 2021- Yes [id number] 1{capsu Take 1 [facility] Acetaminoph 1-27 le} capsule by it y of en-Caff 00:00: mouth [place] (FIORICET) 00 every 8 Medica l 50-300-40 (eight) Branch mg per hours as capsule needed (Migraine) . pregabalin Yes [id number] 75mg Take 1 [facility] (LYRICA) 75 1-27 capsule by it y of mg capsule 00:00: mouth 2 [place] 00 (two) Medical times Branch daily. Butalbital- 2021- Yes [id number] 1{capsu Take 1 [facility] Acetaminoph 1-27 le} capsule by it y of en-Caff 00:00: mouth [place] (FIORICET) 00 every 8 Medica l 50-300-40 (eight) Branch mg per hours as capsule needed (Migraine) . pregabalin 2021-0 Yes [id number] 75mg Take 1 [facility] (LYRICA) 75 1-27 capsule by it y of mg capsule 00:00: mouth 2 [place] 00 (two) Medical times Branch daily. pregabalin 2021-0 Yes [id number] 75mg Take 1 [facility] (LYRICA) 75 1-27 capsule by it y of mg capsule 00:00: mouth 2 [place] 00 (two) Medical times Branch daily. pregabalin 2021-0 Yes [id number] 75mg Take 1 [facility] (LYRICA) 75 1-27 capsule by it y of mg capsule 00:00: mouth 2 [place] 00 (two) Medical times Branch daily. pregabalin Yes [id number] 75mg Take 1 [facility] (LYRICA) 75 1-27 capsule by it y of mg capsule 00:00: mouth 2 [place] 00 (two) Medical times Branch daily. pregabalin Yes [id number] 75mg Take 1 [facility] (LYRICA) 75 1-27 capsule by it y of mg capsule 00:00: mouth 2 [place] 00 (two) Medical times Branch daily. Butalbital- Yes [id number] 1{capsu Take 1 [facility] Acetaminoph 1-27 le} capsule by it y of en-Caff 00:00: mouth [place] (FIORICET) 00 every 8 Medica l 50-300-40 (eight) Branch mg per hours as capsule needed (Migraine) . pregabalin Yes [id number] 75mg Take 1 [facility] (LYRICA) 75 1-27 capsule by it y of mg capsule 00:00: mouth 2 [place] 00 (two) Medical times Branch daily. Butalbital- Yes [id number] 1{capsu Take 1 [facility] Acetaminoph 1-27 le} capsule by it y of en-Caff 00:00: mouth [place] (FIORICET) 00 every 8 Medica l 50-300-40 (eight) Branch mg per hours as capsule needed (Migraine) . pregabalin Yes [id number] 75mg Take 1 [facility] (LYRICA) 75 1-27 capsule by it y of mg capsule 00:00: mouth 2 [place] 00 (two) Medical times Branch daily. Butalbital- Yes [id number] 1{capsu Take 1 [facility] Acetaminoph 1-27 le} capsule by it y of en-Caff 00:00: mouth [place] (FIORICET) 00 every 8 Medica l 50-300-40 (eight) Branch mg per hours as capsule needed (Migraine) . pregabalin Yes [id number] 75mg Take 1 [facility] (LYRICA) 75 1-27 capsule by it y of mg capsule 00:00: mouth 2 [place] 00 (two) Medical times Branch daily. Butalbital- Yes [id number] 1{capsu Take 1 [facility] Acetaminoph 1-27 le} capsule by it y of en-Caff 00:00: mouth [place] (FIORICET) 00 every 8 Medica l 50-300-40 (eight) Branch mg per hours as capsule needed (Migraine) . pregabalin Yes [id number] 75mg Take 1 [facility] (LYRICA) 75 1-27 capsule by it y of mg capsule 00:00: mouth 2 [place] 00 (two) Medical times Branch daily. Butalbital- Yes [id number] 1{capsu Take 1 [facility] Acetaminoph 1-27 le} capsule by it y of en-Caff 00:00: mouth [place] (FIORICET) 00 every 8 Medica l 50-300-40 (eight) Branch mg per hours as capsule needed (Migraine) . pregabalin Yes [id number] 75mg Take 1 [facility] (LYRICA) 75 1-27 capsule by it y of mg capsule 00:00: mouth 2 [place] 00 (two) Medical times Branch daily. Butalbital- Yes [id number] 1{capsu Take 1 [facility] Acetaminoph 1-27 le} capsule by it y of en-Caff 00:00: mouth [place] (FIORICET) 00 every 8 Medica l 50-300-40 (eight) Branch mg per hours as capsule needed (Migraine) . pregabalin Yes [id number] 75mg Take 1 [facility] (LYRICA) 75 1-27 capsule by it y of mg capsule 00:00: mouth 2 [place] 00 (two) Medical times Branch daily. Butalbital- 2022- No [id number] 1{capsu Take 1 [facility] Acetaminoph 1-27 01-12 le} capsule by i ty of en-Caff 00:00: 00:00 mouth [place] (FIORICET) 00 :00 every 8 Medica l 50-300-40 (eight) Branch mg per hours as capsule needed (Migraine) . Nitrofurant Yes [id number] 100mg Take 1 [facility] oin&Nit. 1-01 capsule by ity o f Macrocryst 00:00: mouth [place] (MACROB[place] 00 (two) Medical 100 mg times Branch capsule daily. Nitrofurant 2022-0 Yes [id number] 100mg Take 1 [facility] oin&Nit. 1-01 capsule by ity o f Macrocryst 00:00: mouth [place] ([place] 00 (two) Medical 100 mg times Branch capsule daily. Nitrofurant 0 Yes [id number] 100mg Take 1 [facility] oin&Nit. 1-01 capsule by ity o f Macrocryst 00:00: mouth 2 [place] ([place]) 00 (two) Medical 100 mg times Branch capsule daily. Nitrofurant 0 Yes [id number] 100mg Take 1 [facility] oin&Nit. 1-01 capsule by ity o f Macrocryst 00:00: mouth 2 [place] ([place] 00 (two) Medical 100 mg times Branch capsule daily. Nitrofurant 0 Yes [id number] 100mg Take 1 [facility] oin&Nit. 1-01 capsule by ity o f Macrocryst 00:00: mouth 2 [place] ([place] 00 (two) Medical 100 mg times Branch capsule daily. Nitrofurant 0 Yes [id number] 100mg Take 1 [facility] oin&Nit. 1-01 capsule by ity o f Macrocryst 00:00: mouth 2 [place] ([place]) 00 (two) Medical 100 mg times Branch capsule daily. Nitrofurant 0 Yes [id number] 100mg Take 1 [facility] oin&Nit. 1-01 capsule by ity o f Macrocryst 00:00: mouth 2 [place] ([place]CR[place]) 00 (two) Medical 100 mg times Branch capsule daily. Nitrofurant 0 Yes [id number] 100mg Take 1 [facility] oin&Nit. 1-01 capsule by ity o f Macrocryst 00:00: mouth 2 [place] ([place]) 00 (two) Medical 100 mg times Branch capsule daily. Nitrofurant 2021-0 Yes [id number] 100mg Take 1 [facility] oin&Nit. 1-01 capsule by ity o f Macrocryst 00:00: mouth 2 [place] ([place]CR[place] 00 (two) Medical 100 mg times Branch capsule daily. Nitrofurant 2021-0 Yes [id number] 100mg Take 1 [facility] oin&Nit. 1-01 capsule by ity o f Macrocryst 00:00: mouth 2 [place] ([place]CR[place] 00 (two) Medical 100 mg times Branch capsule daily. Nitrofurant 2021-0 Yes [id number] 100mg Take 1 [facility] oin&Nit. 1-01 capsule by ity o f Macrocryst 00:00: mouth 2 [place] ([place] 00 (two) Medical 100 mg times Branch capsule daily. Nitrofurant 2021-0 Yes [id number] 100mg Take 1 [facility] oin&Nit. 1-01 capsule by ity o f Macrocryst 00:00: mouth 2 [place] ([place]CR[place] 00 (two) Medical 100 mg times Branch capsule daily. Nitrofurant 2021-0 Yes [id number] 100mg Take 1 [facility] oin&Nit. 1-01 capsule by ity o f Macrocryst 00:00: mouth 2 [place] ([place]CR[place] 00 (two) Medical 100 mg times Branch capsule daily. Nitrofurant 2021-0 Yes [id number] 100mg Take 1 [facility] oin&Nit. 1-01 capsule by ity o f Macrocryst 00:00: mouth 2 [place] ([place]CR[place]) 00 (two) Medical 100 mg times Branch capsule daily. Nitrofurant 2021-0 Yes [id number] 100mg Take 1 [facility] oin&Nit. 1-01 capsule by ity o f Macrocryst 00:00: mouth 2 [place] ([place]CR[place] 00 (two) Medical 100 mg times Branch capsule daily. Nitrofurant 2021-0 Yes [id number] 100mg Take 1 [facility] oin&Nit. 1-01 capsule by ity o f Macrocryst 00:00: mouth 2 [place] ([place]CR[place]) 00 (two) Medical 100 mg times Branch capsule daily. Nitrofurant 2021-0 Yes [id number] 100mg Take 1 [facility] oin&Nit. 1-01 capsule by ity o f Macrocryst 00:00: mouth 2 [place] ([place]) 00 (two) Medical 100 mg times Branch capsule daily. Nitrofurant 2021-0 Yes [id number] 100mg Take 1 [facility] oin&Nit. 1-01 capsule by ity o f Macrocryst 00:00: mouth 2 [place] ([place] 00 (two) Medical 100 mg times Branch capsule daily. Nitrofurant 2021-0 Yes [id number] 100mg Take 1 [facility] oin&Nit. 1-01 capsule by ity o f Macrocryst 00:00: mouth 2 [place] ([place] 00 (two) Medical 100 mg times Branch capsule daily. Nitrofurant 2021-0 Yes [id number] 100mg Take 1 [facility] oin&Nit. 1-01 capsule by ity o f Macrocryst 00:00: mouth 2 [place] ([place]CR[place]) 00 (two) Medical 100 mg times Branch capsule daily. Nitrofurant 2021-0 Yes [id number] 100mg Take 1 [facility] oin&Nit. 1-01 capsule by ity o f Macrocryst 00:00: mouth 2 [place] ([place] 00 (two) Medical 100 mg times Branch capsule daily. Nitrofurant 2021-0 Yes [id number] 100mg Take 1 [facility] oin&Nit. 1-01 capsule by ity o f Macrocryst 00:00: mouth 2 [place] ([place]CR[place] 00 (two) Medical 100 mg times Branch capsule daily. Nitrofurant 2021-0 Yes [id number] 100mg Take 1 [facility] oin&Nit. 1-01 capsule by ity o f Macrocryst 00:00: mouth 2 [place] ([place]CR[place] 00 (two) Medical 100 mg times Branch capsule daily. Nitrofurant 2021-0 Yes [id number] 100mg Take 1 [facility] oin&Nit. 1-01 capsule by ity o f Macrocryst 00:00: mouth 2 [place] ([place]CR[place] 00 (two) Medical 100 mg times Branch capsule daily. Nitrofurant 2021-0 Yes [id number] 100mg Take 1 [facility] oin&Nit. 1-01 capsule by ity o f Macrocryst 00:00: mouth 2 [place] ([place]CR[place] 00 (two) Medical 100 mg times Branch capsule daily. Nitrofurant 2021-0 Yes [id number] 100mg Take 1 [facility] oin&Nit. 1-01 capsule by ity o f Macrocryst 00:00: mouth 2 [place] ([place]CR[place] 00 (two) Medical 100 mg times Branch capsule daily. Nitrofurant 2022-0 Yes [id number] 100mg Take 1 [facility] oin&Nit. 1-01 capsule by ity o f [place]rocryst 00:00: mouth 2 [place] ([place] 00 (two) Medical 100 mg times Branch capsule daily. Nitrofurant 0 Yes [id number] 100mg Take 1 [facility] oin&Nit. 1-01 capsule by ity o f [place]rocryst 00:00: mouth 2 [place] ([place] 00 (two) Medical 100 mg times Branch capsule daily. Nitrofurant 0 Yes [id number] 100mg Take 1 [facility] oin&Nit. 1-01 capsule by ity o f [place]rocryst 00:00: mouth 2 [place] ([place]CR[place] 00 (two) Medical 100 mg times Branch capsule daily. Nitrofurant 0 Yes [id number] 100mg Take 1 [facility] oin&Nit. 1-01 capsule by ity o f [place]rocryst 00:00: mouth 2 [place] ([place] 00 (two) Medical 100 mg times Branch capsule daily. Nitrofurant 0 Yes [id number] 100mg Take 1 [facility] oin&Nit. 1-01 capsule by ity o [place] ([place]CR[place] 00 (two) Medical 100 mg times Branch capsule daily. Nitrofurant 0 Yes [id number] 100mg Take 1 [facility] oin&Nit. 1-01 capsule by ity o [place] 00:[place]: [place] (MACROBID[place] 00 (two) Medical 100 mg times Branch capsule daily. Nitrofurant 0 Yes [id number] 100mg Take 1 [facility] oin&Nit. 1-01 capsule by ity o [place] 00:[place]: [place] (MACROBID[place] 00 (two) Medical 100 mg times Branch capsule daily. Nitrofurant 2021-0 Yes [id number] 100mg Take 1 [facility] oin&Nit. 1-01 capsule by ity o f [place] 00:[place]: mouth [place] (MACROBID[place] 00 (two) Medical 100 mg times Branch capsule daily. Nitrofurant 2021-0 Yes [id number] 100mg Take 1 [facility] oin&Nit. 1-01 capsule by ity o [place] 00:[place]: mouth [place] (MACROBID[place] 00 (two) Medical 100 mg times Branch capsule daily. Nitrofurant 2021-0 Yes [id number] 100mg Take 1 [facility] oin&Nit. 1-01 capsule by ity o f [place] 00:[place]: mouth [place] (MACROBID[place] 00 (two) Medical 100 mg times Branch capsule daily. Nitrofurant 2021-0 Yes [id number] 100mg Take 1 [facility] oin&Nit. 1-01 capsule by ity o [place] 00:[place]: mouth [place] ([place]CROB[place] 00 (two) Medical 100 mg times Branch capsule daily. Nitrofurant 2021-0 Yes [id number] 100mg Take 1 [facility] oin&Nit. 1-01 capsule by ity o f [place] 00:[place]: mouth [place] (MACROBID[place] 00 (two) Medical 100 mg times Branch capsule daily. Nitrofurant 2021-0 Yes [id number] 100mg Take 1 [facility] oin&Nit. 1-01 capsule by ity o f [place] 00:[place]: mouth [place] (MACROBID[place] 00 (two) Medical 100 mg times Branch capsule daily. Nitrofurant 2021-0 Yes [id number] 100mg Take 1 [facility] oin&Nit. 1-01 capsule by ity o f [place] 00:[place]: mouth [place] (MACROBID[place] 00 (two) Medical 100 mg times Branch capsule daily. Nitrofurant 2021-0 Yes [id number] 100mg Take 1 [facility] oin&Nit. 1-01 capsule by ity o f [place] 00:[place]: mouth [place] (MACROBID[place] 00 (two) Medical 100 mg times Branch capsule daily. Nitrofurant 2021-0 Yes [id number] 100mg Take 1 [facility] oin&Nit. 1-01 capsule by ity o f [place] 00:00: mouth 2 [place] (MACROBID[place] 00 (two) Medical 100 mg times Branch capsule daily. Nitrofurant 2021-0 Yes [id number] 100mg Take 1 [facility] oin&Nit. 1-01 capsule by ity o f [place] 00:[place]: mouth [place] (MACROBID[place] 00 (two) Medical 100 mg times Branch capsule daily. AMITRIPTYLI 2020-07- No [id number] TAKE 1 [facility] [place] 100 mg 08-05 05-10 06 TABLET BY ity of tablet 00:00: 00:00 MOUTH [place] 00 :00 EVERYDAY Medical AT BEDTIME Branch AMITRIPTYLI 2020-07- No [id number] TAKE 1 [facility] [place] 100 mg 24 05-10 06 TABLET BY ity of tablet 00:00: 00:00 MOUTH [place] 00 :00 EVERYDAY Medical AT BEDTIME Branch Insulin Asp 2020-07- No [id number] 30U inject 30 Univers Prt-Insulin -24 04-29 Units ity of Aspart 00:00: 00:00 under the [place] (NOVOLOG 00 :00 skin 2 Medical MIX 70-30) (two) Branch 100 unit/mL times (70-30) daily with injection meals. E11.65 metFORMIN 2020-07- No [id number] 1000mg Take 1 [facility] 1,000 mg 08-05-29 tablet by ity o f tablet 00:00: 00:00 mouth 2 [place] 00 :00 (two) Medical times Branch daily with meals. SITagliptin 2020-07- No [id number] 100mg Take 1 Univers (JANUVIA) 08-05-29 tablet by ity of 100 mg 00:00: 00:00 mouth [place] tablet 00 :00 daily. Medical Branch Insulin Asp 2020-07- No [id number] 30U inject 30 [facility] Prt-Insulin 08-05 04-29 Units ity of Aspart 00:00: 00:00 under the [place] (NOVOLOG 00 :00 skin 2 Medical MIX 70-30) (two) Branch 100 unit/mL times (70-30) daily with injection meals. E11.65 metFORMIN 2020-07- No [id number] 1000mg Take 1 [facility] 1,000 mg -24 04-29 tablet by ity o f tablet 00:00: 00:00 mouth 2 [place] 00 :00 (two) Medical times Branch daily with meals. SITagliptin 2020-07- No [id number] 100mg Take 1 Univers (JANUVIA) -24 04-29 tablet by ity of 100 mg 00:00: 00:00 mouth [place] tablet 00 :00 daily. Medical Branch OMEPRAZOLE 2020-07- No [id number] TAKE 1 [facility] 40 mg 07-24 05-10 CAPSULE BY ity of capsule 00:00: 00:00 MOUTH [place] 00 :00 EVERY DAY Medical Branch OMEPRAZOLE 2020-07- No [id number] TAKE 1 [facility] 40 mg -12 05-10 CAPSULE BY ity of capsule 00:00: 00:00 MOUTH [place] 00 :00 EVERY DAY Medical Branch Miscellaneo 2020-07 Yes Standard [facility] 07-16 rollatorR5 ity of Supply Misc 00:00: 5/W19.XXXS [place] 00 /M79.604/R Medical 06.02/I50. Branch 32/I51.7/E 11.3511: Use daily for ambulation /fall precaution Miscellaneo 2020-07 Yes [facility] 07-16 rollatorR5 ity of Supply Misc 00:00: 5/W19.XXXS [place] 00 /M79.604/R Medical 06.02/I50. Branch 32/I51.7/E 11.3511: Use daily for ambulation /fall precaution Miscellaneo 2020-07 Yes [facility] 07-16 rollatorR5 ity of Supply Misc 00:00: 5/W19.XXXS [place] 00 /M79.604/R Medical 06.02/I50. Branch 32/I51.7/E 11.3511: Use daily for ambulation /fall precaution Miscellaneo 2020-07 Yes [facility] 07-16 rollatorR5 ity of Supply Misc 00:00: 5/W19.XXXS [place] 00 /M79.604/R Medical 06.02/I50. Branch 32/I51.7/E 11.3511: Use daily for ambulation /fall precaution Miscellaneo 2020-07 Yes [facility] 07-16 rollatorR5 ity of Supply Misc 00:00: 5/W19.XXXS [place] 00 /M79.604/R Medical 06.02/I50. Branch 32/I51.7/E 11.3511: Use daily for ambulation /fall precaution Miscellaneo 2020-07 Yes Standard [facility] 07-16 rollatorR5 ity of Supply Misc 00:00: 5/W19.XXXS [place] 00 /M79.604/R Medical 06.02/I50. Branch 32/I51.7/E 11.3511: Use daily for ambulation /fall precaution Miscellaneo 2020- Yes Standard [facility] 07-16 rollatorR5 ity of Supply Misc 00:00: 5/W19.XXXS [place] 00 /M79.604/R Medical 06.02/I50. Branch 32/I51.7/E 11.3511: Use daily for ambulation /fall precaution Miscellaneo 2020-07 Yes Standard [facility] 07-16 rollatorR5 ity of Supply Misc 00:00: 5/W19.XXXS [place] 00 /M79.604/R Medical 06.02/I50. Branch 32/I51.7/E 11.3511: Use daily for ambulation /fall precaution Miscellaneo 2020-07 Yes Standard [facility] 07-16 rollatorR5 ity of Supply Misc 00:00: 5/W19.XXXS [place] 00 /M79.604/R Medical 06.02/I50. Branch 32/I51.7/E 11.3511: Use daily for ambulation /fall precaution Miscellaneo 2020-07 Yes Standard [facility] 07-16 rollatorR5 ity of Supply Misc 00:00: 5/W19.XXXS [place] 00 /M79.604/R Medical 06.02/I50. Branch 32/I51.7/E 11.3511: Use daily for ambulation /fall precaution Miscellaneo 2020-07 Yes Standard [facility] 07-16 rollatorR5 ity of Supply Misc 00:00: 5/W19.XXXS [place] 00 /M79.604/R Medical 06.02/I50. Branch 32/I51.7/E 11.3511: Use daily for ambulation /fall precaution Miscellaneo 2020-07 Yes Standard [facility] 07-16 rollatorR5 ity of Supply Misc 00:00: 5/W19.XXXS [place] 00 /M79.604/R Medical 06.02/I50. Branch 32/I51.7/E 11.3511: Use daily for ambulation /fall precaution Miscellaneo 2020- Yes Standard [facility] 07-16 rollatorR5 ity of Supply Misc 00:00: 5/W19.XXXS [place] 00 /M79.604/R Medical 06.02/I50. Branch 32/I51.7/E 11.3511: Use daily for ambulation /fall precaution Miscellaneo 2020-07 Yes Standard [facility] 07-16 rollatorR5 ity of Supply Misc 00:00: 5/W19.XXXS [place] 00 /M79.604/R Medical 06.02/I50. Branch 32/I51.7/E 11.3511: Use daily for ambulation /fall precaution Miscellaneo 2020-07 Yes Standard [facility] 07-16 rollatorR5 ity of Supply Misc 00:00: 5/W19.XXXS [place] 00 /M79.604/R Medical 06.02/I50. Branch 32/I51.7/E 11.3511: Use daily for ambulation /fall precaution Miscellaneo 2020- Yes Standard [facility] 07-16 rollatorR5 ity of Supply Misc 00:00: 5/W19.XXXS [place] 00 /M79.604/R Medical 06.02/I50. Branch 32/I51.7/E 11.3511: Use daily for ambulation /fall precaution Miscellaneo 2020-07 Yes Standard [facility] 07-16 rollatorR5 ity of Supply Misc 00:00: 5/W19.XXXS [place] 00 /M79.604/R Medical 06.02/I50. Branch 32/I51.7/E 11.3511: Use daily for ambulation /fall precaution Miscellaneo 2020-07 Yes Standard [facility] 07-16 rollatorR5 ity of Supply Misc 00:00: 5/W19.XXXS [place] 00 /M79.604/R Medical 06.02/I50. Branch 32/I51.7/E 11.3511: Use daily for ambulation /fall precaution Miscellaneo 2020-07 Yes Standard [facility] 07-16 rollatorR5 ity of Supply Misc 00:00: 5/W19.XXXS [place] 00 /M79.604/R Medical 06.02/I50. Branch 32/I51.7/E 11.3511: Use daily for ambulation /fall precaution Miscellaneo 2020-07 Yes Standard [facility] 07-16 rollatorR5 ity of Supply Misc 00:00: 5/W19.XXXS [place] 00 /M79.604/R Medical 06.02/I50. Branch 32/I51.7/E 11.3511: Use daily for ambulation /fall precaution Miscellaneo 2020-07 Yes [facility] 07-16 rollatorR5 ity of Supply Misc 00:00: 5/W19.XXXS [place] 00 /M79.604/R Medical 06.02/I50. Branch 32/I51.7/E 11.3511: Use daily for ambulation /fall precaution Miscellaneo 2020-07 Yes Standard [facility] 07-16 rollatorR5 ity of Supply Misc 00:00: 5/W19.XXXS [place] 00 /M79.604/R Medical 06.02/I50. Branch 32/I51.7/E 11.3511: Use daily for ambulation /fall precaution Miscellaneo 2020-07 Yes Standard [facility] 07-16 rollatorR5 ity of Supply Misc 00:00: 5/W19.XXXS [place] 00 /M79.604/R Medical 06.02/I50. Branch 32/I51.7/E 11.3511: Use daily for ambulation /fall precaution Miscellaneo 2020-07 Yes Standard [facility] 07-16 rollatorR5 ity of Supply Misc 00:00: 5/W19.XXXS [place] 00 /M79.604/R Medical 06.02/I50. Branch 32/I51.7/E 11.3511: Use daily for ambulation /fall precaution Miscellaneo 2020-07 Yes Standard [facility] 07-16 rollatorR5 ity of Supply Misc 00:00: 5/W19.XXXS [place] 00 /M79.604/R Medical 06.02/I50. Branch 32/I51.7/E 11.3511: Use daily for ambulation /fall precaution Miscellaneo 2020-07 Yes Standard [facility] 07-16 rollatorR5 ity of Supply Misc 00:00: 5/W19.XXXS [place] 00 /M79.604/R Medical 06.02/I50. Branch 32/I51.7/E 11.3511: Use daily for ambulation /fall precaution Miscellaneo 2020-07 Yes [facility] 07-16 rollatorR5 ity of Supply Misc 00:00: 5/W19.XXXS [place] 00 /M79.604/R Medical 06.02/I50. Branch 32/I51.7/E 11.3511: Use daily for ambulation /fall precaution Miscellaneo 2020-07 Yes Standard [facility] 07-16 rollatorR5 ity of Supply Misc 00:00: 5/W19.XXXS [place] 00 /M79.604/R Medical 06.02/I50. Branch 32/I51.7/E 11.3511: Use daily for ambulation /fall precaution Miscellaneo 2020-07 Yes Standard [facility] 07-16 rollatorR5 ity of Supply Misc 00:00: 5/W19.XXXS [place] 00 /M79.604/R Medical 06.02/I50. Branch 32/I51.7/E 11.3511: Use daily for ambulation /fall precaution Miscellaneo 2020- Yes Standard [facility] 07-16 rollatorR5 ity of Supply Misc 00:00: 5/W19.XXXS [place] 00 /M79.604/R Medical 06.02/I50. Branch 32/I51.7/E 11.3511: Use daily for ambulation /fall precaution Miscellaneo 2020-07 Yes Standard [facility] 07-16 rollatorR5 ity of Supply Misc 00:00: 5/W19.XXXS [place] 00 /M79.604/R Medical 06.02/I50. Branch 32/I51.7/E 11.3511: Use daily for ambulation /fall precaution Miscellaneo 2020- Yes Standard [facility] 07-16 rollatorR5 ity of Supply Misc 00:00: 5/W19.XXXS [place] 00 /M79.604/R Medical 06.02/I50. Branch 32/I51.7/E 11.3511: Use daily for ambulation /fall precaution Miscellaneo 2020-07 Yes Standard [facility] 07-16 rollatorR5 ity of Supply Misc 00:00: 5/W19.XXXS [place] 00 /M79.604/R Medical 06.02/I50. Branch 32/I51.7/E 11.3511: Use daily for ambulation /fall precaution Miscellaneo 2020-07 Yes Standard [facility] 07-16 rollatorR5 ity of Supply Misc 00:00: 5/W19.XXXS [place] 00 /M79.604/R Medical 06.02/I50. Branch 32/I51.7/E 11.3511: Use daily for ambulation /fall precaution Miscellaneo 2020-07 Yes Standard [facility] 07-16 rollatorR5 ity of Supply Misc 00:00: 5/W19.XXXS [place] 00 /M79.604/R Medical 06.02/I50. Branch 32/I51.7/E 11.3511: Use daily for ambulation /fall precaution Miscellaneo 2020-07 Yes Standard [facility] 07-16 rollatorR5 ity of Supply Misc 00:00: 5/W19.XXXS [place] 00 /M79.604/R Medical 06.02/I50. Branch 32/I51.7/E 11.3511: Use daily for ambulation /fall precaution Miscellaneo 2020-07 Yes Standard [facility] 07-16 rollatorR5 ity of Supply Misc 00:00: 5/W19.XXXS [place] 00 /M79.604/R Medical 06.02/I50. Branch 32/I51.7/E 11.3511: Use daily for ambulation /fall precaution Miscellaneo 2020- Yes Standard [facility] 07-16 rollatorR5 ity of Supply Misc 00:00: 5/W19.XXXS [place] 00 /M79.604/R Medical 06.02/I50. Branch 32/I51.7/E 11.3511: Use daily for ambulation /fall precaution Miscellaneo 2020-07 Yes Standard [facility] 07-16 rollatorR5 ity of Supply Misc 00:00: 5/W19.XXXS [place] 00 /M79.604/R Medical 06.02/I50. Branch 32/I51.7/E 11.3511: Use daily for ambulation /fall precaution Miscellaneo 2020-07 Yes Standard [facility] 07-16 rollatorR5 ity of Supply Misc 00:00: 5/W19.XXXS [place] 00 /M79.604/R Medical 06.02/I50. Branch 32/I51.7/E 11.3511: Use daily for ambulation /fall precaution Miscellaneo 2020- Yes Standard [facility] 07-16 rollatorR5 ity of Supply Misc 00:00: 5/W19.XXXS [place] 00 /M79.604/R Medical 06.02/I50. Branch 32/I51.7/E 11.3511: Use daily for ambulation /fall precaution Miscellaneo 2020-07 Yes Standard [facility] 07-16 rollatorR5 ity of Supply Misc 00:00: 5/W19.XXXS [place] 00 /M79.604/R Medical 06.02/I50. Branch 32/I51.7/E 11.3511: Use daily for ambulation /fall precaution Miscellaneo 2020-07 Yes Standard [facility] 07-16 rollatorR5 ity of Supply Misc 00:00: [...] approval) [place] 2020-07 Yes R55/W19.XX Un ann maire (ULTRA-LIGH 1-03 XS/M79.604 it y of T [...] approval) [place] 2020-07 Yes R55/W19.XX Un ann mraie (ULTRA-LIGH 1-03 XS/M79.604 it y of T [...] (brand pending insurance approval) Miscellaneo 2020-07 Yes [id number] 0 - Univers Medical 0-20 Dispense ity o f Supply Kit 00:00: blood pressure Medical cuff (any Branch brand), take BP at home BID atorvastati 2020-07 Yes [id number] 40mg Take 1 Univers n 40 mg 0-20 tablet by ity of tablet 00:00: mouth at [place] 00 bedtime. Medical Branch mupirocin 2 2020-07 Yes [id number] Apply to Univers % ointment 0-20 area(s) 3 ity of 00:00: (three) [place] [address] times Medical daily. Branch Miscellaneo 2020-07 Yes [id number] I10 - [facility] Medical 0-20 Dispense ity o f Supply Kit 00:00: blood 00 pressure Medical cuff (any Branch brand), take BP at home BID mupirocin 2 2020-07 Yes [id number] Apply to Univers % ointment 0-20 area(s) 3 ity of 00:00: (three) [place] 00 times Medical daily. Branch Miscellaneo 2020-07 Yes [id number] I10 - Univers us Medical 0-20 Dispense ity o f Supply Kit 00:00: blood pressure Medical cuff (any Branch brand), take BP at home BID mupirocin 2 2020-07 Yes [id number] Apply to Univers % ointment 0-20 area(s) 3 ity of 00:00: (three) [place] 00 times Medical daily. Branch Miscellaneo 2020-07 Yes [id number] I10 - Univers us Medical 0-20 Dispense ity o f Supply Kit 00:00: blood pressure Medical cuff (any Branch brand), take BP at home BID mupirocin 2 2020-07 Yes [id number] Apply to Univers % ointment 0-20 area(s) 3 ity of 00:00: (three) [place] 00 times Medical daily. Branch Miscellaneo 2020-07 Yes [id number] I10 - Univers us Medical 0-20 Dispense ity o f Supply Kit 00:00: blood pressure Medical cuff (any Branch brand), take BP at home BID mupirocin 2 2020-07 Yes [id number] Apply to Univers % ointment 0-20 area(s) 3 ity of 00:00: (three) [place] 00 times Medical daily. Branch Miscellaneo 2020-07 Yes [id number] I10 - Univers us Medical 0-20 Dispense ity o f Supply Kit 00:00: blood [place] 00 pressure Medical cuff (any Branch brand), take BP at home BID mupirocin 2 2020-07 Yes [id number] Apply to Univers % ointment 0-20 area(s) 3 ity of 00:00: (three) [place] 00 times Medical daily. Branch Miscellaneo 2020-07 Yes [id number] I10 - [facility] us Medical 0-20 Dispense ity o f Supply Kit 00:00: blood [place] 00 pressure Medical cuff (any Branch brand), take BP at home BID mupirocin 2 2020-07 Yes [id number] Apply to Univers % ointment 0-20 area(s) 3 ity of 00:00: (three) [place] 00 times Medical daily. Branch Miscellaneo 2020-07 Yes [id number] I10 - Univers us Medical 0-20 Dispense ity o f Supply Kit 00:00: blood [place] 00 pressure Medical cuff (any Branch brand), take BP at home BID mupirocin 2 2020-07 Yes [id number] Apply to Univers % ointment 0-20 area(s) 3 ity of 00:00: (three) [place] 00 times Medical daily. Branch Miscellaneo 2020-07 Yes [id number] I10 - [facility] us Medical 0-20 Dispense ity o f Supply Kit 00:00: blood [place] 00 pressure Medical cuff (any Branch brand), take BP at home BID mupirocin 2 2020-07 Yes [id number] Apply to Univers % ointment 0-20 area(s) 3 ity of 00:00: (three) [place] 00 times Medical daily. Branch Miscellaneo 2020-07 Yes [id number] I10 - [facility] us Medical 0-20 Dispense ity o f Supply Kit 00:00: blood [place] 00 pressure Medical cuff (any Branch brand), take BP at home BID mupirocin 2 2020-07 Yes [id number] Apply to Univers % ointment 0-20 area(s) 3 ity of 00:00: (three) [place] 00 times Medical daily. Branch Miscellaneo 2020-07 Yes [id number] I10 - [facility] us Medical 0-20 Dispense ity o f Supply Kit 00:00: blood [place] 00 pressure Medical cuff (any Branch brand), take BP at home BID mupirocin 2 2020-07 Yes [id number] Apply to Univers % ointment 0-20 area(s) 3 ity of 00:00: (three) [place] 00 times Medical daily. Branch Miscellaneo 2020-07 Yes [id number] I10 - [facility] us Medical 0-20 Dispense ity o f Supply Kit 00:00: blood [place] 00 pressure Medical cuff (any Branch brand), take BP at home BID mupirocin 2 2020-07 Yes [id number] Apply to Univers % ointment 0-20 area(s) 3 ity of 00:00: (three) [place] 00 times Medical daily. Branch Miscellaneo 2020-07 Yes [id number] I10 - [facility] us Medical 0-20 Dispense ity o f Supply Kit 00:00: blood [place] 00 pressure Medical cuff (any Branch brand), take BP at home BID mupirocin 2 2020-07 Yes [id number] Apply to Univers % ointment 0-20 area(s) 3 ity of 00:00: (three) [place] 00 times Medical daily. Branch Miscellaneo 2020-07 Yes [id number] I10 - [facility] us Medical 0-20 Dispense ity o f Supply Kit 00:00: blood 00 pressure Medical cuff (any Branch brand), take BP at home BID mupirocin 2 2020-07 Yes [id number] Apply to Univers % ointment 0-20 area(s) 3 ity of 00:00: (three) [place] 00 times Medical daily. Branch Miscellaneo 2020-07 Yes [id number] I10 - [facility] us Medical 0-20 Dispense ity o f Supply Kit 00:00: blood 00 pressure Medical cuff (any Branch brand), take BP at home BID mupirocin 2 2020-07 Yes [id number] Apply to Univers % ointment 0-20 area(s) 3 ity of 00:00: (three) [place] 00 times Medical daily. Branch Miscellaneo 2020-07 Yes [id number] I10 - [facility] us Medical 0-20 Dispense ity o f Supply Kit 00:00: blood 00 pressure Medical cuff (any Branch brand), take BP at home BID mupirocin 2 2020-07 Yes [id number] Apply to Univers % ointment 0-20 area(s) 3 ity of 00:00: (three) [place] 00 times Medical daily. Branch Miscellaneo 2020-07 Yes [id number] I10 - [facility] us Medical 0-20 Dispense ity o f Supply Kit 00:00: blood [place] 00 pressure Medical cuff (any Branch brand), take BP at home BID mupirocin 2 2020-07 Yes [id number] Apply to Univers % ointment 0-20 area(s) 3 ity of 00:00: (three) [place] 00 times Medical daily. Branch Miscellaneo 2020-07 Yes [id number] I10 - [facility] us Medical 0-20 Dispense ity o f Supply Kit 00:00: blood 00 pressure Medical cuff (any Branch brand), take BP at home BID mupirocin 2 2020-07 Yes [id number] Apply to Univers % ointment 0-20 area(s) 3 ity of 00:00: (three) [place] 00 times Medical daily. Branch Miscellaneo 2020-07 Yes [id number] I10 - [facility] us Medical 0-20 Dispense ity o f Supply Kit 00:00: blood 00 pressure Medical cuff (any Branch brand), take BP at home BID mupirocin 2 2020-07 Yes [id number] Apply to Univers % ointment 0-20 area(s) 3 ity of 00:00: (three) [place] 00 times Medical daily. Branch Miscellaneo 2020-07 Yes [id number] I10 - [facility] us Medical 0-20 Dispense ity o f Supply Kit 00:00: blood 00 pressure Medical cuff (any Branch brand), take BP at home BID mupirocin 2 2020-07 Yes [id number] Apply to Univers % ointment 0-20 area(s) 3 ity of 00:00: (three) [place] 00 times Medical daily. Branch Miscellaneo 2020-07 Yes [id number] I10 - [facility] us Medical 0-20 Dispense ity o f Supply Kit 00:00: blood 00 pressure Medical cuff (any Branch brand), take BP at home BID mupirocin 2 2020-07 Yes [id number] Apply to Univers % ointment 0-20 area(s) 3 ity of 00:00: (three) [place] 00 times Medical daily. Branch Miscellaneo 2020-07 Yes [id number] I10 - [facility] us Medical 0-20 Dispense ity o f Supply Kit 00:00: blood [place] 00 pressure Medical cuff (any Branch brand), take BP at home BID mupirocin 2 2020-07 Yes [id number] Apply to Univers % ointment 0-20 area(s) 3 ity of 00:00: (three) [place] 00 times Medical daily. Branch Miscellaneo 2020-07 Yes [id number] I10 - [facility] us Medical 0-20 Dispense ity o f Supply Kit 00:00: blood [place] 00 pressure Medical cuff (any Branch brand), take BP at home BID mupirocin 2 2020-07 Yes [id number] Apply to Univers % ointment 0-20 area(s) 3 ity of 00:00: (three) [place] 00 times Medical daily. Branch Miscellaneo 2020-07 Yes [id number] I10 - [facility] us Medical 0-20 Dispense ity o f Supply Kit 00:00: blood [place] 00 pressure Medical cuff (any Branch brand), take BP at home BID mupirocin 2 2020-07 Yes [id number] Apply to Univers % ointment 0-20 area(s) 3 ity of 00:00: (three) [place] 00 times Medical daily. Branch Miscellaneo 2020-07 Yes [id number] I10 - [facility] us Medical 0-20 Dispense ity o f Supply Kit 00:00: blood [place] 00 pressure Medical cuff (any Branch brand), take BP at home BID mupirocin 2 2020-07 Yes [id number] Apply to Univers % ointment 0-20 area(s) 3 ity of 00:00: (three) [place] 00 times Medical daily. Branch Miscellaneo 2020-07 Yes [id number] I10 - [facility] us Medical 0-20 Dispense ity o f Supply Kit 00:00: blood [place] 00 pressure Medical cuff (any Branch brand), take BP at home BID mupirocin 2 2020-07 Yes [id number] Apply to Univers % ointment 0-20 area(s) 3 ity of 00:00: (three) [place] 00 times Medical daily. Branch Miscellaneo 2020-07 Yes [id number] I10 - [facility] us Medical 0-20 Dispense ity o f Supply Kit 00:00: blood [place] 00 pressure Medical cuff (any Branch brand), take BP at home BID mupirocin 2 2020-07 Yes [id number] Apply to Univers % ointment 0-20 area(s) 3 ity of 00:00: (three) [place] 00 times Medical daily. Branch Miscellaneo 2020-07 Yes [id number] I10 - [facility] us Medical 0-20 Dispense ity o f Supply Kit 00:00: blood [place] 00 pressure Medical cuff (any Branch brand), take BP at home BID mupirocin 2 2020-07 Yes [id number] Apply to Univers % ointment 0-20 area(s) 3 ity of 00:00: (three) [place] 00 times Medical daily. Branch Miscellaneo 2020-07 Yes [id number] I10 - [facility] us Medical 0-20 Dispense ity o f Supply Kit 00:00: blood 00 pressure Medical cuff (any Branch brand), take BP at home BID mupirocin 2 2020-07 Yes [id number] Apply to Univers % ointment 0-20 area(s) 3 ity of 00:00: (three) [place] 00 times Medical daily. Branch Miscellaneo 2020-07 Yes [id number] I10 - [facility] us Medical 0-20 Dispense ity o f Supply Kit 00:00: blood pressure Medical cuff (any Branch brand), take BP at home BID mupirocin 2 2020-07 Yes [id number] Apply to Univers % ointment 0-20 area(s) 3 ity of 00:00: (three) [place] 00 times Medical daily. Branch Miscellaneo 2020-07 Yes [id number] I10 - [facility] us Medical 0-20 Dispense ity o f Supply Kit 00:00: blood pressure Medical cuff (any Branch brand), take BP at home BID mupirocin 2 2020-07 Yes [id number] Apply to Univers % ointment 0-20 area(s) 3 ity of 00:00: (three) [place] 00 times Medical daily. Branch Miscellaneo 2020-07 Yes [id number] I10 - [facility] us Medical 0-20 Dispense ity o f Supply Kit 00:00: blood 00 pressure Medical cuff (any Branch brand), take BP at home BID mupirocin 2 2020-07 Yes [id number] Apply to Univers % ointment 0-20 area(s) 3 ity of 00:00: (three) [place] 00 times Medical daily. Branch Miscellaneo 2020-07 Yes [id number] I10 - [facility] 0-20 Dispense ity o f Supply Kit 00:00: blood [place] 00 pressure Medical cuff (any Branch brand), take BP at home BID mupirocin 2 2020-07 Yes [id number] Apply to [facility] % ointment 0-20 area(s) 3 ity of 00:00: (three) [place] 00 times Medical daily. Branch Miscellaneo 2020- Yes [id number] I10 - [facility] 0-20 Dispense ity o f Supply Kit 00:00: blood 00 pressure Medical cuff (any Branch brand), take BP at home BID mupirocin 2 2020-07 Yes [id number] Apply to [facility] % ointment 0-20 area(s) 3 ity of 00:00: (three) [place] 00 times Medical daily. Branch Miscellaneo 2020-07 Yes [id number] I10 - [facility] 0-20 Dispense ity o f Supply Kit 00:00: blood 00 pressure Medical cuff (any Branch brand), take BP at home BID mupirocin 2 2020-07 Yes [id number] Apply to [facility] % ointment 0-20 area(s) 3 ity of 00:00: (three) [place] 00 times Medical daily. Branch Miscellaneo 2020- Yes [id number] I10 - [facility] 0-20 Dispense ity o f Supply Kit 00:00: blood pressure Medical cuff (any Branch brand), take BP at home BID mupirocin 2 2020-07 Yes [id number] Apply to [facility] % ointment 0-20 area(s) 3 ity of 00:00: (three) [place] 00 times Medical daily. Branch Miscellaneo 2020- Yes [id number] I10 - [facility] 0-20 Dispense ity o f Supply Kit 00:00: blood [place] 00 pressure Medical cuff (any Branch brand), take BP at home BID mupirocin 2 2020-07 Yes [id number] Apply to [facility] % ointment 0-20 area(s) 3 ity of 00:00: (three) [place] 00 times Medical daily. Branch Miscellaneo 2020- Yes [id number] I10 - [facility] 0-20 Dispense ity o f Supply Kit 00:00: blood [place] 00 pressure Medical cuff (any Branch brand), take BP at home BID mupirocin 2 2020-07 Yes [id number] Apply to [facility] % ointment 0-20 area(s) 3 ity of 00:00: (three) [place] 00 times Medical daily. Branch Miscellaneo 2020-07 Yes [id number] I10 - [facility] 0-20 Dispense ity o f Supply Kit 00:00: blood [place] 00 pressure Medical cuff (any Branch brand), take BP at home BID mupirocin 2 2020-07 Yes [id number] Apply to [facility] % ointment 0-20 area(s) 3 ity of 00:00: (three) [place] 00 times Medical daily. Branch Miscellaneo 2020-07 Yes [id number] I10 - [facility] 0-20 Dispense ity o f Supply Kit 00:00: blood 00 pressure Medical cuff (any Branch brand), take BP at home BID mupirocin 2 2020-07 Yes [id number] Apply to [facility] % ointment 0-20 area(s) 3 ity of 00:00: (three) [place] 00 times Medical daily. Branch Miscellaneo 2020-07 Yes [id number] I10 - [facility] 0-20 Dispense ity o f Supply Kit 00:00: blood pressure Medical cuff (any Branch brand), take BP at home BID mupirocin 2 2020-07 Yes [id number] Apply to [facility] % ointment 0-20 area(s) 3 ity of 00:00: (three) [place] 00 times Medical daily. Branch Miscellaneo 2020-07 Yes [id number] I10 - [facility] 0-20 Dispense ity o f Supply Kit 00:00: blood [place] 00 pressure Medical cuff (any Branch brand), take BP at home BID mupirocin 2 2020-07 Yes [id number] Apply to [facility] % ointment 0-20 area(s) 3 ity of 00:00: (three) [place] 00 times Medical daily. Branch Miscellaneo 2020-07 Yes [id number] I10 - [facility] 0-20 Dispense ity o f Supply Kit 00:00: blood [place] 00 pressure Medical cuff (any Branch brand), take BP at home BID mupirocin 2 2020-07 Yes [id number] Apply to [facility] % ointment 0-20 area(s) 3 ity of 00:00: (three) [place] 00 times Medical daily. Branch atorvastati 2020-07- No [id number] 40mg Take 1 [facility] 40 mg 0-20 -09 tablet by ity of tablet 00:00: 00:00 mouth at [place] 00 :00 bedtime. Medical Branch atorvastati 2020-07- No [id number] 40mg Take 1 [facility] 40 mg 0-20 - tablet by ity of tablet 00:00: 00:00 mouth at [place] 00 :00 bedtime. Medical Branch atorvastati 2020-07- No [id number] 40mg Take 1 [facility] 40 mg 0-20 - tablet by ity of tablet 00:00: 00:00 mouth at [place] 00 :00 bedtime. Medical Branch lisinopriL 2020-07- No [id number] 2.5mg Take 0.5 [facility] 5 mg tablet 0-20 -29 tablets by i ty of 00:00: 00:00 mouth [place] 00 :00 daily. Medical Hold if BP Branch < 110/60 lisinopriL 2020-07- No [id number] 2.5mg Take 0.5 [facility] 5 mg tablet 0-20 -29 tablets by i ty of 00:00: 00:00 mouth [place] 00 :00 daily. Medical Hold if BP Branch < 110/60 ondansetron Yes [id number] 4mg Take 1 [facility] (ZOFRAN 8-04 tablet by ity of ODT) 4 mg 00:00: mouth [place] disintegrat 00 every 8 Medic al ing tablet (eight) Branch hours as needed for Nausea and Vomiting (N/V). ondansetron Yes [id number] 4mg Take 1 [facility] (ZOFRAN 8-04 tablet by ity of ODT) 4 mg 00:00: mouth [place] disintegrat 00 every 8 Medic al ing tablet (eight) Branch hours as needed for Nausea and Vomiting (N/V). ondansetron Yes [id number] 4mg Take 1 [facility] (ZOFRAN 8-04 tablet by ity of ODT) 4 mg 00:00: mouth [place] disintegrat 00 every 8 Medic al ing tablet (eight) Branch hours as needed for Nausea and Vomiting (N/V). ondansetron 2021-0 Yes [id number] 4mg Take 1 [facility] (ZOFRAN 8-04 tablet by ity of ODT) 4 mg 00:00: mouth [place] disintegrat 00 every 8 Medic al ing tablet (eight) Branch hours as needed for Nausea and Vomiting (N/V). ondansetron 2021-0 Yes [id number] 4mg Take 1 [facility] (ZOFRAN 8-04 tablet by ity of ODT) 4 mg 00:00: mouth [place] disintegrat 00 every 8 Medic al ing tablet (eight) Branch hours as needed for Nausea and Vomiting (N/V). ondansetron 202-0 Yes [id number] 4mg Take 1 [facility] (ZOFRAN 8-04 tablet by ity of ODT) 4 mg 00:00: mouth [place] disintegrat 00 every 8 Medic al ing tablet (eight) Branch hours as needed for Nausea and Vomiting (N/V). ondansetron 2020-0 Yes [id number] 4mg Take 1 [facility] (ZOFRAN 8-04 tablet by ity of ODT) 4 mg 00:00: mouth [place] disintegrat 00 every 8 Medic al ing tablet (eight) Branch hours as needed for Nausea and Vomiting (N/V). ondansetron 2020-0 Yes [id number] 4mg Take 1 [facility] (ZOFRAN 8-04 tablet by ity of ODT) 4 mg 00:00: mouth [place] disintegrat 00 every 8 Medic al ing tablet (eight) Branch hours as needed for Nausea and Vomiting (N/V). ondansetron 1-0 Yes [id number] 4mg Take 1 [facility] (ZOFRAN 8-04 tablet by ity of ODT) 4 mg 00:00: mouth [place] disintegrat 00 every 8 Medic al ing tablet (eight) Branch hours as needed for Nausea and Vomiting (N/V). ondansetron 2021-0 Yes [id number] 4mg Take 1 [facility] (ZOFRAN 8-04 tablet by ity of ODT) 4 mg 00:00: mouth [place] disintegrat 00 every 8 Medic al ing tablet (eight) Branch hours as needed for Nausea and Vomiting (N/V). ondansetron 2021-0 Yes [id number] 4mg Take 1 [facility] (ZOFRAN 8-04 tablet by ity of ODT) 4 mg 00:00: mouth [place] disintegrat 00 every 8 Medic al ing tablet (eight) Branch hours as needed for Nausea and Vomiting (N/V). ondansetron 1-0 Yes [id number] 4mg Take 1 [facility] (ZOFRAN 8-04 tablet by ity of ODT) 4 mg 00:00: mouth [place] disintegrat 00 every 8 Medic al ing tablet (eight) Branch hours as needed for Nausea and Vomiting (N/V). ondansetron 2020-0 Yes [id number] 4mg Take 1 [facility] (ZOFRAN 8-04 tablet by ity of ODT) 4 mg 00:00: mouth [place] disintegrat 00 every 8 Medic al ing tablet (eight) Branch hours as needed for Nausea and Vomiting (N/V). ondansetron 2020-0 Yes [id number] 4mg Take 1 [facility] (ZOFRAN 8-04 tablet by ity of ODT) 4 mg 00:00: mouth [place] disintegrat 00 every 8 Medic al ing tablet (eight) Branch hours as needed for Nausea and Vomiting (N/V). ondansetron 2020-0 Yes [id number] 4mg Take 1 [facility] (ZOFRAN 8-04 tablet by ity of ODT) 4 mg 00:00: mouth [place] disintegrat 00 every 8 Medic al ing tablet (eight) Branch hours as needed for Nausea and Vomiting (N/V). ondansetron 2020-0 Yes [id number] 4mg Take 1 [facility] (ZOFRAN 8-04 tablet by ity of ODT) 4 mg 00:00: mouth [place] disintegrat 00 every 8 Medic al ing tablet (eight) Branch hours as needed for Nausea and Vomiting (N/V). ondansetron 1-0 Yes [id number] 4mg Take 1 [facility] (ZOFRAN 8-04 tablet by ity of ODT) 4 mg 00:00: mouth [place] disintegrat 00 every 8 Medic al ing tablet (eight) Branch hours as needed for Nausea and Vomiting (N/V). ondansetron 1-0 Yes [id number] 4mg Take 1 [facility] (ZOFRAN 8-04 tablet by ity of ODT) 4 mg 00:00: mouth [place] disintegrat 00 every 8 Medic al ing tablet (eight) Branch hours as needed for Nausea and Vomiting (N/V). ondansetron 2021-0 Yes [id number] 4mg Take 1 [facility] (ZOFRAN 8-04 tablet by ity of ODT) 4 mg 00:00: mouth [place] disintegrat 00 every 8 Medic al ing tablet (eight) Branch hours as needed for Nausea and Vomiting (N/V). ondansetron 2021-0 Yes [id number] 4mg Take 1 [facility] (ZOFRAN 8-04 tablet by ity of ODT) 4 mg 00:00: mouth [place] disintegrat 00 every 8 Medic al ing tablet (eight) Branch hours as needed for Nausea and Vomiting (N/V). ondansetron 2021-0 Yes [id number] 4mg Take 1 [facility] (ZOFRAN 8-04 tablet by ity of ODT) 4 mg 00:00: mouth [place] disintegrat 00 every 8 Medic al ing tablet (eight) Branch hours as needed for Nausea and Vomiting (N/V). ondansetron 2021-0 Yes [id number] 4mg Take 1 [facility] (ZOFRAN 8-04 tablet by ity of ODT) 4 mg 00:00: mouth [place] disintegrat 00 every 8 Medic al ing tablet (eight) Branch hours as needed for Nausea and Vomiting (N/V). ondansetron 2021-0 Yes [id number] 4mg Take 1 [facility] (ZOFRAN 8-04 tablet by ity of ODT) 4 mg 00:00: mouth [place] disintegrat 00 every 8 Medic al ing tablet (eight) Branch hours as needed for Nausea and Vomiting (N/V). ondansetron 2021-0 Yes [id number] 4mg Take 1 [facility] (ZOFRAN 8-04 tablet by ity of ODT) 4 mg 00:00: mouth [place] disintegrat 00 every 8 Medic al ing tablet (eight) Branch hours as needed for Nausea and Vomiting (N/V). ondansetron 2021-0 Yes [id number] 4mg Take 1 [facility] (ZOFRAN 8-04 tablet by ity of ODT) 4 mg 00:00: mouth [place] disintegrat 00 every 8 Medic al ing tablet (eight) Branch hours as needed for Nausea and Vomiting (N/V). ondansetron 2021-0 Yes [id number] 4mg Take 1 [facility] (ZOFRAN 8-04 tablet by ity of ODT) 4 mg 00:00: mouth [place] disintegrat 00 every 8 Medic al ing tablet (eight) Branch hours as needed for Nausea and Vomiting (N/V). ondansetron 2021-0 Yes [id number] 4mg Take 1 [facility] (ZOFRAN 8-04 tablet by ity of ODT) 4 mg 00:00: mouth [place] disintegrat 00 every 8 Medic al ing tablet (eight) Branch hours as needed for Nausea and Vomiting (N/V). ondansetron 2021-0 Yes [id number] 4mg Take 1 [facility] (ZOFRAN 8-04 tablet by ity of ODT) 4 mg 00:00: mouth [place] disintegrat 00 every 8 Medic al ing tablet (eight) Branch hours as needed for Nausea and Vomiting (N/V). ondansetron 2021-0 Yes [id number] 4mg Take 1 [facility] (ZOFRAN 8-04 tablet by ity of ODT) 4 mg 00:00: mouth [place] disintegrat 00 every 8 Medic al ing tablet (eight) Branch hours as needed for Nausea and Vomiting (N/V). ondansetron 2021-0 Yes [id number] 4mg Take 1 [facility] (ZOFRAN 8-04 tablet by ity of ODT) 4 mg 00:00: mouth [place] disintegrat 00 every 8 Medic al ing tablet (eight) Branch hours as needed for Nausea and Vomiting (N/V). ondansetron 2021-0 Yes [id number] 4mg Take 1 [facility] (ZOFRAN 8-04 tablet by ity of ODT) 4 mg 00:00: mouth [place] disintegrat 00 every 8 Medic al ing tablet (eight) Branch hours as needed for Nausea and Vomiting (N/V). ondansetron 2021-0 Yes [id number] 4mg Take 1 [facility] (ZOFRAN 8-04 tablet by ity of ODT) 4 mg 00:00: mouth [place] disintegrat 00 every 8 Medic al ing tablet (eight) Branch hours as needed for Nausea and Vomiting (N/V). ondansetron 2021-0 Yes [id number] 4mg Take 1 [facility] (ZOFRAN 8-04 tablet by ity of ODT) 4 mg 00:00: mouth [place] disintegrat 00 every 8 Medic al ing tablet (eight) Branch hours as needed for Nausea and Vomiting (N/V). ondansetron 2021-0 Yes [id number] 4mg Take 1 [facility] (ZOFRAN 8-04 tablet by ity of ODT) 4 mg 00:00: mouth [place] disintegrat 00 every 8 Medic al ing tablet (eight) Branch hours as needed for Nausea and Vomiting (N/V). ondansetron 2021-0 Yes [id number] 4mg Take 1 [facility] (ZOFRAN 8-04 tablet by ity of ODT) 4 mg 00:00: mouth [place] disintegrat 00 every 8 Medic al ing tablet (eight) Branch hours as needed for Nausea and Vomiting (N/V). ondansetron 2021-0 Yes [id number] 4mg Take 1 [facility] (ZOFRAN 8-04 tablet by ity of ODT) 4 mg 00:00: mouth [place] disintegrat 00 every 8 Medic al ing tablet (eight) Branch hours as needed for Nausea and Vomiting (N/V). ondansetron 2021-0 Yes [id number] 4mg Take 1 [facility] (ZOFRAN 8-04 tablet by ity of ODT) 4 mg 00:00: mouth [place] disintegrat 00 every 8 Medic al ing tablet (eight) Branch hours as needed for Nausea and Vomiting (N/V). ondansetron 2021-0 Yes [id number] 4mg Take 1 [facility] (ZOFRAN 8-04 tablet by ity of ODT) 4 mg 00:00: mouth [place] disintegrat 00 every 8 Medic al ing tablet (eight) Branch hours as needed for Nausea and Vomiting (N/V). ondansetron 2021-0 Yes [id number] 4mg Take 1 [facility] (ZOFRAN 8-04 tablet by ity of ODT) 4 mg 00:00: mouth [place] disintegrat 00 every 8 Medic al ing tablet (eight) Branch hours as needed for Nausea and Vomiting (N/V). ondansetron 2021-0 Yes [id number] 4mg Take 1 [facility] (ZOFRAN 8-04 tablet by ity of ODT) 4 mg 00:00: mouth [place] disintegrat 00 every 8 Medic al ing tablet (eight) Branch hours as needed for Nausea and Vomiting (N/V). ondansetron 2021-0 Yes [id number] 4mg Take 1 [facility] (ZOFRAN 8-04 tablet by ity of ODT) 4 mg 00:00: mouth [place] disintegrat 00 every 8 Medic al ing tablet (eight) Branch hours as needed for Nausea and Vomiting (N/V). ondansetron 0 Yes [id number] 4mg Take 1 [facility] (ZOFRAN 8-04 tablet by ity of ODT) 4 mg 00:00: mouth [place] disintegrat 00 every 8 Medic al ing tablet (eight) Branch hours as needed for Nausea and Vomiting (N/V). ondansetron Yes [id number] 4mg Take 1 [facility] (ZOFRAN 8-04 tablet by ity of ODT) 4 mg 00:00: mouth [place] disintegrat 00 every 8 Medic al ing tablet (eight) Branch hours as needed for Nausea and Vomiting (N/V). ALBUTEROL Yes [id number] INHALE 2 [facility] 90 2-02 PUFFS BY ity of mcg/actuati 00:00: MOUTH [place] on inhaler 00 EVERY 6 Medica l HOURS Branch NEEDED FOR SHORTNESS OF BREATH ALBUTEROL Yes [id number] INHALE 2 [facility] 90 2-02 PUFFS BY ity of mcg/actuati 00:00: MOUTH [place] on inhaler 00 EVERY 6 Medica l HOURS Branch NEEDED FOR SHORTNESS OF BREATH ALBUTEROL Yes [id number] INHALE 2 [facility] 90 2-02 PUFFS BY ity of mcg/actuati 00:00: MOUTH [place] on inhaler 00 EVERY 6 Medica l HOURS Branch NEEDED FOR SHORTNESS OF BREATH ALBUTEROL Yes [id number] INHALE 2 [facility] 90 2-02 PUFFS BY ity of mcg/actuati 00:00: MOUTH [place] on inhaler 00 EVERY 6 Medica l HOURS Branch NEEDED FOR SHORTNESS OF BREATH ALBUTEROL Yes [id number] INHALE 2 [facility] 90 2-02 PUFFS BY ity of mcg/actuati 00:00: MOUTH [place] on inhaler 00 EVERY 6 Medica l HOURS Branch NEEDED FOR SHORTNESS OF BREATH ALBUTEROL Yes [id number] INHALE 2 [facility] 90 2-02 PUFFS BY ity of mcg/actuati 00:00: MOUTH [place] on inhaler 00 EVERY 6 Medica l HOURS Branch NEEDED FOR SHORTNESS OF BREATH ALBUTEROL 0 Yes [id number] INHALE 2 [facility] 90 2-02 PUFFS BY ity of mcg/actuati 00:00: MOUTH [place] on inhaler 00 EVERY 6 Medica l HOURS Branch NEEDED FOR SHORTNESS OF BREATH ALBUTEROL 0 Yes [id number] INHALE 2 [facility] 90 2-02 PUFFS BY ity of mcg/actuati 00:00: MOUTH [place] on inhaler 00 EVERY 6 Medica l HOURS Branch NEEDED FOR SHORTNESS OF BREATH ALBUTEROL 0 Yes [id number] INHALE 2 [facility] 90 2-02 PUFFS BY ity of mcg/actuati 00:00: MOUTH [place] on inhaler 00 EVERY 6 Medica l HOURS Branch NEEDED FOR SHORTNESS OF BREATH ALBUTEROL 0 Yes [id number] INHALE 2 [facility] 90 2-02 PUFFS BY ity of mcg/actuati 00:00: MOUTH [place] on inhaler 00 EVERY 6 Medica l HOURS Branch NEEDED FOR SHORTNESS OF BREATH ALBUTEROL 0 Yes [id number] INHALE 2 [facility] 90 2-02 PUFFS BY ity of mcg/actuati 00:00: MOUTH [place] on inhaler 00 EVERY 6 Medica l HOURS Branch NEEDED FOR SHORTNESS OF BREATH ALBUTEROL 0 Yes [id number] INHALE 2 [facility] 90 2-02 PUFFS BY ity of mcg/actuati 00:00: MOUTH [place] on inhaler 00 EVERY 6 Medica l HOURS Branch NEEDED FOR SHORTNESS OF BREATH ALBUTEROL 0 Yes [id number] INHALE 2 [facility] 90 2-02 PUFFS BY ity of mcg/actuati 00:00: MOUTH [place] on inhaler 00 EVERY 6 Medica l HOURS Branch NEEDED FOR SHORTNESS OF BREATH ALBUTEROL 0 Yes [id number] INHALE 2 [facility] 90 2-02 PUFFS BY ity of mcg/actuati 00:00: MOUTH [place] on inhaler 00 EVERY 6 Medica l HOURS Branch NEEDED FOR SHORTNESS OF BREATH ALBUTEROL 0 Yes [id number] INHALE 2 [facility] 90 2-02 PUFFS BY ity of mcg/actuati 00:00: MOUTH [place] on inhaler 00 EVERY 6 Medica l HOURS Branch NEEDED FOR SHORTNESS OF BREATH ALBUTEROL Yes [id number] INHALE 2 [facility] 90 2-02 PUFFS BY ity of mcg/actuati 00:00: MOUTH [place] on inhaler 00 EVERY 6 Medica l HOURS Branch NEEDED FOR SHORTNESS OF BREATH ALBUTEROL Yes [id number] INHALE 2 [facility] 90 2-02 PUFFS BY ity of mcg/actuati 00:00: MOUTH [place] on inhaler 00 EVERY 6 Medica l HOURS Branch NEEDED FOR SHORTNESS OF BREATH ALBUTEROL Yes [id number] INHALE 2 [facility] 90 2-02 PUFFS BY ity of mcg/actuati 00:00: MOUTH [place] on inhaler 00 EVERY 6 Medica l HOURS Branch NEEDED FOR SHORTNESS OF BREATH ALBUTEROL Yes [id number] INHALE 2 [facility] 90 2-02 PUFFS BY ity of mcg/actuati 00:00: MOUTH [place] on inhaler 00 EVERY 6 Medica l HOURS Branch NEEDED FOR SHORTNESS OF BREATH ALBUTEROL Yes [id number] INHALE 2 [facility] 90 2-02 PUFFS BY ity of mcg/actuati 00:00: MOUTH [place] on inhaler 00 EVERY 6 Medica l HOURS Branch NEEDED FOR SHORTNESS OF BREATH ALBUTEROL Yes [id number] INHALE 2 [facility] 90 2-02 PUFFS BY ity of mcg/actuati 00:00: MOUTH [place] on inhaler 00 EVERY 6 Medica l HOURS Branch NEEDED FOR SHORTNESS OF BREATH ALBUTEROL Yes [id number] INHALE 2 [facility] 90 2-02 PUFFS BY ity of mcg/actuati 00:00: MOUTH [place] on inhaler 00 EVERY 6 Medica l HOURS Branch NEEDED FOR SHORTNESS OF BREATH ALBUTEROL Yes [id number] INHALE 2 [facility] 90 2-02 PUFFS BY ity of mcg/actuati 00:00: MOUTH [place] on inhaler 00 EVERY 6 Medica l HOURS Branch NEEDED FOR SHORTNESS OF BREATH ALBUTEROL Yes [id number] INHALE 2 [facility] 90 2-02 PUFFS BY ity of mcg/actuati 00:00: MOUTH [place] on inhaler 00 EVERY 6 Medica l HOURS Branch NEEDED FOR SHORTNESS OF BREATH ALBUTEROL Yes [id number] INHALE 2 [facility] 90 2-02 PUFFS BY ity of mcg/actuati 00:00: MOUTH [place] on inhaler 00 EVERY 6 Medica l HOURS Branch NEEDED FOR SHORTNESS OF BREATH ALBUTEROL Yes [id number] INHALE 2 [facility] 90 2-02 PUFFS BY ity of mcg/actuati 00:00: MOUTH [place] on inhaler 00 EVERY 6 Medica l HOURS Branch NEEDED FOR SHORTNESS OF BREATH ALBUTEROL Yes [id number] INHALE 2 [facility] 90 2-02 PUFFS BY ity of mcg/actuati 00:00: MOUTH [place] on inhaler 00 EVERY 6 Medica l HOURS Branch NEEDED FOR SHORTNESS OF BREATH ALBUTEROL Yes [id number] INHALE 2 [facility] 90 2-02 PUFFS BY ity of mcg/actuati 00:00: MOUTH [place] on inhaler 00 EVERY 6 Medica l HOURS Branch NEEDED FOR SHORTNESS OF BREATH ALBUTEROL Yes [id number] INHALE 2 [facility] 90 2-02 PUFFS BY ity of mcg/actuati 00:00: MOUTH [place] on inhaler 00 EVERY 6 Medica l HOURS Branch NEEDED FOR SHORTNESS OF BREATH ALBUTEROL Yes [id number] INHALE 2 [facility] 90 2-02 PUFFS BY ity of mcg/actuati 00:00: MOUTH [place] on inhaler 00 EVERY 6 Medica l HOURS Branch NEEDED FOR SHORTNESS OF BREATH ALBUTEROL Yes [id number] INHALE 2 [facility] 90 2-02 PUFFS BY ity of mcg/actuati 00:00: MOUTH [place] on inhaler 00 EVERY 6 Medica l HOURS Branch NEEDED FOR SHORTNESS OF BREATH ALBUTEROL Yes [id number] INHALE 2 [facility] 90 2-02 PUFFS BY ity of mcg/actuati 00:00: MOUTH [place] on inhaler 00 EVERY 6 Medica l HOURS Branch NEEDED FOR SHORTNESS OF BREATH ALBUTEROL Yes [id number] INHALE 2 [facility] 90 2-02 PUFFS BY ity of mcg/actuati 00:00: MOUTH [place] on inhaler 00 EVERY 6 Medica l HOURS Branch NEEDED FOR SHORTNESS OF BREATH ALBUTEROL Yes [id number] INHALE 2 [facility] 90 2-02 PUFFS BY ity of mcg/actuati 00:00: MOUTH [place] on inhaler 00 EVERY 6 Medica l HOURS Branch NEEDED FOR SHORTNESS OF BREATH ALBUTEROL Yes [id number] INHALE 2 [facility] 90 2-02 PUFFS BY ity of mcg/actuati 00:00: MOUTH [place] on inhaler 00 EVERY 6 Medica l HOURS Branch NEEDED FOR SHORTNESS OF BREATH ALBUTEROL Yes [id number] INHALE 2 [facility] 90 2-02 PUFFS BY ity of mcg/actuati 00:00: MOUTH [place] on inhaler 00 EVERY 6 Medica l HOURS Branch NEEDED FOR SHORTNESS OF BREATH ALBUTEROL Yes [id number] INHALE 2 [facility] 90 2-02 PUFFS BY ity of mcg/actuati 00:00: MOUTH [place] on inhaler 00 EVERY 6 Medica l HOURS Branch NEEDED FOR SHORTNESS OF BREATH ALBUTEROL Yes [id number] INHALE 2 [facility] 90 2-02 PUFFS BY ity of mcg/actuati 00:00: MOUTH [place] on inhaler 00 EVERY 6 Medica l HOURS Branch NEEDED FOR SHORTNESS OF BREATH ALBUTEROL Yes [id number] INHALE 2 [facility] 90 2-02 PUFFS BY ity of mcg/actuati 00:00: MOUTH [place] on inhaler 00 EVERY 6 Medica l HOURS Branch NEEDED FOR SHORTNESS OF BREATH ALBUTEROL Yes [id number] INHALE 2 [facility] 90 2-02 PUFFS BY ity of mcg/actuati 00:00: MOUTH [place] on inhaler 00 EVERY 6 Medica l HOURS Branch NEEDED FOR SHORTNESS OF BREATH ALBUTEROL Yes [id number] INHALE 2 [facility] 90 2-02 PUFFS BY ity of mcg/actuati 00:00: MOUTH [place] on inhaler 00 EVERY 6 Medica l HOURS Branch NEEDED FOR SHORTNESS OF BREATH ALBUTEROL Yes [id number] INHALE 2 [facility] 90 2-02 PUFFS BY ity of mcg/actuati 00:00: MOUTH [place] on inhaler 00 EVERY 6 Medica l HOURS Branch NEEDED FOR SHORTNESS OF BREATH ALBUTEROL 0 Yes [id number] INHALE 2 [facility] 90 2-02 PUFFS BY ity of mcg/actuati 00:00: MOUTH [place] on inhaler 00 EVERY 6 Medica l HOURS Branch NEEDED FOR SHORTNESS OF BREATH HYDROcodone 2020-0 Yes 1{tbl} Take 1 Un [...] Medical HOURS Branch NEEDED FOR NAUSEA ondansetron 2020-0 Yes TAKE 1 [facility] ers 4 mg tablet 1-27 TABLET BY ity of 00:00: MOUTH [place] 00 EVERY 4 Medical HOURS Branch NEEDED FOR NAUSEA ondansetron 2020-0 Yes TAKE 1 [facility] ers 4 mg tablet 1-27 TABLET BY ity of 00:00: MOUTH [place] 00 EVERY 4 Medical HOURS Branch NEEDED FOR NAUSEA ondansetron 2020-0 Yes TAKE 1 [facility] ers 4 mg tablet 1-27 TABLET BY ity of 00:00: MOUTH [place] 00 EVERY 4 Medical HOURS Branch NEEDED FOR NAUSEA ondansetron 2020-0 Yes TAKE 1 [facility] ers 4 mg tablet 1-27 TABLET BY ity of 00:00: MOUTH [place] 00 EVERY 4 Medical HOURS Branch NEEDED FOR NAUSEA ondansetron 2020-0 Yes TAKE 1 [facility] ers 4 mg tablet 1-27 TABLET BY ity of 00:00: MOUTH [place] 00 EVERY 4 Medical HOURS Branch NEEDED FOR NAUSEA ondansetron 2020-0 Yes TAKE 1 [facility] ers 4 mg tablet 1-27 TABLET BY ity of 00:00: MOUTH 00 EVERY 4 Medical HOURS Branch NEEDED FOR NAUSEA ondansetron 2020-0 Yes TAKE 1 [facility] ers 4 mg tablet 1-27 TABLET BY ity of 00:00: MOUTH [place] 00 EVERY 4 Medical HOURS Branch NEEDED FOR NAUSEA ondansetron 2020-0 Yes TAKE 1 [facility] ers 4 mg tablet 1-27 TABLET BY ity of 00:00: MOUTH 00 EVERY 4 Medical HOURS Branch NEEDED FOR NAUSEA ondansetron 2020-0 Yes TAKE 1 [facility] ers 4 mg tablet 1-27 TABLET BY ity of 00:00: MOUTH 00 EVERY 4 Medical HOURS Branch NEEDED FOR NAUSEA ondansetron 2020-0 Yes TAKE 1 [facility] ers 4 mg tablet 1-27 TABLET BY ity of 00:00: MOUTH [place] 00 EVERY 4 Medical HOURS Branch NEEDED FOR NAUSEA ondansetron 2020-0 Yes TAKE 1 [facility] ers 4 mg tablet 1-27 TABLET BY ity of 00:00: MOUTH [place] 00 EVERY 4 Medical HOURS Branch NEEDED FOR NAUSEA ondansetron 2020-0 Yes TAKE 1 [facility] ers 4 mg tablet 1-27 TABLET BY ity of 00:00: MOUTH 00 EVERY 4 Medical HOURS Branch NEEDED FOR NAUSEA ondansetron 2020-0 Yes TAKE 1 [facility] ers 4 mg tablet 1-27 TABLET BY ity of 00:00: MOUTH [place] 00 EVERY 4 Medical HOURS Branch NEEDED FOR NAUSEA ondansetron 2020-0 Yes TAKE 1 [facility] ers 4 mg tablet 1-27 TABLET BY ity of 00:00: MOUTH 00 EVERY 4 Medical HOURS Branch NEEDED FOR NAUSEA ondansetron 2020-0 Yes TAKE 1 [facility] ers 4 mg tablet 1-27 TABLET BY ity of 00:00: MOUTH [place] 00 EVERY 4 Medical HOURS Branch NEEDED FOR NAUSEA ondansetron 2020-0 Yes TAKE 1 [facility] ers 4 mg tablet 1-27 TABLET BY ity of 00:00: MOUTH [place] 00 EVERY 4 Medical HOURS Branch NEEDED FOR NAUSEA ondansetron 2020-0 Yes TAKE 1 [facility] ers 4 mg tablet 1-27 TABLET BY ity of 00:00: MOUTH 00 EVERY 4 Medical HOURS Branch NEEDED FOR NAUSEA ondansetron 2020-0 Yes TAKE 1 [facility] ers 4 mg tablet 1-27 TABLET BY ity of 00:00: MOUTH 00 EVERY 4 Medical HOURS Branch NEEDED FOR NAUSEA ondansetron 2020-0 Yes TAKE 1 [facility] ers 4 mg tablet 1-27 TABLET BY ity of 00:00: MOUTH 00 EVERY 4 Medical HOURS Branch NEEDED FOR NAUSEA ondansetron 2020-0 Yes TAKE 1 [facility] ers 4 mg tablet 1-27 TABLET BY ity of 00:00: MOUTH 00 EVERY 4 Medical HOURS Branch NEEDED FOR NAUSEA ondansetron 2020-0 Yes TAKE 1 [facility] ers 4 mg tablet 1-27 TABLET BY ity of 00:00: MOUTH 00 EVERY 4 Medical HOURS Branch NEEDED FOR NAUSEA ondansetron 2020-0 Yes TAKE 1 [facility] ers 4 mg tablet 1-27 TABLET BY ity of 00:00: MOUTH EVERY 4 Medical HOURS Branch NEEDED FOR NAUSEA ondansetron 2020-0 Yes TAKE 1 [facility] ers 4 mg tablet 1-27 TABLET BY ity of 00:00: MOUTH 00 EVERY 4 [facility] NEEDED FOR NAUSEA ondansetron 2020-0 Yes TAKE 1 [facility] 4 mg tablet 1-27 TABLET BY [facility] 00:00: MOUTH 00 EVERY 4 [facility] HOU[facility] NEEDED FOR NAUSEA ondansetron 2020-0 Yes TAKE 1 [facility] 4 mg tablet 1-27 TABLET BY [facility] 00:00: MOUTH EVERY 4 [facility] HOU[facility] NEEDED FOR NAUSEA ondansetron 2020-0 Yes TAKE 1 [facility] 4 mg tablet 1-27 TABLET BY [facility] 00:00: MOUTH 00 EVERY 4 [facility] HOU[facility] NEEDED FOR NAUSEA ondansetron 2020-0 Yes TAKE 1 [facility] 4 mg tablet 1-27 TABLET BY [facility] 00:00: MOUTH 00 EVERY 4 [facility] HOU[facility] NEEDED FOR NAUSEA ondansetron 2020-0 Yes TAKE 1 [facility] 4 mg tablet 1-27 TABLET BY [facility] 00:00: MOUTH 00 EVERY 4 [facility] HOU[facility] NEEDED FOR NAUSEA ondansetron 2020-0 Yes TAKE 1 [facility] 4 mg tablet 1-27 TABLET BY [facility] 00:00: MOUTH [place] 00 EVERY 4 [facility] HOU[facility] NEEDED FOR NAUSEA ondansetron 2020-0 Yes TAKE 1 [facility] 4 mg tablet 1-27 TABLET BY [facility] 00:00: MOUTH [place] 00 EVERY 4 [facility] HOU[facility] NEEDED FOR NAUSEA ondansetron 2020-0 Yes TAKE 1 [facility] 4 mg tablet 1-27 TABLET BY [facility] 00:00: MOUTH 00 EVERY 4 [facility] HOU[facility] NEEDED FOR NAUSEA ondansetron 2020-0 Yes TAKE 1 [facility] 4 mg tablet 1-27 TABLET BY [facility] 00:00: MOUTH 00 EVERY 4 [facility] HOU[facility] NEEDED FOR NAUSEA ondansetron 2020-0 Yes TAKE 1 [facility] 4 mg tablet 1-27 TABLET BY [facility] 00:00: MOUTH 00 EVERY 4 [facility] HOU[facility] NEEDED FOR NAUSEA ondansetron 2020-0 Yes TAKE 1 [facility] 4 mg tablet 1-27 TABLET BY [facility] 00:00: MOUTH 00 EVERY 4 [facility] HOU[facility] NEEDED FOR NAUSEA ondansetron 2020-0 Yes TAKE 1 [facility] 4 mg tablet 1-27 TABLET BY [facility] 00:00: MOUTH EVERY 4 [facility] HOU[facility] NEEDED FOR NAUSEA ondansetron 2020-0 Yes TAKE 1 [facility] 4 mg tablet 1-27 TABLET BY [facility] 00:00: MOUTH 00 EVERY 4 [facility] HOU[facility] NEEDED FOR NAUSEA ondansetron 2020-0 Yes TAKE 1 [facility] 4 mg tablet 1-27 TABLET BY [facility] 00:00: MOUTH 00 EVERY 4 [facility] HOU[facility] NEEDED FOR NAUSEA ondansetron 2020-0 Yes TAKE 1 [facility] 4 mg tablet 1-27 TABLET BY [facility] 00:00: MOUTH EVERY 4 [facility] HOU[facility] NEEDED FOR NAUSEA ondansetron 2020-0 Yes TAKE 1 [facility] 4 mg tablet 1-27 TABLET BY [facility] 00:00: MOUTH 00 EVERY 4 [facility] HOU[facility] NEEDED FOR NAUSEA ondansetron 2020-0 Yes TAKE 1 [facility] 4 mg tablet 1-27 TABLET BY [facility] 00:00: MOUTH [place] 00 EVERY 4 [facility] HOU[facility] NEEDED FOR NAUSEA ondansetron 2020-0 Yes TAKE 1 [facility] 4 mg tablet 1-27 TABLET BY [facility] 00:00: MOUTH 00 EVERY 4 [facility] HOU[facility] NEEDED FOR NAUSEA ondansetron 2020-0 Yes TAKE 1 [facility] 4 mg tablet 1-27 TABLET BY [facility] 00:00: MOUTH [place] 00 EVERY 4 [facility] HOURS [facility] NEEDED FOR NAUSEA Immunizations Ordered Filled Immunization Date Status Comments [facility] e Immunization Name Name Influenza Virus 2022-05-02 Completed [facility], 00:00:00 [place] [facility] Preserv and ABX Branch Free 6 MO-64 YRS Influenza Virus 2022-05-02 Completed [facility], 00:00:00 [place] [facility] Preserv and ABX [facility] Free 6 MO-64 YRS Influenza Virus 2022-05-02 Completed [facility], 00:00:00 [place] [facility] Preserv and ABX [facility] Free 6 MO-64 YRS Influenza Virus 2022-05-02 Completed [facility], 00:00:00 [place] [facility] Preserv and ABX [facility] Free 6 MO-64 YRS Influenza Virus 2022-05-02 Completed [facility], 00:00:00 [place] [facility] Preserv and ABX [facility] Free 6 MO-64 YRS Influenza Virus 2022-05-02 Completed [facility], 00:00:00 [place] [facility] Preserv and ABX Branch Free 6 MO-64 YRS Influenza Virus 2022-05-02 Completed [facility], 00:00:00 [place] [facility] Preserv and ABX [facility] Free 6 MO-64 YRS Influenza Virus 2022-05-02 Completed [facility], 00:00:00 [place] [facility] Preserv and ABX Branch Free 6 MO-64 YRS Influenza Virus 2022-05-02 Completed [facility], 00:00:00 [place] [facility] Preserv and ABX Branch Free 6 MO-64 YRS Influenza Virus 2022-05-02 Completed [facility], 00:00:00 [place] [facility] Preserv and ABX Branch Free 6 MO-64 YRS Influenza Virus 2022-05-02 Completed [facility], 00:00:00 [place] [facility] Preserv and ABX [facility] Free 6 MO-64 YRS Influenza Virus 2022-05-02 Completed [facility], 00:00:00 [place] [facility] Preserv and ABX Branch Free 6 MO-64 YRS Influenza Virus 2022-05-02 Completed [facility], 00:00:00 [place] [facility] Preserv and ABX Branch Free 6 MO-64 YRS Influenza Virus 2022-05-02 Completed [facility], 00:00:00 [place] [facility] Preserv and ABX Branch Free 6 MO-64 YRS Influenza Virus 2022-05-02 Completed [facility], 00:00:00 [place] [facility] Preserv and ABX Branch Free 6 MO-64 YRS Influenza Virus 2022-05-02 Completed [facility], 00:00:00 [place] [facility] Preserv and ABX Branch Free 6 MO-64 YRS Influenza Virus 2022-05-02 Completed [facility], 00:00:00 [place] [facility] Preserv and ABX Branch Free 6 MO-64 YRS Influenza Virus 2022-05-02 Completed [facility] Vaccine [facility], 00:00:00 [place] [facility] Preserv and ABX Branch Free 6 MO-64 YRS Influenza Virus 2022-05-02 Completed [facility] Vaccine [facility], 00:00:00 [place] [facility] Preserv and ABX Branch Free 6 MO-64 YRS Influenza Virus 2022-05-02 Completed [facility], 00:00:00 [place] [facility] Preserv and ABX Branch Free 6 MO-64 YRS Influenza Virus 2022-05-02 Completed [facility] Vaccine [facility], 00:00:00 [place] [facility] Preserv and ABX Branch Free 6 MO-64 YRS Influenza Virus 2022-05-02 Completed [facility]ine [facility], 00:00:00 [place] [facility] Preserv and ABX Branch Free 6 MO-64 YRS Influenza Virus 2022-05-02 Completed [facility]ine [facility], 00:00:00 [place] [facility] Preserv and ABX Branch Free 6 MO-64 YRS Influenza Virus 2022-05-02 Completed [facility], 00:00:00 [place] [facility] Preserv and ABX Branch Free 6 MO-64 YRS Influenza Virus 2022-05-02 Completed [facility]ine [facility], 00:00:00 [place] [facility] Preserv and ABX Branch Free 6 MO-64 YRS Pneumococcal 2021-10-04 Completed [facility] f Polysaccharide, 00:00:00 [place] [facility] PPSV23 (PNEUMOVAX) Branch Influenza Virus 2021-10-04 Completed [facility] Vaccine [facility] .5 mL 00:00:00 [place] [facility] IM 6+ MO Branch Pneumococcal 2021-10-04 Completed [facility] f Polysaccharide, 00:00:00 [place] [facility] PPSV23 (PNEUMOVAX) Branch Influenza Virus 2021-10-04 Completed [facility] Vaccine [facility] .5 mL 00:00:00 [place] [facility] IM 6+ MO Branch Pneumococcal 2021-10-04 Completed [facility] f Polysaccharide, 00:00:00 [place] [facility] PPSV23 (PNEUMOVAX) Branch Influenza Virus 2021-10-04 Completed [facility] Vaccine [facility] .5 mL 00:00:00 [place] [facility] IM 6+ MO Branch Pneumococcal 2021-10-04 Completed [facility] Polysaccharide, 00:00:00 [place] [facility] PPSV23 (PNEUMOVAX) Branch Influenza Virus 2021-10-04 Completed [facility] Vaccine [facility] .5 mL 00:00:00 [place] [facility] IM 6+ MO Branch Pneumococcal 2021-10-04 Completed [facility] f Polysaccharide, 00:00:00 [place] [facility] PPSV23 (PNEUMOVAX) Branch Influenza Virus 2021-10-04 Completed [facility] Vaccine [facility] .5 mL 00:00:00 [place] [facility] IM 6+ MO Branch Pneumococcal 2021-10-04 Completed [facility] f Polysaccharide, 00:00:00 [place] [facility] PPSV23 (PNEUMOVAX) Branch Influenza Virus 2021-10-04 Completed [facility] Vaccine [facility] .5 mL 00:00:00 [place] [facility] IM 6+ MO Branch Pneumococcal 2021-10-04 Completed [facility] Polysaccharide, 00:00:00 [place] [facility] PPSV23 (PNEUMOVAX) Branch Influenza Virus 2021-10-04 Completed [facility] Vaccine [facility] .5 mL 00:00:00 [place] [facility] IM 6+ MO Branch Pneumococcal 2021-10-04 Completed [facility] f Polysaccharide, 00:00:00 [place] [facility] PPSV23 (PNEUMOVAX) Branch Influenza Virus 2021-10-04 Completed [facility] Vaccine [facility] .5 mL 00:00:00 [place] [facility] IM 6+ MO Branch Pneumococcal 2021-10-04 Completed [facility] f Polysaccharide, 00:00:00 [place] [facility] PPSV23 (PNEUMOVAX) Branch Influenza Virus 2021-10-04 Completed [facility] Vaccine [facility] .5 mL 00:00:00 [place] [facility] IM 6+ MO Branch Pneumococcal 2021-10-04 Completed [facility] f Polysaccharide, 00:00:00 [place] [facility] PPSV23 (PNEUMOVAX) Branch Influenza Virus 2021-10-04 Completed [facility] Vaccine [facility] .5 mL 00:00:00 [place] [facility] IM 6+ MO Branch Pneumococcal 2021-10-04 Completed [facility] f Polysaccharide, 00:00:00 [place] [facility] PPSV23 (PNEUMOVAX) Branch Influenza Virus 2021-10-04 Completed [facility] Vaccine [facility] .5 mL 00:00:00 [place] [facility] IM 6+ MO Branch Pneumococcal 2021-10-04 Completed [facility] f Polysaccharide, 00:00:00 [place] [facility] PPSV23 (PNEUMOVAX) Branch Influenza Virus 2021-10-04 Completed [facility] Vaccine [facility] .5 mL 00:00:00 [place] [facility] IM 6+ MO Branch Pneumococcal 2021-10-04 Completed [facility] f Polysaccharide, 00:00:00 [place] [facility] PPSV23 (PNEUMOVAX) Branch Influenza Virus 2021-10-04 Completed [facility] Vaccine [facility] .5 mL 00:00:00 [place] [facility] IM 6+ MO Branch Pneumococcal 2021-10-04 Completed [facility] f Polysaccharide, 00:00:00 [place] [facility] PPSV23 (PNEUMOVAX) Branch Influenza Virus 2021-10-04 Completed [facility] Vaccine [facility] .5 mL 00:00:00 [place] [facility] IM 6+ MO Branch Pneumococcal 2021-10-04 Completed [facility] f Polysaccharide, 00:00:00 [place] [facility] PPSV23 (PNEUMOVAX) Branch Influenza Virus 2021-10-04 Completed [facility] Vaccine [facility] .5 mL 00:00:00 [place] [facility] 6+ MO Branch Pneumococcal 2021-10-04 Completed [facility] f Polysaccharide, 00:00:00 [place] [facility] PPSV23 (PNEUMOVAX) Branch Influenza Virus 2021-10-04 Completed [facility] Vaccine Quad .5 mL 00:00:00 [place] [facility] 6+ MO Branch Pneumococcal 2021-10-04 Completed [facility] f Polysaccharide, 00:00:00 [place] [facility] PPSV23 (PNEUMOVAX) Branch Influenza Virus 2021-10-04 Completed [facility] Vaccine [facility] .5 mL 00:00:00 [place] [facility] IM 6+ MO Branch Pneumococcal 2021-10-04 Completed [facility] f Polysaccharide, 00:00:00 [place] [facility] PPSV23 (PNEUMOVAX) Branch Influenza Virus 2021-10-04 Completed [facility] Vaccine Quad .5 mL 00:00:00 [place] [facility] 6+ MO Branch Pneumococcal 2021-10-04 Completed [facility] o f Polysaccharide, 00:00:00 [place] [facility] PPSV23 (PNEUMOVAX) Branch Influenza Virus 2021-10-04 Completed [facility] Vaccine Quad .5 mL 00:00:00 [place] [facility] IM 6+ MO Branch Pneumococcal 2021-10-04 Completed [facility] o f Polysaccharide, 00:00:00 [place] [facility] PPSV23 (PNEUMOVAX) Branch Influenza Virus 2021-10-04 Completed [facility] Vaccine Quad .5 mL 00:00:00 [place] [facility] IM 6+ MO Branch Pneumococcal 2021-10-04 Completed [facility] o f Polysaccharide, 00:00:00 [place] [facility] PPSV23 (PNEUMOVAX) Branch Influenza Virus 2021-10-04 Completed [facility] Vaccine Quad .5 mL 00:00:00 [place] [facility] IM 6+ MO Branch Pneumococcal 2021-10-04 Completed [facility] o f Polysaccharide, 00:00:00 [place] [facility] PPSV23 (PNEUMOVAX) Branch Influenza Virus 2021-10-04 Completed [facility] Vaccine Quad .5 mL 00:00:00 [place] [facility] IM 6+ MO Branch Pneumococcal 2021-10-04 Completed [facility] o f Polysaccharide, 00:00:00 [place] [facility] PPSV23 (PNEUMOVAX) Branch Influenza Virus 2021-10-04 Completed [facility] Vaccine Quad .5 mL 00:00:00 [place] [facility] IM 6+ MO Branch Pneumococcal 2021-10-04 Completed [facility] o f Polysaccharide, 00:00:00 [place] [facility] PPSV23 (PNEUMOVAX) Branch Influenza Virus 2021-10-04 Completed [facility] Vaccine Quad .5 mL 00:00:00 [place] [facility] IM 6+ MO Branch Pneumococcal 2021-10-04 Completed [facility] o f Polysaccharide, 00:00:00 [place] [facility] PPSV23 (PNEUMOVAX) Branch Influenza Virus 2021-10-04 Completed [facility] Vaccine Quad .5 mL 00:00:00 [place] [facility] IM 6+ MO Branch Pneumococcal 2021-10-04 Completed [facility] o f Polysaccharide, 00:00:00 [place] [facility] PPSV23 (PNEUMOVAX) Branch Influenza Virus 2021-10-04 Completed [facility] Vaccine Quad .5 mL 00:00:00 [place] [facility] IM 6+ MO Branch Pneumococcal 2021-10-04 Completed [facility] o f Polysaccharide, 00:00:00 [place] [facility] PPSV23 (PNEUMOVAX) Branch Influenza Virus 2021-10-04 Completed [facility] Vaccine Quad .5 mL 00:00:00 [place] [facility] IM 6+ MO Branch Pneumococcal 2021-10-04 Completed [facility] o f Polysaccharide, 00:00:00 [place] [facility] PPSV23 (PNEUMOVAX) Branch Influenza Virus 2021-10-04 Completed [facility] Vaccine Quad .5 mL 00:00:00 [facility] 6+ MO Branch Pneumococcal 2021-10-04 Completed [facility] o f Polysaccharide, 00:00:00 [place] [facility] PPSV23 (PNEUMOVAX) Branch Influenza Virus 2021-10-04 Completed [facility] Vaccine Quad .5 mL 00:00:00 [facility] 6+ MO Branch Pneumococcal 2021-10-04 Completed [facility] o f Polysaccharide, 00:00:00 [place] [facility] PPSV23 (PNEUMOVAX) Branch Influenza Virus 2021-10-04 Completed [facility] Vaccine Quad .5 mL 00:00:00 [place] [facility] 6+ MO Branch Pneumococcal 2021-10-04 Completed [facility] o f Polysaccharide, 00:00:00 [place] [facility] PPSV23 (PNEUMOVAX) Branch Influenza Virus 2021-10-04 Completed [facility] Vaccine Quad .5 mL 00:00:00 [place] [facility] IM 6+ MO Branch Pneumococcal 2021-10-04 Completed [facility] o f Polysaccharide, 00:00:00 [place] [facility] PPSV23 (PNEUMOVAX) Branch Influenza Virus 2021-10-04 Completed [facility] Vaccine Quad .5 mL 00:00:00 [place] [facility] 6+ MO Branch Pneumococcal 2021-10-04 Completed [facility] o f Polysaccharide, 00:00:00 [place] [facility] PPSV23 (PNEUMOVAX) Branch Influenza Virus 2021-10-04 Completed [facility] Vaccine Quad .5 mL 00:00:00 [place] [facility] 6+ MO Branch Pneumococcal 2021-10-04 Completed [facility] o f Polysaccharide, 00:00:00 [place] [facility] PPSV23 (PNEUMOVAX) Branch Influenza Virus 2021-10-04 Completed [facility] Vaccine Quad .5 mL 00:00:00 [place] [facility] IM 6+ MO Branch Pneumococcal 2021-10-04 Completed [facility] o f Polysaccharide, 00:00:00 [place] [facility] PPSV23 (PNEUMOVAX) Branch Influenza Virus 2021-10-04 Completed [facility] Vaccine Quad .5 mL 00:00:00 [place] [facility] IM 6+ MO Branch Pneumococcal 2021-10-04 Completed [facility] o f Polysaccharide, 00:00:00 [place] [facility] PPSV23 (PNEUMOVAX) Branch Influenza Virus 2021-10-04 Completed [facility] Vaccine Quad .5 mL 00:00:00 [place] [facility] IM 6+ MO Branch Pneumococcal 2021-10-04 Completed [facility] o f Polysaccharide, 00:00:00 [place] [facility] PPSV23 (PNEUMOVAX) Branch Influenza Virus 2021-10-04 Completed [facility] Vaccine Quad .5 mL 00:00:00 [place] [facility] 6+ MO Branch Pneumococcal 2021-10-04 Completed [facility] o f Polysaccharide, 00:00:00 [place] [facility] PPSV23 (PNEUMOVAX) Branch Influenza Virus 2021-10-04 Completed [facility] Vaccine Quad .5 mL 00:00:00 [place] [facility] 6+ MO Branch Pneumococcal 2021-10-04 Completed [facility] o f Polysaccharide, 00:00:00 [place] [facility] PPSV23 (PNEUMOVAX) Branch Influenza Virus 2021-10-04 Completed [facility] Vaccine Quad .5 mL 00:00:00 [place] [facility] 6+ MO Branch Pneumococcal 2021-10-04 Completed [facility] o f Polysaccharide, 00:00:00 [place] [facility] PPSV23 (PNEUMOVAX) Branch Influenza Virus 2021-10-04 Completed [facility] Vaccine Quad .5 mL 00:00:00 [place] [facility] 6+ MO Branch Pneumococcal 2021-10-04 Completed [facility] o f Polysaccharide, 00:00:00 [place] [facility] PPSV23 (PNEUMOVAX) Branch Influenza Virus 2021-10-04 Completed [facility] Vaccine Quad .5 mL 00:00:00 [place] [facility] 6+ MO Branch Pneumococcal 2021-10-04 Completed [facility] o f Polysaccharide, 00:00:00 [place] [facility] PPSV23 (PNEUMOVAX) Branch Influenza Virus 2021-10-04 Completed [facility] Vaccine Quad .5 mL 00:00:00 [place] [facility] 6+ MO Branch Pneumococcal 2021-10-04 Completed [facility] o f Polysaccharide, 00:00:00 [place] [facility] PPSV23 (PNEUMOVAX) Branch Influenza Virus 2021-10-04 Completed [facility] Vaccine Quad .5 mL 00:00:00 [facility] IM 6+ MO Branch SARS-COV-2 COVID-19 2021-03-08 Completed Unive rsity of PFIZER VACCINE 00:00:00 [facility] SARS-COV-2 COVID-19 2021-03-08 Completed Unive rsity of PFIZER VACCINE 00:00:00 [facility] SARS-COV-2 COVID-19 2021-03-08 Completed [facility]ive rsity of PFIZER VACCINE 00:00:00 [facility] SARS-COV-2 COVID-19 2021-03-08 Completed [facility]ive rsity of PFIZER VACCINE 00:00:00 [facility] SARS-COV-2 COVID-19 2021-03-08 Completed [facility]ive rsity of PFIZER VACCINE 00:00:00 [facility] SARS-COV-2 COVID-19 2021-03-08 Completed [facility]ive rsity of PFIZER VACCINE 00:00:00 [facility] SARS-COV-2 COVID-19 2021-03-08 Completed [facility]ive rsity of PFIZER VACCINE 00:00:00 [facility] SARS-COV-2 COVID-19 2021-03-08 Completed [facility]ive rsity of PFIZER VACCINE 00:00:00 [facility] SARS-COV-2 COVID-19 2021-03-08 Completed [facility]ive rsity of PFIZER VACCINE 00:00:00 [facility] SARS-COV-2 COVID-19 2021-03-08 Completed [facility]ive rsity of PFIZER VACCINE 00:00:00 [facility] SARS-COV-2 COVID-19 2021-03-08 Completed [facility]ive rsity of PFIZER VACCINE 00:00:00 [facility] SARS-COV-2 COVID-19 2021-03-08 Completed [facility]ive rsity of PFIZER VACCINE 00:00:00 [facility] SARS-COV-2 COVID-19 2021-03-08 Completed [facility]ive rsity of PFIZER VACCINE 00:00:00 [facility] SARS-COV-2 COVID-19 2021-03-08 Completed [facility] rsity of PFIZER VACCINE 00:00:00 [facility] SARS-COV-2 COVID-19 2021-03-08 Completed [facility]ive rsity of PFIZER VACCINE 00:00:00 [facility] SARS-COV-2 COVID-19 2021-03-08 Completed [facility]ive rsity of PFIZER VACCINE 00:00:00 [facility] SARS-COV-2 COVID-19 2021-03-08 Completed [facility]ive rsity of PFIZER VACCINE 00:00:00 [facility] SARS-COV-2 COVID-19 2021-03-08 Completed [facility] rsity of PFIZER VACCINE 00:00:00 [facility] SARS-COV-2 COVID-19 2021-03-08 Completed [facility]ive rsity of PFIZER VACCINE 00:00:00 [facility] SARS-COV-2 COVID-19 2021-03-08 Completed [facility]ive rsity of PFIZER VACCINE 00:00:00 [facility] SARS-COV-2 COVID-19 2021-03-08 Completed [facility]ive rsity of PFIZER VACCINE 00:00:00 [facility] SARS-COV-2 COVID-19 2021-03-08 Completed [facility] rsity of PFIZER VACCINE 00:00:00 [facility] SARS-COV-2 COVID-19 2021-03-08 Completed [facility] rs[facility] of PFIZER VACCINE 00:00:00 [facility] SARS-COV-2 COVID-19 2021-03-08 Completed [facility] rsity of PFIZER VACCINE 00:00:00 [facility] SARS-COV-2 COVID-19 2021-03-08 Completed [facility] rs[facility] of PFIZER VACCINE 00:00:00 [facility] SARS-COV-2 COVID-19 2021-03-08 Completed [facility] rsity of PFIZER VACCINE 00:00:00 [facility] SARS-COV-2 COVID-19 2021-03-08 Completed [facility] rsity of PFIZER VACCINE 00:00:00 [facility] SARS-COV-2 COVID-19 2021-03-08 Completed [facility] rsity of PFIZER VACCINE 00:00:00 [facility] SARS-COV-2 COVID-19 2021-03-08 Completed [facility]ive rsity of PFIZER VACCINE 00:00:00 [facility] SARS-COV-2 COVID-19 2021-03-08 Completed [facility]ive rsity of PFIZER VACCINE 00:00:00 [facility] SARS-COV-2 COVID-19 2021-03-08 Completed [facility]ive rsity of PFIZER VACCINE 00:00:00 [facility] SARS-COV-2 COVID-19 2021-03-08 Completed [facility]ive rsity of PFIZER VACCINE 00:00:00 [facility] SARS-COV-2 COVID-19 2021-03-08 Completed [facility]ive rsity of PFIZER VACCINE 00:00:00 [facility] SARS-COV-2 COVID-19 2021-03-08 Completed [facility]ive rsity of PFIZER VACCINE 00:00:00 [facility] SARS-COV-2 COVID-19 2021-03-08 Completed [facility]ive rsity of PFIZER VACCINE 00:00:00 [facility] SARS-COV-2 COVID-19 2021-03-08 Completed [facility] rsity of PFIZER VACCINE 00:00:00 [facility] SARS-COV-2 COVID-19 2021-03-08 Completed [facility] rsity of PFIZER VACCINE 00:00:00 [facility] SARS-COV-2 COVID-19 2021-03-08 Completed [facility] rsity of PFIZER VACCINE 00:00:00 [facility] SARS-COV-2 COVID-19 2021-03-08 Completed [facility] rsity of PFIZER VACCINE 00:00:00 [facility] SARS-COV-2 COVID-19 2021-03-08 Completed [facility] rsity of PFIZER VACCINE 00:00:00 [facility] SARS-COV-2 COVID-19 2021-03-08 Completed [facility] rsity of PFIZER VACCINE 00:00:00 [facility] SARS-COV-2 COVID-19 2021-03-08 Completed [facility]ive rsity of PFIZER VACCINE 00:00:00 [facility] SARS-COV-2 COVID-19 2021-03-08 Completed [facility] rsity of PFIZER VACCINE 00:00:00 [facility] SARS-COV-2 COVID-19 2021-02-15 Completed [facility] rsity of PFIZER VACCINE 00:00:00 [facility] SARS-COV-2 COVID-19 2021-02-15 Completed [facility] rs[facility] of PFIZER VACCINE 00:00:00 [facility] SARS-COV-2 COVID-19 2021-02-15 Completed [facility] rsity of PFIZER VACCINE 00:00:00 [facility] SARS-COV-2 COVID-19 2021-02-15 Completed [facility]ity of PFIZER VACCINE 00:00:00 [facility] SARS-COV-2 COVID-19 2021-02-15 Completed [facility]ive rsity of PFIZER VACCINE 00:00:00 [facility] SARS-COV-2 COVID-19 2021-02-15 Completed [facility]ity of PFIZER VACCINE 00:00:00 [facility] SARS-COV-2 COVID-19 2021-02-15 Completed [facility]ive rsity of PFIZER VACCINE 00:00:00 [facility] SARS-COV-2 COVID-19 2021-02-15 Completed [facility] rsity of PFIZER VACCINE 00:00:00 [facility] SARS-COV-2 COVID-19 2021-02-15 Completed [facility] rsity of PFIZER VACCINE 00:00:00 [facility] SARS-COV-2 COVID-19 2021-02-15 Completed [facility] of PFIZER VACCINE 00:00:00 [facility] SARS-COV-2 COVID-19 2021-02-15 Completed [facility] rs[facility] of PFIZER VACCINE 00:00:00 [facility] SARS-COV-2 COVID-19 2021-02-15 Completed [facility] of PFIZER VACCINE 00:00:00 [facility] SARS-COV-2 COVID-19 2021-02-15 Completed [facility] of PFIZER VACCINE 00:00:00 [facility] SARS-COV-2 COVID-19 2021-02-15 Completed [facility]ity of PFIZER VACCINE 00:00:00 [facility] SARS-COV-2 COVID-19 2021-02-15 Completed [facility] of PFIZER VACCINE 00:00:00 [facility] SARS-COV-2 COVID-19 2021-02-15 Completed Unive rsity of PFIZER VACCINE 00:00:00 [facility] SARS-COV-2 COVID-19 2021-02-15 Completed [facility]ive rsity of PFIZER VACCINE 00:00:00 [facility] SARS-COV-2 COVID-19 2021-02-15 Completed Unive rsity of PFIZER VACCINE 00:00:00 [facility] SARS-COV-2 COVID-19 2021-02-15 Completed [facility] of PFIZER VACCINE 00:00:00 [facility] SARS-COV-2 COVID-19 2021-02-15 Completed [facility]ive rsity of PFIZER VACCINE 00:00:00 [facility] SARS-COV-2 COVID-19 2021-02-15 Completed Unive rsity of PFIZER VACCINE 00:00:00 [facility] SARS-COV-2 COVID-19 2021-02-15 Completed Unive rsity of PFIZER VACCINE 00:00:00 [facility] SARS-COV-2 COVID-19 2021-02-15 Completed Unive rsity of PFIZER VACCINE 00:00:00 [facility] SARS-COV-2 COVID-19 2021-02-15 Completed Unive rsity of PFIZER VACCINE 00:00:00 [facility] SARS-COV-2 COVID-19 2021-02-15 Completed Unive rsity of PFIZER VACCINE 00:00:00 [facility] SARS-COV-2 COVID-19 2021-02-15 Completed Unive rsity of PFIZER VACCINE 00:00:00 [facility] SARS-COV-2 COVID-19 2021-02-15 Completed Unive rsity of PFIZER VACCINE 00:00:00 [facility] SARS-COV-2 COVID-19 2021-02-15 Completed Unive rsity of PFIZER VACCINE 00:00:00 [facility] SARS-COV-2 COVID-19 2021-02-15 Completed Unive rsity of PFIZER VACCINE 00:00:00 [facility] SARS-COV-2 COVID-19 2021-02-15 Completed Unive rsity of PFIZER VACCINE 00:00:00 [facility] SARS-COV-2 COVID-19 2021-02-15 Completed Unive rsity of PFIZER VACCINE 00:00:00 [facility] SARS-COV-2 COVID-19 2021-02-15 Completed Unive rsity of PFIZER VACCINE 00:00:00 [facility] SARS-COV-2 COVID-19 2021-02-15 Completed Unive rsity of PFIZER VACCINE 00:00:00 [facility] SARS-COV-2 COVID-19 2021-02-15 Completed Unive rsity of PFIZER VACCINE 00:00:00 [facility] SARS-COV-2 COVID-19 2021-02-15 Completed Unive rsity of PFIZER VACCINE 00:00:00 [facility] SARS-COV-2 COVID-19 2021-02-15 Completed Unive rsity of PFIZER VACCINE 00:00:00 [facility] SARS-COV-2 COVID-19 2021-02-15 Completed Unive rsity of PFIZER VACCINE 00:00:00 [facility] SARS-COV-2 COVID-19 2021-02-15 Completed Unive rsity of PFIZER VACCINE 00:00:00 [facility] SARS-COV-2 COVID-19 2021-02-15 Completed Unive rsity of PFIZER VACCINE 00:00:00 [facility] SARS-COV-2 COVID-19 2021-02-15 Completed Unive rsity of PFIZER VACCINE 00:00:00 [facility] SARS-COV-2 COVID-19 2021-02-15 Completed Unive rsity of PFIZER VACCINE 00:00:00 [facility] SARS-COV-2 COVID-19 2021-02-15 Completed Unive rsity of PFIZER VACCINE 00:00:00 [facility] SARS-COV-2 COVID-19 2021-02-15 Completed Unive rsity of PFIZER VACCINE 00:00:00 [facility] Vital Signs Vital Name Observation Time Observation Value Comments Source Systolic blood 2022-07-10 20:52:00 147 mm[Hg] Univer sity of pressure [facility] Diastolic blood 2022-07-10 20:52:00 82 mm[Hg] Unive rsity of pressure [facility] Heart rate 2022-07-10 20:51:00 110 /min [facility] Body temperature 2022-07-10 20:51:00 36.72 Leigh Univ ersity of [facility] Respiratory rate 2022-07-10 20:51:00 17 /min Univ ersity of [facility] Body height 2022-07-10 20:51:00 144.8 cm [facility] Body weight 2022-07-10 20:51:00 91.173 kg [facility] BMI 2022-07-10 20:51:00 43.50 kg/m2 [facility] Oxygen saturation in 2022-07-10 20:51:00 96 /min University of Arterial blood by [place] [employer] donald Pulse oximetry Branch Systolic blood 2022-05-02 19:33:00 166 mm[Hg] Univer [facility]ity of [facility] Diastolic blood 2022-05-02 19:33:00 84 mm[Hg] Unive rsity of pressure [facility] Heart rate 2022-05-02 19:33:00 99 /min [facility] Respiratory rate 2022-05-02 19:33:00 18 /min [facility] Oxygen saturation in 2022-05-02 19:33:00 99 /min University of Arterial blood by [place] [employer] donald Pulse oximetry [facility] Body temperature 2022-05-02 19:31:00 36.39 Leigh [facility] Body weight 2022-05-02 19:31:00 92.534 kg per pt [facility] BMI 2022-05-02 19:31:00 44.15 kg/m2 [facility] Systolic blood 2021-11-08 19:49:00 121 mm[Hg] Univer [facility] Diastolic blood 2021-11-08 19:49:00 74 mm[Hg] [facility] Heart rate 2021-11-08 19:49:00 105 /min [facility] Respiratory rate 2021-11-08 19:49:00 18 /min [facility] Body height 2021-11-08 19:49:00 144.8 cm [facility] Body weight 2021-11-08 19:49:00 100.835 kg [facility] BMI 2021-11-08 19:49:00 48.11 kg/m2 [facility] Oxygen saturation in 2021-11-08 19:49:00 94 /min University of Arterial blood by [facility] Pulse oximetry Branch Systolic blood 2021-11-08 19:49:00 121 mm[Hg] [facility]iver [facility] of [facility] Diastolic blood 2021-11-08 19:49:00 74 mm[Hg] Unive rsity of pressure [facility] Heart rate 2021-11-08 19:49:00 105 /min [facility] Respiratory rate 2021-11-08 19:49:00 18 /min Univ ersity of [facility] Body height 2021-11-08 19:49:00 144.8 cm [facility] Body weight 2021-11-08 19:49:00 100.835 kg [facility] BMI 2021-11-08 19:49:00 48.11 kg/m2 [facility] Oxygen saturation in 2021-11-08 19:49:00 94 /min [facility] blood by [facility] Pulse oximetry Branch Procedures Procedure Date / Time Performing Clinician Source Performed SCANNED LAB RESULTS 2022-07-18 06:01:00 Doctor Unassigned, No [facility] [place] Name [facility] DIABETES TESTING 2022-06-23 06:01:00 Doctor Unassigned, No [facility] [place] REPORTS Name Medical [facility] DIABETES TESTING 2022-06-02 06:01:00 Doctor Unassigned, No [facility] [place] REPORTS Name [facility] DIABETES TESTING 2022-05-15 05:01:00 Doctor Unassigned, No [facility] [place] REPORTS Name Medical Branch EXTERNAL PROVIDER 2022-05-07 05:01:00 Doctor Unassigned, No [facility] [place] RECORDS Name Medical [facility] FLU VACC ([id number]), 6 2022-05-02 19:32:22 EdKwadwo crocker [facility] [place] MO-62 YRS, .5ML, IM, [facility] QUAD (FLUCELVAX) URINALYSIS 2022-04-17 15:43:00 Sunshine Gunderson [facility] PROTEIN CREAT RATIO 2022-04-17 15:43:00 [facility] RANDOM [facility] MICROALBUMIN URINE 2022-04-17 15:43:00 Sunshine Gunderson [facility] CBC WITHOUT DIFF 2022-04-17 14:56:00 Driss Segovia [facility] PHOSPHORUS 2022-04-17 14:56:00 Sunshine Gunderson [facility] MAGNESIUM 2022-04-17 14:56:00 Sunshine Gunderson [facility] BASIC METABOLIC PANEL 2022-04-17 14:56:00 Sunshine Gunderson [facility] (NA, K, CL, CO2, Medical Branch GLUCOSE, BUN, CREATININE, CA) GLYCOSYLATED HEMOGLOBIN 2022-04-17 14:56:00 Kwadwo Méndez [facility] (A1C) [facility] INTACT PTH CALCIUM 2022-04-17 14:56:00 Sunshine Gunderson [facility] Encounters Start End Encounter Admission Attending Care Care Encounter Source Date/Time Date/Time Type Type Clinicians Facility Department ID 2021-05-13 Emergency [facility] [id number] Univers 12:56:03 [facility] 2022-08-15 2022-08-15 Outpatient R [facility] [id number] Univers 15:40:00 15:40:00 KWADWO [facility] 2022-08-13 2022-08-13 Refill [facility] 1.2.840.114 [id number] Univers 00:00:00 00:00:00 Kwadwo ARREDONDO 350.1.13.10 i ty [facility] [place] [id number] [address] 2022-08-11 2022-08-11 Outpatient R [facility] [id number] Univers 08:30:00 08:30:00 [facility] 2022-07-25 2022-07-25 Telephone [facility] 1.2.840.114 [id number] Univers 00:00:00 00:00:00 Kwadwo ARREDONDO 350.1.13.10 i ty [facility] [place] [phone] [address] 2022-07-24 2022-07-24 Telephone [facility] 1.2.840.114 [id number] Univers 00:00:00 00:00:00 Kwadwo ARREDONDO 350.1.13.10 i ty of [facility] [place] [phone] [facility] 044 [facility] 2022-07-18 2022-07-18 Orders Doctor SUNSHINE 1.2.840.114 [id number] Univers 00:00:00 00:00:00 Only Unassigned, JEM 350.1.13.10 [facility] 4.2.7.2.686 [place] [id number] [address] 2022-07-10 2022-07-10 Urgent Lex Dave [facility] 1.2.840.114 [id number] Univers 14:40:00 15:00:00 Care Unknown, [facility] 350.1.13.10 ity of [place] 4.2.7.2.686 [place] YAYO?BLEA [phone] [facility] 370 [facility] OFFICE [facility] 2022-07-10 2022-07-10 Outpatient R [facility] [id number] Univers 14:40:00 14:40:00 LEX ity [facility] 2022-07-10 2022-07-10 Regla HurstRUST 1.2.840.114 [id number] Univers 00:00:00 00:00:00 [facility] 350.1.13.10 it y of [place] 4.2.7.2.686 [place] YAYO?BLEA [phone] [facility] [address] MEDICAL OFFICE [facility] 2022-07-04 2022-07-04 Telephone [facility] 1.2.840.114 [id number] Univers 00:00:00 00:00:00 Kwadwo ARREDONDO 350.1.13.10 i ty [place] [id number] [facility] 044 [facility] 2022-06-24 2022-06-24 Telephone [facility] 1.2.840.114 [id number] Univers 00:00:00 00:00:00 Kwadwo ARREDONDO 350.1.13.10 i ty [place] [id number] Ms dical NAL 044 [facility] 2022-06-23 2022-06-23 Orders Doctor SUNSHINE 1.2.840.114 [id number] Univers 00:00:00 00:00:00 Only Unassigned, JEM 350.1.13.10 ity of [place] [facility] 4.2.7.2.686 [place] [phone] [address] 2022-06-18 2022-06-18 Telephone [facility] 1.2.840.114 [id number] Univers 00:00:00 00:00:00 Kwadwo ARREDONDO 350.1.13.10 i ty [place] 4[place]2.[place].2.[place] [phone] Ms dical NAL [address] [place] [address] 2022-06-18 2022-06-18 Refill [facility] 1.2.840.114 [id number] Univers 00:00:00 00:00:00 Kwadwo ARREDONDO 350.1.13.10 i ty [place].2.[place] [id number] Ms dical NAL 044 [facility] 2022-06-16 2022-06-16 Telephone [facility] 1.2.840.114 [id number] Univers 00:00:00 00:00:00 Kwadwo ARREDONDO 350.1.13.10 i ty [place].2.[place] [id number] Ms dical NAL [address] [place] [address] 2022-06-04 2022-06-04 Refill [facility] 1.2.840.114 [id number] Univers 00:00:00 00:00:00 Kwadwo ARREDONDO 350.1.13.10 i ty [place] 4[place].2.[place] [id number] Ms dical NAL 044 [facility] 2022-06-02 2022-06-02 Telephone [facility] 1.2.840.114 [id number] Univers 00:00:00 00:00:00 Kwadwo ARREDONDO 350.1.13.10 i ty of [facility] 4.2.[place].2.[place] [phone] Ms dic[address] 2022-06-02 2022-06-02 Orders Doctor SUNSHINE 1.2.840.114 [id number] Univers 00:00:00 00:00:00 Only Unassigned, JEM 350.1.13.10 ity [facility] 4.2.7.2.686 [place] [id number] [address] 2022-05-30 2022-05-30 Telephone [facility] 1.2.840.114 [id number] Univers 00:00:00 00:00:00 Kwadwo ARREDONDO 350.1.13.10 i ty [place]2.[place] [id number] [address] 2022-05-29 2022-05-29 Telephone [facility] 1.2.840.114 [id number] Univers 00:00:00 00:00:00 Kwadwo ARREDONDO 350.1.13.10 i ty [place] 4[place]2.[place] [id number] [address] 2022-05-15 2022-05-15 Telephone [facility] 1.2.840.114 [id number] Univers 00:00:00 00:00:00 Kwadwo ARREDONDO 350.1.13.10 i ty [place].2.[place] [id number] Ms dicnv NAL [address] [place] [address] 2022-05-15 2022-05-15 Orders Doctor GONSALEZ 1.2.840.114 [id number] Univers 00:00:00 00:00:00 Only Unassigned, JEM 350.1.13.10 ity of [facility] 4.2.7.2.686 [place] [phone] [address] 2022-05-07 2022-05-07 Orders Doctor GONSALEZ 1.2.840.114 [id number] Univers 00:00:00 00:00:00 Only Unassigned, JEM 350.1.13.10 ity of [place] [facility] 4.2.7.2.686 [place] [id number] [address] 2022-05-02 2022-05-02 Outpatient [facility] [id number] [facility] 14:40:00 16:00:59 PETER itdominga of [facility] 2022-05-02 2022-05-02 Office [facility] 1.2.840.114 [id number] [facility] 14:40:00 16:00:59 Visit Kwadwo ARREDONDO 350.1.13.10 i ty of [place] 4[place]2.[place].2.[place] [id number] Ms dic[address] 2022-05-02 2022-05-02 Telephone [facility] 1.2.840.114 [id number] Univers 00:00:00 00:00:00 Kwadwo ARREDONDO 350.1.13.10 i ty [place] 4[place]2.[place].2.[place] [id number] Ms dical NAL [address] [place] [address] 2022-05-01 2022-05-01 Telephone [facility] 1.2.840.114 [id number] Univers 00:00:00 00:00:00 Kwadwo ARREDONDO 350.1.13.10 i ty [place] 4[place]2.[place].2.[place] [id number] Ms dical NAL [address] [place] [address] 2022-04-28 2022-04-28 RefCritical access hospitaljac[facility]elineAd[facility] 1.2.840.114 [id number] Univers 00:00:00 00:00:00 Kwadwo ARREDONDO 350.1.13.10 i ty [place].2.[place] [id number] Ms dical NAL [address] [place] [address] 2022-04-22 2022-04-22 RefCritical access hospitaljacquelineAdCare [facility] 1.2.840.114 [id number] Univers 00:00:00 00:00:00 Kwadwo ARREDONDO 350.1.13.10 i ty [place].2.[place] [id number] Ms dical NAL 231 [facility] 2022-04-21 2022-04-21 Telephone AmandaRUST 1.2.840.114 [id number] Univers 00:00:00 00:00:00 Kwadwo ARREDONDO 350.1.13.10 i ty of [facility] 4.2.7.2.[place] [id number] Ms dical NAL 044 [facility] 2022-04-17 2022-04-17 Health Researcher Delmi, Tammy Lab Main [facility] 1.2.8 40.114 [id number] Univers 10:00:00 10:15:00 Visit Kwadwo Méndez 350.1.13.10 ity of [place]2.[place].2.[place] [phone] Ms dical NAL 353 [facility] 2022-04-17 2022-04-17 Outpatient [facility] [id number] Univers 10:00:00 10:00:00 KWADWO itdominga [facility] 2022-04-17 2022-04-17 [facility] 1.2.637.153 [id number] Univers 00:00:00 00:00:00 Management [facility] 350.1.13.10 ity of [facility] [place]2.7.2.[place] [id number] [address] 2022-04-17 2022-04-17 Telephone [facility] 1.2.840.114 [id number] Univers 00:00:00 00:00:00 Kwadwo ARREDONDO 350.1.13.10 i ty of [facility] 4.2.7.2.[place] [id number] Ms dical NAL 044 [facility] 2022-04-14 2022-04-14 Telephone [facility] 1.2.840.114 [id number] Univers 00:00:00 00:00:00 Kwadwo ARREDONDO 350.1.13.10 i ty of [facility] 4.2.7.2.[place] [id number] Ms dical NAL 231 [facility] 2022-04-11 2022-04-11 Outpatient R LUCRETIA ILND [facility] [id number] Univers 15:30:00 15:30:00 [facility]22-04-11 2022-04-11 Telephone JAILENE Segovia 1.2.840.114 [id number] Univers 00:00:00 00:00:00 [facility] 350.1.13.10 i ty of [facility] [place]2.7.2.[place] [id number] [address] 2022-04-10 2022-04-10 Outpatient R AMANDA [facility] [id number] Univers 14:40:00 14:40:00 KWADWO dominga [facility] 2022-04-07 2022-04-07 Outpatient R NEPTALI [facility] [id number] Univers 08:30:00 08:30:00 SUNSHINE [facility] 2022-04-02 2022-04-02 Outpatient R [facility] [id number] Univers 13:00:00 13:00:00 [facility] 2022-03-28 2022-03-28 Regla MéndezRUST .2.840.114 [id number] Univers 00:00:00 00:00:00 Kwadwo ARREDONDO 350.1.13.10 i ty [place].2.[place] [phone] Ms dical NAL 044 Branch [facility] 2022-03-25 2022-03-25 Outpatient R REJISIGEOVANY [facility] [id number] Univers 13:00:00 13:00:00 JANEE burnette o f [facility] 2022-03-25 2022-03-25 Regla MéndezRUST .2.840.114 [id number] Univers 00:00:00 00:00:00 Kwadwo ARREDONDO 350.1.13.10 i ty [place]2.[place] [id number] Ms dical NAL 044 Branch [facility] 2022-03-21 2022-03-21 [facility] 1.2.840.114 [id number] Univers 00:00:00 00:00:00 Kwadwo ARREDONDO 350.1.13.10 i ty of [facility] 4.2.7.2.[place] [id number] Ms dical NAL 044 [facility] 2022-03-13 2022-03-13 [facility] 12.840.114 [id number] Univers 00:00:00 00:00:00 Kwadwo ARREDONDO 350.1.13.10 i ty of [facility] 4.2.7.2.[place] [id number] Ms dicnv NAL 044 [facility] 2022-03-05 2022-03-05 [facility] 1.2.840.114 [id number] Univers 00:00:00 00:00:00 Kwadwo ARREDONDO 350.1.13.10 i ty of [facility] 4.2.7.2.[place] [phone] Ms dical NAL 044 [facility] 2022-02-25 2022-02-25 [facility] 1.2.840.114 [id number] Univers 00:00:00 00:00:00 Kwadwo ARREDONDO 350.1.13.10 i ty of [facility] 4.2.7.2.[place] [id number] [facility] 225 [facility] 2022-02-13 2022-02-13 [facility] 12.840.114 [id number] Univers 00:00:00 00:00:00 Kwadwo ARREDONDO 350.1.13.10 i ty of [place] [id number] [facility] 044 [facility] 2022-02-12 2022-02-12 Rachel HURST [facility] [id number] Univers 12:00:00 12:00:00 CINDY burnette [facility] 2022-02-12 2022-02-12 Telephone AmandaRUST 12.840.114 [id number] Univers 00:00:00 00:00:00 Kwadwo ARREDONDO 350.1.13.10 i ty [place] [id number] [address] 2022-02-06 2022-02-06 Orders Doctor SUNSHINE 1.2.840.114 [id number] Univers 00:00:00 00:00:00 Only Unassigned, JEM 350.1.13.10 ity of [place] [facility] 4.2.7.2.686 [place] [id number] [address] 2022-02-04 2022-02-04 Outpatient R MAURICIO, [facility] [id number] Univers 12:00:00 12:00:00 WENTONG ity [facility] 2022-02-03 2022-02-03 Telephone [facility] 1.2.840.114 [id number] Univers 00:00:00 00:00:00 Kwadwo ARREDONDO 350.1.13.10 i ty of [place] [id number] [address] 2022-02-03 2022-02-03 Telephone [facility] 1.2.840.114 [id number] Univers 00:00:00 00:00:00 Kwadwo ARREDONDO 350.1.13.10 i ty of [place].2.[place] [id number] [address] 2022-01-31 2022-01-31 Telephone [facility] 1.2.840.114 [id number] Univers 00:00:00 00:00:00 Kwadwo ARREDONDO 350.1.13.10 i ty of [place].2.[place] [id number] [address] 2022-01-31 2022-01-31 Telephone [facility] 1.2.840.114 [id number] Univers 00:00:00 00:00:00 Kwadwo ARREDONDO 350.1.13.10 i ty of [place].2.[place] [id number] Ms dical NAL [address] [place] [address] 2022-01-31 2022-01-31 Telephone AmandaRUST 1.2.840.114 [id number] Univers 00:00:00 00:00:00 Kwadwo ARREDONDO 350.1.13.10 i ty of [place]2.[place] [id number] [address] 2022-01-28 2022-01-28 Telephone [facility] 1.2.840.114 [id number] Univers 00:00:00 00:00:00 Kwadwo ARREDONDO 350.1.13.10 i ty [place].2.[place] [id number] [address] 2022-01-22 2022-01-22 Emergency X [facility] ERT [id number] Univers 20:32:00 21:50:00 CHEVY [facility] 2022-01-22 2022-01-22 Emergency [facility] 1.2.542.955 [id number] Univers 20:32:00 21:50:00 Chevy ARREDONDO 350.1.13.10 ity [facility] [place]2.[place] [id number] [address] 2022-01-08 2022-01-08 Outpatient [facility] [id number] Univers 15:20:00 15:20:00 KWADWO [facility] 2022-01-08 2022-01-08 Outpatient R AMANDA [facility] [id number] Univers 15:20:00 15:20:00 KWADWO dominga [facility] 2022-01-07 2022-01-07 Outpatient R DANE [facility] [id number] Univers 13:00:00 13:00:00 JUAN RAMON dominga [facility] 2022-01-02 2022-01-02 Refill AmandaRUST 1.2.840.114 [id number] Univers 00:00:00 00:00:00 Kwadwo ARREDONDO 350.1.13.10 i ty [place] [id number] Ms dical NAL [address] [place] [address] 2021-12-12 2021-12-12 Outpatient R DANE [facility] [id number] Univers 08:00:00 08:00:00 JUAN RAMON burnette [facility] 2021-11-21 2021-11-21 Orders Doctor SUNSHINE 1.2.840.114 [id number] Univers 00:00:00 00:00:00 Only Unassigned, JEM 350.1.13.10 [facility] 4.2.7.2.686 [place] [id number] [address] 2021-11-17 2021-11-17 Refill AmandaRUST 1..840.114 [id number] Univers 00:00:00 00:00:00 Kwadwo ARREDONDO 350.1.13.10 i [place] [phone] [address] 2021-11-11 2021-11-11 [facility] [id number] Univers 08:30:00 08:30:00 JUAN RAMON dominga [facility] 2021-11-08 2021-11-08 Out[facility] [id number] Univers 14:40:00 15:16:44 KWADWO vasile [facility] 2021-11-08 2021-11-08 Office AmandaRUST 1..840.114 [id number] Univers 14:40:00 15:16:44 Visit Kwadwo ARREDONDO 350.1.13.10 i [place] [id number] [address] 2021-11-08 2021-11-08 Out[facility] [id number] Univers 14:40:00 15:16:44 KWADWO palmdominga [facility] 2021-11-08 2021-11-08 Office AmandaRUST 1..840.114 [id number] Univers 14:40:00 15:16:44 Visit Kwadwo MARIA ELENA 350.1.13.10 i [place] [phone] Ms dical NAL 044 [facility] 2021-10-29 2021-10-29 Telephone [facility] 1.2.840.114 [id number] Univers 00:00:00 00:00:00 Kwadwo ARREDONDO 350.1.13.10 i [place] [id number] Ms dical NAL [address] [place] [address] 2021-10-17 2021-10-17 Telephone [facility] 1.2.840.114 [id number] Univers 00:00:00 00:00:00 Kwadwo ARREDONDO 350.1.13.10 i [place] [phone] Ms dical NAL [address] [place] [address] 2021-10-17 2021-10-17 Orders Doctor SUNSHINE 1.2.840.114 [id number] Univers 00:00:00 00:00:00 Only Unassigned, JEM 350.1.13.10 ity of [place] [facility] 4.2.7.2.686 Chon as [phone] [address] 2021-10-16 2021-10-16 Outpatient Jolie HAYES [facility] [id number] Univers 08:15:00 08:15:00 DARIONA ity o f [facility] 2021-10-16 2021-10-16 Outpatient Jolie HAYES [facility] [id number] Univers 08:15:00 08:15:00 DARIONA ity o f [facility] 2021-10-15 2021-10-15 Outpatient Jolie HURST [facility] [id number] Univers 11:00:00 11:00:00 KEYSHAWNONG ity [facility] 2021-10-15 2021-10-15 Outpatient Jolie HURST [facility] [id number] Univers 11:00:00 11:00:00 [facility] 2021-10-15 2021-10-15 [facility] 1.2.840.114 [id number] Univers 00:00:00 00:00:00 Kwadwo ARREDONDO 350.1.13.10 i ty of [place] [phone] [address] 2021-10-10 2021-10-10 Telephone [facility] 1.2.840.114 [id number] Univers 00:00:00 00:00:00 Kwadwo ARREDONDO 350.1.13.10 i ty of [place] [id number] [address] 2021-10-09 2021-10-09 Outpatient R ABIGAIL [facility] [id number] Univers 09:00:00 09:00:00 DAYTON fish [facility] 2021-10-09 2021-10-09 Telephone [facility] 1.2.840.114 [id number] Univers 00:00:00 00:00:00 Kwadwo ARREDONDO 350.1.13.10 i ty of [place] [id number] [address] 2021-10-07 2021-10-07 Telephone [facility] 1.2.840.114 [id number] Univers 00:00:00 00:00:00 Kwadwo ARREDONDO 350.1.13.10 i ty of [place] [id number] [address] 2021-10-04 2021-10-04 Outpatient [facility] [id number] Univers 16:20:00 16:41:30 KWADWO burnette [facility] 2021-10-04 2021-10-04 Office [facility] 1.2.840.114 [id number] [facility] 16:20:00 16:41:30 Visit Kwadwo ARREDONDO 350.1.13.10 i ty [place] [phone] [address] 2021-10-04 2021-10-04 Outpatient R RENÉMARCO [facility] [id number] Univers 16:20:00 16:41:30 KWADWO burnette [facility] 2021-09-12 2021-09-12 Outpatient [facility] [id number] Univers 15:30:00 15:30:00 , SUNSHINE burnette [facility] 2021-09-09 2021-09-09 Outpatient R [facility] [id number] Univers 15:30:00 15:30:00 , SUNSHINE burnette [facility] 2021-08-30 2021-08-30 Telephone [facility] 1.2.840.11 [id number] Univers 00:00:00 00:00:00 , Sunshine MALDONADO 350.1.13.10 i ty of [facility] [place].2.[place] [id number] [address] 2021-08-28 2021-08-28 [facility]phone [facility] 1.2.840.114 [id number] Univers 00:00:00 00:00:00 Kwadwo ARREDONDO 350.1.13.10 i ty of [place] [phone] [address] 2021-08-08 2021-08-08 Outpatient R [facility] [id number] Univers 13:00:00 13:58:03 KWADWO vasile [facility] 2021-08-08 2021-08-08 Office AmandaRUST 1.2.840.114 [id number] Univers 13:00:00 13:58:03 Visit Kwadwo ARREDONDO 350.1.13.10 i ty [place] [phone] [address] 2021-08-08 2021-08-08 Outpatient R R[facility]ÉZAKIAWILLIAMSMER[facility] 1037 [id number] Univers 13:00:00 13:58:03 KWADWO vasile [facility] 2021-08-082021-08-08 Outpatient R AMANDA [facility] [id number] Univers 13:00:00 13:58:03 KWADWO vasile [facility] 2021-08-08 2021-08-08 Health Researcher Delmi, Tammy Lab Main [facility] 1.2.8 40.114 [id number] Univers 12:30:00 12:45:00 Visit Kwadwo Méndez 350.1.13.10 ity [facility] [place] [phone] Ms dical NAL 353 [facility] 2021-08-08 2021-08-08 Orders Doctor SUNSHINE 1.2.840.114 [id number] Univers 00:00:00 00:00:00 Only Unassigned, JEM 350.1.13.10 ity [facility] 4.2.7.2.686 Cohn as [phone] [address] 2021-08-07 2021-08-07 Outpatient R [facility] [id number] Univers 11:20:00 11:20:00 KWADWO burnette [facility] 2021-08-07 2021-08-07 Outpatient R [facility] [id number] Univers 11:20:00 11:20:00 KWADWO dominga [facility] 2021-07-19 2021-07-19 Telephone AmandaRUST 1.2.840.114 [id number] Univers 00:00:00 00:00:00 Kwadwo ARREDONDO 350.1.13.10 i ty [facility] 4.2.[place].2.[place] [phone] [facility] [address] [facility] 2021-07-17 2021-07-17 Outpatient R [facility] [id number] Univers 15:20:00 15:20:00 KWADWO dominga [facility] 2021-07-13 2021-07-13 Emergency X DEVONTE [facility] ERT [id number] Univers 18:37:00 23:49:00 ERMA burnette [facility] 2021-07-13 2021-07-13 Emergency WhitneyRUST 1.2.953.082 [id number] Univers 18:37:00 23:49:00 Erma S MARIA ELENA 350.1.13.10 i ty [place] [phone] [facility] [address] 2021-07-09 2021-07-09 Telephone [facility] 1.2.840.114 [id number] Univers 00:00:00 00:00:00 Kwadwo ARREDONDO 350.1.13.10 i ty of [place] [phone] Ms dical NAL 231 [facility] 2021-06-05 2021-06-05 Office MauricioRUST 1.2.840.114 [id number] Univers 10:00:00 11:11:23 Visit [facility] 350.1.13.10 it y of [place] 4.2.7.2.686 Chon as YAYO?BLEA [phone] Ms roseannenv PAULINA 220 [facility] OFFICE [facility] 2021-06-05 2021-06-05 Outpatient R [facility] [id number] Univers 10:00:00 11:11:23 [facility] 2021-06-05 2021-06-05 Outpatient R [facility] [id number] Univers 10:00:00 10:00:00 [facility] 2021-06-05 2021-06-05 Outpatient R [facility] [id number] Univers 10:00:00 10:00:00 [facility] 2021-06-05 2021-06-05 Refill RenézakiajacquelineAdCare [facility] 1.2.840.114 [id number] Univers 00:00:00 00:00:00 Kwadwo ARREDONDO 350.1.13.10 i ty of [place] [phone] Ms dical [place] [address] [facility] 2021-05-31 2021-05-31 Orders Doctor GONSALEZ 1.2.840.114 [id number] Univers 00:00:00 00:00:00 Only Unassigned, JEM 350.1.13.10 ity of [facility][1] 4.2.7.2.686 Chon as [id number] [address] 2021-05-28 2021-05-28 Refdipti GarciaRUST 1.2.840.114 [id number] Univers 00:00:00 00:00:00 Verónica ARREDONDO 350.1.13.10 ity of [place] [phone] [facility] NAL [address] [place] [address] 2021-05-23 2021-05-23 [facility] 1.2.840.114 [id number] Univers 00:00:00 00:00:00 Kwadwo ARREDONDO 350.1.13.10 i ty of [place] [id number] [address] 2021-05-23 2021-05-23 [facility] GarciaRUST 1.2.840.114 [id number] Univers 00:00:00 00:00:00 Verónica ARREDONDO 350.1.13.10 ity of [place] [id number] [address] 2021-05-23 2021-05-23 [facility] AmandaRUST 1.2.840.114 [id number] Univers 00:00:00 00:00:00 Kwadwo ARREDONDO 350.1.13.10 i ty of [place] [id number] [address] 2021-05-19 2021-05-19 [facility] MéndezRUST 1.2.840.114 [id number] Univers 00:00:00 00:00:00 Kwadwo ARREDONDO 350.1.13.10 i ty [place] [id number] [address] 2021-05-17 2021-05-17 Manjit GarciaRUST 1.2.840.114 [id number] Univers 00:00:00 00:00:00 Verónica ARREDONDO 350.1.13.10 ity of [place] [phone] Ms dical NAL 231 [facility] 2021-05-17 2021-05-17 Telephone [facility] 1.2.840.114 [id number] Univers 00:00:00 00:00:00 Kwadwo ARREDONDO 350.1.13.10 i ty of [place] [id number] [facility] 231 [facility] 2021-05-16 2021-05-16 Telephone [facility] 1.2.840.114 [id number] Univers 00:00:00 00:00:00 Kwadwo ARREDONDO 350.1.13.10 i ty of [place] [phone] Ms dicnv NAL [address] [place] [address] 2021-05-14 2021-05-14 Orders Doctor SUNSHINE 1.2.840.[id number] [place] [address] 00:00:00 00:00:00 Only Unassigned, JEM 350.1.13.10 ity of [place] [facility] 4.2.7.2.686 Chon as [phone] [address] 2021-05-13 2021-05-13 Telephone [facility] 1.2.840.114 [id number] Univers 00:00:00 00:00:00 Kwadwo ARREDONDO 350.1.13.10 i ty of [place] [phone] Ms dical NAL 044 [facility] 2021-05-10 2021-05-10 Telephone [facility] 1.2.840.114 [id number] Univers 00:00:00 00:00:00 Kwadwo ARREDONDO 350.1.13.10 i ty of [place] [phone] Ms dical NAL 044 [facility] 2021-05-10 2021-05-10 Telephone [facility] 1.2.840.114 [id number] Univers 00:00:00 00:00:00 Kwadwo MARIA ELENA 350.1.13.10 i ty of [place] [id number] [address] 2021-05-06 2021-05-06 Telephone [facility] 1.2.840.114 [id number] Univers 00:00:00 00:00:00 Kwadwo Maria Elena 350.1.13.10 i ty of [place] [id number] [address] 2021-05-01 2021-05-01 Office [facility] 1.2.840.114 [id number] Univers 11:26:16 12:49:01 Visit Kwadwo Arredondo 350.1.13.10 i ty of [place].2.[place] [phone] [address] 2021-05-01 2021-05-01 Outpatient R [facility] [id number] Univers 11:20:00 12:49:01 KWADWO burnette [facility] 2021-05-01 2021-05-01 Outpatient R [facility] [id number] Univers 11:20:00 11:20:00 KWADWO burnette [facility] 2021-05-01 2021-05-01 Telephone [facility] 1.2.840.114 [id number] Univers 00:00:00 00:00:00 Kwadwo [place] 350.1.13.10 i ty of [place] [phone] [address] 2021-05-01 2021-05-01 Orders Doctor GONSALEZ 1.2.840.114 [id number] Univers 00:00:00 00:00:00 Only Unassigned, JEM 350.1.13.10 ity of [place] [facility] 4.2.7.2.686 Chon as [phone] [address] 2021-05-01 2021-05-01 Telephone [facility] 1.2.840.114 [id number] Univers 00:00:00 00:00:00 Kwadwo ARREDONDO 350.1.13.10 i ty of [place].2.[place] [id number] Ms dical [address] 2021-05-01 2021-05-01 Telephone [facility] 1.2.840.114 [id number] Univers 00:00:00 00:00:00 Kwadwo ARREDONDO 350.1.13.10 i ty of [place].2.[place] [phone] Ms dic[address] 2021-04-16 2021-04-16 Telephone [facility] 1.2.840.114 [id number] Univers 00:00:00 00:00:00 Kwadwo Arredondo 350.1.13.10 i ty of [place] [phone] Ms dic[address] 2021-03-30 2021-03-30 Orders Doctor SUNSHINE 1.2.840.114 [id number] Univers 00:00:00 00:00:00 Only Unassigned, JEM 350.1.13.10 ity of [place] [facility] 4.2.7.2.686 Chon as [phone] [address] 2021-03-20 2021-03-20 Outpatient R AMANDA [facility] [id number] Univers 13:20:00 13:20:00 KWADWO burnette [facility] 2021-03-11 2021-03-11 Outpatient R AMANDA [facility] [id number] Univers 12:30:00 12:30:00 KWADWO burnette [facility] 2021-03-11 2021-03-11 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 2021-03-11 2021-03-11 Orders Doctor SUNSHINE 1.2.840.114 [id number] Univers 00:00:00 00:00:00 Only Unassigned, JEM 350.1.13.10 ity of [place] [facility] 4.2.7.2.686 Chon as [id number] [facility] [address] 2021-03-05 2021-03-05 Orders Doctor SUNSHINE 1.2.840.114 [id number] Univers 00:00:00 00:00:00 Only Unassigned, JEM 350.1.13.10 ity of [place] [facility] 4.2.7.2.686 Chon as [phone] [address] 2021-02-20 2021-02-20 Out[facility] [id number] Univers 08:00:00 08:00:00 KWADWO [facility] 2020-12-14 2020-12-14 Outpatient R [facility] [id number] Univers 09:40:00 09:40:00 KWADWO [facility] 2020-09-11 2020-09-11 Outpatient R [facility] [id number] Univers 09:20:00 09:20:00 KWADWO [facility] 2020-08-15 2020-08-15 Outpatient R ABIGAIL [facility] [id number] Univers 00:00:00 00:00:00 DAYTON burnette o f [facility] 2020-08-06 2020-08-06 Outpatient R BALWINDER [facility] [id number] Univers 13:30:00 13:30:00 JESSICA [facility] 2020-08-06 2020-08-06 Outpatient R ADITYA, [facility] [id number] Univers 12:00:00 12:00:00 SHALONDA [facility] 2020-08-02 2020-08-02 Outpatient Jolie [facility] [id number] Univers 14:45:00 14:45:00 DAYTON burnette o f [facility] 2020-06-13 2020-06-13 Outpatient R AMANDA, [facility] [id number] Univers 09:00:00 09:00:00 KWADWO burnette [facility] 2020-06-11 2020-06-11 Outpatient R ADITYA, [facility] [id number] Univers 10:00:00 10:00:00 SHALONDA vasile [facility] 2020-05-29 2020-05-29 Outpatient R RENÉMARCO A, [facility] [id number] Univers 08:40:00 08:40:00 KWADWO vasile [facility] 2020-04-19 2020-04-19 Outpatient R ILEANA, [facility] [id number] Univers 13:00:00 13:00:00 KARINA dominga [facility] 2020-03-27 2020-03-27 Outpatient R RENÉZAKIAJACQUELINECAMRYN, [facility] [id number] Univers 14:40:00 14:40:00 KWADWO burnette [facility] 2020-03-13 2020-03-13 Outpatient R RENÉMARCO A, [facility] [id number] Univers 14:40:00 14:40:00 KWADWO burnette [facility] 2020-03-13 2020-03-13 Outpatient R ZENAIDA, [facility] [id number] Univers 09:00:00 09:00:00 YVES vasile [facility] 2020-03-12 2020-03-12 Outpatient R KARON, [facility] [id number] Univers 09:00:00 09:00:00 JESSICA vasile [facility] 2020-03-08 2020-03-08 Outpatient R AMANDA, [facility] [id number] Univers 16:00:00 16:00:00 KWADWO dominga [facility] 2020-03-05 2020-03-05 Outpatient R ANA, [facility] [id number] Univers 13:00:00 13:00:00 MARIYA burnette o f [facility] 2020-03-05 2020-03-05 Outpatient R KARON, [facility] [id number] Univers 09:00:00 09:00:00 JESSICA vasile [facility] 2020-02-28 2020-02-28 Outpatient R [facility] [id number] Univers 10:30:00 10:30:00 [facility] 2020-02-27 2020-02-27 Outpatient R ADITYA, [facility] [id number] Univers 13:30:00 13:30:00 SHALONDA [facility] 2020-02-24 2020-02-24 Outpatient R RENÉMARCO A, [facility] [id number] Univers 14:40:00 14:40:00 KWADWO [facility] 2020-02-15 2020-02-15 Outpatient R ZENAIDA, [facility] [id number] Univers 09:40:00 09:40:00 YVES [facility] 2020-02-02 2020-02-02 Telephone MiltonRUST 1.2.539.002 [id number] 00:00:00 00:00:00 Burak Arredondo 350.1.13.10 [place] 4.2.7.2.686 Professio [id number] [address] 2020-02-02 2020-02-02 Telephone AnaRUST 1.2.840.114 [id number] 00:00:00 00:00:00 Wondiful A [place] 350.1.13.10 [place] 4.2.7.2.686 Professio [id number] [address] 2020-02-02 2020-02-02 Telephone AnaRUST 1.2.840.114 [id number] 00:00:00 00:00:00 [place]iful [place] 350.1.13.10 [place] 4.2.7.2.686 Professio [phone] [address] 2020-01-26 2020-01-26 Outpatient R [facility] [id number] Univers 11:20:00 11:20:00 [facility] 2019-12-01 2019-12-01 Outpatient [facility] [id number] Univers 13:00:00 13:00:00 JAY [facility] 2019-11-03 2019-11-03 Outpatient R [facility] [id number] Univers 12:40:00 12:40:00 YVESCARLOS A burnette [facility] 2019-10-17 2019-10-17 Outpatient R ANA, [facility] [id number] Univers 10:35:00 10:35:00 MARIYA burnette o polina [facility] 2019-09-01 2019-09-01 Outpatient R WANDA, [facility] [id number] Univers 15:00:00 15:00:00 ANALIA burnette [facility] 2019-06-12 2019-06-13 Emergency X HANSA, [facility] ERT [id number] Univers 23:58:56 03:30:00 CHEVY vasile [facility] Results Test Description Test Time Test Comments Results Result Comments Source INTACT PTH CALCIUM GROUP 2022-04-18 18:45:16 Test Item Value Reference Range Interpretation Comme nts PTH-INTACT (test code = 70.0 pg/mL 6385800552) PTH-CA Interpretation (test code PTH IS Appropriate for Calcium = 1916353221) CALCIUM (test code = 2267948292) 9.5 mg/dL 8.6-10.6 [facility] (A1C)2022-04-17 16:07:25 Test Item Value Reference Range Interpretation Comments HGB A1C (test code = 6.4 % 4-5.7 H 4548-4) LIEN (test code = LIEN) Reference RangesNormal: <5.7%Prediabetes: 5.7 - 6.4%Diabetes: > 6.5% Lab Interpretation (test Abnormal code = 61978-3) [facility]IN (A1C)2022-04-17 16:07:25 Test Item Value Reference Range Interpretation Comments HGB A1C (test code = 6.4 % 4-5.7 H 4548-4) LIEN (test code = LIEN) Reference RangesNormal: <5.7%Prediabetes: 5.7 - 6.4%Diabetes: > 6.5% Lab Interpretation (test Abnormal code = 32227-1) [facility]OL[facility] PANEL (NA, K, CL, CO2, GLUCOSE, BUN, CREATININE, CA)2022-04-17 16:07:09 Test Item Value Reference Range Interpretation Comments NA (test code = 141 mmol/L 135-145 3983541483) K (test code = 6.5 mmol/L 3.5-5 HH 0804305954) CL (test code = 103 mmol/L 98-108 0967305518) CO2 TOTAL (test code = 25 mmol/L 23-31 6751237372) AGAP (test code = 2-16 4065416051) BUN (test code = 47 mg/dL 7-23 H 9959947019) GLUCOSE (test code = 124 mg/dL 70-110 H 3420125340) CREATININE (test code = 2.07 mg/dL 0.5-1.04 H 7899186320) CALCIUM (test code = 9.5 mg/dL 8.6-10.6 8637343478) eGFR (test code = mL/min/1.73m2 8911157819) LIEN (test code = LIEN) Association of [...] tests). Lab Interpretation Abnormal (test code = 04791-4) [facility] METABOLIC PANEL (NA, K, CL, CO2, GLUCOSE, BUN, CREATININE, CA)2022-04-17 16:07:09 Test Item Value Reference Range Interpretation Comments NA (test code = 141 mmol/L 135-145 2857141590) K (test code = 6.5 mmol/L 3.5-5 HH 5883821956) CL (test code = 103 mmol/L 98-108 0258700172) CO2 TOTAL (test code = 25 mmol/L 23-31 7109173083) AGAP (test code = 2-16 4930590945) BUN (test code = 47 mg/dL 7-23 H 1974764481) GLUCOSE (test code = 124 mg/dL 70-110 H 9121669430) CREATININE (test code = 2.07 mg/dL 0.5-1.04 H 6467798553) CALCIUM (test code = 9.5 mg/dL 8.6-10.6 3707866122) eGFR (test code = mL/min/1.73m2 6056215707) LIEN (test code = LIEN) Association of [...] tests). Lab Interpretation Abnormal (test code = 29104-1) [facility]2022-10-06 16:02:04 Test Item Value Reference Range Interpretation Comments MAGNESIUM (test code = 3249021806) 1.5 mg/dL 1.7-2.4 L Lab Interpretation (test code = Abnormal 54143-9) [facility]2022-10-06 16:02:04 Test Item Value Reference Range Interpretation Comments MAGNESIUM (test code = 5243587436) 1.5 mg/dL 1.7-2.4 L Lab Interpretation (test code = Abnormal 75012-1) [facility]2022-10-06 16:01:47 Test Item Value Reference Range Interpretation Comments PHOSPHORUS (test code = 2198042371) 4.5 mg/dL 2.5-5 Lab Interpretation (test code = Normal 71921-1) [facility]2022-10-06 16:01:47 Test Item Value Reference Range Interpretation Comments PHOSPHORUS (test code = 3503426369) 4.5 mg/dL 2.5-5 Lab Interpretation (test code = Normal 34249-5) [facility] CenterCB WITHOUT [id number] 15:05:42 Test Item Value Reference Range Interpretation Comments WBC (test code = 6690-2) See_Comment [A utomated message] The system [employer] generated this result transmit perla reference range : 4.30 - 11.10 10*3/?L. The reference range was not used to interpret this result as normal/abnormal . RBC (test code = 789-8) See_Comment L [Au tomated message] The system [employer] generated this result transmit perla reference range : 3.93 - 5.25 10* 6/?L. The reference r mary was not used to interpret this result as normal/abnormal . HGB (test code = 718-7) 7.9 g/dL 11.6-15 L HCT (test code = 4544-3) 26.4 % 35.7-45.2 L MCH (test code = 785-6) 27.8 pg 25.9-32.8 MCV (test code = 787-2) 93.0 fL 80.6-95.5 MCHC (test code = 786-4) 29.9 g/dL 31.6-35.1 L PLT (test code = 777-3) See_Comment H [Au tomated message] The system [employer] generated this result transmit perla reference range : 166 - 358 10*3/?L. The reference range was not used to interpret this result as normal/abnormal . MPV (test code = 8.5 fL 9.5-12.9 L 08610-9) RDW-CV (test code = 17.9 % 12-15.5 H 788-0) RDW-SD (test code = 59.2 fL 39-49.9 H 53391-6) NRBC x10^3 (test code = See_Comment [Au tomated message] [id number]) The system [employer] generated this result transmit perla reference range : 10*3/?L. The reference range was not used to interpret this result as normal/abnormal . NRBC/100 WBC (test code See_Comment [Au tomated message] = [id number]) The system [facility] generated this result transmit perla reference range : 0.0 - 10.0 /100 WBC s. The reference r mary was not used to interpret this result as normal/abnormal . IPF % (test code = [id number]) Lab Interpretation (test Abnormal code = 55423-5) [facility]
[2022-08-20] MEDS ORDERED: MORPHINE 4 MG/ML SYR ONE (15:52)
[2022-08-20] MEDS ORDERED: NA CHLORIDE 0.9% 1,000 ML ONE (15:52)
[2022-08-20] MEDS ORDERED: ONDANSETRON 4 MG/2 ML VIAL ONE (15:52)
--- NOTE | 2022-08-20 17:03 | ER ---
Nurse's Notes [facility] Name: Barb Cortez Age: 46 yrs Sex: Female : 1975 Arrival Date: 08/20/2022 Time: 15:07 Bed 10 Private MD: Diagnosis: Headache Presentation: 08/20 15:20 Chief complaint: Patient states: migraine that began 4 days ago. Coronavirus screen: aa5 headache. Ebola Screen: Patient denies travel to an Ebola-affected area in the 21 days before illness onset. Initial Sepsis Screen: Does the patient meet any 2 criteria? HR > 90 bpm. Does the patient have a suspected source of infection? No. Patient's initial sepsis screen is negative. Risk Assessment: Do you want to hurt yourself or someone else? Patient reports no desire to harm self or others. Onset of symptoms was August 2022. 15:20 Acuity: HARI 3 aa5 15:20 Method Of Arrival: Ambulatory aa5 Triage Assessment: 16:05 Headache History: The patient has had previous headaches. General: Appears in no ap3 apparent distress. Behavior is calm, cooperative, appropriate for age. Pain: Complains of pain in head Pain currently is 7 out of 10 on a pain scale. Pain began gradually, 2-3 days ago. Also complains of no other associated symptoms. Neuro: Level of Consciousness is awake, alert, obeys commands, Oriented to person, place, time, situation, Speech is normal, Facial symmetry appears normal. Cardiovascular: Patient's skin is warm and dry. Respiratory: Airway is patent Respiratory effort is even, unlabored, Respiratory pattern is regular, symmetrical. 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 - Social history:: Smoking status: unknown. Screenin:05 [facility] ED Fall Risk Assessment (Adult) History of falling in the last 3 months, ap3 including since admission No falls in past 3 months (0 pts) Confusion or Disorientation No (0 pts) Intoxicated or Sedated No (0 pts) Impaired Gait Yes (1 pt) Mobility Assist Device Used Yes (1 pt) Altered Elimination No (0 pt) Score/Fall Risk Level 0 - 2 = Low Risk. Abuse screen: Denies threats or abuse. Nutritional screening: No deficits noted. Tuberculosis screening: No symptoms or risk factors identified. Vital Signs: 15:20 BP 142 / 66; Pulse 96; Resp 18 S; Temp 98.3(TE); Pulse Ox 100% on R/A; aa5 ED Course: 15:07 Patient arrived in ED. as 15:14 Georges Mendoza NP is PHCP. pm1 15:14 Michele Miller DO is Attending Physician. pm1 15:19 Arm band placed on. aa5 15:21 Triage completed. aa5 15:24 Beatris Martines, MARIA ALEJANDRA is Primary Nurse. ap3 16:05 Inserted saline lock: 22 gauge in right antecubital area, using aseptic technique. ap3 Blood collected. 16:06 Patient has correct armband on for positive identification. Bed in low position. Call ap3 light in reach. Side rails up X 1. Pulse ox on. NIBP on. Door closed. Noise minimized. 17:28 No provider procedures requiring assistance completed. IV discontinued, intact, ap3 bleeding controlled, No redness/swelling at site. Pressure dressing applied. Administered Medications: 16:07 Drug: NS 0.9% 1000 ml Route: IV; Rate: 1000 ml; Site: right antecubital; ap3 16:07 Drug: morphine 4 mg Route: IVP; Infused Over: 4 mins; Site: right antecubital; ap3 16:07 Drug: Zofran (Ondansetron) 4 mg Route: IVP; Site: right antecubital; ap3 Medication: 16:06 VIS not applicable for this client. ap3 Outcome: 17:02 Discharge ordered by . pm1 17:28 Discharged to home ambulatory. ap3 17:28 Condition: good 17:28 Discharge instructions given to patient, Instructed on discharge instructions, follow up and referral plans. Demonstrated understanding of instructions, follow-up care. 17:29 Patient left the ED. ap3 Signatures: Tuyet Osorio Audri, RN RN aa5 Georges Mendoza, ELDER STRATEGY EXECUTION CONSULTANT pm1 Beatris Martines RN RN ap3
--- NOTE | 2022-08-20 17:03 | EDPHYS ---
Physician Documentation [facility] Name: Barb Cortez Age: 46 yrs Sex: Female : 1975 Arrival Date: 08/20/2022 Time: 15:07 Bed 10 Private MD: ED Physician Michele Miller HPI: 08/20 15:25 This 46 yrs old Female presents to ER via Ambulatory with complaints of Headache. pm1 15:25 The patient complains of pain to the forehead to back of head . The patient describes pm1 the headache as aching, constant. Onset: The symptoms/episode began/occurred 4 day(s) ago. Associated signs and symptoms: The patient has no apparent associated signs or symptoms, Pertinent negatives: dizziness, fever, nausea, vomiting. Severity of symptoms: in the emergency department the pain is unchanged. Headache History: The patient has had previous headaches and this one is similar to previous episodes. The patient has been recently seen by a physician: the patient's primary care provider, with similar presenting complaints, and apparently given a diagnosis of Migraine headache, given pain medications that she reports are ineffective. 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 - Social history:: Smoking status: unknown. ROS: 15:25 Constitutional: Negative for fever, chills, and weight loss, Cardiovascular: Negative pm1 for chest pain, palpitations, and edema, Respiratory: Negative for shortness of breath, cough, wheezing, and pleuritic chest pain. 15:25 Abdomen/GI: Negative for abdominal pain, nausea, vomiting, diarrhea, and constipation. 15:25 Neuro: Positive for headache, Negative for dizziness, weakness. 15:25 All other systems are negative. Exam: 15:25 Constitutional: This is a well developed, well nourished patient who is awake, alert, pm1 and in no acute distress. Head/Face: Normocephalic, atraumatic. 15:25 Skin: Warm, dry with normal turgor. Normal color with no rashes, no lesions, and no evidence of cellulitis. 15:25 Eyes: Exam is negative for acute changes, Periorbital structures: no acute changes, Extraocular movements: intact throughout, Conjunctiva: no acute changes, no injection. 15:25 ENT: Exam is negative for acute changes, Mouth: Lips: normal, moist, Oral mucosa: normal, pink and intact, moist. 15:25 Neck: ROM/movement: no acute changes, Meningeal signs: are not present. 15:25 Cardiovascular: Exam negative for acute changes, Rate: normal, Rhythm: regular, Pulses: no pulse deficits are appreciated. 15:25 Respiratory: Exam negative for acute changes, respiratory distress, shortness of breath. 15:25 Neuro: Exam negative for acute changes, Orientation: is normal, Mentation: is normal, Motor: is normal, moves all fours. Vital Signs: 15:20 BP 142 / 66; Pulse 96; Resp 18 S; Temp 98.3(TE); Pulse Ox 100% on R/A; aa5 MDM: 15:14 Patient medically screened. pm1 15:25 I considered the following discharge prescriptions or medication management in the pm1 emergency department Patient with allergies to Benadryl and aspirin and Toradol. Was hoping to give the patient Toradol, Benadryl, Reglan for tension type headache. Patient reports medication she was given by PCP for the same headache has not helped and is requesting narcotic medications for relief. Given history of allergies will give patient narcotics for pain. 17:00 ED course: Patient sleeping and her headache is resolved. Patient reports she is ready pm1 to go home. 17:01 Data reviewed: vital signs. pm1 17:01 Counseling: I had a detailed discussion with the patient and/or guardian regarding: the pm1 historical points, exam findings, and any diagnostic results supporting the discharge/admit diagnosis, the need for outpatient follow up, to return to the emergency department if symptoms worsen or persist or if there are any questions or concerns that arise at home. 08/20 15:25 Order name: IV Saline Lock; Complete Time: 16:05 pm1 Administered Medications: 16:07 Drug: NS 0.9% 1000 ml Route: IV; Rate: 1000 ml; Site: right antecubital; ap3 16:07 Drug: morphine 4 mg Route: IVP; Infused Over: 4 mins; Site: right antecubital; ap3 16:07 Drug: Zofran (Ondansetron) 4 mg Route: IVP; Site: right antecubital; ap3 Disposition: 18:53 Co-signature as Attending Physician, Michele Miller DO I was immediately available on-site ms3 in the Emergency Department for consultation in the care of the patient. Disposition Summary: 08/20/22 17:02 Discharge Ordered Location: Home pm1 Problem: new pm1 Symptoms: are resolved pm1 Condition: Stable pm1 Diagnosis - Headache pm1 Followup: pm1 - With: Emergency Department - When: As needed - Reason: Worsening of condition Followup: pm1 - With: Private Physician - When: 2 - 3 days - Reason: Recheck today's complaints, Continuance of care, Re-evaluation by your physician Discharge Instructions: - Discharge Summary Sheet pm1 - General Headache Without Cause pm1 - Tension Headache, Adult pm1 Forms: - Medication Reconciliation Form pm1 - Thank You Letter pm1 - Antibiotic Education pm1 - Prescription Opioid Use pm1 Signatures: Eliana Atkins, RN RN aa5 Georges Mendoza NP POWER TOOL REPAIR TECHNICIAN pm1 Beatris Martines RN RN ap3 Michele Miller DO DO ms3
[2022-08-20 17:33] VITALS: BP 142/66; TEMP 98.3; O2SAT 100
== END 2022-08-20 17:29 | disposition home or self-care (01) ==
LOC: ER 15:04
DX: R51.9 Headache, unspecified (principal); E11.22 Type 2 diabetes mellitus with diabetic chronic kidney disease; I12.9 Hypertensive chronic kidney disease with stage 1 through stage 4 chronic kidney disease, or unspecified chronic kidney disease; N18.9 Chronic kidney disease, unspecified; Z88.0 Allergy status to penicillin; Z88.1 Allergy status to other antibiotic agents; Z88.5 Allergy status to narcotic agent; Z88.6 Allergy status to analgesic agent
CPT/HCPCS: J7030; J2405

== ENCOUNTER 2024-03-03 20:07 | Emergency (ER) | payer OTHER ==
--- OUTSIDE RECORDS SUMMARY | 2024-03-03 20:18 | XMS REPORT | Continuity of Care Document ---
Author Name Unknown Address [address] [facility] [address] [place] [address] [facility] thconnect Address [address] [facility] [address] [place] [address] Care Team Providers Care Oenologist Name Role Phone Kwadwo Patel MD Primary Care Physician + [phone] Kwadwo Patel MD Attending Clinician + Kwadwo Patel MD Attending Clinician + Corin Alfaro Attending Clinician + JANEE SOTELO Attending Clinician Unavail able KWADWO PATEL Attending Clinician Unavailable CORIN CHAN Attending Clinician Unavailable 2, [facility] Attending Clinician Unavailable Skinny Lind NP Attending Clinician [phone] SKINNY LIND Attending Clinician Unavailab le Doctor Unassigned, [place] Attending Clinician U navailable OBI-HARDIK, ALICE Attending Clinician Unavailab le OBI-HARDIK, ALICE Attending Clinician Unavailab karen Biggs RN, Ema Attending Clinician Unavailab karen Smith RN, Marely Attending Clinician Unavailable Dina Medley RN Attending Clinician [phone] ROSI JONES Attending Clinician Unavailable Maxine SANDRA, Sarah Mccray Attending Clinician +[phone] Rosi Jones DO Attending Clinician +[phone] Foreign Wilkinson DPM Attending Clinician +[phone] GERI DARDEN Attending Clinician Unavail able Katalina MON, Geri Huerta Attending Clinician +[phone] Raya Marina RN Attending Clinician Unavaila grazyna Duenas MD, Valerio Attending Clinician [phone] Nurse, Clc Echo Attending Clinician Unavailable Call, Clc Apa Phone Attending Clinician Unavail able EDY COWAN Attending Clinician Unavail able EDY COWAN Attending Clinician Unavail able PRIMITIVO REYNOLDS Attending Clinician Unavailable PRIMITIVO REYNOLDS Attending Clinician Unavailable Jose Luque MD Attending Clinician [phone] Adolfo Cedeño MD Attending Clinician +[phone] Ni [facility] an AYO JOYNER Attending Clinician Unavailable Ayo Joyner MD Attending Clinician +[phone] MASHA AVILA Attending Clinician Unavailab Masha Chatman DO Attending Clinician + [phone] Alize León RN Attending Clinician Unavailable Pob, [facility] Main Attending Clinician UnavailTALA Hughes Attending Clinician Unavailable Tala Aquino MD Attending Clinician [phone] King SERGIO MD, James C Attending Clinician [phone] Unknown, Attending Attending Clinician Unavailab LEX Chase III Attending Clinician UnavailCindy Saha MD Attending Clinician +[phone] DRISS CROW Attending Clinician Unavailable DRISS CROW Attending Clinician Unavailable SUNSHINE ZHU Attending Clinician UnavailCINDY Saha Attending Clinician Unavailable CHEVY RODRÍGUEZ Attending Clinician Unavailable Chevy Rodríguez MD Attending Clinician +[phone] JUAN RAMON VELA Attending Clinician Unavailable DAYTON HAYES Attending Clinician Unavailab Sunshine Phipps MD Attending Clinician [phone] ERMA RAE Attending Clinician Unavailable Erma Swanson S Attending Clinician +[phone] Verónica Garcia MD Attending Clinician +[phone] JESSICA BRITT Attending Clinician Unavailable SHALONDA BURGESS Attending Clinician Unavailable KARINA TEJEDA Attending Clinician UnavailYVES Mayberry Attending Clinician Unavailable JESSICA BRANTLEY Attending Clinician Unavailable MARIYA PEREZ Attending Clinician Unavaila Burak Daily MD Attending Clinician [phone] Mariya Perez MD Attending Clinician +[phone] JAY WRIGHT Attending Clinician Unavailab ANALIA Luna Attending Clinician UnavailROSI Lujan Admitting Clinician Unavailable Rosi Jones DO Admitting Clinician [phone] PRIMITIVO REYNOLDS Admitting Clinician Unavailable AYO JOYNER Admitting Clinician Unavailable CHEVY RODRÍGUEZ Admitting Clinician Unavailable BLAZE ABRAMS Admitting Clinician Unavailable Payers Payer Name Policy Type Policy Number Effective Date Expirati on Date Source [facility] [id number] 2018 00:00:00 Problems Condition Name Condition Details Condition Category Status Onset Date Resolution Date Last Treatment Date Treating Clinician Comments Source Cellulitis of left foot Cellulitis of left foot Disease Active 03-27 00:00: 00 [facility] 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 Disease Active 03-27 00:00: 00 [facility] Sepsis Sepsis Disease Active 03-18 00:00: 00 [facility] Obesity (BMI 30-39.9) Obesity (BMI 30-39.9) Disease Active - 00:00: 00 [facility] Slurred speech Slurred speech Disease Active 6-13 00:00: 00 [facility] Recurrent UTI Recurrent UTI Disease Active 6-09 00:00: 00 [facility] Knee buckling, left Knee buckling, left Disease Active 6-09 00:00: 00 [facility] Non-compli ance with treatment Non-compli ance with treatment Disease Active 6- 00:00: 00 [facility] Asthma Asthma Disease Active 3- 00:00: 00 [facility] Gastroesop hageal reflux disease Gastroesop hageal reflux disease Disease Active 3- 00:00: 00 [facility] Major depressive disorder, single episode, unspecifie d Major depressive disorder, single episode, unspecifie d Disease Active 3-07 00:00: 00 [facility] Pure hyperchole sterolemia Pure hyperchole sterolemia Disease Active 3-07 00:00: 00 [facility] GERD without esophagiti s GERD without esophagiti s Disease Active 3-07 00:00: 00 [facility] Sepsis secondary to UTI Sepsis secondary to UTI Disease Active 2021-07 0-21 00:00: 00 [facility] Recurrent falls while walking Recurrent falls while walking Disease Active 2021-07 0-21 00:00: 00 [facility] Influenza vaccine needed Influenza vaccine needed Disease Active 2021-07 0-21 00:00: 00 [facility] Hydronephr osis of left kidney Hydronephr osis of left kidney Disease Active 2021-07 0-21 00:00: 00 [facility] Hyperkalem ia Hyperkalem ia Disease Active 2021-07 0-06 00:00: 00 [facility] ERICKA (acute kidney injury) ERICKA (acute kidney injury) Disease Active 2021-07 0-06 00:00: 00 [facility] ERICKA (acute kidney injury) ERICKA (acute kidney injury) Disease Active 2021-07 0-06 00:00: 00 [facility] Pyelonephr itis of left kidney Pyelonephr itis of left kidney Disease Active 11-08 00:00: 00 [facility] Hospital discharge follow-up Hospital discharge follow-up Disease Active 11-08 00:00: 00 [facility] Elevated serum creatinine Elevated serum creatinine Disease Active 4 00:00: 00 [facility] Dehydratio n Dehydratio n Disease Active 08-08 00:00: 00 [facility] Nicotine dependence with current use Nicotine dependence with current use Disease Active 08-08 00:00: 00 [facility] Nicotine dependence with current use Nicotine dependence with current use Disease Active 08-08 00:00: 00 [facility] Contusion of left lower extremity, sequela Contusion of left lower extremity, sequela Disease Active 2020-07 0- 00:00: 00 [facility] Pre-operat yari clearance Pre-operat yari clearance Disease Active 2020-07 0-20 00:00: 00 [facility] 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 Disease Active 2020-07 020 00:00: 00 [facility] Need for hepatitis C screening test Need for hepatitis C screening test Disease Active 2020-07 0-20 00:00: 00 [facility] Dyslipidem ia Dyslipidem ia Disease Active 2020-07 0-20 00:00: 00 [facility] Essential hypertensi on Essential hypertensi on Disease Active 2020-07 0-20 00:00: 00 [facility] Fall, sequela Fall, sequela Disease Active 2020-07 0-20 00:00: 00 [facility] Decay, teeth Decay, teeth Disease Active 2020-07 0-20 00:00: 00 [facility] Bipolar disorder with severe bahman Bipolar disorder with severe bahman Disease Active 6-04 00:00: 00 [facility] Wheelchair dependence Wheelchair dependence Disease Active 3-02 00:00: 00 [facility] Phantom limb pain Phantom limb pain Disease Active 3-02 00:00: 00 [facility] Diabetic polyneurop athy associated with type 2 diabetes mellitus Diabetic polyneurop athy associated with type 2 diabetes mellitus Disease Active 3-02 00:00: 00 [facility] Wheelchair dependence Wheelchair dependence Disease Active 3-02 00:00: 00 [facility] Anxiety and depression Anxiety and depression Disease Active 3-02 00:00: 00 [facility] Presence of intrauteri ne contracept yari device Presence of intrauteri ne contracept yari device Disease Active - 00:00: 00 [facility] Encounter for surveillan ce of contracept angel, unspecifie d contracept yari Encounter for surveillan ce of contracept angel, unspecifie d contracept yari Disease Active - 00:00: 00 [facility] Diabetic eye exam Diabetic eye exam Disease Active 1- 00:00: 00 [facility] Morbid obesity Morbid obesity Disease Active 08-02 00:00: 00 [facility] Morbid obesity with body mass index (BMI) of 40.0 or higher Morbid obesity with body mass index (BMI) of 40.0 or higher Disease Active 1 00:00: 00 [facility] Below-knee amputation of right lower extremity Below-knee amputation of right lower extremity Disease Active 9-15 00:00: 00 [facility] Hypotensio n, unspecifie d hypotensio n type Hypotensio n, unspecifie d hypotensio n type Disease Active 8-18 00:00: 00 [facility] Restless leg Restless leg Disease Active 8-14 00:00: 00 [facility] Suspected COVID-19 virus infection Suspected COVID-19 virus infection Disease Active 4-23 00:00: 00 [facility] S/P BKA (below knee amputation ), right S/P BKA (below knee amputation ), right Disease Active 4-06 00:00: 00 [facility] Migraine without status migrainosu s, not intractabl e, unspecifie d migraine type Migraine without status migrainosu s, not intractabl e, unspecifie d migraine type Disease Active 2 00:00: 00 [facility] 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 Disease Active 08-25 00:00: 00 [facility] Hx of bipolar disorder Hx of bipolar disorder Disease Active 08-25 00:00: 00 [facility] Lumbar herniated disc Lumbar herniated disc Disease Active 08-25 00:00: 00 [facility] Type 2 diabetes mellitus with hyperglyce thanh, with long-term current use of insulin Type 2 diabetes mellitus with hyperglyce thanh, with long-term current use of insulin Disease Active 08-25 00:00: 00 [facility] Type 2 diabetes mellitus with hyperglyce thanh, with long-term current use of insulin Type 2 diabetes mellitus with hyperglyce thanh, with long-term current use of insulin Disease Active 08-25 00:00: 00 [facility] Left flank pain Left flank pain Disease Active 1- 00:00: 00 Overview: Formattin g of this note might be different from the original. ICD10 Diagnosis Term Cigar Packer Utility [facility] Sore throat Sore throat Disease Resolve d 11-02 00:00: 00 2020-02-24 00:00:00 2020-02-24 15:45:16 [facility] Nasal congestion Nasal congestion Disease Resolve d 11-02 00:00: 00 2020-02-24 00:00:00 2020-02-24 15:45:20 [facility] Diarrhea, unspecifie d type Diarrhea, unspecifie d type Disease Resolve d 423 00:00: 00 2020-02-24 00:00:00 2020-02-24 15:45:25 [facility] Allergies, Adverse Reactions, Alerts Allergy Name Allergy Type Status Severity Reaction(s) Onset Date Inactive Date Treating Clinician Comments Source BISMUTH TRIBROM- PETROLAT UM,WH DRUG Active Other-Cmnt 03-25 00:00: 00 [facility] Bismuth Tribrom- Petrolat um,Wh Propensi ty to adverse reaction s Active Other - See comments 03-25 00:00: 00 Redness. [facility] AMOXICIL NITESH DRUG INGREDI Active Unknown-Cmnt 12-19 00:00: 00 [facility] Amoxicil nitesh Drug Allergy Active Unknown - See comments 12-19 00:00: 00 [facility] DIPHENHY DRAMINE HCL DRUG INGREDI Active Hives 01-25 00:00: 00 [facility] Diphenhy dramine Hcl Propensi ty to adverse reaction s Active Hives 01-25 00:00: 00 [facility] MUSHROOM DRUG INGREDI Active Low Other-Cmnt 2018-07 00:00: 00 [facility] Mushroom Propensi ty to adverse reaction s Active Other - See comments 2018-07 00:00: 00 "pass out" [facility] TRAMADOL DRUG INGREDI Active N/V 03-08 00:00: 00 [facility] Tramadol Propensi ty to adverse reaction s Active Nausea and/or Vomiting 03-08 00:00: 00 drowsines s [facility] CIPROFLO XACIN DRUG INGREDI Active Hives 04-11 00:00: 00 [facility] PENICILL IN DRUG INGREDI Active Anaphylaxis 04-11 00:00: 00 [facility] Ciproflo xacin Propensi ty to adverse reaction s Active Hives 04-11 00:00: 00 [facility] Penicill in Propensi ty to adverse reaction s Active Anaphylaxis 04-11 00:00: 00 Pt states, "I'll flatline" ; tolerated cefazolin and ceftriaxo ne 03/2023 admission [facility] Iodine And Iodide Containi ng Products Propensi ty to adverse reaction s Active Anaphylaxis 07-14 00:00: 00 [facility] ASPIRIN DRUG INGREDI Active Hives 07-14 00:00: 00 [facility] IODINE AND IODIDE CONTAINI NG PRODUCTS Drug Class Active Anaphylaxis 07-14 00:00: 00 [facility] Aspirin Propensi ty to adverse reaction s Active Hives 07-14 00:00: 00 [facility] Social History Social Habit Start Date Stop Date Quantity Comments Source History of tobacco use Cigarette Smoker [facility] History SDOH Social Connections Get Together [facility] History SDOH Social Connections [facility] History SDOH Social Connections Membership [facility] History SDOH Social Connections Meetings [facility] History SDOH Housing Places Lived [facility] Alcohol intake 2023-10-23 00:00:00 2023-10-23 00:00:00 Ex-drinker (finding) [facility] Alcoholic beverage intake 2023-10-23 00:00:00 2023-10-23 00:00:00 Ex-drinker (finding) [facility] History SDOH Alcohol Frequency 2022-12-24 00:00:00 2022-12-24 00:00:00 1 [facility] History SDOH Alcohol Std Drinks 2022-12-24 00:00:00 2022-12-24 00:00:00 0 [facility] History SDOH Alcohol Binge 2022-12-24 00:00:00 2022-12-24 00:00:00 1 [facility] History SDOH Social Connections Phone 2022-12-24 00:00:00 2022-12-24 00:00:00 5 [facility] History SDOH Social Connections Living 2022-12-24 00:00:00 2022-12-24 00:00:00 3 [facility] History SDOH Physical Activity DPW 2022-12-24 00:00:00 2022-12-24 00:00:00 0 [facility] History SDOH Physical Activity MPS 2022-12-24 00:00:00 2022-12-24 00:00:00 0 [facility] History SDOH Financial 2022-12-24 00:00:00 2022-12-24 00:00:00 5 [facility] History SDOH Food Worry 2022-12-24 00:00:00 2022-12-24 00:00:00 1 [facility] History SDOH Food Scarcity 2022-12-24 00:00:00 2022-12-24 00:00:00 1 [facility] History SDOH Transport Med 2022-12-24 00:00:00 2022-12-24 00:00:00 2 [facility] History SDOH Transport Non-Med 2022-12-24 00:00:00 2022-12-24 00:00:00 2 [facility] History SDOH Housing Unable to Pay 2022-12-24 00:00:00 2022-12-24 00:00:00 2 [facility] History SDOH Housing Homeless Last Year 2022-12-24 00:00:00 2022-12-24 00:00:00 2 [facility] Exposure to SARS-CoV-2 (event) 2022-11-30 00:00:00 2022-12-10 14:23:00 Not sure [facility] Cigarettes smoked current (pack per day) - Reported 2022-09-18 00:00:00 2022-09-18 00:00:00 [facility] Cigarette pack-years 2022-09-18 00:00:00 2022-09-18 00:00:00 [facility] Tobacco use and exposure 2022-09-18 00:00:00 2022-09-18 00:00:00 Smokeless tobacco non-user [facility] History of Social function 2022-09-18 00:00:00 2022-09-18 00:00:00 [facility] Sex assigned at 1975 00:00:00 1975 00:00:00 [facility] Smoking Status Start Date Stop Date Source Smokes tobacco daily 2022-09-18 00:00:00 [facility] Medications Ordered Medication Name Filled Medication Name Start Date Stop Date Current Medication? Ordering Clinician Indication Dosage Frequency Signature (SIG) Comments Components Source SERTRALINE 50 mg tablet 7-19 00:00: 00 Yes [id number] 50mg TAKE 1 TABLET BY MOUTH EVERY DAY IN THE MORNING [facility] blood sugar diagnostic (ONETOUCH ULTRA TEST) strip 01-07 00:00: 00 Yes [id number] USE TO TEST BLOOD GLUCOSE ONCE A DAY [facility] BD GLADIS 2ND GEN PEN NEEDLE 32 gauge x 5/32" Ndle 12-23 00:00: 00 Yes USE DIRECTED TWO TIMES DAILY WITH MEALS. [facility] Insulin Asp Prt-Insulin Aspart 100 unit/mL (70-30) injection 12-22 00:00: 00 Yes [id number] 20U inject 20 Units under the skin in the morning and 20 Units in the evening. inject with meals. [facility] atorvastati n 80 mg tablet 10-22 00:00: 00 Yes [id number] 80mg Take 1 tablet by mouth at bedtime. [facility] amitriptyli ne 100 mg tablet 10-22 00:00: 00 Yes [id number] 100mg Take 1 tablet by mouth at bedtime. [facility] butalbital- acetaminoph en-caff 50-325-40 mg tablet 10-22 00:00: 00 Yes [id number] TAKE 1 CAPSULE BY MOUTH EVERY 8 HOURS NEEDED FOR MIGRAINE [facility] metFORMIN 1,000 mg tablet 10-22 00:00: 00 Yes [id number] TAKE 1 TABLET BY MOUTH IN THE MORNING AND 1 TABLET IN THE EVENING. TAKE WITH MEALS. [facility] SITagliptin phosphate (JANUVIA) 100 mg tablet 10-22 00:00: 00 Yes [id number] 100mg Take 1 tablet by mouth in the morning. [facility] LISINOPRIL 10 mg tablet 10-22 00:00: 00 Yes [id number] TAKE 1 AND 1/2 TABLET BY MOUTH IN THE MORNING. HOLD IF BP < 110/60 [facility] SERTraline (ZOLOFT) 50 mg tablet -12 00:00: 00 01-28 00:00 :00 No [id number] 50mg Take 1 tablet by mouth in the morning. [facility] omeprazole 40 mg capsule 2- 00:00: 00 Yes [id number] 40mg TAKE 1 CAPSULE BY MOUTH IN THE MORNING. [facility] metFORMIN 1,000 mg tablet - 00:00: 00 10-22 00:00 :00 No [id number] TAKE 1 TABLET BY MOUTH IN THE MORNING AND 1 TABLET IN THE EVENING. TAKE WITH MEALS. [facility] Leg Brace Misc 2- 00:00: 00 Yes [id number] 9101 Use as directed [facility] lisinopriL 10 mg tablet - 00:00: 00 10-22 00:00 :00 No [id number] 15mg Take 1.5 tablets by mouth in the morning. Hold if BP < 110/60 [facility] Insulin Lesage, Disposable, (BD GLADIS 2ND GEN PEN NEEDLE) 32 gauge x 5/32" Ndle 2022-07 2- 00:00: 00 12-23 00:00 :00 No Use as directed two times daily with meals. [facility] atorvastati n 80 mg tablet 2022-07 00:00: 00 10-22 00:00 :00 No [id number] 80mg TAKE 1 TABLET BY MOUTH AT BEDTIME [facility] BUPROPION SR 150 mg SR tablet 2022-07 0-11 00:00: 00 10-22 00:00 :00 No [id number] 150mg TAKE 1 TABLET BY MOUTH IN THE MORNING AND 1 TABLET IN THE EVENING [facility] insulin glargine (LANTUS U-100) injection 30 Units 03-27 02:00: 00 Yes 30U 30 Units, Subcutaneo us, QHS, First dose on Brynn 03/26/23 at 2100, Until Discontinu ed, Routine [facility] buPROPion SR 150 mg SR tablet 03-27 00:00: 00 04-22 00:00 :00 No [id number] 150mg Take 1 tablet by mouth in the morning and 1 tablet in the evening. [facility] predniSONE (DELTASONE) tablet 10 mg 03-26 17:15: 00 03-26 17:06 :00 No 10mg 10 mg, Oral, ONCE, 1 dose, On Thu03/26/23 at 1215, Routine [facility] amLODIPine (NORVASC) tablet 5 mg 03-26 14:30: 00 03-26 15:12 :00 No 5mg 5 mg, Oral, ONCE, 1 dose, On Thu03/26/23 at 0930, Routine [facility] lisinopriL (PRINIVIL,Z ESTRIL) tablet 40 mg 03-26 14:00: 00 Yes 40mg 40 mg, Oral, DAILY, First dose (after last modificati on) on Thu03/26/23 at 0900, Until Discontinu ed, Routine [facility] insulin NPH and regular human 70-30 (70-30 U-100 INSULIN) 100 unit/mL (70-30) injection 30 Units 03-26 13:45: 00 03-26 13:08 :00 No 30U 30 Units, Subcutaneo us, ONCE, 1 dose, On Thu03/26/23 at 0845, Routine [facility] famotidine (PEPCID AC) tablet 20 mg 03-26 01:00: 00 Yes 20mg 20 mg, Oral, BID, First dose on Thu03/25/23 at 2000, Until Discontinu ed, Routine [facility] Insulin Asp Prt-Insulin Aspart 100 unit/mL (70-30) injection 03-26 00:00: 00 12-20 00:00 :00 No [id number] 20U inject 20 Units under the skin in the morning and 20 Units in the evening. inject with meals. [facility] metFORMIN 1,000 mg tablet 03-26 00:00: 00 08-21 00:00 :00 No [id number] 500mg Take 0.5 tablets by mouth in the morning and 0.5 tablets in the evening. Take with meals. [facility] cephALEXin (KEFLEX) 500 mg capsule 03-26 00:00: 00 04-01 04:59 :00 No [id number] 500mg Take 1 capsule by mouth 4 (four) times daily for 5 days. [facility] HYDROcodone -acetaminop hen 10-325 mg tablet 03-26 00:00: 00 03-30 04:59 :00 No [id number] 1{tbl} Take 1 tablet by mouth every 6 (six) hours as needed for Pain (scale 7-10) for up to 3 days. Indication s: acute pain [facility] insulin glargine 100 unit/mL injection 03-26 00:00: 00 03-26 00:00 :00 No [id number] 20U inject 20 Units under the skin at bedtime. [facility] methylPREDN ISolone sod succ (SOLU-MEDRO L (PF)) injection 40 mg 03-25 20:30: 00 03-25 20:21 :00 No 40mg 40 mg, Intravenou s, ONCE, 1 dose, On Thu03/25/23 at 1530, Routine [facility] simethicone (GAS RELIEF (SIMETHICON E)) chewable tablet 80 mg 03-25 02:00: 00 Yes 80mg 80 mg, Oral, PC+HS, First dose on Thu03/24/23 at 2100, Until Discontinu ed, Routine [facility] glycerin/mi neral oil (AGLO ENEMA) (COMPOUNDED ) Enem 225 mL 03-24 23:45: 00 03-25 01:14 :00 No 225mL 225 mL, Rectal, ONCE, 1 dose, On Thu03/24/23 at 1845, TRISTAN [facility] ceFAZolin (ANCEF) 1,000 mg in NaCl 0.9% (NS) 100 mL MINI-BAG 03-24 16:15: 00 03-29 16:14 :00 No 1000mg 1,000 mg, Intravenou s, Q8H ABX, 15 doses, First dose on Thu03/24/23 at 1115, Last dose on Thu03/29/23 at 0315, Administer over 30 Minutes, 100 mL
Reas on for Anti-Infec tive: Documented Infection< br>Documen perla Infection Site: Skin / Soft Tissue
Duration of Therapy: 10 days [facility]y [facility] lisinopriL (PRINIVIL,Z ESTRIL) tablet 20 mg 03-24 14:00: 00 03-25 19:34 :10 No 20mg 20 mg, Oral, DAILY, First dose (after last modificati on) on Thu03/24/23 at 0900, Until Discontinu ed, Routine [facility] lisinopriL (PRINIVIL,Z ESTRIL) tablet 10 mg 03-23 19:15: 00 03-23 19:22 :00 No 10mg 10 mg, Oral, ONCE, 1 dose, On Thu03/23/23 at 1415, Routine [facility] lactulose (CEPHULAC) solution 30 mL 03-23 00:15: 00 Yes 30mL 30 mL, Oral, DAILY, First dose on Thu03/22/23 at 1915, Until Discontinu ed, Routine [facility] lisinopriL (PRINIVIL,Z ESTRIL) tablet 10 mg 03-22 14:00: 00 Yes 10mg 10 mg, Oral, DAILY, First dose on Thu03/22/23 at 0900, Until Discontinu ed, Routine [facility] ondansetron (ZOFRAN-ODT ) disintegrat ing tablet 4 mg 03-22 02:05: 09 Yes 4mg 4 mg, Oral, Q8HPRN, Starting on 03/21/23 at 2105, Until Discontinu ed, Routine, Nausea and Vomiting (N/V), N/V alternatin g with Promethazi ne [facility] ity [facility] proMETHazin e (PHENERGAN) injection 25 mg 03-22 02:04: 56 Yes 25mg 25 mg, Intramuscu lar, Q4HPRN, Starting on Thu03/21/23 at 2104, Until Discontinu ed, Routine, Nausea and Vomiting (N/V), 2nd line [facility] sennosides- docusate sodium (SENOKOT-S) 8.6-50 mg per tablet 1 tablet 03-21 21:00: 00 Yes 1{tbl} 1 tablet, Oral, DAILY, First dose on Thu03/21/23 at 1600, Until Discontinu ed, Routine [facility] morpHINE (4 mg/mL) injection 4 mg 03-21 04:04: 33 Yes 4mg 4 mg, Slow IV Push, Q4HPRN, Starting on Thu03/20/23 at 2304, Until Discontinu ed, Routine, Pain (scale 7-10) [facility] cefTRIAXone (ROCEPHIN) 2,000 mg in NaCl 0.9% (NS) 100 mL MINI-BAG 03-20 20:00: 00 03-25 19:59 :00 No 2000mg 2,000 mg, IV Piggyback, Q24H ABX, 5 doses, First dose on Thu03/20/23 at 1500, Last dose on Thu03/24/23 at 1500, Administer over 30 Minutes, 100 mL
Reas on for Anti-Infec tive: Empiric Therapy for Suspected Infection< br>Empiric Therapy Site: Skin / Soft tissue
Duration of therapy: 5 days [facility] hydralAZINE (APRESOLINE ) injection 10 mg 03-20 19:28: 12 Yes 10mg 10 mg, Slow IV Push, Q6HPRN, Starting on Thu03/20/23 at 1428, Until Discontinu ed, Routine, DBP=>100; SBP=>180 [facility] lactated ringers IV infusion 1,000 mL 03-20 17:45: 00 Yes 1000mL at 100 mL/hr, 1,000 mL, IV Infusion, CONTINUOUS , Starting on Thu03/20/23 at 1245, Until Discontinu ed, Routine, PACU [facility] lidocaine 1% (PF) (XYLOCAINE) injection 03-20 17:17: 00 03-20 17:42 :18 No PRN, Starting on Thu03/20/23 at 1217, Until Thu03/20/23 at 1242, Routine, Intra-op [facility] bupivacaine (preserv free) 0.5% (SENSORCAIN E MPF) injection 03-20 17:00: 00 03-20 17:42 :18 No PRN, Starting on Thu03/20/23 at 1200, Until Thu03/20/23 at 1242, Routine, Intra-op [facility] sodium chloride 0.9 % irrigation solution 03-20 16:30: 00 03-20 17:42 :18 No PRN, Starting on Thu03/20/23 at 1130, Until Thu03/20/23 at 1242, Intra-op [facility] atorvastati n (LIPITOR) tablet 80 mg 03-20 02:00: 00 Yes 80mg 80 mg, Oral, QHS, First dose on Thu03/19/23 at 2100, Until Discontinu ed, Routine [facility] amitriptyli ne (ELAVIL) tablet 100 mg 03-20 02:00: 00 Yes 100mg 100 mg, Oral, QHS, First dose on Thu03/19/23 at 2100, Until Discontinu ed, Routine [facility] vancomycin 1,250 mg in NaCl 0.9% (NS) 250 mL VIAL-MATE IV piggyback 03-20 01:00: 00 03-27 00:59 :00 No 15mg/kg 1,250 mg (rounded from 1,333.5 mg = 15 mg/kg ?88.9 kg), IV Piggyback, Q24H ABX, 7 doses, First dose on Thu03/19/23 at 2000, Last dose on Thu03/25/23 at 2000, Administer over 90 Minutes, 250 mL
R denise for Anti-Infec tive: Empiric Therapy for Suspected Infection< br>Empiric Therapy Site: Skin / Soft tissue
Duration of therapy: 5 days [facility] omeprazole (PRILOSEC) capsule 40 mg 03-19 14:00: 00 Yes 40mg 40 mg, Oral, DAILY, First dose on Thu03/19/23 at 0900, Until Discontinu ed [facility] enoxaparin (LOVENOX) injection 40 mg 03-19 14:00: 00 Yes 40mg 40 mg, Subcutaneo us, DAILY, First dose on Thu03/19/23 at 0900, Until Discontinu ed, Routine [facility] NaCl 0.9% (NS) IV infusion 1,000 mL 03-19 13:45: 00 03-19 15:18 :52 No 1000mL at 75 mL/hr, IV Infusion, ONCE, 1 dose, On Thu03/19/23 at 0845, Routine [facility] butalbital- acetaminoph en-caff (ESGIC) 50-325-40 mg tablet 1 tablet 03-19 12:29: 37 Yes 1{tbl} 1 tablet, Oral, Q4HPRN, Starting on Thu03/19/23 at 0729, Until Discontinu ed, Routine, Headache [facility] ipratropium -albuteroL (DUONEB) 0.5 mg-3 mg(2.5 mg base)/3 mL nebulizer solution 3 mL 03-19 12:28: 33 Yes 3mL 3 mL, Inhalation , QIDPRN, Starting on Thu03/19/23 at 0728, Until Discontinu ed, Routine, Wheezing, Shortness of Breath, Chest tightness, Bronchospa sm [facility] Sliding Scale Insulin - Lispro (HumaLOG) 03-19 02:00: 00 Yes Subcutaneo us, TID MEALS+HS, First dose on Thu03/18/23 at 2100, Until Discontinu ed, Routine [facility] ondansetron (ZOFRAN-ODT ) disintegrat ing tablet 4 mg 03-19 01:15: 00 03-19 00:18 :00 No 4mg 4 mg, Oral, ONCE, 1 dose, On Thu03/18/23 at 2015, Routine [facility] HYDROcodone -acetaminop hen (NORCO) 10-325 mg tablet 1 tablet 03-19 01:15: 00 03-19 00:19 :00 No 1{tbl} 1 tablet, Oral, ONCE, 1 dose, On Thu03/18/23 at 2015, Routine [facility] HYDROcodone -acetaminop hen (NORCO) 10-325 mg tablet 1 tablet 03-19 00:39: 34 03-21 04:05 :44 No 1{tbl} 1 tablet, Oral, Q6HPRN, Starting on Thu03/18/23 at 1939, Until Thu03/20/23 at 2305, Routine, Pain (scale 7-10) [facility] ondansetron (ZOFRAN (PF)) injection 4 mg 03-19 00:38: 48 Yes 4mg 4 mg, Slow IV Push, Q6HPRN, Starting on Thu03/18/23 at 1938, Until Discontinu ed, Routine, Nausea and Vomiting (N/V) [facility] glucagon (GLUCAGEN DIAGNOSTIC KIT) injection 1 mg 03-19 00:38: 42 Yes 1mg 1 mg, Intramuscu lar, PRN, Starting on Thu03/18/23 at 1938, Until Discontinu ed, TRISTAN, Blood Glucose < or = 70 mg/dL and patient is NPO, unable to swallow or has mental changes. [facility] dextrose 50 % in water (D50W) injection 25 mL 03-19 00:38: 42 Yes 25mL 25 mL, Slow IV Push, PRN, Starting on Thu03/18/23 at 1938, Until Discontinu ed, TRISTAN, Blood Glucose < or = 70 mg/dL and patient is NPO, unable to swallow or has mental status changes. [facility] acetaminoph en (TYLENOL) tablet 650 mg 03-19 00:38: 14 Yes 650mg 650 mg, Oral, Q6HPRN, Starting on Thu03/18/23 at 1938, Until Discontinu ed, Routine, Pain (scale 1-3) [facility] acetaminoph en (TYLENOL) tablet 500 mg 03-19 00:15: 00 03-19 00:19 :00 No 500mg 500 mg, Oral, ONCE, 1 dose, On Thu03/18/23 at 1915, TRISTAN [facility] NaCl 0.9% (NS) bolus infusion 1,000 mL 03-18 23:45: 00 03-19 01:00 :00 No 1000mL at 999 mL/hr, 1,000 mL, IV Infusion, ONCE, 1 dose, On Thu03/18/23 at 1845, STAT [facility] vancomycin 1,250 mg in NaCl 0.9% (NS) 250 mL VIAL-MATE IV piggyback 03-18 23:30: 00 03-19 01:34 :00 No 15mg/kg 1,250 mg (rounded from 1,333.5 mg = 15 mg/kg ?88.9 kg), IV Piggyback, ONCE, 1 dose, On Thu03/18/23 at 1830, Administer over 90 Minutes, 250 mL
Reas on for Anti-Infec tive: Documented Infection& lt;br>Docu mented Infection Site: Skin / Soft Tissue
Duration of Therapy: Other (see Comments) [facility] INSULIN ASP PRT-INSULIN ASPART 100 unit/mL (70-30) injection 8-11 00:00: 00 03-26 00:00 :00 No [id number] INJECT 30 UNITS SUBCUTANEO USLY TWICE DAILY WITH MEALS [facility] insulin glargine (LANTUS U-100) injection 15 Units 12-25 14:00: 00 Yes 15U 15 Units, Subcutaneo us, DAILY, First dose on Thu12/25/22 at 0900, Until Discontinu ed, Routine [facility] insulin glargine 100 unit/mL injection 12-25 00:00: 00 03-26 00:00 :00 No [id number] 30U inject 30 Units under the skin at bedtime. [facility] insulin lispro, human, 100 unit/mL injection 12-25 00:00: 00 01-25 04:59 :00 No [id number] 5U inject 5 Units under the skin in the morning and 5 Units at noon and 5 Units in the evening. inject with meals. Do all this for 30 days. [facility] clopidogreL 75 mg tablet 12-25 00:00: 00 01-25 04:59 :00 No [id number] 75mg Take 1 tablet by mouth in the morning for 30 days. [facility] insulin lispro (human) (HumaLOG U-100) injection 10 Units 12-24 17:00: 00 12-24 22:24 :18 No 10U 10 Units, Subcutaneo us, TID MEALS, First dose on Thu12/24/22 at 1200, Until Discontinu ed, Routine [facility] sulfur hexafluorid e microsphr (LUMASON) injection 5 mL 12-24 15:45: 00 12-24 13:55 :00 No [id number] 5mL 5 mL, Intravenou s, ONCE, 1 dose, On Thu12/24/22 at 1045, Routine
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 : GERI DARDEN [facility] Saline Bubble Study 12-24 15:32: 41 Yes [id number] 6mL 6 mL, Injection, SEE-INSTRU CTIONS, Starting on Thu12/24/22 at 1032, Until Discontinu ed, Routine [facility] Saline Bubble Study 12-24 15:32: 39 Yes [id number] 6mL 6 mL, Injection, SEE-INSTRU CTIONS, Starting on Thu12/24/22 at 1032, Until Discontinu ed, Routine [facility] omeprazole (PRILOSEC) capsule 40 mg 12-24 14:00: 00 Yes 40mg 40 mg, Oral, DAILY, First dose on Thu12/24/22 at 0900, Until Discontinu ed [facility] heparin (porcine) injection 5,000 Units 12-24 13:00: 00 Yes 5000U 5,000 Units, Subcutaneo us, Q12H, First dose on Thu12/24/22 at 0800, Until Discontinu ed, [facility] Nitrofur[facility] oin&Nit. Macrocryst (MACROBID) 100 mg capsule 100 mg 12-24 13:00: 00 12-31 12:59 :00 No 100mg 100 mg, Oral, BID, 14 doses, First dose on Thu12/24/22 at 0800, Last dose on Thu12/30/22 at 2000, Routine
Reason for Anti-Infec tive: Documented Infection< br>Documen perla Infection Site: Urine
D uration of Therapy: 7 days [facility] insulin NPH and regular human 70-30 (70-30 U-100 INSULIN) 100 unit/mL (70-30) injection 30 Units 12-24 12:30: 00 12-24 15:54 :43 No 30U 30 Units, Subcutaneo us, BIDAC, First dose (after last modificati on) on Thu12/24/22 at 0730, Until Discontinu ed, Routine [facility] amitriptyli ne (ELAVIL) tablet 100 mg 12-24 04:15: 00 Yes 100mg 100 mg, Oral, QHS, First dose on Thu12/23/22 at 2315, Until Discontinu ed, Routine [facility] HYDROcodone -acetaminop hen (NORCO) 10-325 mg tablet 1 tablet 12-24 04:02: 52 Yes 1{tbl} 1 tablet, Oral, Q6HPRN, Starting on Thu12/23/22 at 2302, Until Discontinu ed, Routine, Pain (scale 4-6) [facility] atorvastati n (LIPITOR) tablet 80 mg 12-24 02:00: 00 Yes 80mg 80 mg, Oral, QHS, First dose on Thu12/23/22 at 2100, Until Discontinu ed, Routine [facility] clopidogreL (PLAVIX) 75 mg tablet 75 mg 12-24 02:00: 00 Yes 75mg 75 mg, Oral, DAILY, First dose on Thu12/23/22 at 2099, Until Discontinu ed, Routine
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 [facility] dextrose 50 % in water (D50W) injection 25 mL 12-24 01:52: 50 Yes 25mL 25 mL, Slow IV Push, PRN, Starting on Thu12/23/22 at 2051, Until Discontinu ed, TRISTAN, Blood Glucose < or = 70 mg/dL and patient is NPO, unable to swallow or has mental status changes. [facility] acetaminoph en (TYLENOL) tablet 650 mg 12-24 01:51: 40 Yes 650mg 650 mg, Oral, Q6HPRN, Starting on Thu12/23/22 at 2050, Until Discontinu ed, Routine, Pain (scale 1-3), Temp > 37.5 C [facility] labetaloL (NORMODYNE) injection 10 mg 12-24 01:49: 29 Yes 10mg 10 mg, Slow IV Push, [id number], 5 doses, Starting on Thu12/23/22 at 2048, Until Discontinu ed, Routine, Hypertensi on SBP> 220 [facility] Nitrofurant oin&Nit. Macrocryst (MACROBID) 100 mg capsule 100 mg 12-24 00:30: 00 12-24 00:37 :00 No 100mg 100 mg, Oral, ONCE, 1 dose, On Thu12/23/22 at 1930, TRISTAN
Re ason for Anti-Infec tive: Documented Infection< br>Documen perla Infection Site: Urine
D uration of Therapy: Other (see Comments) [facility] insulin regular human (HUMULIN R) injection 8 Units 12-24 00:15: 00 12-23 23:37 :00 No 8U 8 Units, Slow IV Push, ONCE, 1 dose, On Thu12/23/22 at 1915, STAT
In dication for insulin: Hyperglyce thanh [facility] NaCl 0.9% (NS) bolus infusion 1,000 mL 12-24 00:15: 00 12-23 23:37 :00 No 1000mL at 999 mL/hr, 1,000 mL, IV Infusion, ONCE, 1 dose, On Thu12/23/22 at 1915, STAT [facility] Insulin Syringe-Nee dle U-100 0.3 mL 31 x 3/8" Syrg 12-24 00:00: 00 Yes [id number] Use as directed to inject insulin (lantus once per day, humalog three times per day) [facility] Blood-Gluco se Meter (ACCU-CHEK GUIDE GLUCOSE METER) [facility] 12-24 00:00: 00 Yes [id number] Use as directed [facility] Insulin Syringe-Nee dle U-100 0.3 mL 31 x 3/8" Syrg 12-24 00:00: 00 Yes [id number] Use as directed to inject insulin (lantus once per day, humalog three times per day) [facility] Blood-Gluco se Meter (ACCU-CHEK GUIDE GLUCOSE METER) [facility] 12-24 00:00: 00 Yes [id number] Use as directed [facility] lancets 33 gauge [facility] 12-24 00:00: 00 Yes [id number] Use as directed to test blood sugars four times per day [facility] blood sugar diagnostic (ACCU-CHEK GUIDE TEST STRIPS) strip 12-24 00:00: 00 01-07 00:00 :00 No [id number] Use as directed to test blood sugars four times per day [facility] insulin glargine 100 unit/mL injection 12-24 00:00: 00 01-24 04:59 :00 No [id number] 32U inject 32 Units under the skin at bedtime for 30 days. [facility] insulin lispro, human, 100 unit/mL injection 12-24 00:00: 00 01-24 04:59 :00 No [id number] 10U inject 10 Units under the skin in the morning and 10 Units at noon and 10 Units in the evening. inject with meals. Do all this for 30 days. [facility] Nitrofurant oin&Nit. Macrocryst 100 mg capsule 12-24 00:00: 00 12-30 04:59 :00 No [id number] 100mg Take 1 capsule by mouth in the morning and 1 capsule in the evening. Do all this for 5 days. [facility] SITagliptin phosphate (JANUVIA) 100 mg tablet 12-19 00:00: 00 10-22 00:00 :00 No [id number] 100mg Take 1 tablet by mouth in the morning. [facility] amitriptyli ne 100 mg tablet 12-19 00:00: 00 10-22 00:00 :00 No [id number] 100mg Take 1 tablet by mouth at bedtime. [facility] lisinopriL 10 mg tablet 12-19 00:00: 00 07-17 00:00 :00 No [id number] 15mg Take 1.5 tablets by mouth in the morning. Hold if BP < 110/60 [facility] atorvastati n 80 mg tablet 12-19 00:00: 00 05-20 00:00 :00 No [id number] 80mg Take 1 tablet by mouth at bedtime. [facility] metFORMIN 1,000 mg tablet 12-19 00:00: 00 03-26 00:00 :00 No [id number] 1000mg Take 1 tablet by mouth in the morning and 1 tablet in the evening. Take with meals. [facility] nicotine 14 mg/24 hr patch 12-19 00:00: 00 03-18 00:00 :00 No [id number] 1{patch } Apply 1 Patch to area(s) every 24 (twenty-fo ur) hours. Apply 21mg patch daily x 6 weeks; then apply 14mf patch daily x 2 weeks; then apply 7mg patch daily x 2 weeks. Stop smoking on initiation of therapy [facility] nicotine 7 mg/24 hr patch 12-19 00:00: 00 03-18 00:00 :00 No [id number] 1{patch } Apply 1 Patch to area(s) every 24 (twenty-fo ur) hours. Apply 21mg patch daily x 6 weeks; then apply 14mf patch daily x 2 weeks; then apply 7mg patch daily x 2 weeks. Stop smoking on initiation of therapy [facility] nicotine 21 mg/24 hr patch 12-19 00:00: 00 03-18 00:00 :00 No [id number] 1{patch } Apply 1 Patch to area(s) in the morning. Apply 21mg patch daily x 6 weeks; then apply 14mf patch daily x 2 weeks; then apply 7mg patch daily x 2 weeks. Stop smoking on initiation of therapy [facility] Insulin Asp Prt-Insulin Aspart (NOVOLOG MIX 70-30) 100 unit/mL (70-30) injection 12-19 00:00: 00 12-24 00:00 :00 No [id number] INJECT 30 UNITS UNDER THE SKIN 2 (TWO) TIMES DAILY WITH MEALS. E11.65 [facility] insulin regular human (HUMULIN R) injection 6 Units 12-10 23:00: 00 12-10 22:29 :00 No 6U 6 Units, Slow IV Push, ONCE, 1 dose, On Thu12/10/22 at 1800, STAT
In dication for insulin: Hyperglyce thanh [facility] Nitrofurant oin&Nit. Macrocryst (MACROBID) 100 mg capsule 100 mg 12-10 21:30: 00 12-10 21:24 :00 No 100mg 100 mg, Oral, ONCE NOW, 1 dose, On Thu12/10/22 at 1630, TRISTAN
Re ason for Anti-Infec tive: Documented Infection< br>Documen perla Infection Site: Urine
D uration of Therapy: 7 days [facility] NaCl 0.9% (NS) bolus infusion 1,000 mL 12-10 21:30: 00 12-10 22:51 :00 No 1000mL at 999 mL/hr, 1,000 mL, IV Piggyback, ONCE, 1 dose, On Thu12/10/22 at 1630, STAT [facility] insulin regular human (HUMULIN R) injection 8 Units 12-10 21:30: 00 12-10 20:55 :00 No 8U 8 Units, Slow IV Push, ONCE, 1 dose, On Thu12/10/22 at 1630, STAT
In dication for insulin: Hyperglyce thanh [facility] Nitrofurant oin&Nit. Macrocryst 100 mg capsule 12-10 00:00: 00 12-18 04:59 :00 No [id number] 100mg Take 1 capsule by mouth in the morning and 1 capsule in the evening. Do all this for 7 days. [facility] fluconazole 150 mg tablet 11-18 00:00: 00 11-19 04:59 :00 No [id number] 150mg Take 1 tablet by mouth once now for 1 dose. [facility] butalbital- acetaminoph en-caff 50-325-40 mg tablet 09-18 00:00: 00 10-22 00:00 :00 No [id number] TAKE 1 CAPSULE BY MOUTH EVERY 8 HOURS NEEDED FOR MIGRAINE [facility] omeprazole 40 mg capsule 09-18 00:00: 00 08-21 00:00 :00 No [id number] 40mg Take 1 capsule by mouth in the morning. [facility] lisinopriL 10 mg tablet 09-18 00:00: 00 12-19 00:00 :00 No [id number] 15mg Take 1.5 tablets by mouth in the morning. Hold if BP < 110/60 [facility] Insulin Asp Prt-Insulin Aspart (NOVOLOG MIX 70-30) 100 unit/mL (70-30) injection 09-18 00:00: 00 12-19 00:00 :00 No [id number] INJECT 30 UNITS UNDER THE SKIN 2 (TWO) TIMES DAILY WITH MEALS. E11.65 [facility] metFORMIN 1,000 mg tablet 09-18 00:00: 00 12-19 00:00 :00 No [id number] 1000mg Take 1 tablet by mouth in the morning and 1 tablet in the evening. Take with meals. [facility] SITagliptin phosphate (JANUVIA) 100 mg tablet 09-18 00:00: 00 12-19 00:00 :00 No [id number] 100mg Take 1 tablet by mouth in the morning. [facility] atorvastati n 40 mg tablet 09-18 00:00: 00 12-19 00:00 :00 No [id number] 40mg Take 1 tablet by mouth at bedtime. [facility] amitriptyli ne 100 mg tablet 09-18 00:00: 00 12-19 00:00 :00 No [id number] 100mg Take 1 tablet by mouth at bedtime. [facility] JANUVIA 100 mg tablet 08-14 00:00: 00 09-18 00:00 :00 No [id number] TAKE 1 TABLET BY MOUTH EVERY DAY [facility] butalbital- acetaminoph en-caff 50-325-40 mg tablet 1-12 00:00: 00 09-18 00:00 :00 No [id number] TAKE 1 CAPSULE BY MOUTH EVERY 8 HOURS NEEDED FOR MIGRAINE [facility] Methylpredn isolone 4 mg tablet 2021-07 2-29 00:00: 00 07-16 05:59 :00 No [id number] 4mg Take 1 tablet by mouth every 12 (twelve) hours for 5 days. [facility] METFORMIN 1,000 mg tablet 2021-07 2 00:00: 00 09-18 00:00 :00 No [id number] TAKE 1 TABLET BY MOUTH TWICE A DAY WITH MEALS [facility] NOVOLOG MIX 70-30 100 unit/mL (70-30) injection 2021-07 00:00: 00 09-18 00:00 :00 No [id number] INJECT 30 UNITS UNDER THE SKIN 2 (TWO) TIMES DAILY WITH MEALS. E11.65 [facility] OMEPRAZOLE 40 mg capsule 2021-07 00:00: 00 09-18 00:00 :00 No [id number] TAKE 1 CAPSULE BY MOUTH EVERY DAY [facility] AMITRIPTYLI NE 100 mg tablet 2021-07 1-26 00:00: 00 09-18 00:00 :00 No [id number] 06 TAKE 1 TABLET BY MOUTH EVERY DAY AT BEDTIME [facility] cefTRIAXone (ROCEPHIN) injection 500 mg 2021-07 0- 21:15: 00 05-02 20:58 :00 No [id number] 500mg [facility] amoxicillin -clavulanat e (AUGMENTIN) 875-125 mg per tablet 2021-07 0-21 00:00: 00 09-18 00:00 :00 No [id number] 1{tbl} Take 1 tablet by mouth in the morning and 1 tablet in the evening. [facility] METFORMIN 1,000 mg tablet 2021-07 0-18 00:00: 00 06-19 00:00 :00 No [id number] TAKE ONE (1) TABLET BY MOUTH TWICE DAILY WITH MEALS [facility] lisinopriL 10 mg tablet 2021-07 0-11 00:00: 00 09-18 00:00 :00 No [id number] 15mg Take 1.5 tablets by mouth in the morning. Hold if BP < 110/60 [facility] OMEPRAZOLE 40 mg capsule 9-16 00:00: 00 06-19 00:00 :00 No [id number] TAKE 1 CAPSULE BY MOUTH EVERY DAY [facility] atorvastati n 40 mg tablet -09 00:00: 00 09-18 00:00 :00 No [id number] 40mg Take 1 tablet by mouth at bedtime. [facility] NOVOLOG MIX 70-30 100 unit/mL (70-30) injection 8-24 00:00: 00 06-19 00:00 :00 No [id number] INJECT 30 UNITS SUBCUTANEO USLY TWICE DAILY WITH MEALS [facility] benzonatate 200 mg capsule 7-13 00:00: 00 09-18 00:00 :00 No [id number] 200mg Take 1 capsule by mouth 3 (three) times daily as needed for Cough. [facility] BUTALBITAL- ACETAMINOPH EN-CAFF 50-325-40 mg tablet 6-23 00:00: 00 07-24 00:00 :00 No [id number] TAKE 1 CAPSULE BY MOUTH EVERY 8 HOURS NEEDED FOR MIGRAINE [facility] AMITRIPTYLI NE 100 mg tablet 5-10 00:00: 00 06-07 00:00 :00 No [id number] 06 TAKE 1 TABLET BY MOUTH EVERYDAY AT BEDTIME [facility] OMEPRAZOLE 40 mg capsule 5-10 00:00: 00 03-28 00:00 :00 No [id number] TAKE 1 CAPSULE BY MOUTH EVERY DAY [facility] SITagliptin (JANUVIA) 100 mg tablet 4-29 00:00: 00 08-14 00:00 :00 No [id number] 100mg Take 1 tablet by mouth daily. [facility] metFORMIN 1,000 mg tablet 4-29 00:00: 00 04-29 00:00 :00 No [id number] 1000mg Take 1 tablet by mouth 2 (two) times daily with meals. [facility] lisinopriL 10 mg tablet 11-08 00:00: 00 04-22 00:00 :00 No [id number] 15mg Take 1.5 tablets by mouth daily. Hold if BP < 110/60 [facility] Insulin Asp Prt-Insulin Aspart (NOVOLOG MIX 70-30) 100 unit/mL (70-30) injection 11-08 00:00: 00 03-05 00:00 :00 No [id number] 30U inject 30 Units under the skin 2 (two) times daily with meals. E11.65 [facility] pregabalin (LYRICA) 75 mg capsule 08-08 00:00: 00 09-18 00:00 :00 No [id number] 75mg Take 1 capsule by mouth 2 (two) times daily. [facility] Butalbital- Acetaminoph en-Caff (FIORICET) 50-300-40 mg per capsule 08-08 00:00: 00 07-24 00:00 :00 No [id number] 1{capsu le} Take 1 capsule by mouth every 8 (eight) hours as needed (Migraine) . [facility] Nitrofurant oin&Nit. Macrocryst (MACROBID) 100 mg capsule 07-13 00:00: 00 09-18 00:00 :00 No [id number] 100mg Take 1 capsule by mouth 2 (two) times daily. [facility] [facility] AMITRIPTYLI NE 100 mg tablet 2020-07 00:00: 00 11-19 00:00 :00 No [id number] 06 TAKE 1 TABLET BY MOUTH EVERYDAY AT BEDTIME [facility] Insulin Asp Prt-Insulin Aspart (NOVOLOG MIX 70-30) 100 unit/mL (70-30) injection 2020-07 00:00: 00 11-08 00:00 :00 No [id number] 30U inject 30 Units under the skin 2 (two) times daily with meals. E11.65 [facility] metFORMIN 1,000 mg tablet 2020-07 00:00: 00 11-08 00:00 :00 No [id number] 1000mg Take 1 tablet by mouth 2 (two) times daily with meals. [facility] SITagliptin (JANUVIA) 100 mg tablet 2020-07 00:00: 00 11-08 00:00 :00 No [id number] 100mg Take 1 tablet by mouth daily. [facility] OMEPRAZOLE 40 mg capsule 2020-07 00:00: 00 11-19 00:00 :00 No [id number] TAKE 1 CAPSULE BY MOUTH EVERY DAY [facility] 2020-07 00:00: 00 Yes Standard rollatorR5 5/W19.XXXS /M79.604/R 06.02/I50. 32/I51.7/E 11.3511: Use daily for ambulation /fall precaution [facility] 2020-07 00:00: 00 Yes [id number] Standard rollatorR5 5/W19.XXXS /M79.604/R 06.02/I50. 32/I51.7/E 11.3511: Use daily for ambulation /fall precaution [facility] Walker (ULTRA-LIGH T ROLLATOR) [facility] 2020-07 00:00: 00 Yes [id number] R55/W19.XX XS/M79.604 /R06.02/I5 0.32/I51.7 /E11.3511: Use daily for ambulation /fall precaution (brand pending insurance approval) [facility] Supply Kit 2020-07 00:00: 00 Yes [id number] I10 - Dispense blood pressure cuff (any brand), take BP at home BID [facility] Kit 2020-07 00:00: 00 Yes [id number] I10 - Dispense blood pressure cuff (any brand), take BP at home BID [facility] mupirocin 2 % ointment 2020-07 0-20 00:00: 00 09-18 00:00 :00 No [id number] Apply to area(s) 3 (three) times daily. [facility] atorvastati n 40 mg tablet 2020-07 0-20 00:00: 00 03-21 00:00 :00 No [id number] 40mg Take 1 tablet by mouth at bedtime. [facility] lisinopriL 5 mg tablet 2020-07 0-20 00:00: 00 11-08 00:00 :00 No [id number] 2.5mg Take 0.5 tablets by mouth daily. Hold if BP < 110/60 [facility] ondansetron (ZOFRAN ODT) 4 mg disintegrat ing tablet 8-04 00:00: 00 12-24 00:00 :00 No [id number] 4mg Take 1 tablet by mouth every 8 (eight) hours as needed for Nausea and Vomiting (N/V). [facility] ALBUTEROL 90 mcg/actuati on inhaler 2-02 00:00: 00 Yes [id number] INHALE 2 PUFFS BY MOUTH EVERY 6 HOURS NEEDED FOR SHORTNESS OF BREATH [facility] HYDROcodone -acetaminop hen 7.5-325 mg per tablet 5-11 00:00: 00 03-26 00:00 :00 No 1{tbl} Take 1 tablet by mouth 2 (two) times daily. [facility] ondansetron 4 mg tablet 1-27 00:00: 00 12-24 00:00 :00 No TAKE 1 TABLET BY MOUTH EVERY 4 HOURS NEEDED FOR NAUSEA [facility] Immunizations Ordered Immunization Name Filled Immunization Name Date Status Comments Source Pneumococcal 20 Conjugate, PCV20 (Prevnar 20) 2022-12-19 00:00:00 Completed [facility] Pneumococcal 20 Conjugate, PCV20 (Prevnar 20) 2022-12-19 00:00:00 Completed [facility] Pneumococcal 20 Conjugate, PCV20 (Prevnar 20) 2022-12-19 00:00:00 Completed [facility] Pneumococcal 20 Conjugate, PCV20 (Prevnar 20) 2022-12-19 00:00:00 Completed [facility] Pneumococcal 20 Conjugate, PCV20 (Prevnar 20) 2022-12-19 00:00:00 Completed [facility] Pneumococcal 20 Conjugate, PCV20 (Prevnar 20) 2022-12-19 00:00:00 Completed [facility] Pneumococcal 20 Conjugate, PCV20 (Prevnar 20) 2022-12-19 00:00:00 Completed [facility] Pneumococcal 20 Conjugate, PCV20 (Prevnar 20) 2022-12-19 00:00:00 Completed [facility] Pneumococcal 20 Conjugate, PCV20 (Prevnar 20) 2022-12-19 00:00:00 Completed [facility] Pneumococcal 20 Conjugate, PCV20 (Prevnar 20) 2022-12-19 00:00:00 Completed [facility] Pneumococcal 20 Conjugate, PCV20 (Prevnar 20) 2022-12-19 00:00:00 Completed [facility] Pneumococcal 20 Conjugate, PCV20 (Prevnar 20) 2022-12-19 00:00:00 Completed [facility] Pneumococcal 20 Conjugate, PCV20 (Prevnar 20) 2022-12-19 00:00:00 Completed [facility] Pneumococcal 20 Conjugate, PCV20 (Prevnar 20) 2022-12-19 00:00:00 Completed [facility] Pneumococcal 20 Conjugate, PCV20 (Prevnar 20) 2022-12-19 00:00:00 Completed [facility] Pneumococcal 20 Conjugate, PCV20 (Prevnar 20) 2022-12-19 00:00:00 Completed [facility] Pneumococcal 20 Conjugate, PCV20 (Prevnar 20) 2022-12-19 00:00:00 Completed [facility] Pneumococcal 20 Conjugate, PCV20 (Prevnar 20) 2022-12-19 00:00:00 Completed [facility] Pneumococcal 20 Conjugate, PCV20 (Prevnar 20) 2022-12-19 00:00:00 Completed [facility] Pneumococcal 20 Conjugate, PCV20 (Prevnar 20) 2022-12-19 00:00:00 Completed [facility] Influenza Virus Vaccine Quad IM, Preserv and ABX Free 6 MO-64 YRS 2022-05-02 00:00:00 Completed [facility] Influenza Virus Vaccine Quad IM, Preserv and ABX Free 6 MO-64 YRS 2022-05-02 00:00:00 Completed [facility] Influenza Virus Vaccine Quad IM, Preserv and ABX Free 6 MO-64 YRS 2022-05-02 00:00:00 Completed [facility] Influenza Virus Vaccine Quad IM, Preserv and ABX Free 6 MO-64 YRS 2022-05-02 00:00:00 Completed [facility] Influenza Virus Vaccine Quad IM, Preserv and ABX Free 6 MO-64 YRS 2022-05-02 00:00:00 Completed [facility] Influenza Virus Vaccine Quad IM, Preserv and ABX Free 6 MO-64 YRS 2022-05-02 00:00:00 Completed [facility] Influenza Virus Vaccine Quad IM, Preserv and ABX Free 6 MO-64 YRS 2022-05-02 00:00:00 Completed [facility] Influenza Virus Vaccine Quad IM, Preserv and ABX Free 6 MO-64 YRS 2022-05-02 00:00:00 Completed [facility] Influenza Virus Vaccine Quad IM, Preserv and ABX Free 6 MO-64 YRS 2022-05-02 00:00:00 Completed [facility] Influenza Virus Vaccine Quad IM, Preserv and ABX Free 6 MO-64 YRS 2022-05-02 00:00:00 Completed [facility] Influenza Virus Vaccine Quad IM, Preserv and ABX Free 6 MO-64 YRS 2022-05-02 00:00:00 Completed [facility] Influenza Virus Vaccine Quad IM, Preserv and ABX Free 6 MO-64 YRS 2022-05-02 00:00:00 Completed [facility] Influenza Virus Vaccine Quad IM, Preserv and ABX Free 6 MO-64 YRS 2022-05-02 00:00:00 Completed [facility] Influenza Virus Vaccine Quad IM, Preserv and ABX Free 6 MO-64 YRS 2022-05-02 00:00:00 Completed [facility] Influenza Virus Vaccine Quad IM, Preserv and ABX Free 6 MO-64 YRS 2022-05-02 00:00:00 Completed [facility] Influenza Virus Vaccine Quad IM, Preserv and ABX Free 6 MO-64 YRS 2022-05-02 00:00:00 Completed [facility] Influenza Virus Vaccine Quad IM, Preserv and ABX Free 6 MO-64 YRS 2022-05-02 00:00:00 Completed [facility] Influenza Virus Vaccine Quad IM, Preserv and ABX Free 6 MO-64 YRS 2022-05-02 00:00:00 Completed [facility] Influenza Virus Vaccine Quad IM, Preserv and ABX Free 6 MO-64 YRS 2022-05-02 00:00:00 Completed [facility] Influenza Virus Vaccine Quad IM, Preserv and ABX Free 6 MO-64 YRS 2022-05-02 00:00:00 Completed [facility] Influenza Virus Vaccine Quad IM, Preserv and ABX Free 6 MO-64 YRS 2022-05-02 00:00:00 Completed [facility] Influenza Virus Vaccine Quad IM, Preserv and ABX Free 6 MO-64 YRS 2022-05-02 00:00:00 Completed [facility] Influenza Virus Vaccine Quad IM, Preserv and ABX Free 6 MO-64 YRS 2022-05-02 00:00:00 Completed [facility] Influenza Virus Vaccine Quad IM, Preserv and ABX Free 6 MO-64 YRS 2022-05-02 00:00:00 Completed [facility] Influenza Virus Vaccine Quad IM, Preserv and ABX Free 6 MO-64 YRS 2022-05-02 00:00:00 Completed [facility] Influenza Virus Vaccine Quad IM, Preserv and ABX Free 6 MO-64 YRS 2022-05-02 00:00:00 Completed [facility] Influenza Virus Vaccine Quad IM, Preserv and ABX Free 6 MO-64 YRS 2022-05-02 00:00:00 Completed [facility] Influenza Virus Vaccine Quad IM, Preserv and ABX Free 6 MO-64 YRS 2022-05-02 00:00:00 Completed [facility] Influenza Virus Vaccine Quad IM, Preserv and ABX Free 6 MO-64 YRS 2022-05-02 00:00:00 Completed [facility] Influenza Virus Vaccine Quad IM, Preserv and ABX Free 6 MO-64 YRS 2022-05-02 00:00:00 Completed [facility] Influenza Virus Vaccine Quad IM, Preserv and ABX Free 6 MO-64 YRS 2022-05-02 00:00:00 Completed [facility] Influenza Virus Vaccine Quad IM, Preserv and ABX Free 6 MO-64 YRS 2022-05-02 00:00:00 Completed [facility] Influenza Virus Vaccine Quad IM, Preserv and ABX Free 6 MO-64 YRS 2022-05-02 00:00:00 Completed [facility] Influenza Virus Vaccine Quad IM, Preserv and ABX Free 6 MO-64 YRS 2022-05-02 00:00:00 Completed [facility] Influenza Virus Vaccine Quad IM, Preserv and ABX Free 6 MO-64 YRS 2022-05-02 00:00:00 Completed [facility] Influenza Virus Vaccine Quad IM, Preserv and ABX Free 6 MO-64 YRS 2022-05-02 00:00:00 Completed [facility] Influenza Virus Vaccine Quad IM, Preserv and ABX Free 6 MO-64 YRS 2022-05-02 00:00:00 Completed [facility] Influenza Virus Vaccine Quad IM, Preserv and ABX Free 6 MO-64 YRS 2022-05-02 00:00:00 Completed [facility] Influenza Virus Vaccine Quad IM, Preserv and ABX Free 6 MO-64 YRS 2022-05-02 00:00:00 Completed [facility] Influenza Virus Vaccine Quad IM, Preserv and ABX Free 6 MO-64 YRS 2022-05-02 00:00:00 Completed [facility] Influenza Virus Vaccine Quad IM, Preserv and ABX Free 6 MO-64 YRS 2022-05-02 00:00:00 Completed [facility] Influenza Virus Vaccine Quad IM, Preserv and ABX Free 6 MO-64 YRS 2022-05-02 00:00:00 Completed [facility] Influenza Virus Vaccine Quad IM, Preserv and ABX Free 6 MO-64 YRS 2022-05-02 00:00:00 Completed [facility] Influenza Virus Vaccine Quad IM, Preserv and ABX Free 6 MO-64 YRS 2022-05-02 00:00:00 Completed [facility] Influenza Virus Vaccine Quad IM, Preserv and ABX Free 6 MO-64 YRS 2022-05-02 00:00:00 Completed [facility] Influenza Virus Vaccine Quad IM, Preserv and ABX Free 6 MO-64 YRS 2022-05-02 00:00:00 Completed [facility] Influenza Virus Vaccine Quad IM, Preserv and ABX Free 6 MO-64 YRS 2022-05-02 00:00:00 Completed [facility] Influenza Virus Vaccine Quad IM, Preserv and ABX Free 6 MO-64 YRS 2022-05-02 00:00:00 Completed [facility] Influenza Virus Vaccine Quad IM, Preserv and ABX Free 6 MO-64 YRS 2022-05-02 00:00:00 Completed [facility] Influenza Virus Vaccine Quad IM, Preserv and ABX Free 6 MO-64 YRS 2022-05-02 00:00:00 Completed [facility] Influenza Virus Vaccine Quad IM, Preserv and ABX Free 6 MO-64 YRS 2022-05-02 00:00:00 Completed [facility] Influenza Virus Vaccine Quad IM, Preserv and ABX Free 6 MO-64 YRS 2022-05-02 00:00:00 Completed [facility] Influenza Virus Vaccine Quad IM, Preserv and ABX Free 6 MO-64 YRS 2022-05-02 00:00:00 Completed [facility] Influenza Virus Vaccine Quad IM, Preserv and ABX Free 6 MO-64 YRS 2022-05-02 00:00:00 Completed [facility] Influenza Virus Vaccine Quad IM, Preserv and ABX Free 6 MO-64 YRS 2022-05-02 00:00:00 Completed [facility] Influenza Virus Vaccine Quad IM, Preserv and ABX Free 6 MO-64 YRS 2022-05-02 00:00:00 Completed [facility] Influenza Virus Vaccine Quad IM, Preserv and ABX Free 6 MO-64 YRS 2022-05-02 00:00:00 Completed [facility] Influenza Virus Vaccine Quad IM, Preserv and ABX Free 6 MO-64 YRS (FLUCELVAX) 2022-05-02 00:00:00 Completed [facility] Influenza Virus Vaccine Quad IM, Preserv and ABX Free 6 MO-64 YRS (FLUCELVAX) 2022-05-02 00:00:00 Completed [facility] Influenza Virus Vaccine Quad IM, Preserv and ABX Free 6 MO-64 YRS (FLUCELVAX) 2022-05-02 00:00:00 Completed [facility] Influenza Virus Vaccine Quad IM, Preserv and ABX Free 6 MO-64 YRS (FLUCELVAX) 2022-05-02 00:00:00 Completed [facility] Influenza Virus Vaccine Quad IM, Preserv and ABX Free 6 MO-64 YRS (FLUCELVAX) 2022-05-02 00:00:00 Completed [facility] Pneumococcal Polysaccharide, PPSV23 (PNEUMOVAX) 2021-10-04 00:00:00 Completed [facility] Influenza Virus Vaccine Quad .5 mL IM 6+ MO 2021-10-04 00:00:00 Completed [facility] Pneumococcal Polysaccharide, PPSV23 (PNEUMOVAX) 2021-10-04 00:00:00 Completed [facility] Influenza Virus Vaccine Quad .5 mL IM 6+ MO 2021-10-04 00:00:00 Completed [facility] Pneumococcal Polysaccharide, PPSV23 (PNEUMOVAX) 2021-10-04 00:00:00 Completed [facility] Influenza Virus Vaccine Quad .5 mL IM 6+ MO 2021-10-04 00:00:00 Completed [facility] Pneumococcal Polysaccharide, PPSV23 (PNEUMOVAX) 2021-10-04 00:00:00 Completed [facility] Influenza Virus Vaccine Quad .5 mL IM 6+ MO 2021-10-04 00:00:00 Completed [facility] Pneumococcal Polysaccharide, PPSV23 (PNEUMOVAX) 2021-10-04 00:00:00 Completed [facility] Influenza Virus Vaccine Quad .5 mL IM 6+ MO 2021-10-04 00:00:00 Completed [facility] Pneumococcal Polysaccharide, PPSV23 (PNEUMOVAX) 2021-10-04 00:00:00 Completed [facility] Influenza Virus Vaccine Quad .5 mL IM 6+ MO 2021-10-04 00:00:00 Completed [facility] Pneumococcal Polysaccharide, PPSV23 (PNEUMOVAX) 2021-10-04 00:00:00 Completed [facility] Influenza Virus Vaccine Quad .5 mL IM 6+ MO 2021-10-04 00:00:00 Completed [facility] Pneumococcal Polysaccharide, PPSV23 (PNEUMOVAX) 2021-10-04 00:00:00 Completed [facility] Influenza Virus Vaccine Quad .5 mL IM 6+ MO 2021-10-04 00:00:00 Completed [facility] Pneumococcal Polysaccharide, PPSV23 (PNEUMOVAX) 2021-10-04 00:00:00 Completed [facility] Influenza Virus Vaccine Quad .5 mL IM 6+ MO 2021-10-04 00:00:00 Completed [facility] Pneumococcal Polysaccharide, PPSV23 (PNEUMOVAX) 2021-10-04 00:00:00 Completed [facility] Influenza Virus Vaccine Quad .5 mL IM 6+ MO 2021-10-04 00:00:00 Completed [facility] Pneumococcal Polysaccharide, PPSV23 (PNEUMOVAX) 2021-10-04 00:00:00 Completed [facility] Influenza Virus Vaccine Quad .5 mL IM 6+ MO 2021-10-04 00:00:00 Completed [facility] Pneumococcal Polysaccharide, PPSV23 (PNEUMOVAX) 2021-10-04 00:00:00 Completed [facility] Influenza Virus Vaccine Quad .5 mL IM 6+ MO 2021-10-04 00:00:00 Completed [facility] Pneumococcal Polysaccharide, PPSV23 (PNEUMOVAX) 2021-10-04 00:00:00 Completed [facility] Influenza Virus Vaccine Quad .5 mL IM 6+ MO 2021-10-04 00:00:00 Completed [facility] Pneumococcal Polysaccharide, PPSV23 (PNEUMOVAX) 2021-10-04 00:00:00 Completed [facility] Influenza Virus Vaccine Quad .5 mL IM 6+ MO 2021-10-04 00:00:00 Completed [facility] Pneumococcal Polysaccharide, PPSV23 (PNEUMOVAX) 2021-10-04 00:00:00 Completed [facility] Influenza Virus Vaccine Quad .5 mL IM 6+ MO 2021-10-04 00:00:00 Completed [facility] Pneumococcal Polysaccharide, PPSV23 (PNEUMOVAX) 2021-10-04 00:00:00 Completed [facility] Influenza Virus Vaccine Quad .5 mL IM 6+ MO 2021-10-04 00:00:00 Completed [facility] Pneumococcal Polysaccharide, PPSV23 (PNEUMOVAX) 2021-10-04 00:00:00 Completed [facility] Influenza Virus Vaccine Quad .5 mL IM 6+ MO 2021-10-04 00:00:00 Completed [facility] Pneumococcal Polysaccharide, PPSV23 (PNEUMOVAX) 2021-10-04 00:00:00 Completed [facility] Influenza Virus Vaccine Quad .5 mL IM 6+ MO 2021-10-04 00:00:00 Completed [facility] Pneumococcal Polysaccharide, PPSV23 (PNEUMOVAX) 2021-10-04 00:00:00 Completed [facility] Influenza Virus Vaccine Quad .5 mL IM 6+ MO 2021-10-04 00:00:00 Completed [facility] Pneumococcal Polysaccharide, PPSV23 (PNEUMOVAX) 2021-10-04 00:00:00 Completed [facility] Influenza Virus Vaccine Quad .5 mL IM 6+ MO 2021-10-04 00:00:00 Completed [facility] Pneumococcal Polysaccharide, PPSV23 (PNEUMOVAX) 2021-10-04 00:00:00 Completed [facility] Influenza Virus Vaccine Quad .5 mL IM 6+ MO 2021-10-04 00:00:00 Completed [facility] Pneumococcal Polysaccharide, PPSV23 (PNEUMOVAX) 2021-10-04 00:00:00 Completed [facility] Influenza Virus Vaccine Quad .5 mL IM 6+ MO 2021-10-04 00:00:00 Completed [facility] Pneumococcal Polysaccharide, PPSV23 (PNEUMOVAX) 2021-10-04 00:00:00 Completed [facility] Influenza Virus Vaccine Quad .5 mL IM 6+ MO 2021-10-04 00:00:00 Completed [facility] Pneumococcal Polysaccharide, PPSV23 (PNEUMOVAX) 2021-10-04 00:00:00 Completed [facility] Influenza Virus Vaccine Quad .5 mL IM 6+ MO 2021-10-04 00:00:00 Completed [facility] Pneumococcal Polysaccharide, PPSV23 (PNEUMOVAX) 2021-10-04 00:00:00 Completed [facility] Influenza Virus Vaccine Quad .5 mL IM 6+ MO 2021-10-04 00:00:00 Completed [facility] Pneumococcal Polysaccharide, PPSV23 (PNEUMOVAX) 2021-10-04 00:00:00 Completed [facility] Influenza Virus Vaccine Quad .5 mL IM 6+ MO 2021-10-04 00:00:00 Completed [facility] Pneumococcal Polysaccharide, PPSV23 (PNEUMOVAX) 2021-10-04 00:00:00 Completed [facility] Influenza Virus Vaccine Quad .5 mL IM 6+ MO 2021-10-04 00:00:00 Completed [facility] Pneumococcal Polysaccharide, PPSV23 (PNEUMOVAX) 2021-10-04 00:00:00 Completed [facility] Influenza Virus Vaccine Quad .5 mL IM 6+ MO 2021-10-04 00:00:00 Completed [facility] Pneumococcal Polysaccharide, PPSV23 (PNEUMOVAX) 2021-10-04 00:00:00 Completed [facility] Influenza Virus Vaccine Quad .5 mL IM 6+ MO 2021-10-04 00:00:00 Completed [facility] Pneumococcal Polysaccharide, PPSV23 (PNEUMOVAX) 2021-10-04 00:00:00 Completed [facility] Influenza Virus Vaccine Quad .5 mL IM 6+ MO 2021-10-04 00:00:00 Completed [facility] Pneumococcal Polysaccharide, PPSV23 (PNEUMOVAX) 2021-10-04 00:00:00 Completed [facility] Influenza Virus Vaccine Quad .5 mL IM 6+ MO 2021-10-04 00:00:00 Completed [facility] Pneumococcal Polysaccharide, PPSV23 (PNEUMOVAX) 2021-10-04 00:00:00 Completed [facility] Influenza Virus Vaccine Quad .5 mL IM 6+ MO 2021-10-04 00:00:00 Completed [facility] Pneumococcal Polysaccharide, PPSV23 (PNEUMOVAX) 2021-10-04 00:00:00 Completed [facility] Influenza Virus Vaccine Quad .5 mL IM 6+ MO 2021-10-04 00:00:00 Completed [facility] Pneumococcal Polysaccharide, PPSV23 (PNEUMOVAX) 2021-10-04 00:00:00 Completed [facility] Influenza Virus Vaccine Quad .5 mL IM 6+ MO 2021-10-04 00:00:00 Completed [facility] Pneumococcal Polysaccharide, PPSV23 (PNEUMOVAX) 2021-10-04 00:00:00 Completed [facility] Influenza Virus Vaccine Quad .5 mL IM 6+ MO 2021-10-04 00:00:00 Completed [facility] Pneumococcal Polysaccharide, PPSV23 (PNEUMOVAX) 2021-10-04 00:00:00 Completed [facility] Influenza Virus Vaccine Quad .5 mL IM 6+ MO 2021-10-04 00:00:00 Completed [facility] Pneumococcal Polysaccharide, PPSV23 (PNEUMOVAX) 2021-10-04 00:00:00 Completed [facility] Influenza Virus Vaccine Quad .5 mL IM 6+ MO 2021-10-04 00:00:00 Completed [facility] Pneumococcal Polysaccharide, PPSV23 (PNEUMOVAX) 2021-10-04 00:00:00 Completed [facility] Influenza Virus Vaccine Quad .5 mL IM 6+ MO 2021-10-04 00:00:00 Completed [facility] Pneumococcal Polysaccharide, PPSV23 (PNEUMOVAX) 2021-10-04 00:00:00 Completed [facility] Influenza Virus Vaccine Quad .5 mL IM 6+ MO 2021-10-04 00:00:00 Completed [facility] Pneumococcal Polysaccharide, PPSV23 (PNEUMOVAX) 2021-10-04 00:00:00 Completed [facility] Influenza Virus Vaccine Quad .5 mL IM 6+ MO 2021-10-04 00:00:00 Completed [facility] Pneumococcal Polysaccharide, PPSV23 (PNEUMOVAX) 2021-10-04 00:00:00 Completed [facility] Influenza Virus Vaccine Quad .5 mL IM 6+ MO 2021-10-04 00:00:00 Completed [facility] Pneumococcal Polysaccharide, PPSV23 (PNEUMOVAX) 2021-10-04 00:00:00 Completed [facility] Influenza Virus Vaccine Quad .5 mL IM 6+ MO 2021-10-04 00:00:00 Completed [facility] Pneumococcal Polysaccharide, PPSV23 (PNEUMOVAX) 2021-10-04 00:00:00 Completed [facility] Influenza Virus Vaccine Quad .5 mL IM 6+ MO 2021-10-04 00:00:00 Completed [facility] Pneumococcal Polysaccharide, PPSV23 (PNEUMOVAX) 2021-10-04 00:00:00 Completed [facility] Influenza Virus Vaccine Quad .5 mL IM 6+ MO 2021-10-04 00:00:00 Completed [facility] Pneumococcal Polysaccharide, PPSV23 (PNEUMOVAX) 2021-10-04 00:00:00 Completed [facility] Influenza Virus Vaccine Quad .5 mL IM 6+ MO 2021-10-04 00:00:00 Completed [facility] Pneumococcal Polysaccharide, PPSV23 (PNEUMOVAX) 2021-10-04 00:00:00 [place] [facility] Influenza Virus Vaccine Quad .5 mL IM 6+ MO 2021-10-04 00:00:00 Completed [facility] Pneumococcal Polysaccharide, PPSV23 (PNEUMOVAX) 2021-10-04 00:00:00 Completed [facility] Influenza Virus Vaccine Quad .5 mL IM 6+ MO 2021-10-04 00:00:00 Completed [facility] Pneumococcal Polysaccharide, PPSV23 (PNEUMOVAX) 2021-10-04 00:00:00 Completed [facility] Influenza Virus Vaccine Quad .5 mL IM 6+ MO 2021-10-04 00:00:00 Completed [facility] Pneumococcal Polysaccharide, PPSV23 (PNEUMOVAX) 2021-10-04 00:00:00 Completed [facility] Influenza Virus Vaccine Quad .5 mL IM 6+ MO 2021-10-04 00:00:00 Completed [facility] Pneumococcal Polysaccharide, PPSV23 (PNEUMOVAX) 2021-10-04 00:00:00 Completed [facility] Influenza Virus Vaccine Quad .5 mL IM 6+ MO 2021-10-04 00:00:00 Completed [facility] Pneumococcal Polysaccharide, PPSV23 (PNEUMOVAX) 2021-10-04 00:00:00 Completed [facility] Influenza Virus Vaccine Quad .5 mL IM 6+ MO 2021-10-04 00:00:00 Completed [facility] Pneumococcal Polysaccharide, PPSV23 (PNEUMOVAX) 2021-10-04 00:00:00 Completed [facility] Influenza Virus Vaccine Quad .5 mL IM 6+ MO 2021-10-04 00:00:00 Completed [facility] Pneumococcal Polysaccharide, PPSV23 (PNEUMOVAX) 2021-10-04 00:00:00 Completed [facility] Influenza Virus Vaccine Quad .5 mL IM 6+ MO 2021-10-04 00:00:00 Completed [facility] Pneumococcal Polysaccharide, PPSV23 (PNEUMOVAX) 2021-10-04 00:00:00 Completed [facility] Influenza Virus Vaccine Quad .5 mL IM 6+ MO 2021-10-04 00:00:00 Completed [facility] Pneumococcal Polysaccharide, PPSV23 (PNEUMOVAX) 2021-10-04 00:00:00 Completed [facility] Influenza Virus Vaccine Quad .5 mL IM 6+ MO 2021-10-04 00:00:00 Completed [facility] Pneumococcal Polysaccharide, PPSV23 (PNEUMOVAX) 2021-10-04 00:00:00 Completed [facility] Influenza Virus Vaccine Quad .5 mL IM 6+ MO 2021-10-04 00:00:00 Completed [facility] Pneumococcal Polysaccharide, PPSV23 (PNEUMOVAX) 2021-10-04 00:00:00 Completed [facility] Influenza Virus Vaccine Quad .5 mL IM 6+ MO 2021-10-04 00:00:00 Completed [facility] Pneumococcal Polysaccharide, PPSV23 (PNEUMOVAX) 2021-10-04 00:00:00 Completed [facility] Influenza Virus Vaccine Quad .5 mL IM 6+ MO 2021-10-04 00:00:00 Completed [facility] Pneumococcal Polysaccharide, PPSV23 (PNEUMOVAX) 2021-10-04 00:00:00 Completed [facility] Influenza Virus Vaccine Quad .5 mL IM 6+ MO 2021-10-04 00:00:00 Completed [facility] Pneumococcal Polysaccharide, PPSV23 (PNEUMOVAX) 2021-10-04 00:00:00 Completed [facility] Influenza Virus Vaccine Quad .5 mL IM 6+ MO 2021-10-04 00:00:00 Completed [facility] Pneumococcal Polysaccharide, PPSV23 (PNEUMOVAX) 2021-10-04 00:00:00 Completed [facility] Influenza Virus Vaccine Quad .5 mL IM 6+ MO 2021-10-04 00:00:00 Completed [facility] Pneumococcal Polysaccharide, PPSV23 (PNEUMOVAX) 2021-10-04 00:00:00 Completed [facility] Influenza Virus Vaccine Quad .5 mL IM 6+ MO 2021-10-04 00:00:00 Completed [facility] Pneumococcal Polysaccharide, PPSV23 (PNEUMOVAX) 2021-10-04 00:00:00 Completed [facility] Influenza Virus Vaccine Quad .5 mL IM 6+ MO 2021-10-04 00:00:00 Completed [facility] Pneumococcal Polysaccharide, PPSV23 (PNEUMOVAX) 2021-10-04 00:00:00 Completed [facility] Influenza Virus Vaccine Quad .5 mL IM 6+ MO 2021-10-04 00:00:00 Completed [facility] Pneumococcal Polysaccharide, PPSV23 (PNEUMOVAX) 2021-10-04 00:00:00 Completed [facility] Influenza Virus Vaccine Quad .5 mL IM 6+ MO 2021-10-04 00:00:00 Completed [facility] Pneumococcal Polysaccharide, PPSV23 (PNEUMOVAX) 2021-10-04 00:00:00 Completed [facility] Influenza Virus Vaccine Quad .5 mL IM 6+ MO 2021-10-04 00:00:00 Completed [facility] Pneumococcal Polysaccharide, PPSV23 (PNEUMOVAX) 2021-10-04 00:00:00 Completed [facility] Influenza Virus Vaccine Quad .5 mL IM 6+ MO 2021-10-04 00:00:00 Completed [facility] Pneumococcal Polysaccharide, PPSV23 (PNEUMOVAX) 2021-10-04 00:00:00 Completed [facility] Influenza Virus Vaccine Quad .5 mL IM 6+ MO 2021-10-04 00:00:00 Completed [facility] Pneumococcal Polysaccharide, PPSV23 (PNEUMOVAX) 2021-10-04 00:00:00 Completed [facility] Influenza Virus Vaccine Quad .5 mL IM 6+ MO 2021-10-04 00:00:00 Completed [facility] Pneumococcal Polysaccharide, PPSV23 (PNEUMOVAX) 2021-10-04 00:00:00 Completed [facility] Influenza Virus Vaccine Quad .5 mL IM 6+ MO 2021-10-04 00:00:00 Completed [facility] Pneumococcal Polysaccharide, PPSV23 (PNEUMOVAX) 2021-10-04 00:00:00 Completed [facility] Influenza Virus Vaccine Quad .5 mL IM 6+ MO 2021-10-04 00:00:00 Completed [facility] Pneumococcal Polysaccharide, PPSV23 (PNEUMOVAX) 2021-10-04 00:00:00 Completed [facility] Influenza Virus Vaccine Quad .5 mL IM 6+ MO 2021-10-04 00:00:00 Completed [facility] Pneumococcal Polysaccharide, PPSV23 (PNEUMOVAX) 2021-10-04 00:00:00 Completed [facility] Influenza Virus Vaccine Quad .5 mL IM 6+ MO 2021-10-04 00:00:00 Completed [facility] Pneumococcal Polysaccharide, PPSV23 (PNEUMOVAX) 2021-10-04 00:00:00 Completed [facility] Influenza Virus Vaccine Quad .5 mL IM 6+ MO 2021-10-04 00:00:00 Completed [facility] Pneumococcal Polysaccharide, PPSV23 (PNEUMOVAX) 2021-10-04 00:00:00 Completed [facility] Influenza Virus Vaccine Quad .5 mL IM 6+ MO 2021-10-04 00:00:00 Completed [facility] Pneumococcal Polysaccharide, PPSV23 (PNEUMOVAX) 2021-10-04 00:00:00 Completed [facility] Influenza Virus Vaccine Quad .5 mL IM 6+ MO (FLUZONE/FLULAVAL/F LUARIX) 2021-10-04 00:00:00 Completed [facility] Pneumococcal Polysaccharide, PPSV23 (PNEUMOVAX) 2021-10-04 00:00:00 Completed [facility] Influenza Virus Vaccine Quad .5 mL IM 6+ MO (FLUZONE/FLULAVAL/F LUARIX) 2021-10-04 00:00:00 Completed [facility] Pneumococcal Polysaccharide, PPSV23 (PNEUMOVAX) 2021-10-04 00:00:00 Completed [facility] Influenza Virus Vaccine Quad .5 mL IM 6+ MO (FLUZONE/FLULAVAL/F LUARIX) 2021-10-04 00:00:00 Completed [facility] Pneumococcal Polysaccharide, PPSV23 (PNEUMOVAX) 2021-10-04 00:00:00 Completed [facility] Influenza Virus Vaccine Quad .5 mL IM 6+ MO (FLUZONE/FLULAVAL/F LUARIX) 2021-10-04 00:00:00 Completed [facility] Pneumococcal Polysaccharide, PPSV23 (PNEUMOVAX) 2021-10-04 00:00:00 Completed [facility] Influenza Virus Vaccine Quad .5 mL IM 6+ MO (FLUZONE/FLULAVAL/F LUARIX) 2021-10-04 00:00:00 Completed [facility] SARS-COV-2 COVID-19 PFIZER VACCINE 2021-03-08 00:00:00 Completed [facility] SARS-COV-2 COVID-19 PFIZER VACCINE 2021-03-08 00:00:00 Completed [facility] SARS-COV-2 COVID-19 PFIZER VACCINE 2021-03-08 00:00:00 Completed [facility] SARS-COV-2 COVID-19 PFIZER VACCINE 2021-03-08 00:00:00 Completed [facility] SARS-COV-2 COVID-19 PFIZER VACCINE 2021-03-08 00:00:00 Completed [facility] SARS-COV-2 COVID-19 PFIZER VACCINE 2021-03-08 00:00:00 Completed [facility] SARS-COV-2 COVID-19 PFIZER VACCINE 2021-03-08 00:00:00 Completed [facility] SARS-COV-2 COVID-19 PFIZER VACCINE 2021-03-08 00:00:00 Completed [facility] SARS-COV-2 COVID-19 PFIZER VACCINE 2021-03-08 00:00:00 Completed [facility] SARS-COV-2 COVID-19 PFIZER VACCINE 2021-03-08 00:00:00 Completed [facility] SARS-COV-2 COVID-19 PFIZER VACCINE 2021-03-08 00:00:00 Completed [facility] SARS-COV-2 COVID-19 PFIZER VACCINE 2021-03-08 00:00:00 Completed [facility] SARS-COV-2 COVID-19 PFIZER VACCINE 2021-03-08 00:00:00 Completed [facility] SARS-COV-2 COVID-19 PFIZER VACCINE 2021-03-08 00:00:00 Completed [facility] SARS-COV-2 COVID-19 PFIZER VACCINE 2021-03-08 00:00:00 Completed [facility] SARS-COV-2 COVID-19 PFIZER VACCINE 2021-03-08 00:00:00 Completed [facility] SARS-COV-2 COVID-19 PFIZER VACCINE 2021-03-08 00:00:00 Completed [facility] SARS-COV-2 COVID-19 PFIZER VACCINE 2021-03-08 00:00:00 Completed [facility] SARS-COV-2 COVID-19 PFIZER VACCINE 2021-03-08 00:00:00 Completed [facility] SARS-COV-2 COVID-19 PFIZER VACCINE 2021-03-08 00:00:00 Completed [facility] SARS-COV-2 COVID-19 PFIZER VACCINE 2021-03-08 00:00:00 Completed [facility] SARS-COV-2 COVID-19 PFIZER VACCINE 2021-03-08 00:00:00 Completed [facility] SARS-COV-2 COVID-19 PFIZER VACCINE 2021-03-08 00:00:00 Completed [facility] SARS-COV-2 COVID-19 PFIZER VACCINE 2021-03-08 00:00:00 Completed [facility] SARS-COV-2 COVID-19 PFIZER VACCINE 2021-03-08 00:00:00 Completed [facility] SARS-COV-2 COVID-19 PFIZER VACCINE 2021-03-08 00:00:00 Completed [facility] SARS-COV-2 COVID-19 PFIZER VACCINE 2021-03-08 00:00:00 Completed [facility] SARS-COV-2 COVID-19 PFIZER VACCINE 2021-03-08 00:00:00 Completed [facility] SARS-COV-2 COVID-19 PFIZER VACCINE 2021-03-08 00:00:00 Completed [facility] SARS-COV-2 COVID-19 PFIZER VACCINE 2021-03-08 00:00:00 Completed [facility] SARS-COV-2 COVID-19 PFIZER VACCINE 2021-03-08 00:00:00 Completed [facility] SARS-COV-2 COVID-19 PFIZER VACCINE 2021-03-08 00:00:00 Completed [facility] SARS-COV-2 COVID-19 PFIZER VACCINE 2021-03-08 00:00:00 Completed [facility] SARS-COV-2 COVID-19 PFIZER VACCINE 2021-03-08 00:00:00 Completed [facility] SARS-COV-2 COVID-19 PFIZER VACCINE 2021-03-08 00:00:00 Completed [facility] SARS-COV-2 COVID-19 PFIZER VACCINE 2021-03-08 00:00:00 Completed [facility] SARS-COV-2 COVID-19 PFIZER VACCINE 2021-03-08 00:00:00 Completed [facility] SARS-COV-2 COVID-19 PFIZER VACCINE 2021-03-08 00:00:00 Completed [facility] SARS-COV-2 COVID-19 PFIZER VACCINE 2021-03-08 00:00:00 Completed [facility] SARS-COV-2 COVID-19 PFIZER VACCINE 2021-03-08 00:00:00 Completed [facility] SARS-COV-2 COVID-19 PFIZER VACCINE 2021-03-08 00:00:00 Completed [facility] SARS-COV-2 COVID-19 PFIZER VACCINE 2021-03-08 00:00:00 Completed [facility] SARS-COV-2 COVID-19 PFIZER VACCINE 2021-03-08 00:00:00 Completed [facility] SARS-COV-2 COVID-19 PFIZER VACCINE 2021-03-08 00:00:00 Completed [facility] SARS-COV-2 COVID-19 PFIZER VACCINE 2021-03-08 00:00:00 Completed [facility] SARS-COV-2 COVID-19 PFIZER VACCINE 2021-03-08 00:00:00 Completed [facility] SARS-COV-2 COVID-19 PFIZER VACCINE 2021-03-08 00:00:00 Completed [facility] SARS-COV-2 COVID-19 PFIZER VACCINE 2021-03-08 00:00:00 Completed [facility] SARS-COV-2 COVID-19 PFIZER VACCINE 2021-03-08 00:00:00 Completed [facility] SARS-COV-2 COVID-19 PFIZER VACCINE 2021-03-08 00:00:00 Completed [facility] SARS-COV-2 COVID-19 PFIZER VACCINE 2021-03-08 00:00:00 Completed [facility] SARS-COV-2 COVID-19 PFIZER VACCINE 2021-03-08 00:00:00 Completed [facility] SARS-COV-2 COVID-19 PFIZER VACCINE 2021-03-08 00:00:00 Completed [facility] SARS-COV-2 COVID-19 PFIZER VACCINE 2021-03-08 00:00:00 Completed [facility] SARS-COV-2 COVID-19 PFIZER VACCINE 2021-03-08 00:00:00 Completed [facility] SARS-COV-2 COVID-19 PFIZER VACCINE 2021-03-08 00:00:00 Completed [facility] SARS-COV-2 COVID-19 PFIZER VACCINE 2021-03-08 00:00:00 Completed [facility] SARS-COV-2 COVID-19 PFIZER VACCINE 2021-03-08 00:00:00 Completed [facility] SARS-COV-2 COVID-19 PFIZER VACCINE 2021-03-08 00:00:00 Completed [facility] SARS-COV-2 COVID-19 PFIZER VACCINE 2021-03-08 00:00:00 Completed [facility] SARS-COV-2 COVID-19 PFIZER VACCINE 2021-03-08 00:00:00 Completed [facility] SARS-COV-2 COVID-19 PFIZER VACCINE 2021-03-08 00:00:00 Completed [facility] SARS-COV-2 COVID-19 PFIZER VACCINE 2021-03-08 00:00:00 Completed [facility] SARS-COV-2 COVID-19 PFIZER VACCINE 2021-03-08 00:00:00 Completed [facility] SARS-COV-2 COVID-19 PFIZER VACCINE 2021-03-08 00:00:00 Completed [facility] SARS-COV-2 COVID-19 PFIZER VACCINE 2021-03-08 00:00:00 Completed [facility] SARS-COV-2 COVID-19 PFIZER VACCINE 2021-03-08 00:00:00 Completed [facility] SARS-COV-2 COVID-19 PFIZER VACCINE 2021-03-08 00:00:00 Completed [facility] SARS-COV-2 COVID-19 PFIZER VACCINE 2021-03-08 00:00:00 Completed [facility] SARS-COV-2 COVID-19 PFIZER VACCINE 2021-03-08 00:00:00 Completed [facility] SARS-COV-2 COVID-19 PFIZER VACCINE 2021-03-08 00:00:00 Completed [facility] SARS-COV-2 COVID-19 PFIZER VACCINE 2021-03-08 00:00:00 Completed [facility] SARS-COV-2 COVID-19 PFIZER VACCINE 2021-03-08 00:00:00 Completed [facility] SARS-COV-2 COVID-19 PFIZER VACCINE 2021-03-08 00:00:00 Completed [facility] SARS-COV-2 COVID-19 PFIZER VACCINE 2021-03-08 00:00:00 Completed [facility] SARS-COV-2 COVID-19 PFIZER VACCINE 2021-03-08 00:00:00 Completed [facility] SARS-COV-2 COVID-19 PFIZER VACCINE 2021-03-08 00:00:00 Completed [facility] SARS-COV-2 COVID-19 PFIZER VACCINE 2021-03-08 00:00:00 Completed [facility] SARS-COV-2 COVID-19 PFIZER VACCINE 2021-03-08 00:00:00 Completed [facility] SARS-COV-2 COVID-19 PFIZER VACCINE 2021-03-08 00:00:00 Completed [facility] SARS-COV-2 COVID-19 PFIZER VACCINE 2021-02-15 00:00:00 Completed [facility] SARS-COV-2 COVID-19 PFIZER VACCINE 2021-02-15 00:00:00 Completed [facility] SARS-COV-2 COVID-19 PFIZER VACCINE 2021-02-15 00:00:00 Completed [facility] SARS-COV-2 COVID-19 PFIZER VACCINE 2021-02-15 00:00:00 Completed [facility] SARS-COV-2 COVID-19 PFIZER VACCINE 2021-02-15 00:00:00 Completed [facility] SARS-COV-2 COVID-19 PFIZER VACCINE 2021-02-15 00:00:00 Completed [facility] SARS-COV-2 COVID-19 PFIZER VACCINE 2021-02-15 00:00:00 Completed [facility] SARS-COV-2 COVID-19 PFIZER VACCINE 2021-02-15 00:00:00 Completed [facility] SARS-COV-2 COVID-19 PFIZER VACCINE 2021-02-15 00:00:00 Completed [facility] SARS-COV-2 COVID-19 PFIZER VACCINE 2021-02-15 00:00:00 Completed [facility] SARS-COV-2 COVID-19 PFIZER VACCINE 2021-02-15 00:00:00 Completed [facility] SARS-COV-2 COVID-19 PFIZER VACCINE 2021-02-15 00:00:00 Completed [facility] SARS-COV-2 COVID-19 PFIZER VACCINE 2021-02-15 00:00:00 Completed [facility] SARS-COV-2 COVID-19 PFIZER VACCINE 2021-02-15 00:00:00 Completed [facility] SARS-COV-2 COVID-19 PFIZER VACCINE 2021-02-15 00:00:00 Completed [facility] SARS-COV-2 COVID-19 PFIZER VACCINE 2021-02-15 00:00:00 Completed [facility] SARS-COV-2 COVID-19 PFIZER VACCINE 2021-02-15 00:00:00 Completed [facility] SARS-COV-2 COVID-19 PFIZER VACCINE 2021-02-15 00:00:00 Completed [facility] SARS-COV-2 COVID-19 PFIZER VACCINE 2021-02-15 00:00:00 Completed [facility] SARS-COV-2 COVID-19 PFIZER VACCINE 2021-02-15 00:00:00 Completed [facility] SARS-COV-2 COVID-19 PFIZER VACCINE 2021-02-15 00:00:00 Completed [facility] SARS-COV-2 COVID-19 PFIZER VACCINE 2021-02-15 00:00:00 Completed [facility] SARS-COV-2 COVID-19 PFIZER VACCINE 2021-02-15 00:00:00 Completed [facility] SARS-COV-2 COVID-19 PFIZER VACCINE 2021-02-15 00:00:00 Completed [facility] SARS-COV-2 COVID-19 PFIZER VACCINE 2021-02-15 00:00:00 Completed [facility] SARS-COV-2 COVID-19 PFIZER VACCINE 2021-02-15 00:00:00 Completed [facility] SARS-COV-2 COVID-19 PFIZER VACCINE 2021-02-15 00:00:00 Completed [facility] SARS-COV-2 COVID-19 PFIZER VACCINE 2021-02-15 00:00:00 Completed [facility] SARS-COV-2 COVID-19 PFIZER VACCINE 2021-02-15 00:00:00 Completed [facility] SARS-COV-2 COVID-19 PFIZER VACCINE 2021-02-15 00:00:00 Completed [facility] SARS-COV-2 COVID-19 PFIZER VACCINE 2021-02-15 00:00:00 Completed [facility] SARS-COV-2 COVID-19 PFIZER VACCINE 2021-02-15 00:00:00 Completed [facility] SARS-COV-2 COVID-19 PFIZER VACCINE 2021-02-15 00:00:00 Completed [facility] SARS-COV-2 COVID-19 PFIZER VACCINE 2021-02-15 00:00:00 Completed [facility] SARS-COV-2 COVID-19 PFIZER VACCINE 2021-02-15 00:00:00 Completed [facility] SARS-COV-2 COVID-19 PFIZER VACCINE 2021-02-15 00:00:00 Completed [facility] SARS-COV-2 COVID-19 PFIZER VACCINE 2021-02-15 00:00:00 Completed [facility] SARS-COV-2 COVID-19 PFIZER VACCINE 2021-02-15 00:00:00 Completed [facility] SARS-COV-2 COVID-19 PFIZER VACCINE 2021-02-15 00:00:00 Completed [facility] SARS-COV-2 COVID-19 PFIZER VACCINE 2021-02-15 00:00:00 Completed [facility] SARS-COV-2 COVID-19 PFIZER VACCINE 2021-02-15 00:00:00 Completed [facility] SARS-COV-2 COVID-19 PFIZER VACCINE 2021-02-15 00:00:00 Completed [facility] SARS-COV-2 COVID-19 PFIZER VACCINE 2021-02-15 00:00:00 Completed [facility] SARS-COV-2 COVID-19 PFIZER VACCINE 2021-02-15 00:00:00 Completed [facility] SARS-COV-2 COVID-19 PFIZER VACCINE 2021-02-15 00:00:00 Completed [facility] SARS-COV-2 COVID-19 PFIZER VACCINE 2021-02-15 00:00:00 Completed [facility] SARS-COV-2 COVID-19 PFIZER VACCINE 2021-02-15 00:00:00 Completed [facility] SARS-COV-2 COVID-19 PFIZER VACCINE 2021-02-15 00:00:00 Completed [facility] SARS-COV-2 COVID-19 PFIZER VACCINE 2021-02-15 00:00:00 Completed [facility] SARS-COV-2 COVID-19 PFIZER VACCINE 2021-02-15 00:00:00 Completed [facility] SARS-COV-2 COVID-19 PFIZER VACCINE 2021-02-15 00:00:00 Completed [facility] SARS-COV-2 COVID-19 PFIZER VACCINE 2021-02-15 00:00:00 Completed [facility] SARS-COV-2 COVID-19 PFIZER VACCINE 2021-02-15 00:00:00 Completed [facility] SARS-COV-2 COVID-19 PFIZER VACCINE 2021-02-15 00:00:00 Completed [facility] SARS-COV-2 COVID-19 PFIZER VACCINE 2021-02-15 00:00:00 Completed [facility] SARS-COV-2 COVID-19 PFIZER VACCINE 2021-02-15 00:00:00 Completed [facility] SARS-COV-2 COVID-19 PFIZER VACCINE 2021-02-15 00:00:00 Completed [facility] SARS-COV-2 COVID-19 PFIZER VACCINE 2021-02-15 00:00:00 Completed [facility] SARS-COV-2 COVID-19 PFIZER VACCINE 2021-02-15 00:00:00 Completed [facility] SARS-COV-2 COVID-19 PFIZER VACCINE 2021-02-15 00:00:00 Completed [facility] SARS-COV-2 COVID-19 PFIZER VACCINE 2021-02-15 00:00:00 Completed [facility] SARS-COV-2 COVID-19 PFIZER VACCINE 2021-02-15 00:00:00 Completed [facility] SARS-COV-2 COVID-19 PFIZER VACCINE 2021-02-15 00:00:00 Completed [facility] SARS-COV-2 COVID-19 PFIZER VACCINE 2021-02-15 00:00:00 Completed [facility] SARS-COV-2 COVID-19 PFIZER VACCINE 2021-02-15 00:00:00 Completed [facility] SARS-COV-2 COVID-19 PFIZER VACCINE 2021-02-15 00:00:00 Completed [facility] SARS-COV-2 COVID-19 PFIZER VACCINE 2021-02-15 00:00:00 Completed [facility] SARS-COV-2 COVID-19 PFIZER VACCINE 2021-02-15 00:00:00 Completed [facility] SARS-COV-2 COVID-19 PFIZER VACCINE 2021-02-15 00:00:00 Completed [facility] SARS-COV-2 COVID-19 PFIZER VACCINE 2021-02-15 00:00:00 Completed [facility] SARS-COV-2 COVID-19 PFIZER VACCINE 2021-02-15 00:00:00 Completed [facility] SARS-COV-2 COVID-19 PFIZER VACCINE 2021-02-15 00:00:00 Completed [facility] SARS-COV-2 COVID-19 PFIZER VACCINE 2021-02-15 00:00:00 Completed [facility] SARS-COV-2 COVID-19 PFIZER VACCINE 2021-02-15 00:00:00 Completed [facility] SARS-COV-2 COVID-19 PFIZER VACCINE 2021-02-15 00:00:00 Completed [facility] SARS-COV-2 COVID-19 PFIZER VACCINE 2021-02-15 00:00:00 Completed [facility] SARS-COV-2 COVID-19 PFIZER VACCINE 2021-02-15 00:00:00 Completed [facility] SARS-COV-2 COVID-19 PFIZER VACCINE 2021-02-15 00:00:00 Completed [facility] SARS-COV-2 COVID-19 PFIZER VACCINE 2021-02-15 00:00:00 Completed [facility] SARS-COV-2 COVID-19 PFIZER VACCINE 2021-02-15 00:00:00 Completed [facility] SARS-COV-2 COVID-19 PFIZER VACCINE Unknown Completed [facility] SARS-COV-2 COVID-19 PFIZER VACCINE Unknown Completed [facility] Pneumococcal Polysaccharide, PPSV23 (PNEUMOVAX) Unknown Completed [facility] Influenza Virus Vaccine Quad .5 mL IM 6+ MO (FLUZONE/FLULAVAL/F LUARIX) Unknown Completed [facility] Influenza Virus Vaccine Quad IM, Preserv and ABX Free 6 MO-64 YRS (FLUCELVAX) Unknown Completed [facility] Pneumococcal 20 Conjugate, PCV20 (Prevnar 20) Unknown Completed [facility] SARS-COV-2 COVID-19 PFIZER VACCINE Unknown Completed [facility] SARS-COV-2 COVID-19 PFIZER VACCINE Unknown Completed [facility] Pneumococcal Polysaccharide, PPSV23 (PNEUMOVAX) Unknown Completed [facility] Influenza Virus Vaccine Quad .5 mL IM 6+ MO (FLUZONE/FLULAVAL/F LUARIX) Unknown Completed [facility] Influenza Virus Vaccine Quad IM, Preserv and ABX Free 6 MO-64 YRS (FLUCELVAX) Unknown Completed [facility] Pneumococcal 20 Conjugate, PCV20 (Prevnar 20) Unknown Completed [facility] SARS-COV-2 COVID-19 PFIZER VACCINE Unknown Completed [facility] SARS-COV-2 COVID-19 PFIZER VACCINE Unknown Completed [facility] Pneumococcal Polysaccharide, PPSV23 (PNEUMOVAX) Unknown Completed [facility] Influenza Virus Vaccine Quad .5 mL IM 6+ MO (FLUZONE/FLULAVAL/F LUARIX) Unknown Completed [facility] Influenza Virus Vaccine Quad IM, Preserv and ABX Free 6 MO-64 YRS (FLUCELVAX) Unknown Completed [facility] Pneumococcal 20 Conjugate, PCV20 (Prevnar 20) Unknown Completed [facility] SARS-COV-2 COVID-19 PFIZER VACCINE Unknown Completed [facility] SARS-COV-2 COVID-19 PFIZER VACCINE Unknown Completed [facility] Pneumococcal Polysaccharide, PPSV23 (PNEUMOVAX) Unknown Completed [facility] Influenza Virus Vaccine Quad .5 mL IM 6+ MO (FLUZONE/FLULAVAL/F LUARIX) Unknown Completed [facility] Influenza Virus Vaccine Quad IM, Preserv and ABX Free 6 MO-64 YRS (FLUCELVAX) Unknown Completed [facility] Pneumococcal 20 Conjugate, PCV20 (Prevnar 20) Unknown Completed [facility] SARS-COV-2 COVID-19 PFIZER VACCINE Unknown Completed [facility] SARS-COV-2 COVID-19 PFIZER VACCINE Unknown Completed [facility] Pneumococcal Polysaccharide, PPSV23 (PNEUMOVAX) Unknown Completed [facility] Influenza Virus Vaccine Quad .5 mL IM 6+ MO (FLUZONE/FLULAVAL/F LUARIX) Unknown Completed [facility] Influenza Virus Vaccine Quad IM, Preserv and ABX Free 6 MO-64 YRS (FLUCELVAX) Unknown Completed [facility] Pneumococcal 20 Conjugate, PCV20 (Prevnar 20) Unknown Completed [facility] SARS-COV-2 COVID-19 PFIZER VACCINE Unknown Completed [facility] SARS-COV-2 COVID-19 PFIZER VACCINE Unknown Completed [facility] Pneumococcal Polysaccharide, PPSV23 (PNEUMOVAX) Unknown Completed [facility] Influenza Virus Vaccine Quad .5 mL IM 6+ MO (FLUZONE/FLULAVAL/F LUARIX) Unknown Completed [facility] Influenza Virus Vaccine Quad IM, Preserv and ABX Free 6 MO-64 YRS (FLUCELVAX) Unknown Completed [facility] Pneumococcal 20 Conjugate, PCV20 (Prevnar 20) Unknown Completed [facility] SARS-COV-2 COVID-19 PFIZER VACCINE Unknown Completed [facility] SARS-COV-2 COVID-19 PFIZER VACCINE Unknown Completed [facility] SARS-COV-2 COVID-19 PFIZER VACCINE Unknown Completed [facility] SARS-COV-2 COVID-19 PFIZER VACCINE Unknown Completed [facility] Pneumococcal Polysaccharide, PPSV23 (PNEUMOVAX) Unknown Completed [facility] Influenza Virus Vaccine Quad .5 mL IM 6+ MO (FLUZONE/FLULAVAL/F LUARIX) Unknown Completed [facility] Influenza Virus Vaccine Quad IM, Preserv and ABX Free 6 MO-64 YRS (FLUCELVAX) Unknown Completed [facility] Pneumococcal 20 Conjugate, PCV20 (Prevnar 20) Unknown Completed [facility] SARS-COV-2 COVID-19 PFIZER VACCINE Unknown Completed [facility] SARS-COV-2 COVID-19 PFIZER VACCINE Unknown Completed [facility] Pneumococcal Polysaccharide, PPSV23 (PNEUMOVAX) Unknown Completed [facility] Influenza Virus Vaccine Quad .5 mL IM 6+ MO (FLUZONE/FLULAVAL/F LUARIX) Unknown Completed [facility] Influenza Virus Vaccine Quad IM, Preserv and ABX Free 6 MO-64 YRS (FLUCELVAX) Unknown Completed [facility] Pneumococcal 20 Conjugate, PCV20 (Prevnar 20) Unknown Completed [facility] SARS-COV-2 COVID-19 PFIZER VACCINE Unknown Completed [facility] SARS-COV-2 COVID-19 PFIZER VACCINE Unknown Completed [facility] Pneumococcal Polysaccharide, PPSV23 (PNEUMOVAX) Unknown Completed [facility] Influenza Virus Vaccine Quad .5 mL IM 6+ MO (FLUZONE/FLULAVAL/F LUARIX) Unknown Completed [facility] Influenza Virus Vaccine Quad IM, Preserv and ABX Free 6 MO-64 YRS (FLUCELVAX) Unknown Completed [facility] Pneumococcal 20 Conjugate, PCV20 (Prevnar 20) Unknown Completed [facility] SARS-COV-2 COVID-19 PFIZER VACCINE Unknown Completed [facility] SARS-COV-2 COVID-19 PFIZER VACCINE Unknown Completed [facility] Pneumococcal Polysaccharide, PPSV23 (PNEUMOVAX) Unknown Completed [facility] Influenza Virus Vaccine Quad .5 mL IM 6+ MO (FLUZONE/FLULAVAL/F LUARIX) Unknown Completed [facility] Influenza Virus Vaccine Quad IM, Preserv and ABX Free 6 MO-64 YRS (FLUCELVAX) Unknown Completed [facility] Pneumococcal 20 Conjugate, PCV20 (Prevnar 20) Unknown Completed [facility] SARS-COV-2 COVID-19 PFIZER VACCINE Unknown Completed [facility] SARS-COV-2 COVID-19 PFIZER VACCINE Unknown Completed [facility] Pneumococcal Polysaccharide, PPSV23 (PNEUMOVAX) Unknown Completed [facility] Influenza Virus Vaccine Quad .5 mL IM 6+ MO (FLUZONE/FLULAVAL/F LUARIX) Unknown Completed [facility] Influenza Virus Vaccine Quad IM, Preserv and ABX Free 6 MO-64 YRS (FLUCELVAX) Unknown Completed [facility] Pneumococcal 20 Conjugate, PCV20 (Prevnar 20) Unknown Completed [facility] SARS-COV-2 COVID-19 PFIZER VACCINE Unknown Completed [facility] SARS-COV-2 COVID-19 PFIZER VACCINE Unknown Completed [facility] Pneumococcal Polysaccharide, PPSV23 (PNEUMOVAX) Unknown Completed [facility] Influenza Virus Vaccine Quad .5 mL IM 6+ MO (FLUZONE/FLULAVAL/F LUARIX) Unknown Completed [facility] Influenza Virus Vaccine Quad IM, Preserv and ABX Free 6 MO-64 YRS (FLUCELVAX) Unknown Completed [facility] Pneumococcal 20 Conjugate, PCV20 (Prevnar 20) Unknown Completed [facility] SARS-COV-2 COVID-19 PFIZER VACCINE Unknown Completed [facility] SARS-COV-2 COVID-19 PFIZER VACCINE Unknown Completed [facility] Pneumococcal Polysaccharide, PPSV23 (PNEUMOVAX) Unknown Completed [facility] Influenza Virus Vaccine Quad .5 mL IM 6+ MO (FLUZONE/FLULAVAL/F LUARIX) Unknown Completed [facility] Influenza Virus Vaccine Quad IM, Preserv and ABX Free 6 MO-64 YRS (FLUCELVAX) Unknown Completed [facility] Pneumococcal 20 Conjugate, PCV20 (Prevnar 20) Unknown Completed [facility] SARS-COV-2 COVID-19 PFIZER VACCINE Unknown Completed [facility] SARS-COV-2 COVID-19 PFIZER VACCINE Unknown Completed [facility] Pneumococcal Polysaccharide, PPSV23 (PNEUMOVAX) Unknown Completed [facility] Influenza Virus Vaccine Quad .5 mL IM 6+ MO (FLUZONE/FLULAVAL/F LUARIX) Unknown Completed [facility] Influenza Virus Vaccine Quad IM, Preserv and ABX Free 6 MO-64 YRS (FLUCELVAX) Unknown Completed [facility] Pneumococcal 20 Conjugate, PCV20 (Prevnar 20) Unknown Completed [facility] SARS-COV-2 COVID-19 PFIZER VACCINE Unknown Completed [facility] SARS-COV-2 COVID-19 PFIZER VACCINE Unknown Completed [facility] Pneumococcal Polysaccharide, PPSV23 (PNEUMOVAX) Unknown Completed [facility] Influenza Virus Vaccine Quad .5 mL IM 6+ MO (FLUZONE/FLULAVAL/F LUARIX) Unknown Completed [facility] Influenza Virus Vaccine Quad IM, Preserv and ABX Free 6 MO-64 YRS (FLUCELVAX) Unknown Completed [facility] Pneumococcal 20 Conjugate, PCV20 (Prevnar 20) Unknown Completed [facility] SARS-COV-2 COVID-19 PFIZER VACCINE Unknown Completed [facility] SARS-COV-2 COVID-19 PFIZER VACCINE Unknown Completed [facility] Pneumococcal Polysaccharide, PPSV23 (PNEUMOVAX) Unknown Completed [facility] Influenza Virus Vaccine Quad .5 mL IM 6+ MO (FLUZONE/FLULAVAL/F LUARIX) Unknown Completed [facility] Influenza Virus Vaccine Quad IM, Preserv and ABX Free 6 MO-64 YRS (FLUCELVAX) Unknown Completed [facility] Pneumococcal 20 Conjugate, PCV20 (Prevnar 20) Unknown Completed [facility] SARS-COV-2 COVID-19 PFIZER VACCINE Unknown Completed [facility] SARS-COV-2 COVID-19 PFIZER VACCINE Unknown Completed [facility] Pneumococcal Polysaccharide, PPSV23 (PNEUMOVAX) Unknown Completed [facility] Influenza Virus Vaccine Quad .5 mL IM 6+ MO (FLUZONE/FLULAVAL/F LUARIX) Unknown Completed [facility] Influenza Virus Vaccine Quad IM, Preserv and ABX Free 6 MO-64 YRS (FLUCELVAX) Unknown Completed [facility] Pneumococcal 20 Conjugate, PCV20 (Prevnar 20) Unknown Completed [facility] SARS-COV-2 COVID-19 PFIZER VACCINE Unknown Completed [facility] SARS-COV-2 COVID-19 PFIZER VACCINE Unknown Completed [facility] Pneumococcal Polysaccharide, PPSV23 (PNEUMOVAX) Unknown Completed [facility] Influenza Virus Vaccine Quad .5 mL IM 6+ MO (FLUZONE/FLULAVAL/F LUARIX) Unknown Completed [facility] Influenza Virus Vaccine Quad IM, Preserv and ABX Free 6 MO-64 YRS (FLUCELVAX) Unknown Completed [facility] Pneumococcal 20 Conjugate, PCV20 (Prevnar 20) Unknown Completed [facility] SARS-COV-2 COVID-19 PFIZER VACCINE Unknown Completed [facility] SARS-COV-2 COVID-19 PFIZER VACCINE Unknown Completed [facility] Pneumococcal Polysaccharide, PPSV23 (PNEUMOVAX) Unknown Completed [facility] Influenza Virus Vaccine Quad .5 mL IM 6+ MO (FLUZONE/FLULAVAL/F LUARIX) Unknown Completed [facility] Influenza Virus Vaccine Quad IM, Preserv and ABX Free 6 MO-64 YRS (FLUCELVAX) Unknown Completed [facility] Pneumococcal 20 Conjugate, PCV20 (Prevnar 20) Unknown Completed [facility] SARS-COV-2 COVID-19 PFIZER VACCINE Unknown Completed [facility] SARS-COV-2 COVID-19 PFIZER VACCINE Unknown Completed [facility] Pneumococcal Polysaccharide, PPSV23 (PNEUMOVAX) Unknown Completed [facility] Influenza Virus Vaccine Quad .5 mL IM 6+ MO (FLUZONE/FLULAVAL/F LUARIX) Unknown Completed [facility] Influenza Virus Vaccine Quad IM, Preserv and ABX Free 6 MO-64 YRS (FLUCELVAX) Unknown Completed [facility] Pneumococcal 20 Conjugate, PCV20 (Prevnar 20) Unknown Completed [facility] SARS-COV-2 COVID-19 PFIZER VACCINE Unknown Completed [facility] SARS-COV-2 COVID-19 PFIZER VACCINE Unknown Completed [facility] Pneumococcal Polysaccharide, PPSV23 (PNEUMOVAX) Unknown Completed [facility] Influenza Virus Vaccine Quad .5 mL IM 6+ MO (FLUZONE/FLULAVAL/F LUARIX) Unknown Completed [facility] Influenza Virus Vaccine Quad IM, Preserv and ABX Free 6 MO-64 YRS (FLUCELVAX) Unknown Completed [facility] Pneumococcal 20 Conjugate, PCV20 (Prevnar 20) Unknown Completed [facility] SARS-COV-2 COVID-19 PFIZER VACCINE Unknown Completed [facility] SARS-COV-2 COVID-19 PFIZER VACCINE Unknown Completed [facility] Pneumococcal Polysaccharide, PPSV23 (PNEUMOVAX) Unknown Completed [facility] Influenza Virus Vaccine Quad .5 mL IM 6+ MO (FLUZONE/FLULAVAL/F LUARIX) Unknown Completed [facility] Influenza Virus Vaccine Quad IM, Preserv and ABX Free 6 MO-64 YRS (FLUCELVAX) Unknown Completed [facility] Pneumococcal 20 Conjugate, PCV20 (Prevnar 20) Unknown Completed [facility] SARS-COV-2 COVID-19 PFIZER VACCINE Unknown Completed [facility] SARS-COV-2 COVID-19 PFIZER VACCINE Unknown Completed [facility] Pneumococcal Polysaccharide, PPSV23 (PNEUMOVAX) Unknown Completed [facility] Influenza Virus Vaccine Quad .5 mL IM 6+ MO (FLUZONE/FLULAVAL/F LUARIX) Unknown Completed [facility] Influenza Virus Vaccine Quad IM, Preserv and ABX Free 6 MO-64 YRS (FLUCELVAX) Unknown Completed [facility] Pneumococcal 20 Conjugate, PCV20 (Prevnar 20) Unknown Completed [facility] SARS-COV-2 COVID-19 PFIZER VACCINE Unknown Completed [facility] SARS-COV-2 COVID-19 PFIZER VACCINE Unknown Completed [facility] Pneumococcal Polysaccharide, PPSV23 (PNEUMOVAX) Unknown Completed [facility] Influenza Virus Vaccine Quad .5 mL IM 6+ MO (FLUZONE/FLULAVAL/F LUARIX) Unknown Completed [facility] Influenza Virus Vaccine Quad IM, Preserv and ABX Free 6 MO-64 YRS (FLUCELVAX) Unknown Completed [facility] Pneumococcal 20 Conjugate, PCV20 (Prevnar 20) Unknown Completed [facility] SARS-COV-2 COVID-19 PFIZER VACCINE Unknown Completed [facility] SARS-COV-2 COVID-19 PFIZER VACCINE Unknown Completed [facility] Pneumococcal Polysaccharide, PPSV23 (PNEUMOVAX) Unknown Completed [facility] Influenza Virus Vaccine Quad .5 mL IM 6+ MO (FLUZONE/FLULAVAL/F LUARIX) Unknown Completed [facility] Influenza Virus Vaccine Quad IM, Preserv and ABX Free 6 MO-64 YRS (FLUCELVAX) Unknown Completed [facility] Pneumococcal 20 Conjugate, PCV20 (Prevnar 20) Unknown Completed [facility] SARS-COV-2 COVID-19 PFIZER VACCINE Unknown Completed [facility] SARS-COV-2 COVID-19 PFIZER VACCINE Unknown Completed [facility] Pneumococcal Polysaccharide, PPSV23 (PNEUMOVAX) Unknown Completed [facility] Influenza Virus Vaccine Quad .5 mL IM 6+ MO (FLUZONE/FLULAVAL/F LUARIX) Unknown Completed [facility] Influenza Virus Vaccine Quad IM, Preserv and ABX Free 6 MO-64 YRS (FLUCELVAX) Unknown Completed [facility] Pneumococcal 20 Conjugate, PCV20 (Prevnar 20) Unknown Completed [facility] SARS-COV-2 COVID-19 PFIZER VACCINE Unknown Completed [facility] SARS-COV-2 COVID-19 PFIZER VACCINE Unknown Completed [facility] Pneumococcal Polysaccharide, PPSV23 (PNEUMOVAX) Unknown Completed [facility] Influenza Virus Vaccine Quad .5 mL IM 6+ MO (FLUZONE/FLULAVAL/F LUARIX) Unknown Completed [facility] Influenza Virus Vaccine Quad IM, Preserv and ABX Free 6 MO-64 YRS (FLUCELVAX) Unknown Completed [facility] Pneumococcal 20 Conjugate, PCV20 (Prevnar 20) Unknown Completed [facility] SARS-COV-2 COVID-19 PFIZER VACCINE Unknown Completed [facility] SARS-COV-2 COVID-19 PFIZER VACCINE Unknown Completed [facility] Pneumococcal Polysaccharide, PPSV23 (PNEUMOVAX) Unknown Completed [facility] Influenza Virus Vaccine Quad .5 mL IM 6+ MO (FLUZONE/FLULAVAL/F LUARIX) Unknown Completed [facility] Influenza Virus Vaccine Quad IM, Preserv and ABX Free 6 MO-64 YRS (FLUCELVAX) Unknown Completed [facility] Pneumococcal 20 Conjugate, PCV20 (Prevnar 20) Unknown Completed [facility] SARS-COV-2 COVID-19 PFIZER VACCINE Unknown Completed [facility] SARS-COV-2 COVID-19 PFIZER VACCINE Unknown Completed [facility] Pneumococcal Polysaccharide, PPSV23 (PNEUMOVAX) Unknown Completed [facility] Influenza Virus Vaccine Quad .5 mL IM 6+ MO (FLUZONE/FLULAVAL/F LUARIX) Unknown Completed [facility] Influenza Virus Vaccine Quad IM, Preserv and ABX Free 6 MO-64 YRS (FLUCELVAX) Unknown Completed [facility] Pneumococcal 20 Conjugate, PCV20 (Prevnar 20) Unknown Completed [facility] SARS-COV-2 COVID-19 PFIZER VACCINE Unknown Completed [facility] SARS-COV-2 COVID-19 PFIZER VACCINE Unknown Completed [facility] Pneumococcal Polysaccharide, PPSV23 (PNEUMOVAX) Unknown Completed [facility] Influenza Virus Vaccine Quad .5 mL IM 6+ MO (FLUZONE/FLULAVAL/F LUARIX) Unknown Completed [facility] Influenza Virus Vaccine Quad IM, Preserv and ABX Free 6 MO-64 YRS (FLUCELVAX) Unknown Completed [facility] Pneumococcal 20 Conjugate, PCV20 (Prevnar 20) Unknown Completed [facility] SARS-COV-2 COVID-19 PFIZER VACCINE Unknown Completed [facility] SARS-COV-2 COVID-19 PFIZER VACCINE Unknown Completed [facility] Pneumococcal Polysaccharide, PPSV23 (PNEUMOVAX) Unknown Completed [facility] Influenza Virus Vaccine Quad .5 mL IM 6+ MO (FLUZONE/FLULAVAL/F LUARIX) Unknown Completed [facility] Influenza Virus Vaccine Quad IM, Preserv and ABX Free 6 MO-64 YRS (FLUCELVAX) Unknown Completed [facility] Pneumococcal 20 Conjugate, PCV20 (Prevnar 20) Unknown Completed [facility] SARS-COV-2 COVID-19 PFIZER VACCINE Unknown Completed [facility] SARS-COV-2 COVID-19 PFIZER VACCINE Unknown Completed [facility] Pneumococcal Polysaccharide, PPSV23 (PNEUMOVAX) Unknown Completed [facility] Influenza Virus Vaccine Quad .5 mL IM 6+ MO (FLUZONE/FLULAVAL/F LUARIX) Unknown Completed [facility] Influenza Virus Vaccine Quad IM, Preserv and ABX Free 6 MO-64 YRS (FLUCELVAX) Unknown Completed [facility] Pneumococcal 20 Conjugate, PCV20 (Prevnar 20) Unknown Completed [facility] SARS-COV-2 COVID-19 PFIZER VACCINE Unknown Completed [facility] SARS-COV-2 COVID-19 PFIZER VACCINE Unknown Completed [facility] Pneumococcal Polysaccharide, PPSV23 (PNEUMOVAX) Unknown Completed [facility] Influenza Virus Vaccine Quad .5 mL IM 6+ MO (FLUZONE/FLULAVAL/F LUARIX) Unknown Completed [facility] Influenza Virus Vaccine Quad IM, Preserv and ABX Free 6 MO-64 YRS (FLUCELVAX) Unknown Completed [facility] Pneumococcal 20 Conjugate, PCV20 (Prevnar 20) Unknown Completed [facility] SARS-COV-2 COVID-19 PFIZER VACCINE Unknown Completed [facility] SARS-COV-2 COVID-19 PFIZER VACCINE Unknown Completed [facility] Pneumococcal Polysaccharide, PPSV23 (PNEUMOVAX) Unknown Completed [facility] Influenza Virus Vaccine Quad .5 mL IM 6+ MO (FLUZONE/FLULAVAL/F LUARIX) Unknown Completed [facility] Influenza Virus Vaccine Quad IM, Preserv and ABX Free 6 MO-64 YRS (FLUCELVAX) Unknown Completed [facility] Pneumococcal 20 Conjugate, PCV20 (Prevnar 20) Unknown Completed [facility] SARS-COV-2 COVID-19 PFIZER VACCINE Unknown Completed [facility] SARS-COV-2 COVID-19 PFIZER VACCINE Unknown Completed [facility] Pneumococcal Polysaccharide, PPSV23 (PNEUMOVAX) Unknown Completed [facility] Influenza Virus Vaccine Quad .5 mL IM 6+ MO (FLUZONE/FLULAVAL/F LUARIX) Unknown Completed [facility] Influenza Virus Vaccine Quad IM, Preserv and ABX Free 6 MO-64 YRS (FLUCELVAX) Unknown Completed [facility] Pneumococcal 20 Conjugate, PCV20 (Prevnar 20) Unknown Completed [facility] SARS-COV-2 COVID-19 PFIZER VACCINE Unknown Completed [facility] SARS-COV-2 COVID-19 PFIZER VACCINE Unknown Completed [facility] Pneumococcal Polysaccharide, PPSV23 (PNEUMOVAX) Unknown Completed [facility] Influenza Virus Vaccine Quad .5 mL IM 6+ MO (FLUZONE/FLULAVAL/F LUARIX) Unknown Completed [facility] Influenza Virus Vaccine Quad IM, Preserv and ABX Free 6 MO-64 YRS (FLUCELVAX) Unknown Completed [facility] Pneumococcal 20 Conjugate, PCV20 (Prevnar 20) Unknown Completed [facility] SARS-COV-2 COVID-19 PFIZER VACCINE Unknown Completed [facility] SARS-COV-2 COVID-19 PFIZER VACCINE Unknown Completed [facility] Pneumococcal Polysaccharide, PPSV23 (PNEUMOVAX) Unknown Completed [facility] Influenza Virus Vaccine Quad .5 mL IM 6+ MO (FLUZONE/FLULAVAL/F LUARIX) Unknown Completed [facility] Influenza Virus Vaccine Quad IM, Preserv and ABX Free 6 MO-64 YRS (FLUCELVAX) Unknown Completed [facility] Pneumococcal 20 Conjugate, PCV20 (Prevnar 20) Unknown Completed [facility] SARS-COV-2 COVID-19 PFIZER VACCINE Unknown Completed [facility] SARS-COV-2 COVID-19 PFIZER VACCINE Unknown Completed [facility] Pneumococcal Polysaccharide, PPSV23 (PNEUMOVAX) Unknown Completed [facility] Influenza Virus Vaccine Quad .5 mL IM 6+ MO (FLUZONE/FLULAVAL/F LUARIX) Unknown Completed [facility] Influenza Virus Vaccine Quad IM, Preserv and ABX Free 6 MO-64 YRS (FLUCELVAX) Unknown Completed [facility] Pneumococcal 20 Conjugate, PCV20 (Prevnar 20) Unknown Completed [facility] SARS-COV-2 COVID-19 PFIZER VACCINE Unknown Completed [facility] SARS-COV-2 COVID-19 PFIZER VACCINE Unknown Completed [facility] Pneumococcal Polysaccharide, PPSV23 (PNEUMOVAX) Unknown Completed [facility] Influenza Virus Vaccine Quad .5 mL IM 6+ MO (FLUZONE/FLULAVAL/F LUARIX) Unknown Completed [facility] Influenza Virus Vaccine Quad IM, Preserv and ABX Free 6 MO-64 YRS (FLUCELVAX) Unknown Completed [facility] Pneumococcal 20 Conjugate, PCV20 (Prevnar 20) Unknown Completed [facility] SARS-COV-2 COVID-19 PFIZER VACCINE Unknown Completed [facility] SARS-COV-2 COVID-19 PFIZER VACCINE Unknown Completed [facility] Pneumococcal Polysaccharide, PPSV23 (PNEUMOVAX) Unknown Completed [facility] Influenza Virus Vaccine Quad .5 mL IM 6+ MO (FLUZONE/FLULAVAL/F LUARIX) Unknown Completed [facility] Influenza Virus Vaccine Quad IM, Preserv and ABX Free 6 MO-64 YRS (FLUCELVAX) Unknown Completed [facility] Pneumococcal 20 Conjugate, PCV20 (Prevnar 20) Unknown Completed [facility] SARS-COV-2 COVID-19 PFIZER VACCINE Unknown Completed [facility] SARS-COV-2 COVID-19 PFIZER VACCINE Unknown Completed [facility] Pneumococcal Polysaccharide, PPSV23 (PNEUMOVAX) Unknown Completed [facility] Influenza Virus Vaccine Quad .5 mL IM 6+ MO (FLUZONE/FLULAVAL/F LUARIX) Unknown Completed [facility] Influenza Virus Vaccine Quad IM, Preserv and ABX Free 6 MO-64 YRS (FLUCELVAX) Unknown Completed [facility] Pneumococcal 20 Conjugate, PCV20 (Prevnar 20) Unknown Completed [facility] SARS-COV-2 COVID-19 PFIZER VACCINE Unknown Completed [facility] SARS-COV-2 COVID-19 PFIZER VACCINE Unknown Completed [facility] Pneumococcal Polysaccharide, PPSV23 (PNEUMOVAX) Unknown Completed [facility] Influenza Virus Vaccine Quad .5 mL IM 6+ MO (FLUZONE/FLULAVAL/F LUARIX) Unknown Completed [facility] Influenza Virus Vaccine Quad IM, Preserv and ABX Free 6 MO-64 YRS (FLUCELVAX) Unknown Completed [facility] Pneumococcal 20 Conjugate, PCV20 (Prevnar 20) Unknown Completed [facility] SARS-COV-2 COVID-19 PFIZER VACCINE Unknown Completed [facility] SARS-COV-2 COVID-19 PFIZER VACCINE Unknown Completed [facility] Pneumococcal Polysaccharide, PPSV23 (PNEUMOVAX) Unknown Completed [facility] Influenza Virus Vaccine Quad .5 mL IM 6+ MO (FLUZONE/FLULAVAL/F LUARIX) Unknown Completed [facility] Influenza Virus Vaccine Quad IM, Preserv and ABX Free 6 MO-64 YRS (FLUCELVAX) Unknown Completed [facility] Pneumococcal 20 Conjugate, PCV20 (Prevnar 20) Unknown Completed [facility] SARS-COV-2 COVID-19 PFIZER VACCINE Unknown Completed [facility] SARS-COV-2 COVID-19 PFIZER VACCINE Unknown Completed [facility] Pneumococcal Polysaccharide, PPSV23 (PNEUMOVAX) Unknown Completed [facility] Influenza Virus Vaccine Quad .5 mL IM 6+ MO (FLUZONE/FLULAVAL/F LUARIX) Unknown Completed [facility] Influenza Virus Vaccine Quad IM, Preserv and ABX Free 6 MO-64 YRS (FLUCELVAX) Unknown Completed [facility] Pneumococcal 20 Conjugate, PCV20 (Prevnar 20) Unknown Completed [facility] SARS-COV-2 COVID-19 PFIZER VACCINE Unknown Completed [facility] SARS-COV-2 COVID-19 PFIZER VACCINE Unknown Completed [facility] Pneumococcal Polysaccharide, PPSV23 (PNEUMOVAX) Unknown Completed [facility] Influenza Virus Vaccine Quad .5 mL IM 6+ MO (FLUZONE/FLULAVAL/F LUARIX) Unknown Completed [facility] Influenza Virus Vaccine Quad IM, Preserv and ABX Free 6 MO-64 YRS (FLUCELVAX) Unknown Completed [facility] Pneumococcal 20 Conjugate, PCV20 (Prevnar 20) Unknown Completed [facility] Vital Signs Vital Name Observation Time Observation Value Comments S ource Systolic blood pressure 2023-10-23 19:15:00 124 mm[Hg] [facility] Diastolic blood pressure 2023-10-23 19:15:00 69 mm[Hg] [facility] Heart rate 2023-10-23 19:15:00 98 /min [facility] Body temperature 2023-10-23 19:15:00 36.61 Leigh [facility] Body height 2023-10-23 19:15:00 144.8 cm [facility] Body weight 2023-10-23 19:15:00 81.647 kg verbal given [facility] BMI 2023-10-23 19:15:00 38.95 kg/m2 [facility] Oxygen saturation in Arterial blood by Pulse oximetry 2023-10-23 19:15:00 100 /min [facility] Systolic blood pressure 2023-03-27 16:50:00 121 mm[Hg] [facility] Diastolic blood pressure 2023-03-27 16:50:00 76 mm[Hg] [facility] Heart rate 2023-03-27 16:50:00 101 /min [facility] Body height 2023-03-27 16:50:00 144.8 cm [facility] Body weight 2023-03-27 16:50:00 81.647 kg [facility] BMI 2023-03-27 16:50:00 38.95 kg/m2 [facility] Oxygen saturation in Arterial blood by Pulse oximetry 2023-03-27 16:50:00 97 /min [facility] Systolic blood pressure 2023-03-26 20:25:00 123 mm[Hg] [facility] Diastolic blood pressure 2023-03-26 20:25:00 73 mm[Hg] [facility] Heart rate 2023-03-26 20:25:00 93 /min [facility] Body temperature 2023-03-26 20:25:00 36.67 Leigh [facility] Respiratory rate 2023-03-26 20:25:00 18 /min [facility] Oxygen saturation in Arterial blood by Pulse oximetry 2023-03-26 20:25:00 98 /min [facility] Body weight 2023-03-26 08:12:00 90.992 kg [facility] BMI 2023-03-26 08:12:00 43.41 kg/m2 [facility] Body height 2023-03-19 02:44:00 144.8 cm [facility] Systolic blood pressure 2023-03-20 17:45:00 132 mm[Hg] [facility] Diastolic blood pressure 2023-03-20 17:45:00 97 mm[Hg] [facility] Heart rate 2023-03-20 17:45:00 104 /min [facility] Respiratory rate 2023-03-20 17:45:00 19 /min [facility] Oxygen saturation in Arterial blood by Pulse oximetry 2023-03-20 17:45:00 99 /min [facility] Body temperature 2023-03-20 17:39:00 36.11 Leigh [facility] Body weight 2023-03-20 08:41:00 81.92 kg [facility] BMI 2023-03-20 08:41:00 38.87 kg/m2 [facility] Body height 2023-03-19 02:44:00 144.8 cm [facility] Body height 2023-02-03 14:35:00 144.8 cm [facility] Body weight 2023-02-03 14:35:00 82.146 kg [facility] BMI 2023-02-03 14:35:00 39.18 kg/m2 [facility] Body height 2023-01-02 19:10:00 144.8 cm [facility] Body weight 2023-01-02 19:10:00 82.146 kg [facility] BMI 2023-01-02 19:10:00 39.18 kg/m2 [facility] Systolic blood pressure 2022-12-25 17:07:00 141 mm[Hg] [facility] Diastolic blood pressure 2022-12-25 17:07:00 79 mm[Hg] [facility] Heart rate 2022-12-25 17:07:00 94 /min [facility] Body temperature 2022-12-25 17:07:00 36.72 Leigh [facility] Respiratory rate 2022-12-25 17:07:00 18 /min [facility] Oxygen saturation in Arterial blood by Pulse oximetry 2022-12-25 17:07:00 95 /min [facility] Body weight 2022-12-24 09:04:00 82.146 kg [facility] BMI 2022-12-24 09:04:00 39.19 kg/m2 [facility] Body height 2022-12-24 03:00:00 144.8 cm [facility] Systolic blood pressure 2022-12-19 15:52:00 137 mm[Hg] [facility] Diastolic blood pressure 2022-12-19 15:52:00 79 mm[Hg] [facility] Heart rate 2022-12-19 15:51:00 82 /min [facility] Body temperature 2022-12-19 15:51:00 36.89 Leigh [facility] Respiratory rate 2022-12-19 15:51:00 18 /min [facility] Body height 2022-12-19 15:51:00 144.8 cm [facility] Oxygen saturation in Arterial blood by Pulse oximetry 2022-12-19 15:51:00 98 /min [facility] Respiratory rate 2022-12-10 22:45:00 18 /min [facility] Systolic blood pressure 2022-12-10 22:15:00 162 mm[Hg] [facility] Diastolic blood pressure 2022-12-10 22:15:00 80 mm[Hg] [facility] Heart rate 2022-12-10 22:15:00 87 /min [facility] Oxygen saturation in Arterial blood by Pulse oximetry 2022-12-10 22:15:00 99 /min [facility] Body temperature 2022-12-10 19:23:00 36.61 Leigh [facility] Body height 2022-12-10 19:23:00 144.8 cm [facility] Body weight 2022-12-10 19:23:00 81.647 kg [facility] BMI 2022-12-10 19:23:00 38.95 kg/m2 [facility] Systolic blood pressure 2022-12-05 03:34:00 159 mm[Hg] [facility] Diastolic blood pressure 2022-12-05 03:34:00 66 mm[Hg] [facility] Heart rate 2022-12-05 03:34:00 84 /min [facility] Body temperature 2022-12-05 03:34:00 37.22 Leigh [facility] Respiratory rate 2022-12-05 03:34:00 20 /min [facility] Body height 2022-12-05 03:34:00 144.8 cm [facility] Body weight 2022-12-05 03:34:00 81.647 kg [facility] BMI 2022-12-05 03:34:00 38.95 kg/m2 [facility] Oxygen saturation in Arterial blood by Pulse oximetry 2022-12-05 03:34:00 99 /min [facility] Systolic blood pressure 2022-11-18 19:46:00 151 mm[Hg] [facility] Diastolic blood pressure 2022-11-18 19:46:00 83 mm[Hg] [facility] Heart rate 2022-11-18 19:46:00 92 /min [facility] Body temperature 2022-11-18 19:46:00 37.11 Leigh [facility] Respiratory rate 2022-11-18 19:46:00 16 /min [facility] Body weight 2022-11-18 19:46:00 82.555 kg [facility] BMI 2022-11-18 19:46:00 39.38 kg/m2 [facility] Oxygen saturation in Arterial blood by Pulse oximetry 2022-11-18 19:46:00 99 /min [facility] Systolic blood pressure 2022-09-18 21:06:00 131 mm[Hg] [facility] Diastolic blood pressure 2022-09-18 21:06:00 80 mm[Hg] [facility] Heart rate 2022-09-18 21:06:00 98 /min [facility] Body temperature 2022-09-18 21:06:00 36.39 Leigh [facility] Respiratory rate 2022-09-18 21:06:00 18 /min [facility] Body height 2022-09-18 21:06:00 144.8 cm [facility] Body weight 2022-09-18 21:06:00 87.091 kg [facility] BMI 2022-09-18 21:06:00 41.55 kg/m2 [facility] Oxygen saturation in Arterial blood by Pulse oximetry 2022-09-18 21:06:00 98 /min [facility] Systolic blood pressure 2022-07-10 20:52:00 147 mm[Hg] [facility] Diastolic blood pressure 2022-07-10 20:52:00 82 mm[Hg] [facility] Heart rate 2022-07-10 20:51:00 110 /min [facility] Body temperature 2022-07-10 20:51:00 36.72 Leigh [facility] Respiratory rate 2022-07-10 20:51:00 17 /min [facility] Body height 2022-07-10 20:51:00 144.8 cm [facility] Body weight 2022-07-10 20:51:00 91.173 kg [facility] BMI 2022-07-10 20:51:00 43.50 kg/m2 [facility] Oxygen saturation in Arterial blood by Pulse oximetry 2022-07-10 20:51:00 96 /min [facility] Systolic blood pressure 2022-05-02 19:33:00 166 mm[Hg] [facility] Diastolic blood pressure 2022-05-02 19:33:00 84 mm[Hg] [facility] Heart rate 2022-05-02 19:33:00 99 /min [facility] Respiratory rate 2022-05-02 19:33:00 18 /min [facility] Oxygen saturation in Arterial blood by Pulse oximetry 2022-05-02 19:33:00 99 /min [facility] Body temperature 2022-05-02 19:31:00 36.39 Leigh [facility] Body weight 2022-05-02 19:31:00 92.534 kg per pt [facility] BMI 2022-05-02 19:31:00 44.15 kg/m2 [facility] Systolic blood pressure 2021-11-08 19:49:00 121 mm[Hg] [facility] Diastolic blood pressure 2021-11-08 19:49:00 74 mm[Hg] [facility] Heart rate 2021-11-08 19:49:00 105 /min [facility] Respiratory rate 2021-11-08 19:49:00 18 /min [facility] Body height 2021-11-08 19:49:00 144.8 cm [facility] Body weight 2021-11-08 19:49:00 100.835 kg [facility] BMI 2021-11-08 19:49:00 48.11 kg/m2 [facility] Oxygen saturation in Arterial blood by Pulse oximetry 2021-11-08 19:49:00 94 /min [facility] Systolic blood pressure 2021-11-08 19:49:00 121 mm[Hg] [facility] Diastolic blood pressure 2021-11-08 19:49:00 74 mm[Hg] [facility] Heart rate 2021-11-08 19:49:00 105 /min [facility] Respiratory rate 2021-11-08 19:49:00 18 /min [facility] Body height 2021-11-08 19:49:00 144.8 cm [facility] Body weight 2021-11-08 19:49:00 100.835 kg [facility] BMI 2021-11-08 19:49:00 48.11 kg/m2 [facility] Oxygen saturation in Arterial blood by Pulse oximetry 2021-11-08 19:49:00 94 /min [facility] Procedures Procedure Date / Time Performed Performing Clinician Source DME/SUPPLY JUSTIFICATION 2023-09-29 05:01:00 Doc tor Unassigned, [place] [facility] DME/SUPPLY JUSTIFICATION 2023-09-16 06:01:00 Doc tor Unassigned, [place] [facility] INSURANCE CORRESPONDENCE 2023-07-01 06:01:00 Doc tor Unassigned, [place] [facility] DME/SUPPLY JUSTIFICATION 2023-06-09 06:01:00 Doc tor Unassigned, [place] [facility] DME/SUPPLY JUSTIFICATION 2023-04-21 05:01:00 Doc tor Unassigned, [place] [facility] PHYSICIAN CERTIFICATION STATEMENT 2023-04-08 05:01:00 Doctor Unassigned, [place] [facility] POCT GLUCOSE (AUTOMATED) 2023-03-26 16:45:00 Mehnaz Jones [facility] POCT GLUCOSE (AUTOMATED) 2023-03-26 12:46:00 Mehnaz Jones [facility] POCT GLUCOSE (AUTOMATED) 2023-03-26 11:13:00 Mehnaz Jones [facility] POCT GLUCOSE (AUTOMATED) 2023-03-26 08:13:00 Mehnaz Jones [facility] POCT GLUCOSE (AUTOMATED) 2023-03-26 04:50:00 Mehnaz Jones [facility] POCT GLUCOSE (AUTOMATED) 2023-03-26 01:18:00 Danny, D [facility] POCT GLUCOSE (AUTOMATED) 2023-03-25 21:43:00 Mehnaz Jones [facility] POCT GLUCOSE (AUTOMATED) 2023-03-25 16:44:00 Mehnaz Jones [facility] XR KUB 2023-03-25 14:55:00 Reba Mccoy [facility] POCT GLUCOSE (AUTOMATED) 2023-03-25 12:50:00 Mehnaz Jones [facility] POCT GLUCOSE (AUTOMATED) 2023-03-25 01:04:00 Mehnaz Jones [facility] POCT GLUCOSE (AUTOMATED) 2023-03-24 21:38:00 Mehnaz Jones [facility] POCT GLUCOSE (AUTOMATED) 2023-03-24 16:49:00 Mehnaz Jones [facility] POCT GLUCOSE (AUTOMATED) 2023-03-24 12:39:00 Mehnaz Jones [facility] POCT GLUCOSE (AUTOMATED) 2023-03-24 01:20:00 Mehnaz Jones [facility] POCT GLUCOSE (AUTOMATED) 2023-03-23 21:48:00 Mehnaz Jones [facility] POCT GLUCOSE (AUTOMATED) 2023-03-23 16:41:00 Mehnaz Jones [facility] POCT GLUCOSE (AUTOMATED) 2023-03-23 12:41:00 Mehnaz Jones [facility] BASIC METABOLIC PANEL (NA, K, CL, CO2, GLUCOSE, BUN, CREATININE, CA) 2023-03-23 08:53:00 Erma Wright [facility] CBC WITH DIFF 2023-03-23 08:53:00 Erma Wright [facility] POCT GLUCOSE (AUTOMATED) 2023-03-23 02:05:00 Mehnaz Jones [facility] POCT GLUCOSE (AUTOMATED) 2023-03-22 21:57:00 Mehnaz Jones [facility] POCT GLUCOSE (AUTOMATED) 2023-03-22 16:33:00 Mehnaz Jones [facility] POCT GLUCOSE (AUTOMATED) 2023-03-22 13:20:00 Mehnaz Jones [facility] BASIC METABOLIC PANEL (NA, K, CL, CO2, GLUCOSE, BUN, CREATININE, CA) 2023-03-22 09:33:00 Ariadna Mccoy [facility] CBC WITH DIFF 2023-03-22 09:33:00 Ariadna Mccoy [facility] POCT GLUCOSE (AUTOMATED) 2023-03-22 [facility]:05[facility] 2023-03-22 01:05:00 Mehnaz Jones [facility] CBC WITH DIFF 2023-03-21 22:16:00 Foreign [facility] CBC WITH DIFF 2023-03-21 22:16:00 Foreign [facility] POCT GLUCOSE (AUTOMATED) 2023-03-21 21:59[facility] 2023-03-21 21:59:00 Mehnaz Jones [facility] POCT GLUCOSE (AUTOMATED) 2023-03-21 16:42:00 Mehnaz Jones [facility] POCT GLUCOSE (AUTOMATED) 2023-03-21 16:42:00 Mehnaz Jones [facility] POCT GLUCOSE (AUTOMATED) 2023-03-21 12:53:00 Mehnaz Jones [facility] POCT GLUCOSE (AUTOMATED) 2023-03-21 12:53[facility] 2023-03-21 01:21:00 [facility] POCT GLUCOSE (AUTOMATED) 2023-03-21 01:21:00 Mehnaz Jones [facility] VANCOMYCIN TROUGH 2023-03-21 00:36:00 Rosi Jones [facility] VANCOMYCIN TROUGH 2023-03-21 00:36:00 Rosi Jones [facility] POCT GLUCOSE (AUTOMATED) 2023-03-20 21:44[facility] 2023-03-20 21:44:00 Mehnaz Jones [facility] POCT GLUCOSE (AUTOMATED) 2023-03-20 18:28:00 Mehnaz Jones [facility] POCT GLUCOSE (AUTOMATED) 2023-03-20 18:28:00 Mehnaz Jones [facility] INCISION AND DRAINAGE LOWER EXTREMITY 2023-03-20 16:52:00 Foreign Wilkinson [facility] INCISION AND DRAINAGE LOWER EXTREMITY 2023-03-20 16:52:00 Foreign Wilkinson [facility] POCT GLUCOSE (AUTOMATED) 2023-03-20 13:05:00 Mehnaz Jones [facility] POCT GLUCOSE (AUTOMATED) 2023-03-20 13:05:00 Mehnaz Jones [facility] BASIC METABOLIC PANEL (NA, K, CL, CO2, GLUCOSE, BUN, CREATININE, CA) 2023-03-20 09:40:00 Erma Wright [facility] CBC WITH DIFF 2023-03-20 09:40:00 Erma Wright Cristine [facility] BASIC METABOLIC PANEL (NA, K, CL, CO2, GLUCOSE, BUN, CREATININE, CA) 2023-03-20 09:40:00 Erma Wright Cristine [facility] CBC WITH DIFF 2023-03-20 09:40:00 Erma Wright [facility] DME/SUPPLY JUSTIFICATION 2023-03-20 05:01:00 Doc tor Unassigned, [place] [facility] POCT GLUCOSE (AUTOMATED) 2023-03-20 01:24:00 Mehnaz Jones [facility] POCT GLUCOSE (AUTOMATED) 2023-03-20 01:24:00 Mehnaz Jones [facility] POCT GLUCOSE (AUTOMATED) 2023-03-19 21:48:00 [facility] POCT GLUCOSE (AUTOMATED) 2023-03-19 21:48:00 Mehnaz Jones [facility] MR FOOT LEFT WO CONTRAST 2023-03-19 20:21:00 Denisha Wilkinson [facility] MR FOOT LEFT WO CONTRAST 2023-03-19 20:21:00 Denisha Wilkinson [facility] URINALYSIS 2023-03-19 20:05:00 [facility] ASPIRATE OR ABSCESS CULTURE(AEROBIC/ANAEROBIC ) 2023-03-19 20:05:00 Foreign Wilkinson [facility] WOUND/ASPIRATE OR ABSCESS CULTURE 2023-03-19 20:05:00 Foreign Wilkinson [facility] URINALYSIS 2023-03-19 20:05:00 Demarco [facility] ASPIRATE OR ABSCESS CULTURE(AEROBIC/ANAEROBIC ) 2023-03-19 20:05:00 Foreign Wilkinson [facility] WOUND/ASPIRATE OR ABSCESS CULTURE 2023-03-19 20:05:00 Foreign Wilkinson [facility] DUPLEX ARTERIAL LEG LEFT - BY VASCULAR LAB 2023-03-19 19:00:00 Foreign Wilkinson [facility] DUPLEX ARTERIAL LEG LEFT - BY VASCULAR LAB 2023-03-19 19:00:00 Foreign Wilkinson [facility] POCT GLUCOSE (AUTOMATED) 2023-03-19 16:36:00 Mehnaz Jones [facility] POCT GLUCOSE (AUTOMATED) 2023-03-19 16:36:00 Mehnaz Jones [facility] BASIC METABOLIC PANEL (NA, K, CL, CO2, GLUCOSE, BUN, CREATININE, CA) 2023-03-19 15:23:00 Demarco [facility] CBC WITH DIFF 2023-03-19 15:23:00 Demarco [facility] BASIC METABOLIC PANEL (NA, K, CL, CO2, GLUCOSE, BUN, CREATININE, CA) 2023-03-19 15:23:00 Demarco [facility] CBC WITH DIFF 2023-03-19 15:23:00 Demarco [facility] POCT GLUCOSE (AUTOMATED) 2023-03-19 12:33:00 Mehnaz Jones [facility] POCT GLUCOSE (AUTOMATED) 2023-03-19 12:33:00 Mehnaz Jones [facility] MRSA / MSSA SCREEN BY MABLE ERIC 2023-03-19 08:23:00 Rosi Jones [facility] MRSA / MSSA SCREEN BY PCRMABLE 2023-03-19 08:23:00 Rosi Jones [facility] POCT GLUCOSE (AUTOMATED) 2023-03-19 03:27:00 Mehnaz Jones [facility] POCT GLUCOSE (AUTOMATED) 2023-03-19 03:27:00 Mehnaz Jones [facility] XR FOOT 3+ VW LEFT 2023-03-18 23:31:21 Sarah Goodman [facility] XR FOOT 3+ VW LEFT 2023-03-18 23:31:21 Sarah Goodman [facility] BLOOD CULTURE SCREEN 2023-03-18 23:18:00 Sarah Goodman [facility] COMP. METABOLIC PANEL (67483) 2023-03-18 23:18:00 Sarah Goodman [facility] CBC WITH DIFF 2023-03-18 23:18:00 Sarah [facility] GLYCOSYLATED HEMOGLOBIN (A1C) 2023-03-18 23:18:00 Rosi Jones [facility] LACTIC ACID WHOLE BLOOD 2023-03-18 23:18:00 Sarah Goodman [facility] BLOOD CULTURE SCREEN 2023-03-18 23:18:00 Sarah Goodman [facility] COMP. METABOLIC PANEL ([id number]) 2023-03-18 23:18:00 Sarah Goodman [facility] CBC WITH DIFF 2023-03-18 23:18:00 Sarah Goodman [facility] GLYCOSYLATED HEMOGLOBIN (A1C) 2023-03-18 23:18:00 Rosi Jones [facility] LACTIC ACID WHOLE BLOOD 2023-03-18 23:18:00 Sarah Goodman [facility] CONSENT/REFUSAL FOR DIAGNOSIS AND TREATMENT 2023-03-18 21:51:06 Doctor Unassigned, [place] [facility] CONSENT/REFUSAL FOR DIAGNOSIS AND TREATMENT 2023-03-18 21:51:06 Doctor Unassigned, [place] [facility] POCT GLUCOSE (AUTOMATED) 2022-12-25 17:10:00 Samantha Reynolds [facility] POCT GLUCOSE (AUTOMATED) 2022-12-25 13:41:00 Samantha Reynolds [facility] POCT GLUCOSE (AUTOMATED) 2022-12-25 02:04:00 Samantha Reynolds [facility] POCT GLUCOSE (AUTOMATED) 2022-12-24 22:12:00 Samantha Reynolds [facility] POCT GLUCOSE (AUTOMATED) 2022-12-24 17:58:00 Mehnaz Luque [facility] MR STROKE BRAIN WO CONTRAST 2022-12-24 15:50:14 [facility] TRANSTHORACIC ECHO (TTE) COMPLETE W/ CONTRAST 2022-12-24 14:00:00 [facility] POCT GLUCOSE (AUTOMATED) 2022-12-24 13:06:[address] [facility] BASIC METABOLIC PANEL (NA, K, CL, CO2, GLUCOSE, BUN, CREATININE, CA) 2022-12-24 10:25:00 [facility] LIPID PANEL (09829)(TOTAL CHOLESTEROL, TRIGLYCERIDES, HDL) 2022-12-24 10:25:00 [facility] POCT GLUCOSE (AUTOMATED) 2022-12-24 04:13:[address] [facility] ROUTINE & RHYTHM STRIP 2022-12-24 02:19:50 [facility] POCT GLUCOSE (AUTOMATED) 2022-12-24 02:08:00 Mehnaz Luque [facility] POCT GLUCOSE (AUTOMATED) 2022-12-24 00:19:00 Mehnaz Luque [facility] POCT GLUCOSE (AUTOMATED) 2022-12-23 23:37:00 Mehnaz Luque [facility] URINE CULTURE 2022-12-23 22:40:00 Jose Luque [facility] URINALYSIS 2022-12-23 21:50:00 Jose Luque [facility] URINE DRUG (IMMUNOASSAY) - COMPREHENSIVE DRUG SCREEN W/O REFLEX 2022-12-23 21:50:00 Jose Luque [facility] CT HEAD WO CONTRAST 2022-12-23 21:38:13 Percy Luque [facility] XR CHEST 1 VW 2022-12-23 21:34:12 Jose Luque [facility] TROPONIN I 2022-12-23 21:23:00 Jose Luque [facility] COMP. METABOLIC PANEL ([id number]) 2022-12-23 21:23:00 Jose Luque [facility] ETHANOL 2022-12-23 21:23:00 [facility] CBC WITH DIFF 2022-12-23 21:23:00 Jose Luque [facility] GLYCOSYLATED HEMOGLOBIN (A1C) 2022-12-23 21:23:00 Adolfo Cedeño [facility] PROTHROMBIN TIME / INR 2022-12-23 21:23:00 Adalid Luque [facility] ACTIVATED PARTIAL THRMPLAS ROD 2022-12-23 21:23:00 Jose Luque [facility] N-TERMINAL PRO-BNP 2022-12-23 21:23:00 Jose Luque [facility] HB ECG ROUTINE & RHYTHM STRIP 2022-12-23 21:19:58 Jose Luque [facility] CONSENT/REFUSAL FOR DIAGNOSIS AND TREATMENT 2022-12-23 20:56:49 Doctor Unassigned, [place] [facility] HOSPITAL ADMISSION 2022-12-23 05:01:00 Doctor Un assigned, [place] [facility] PNEUMOCOCCAL 20 CONJUGATE (PREVNAR 20) VACCINE 2022-12-19 16:36:06 Kwadwo Patel [facility] EKG-12 LEAD 2022-12-10 23:13:08 Ayo Joyner [facility] POCT GLUCOSE (AUTOMATED) 2022-12-10 23:03:00 Arash Joyner [facility] POCT GLUCOSE (AUTOMATED) 2022-12-10 22:27:00 Arash Joyner [facility] POCT GLUCOSE (AUTOMATED) 2022-12-10 21:25:00 Arash Joyner [facility] POCT GLUCOSE (AUTOMATED) 2022-12-10 20:53:00 Arash Joyner [facility] CT HEAD WO CONTRAST 2022-12-10 20:04:56 Ayo Joyner [facility] URINE DRUG (IMMUNOASSAY) - COMPREHENSIVE DRUG SCREEN 2022-12-10 19:54:00 Ayo Joyner [facility] URINALYSIS 2022-12-10 19:54:00 Ayo Joyner [facility] COMP. METABOLIC PANEL ([id number]) 2022-12-10 19:40:00 Ayo Joyner [facility] ETHANOL 2022-12-10 19:40:00 Ayo Joyner [facility] CBC WITH DIFF 2022-12-10 19:40:00 Ayo Joyner [facility] PROTHROMBIN TIME / INR 2022-12-10 19:40:00 Aria Joyner [facility] ACTIVATED PARTIAL THRMPLAS ROD 2022-12-10 19:40:00 Ayo Joyner [facility] CONSENT/REFUSAL FOR DIAGNOSIS AND TREATMENT 2022-12-10 19:14:05 Doctor Unassigned, [place] [facility] ASSIGNMENT OF BENEFITS 2022-12-05 03:46:41 Lior jackson Unassigned, [place] [facility] CONSENT/REFUSAL FOR DIAGNOSIS AND TREATMENT 2022-12-05 03:28:46 Doctor Unassigned, [place] [facility] GLYCOSYLATED HEMOGLOBIN (A1C) 2022-11-24 17:51:00 Kwadwo Patel [facility] ASSIGNMENT OF BENEFITS 2022-11-18 20:52:28 Docmelissa r Unassigned, [place] [facility] CONSENT/REFUSAL FOR DIAGNOSIS AND TREATMENT 2022-11-18 19:41:41 Doctor Unassigned, [place] [facility] PATIENT FINANCIAL POLICY 2022-09-18 21:02:34 Doctor Unassigned, [place] [facility] SCANNED LAB RESULTS 2022-07-18 06:01:00 Doctor Anna unger, [place] [facility] DIABETES TESTING REPORTS 2022-06-23 06:01:00 Shadi ervin Unassigned, [place] [facility] DIABETES TESTING REPORTS 2022-06-02 06:01:00 Doc tor Unassigned, [place] [facility] DIABETES TESTING REPORTS 2022-05-15 05:01:00 Doc tor Unassigned, [place] [facility] EXTERNAL PROVIDER RECORDS 2022-05-07 05:01:00 Do ctor Unassigned, [place] [facility] FLU VACC (), 6 MO-64 YRS, .5ML, IM, QUAD (FLUCELVAX) 2022-05-02 19:32:22 Kwadwo Patel [facility] URINALYSIS 2022-04-17 15:43:00 Sunshine Zhu [facility] PROTEIN CREAT RATIO URINE RANDOM 2022-04-17 15:43:00 Sunshine Zhu [facility] MICROALBUMIN URINE 2022-04-17 15:43:00 Bebe Zhu [facility] CBC WITHOUT DIFF 2022-04-17 14:56:00 [facility] 2022-04-17 14:56:00 Sunshine Zhu [facility] MAGNESIUM 2022-04-17 14:56:00 Sunshine Zhu [facility] BASIC METABOLIC PANEL (NA, K, CL, CO2, GLUCOSE, BUN, CREATININE, CA) 2022-04-17 14:56:00 Sunshine Zhu [facility] GLYCOSYLATED HEMOGLOBIN (A1C) 2022-04-17 14:56:00 Kwadwo Patel [facility] INTACT PTH CALCIUM GROUP 2022-04-17 14:56:00 Sunshine Castro [facility] Encounters Start Date/Time End Date/Time Encounter Type Admission Type Attending Clinicians Care Facility Care Department Encounter ID Source 2021-05-13 12:56:03 Emergency [facility] [id number] [facility] 2024-02-25 00:00:00 2024-03-01 10:34:24 [facility] 1.2.840.114 350.1.13.10 4.2.7.2.686 [id number] [facility] 2024-02-22 00:00:00 2024-02-22 15:16:07 Refill Kwadwo Patel [facility] 1.2.840.114 350.1.13.10 4.2.7.2.686 [id number] [id number] [facility] 2024-02-16 00:00:00 2024-02-17 09:39:35 Refill Kwadwo Patel [facility] 1.2.840.114 350.1.13.10 4.2.7.2.686 [id number] [id number] [facility] 2024-02-10 00:00:00 2024-02-10 15:11:28 Telephone Kwadwo Patel [facility] 1.2.840.114 350.1.13.10 4.2.7.2.686 [id number] [facility] 2024-02-04 00:00:00 2024-02-04 09:54:51 Telephone Kwadwo Patel [facility] 1.2.840.114 350.1.13.10 4.2.7.2.686 [id number] [facility] 2024-01-28 00:00:00 2024-01-29 13:03:56 Refill Corin Chan [facility] 1.2.840.114 350.1.13.10 4.2.7.2.686 [id number] [facility] 2024-01-08 00:00:00 2024-01-08 10:16:23 Refill Kwadwo Patel [facility] 1.2.840.114 350.1.13.10 4.2.7.2.686 [id number] [facility] 2023-12-29 09:45:00 2023-12-29 09:45:00 Outpatient R JANEE SOTELO [facility] [id number] [facility] 2023-12-24 00:00:00 2023-12-24 14:16:22 Telephone Amanda Kwadwo [facility] 1.2.840.114 350.1.13.10 4.2.7.2.686 [id number] [facility] 2023-11-11 00:00:00 2023-12-24 14:15:47 Refill Kwadwo Patel [facility] 1.2.840.114 350.1.13.10 4.2.7.2.686 [id number] [facility] 2023-12-21 00:00:00 2023-12-23 12:36:09 Refill Kwadwo Patel [facility] 1.2.840.114 350.1.13.10 4.2.7.2.686 [id number] [facility] 2023-12-10 10:40:00 2023-12-10 10:40:00 Outpatient R RENÉZAKIAKWADWO ZAMBRANO [facility] [id number] [facility] 2023-11-20 15:30:00 2023-11-20 15:30:00 Outpatient R CORIN CHAN [facility] [id number] [facility] 2023-11-20 00:00:00 2023-11-20 14:33:14 Telephone Kwadwo Patel [facility] 1.2.840.114 350.1.13.10 4.2.7.2.686 [id number] [facility] 2023-10-23 15:00:00 2023-10-23 15:00:00 Ocean Forwarder Visit 2, Adc Lab Yulisa, [facility] 1.2840.114 350.1.13.10 4.2.7.2.686 [id number] [facility] 2023-10-23 14:30:00 2023-10-23 14:33:14 Outpatient R SKINNY LIND [facility] [id number] [facility] 2023-10-23 14:30:00 2023-10-23 14:33:14 Office Visit Chan [facility] 1.2840.114 350.1.13.10 4.2.7.2.686 [id number] [facility] 2023-10-23 00:00:00 2023-10-23 00:00:00 Refill Corin Chan [facility] 1.2840.114 350.1.13.10 4.2.7.2.686 [id number] [facility] 2023-10-19 00:00:00 2023-10-19 00:00:00 Refill Kwadwo Patel [facility] 1.2840.114 350.1.13.10 4.2.7.2.686 [id number] 044 [id number] [facility] 2023-09-29 00:00:00 2023-09-29 00:00:00 Orders Only Doctor Unassigned, [place] [facility] 1.2840.114 350.1.13.10 4.2.7.2.686 [id number] [facility] 2023-09-28 00:00:00 2023-09-28 00:00:00 Telephone Kwadwo Patel [facility] 1.2840.114 350.1.13.10 4.2.7.2.686 [id number] [facility] 2023-09-28 00:00:00 2023-09-28 00:00:00 Telephone Kwadwo Patel [facility] 1.2.840.114 350.1.13.10 4.2.7.2.686 [id number] [id number] [facility] 2023-09-16 00:00:00 2023-09-16 00:00:00 Orders Only Doctor Unassigned, [place] [facility] 1.840.114 350.1.13.10 4.2.7.2.686 [id number] [facility] 2023-09-04 08:40:00 2023-09-04 08:40:00 Outpatient R KWADWO PATEL [facility] [id number] [facility] 2023-09-04 08:40:00 2023-09-04 08:40:00 Outpatient R OBI-HARDIK , ALICE OBI-HARDIK , ALICE [facility] [id number] [facility] 2023-08-20 00:00:00 2023-08-20 00:00:00 Refill Kwadwo Patel [facility] 1..840.114 350.1.13.10 4.2.7.2.686 [id number] [facility] 2023-08-19 00:00:00 2023-08-19 00:00:00 Telephone Kwadwo Patel [facility] 1..840.114 350.1.13.10 4.2.7.2.686 [id number] [facility] 2023-08-18 15:00:00 2023-08-18 15:00:00 Outpatient R CORIN CHAN [facility] [id number] [facility] 2023-08-18 00:00:00 2023-08-18 00:00:00 Telephone Renézakiajuan manuel Kwadwo [facility] 1.2840.114 350.1.13.10 4.2.7.2.686 [id number] [facility] 2023-08-17 00:00:00 2023-08-17 00:00:00 Nurse Triage Ema Biggs [facility] 1.20.114 350.1.13.10 4.2.7.2.686 [id number] [facility] 2023-08-17 00:00:00 2023-08-17 00:00:00 Telephone RenézakiaKwadwo zambrano [facility] 1.2840.114 350.1.13.10 4.2.7.2.686 [id number] [facility] 2023-08-13 00:00:00 2023-08-13 00:00:00 Telephone Kwadwo Patel [facility] 1.2840.114 350.1.13.10 4.2.7.2.686 [id number] [facility] 2023-07-14 00:00:00 2023-07-14 00:00:00 Telephone Kwadwo Patel [facility] 1.2840.114 350.1.13.10 4.2.7.2.686 [id number] [facility] 2023-07-01 11:20:00 2023-07-01 11:20:00 Outpatient R KWADWO PATEL [facility] [id number] [facility] 2023-07-01 00:00:00 2023-07-01 00:00:00 Orders Only Doctor Unassigned, [place] [facility] 1.2840.114 350.1.13.10 4.2.7.2.686 [id number] [facility] 2023-06-16 00:00:00 2023-06-16 00:00:00 Nurse Triage Luis Marely [facility] 1.2.840.114 350.1.13.10 4.2.7.2.686 [id number] [facility] 2023-06-09 00:00:00 2023-06-09 00:00:00 Orders Only Doctor Unassigned, [place] [facility] 1.2.840.114 350.1.13.10 4.2.7.2.686 [id number] [facility] 2023-06-08 00:00:00 2023-06-08 00:00:00 Telephone Kwadwo Patel [facility] 1.2.840.114 350.1.13.10 4.2.7.2.686 [id number] [facility] 2023-06-01 00:00:00 2023-06-01 00:00:00 Telephone Kwadwo Patel [facility] 1.2.840.114 350.1.13.10 4.2.7.2.686 [id number] [facility] 2023-05-20 00:00:00 2023-05-20 00:00:00 Refill Kwadwo Patel [facility] 1.2.840.114 350.1.13.10 4.2.7.2.686 [id number] [facility] 2023-05-12 13:30:00 2023-05-12 13:30:00 Outpatient R JANEE SOTELO [facility] [id number] [facility] 2023-04-21 00:00:00 2023-04-21 00:00:00 Orders Only Doctor Unassigned, [place] [facility] 1.2.840.114 350.1.13.10 4.2.7.2.686 [id number] [facility] 2023-04-20 00:00:00 2023-04-20 00:00:00 Refill Kwadwo Patel [facility] 1.2.840.114 350.1.13.10 4.2.7.2.686 [id number] 044 [id number] [facility] 2023-04-14 00:00:00 2023-04-14 00:00:00 Telephone Kwadwo Patel [facility] 1.2.840.114 350.1.13.10 4.2.7.2.686 [id number] [facility] 2023-04-08 00:00:00 2023-04-08 00:00:00 Orders Only Doctor Unassigned, [place] [facility] 1.2.840.114 350.1.13.10 4.2.7.2.686 [id number] [facility] 2023-04-02 00:00:00 2023-04-02 00:00:00 Telephone Kwadwo Patel [facility] 1.2.840.114 350.1.13.10 4.2.7.2.686 [id number] [facility] 2023-03-31 00:00:00 2023-03-31 00:00:00 Telephone Kwadwo Patel [facility] 1.2.840.114 350.1.13.10 4.2.7.2.686 [id number] [facility] 2023-03-27 11:20:00 2023-03-27 12:28:10 Outpatient R KWADWO PATEL [facility] [id number] [facility] 2023-03-27 11:20:00 2023-03-27 12:28:10 Office Visit Kwadwo Patel [facility] 1.2.840.114 350.1.13.10 4.2.7.2.686 [id number] [facility] 2023-03-27 00:00:00 2023-03-27 00:00:00 Transition of Care Dina Medley [facility] 1.2840.114 350.1.13.10 4.2.7.2.686 [id number] [facility] 2023-03-18 17:24:00 2023-03-26 16:41:00 Inpatient X ROSI JONES [facility] [id number] [facility] 2023-03-18 17:24:00 2023-03-26 16:41:00 Hospital Encounter Sarah Goodman David [facility] 1.2840.114 350.1.13.10 4.2.7.2.686 [id number] [facility] 2023-03-20 11:45:00 2023-03-20 12:45:00 Surgery Foreign Wilkinson [facility] 1.2840.114 350.1.13.10 4.2.7.2.686 [id number] [facility] 2023-03-18 00:00:00 2023-03-18 00:00:00 Telephone Kwadwo Patel [facility] 1.2840.114 350.1.13.10 4.2.7.2.686 [id number] [facility] 2023-03-03 00:00:00 2023-03-03 00:00:00 Telephone Kwadwo Patel [facility] 1.2840.114 350.1.13.10 4.2.7.2.686 [id number] [facility] 2023-02-24 10:00:00 2023-02-24 10:00:00 Outpatient R KATALINA GERI [facility] [id number] [facility] 2023-02-24 10:00:00 2023-02-24 10:00:00 [facility] 1.2.840.114 350.1.13.10 4.2.7.2.686 [id number] [facility] 2023-02-23 11:41:43 2023-02-23 11:41:43 Anesthesia Event Raya Marina Esteban [facility] ([facility]) 1.2.840.114 350.1.13.10 4.2.7.2.686 [id number] [facility] 2023-02-20 00:00:00 2023-02-20 00:00:00 Telephone Nurse, [facility] ([facility]) 1.2.840.114 350.1.13.10 4.2.7.2.686 [id number] [facility] 2023-02-20 00:00:00 2023-02-20 00:00:00 [facility] 1.2.840.114 350.1.13.10 4.2.7.2.686 [id number] [facility] 2023-02-10 08:00:00 2023-02-10 08:00:00 Hospital Encounter [facility] ([facility]) 1.2.840.114 350.1.13.10 4.2.7.2.686 [id number] [facility] 2023-02-09 00:00:00 2023-02-09 00:00:00 Telephone Nurse, Kiran Echo [facility] ([facility]) 1.2840.114 350.1.13.10 4.2.7.2.686 [id number] [facility] 2023-02-03 08:05:00 2023-02-03 08:10:00 Pre-Anesth esia Evaluation Call, Clc Apac Phone [facility] ([facility]) 1.284.114 350.1.13.10 4.2.7.2.686 [id number] [facility] 2023-01-27 14:20:00 2023-01-27 14:20:00 Outpatient EDY INIGUEZ HOWARD [facility] [id number] [facility] 2023-01-16 10:00:00 2023-01-16 10:00:00 Outpatient GERI COTTO [facility] [id number] [facility] 2023-01-02 11:50:00 2023-01-02 11:55:00 Pre-Anesth esia Evaluation Call, Clc Apac Phone [facility] ([facility] 1.2840.114 350.1.13.10 4.2.7.2.686 [id number] [facility] 2023-01-02 00:00:00 2023-01-02 00:00:00 Outpatient GERI COTTO [facility] [id number] [facility] 2023-01-02 00:00:00 2023-01-02 00:00:00 Patient Secure Msg Doctor Unassigned, [place] [facility] 1.2840.114 350.1.13.10 4.2.7.2.686 [id number] [facility] 2022-12-26 00:00:00 2022-12-26 00:00:00 Transition of Care Dina Medley 1.2.840.114 350.1.13.10 4.2.7.2.686 [id number] [facility] 2022-12-23 15:56:00 2022-12-25 14:16:00 Inpatient U PRIMITIVO REYNOLDS JOSHUA [facility] [id number] [facility] 2022-12-23 15:56:00 2022-12-25 14:16:00 Hospital Encounter Jose Luque Jigar Bebe Reynoldsshua [facility] ([facility]) 1.2.840.114 350.1.13.10 4.2.7.2.686 [id number] [facility] 2022-12-25 00:00:00 2022-12-25 00:00:00 Telephone Trevor Dan [facility] 1.2.840.114 350.1.13.10 4.2.7.2.686 [id number] [facility] 2022-12-24 00:00:00 2022-12-24 00:00:00 Letter (Out) Primitivo Reynolds [facility] ([facility]) 1.2.840.114 350.1.13.10 4.2.7.2.686 [id number] [facility] 2022-12-19 10:20:00 2022-12-19 11:51:47 Outpatient R KWADWO PATEL [facility] [id number] [facility] 2022-12-19 10:20:00 2022-12-19 11:51:47 [facility] 1.2.840.114 350.1.13.10 4.2.7.2.686 [id number] [facility] 2022-12-10 14:24:00 2022-12-10 18:44:00 Emergency X AYO JOYNER [facility] E[facility] [id number] [facility] 2022-12-10 14:24:00 2022-12-10 18:44:00 Emergency Ayo Joyner [facility] 1.2.840.114 350.1.13.10 4.2.7.2.686 [id number] [facility] 2022-12-06 00:00:00 2022-12-06 00:00:00 Telephone [facility] 1.2.840.114 350.1.13.10 4.2.7.2.686 [id number] [id number] [facility] 2022-12-04 22:38:00 2022-12-04 22:53:00 Emergency X MASHA AVILA [facility] ERT [id number] [facility] 2022-12-04 22:38:00 2022-12-04 22:53:00 Emergency Masha Avila [facility] 1.2.840.114 350.1.13.10 4.2.7.2.686 [id number] [facility] 2022-12-04 00:00:00 2022-12-04 00:00:00 Orders Only Doctor Unassigned, [place] [facility] 1.2.840.114 350.1.13.10 4.2.7.2.686 [id number] [facility] 2022-12-04 00:00:00 2022-12-04 00:00:00 Telephone Alize León [facility] 1.2.840.114 350.1.13.10 4.2.7.2.686 [id number] [facility] 2022-11-24 13:00:00 2022-11-24 13:15:00 Ocean Forwarder Visit Pob, Adc Lab Main Kwadwo Patel [facility] 1.2.840.114 350.1.13.10 4.2.7.2.686 [id number] [facility] 2022-11-24 13:00:00 2022-11-24 13:00:00 Outpatient R KWADWO PATEL [facility] [id number] [facility] 2022-11-24 00:00:00 2022-11-24 00:00:00 Telephone [facility] 1.2.840.114 350.1.13.10 4.2.7.2.686 [id number] 044 [id number] [facility] 2022-11-18 14:47:00 2022-11-18 17:38:00 Emergency X TALA AQUINO [facility] [id number] [facility] 2022-11-18 14:47:00 2022-11-18 17:38:00 Emergency Tala Aquino [facility] 1.2.840.114 350.1.13.10 4.2.7.2.686 [id number] [facility] 2022-10-21 00:00:00 2022-10-21 00:00:00 Outpatient R KWADWO PATEL [facility] [id number] [facility] 2022-10-17 00:00:00 2022-10-17 00:00:00 Telephone [facility] Patel [facility] 1.2.840.114 350.1.13.10 4.2.7.2.686 [id number] 044 [id number] [facility] 2022-09-18 15:00:00 2022-09-18 15:39:13 Outpatient R KWADWO PATEL [facility] [id number] [facility] 2022-09-18 15:00:00 2022-09-18 15:39:13 Office Visit [facility] Pat[facility] 1.2.840.114 350.1.13.10 4.2.7.2.686 [id number] 044 [id number] [facility] 2022-09-18 00:00:00 2022-09-18 00:00:00 Orders Only Doctor Unassigned, [place] [facility] 1.2.840.114 350.1.13.10 4.2.7.2.686 [id number] [facility] 2022-09-18 00:00:00 2022-09-18 00:00:00 Telephone Kwadwo Patel [facility] 1.2.840.114 350.1.13.10 4.2.7.2.686 [id number] [facility] 2022-08-15 15:40:00 2022-08-15 15:40:00 Outpatient R KWADWO PATEL [facility] [id number] [facility] 2022-08-13 00:00:00 2022-08-13 00:00:00 Refill Kwadwo Patel [facility] 1.2.840.114 350.1.13.10 4.2.7.2.686 [id number] 044 [id number] [facility] 2022-08-11 08:30:00 2022-08-11 08:30:00 Outpatient R [facility] [id number] [facility] 2022-07-25 00:00:00 2022-07-25 00:00:00 Telephone Kwadwo Patel [facility] 1.2.840.114 350.1.13.10 4.2.7.2.686 [id number] 044 [id number] [facility] 2022-07-24 00:00:00 2022-07-24 00:00:00 Telephone Kwadwo Patel [facility] 1.2840.114 350.1.13.10 4.2.7.2.686 [id number] 044 [id number] [facility] 2022-07-18 00:00:00 2022-07-18 00:00:00 Orders Only Doctor Unassigned, [place] [facility] 1.2840.114 350.1.13.10 4.2.7.2.686 [id number] [id number] [facility] 2022-07-10 14:40:00 2022-07-10 15:00:00 Urgent Care Lex Dave, Attending [facility] 1.284.114 350.1.13.10 4.2.7.2.686 [id number] [facility] 2022-07-10 14:40:00 2022-07-10 14:40:00 Outpatient LEX MARC III [facility] [id number] [facility] 2022-07-10 00:00:00 2022-07-10 00:00:00 Cindy Aguayo [facility]?GRAZYNAJung [facility] 1.284.114 350.1.13.10 4.2.7.2.686 [id number] [facility] 2022-07-04 00:00:00 2022-07-04 00:00:00 Telephone Kwadwo Patel [facility] 1.840.114 350.1.13.10 4.2.7.2.686 [id number] 044 [id number] [facility] 2022-06-24 00:00:00 2022-06-24 00:00:00 Telephone Kwadwo Patel [facility] 1.2840.114 350.1.13.10 4.2.7.2.686 [id number] 044 [id number] [facility] 2022-06-23 00:00:00 2022-06-23 00:00:00 Orders Only Doctor Unassigned, [place] [facility] 1.2.840.114 350.1.13.10 4.2.7.2.686 [id number] [id number] [facility] 2022-06-18 00:00:00 2022-06-18 00:00:00 Telephone Kwadwo Patel [facility] 1.2.840.114 350.1.13.10 4.2.7.2.686 [id number] 044 [id number] [facility] 2022-06-18 00:00:00 2022-06-18 00:00:00 Refill RubyKwadwo zambrano [facility] 1.2.840.114 350.1.13.10 4.2.7.2.686 [id number] 044 [id number] [facility] 2022-06-16 00:00:00 2022-06-16 00:00:00 Telephone RenézakiaKwadwo zambrano [facility] 1.2.840.114 350.1.13.10 4.2.7.2.686 [id number] 044 [id number] [facility] 2022-06-04 00:00:00 2022-06-04 00:00:00 Refill RenézakiaKwadwo zambrano [facility] 1.2.840.114 350.1.13.10 4.2.7.2.686 [id number] 044 [id number] [facility] 2022-06-02 00:00:00 2022-06-02 00:00:00 Telephone EugenioKwadwo gray [facility] 1.2.840.114 350.1.13.10 4.2.7.2.686 [id number] 044 [id number] [facility] 2022-06-02 00:00:00 2022-06-02 00:00:00 Orders Only Doctor Unassigned, [place] [facility] 1.2.840.114 350.1.13.10 4.2.7.2.686 [id number] [facility] 2022-05-30 00:00:00 2022-05-30 00:00:00 Telephone Kwadwo Patel [facility] 1.2.840.114 350.1.13.10 4.2.7.2.686 [id number] 044 [id number] [facility] 2022-05-29 00:00:00 2022-05-29 00:00:00 Telephone Kwadwo Patel [facility] 1.2.840.114 350.1.13.10 4.2.7.2.686 [id number] 044 [id number] [facility] 2022-05-15 00:00:00 2022-05-15 00:00:00 Telephone RenézakiaKwadwo zambrano [facility] 1.2.840.114 350.1.13.10 4.2.7.2.686 [id number] 044 [id number] [facility] 2022-05-15 00:00:00 2022-05-15 00:00:00 Orders Only Doctor Unassigned, [place] [facility] 1.2.840.114 350.1.13.10 4.2.7.2.686 [id number] [id number] [facility] 2022-05-07 00:00:00 2022-05-07 00:00:00 Orders Only Doctor Unassigned, [place] [facility] 1.2.840.114 350.1.13.10 4.2.7.2.686 [id number] [id number] [facility] 2022-05-02 14:40:00 2022-05-02 16:00:59 Outpatient R KWADWO PATEL [facility] [id number] [facility] 2022-05-02 14:40:00 2022-05-02 16:00:59 Office Visit Kwadwo Patel [facility] EMMANUEL CID [facility] 1.2.840.114 350.1.13.10 4.2.7.2.686 [id number] 044 [id number] [facility] 2022-05-02 00:00:00 2022-05-02 00:00:00 Telephone Kwadwo Patel [facility] 1.2.840.114 350.1.13.10 4.2.7.2.686 [id number] 044 [id number] [facility] 2022-05-01 00:00:00 2022-05-01 00:00:00 Telephone Kwadwo Patel [facility] 1.2.840.114 350.1.13.10 4.2.7.2.686 [id number] 044 [id number] [facility] 2022-04-28 00:00:00 2022-04-28 00:00:00 Refill Kwadwo Patel [facility] 1.2.840.114 350.1.13.10 4.2.7.2.686 [id number] 044 [id number] [facility] 2022-04-22 00:00:00 2022-04-22 00:00:00 Refill Kwadwo Patel [facility] 1.2.840.114 350.1.13.10 4.2.7.2.686 [id number] [facility] 2022-04-21 00:00:00 2022-04-21 00:00:00 Telephone Kwadwo Patel [facility] 1.2.840.114 350.1.13.10 4.2.7.2.686 [id number] 044 [id number] [facility] 2022-04-17 10:00:00 2022-04-17 10:15:00 Ocean Forwarder Visit Pob, Adc Lab Main Kwadwo Patel [facility] 1.2.840.114 350.1.13.10 4.2.7.2.686 [id number] [facility] 2022-04-17 10:00:00 2022-04-17 10:00:00 Outpatient R KWADWO PATEL [facility] [id number] [facility] 2022-04-17 00:00:00 2022-04-17 00:00:00 Case Management [facility] 1.840.114 350.1.13.10 4.2.7.2.686 [id number] [facility] 2022-04-17 00:00:00 2022-04-17 00:00:00 Telephone Kwadwo Patel [facility] 1..840.114 350.1.13.10 4.2.7.2.686 [id number] [id number] [facility] 2022-04-14 00:00:00 2022-04-14 00:00:00 Telephone Kwadwo Patel [facility] 1.2.840.114 350.1.13.10 4.2.7.2.686 [id number] [facility] 2022-04-11 15:30:00 2022-04-11 15:30:00 Outpatient R SKINNY LIND OGECHUKWU [facility] [id number] [facility] 2022-04-11 00:00:00 2022-04-11 00:00:00 Telephone [facility] 1.840.114 350.1.13.10 4.2.7.2.686 [id number] [facility] 2022-04-10 14:40:00 2022-04-10 14:40:00 Outpatient R KWADWO PATEL [facility] [id number] [facility] 2022-04-07 08:30:00 2022-04-07 08:30:00 Outpatient R SUNSHINE ZHU [facility] [id number] [facility] 2022-04-02 13:00:00 2022-04-02 13:00:00 Outpatient R [facility] [id number] [facility] 2022-03-28 00:00:00 2022-03-28 00:00:00 Refill Kwadwo Patel [facility] 1.2.840.114 350.1.13.10 4.2.7.2.686 [id number] [facility] 2022-03-25 13:00:00 2022-03-25 13:00:00 Outpatient R JANEE SOTELO [facility] [id number] [facility] 2022-03-25 00:00:00 2022-03-25 00:00:00 Refill Kwadwo Patel [facility] 1.2.840.114 350.1.13.10 4.2.7.2.686 [id number] 044 [id number] [facility] 2022-03-21 00:00:00 2022-03-21 00:00:00 Refill Kwadwo Patel [facility] 1.2.840.114 350.1.13.10 4.2.7.2.686 [id number] 044 [id number] [facility] 2022-03-13 00:00:00 2022-03-13 00:00:00 Telephone Kwadwo Patel [facility] 1.2.840.114 350.1.13.10 4.2.7.2.686 [id number] 044 [id number] [facility] 2022-03-05 00:00:00 2022-03-05 00:00:00 Refill Kwadwo Patel [facility] 1.2.840.114 350.1.13.10 4.2.7.2.686 [id number] [id number] [facility] 2022-02-25 00:00:00 2022-02-25 00:00:00 Telephone Kwadwo Patel [facility] 1.2.840.114 350.1.13.10 4.2.7.2.686 [id number] [facility] 2022-02-13 00:00:00 2022-02-13 00:00:00 Telephone Kwadwo Patel [facility] 1.2.840.114 350.1.13.10 4.2.7.2.686 [id number] 044 [id number] [facility] 2022-02-12 12:00:00 2022-02-12 12:00:00 Outpatient CINDY HAMILTON [facility] [id number] [facility] 2022-02-12 00:00:00 2022-02-12 00:00:00 Telephone Kwadwo Patel [facility] 1.2.840.114 350.1.13.10 4.2.7.2.686 [id number] [facility] 2022-02-06 00:00:00 2022-02-06 00:00:00 Orders Only Doctor Unassigned, [place] [facility] 1.2.840.114 350.1.13.10 4.2.7.2.686 [id number] [facility] 2022-02-04 12:00:00 2022-02-04 12:00:00 Outpatient CINDY HAMILTON [facility] [id number] [facility] 2022-02-03 00:00:00 2022-02-03 00:00:00 Telephone Kwadwo Patel [facility] 1.2.840.114 350.1.13.10 4.2.7.2.686 [id number] 044 [id number] [facility] 2022-02-03 00:00:00 2022-02-03 00:00:00 Telephone Kwadwo Patel [facility] 1.2.840.114 350.1.13.10 4.2.7.2.686 [id number] 044 [id number] [facility] 2022-01-31 00:00:00 2022-01-31 00:00:00 Telephone Kwadwo Patel [facility] 1.2.840.114 350.1.13.10 4.2.7.2.686 [id number] 044 [id number] [facility] 2022-01-31 00:00:00 2022-01-31 00:00:00 Telephone Kwadwo Patel [facility] 1.2.840.114 350.1.13.10 4.2.7.2.686 [id number] 044 [id number] [facility] 2022-01-31 00:00:00 2022-01-31 00:00:00 Telephone Kwadwo Patel [facility] 1.2.840.114 350.1.13.10 4.2.7.2.686 [id number] 044 [id number] [facility] 2022-01-28 00:00:00 2022-01-28 00:00:00 Telephone Kwadwo Patel [facility] 1.2.840.114 350.1.13.10 4.2.7.2.686 [id number] [facility] 2022-01-22 20:32:00 2022-01-22 21:50:00 Emergency X CHEVY RODRÍGUEZ [facility] ERT [id number] [facility] 2022-01-22 20:32:00 2022-01-22 21:50:00 Emergency Chevy Rodríguez [facility] 1.840.114 350.1.13.10 4.2.7.2.686 [id number] [facility] 2022-01-08 15:20:00 2022-01-08 15:20:00 Outpatient R KWADWO PATEL [facility] [id number] [facility] 2022-01-08 15:20:00 2022-01-08 15:20:00 Outpatient R KWADWO PATEL [facility] [id number] [facility] 2022-01-07 13:00:00 2022-01-07 13:00:00 Outpatient JUAN RAMON ROYAL [facility] [id number] [facility] 2022-01-02 00:00:00 2022-01-02 00:00:00 Kwadwo Churchill [facility] 1..840.114 350.1.13.10 4.2.7.2.686 [id number] [facility] 2021-12-12 08:00:00 2021-12-12 08:00:00 Outpatient R JUAN RAMON VELA [facility] [id number] [facility] 2021-11-21 00:00:00 2021-11-21 00:00:00 Orders Only Doctor Unassigned, [place] [facility] 1.840.114 350.1.13.10 4.2.7.2.686 [id number] [facility] 2021-11-17 00:00:00 2021-11-17 00:00:00 Kwadwo Churchill [facility] 1.2.840.114 350.1.13.10 4.2.7.2.686 [id number] [id number] [facility] 2021-11-11 08:30:00 2021-11-11 08:30:00 Outpatient R JUAN RAMON VELA [facility] [id number] [facility] 2021-11-08 14:40:00 2021-11-08 15:16:44 Outpatient R KWADWO PATEL [facility] [id number] [facility] 2021-11-08 14:40:00 2021-11-08 15:16:44 Office Visit Kwadwo Patel [facility] 1.2.840.114 350.1.13.10 4.2.7.2.686 [id number] [id number] [facility] 2021-11-08 14:40:00 2021-11-08 15:16:44 Outpatient R KWADWO PATEL [facility] [id number] [facility] 2021-11-08 14:40:00 2021-11-08 15:16:44 Office Visit Kwadwo Patel [facility] 1.2.840.114 350.1.13.10 4.2.7.2.686 [id number] [facility] 2021-10-29 00:00:00 2021-10-29 00:00:00 Telephone Kwadwo Patel [facility] EMMANUEL [facility] NAL BUILDING 1.2.840.114 350.1.13.10 4.2.7.2.686 [id number] 044 [id number] [facility] 2021-10-17 00:00:00 2021-10-17 00:00:00 Telephone Kwadwo Patel [facility] 1.2.840.114 350.1.13.10 4.2.7.2.686 [id number] 044 [id number] [facility] 2021-10-17 00:00:00 2021-10-17 00:00:00 Orders Only Doctor Unassigned, [place] [facility] 1.2.840.114 350.1.13.10 4.2.7.2.686 [id number] [facility] 2021-10-16 08:15:00 2021-10-16 08:15:00 [facility] [id number] [facility] 2021-10-16 08:15:00 2021-10-16 08:15:00 Outpatient THAD MCCLURECUONG [facility] [id number] [facility] 2021-10-15 11:00:00 2021-10-15 11:00:00 Outpatient CINDY HAMILTON [facility] [id number] [facility] 2021-10-15 11:00:00 2021-10-15 11:00:00 Outpatient CINDY HAMILTON [facility] [id number] [facility] 2021-10-15 00:00:00 2021-10-15 00:00:00 Telephone Kwadwo Patel [facility] 1.2.840.114 350.1.13.10 4.2.7.2.686 [id number] [id number] [facility] 2021-10-10 00:00:00 2021-10-10 00:00:00 Telephone Kwadwo Patel [facility] 1.2.840.114 350.1.13.10 4.2.7.2.686 [id number] [id number] [facility] 2021-10-09 09:00:00 2021-10-09 09:00:00 Outpatient TAHD MCCLURECUONG [facility] [id number] [facility] 2021-10-09 00:00:00 2021-10-09 00:00:00 Telephone [facility] Patel [facility] 1..840.114 350.1.13.10 4.2.7.2.686 [id number] 044 [id number] [facility] 2021-10-07 00:00:00 2021-10-07 00:00:00 Telephone Kwadwo Patel [facility] 1.2.840.114 350.1.13.10 4.2.7.2.686 [id number] 044 [id number] [facility] 2021-10-04 16:20:00 2021-10-04 16:41:30 Outpatient R AMANDAKWADWO [facility] [id number] [facility] 2021-10-04 16:20:00 2021-10-04 16:41:30 Office Visit Renézakiajuan manuelKwadwo [facility] 1.2.840.114 350.1.13.10 4.2.7.2.686 [id number] [facility] 2021-10-04 16:20:00 2021-10-04 16:41:30 Outpatient R AMANDA KWADWO [facility] [id number] [facility] 2021-09-12 15:30:00 2021-09-12 15:30:00 Outpatient R SUNSHINE ZHU [facility] [id number] [facility] 2021-09-09 15:30:00 2021-09-09 15:30:00 Outpatient R SUNSHINE ZUH [facility] [id number] [facility] 2021-08-30 00:00:00 2021-08-30 00:00:00 [facility] 1.2.840.114 350.1.13.10 4.2.7.2.686 [id number] [facility] 2021-08-28 00:00:00 2021-08-28 00:00:00 [facility] 1.2.840.114 350.1.13.10 4.2.7.2.686 [id number] [facility] 2021-08-08 13:00:00 2021-08-08 13:58:03 Outpatient R KWADWO PATEL [facility] [id number] [facility] 2021-08-08 13:00:00 2021-08-08 13:58:03 Office Visit Kwadwo Patel [facility] 1.2.840.114 350.1.13.10 4.2.7.2.686 [id number] [facility] 2021-08-08 13:00:00 2021-08-08 13:58:03 Outpatient R KWADWO PATEL [facility] [id number] [facility] 2021-08-08 13:00:00 2021-08-08 13:58:03 Outpatient R KWADWO PATEL [facility] [id number] [facility] 2021-08-08 12:30:00 2021-08-08 12:45:00 Ocean Forwarder Visit Pob, Adc Lab Main Amanda [facility] BUILDING 1.2.840.114 350.1.13.10 4.2.7.2.686 [id number] [facility] 2021-08-08 00:00:00 2021-08-08 00:00:00 Orders Only Doctor Unassigned, [place] [facility] 1.2.840.114 350.1.13.10 4.2.7.2.686 [id number] [facility] 2021-08-07 11:20:00 2021-08-07 11:20:00 Outpatient R KWADWO PATEL [facility] [id number] [facility] 2021-08-07 11:20:00 2021-08-07 11:20:00 Outpatient R KWADWO PATEL [facility] [id number] [facility] 2021-07-19 00:00:00 2021-07-19 00:00:00 Telephone Kwadwo Patel [facility] 1.2.840.114 350.1.13.10 4.2.7.2.686 [id number] [facility] 2021-07-17 15:20:00 2021-07-17 15:20:00 Outpatient R KWADWO PATEL [facility] [id number] [facility] 2021-07-13 18:37:00 2021-07-13 23:49:00 Emergency X ERMA RAE [facility] [id number] [facility] 2021-07-13 18:37:00 2021-07-13 23:49:00 Emergency Erma Rae [facility] 1.2.840.114 350.1.13.10 4.2.7.2.686 [id number] [facility] 2021-07-09 00:00:00 2021-07-09 00:00:00 Telephone Kwadwo Patel [facility] 1.2.840.114 350.1.13.10 4.2.7.2.686 [id number] [facility] 2021-06-05 10:00:00 2021-06-05 11:11:23 Office Visit Cindy Martínez [facility] 1.2.840.114 350.1.13.10 4.2.7.2.686 [id number] [facility] 2021-06-05 10:00:00 2021-06-05 11:11:23 Outpatient R CINDY MARTÍNEZ [facility] [id number] [facility] 2021-06-05 10:00:00 2021-06-05 10:00:00 Outpatient R CINDY MARTÍNEZ [facility] [id number] [facility] 2021-06-05 10:00:00 2021-06-05 10:00:00 Outpatient R CINDY MARTÍNEZ [facility] [id number] [facility] 2021-06-05 00:00:00 2021-06-05 00:00:00 Refill Kwadwo Patel [facility] BUILDING 1.2.840.114 350.1.13.10 4.2.7.2.686 [id number] [facility] 2021-05-31 00:00:00 2021-05-31 00:00:00 Orders Only Doctor Unassigned, [place] [facility] 1.2840.114 350.1.13.10 4.2.7.2.686 [id number] [facility] 2021-05-28 00:00:00 2021-05-28 00:00:00 Refill Verónica Garcia [facility] BUILDING 1.2.840.114 350.1.13.10 4.2.7.2.686 [id number] [facility] 2021-05-23 00:00:00 2021-05-23 00:00:00 Refill Kwadwo Patel [facility] BUILDING 1.2.840.114 350.1.13.10 4.2.7.2.686 [id number] [facility] 2021-05-23 00:00:00 2021-05-23 00:00:00 RefVerónica Sewell [facility] BUILDING 1.2.840.114 350.1.13.10 4.2.7.2.686 [id number] [facility] 2021-05-23 00:00:00 2021-05-23 00:00:00 Refill Amanda Kwadwo [facility] 1.2.840.114 350.1.13.10 4.2.7.2.686 [id number] [facility] 2021-05-19 00:00:00 2021-05-19 00:00:00 Refill Kwadwo Patel [facility] 1.2.840.114 350.1.13.10 4.2.7.2.686 [id number] [id number] [facility] 2021-05-17 00:00:00 2021-05-17 00:00:00 Telephone Verónica Garcia [facility] 1.2.840.114 350.1.13.10 4.2.7.2.686 [id number] [facility] 2021-05-17 00:00:00 2021-05-17 00:00:00 Telephone Rubymadhuriisaac Kwawdo [facility] 1.2.840.114 350.1.13.10 4.2.7.2.686 [id number] [facility] 2021-05-16 00:00:00 2021-05-16 00:00:00 Telephone RenéprashantKwadwo gray [facility] 1.2.840.114 350.1.13.10 4.2.7.2.686 [id number] 044 [id number] [facility] 2021-05-14 00:00:00 2021-05-14 00:00:00 Orders Only Doctor Unassigned, [place] [facility] 1.2.840.114 350.1.13.10 4.2.7.2.686 [id number] [facility] 2021-05-13 00:00:00 2021-05-13 00:00:00 Telephone Kwadwo Patel [facility] 1.2.840.114 350.1.13.10 4.2.7.2.686 [id number] 044 [id number] [facility] 2021-05-10 00:00:00 2021-05-10 00:00:00 Telephone Kwadwo Patel [facility] 1.2.840.114 350.1.13.10 4.2.7.2.686 [id number] [facility] 2021-05-10 00:00:00 2021-05-10 00:00:00 Telephone Kwadwo Patel [facility] 1.2.840.114 350.1.13.10 4.2.7.2.686 [id number] 044 [id number] [facility] 2021-05-06 00:00:00 2021-05-06 00:00:00 Telephone Kwadwo Patel [facility] 1.2.840.114 350.1.13.10 4.2.7.2.686 [id number] 044 [id number] [facility] 2021-05-06 00:00:00 2021-05-06 00:00:00 Patient Secure Msg Doctor Unassigned, [place] [facility] 1.2.840.114 350.1.13.10 4.2.7.2.686 [id number] [facility] 2021-05-01 11:26:16 2021-05-01 12:49:01 Office Visit Kwadwo Patel [facility] 1.2.840.114 350.1.13.10 4.2.7.2.686 [id number] [facility] 2021-05-01 11:20:00 2021-05-01 12:49:01 Outpatient R EDEMEKONG, PETER [facility] [id number] [facility] 2021-05-01 11:20:00 2021-05-01 11:20:00 Outpatient R KWADWO PATEL [facility] [id number] [facility] 2021-05-01 00:00:00 2021-05-01 00:00:[address] [facility] 1.2.840.114 350.1.13.10 4.2.7.2.686 [id number] [facility] 2021-05-01 00:00:00 2021-05-01 00:00:00 Orders Only Doctor Unassigned, [place] [facility] 1.2.840.114 350.1.13.10 4.2.7.2.686 [id number] [facility] 2021-05-01 00:00:00 2021-05-01 00:00:00 Telephone Kwadwo Patel [facility] 1.2.840.114 350.1.13.10 4.2.7.2.686 [id number] [facility] 2021-05-01 00:00:00 2021-05-01 00:00:00 Telephone Kwadwo Patel [facility] 1.2.840.114 350.1.13.10 4.2.7.2.686 [id number] [facility] 2021-04-16 00:00:00 2021-04-16 00:00:00 Telephone Kwadwo Patel [facility] 1.2.840.114 350.1.13.10 4.2.7.2.686 [id number] [id number] [facility] 2021-03-30 00:00:00 2021-03-30 00:00:00 Orders Only Doctor Unassigned, [place] [facility] 1.2.840.114 350.1.13.10 4.2.7.2.686 [id number] [facility] 2021-03-20 13:20:00 2021-03-20 13:20:00 Outpatient R KWADWO PATEL [facility] [id number] [facility] 2021-03-11 12:30:00 2021-03-11 12:30:00 Outpatient R KWADWO PATEL [facility] [id number] [facility] 2021-03-11 11:59:10 2021-03-11 12:14:10 Ocean Forwarder Visit Pob, Adc Lab Main Kwadwo Patel [facility] 1.2.840.114 350.1.13.10 4.2.7.2.686 [id number] [facility] 2021-03-11 00:00:00 2021-03-11 00:00:00 Orders Only Doctor Unassigned, [place] [facility] 1.2840.114 350.1.13.10 4.2.7.2.686 [id number] [id number] [facility] 2021-03-05 00:00:00 2021-03-05 00:00:00 Orders Only Doctor Unassigned, [place] [facility] 1.2.840.114 350.1.13.10 4.2.7.2.686 [id number] [facility] 2021-02-20 08:00:00 2021-02-20 08:00:00 Outpatient KWADWO SAWYER [facility] [id number] [facility] 2020-12-14 09:40:00 2020-12-14 09:40:00 Outpatient KWADWO SAWYER [facility] [id number] [facility] 2020-09-11 09:20:00 2020-09-11 09:20:00 Outpatient R KWADWO PATEL [facility] [id number] [facility] 2020-08-15 00:00:00 2020-08-15 00:00:00 Outpatient R HAYESDAYTON [facility] [id number] [facility] 2020-08-06 13:30:00 2020-08-06 13:30:00 Outpatient R BALWINDERJESSICA [facility] [id number] [facility] 2020-08-06 12:00:00 2020-08-06 12:00:00 Outpatient R NHUNG BURGESSENA [facility] [id number] [facility] 2020-08-02 14:45:00 2020-08-02 14:45:00 Outpatient R HAYESDAYTON [facility] [id number] [facility] 2020-06-13 09:00:00 2020-06-13 09:00:00 Outpatient R KWADWO PATEL [facility] [id number] [facility] 2020-06-11 10:00:00 2020-06-11 10:00:00 Outpatient R SHALONDA BURGESS [facility] [id number] [facility] 2020-05-29 08:40:00 2020-05-29 08:40:00 Outpatient KWADWO SAWYER [facility] [id number] [facility] 2020-04-19 13:00:00 2020-04-19 13:00:00 Outpatient KARINA MARTIN [facility] [id number] [facility] 2020-03-27 14:40:00 2020-03-27 14:40:00 Outpatient KWADWO SAWYER [facility] [id number] [facility] 2020-03-13 14:40:00 2020-03-13 14:40:00 Outpatient R KWADWO PATEL [facility] [id number] [facility] 2020-03-13 09:00:00 2020-03-13 09:00:00 Outpatient YVES KABA [facility] [id number] [facility] 2020-03-12 09:00:00 2020-03-12 09:00:00 Outpatient R JESSICA BRANTLEY [facility] [id number] [facility] 2020-03-08 16:00:00 2020-03-08 16:00:00 Outpatient R KWADWO PATEL [facility] [id number] [facility] 2020-03-05 13:00:00 2020-03-05 13:00:00 Outpatient R ANA AILYNAASHISHPAU [facility] [id number] [facility] 2020-03-05 09:00:00 2020-03-05 09:00:00 Outpatient R JESSICA BRANTLEY [facility] [id number] [facility] 2020-02-28 10:30:00 2020-02-28 10:30:00 Outpatient R [facility] [id number] [facility] 2020-02-27 13:30:00 2020-02-27 13:30:00 Outpatient R KIMBERLYMYRANDASHALONDA [facility] [id number] [facility] 2020-02-24 14:40:00 2020-02-24 14:40:00 Outpatient R KWADWO PATEL [facility] [id number] [facility] 2020-02-15 09:40:00 2020-02-15 09:40:00 Outpatient R UBALDO ESTEVEZA [facility] [id number] [facility] 2020-02-02 00:00:00 2020-02-02 00:00:00 Telephone Burak Rose [facility] 1.2.840.114 350.1.13.10 4.2.7.2.686 [id number] 2020-02-02 00:00:00 2020-02-02 00:00:00 Telephone Mariya Perez [facility] 1.2.840.114 350.1.13.10 4.2.7.2.686 [id number] 2020-02-02 00:00:00 2020-02-02 00:00:00 Telephone Mariya Perez [facility] Maria Elena Cid [facility] 1.2.840.114 350.1.13.10 4.2.7.2.686 [id number] 2020-01-26 11:20:00 2020-01-26 11:20:00 Outpatient R [facility] [id number] [facility] 2019-12-01 13:00:00 2019-12-01 13:00:00 Outpatient R KYLEJAY [facility] [id number] [facility] 2019-11-03 12:40:00 2019-11-03 12:40:00 Outpatient R ZENAIDA YVES [facility] [id number] [facility] 2019-10-17 10:35:00 2019-10-17 10:35:00 Outpatient R AILYN PEREZAASHISHPAU [facility] [id number] [facility] 2019-09-01 15:00:00 2019-09-01 15:00:00 Outpatient R MUÑOZANALIA ROBERTS [facility] [id number] [facility] 2019-06-12 23:58:56 2019-06-13 03:30:00 Emergency X CHEVY RODRÍGUEZ [facility] ERT [id number] [facility] Results Test Description Test Time Test Comments Results Result Co mments Source [facility] GLUCOSE (AUTOMATED)2023-03-26 12:48:30* Test Item Value Reference Range Interpretation Comme nts POCT GLU (test code = 4349613013) 214 mg/dL 70-110 H Lab Interpretation (test cod e = 18309-5) Abnormal [facility] GLUCOSE (AUTOMATED)2023-03-26 11:14:59* Test Item Value Reference Range Interpretation Comme [facility] POCT GLU (test code = 8224485528) 251 mg/dL 70-110 H Lab Interpretation (test cod e = 07278-5) Abnormal [facility] GLUCOSE (AUTOMATED)2023-03-26 08:14:39* Test Item Value Reference Range Interpretation Comme nts POCT GLU (test code = 2551952570) 308 mg/dL 70-110 H Lab Interpretation (test cod e = 10238-7) Abnormal [facility] GLUCOSE (AUTOMATED)2023-03-26 04:52:17* Test Item Value Reference Range Interpretation Comme nts POCT GLU (test code = 5834484105) 381 mg/dL 70-110 H Lab Interpretation (test cod e = 34265-4) Abnormal [facility] GLUCOSE (AUTOMATED)2023-03-26 01:19:30* Test Item Value Reference Range Interpretation Comme nts POCT GLU (test code = 1062430799) 382 mg/dL 70-110 H Lab Interpretation (test cod e = 19636-8) Abnormal [facility] GLUCOSE (AUTOMATED)2023-03-25 21:49:45* Test Item Value Reference Range Interpretation Comme nts POCT GLU (test code = 1944395708) 214 mg/dL 70-110 H Lab Interpretation (test cod e = 23080-6) Abnormal [facility] GLUCOSE (AUTOMATED)2023-03-25 16:55:00* Test Item Value Reference Range Interpretation Comme nts POCT GLU (test code = 9080162290) 238 mg/dL 70-110 H Lab Interpretation (test cod e = 89382-3) Abnormal [facility] GLUCOSE (AUTOMATED)2023-03-25 12:59:06* Test Item Value Reference Range Interpretation Comme nts POCT GLU (test code = 9116730222) 205 mg/dL 70-110 H Lab Interpretation (test cod e = 87986-1) Abnormal [facility] GLUCOSE (AUTOMATED)2023-03-25 01:05:50* Test Item Value Reference Range Interpretation Comme nts POCT GLU (test code = 9245949675) 209 mg/dL 70-110 H Lab Interpretation (test cod e = 72994-1) Abnormal [facility] GLUCOSE (AUTOMATED)2023-03-24 21:40:06* Test Item Value Reference Range Interpretation Comme nts POCT GLU (test code = 2226035330) 198 mg/dL 70-110 H Lab Interpretation (test cod e = 35669-4) Abnormal [facility] GLUCOSE (AUTOMATED)2023-03-24 16:49:51* Test Item Value Reference Range Interpretation Comme nts POCT GLU (test code = 9053232383) 162 mg/dL 70-110 H Lab Interpretation (test cod e = 84501-9) Abnormal [facility] GLUCOSE (AUTOMATED)2023-03-24 12:40:46* Test Item Value Reference Range Interpretation Comme nts POCT GLU (test code = 5502416287) 184 mg/dL 70-110 H Lab Interpretation (test cod e = 85442-7) Abnormal [facility] GLUCOSE (AUTOMATED)2023-03-24 01:22:06* Test Item Value Reference Range Interpretation Comme nts POCT GLU (test code = 6425634645) 239 mg/dL 70-110 H Lab Interpretation (test cod e = 86189-9) Abnormal [facility] CULTURE [id number] 01:01:24* Test Item Value Reference Range Interpretation Comme nts Blood Culture-Aerobic (test code = 32905-2) No organisms isolated No growth Previous preliminary verified result was Culture In Progress on 03/18/2023 at 2301 CDTPrevious preliminary verified result was No growth at 24 hours on 03/19/2023 at 2000 CDTPrevious preliminary verified result was No growth at 48 hours on 03/20/2023 at 2000 CDTPrevious preliminary verified result was No growth at 72 hours on 03/21/2023 at 2000 T Blood Culture-Anaerobic (test code = 54633-9) No organisms isolated No growth Previous preliminary verified result was Culture In Progress on 03/18/2023 at 2301 CDTPrevious preliminary verified result was No growth at 24 hours on 03/19/2023 at 2000 CDTPrevious preliminary verified result was No growth at 48 hours on 03/20/2023 at 2000 CDTPrevious preliminary verified result was No growth at 72 hours on 03/21/2023 at 2000 CDT Lab Interpretation (test code = 58178-3) Normal [facility] GLUCOSE (AUTOMATED)2023-03-23 21:49:40* Test Item Value Reference Range Interpretation Comme nts POCT GLU (test code = 0128346685) 168 mg/dL 70-110 H Lab Interpretation (test cod e = 20117-0) Abnormal [facility] GLUCOSE (AUTOMATED)2023-03-23 16:42:18* Test Item Value Reference Range Interpretation Comme nts POCT GLU (test code = 6913971431) 198 mg/dL 70-110 H Lab Interpretation (test cod e = 47589-1) [facility] 12:41:57* Test Item Value Reference Range Interpretation Comme nts POCT GLU (test code = 8136987109) 212 mg/dL 70-110 H Lab Interpretation (test cod e = 33197-9) [facility] 02:06:18* Test Item Value Reference Range Interpretation Comme nts POCT GLU (test code = 7031558639) 272 mg/dL 70-110 H Lab Interpretation (test cod e = 89005-1) Abnormal [facility] GLUCOSE (AUTOMATED)2023-03-22 21:58:17* Test Item Value Reference Range Interpretation Comme nts POCT GLU (test code = 8194193086) 236 mg/dL 70-110 H Lab Interpretation (test cod e = 96519-8) Abnormal [facility] GLUCOSE (AUTOMATED)2023-03-22 16:35:13* Test Item Value Reference Range Interpretation Comme nts POCT GLU (test code = 9440373042) 159 mg/dL 70-110 H Lab Interpretation (test cod e = 88479-8) Abnormal [facility] GLUCOSE (AUTOMATED)2023-03-22 13:21:24* Test Item Value Reference Range Interpretation Comme nts POCT GLU (test code = 7485444693) 207 mg/dL 70-110 H Lab Interpretation (test cod e = 45234-7) Abnormal [facility] GLUCOSE (AUTOMATED)2023-03-22 01:07:18* Test Item Value Reference Range Interpretation Comme nts POCT GLU (test code = 8758600064) 154 mg/dL 70-110 H Lab Interpretation (test cod e = 37699-0) Abnormal [facility] GLUCOSE (AUTOMATED)2023-03-22 01:07:18* Test Item Value Reference Range Interpretation Comme nts POCT GLU (test code = 3015892526) 154 mg/dL 70-110 H Lab Interpretation (test cod e = 31279-2) Abnormal [facility] GLUCOSE (AUTOMATED)2023-03-21 22:00:24* Test Item Value Reference Range Interpretation Comme nts POCT GLU (test code = 7265403680) 165 mg/dL 70-110 H Lab Interpretation (test cod e = 66556-8) Abnormal [facility] GLUCOSE (AUTOMATED)2023-03-21 22:00:24* Test Item Value Reference Range Interpretation Comme nts POCT GLU (test code = 8197804602) 165 mg/dL 70-110 H Lab Interpretation (test cod e = 51878-6) Abnormal [facility] GLUCOSE (AUTOMATED)2023-03-21 16:44:11* Test Item Value Reference Range Interpretation Comme nts POCT GLU (test code = 4058199565) 231 mg/dL 70-110 H Lab Interpretation (test cod e = 93241-5) Abnormal [facility] GLUCOSE (AUTOMATED)2023-03-21 16:44:11* Test Item Value Reference Range Interpretation Comme nts POCT GLU (test code = 5172156770) 231 mg/dL 70-110 H Lab Interpretation (test cod e = 40172-0) Abnormal [facility] GLUCOSE (AUTOMATED)2023-03-21 12:53:47* Test Item Value Reference Range Interpretation Comme nts POCT GLU (test code = 8663647171) 176 mg/dL 70-110 H Lab Interpretation (test cod e = 45631-0) Abnormal [facility] GLUCOSE (AUTOMATED)2023-03-21 12:53:47* Test Item Value Reference Range Interpretation Comme nts POCT GLU (test code = 9395120389) 176 mg/dL 70-110 H Lab Interpretation (test cod e = 38495-3) [facility] - Draw within 30 minutes prior to 03/20/23 @ 2000 3rd dose.2023-03-21 01:44:17* Test Item Value Reference Range Interpretation Comme nts VANCO TROUGH (test code = 1725787953) 12.2 ug/mL 10.0-20.0 LIEN (test code = LIEN) Toxic Range: ?>20 ug/mL 15-20 ug/mL is recommended for severe infection or when Vancomycin PRAKASH is greater than or equal to 2. Lab Interpretation (test code = 38997-7) Normal [facility] Level - Draw within 30 minutes prior to 03/20/23 @ 2000 3rd dose.2023-03-21 01:44:17* Test Item Value Reference Range Interpretation Comme nts VANCO TROUGH (test code = 0576184989) 12.2 ug/mL 10.0-20.0 LIEN (test code = LIEN) Toxic Range: ?>20 ug/mL 15-20 ug/mL is recommended for severe infection or when Vancomycin PRAKASH is greater than or equal to 2. Lab Interpretation (test code = 84257-4) Normal [facility] GLUCOSE (AUTOMATED)2023-03-21 01:22:29* Test Item Value Reference Range Interpretation Comme nts POCT GLU (test code = 2631909645) 256 mg/dL 70-110 H Lab Interpretation (test cod e = 48983-1) Abnormal [facility] GLUCOSE (AUTOMATED)2023-03-21 01:22:29* Test Item Value Reference Range Interpretation Comme nts POCT GLU (test code = 4492747517) 256 mg/dL 70-110 H Lab Interpretation (test cod e = 63588-6) Abnormal [facility] GLUCOSE (AUTOMATED)2023-03-20 21:47:01* Test Item Value Reference Range Interpretation Comme nts POCT GLU (test code = 9610163075) 260 mg/dL 70-110 H Lab Interpretation (test cod e = 15220-2) Abnormal [facility] GLUCOSE (AUTOMATED)2023-03-20 21:47:01* Test Item Value Reference Range Interpretation Comme nts POCT GLU (test code = 5563067367) 260 mg/dL 70-110 H Lab Interpretation (test cod e = 63630-0) Abnormal [facility] GLUCOSE (AUTOMATED)2023-03-20 18:29:33* Test Item Value Reference Range Interpretation Comme nts POCT GLU (test code = 7489477814) 126 mg/dL 70-110 H Lab Interpretation (test cod e = 65995-8) Abnormal [facility] GLUCOSE (AUTOMATED)2023-03-20 18:29:33* Test Item Value Reference Range Interpretation Comme nts POCT GLU (test code = 0478435607) 126 mg/dL 70-110 H Lab Interpretation (test cod e = 50461-3) Abnormal [facility] GLUCOSE (AUTOMATED)2023-03-20 13:06:50* Test Item Value Reference Range Interpretation Comme nts POCT GLU (test code = 5468514624) 153 mg/dL 70-110 H Lab Interpretation (test cod e = 16684-5) [facility] 13:06:50* Test Item Value Reference Range Interpretation Comme nts POCT GLU (test code = 3114680920) 153 mg/dL 70-110 H Lab Interpretation (test cod e = 93441-0) Abnormal [facility] GLUCOSE (AUTOMATED)2023-03-20 01:26:04* Test Item Value Reference Range Interpretation Comme nts POCT GLU (test code = 6155607314) 267 mg/dL 70-110 H Lab Interpretation (test cod e = 79584-7) Abnormal [facility] GLUCOSE (AUTOMATED)2023-03-20 01:26:04* Test Item Value Reference Range Interpretation Comme nts POCT GLU (test code = 8534006980) 267 mg/dL 70-110 H Lab Interpretation (test cod e = 96866-0) [facility] 21:49:02* Test Item Value Reference Range Interpretation Comme nts POCT GLU (test code = 2703326874) 226 mg/dL 70-110 H Lab Interpretation (test cod e = 83719-3) [facility]19 21:49:02* Test Item Value Reference Range Interpretation Comme nts POCT GLU (test code = 2840430189) 226 mg/dL 70-110 H Lab Interpretation (test cod e = 81394-6) [facility]19 16:37:57* Test Item Value Reference Range Interpretation Comme nts POCT GLU (test code = 6456154824) 198 mg/dL 70-110 H Lab Interpretation (test cod e = 53452-6) Abnormal [facility] GLUCOSE (AUTOMATED)2023-03-19 16:37:57* Test Item Value Reference Range Interpretation Comme nts POCT GLU (test code = 4230884910) 198 mg/dL 70-110 H Lab Interpretation (test cod e = 87121-9) Abnormal [facility] WITH [id number] 16:18:10* Test Item Value Reference Range Interpretation Comme nts WBC (test code = 6690-2) 16.72 See_Comment H [Automated message] The system which generated this result transmitted reference range: 4.30 - 11.10 10*3/?L. The reference range was not used to interpret this result as normal/abnormal. RBC (test code = 789-8) 3.29 See_Comment L [Automated message] The system which generated this result transmitted reference range: 3.93 - 5.25 10*6/?L. The reference range was not used to interpret this result as normal/abnormal. HGB (test code = 718-7) 8.8 g/dL 11.6-15.0 L HCT (test code = 4544-3) 27.2 % 35.7-45.2 L MCV (test code = 787-2) 82.7 fL 80.6-95.5 MCH (test code = 785-6) 26.7 pg 25.9-32.8 MCHC (test code = 786-4) 32.4 g/dL 31.6-35.1 RDW-SD (test code = 75213-2) 43.4 fL 39.0-49.9 RDW-CV (test code = 788-0) 14.3 % 12.0-15.5 PLT (test code = 777-3) 419 See_Comment H [Automated message] The system which generated this result transmitted reference range: 166 - 358 10*3/?L. The reference range was not used to interpret this result as normal/abnormal. MPV (test code = 69511-4) 9.1 fL 9.5-12.9 L NRBC/100 WBC (test code = 8517290945) 0.0 See_Comment [Automated message] The system which generated this result transmitted reference range: 0.0 - 10.0 /100 WBCs. The reference range was not used to interpret this result as normal/abnormal. NRBC x10^3 (test code = 7995000602) See_Comment [Automated message] The system which generated this result transmitted reference range: 10*3/?L. The reference range was not used to interpret this result as normal/abnormal. GRAN MAT (NEUT) % (test code = 770-8) 78.7 % IMM GRAN % (test code = 1429238541) 0.90 % LYMPH % (test code = 736-9) 11.7 % MONO % (test code = 5905-5) 7.0 % EOS % (test code = 713-8) 1.3 % BASO % (test code = 706-2) 0.4 % GRAN MAT x10^3(ANC) (test code = 1690167634) 13.17 10*3/uL 1.88-7.09 H IMM GRAN x10^3 (test code = 5637780229) 0.15 10*3/uL 0.00-0.06 H LYMPH x10^3 (test code = 731-0) 1.95 10*3/uL 1.32-3.29 MONO x10^3 (test code = 742-7) 1.17 10*3/uL 0.33-0.92 H EOS x10^3 (test code = 711-2) 0.22 10*3/uL 0.03-0.39 BASO x10^3 (test code = 704-7) 0.06 10*3/uL 0.01-0.07 Lab Interpretation (test code = 15262-2) Abnormal [facility] WITH [id number] 16:18:10* Test Item Value Reference Range Interpretation Comme nts WBC (test code = 6690-2) 16.72 See_Comment H [Automated message] The system which generated this result transmitted reference range: 4.30 - 11.10 10*3/?L. The reference range was not used to interpret this result as normal/abnormal. RBC (test code = 789-8) 3.29 See_Comment L [Automated message] The system which generated this result transmitted reference range: 3.93 - 5.25 10*6/?L. The reference range was not used to interpret this result as normal/abnormal. HGB (test code = 718-7) 8.8 g/dL 11.6-15.0 L HCT (test code = 4544-3) 27.2 % 35.7-45.2 L MCV (test code = 787-2) 82.7 fL 80.6-95.5 MCH (test code = 785-6) 26.7 pg 25.9-32.8 MCHC (test code = 786-4) 32.4 g/dL 31.6-35.1 RDW-SD (test code = 09680-6) 43.4 fL 39.0-49.9 RDW-CV (test code = 788-0) 14.3 % 12.0-15.5 PLT (test code = 777-3) 419 See_Comment H [Automated message] The system which generated this result transmitted reference range: 166 - 358 10*3/?L. The reference range was not used to interpret this result as normal/abnormal. MPV (test code = 72925-7) 9.1 fL 9.5-12.9 L NRBC/100 WBC (test code = 7161866384) 0.0 See_Comment [Automated message] The system which generated this result transmitted reference range: 0.0 - 10.0 /100 WBCs. The reference range was not used to interpret this result as normal/abnormal. NRBC x10^3 (test code = 9226820131) See_Comment [Automated message] The system which generated this result transmitted reference range: 10*3/?L. The reference range was not used to interpret this result as normal/abnormal. GRAN MAT (NEUT) % (test code = 770-8) 78.7 % IMM GRAN % (test code = 9765057723) 0.90 % LYMPH % (test code = 736-9) 11.7 % MONO % (test code = 5905-5) 7.0 % EOS % (test code = 713-8) 1.3 % BASO % (test code = 706-2) 0.4 % GRAN MAT x10^3(ANC) (test code = 1104715264) 13.17 10*3/uL 1.88-7.09 H IMM GRAN x10^3 (test code = 2863892060) 0.15 10*3/uL 0.00-0.06 H LYMPH x10^3 (test code = 731-0) 1.95 10*3/uL 1.32-3.29 MONO x10^3 (test code = 742-7) 1.17 10*3/uL 0.33-0.92 H EOS x10^3 (test code = 711-2) 0.22 10*3/uL 0.03-0.39 BASO x10^3 (test code = 704-7) 0.06 10*3/uL 0.01-0.07 Lab Interpretation (test code = 06868-0) Abnormal [facility] METABOLIC PANEL (NA, K, CL, CO2, GLUCOSE, BUN, CREATININE, CA)2023-03-19 16:14:05* Test Item Value Reference Range Interpretation Comme nts NA (test code = 5872545963) 136 mmol/L 135-145 K (test code = 5341605129) 4.7 mmol/L 3.5-5.0 CL (test code = 6138665823) 108 mmol/L 98-108 CO2 TOTAL (test code = 3071168539) 21 mmol/L 23-31 L AGAP (test code = 0759738227) 7 2-16 BUN (test code = 7272501692) 31 mg/dL 7-23 H GLUCOSE (test code = 9591599414) 158 mg/dL 70-110 H CREATININE (test code = 5343978820) 1.20 mg/dL 0.50-1.04 H CALCIUM (test code = 1770122579) 8.0 mg/dL 8.6-10.6 L eGFR (test code = 6176835126) 47.7 mL/min/1.73m2 LIEN (test code = LIEN) Association of [...] or abnormalities in imaging tests). Lab Interpretation (test code = 86361-9) Abnormal [facility] METABOLIC PANEL (NA, K, CL, CO2, GLUCOSE, BUN, CREATININE, CA)2023-03-19 16:14:05* Test Item Value Reference Range Interpretation Comme nts NA (test code = 8851082119) 136 mmol/L 135-145 K (test code = 6396830797) 4.7 mmol/L 3.5-5.0 CL (test code = 3656043704) 108 mmol/L 98-108 CO2 TOTAL (test code = 8675205777) 21 mmol/L 23-31 L AGAP (test code = 3187304664) 7 2-16 BUN (test code = 5722786794) 31 mg/dL 7-23 H GLUCOSE (test code = 7139356636) 158 mg/dL 70-110 H CREATININE (test code = 9109281725) 1.20 mg/dL 0.50-1.04 H CALCIUM (test code = 5072954806) 8.0 mg/dL 8.6-10.6 L eGFR (test code = 7315277340) 47.7 mL/min/1.73m2 LIEN (test code = LIEN) Association of [...] or abnormalities in imaging tests). Lab Interpretation (test code = 80282-3) Abnormal [facility] GLUCOSE (AUTOMATED)2023-03-19 12:34:18* Test Item Value Reference Range Interpretation Comme nts POCT GLU (test code = 8251094192) 111 mg/dL 70-110 H Lab Interpretation (test cod e = 13353-5) Abnormal [facility] GLUCOSE (AUTOMATED)2023-03-19 12:34:18* Test Item Value Reference Range Interpretation Comme nts POCT GLU (test code = 1509387646) 111 mg/dL 70-110 H Lab Interpretation (test cod e = 36722-9) Abnormal [facility] GLUCOSE (AUTOMATED)2023-03-19 03:29:06* Test Item Value Reference Range Interpretation Comme nts POCT GLU (test code = 7533060022) 80 mg/dL 70-110 Lab Interpretation (test cod e = 05638-0) Normal [facility] GLUCOSE (AUTOMATED)2023-03-19 03:29:06* Test Item Value Reference Range Interpretation Comme nts POCT GLU (test code = 7910976410) 80 mg/dL 70-110 Lab Interpretation (test cod e = 68027-5) [facility]23-03-19 01:51:17* Test Item Value Reference Range Interpretation Comme nts HGB A1C (test code = 4548-4) 6.4 % 4.0-5.7 H LIEN (test code = LIEN) Reference RangesNormal: <5.7%Prediabetes: 5.7 - 6.4%Diabetes: > 6.5% Lab Interpretation (test code = 30980-3) [facility]2023-03-19 01:51:17* Test Item Value Reference Range Interpretation Comme nts HGB A1C (test code = 4548-4) 6.4 % 4.0-5.7 H LIEN (test code = LIEN) Reference RangesNormal: <5.7%Prediabetes: 5.7 - 6.4%Diabetes: > 6.5% Lab Interpretation (test code = 36090-6) [facility] WITH [id number] 00:36:03* Test Item Value Reference Range Interpretation Comme nts WBC (test code = 6690-2) 25.56 See_Comment H [Automated message] The system which generated this result transmitted reference range: 4.30 - 11.10 10*3/?L. The reference range was not used to interpret this result as normal/abnormal. RBC (test code = 789-8) 3.58 See_Comment L [Automated message] The system which generated this result transmitted reference range: 3.93 - 5.25 10*6/?L. The reference range was not used to interpret this result as normal/abnormal. HGB (test code = 718-7) 9.7 g/dL 11.6-15.0 L HCT (test code = 4544-3) 29.9 % 35.7-45.2 L MCV (test code = 787-2) 83.5 fL 80.6-95.5 MCH (test code = 785-6) 27.1 pg 25.9-32.8 MCHC (test code = 786-4) 32.4 g/dL 31.6-35.1 RDW-SD (test code = 46353-2) 44.2 fL 39.0-49.9 RDW-CV (test code = 788-0) 14.4 % 12.0-15.5 PLT (test code = 777-3) 480 See_Comment H [Automated message] The system which generated this result transmitted reference range: 166 - 358 10*3/?L. The reference range was not used to interpret this result as normal/abnormal. MPV (test code = 49964-0) 9.4 fL 9.5-12.9 L NRBC/100 WBC (test code = 7865287556) 0.0 See_Comment [Automated message] The system which generated this result transmitted reference range: 0.0 - 10.0 /100 WBCs. The reference range was not used to interpret this result as normal/abnormal. NRBC x10^3 (test code = 9311804978) See_Comment [Automated message] The system which generated this result transmitted reference range: 10*3/?L. The reference range was not used to interpret this result as normal/abnormal. SEG % (test code = 75853-8) 72 % 33-76 BAND % (test code = 90231-5) 7 % 0-1 H LYMPH % (test code = 93170-1) 14 % 14-54 MONO % (test code = 77681-3) 6 % 0-4 H EOS % (test code = 37845-6) 1 % 0-3 ANC (test code = 753-4) 20.19 10*3/uL 1.88-7.09 H Lab Interpretation (test code = 22993-2) Abnormal [facility] WITH [id number] 00:36:03* Test Item Value Reference Range Interpretation Comme nts WBC (test code = 6690-2) 25.56 See_Comment H [Automated message] The system which generated this result transmitted reference range: 4.30 - 11.10 10*3/?L. The reference range was not used to interpret this result as normal/abnormal. RBC (test code = 789-8) 3.58 See_Comment L [Automated message] The system which generated this result transmitted reference range: 3.93 - 5.25 10*6/?L. The reference range was not used to interpret this result as normal/abnormal. HGB (test code = 718-7) 9.7 g/dL 11.6-15.0 L HCT (test code = 4544-3) 29.9 % 35.7-45.2 L MCV (test code = 787-2) 83.5 fL 80.6-95.5 MCH (test code = 785-6) 27.1 pg 25.9-32.8 MCHC (test code = 786-4) 32.4 g/dL 31.6-35.1 RDW-SD (test code = 88374-4) 44.2 fL 39.0-49.9 RDW-CV (test code = 788-0) 14.4 % 12.0-15.5 PLT (test code = 777-3) 480 See_Comment H [Automated message] The system which generated this result transmitted reference range: 166 - 358 10*3/?L. The reference range was not used to interpret this result as normal/abnormal. MPV (test code = 17699-6) 9.4 fL 9.5-12.9 L NRBC/100 WBC (test code = 1243730172) 0.0 See_Comment [Automated message] The system which generated this result transmitted reference range: 0.0 - 10.0 /100 WBCs. The reference range was not used to interpret this result as normal/abnormal. NRBC x10^3 (test code = 2717505976) See_Comment [Automated message] The system which generated this result transmitted reference range: 10*3/?L. The reference range was not used to interpret this result as normal/abnormal. SEG % (test code = 82450-8) 72 % 33-76 BAND % (test code = 33120-0) 7 % 0-1 H LYMPH % (test code = 13016-8) 14 % 14-54 MONO % (test code = 68687-4) 6 % 0-4 H EOS % (test code = 26485-7) 1 % 0-3 ANC (test code = 753-4) 20.19 10*3/uL 1.88-7.09 H Lab Interpretation (test code = 07175-1) Abnormal [facility]. METABOLIC PANEL (89033)2023-03-19 00:09:19* Test Item Value Reference Range Interpretation Comme nts NA (test code = 2280255410) 136 mmol/L 135-145 K (test code = 2948542561) 5.3 mmol/L 3.5-5.0 H CL (test code = 2138168946) 104 mmol/L 98-108 CO2 TOTAL (test code = 1792024842) 21 mmol/L 23-31 L AGAP (test code = 6258673158) 11 2-16 BUN (test code = 4499950823) 41 mg/dL 7-23 H GLUCOSE (test code = 1279886147) 66 mg/dL 70-110 L CREATININE (test code = 7265182157) 1.47 mg/dL 0.50-1.04 H TOTAL BILI (test code = 4518270621) 0.4 mg/dL 0.1-1.1 CALCIUM (test code = 7961708010) 8.5 mg/dL 8.6-10.6 L T PROTEIN (test code = 1159873904) 7.5 g/dL 6.3-8.2 ALBUMIN (test code = 8491956583) 3.7 g/dL 3.5-5.0 ALK PHOS (test code = 4328945157) 99 U/L 34-122 ALTv (test code = 1742-6) 16 U/L 5-35 AST(SGOT) (test code = 7794941221) 16 U/L 13-40 eGFR (test code = 1425923607) 37.8 mL/min/1.73m2 LIEN (test code = LIEN) Association of [...] or abnormalities in imaging tests). Lab Interpretation (test code = 01161-9) Abnormal [facility]. METABOLIC PANEL (57285)2023-03-19 00:09:19* Test Item Value Reference Range Interpretation Comme nts NA (test code = 1654057090) 136 mmol/L 135-145 K (test code = 7426601573) 5.3 mmol/L 3.5-5.0 H CL (test code = 9163732345) 104 mmol/L 98-108 CO2 TOTAL (test code = 4156877689) 21 mmol/L 23-31 L AGAP (test code = 7802011503) 11 2-16 BUN (test code = 8554086513) 41 mg/dL 7-23 H GLUCOSE (test code = 6266539973) 66 mg/dL 70-110 L CREATININE (test code = 7386709808) 1.47 mg/dL 0.50-1.04 H TOTAL BILI (test code = 3235436625) 0.4 mg/dL 0.1-1.1 CALCIUM (test code = 3292620279) 8.5 mg/dL 8.6-10.6 L T PROTEIN (test code = 2067168847) 7.5 g/dL 6.3-8.2 ALBUMIN (test code = 1456738380) 3.7 g/dL 3.5-5.0 ALK PHOS (test code = 4459230826) 99 U/L 34-122 ALTv (test code = 1742-6) 16 U/L 5-35 AST(SGOT) (test code = 9021310756) 16 U/L 13-40 eGFR (test code = 1668187950) 37.8 mL/min/1.73m2 LIEN (test code = LIEN) Association of [...] or abnormalities in imaging tests). Lab Interpretation (test code = 90203-6) Abnormal [facility] GLUCOSE (AUTOMATED)2022-12-25 17:15:52* Test Item Value Reference Range Interpretation Comme nts POCT GLU (test code = 3645146831) 255 mg/dL 70-110 H Lab Interpretation (test cod e = 64567-7) Abnormal [facility] GLUCOSE (AUTOMATED)2022-12-25 13:44:51* Test Item Value Reference Range Interpretation Comme nts POCT GLU (test code = 7050882773) 246 mg/dL 70-110 H Lab Interpretation (test cod e = 57216-3) Abnormal [facility] GLUCOSE (AUTOMATED)2022-12-25 02:05:37* Test Item Value Reference Range Interpretation Comme nts POCT GLU (test code = 7577628721) 180 mg/dL 70-110 H Lab Interpretation (test cod e = 57157-5) Abnormal [facility] GLUCOSE (AUTOMATED)2022-12-24 22:13:36* Test Item Value Reference Range Interpretation Comme [facility] POCT GLU (test code = 6589050248) 68 mg/dL 70-110 L Lab Interpretation (test cod e = 10915-6) Abnormal [facility] GLUCOSE (AUTOMATED)2022-12-24 17:59:23* Test Item Value Reference Range Interpretation Comme [facility] POCT GLU (test code = 9241254583) 247 mg/dL 70-110 H Lab Interpretation (test cod e = 74559-2) Abnormal [facility] GLUCOSE (AUTOMATED)2022-12-24 13:07:03* Test Item Value Reference Range Interpretation Comme [facility] POCT GLU (test code = 7060599815) 316 mg/dL 70-110 H Lab Interpretation (test cod e = 71012-8) Abnormal [facility] METABOLIC PANEL (NA, K, CL, CO2, GLUCOSE, BUN, CREATININE, CA)2022-12-24 11:05:59* Test Item Value Reference Range Interpretation Comme [facility] NA (test code = 8909075989) 133 mmol/L 135-145 L K (test code = 1693418073) 4.9 mmol/L 3.5-5.0 CL (test code = 5538078874) 104 mmol/L 98-108 CO2 TOTAL (test code = 8520239898) 21 mmol/L 23-31 L AGAP (test code = 0302483598) 8 2-16 BUN (test code = 5618495555) 19 mg/dL 7-23 GLUCOSE (test code = 1136566360) 299 mg/dL 70-110 H CREATININE (test code = 8844466573) 1.12 mg/dL 0.50-1.04 H CALCIUM (test code = 6793426786) 8.4 mg/dL 8.6-10.6 L eGFR (test code = 2642412166) 51.7 mL/min/1.73m2 LIEN (test code = LIEN) Association of [...] or abnormalities in imaging tests). Lab Interpretation (test code = 11699-5) Abnormal [facility] Lipd Panel (38110)(TOTAL CHOLESTEROL, TRIGLYCERIDES, HDL)2022-12-24 11:02:21* Test Item Value Reference Range Interpretation Comme nts CHOL (test code = 4306900364) 153 mg/dL 120-200 HDL (test code = 5770201267) 26 mg/dL >=50 L HDLC RATIO (test code = 4341614394) 5.9 <=4.5 H TRIG (test code = 7230618341) 205 mg/dL 30-170 H LDL CHOL (test code = 55730-9) 86 mg/dL <=160 VLDL (test code = 2466731161) 41 mg/dL 5-60 Lab Interpretation (test cod e = 25641-4) [facility] 04:14:31* Test Item Value Reference Range Interpretation Comme [facility] POCT GLU (test code = 6998265742) 212 mg/dL 70-110 H Lab Interpretation (test cod e = 15243-0) [facility]normal [facility] (A1C)2022-12-24 02:31:39* Test Item Value Reference Range Interpretation Comme [facility] HGB A1C (test code = 4548-4) 4.0-5.7 H LINE (test code = LIEN) Reference RangesNormal: <5.7%Prediabetes: 5.7 - 6.4%Diabetes: > 6.5% Lab Interpretation (test code = 47473-4) Abnormal [facility] GLUCOSE (AUTOMATED)2022-12-24 02:09:23* Test Item Value Reference Range Interpretation Comme [facility] POCT GLU (test code = 5803567300) 253 mg/dL 70-110 H Lab Interpretation (test cod e = 93747-7) Abnormal [facility] GLUCOSE (AUTOMATED)2022-12-24 00:19:50* Test Item Value Reference Range Interpretation Comme [facility] POCT GLU (test code = 4412256891) 376 mg/dL 70-110 H Lab Interpretation (test cod e = 70192-6) Abnormal [facility] GLUCOSE (AUTOMATED)2022-12-23 23:38:15* Test Item Value Reference Range Interpretation Comme [facility] POCT GLU (test code = 5414630875) 493 mg/dL 70-110 HH Lab Interpretation (test cod e = 69308-2) Abnormal [facility] [id number] 22:04:10* Test Item Value Reference Range Interpretation Comme [facility] TROPONIN I (test code = 2853020799) 0.007 ng/mL <=0.034 LIEN (test code = LIEN) Reference (Normal) Range (defined by the 99th percentile reference [...] to patient's use of biotin. Lab Interpretation (test code = 98286-9) Normal [id number] 22:01:29* Test Item Value Reference Range Interpretation Comme nts NT-proBNP (test code = 7219068660) 283 pg/mL <=125 H LIEN (test code = LIEN) Biotin has been reported to cause a negative bias, interpret results relative to patient's use of biotin. Lab Interpretation (test code = 47187-3) Abnormal [facility]. METABOLIC PANEL (09754)2022-12-23 22:00:27* Test Item Value Reference Range Interpretation Comme nts NA (test code = 7299778253) 134 mmol/L 135-145 L K (test code = 8934087635) 5.9 mmol/L 3.5-5.0 H CL (test code = 9700345098) 98 mmol/L 98-108 CO2 TOTAL (test code = 8955226644) 24 mmol/L 23-31 AGAP (test code = 9714846733) 12 2-16 BUN (test code = 6256719217) 23 mg/dL 7-23 GLUCOSE (test code = 3708260106) 489 mg/dL 70-110 HH CREATININE (test code = 2048727087) 1.26 mg/dL 0.50-1.04 H TOTAL BILI (test code = 8808140102) 0.5 mg/dL 0.1-1.1 CALCIUM (test code = 0066121213) 9.2 mg/dL 8.6-10.6 T PROTEIN (test code = 1984862317) 6.4 g/dL 6.3-8.2 ALBUMIN (test code = 6336191799) 3.6 g/dL 3.5-5.0 ALK PHOS (test code = 3135061778) 77 U/L 34-122 ALTv (test code = 1742-6) 16 U/L 5-35 AST(SGOT) (test code = 3946974907) 21 U/L 13-40 eGFR (test code = 7276273558) 45.1 mL/min/1.73m2 LIEN (test code = LIEN) Association of [...] or abnormalities in imaging tests). Lab Interpretation (test code = 52428-4) Abnormal [facility] HospitalETHANOL2023-[facility]-13 21:57:59 ALCOHOL<10mg/dL12/23/2022 4:57 PM [facility]<10 [id number] Toxic>100 Depression of MAINFRAME DEVELOPER>400 Fatalities ReportedSouth [facility] Spine & Surgical HospitalACTIVATED PARTIAL THRMPLAS [id number] 21:50:48* Test Item Value Reference Range Interpretation Comme [facility] APTT Patient (test code = 3173-2) 25 See_Comment [Automated message] The system which generated this result transmitted reference range: 23 - 38 Seconds. The reference range was not used to interpret this result as normal/abnormal. LIEN (test code = LIEN) The [facility] patient population mean normal value for aPTT is 30 seconds. Lab Interpretation (test code = 52685-1) Normal [facility] HospitalPROTHROMBIN TIME / [id number] 21:48:46* Test Item Value Reference Range Interpretation Comme nts PROTIME PATIENT (test code = 5964-2) 12.4 See_Comment [Automated messa ge] The system which generated this result transmitted reference range: 12.0 - 14.7 Seconds. The reference range was not used to interpret this result as normal/abnormal. INR (test code = 6301-6) 1.0 Normal INR <1.1; Warfarin Therapeutic range 2.0 to 3.0 or 2.5 to 3.5, depending upon the indications. Lab Interpretation (test code = 12744-4) Normal [facility] WITH [id number] 21:41:30* Test Item Value Reference Range Interpretation Comme nts WBC (test code = 6690-2) 10.76 See_Comment [Automated T-VIPS[employer] Grid2020] The system which generated this result transmitted reference range: 4.30 - 11.10 10*3/?L. The reference range was not used to interpret this result as normal/abnormal. RBC (test code = 789-8) 4.76 See_Comment [Automated messa ge] The system which generated this result transmitted reference range: 3.93 - 5.25 10*6/?L. The reference range was not used to interpret this result as normal/abnormal. HGB (test code = 718-7) 12.6 g/dL 11.6-15.0 HCT (test code = 4544-3) 37.6 % 35.7-45.2 MCV (test code = 787-2) 79.0 fL 80.6-95.5 L MCH (test code = 785-6) 26.5 pg 25.9-32.8 MCHC (test code = 786-4) 33.5 g/dL 31.6-35.1 RDW-SD (test code = 68041-6) 36.5 fL 39.0-49.9 L RDW-CV (test code = 788-0) 12.9 % 12.0-15.5 PLT (test code = 777-3) 412 See_Comment H [Automated messa ge] The system which generated this result transmitted reference range: 166 - 358 10*3/?L. The reference range was not used to interpret this result as normal/abnormal. MPV (test code = 45566-6) 8.8 fL 9.5-12.9 L NRBC/100 WBC (test code = 5054453530) 0.0 See_Comment [Automated me ssage] The system which generated this result transmitted reference range: 0.0 - 10.0 /100 WBCs. The reference range was not used to interpret this result as normal/abnormal. NRBC x10^3 (test code = 3289763023) See_Comment [Automated messa ge] The system which generated this result transmitted reference range: 10*3/?L. The reference range was not used to interpret this result as normal/abnormal. GRAN MAT (NEUT) % (test code = 770-8) 61.1 % IMM GRAN % (test code = 5933836902) 0.90 % LYMPH % (test code = 736-9) 28.5 % MONO % (test code = 5905-5) 5.9 % EOS % (test code = 713-8) 2.9 % BASO % (test code = 706-2) 0.7 % GRAN MAT x10^3(ANC) (test code = 4232047182) 6.57 10*3/uL 1.88-7.09 IMM GRAN x10^3 (test code = 3483915842) 0.10 10*3/uL 0.00-0.06 H LYMPH x10^3 (test code = 731-0) 3.07 10*3/uL 1.32-3.29 MONO x10^3 (test code = 742-7) 0.63 10*3/uL 0.33-0.92 EOS x10^3 (test code = 711-2) 0.31 10*3/uL 0.03-0.39 BASO x10^3 (test code = 704-7) 0.08 10*3/uL 0.01-0.07 H Lab Interpretation (test code = 37619-6) Abnormal [facility] GLUCOSE (AUTOMATED)2022-12-10 23:05:12* Test Item Value Reference Range Interpretation Comme [facility] POCT GLU (test code = 7470394861) 251 mg/dL 70-110 H Lab Interpretation (test cod e = 77884-3) Abnormal [facility] GLUCOSE (AUTOMATED)2022-12-10 22:28:43* Test Item Value Reference Range Interpretation Comme [facility] POCT GLU (test code = 3526979532) 383 mg/dL 70-110 H Lab Interpretation (test cod e = 50957-1) Abnormal [facility] GLUCOSE (AUTOMATED)2022-12-10 21:26:50* Test Item Value Reference Range Interpretation Comme nts POCT GLU (test code = 1199519196) 570 mg/dL 70-110 HH Notified Provide r Lab Interpretation (test code = 56603-5) Abnormal [facility] GLUCOSE (AUTOMATED)2022-12-10 21:21:29* Test Item Value Reference Range Interpretation Comme [facility] POCT GLU (test code = 4563369431) 70-110 HH Lab Interpretation (test cod e = 88171-0) Abnormal [facility]. METABOLIC PANEL (84558)2022-12-10 20:39:30* Test Item Value Reference Range Interpretation Comme nts NA (test code = 2363890095) 126 mmol/L 135-145 L K (test code = 9064654486) 4.4 mmol/L 3.5-5.0 CL (test code = 9282669218) 92 mmol/L 98-108 L CO2 TOTAL (test code = 6206509670) 22 mmol/L 23-31 L AGAP (test code = 8046273282) 12 2-16 BUN (test code = 4543663900) 12 mg/dL 7-23 GLUCOSE (test code = 5116767862) 716 mg/dL 70-110 HH CREATININE (test code = 6849008154) 0.92 mg/dL 0.50-1.04 TOTAL BILI (test code = 9708911124) 0.5 mg/dL 0.1-1.1 CALCIUM (test code = 5601618342) 9.2 mg/dL 8.6-10.6 T PROTEIN (test code = 1171828979) 6.2 g/dL 6.3-8.2 L ALBUMIN (test code = 5368088996) 3.5 g/dL 3.5-5.0 ALK PHOS (test code = 3347659722) 126 U/L 34-122 H ALTv (test code = 1742-6) 32 U/L 5-35 AST(SGOT) (test code = 0193264385) 26 U/L 13-40 eGFR (test code = 9061317126) 64.9 mL/min/1.73m2 LIEN (test code = LIEN) Association of [...] or abnormalities in imaging tests). Lab Interpretation (test code = 95288-8) Abnormal [facility] THRMPLAS [id number] 20:34:12* Test Item Value Reference Range Interpretation Comme [facility] APTT Patient (test code = 3173-2) 25 See_Comment [Automated message] The system which generated this result transmitted reference range: 23 - 38 Seconds. The reference range was not used to interpret this result as normal/abnormal. LIEN (test code = LIEN) The [facility] patient population mean normal value for aPTT is 30 seconds. Lab Interpretation (test code = 40003-8) Normal [facility] HospitalProthrombin Time / [id number] 20:32:10* Test Item Value Reference Range Interpretation Comme nts PROTIME PATIENT (test code = 5964-2) 12.4 See_Comment [Automated messa ge] The system which generated this result transmitted reference range: 12.0 - 14.7 Seconds. The reference range was not used to interpret this result as normal/abnormal. INR (test code = 6301-6) 1.0 Normal INR <1.1; Warfarin Therapeutic range 2.0 to 3.0 or 2.5 to 3.5, depending upon the indications. Lab Interpretation (test code = 53399-7) Normal [facility] HospitalETHANOL2023-05-[facility] 20:25:40 ALCOHOL<10mg/dL12/10/2022 3:25 PM [facility]<10 [id number] Toxic>100 Depression of MAINFRAME DEVELOPER>400 Fatalities ReportedSouth [facility]ine & Surgical HospitalCB WITH [id number] 20:14:44* Test Item Value Reference Range Interpretation Comme nts WBC (test code = 6690-2) 14.72 See_Comment H [Automated messa ge] The system which generated this result transmitted reference range: 4.30 - 11.10 10*3/?L. The reference range was not used to interpret this result as normal/abnormal. RBC (test code = 789-8) 4.65 See_Comment [Automated messa ge] The system which generated this result transmitted reference range: 3.93 - 5.25 10*6/?L. The reference range was not used to interpret this result as normal/abnormal. HGB (test code = 718-7) 12.6 g/dL 11.6-15.0 HCT (test code = 4544-3) 36.4 % 35.7-45.2 MCV (test code = 787-2) 78.3 fL 80.6-95.5 L MCH (test code = 785-6) 27.1 pg 25.9-32.8 MCHC (test code = 786-4) 34.6 g/dL 31.6-35.1 RDW-SD (test code = 03145-1) 36.6 fL 39.0-49.9 L RDW-CV (test code = 788-0) 12.9 % 12.0-15.5 PLT (test code = 777-3) 485 See_Comment H [Automated messa ge] The system which generated this result transmitted reference range: 166 - 358 10*3/?L. The reference range was not used to interpret this result as normal/abnormal. MPV (test code = 43546-1) 9.0 fL 9.5-12.9 L NRBC/100 WBC (test code = 3069295580) 0.0 See_Comment [Automated [employer] ssage] The system which generated this result transmitted reference range: 0.0 - 10.0 /100 WBCs. The reference range was not used to interpret this result as normal/abnormal. NRBC x10^3 (test code = 9103679735) See_Comment [Automated messa ge] The system which generated this result transmitted reference range: 10*3/?L. The reference range was not used to interpret this result as normal/abnormal. GRAN MAT (NEUT) % (test code = 770-8) 66.5 % IMM GRAN % (test code = 1545760367) 1.80 % LYMPH % (test code = 736-9) 24.6 % MONO % (test code = 5905-5) 4.6 % EOS % (test code = 713-8) 1.5 % BASO % (test code = 706-2) 1.0 % GRAN MAT x10^3(ANC) (test code = 8202228378) 9.80 10*3/uL 1.88-7.09 H IMM GRAN x10^3 (test code = 8979721789) 0.27 10*3/uL 0.00-0.06 H LYMPH x10^3 (test code = 731-0) 3.62 10*3/uL 1.32-3.29 H MONO x10^3 (test code = 742-7) 0.67 10*3/uL 0.33-0.92 EOS x10^3 (test code = 711-2) 0.22 10*3/uL 0.03-0.39 BASO x10^3 (test code = 704-7) 0.14 10*3/uL 0.01-0.07 H Lab Interpretation (test code = 61870-2) [facility]normal [facility]2022-11-24 18:29:07* Test Item Value Reference Range Interpretation Comme nts HGB A1C (test code = 4548-4) 4.0-5.7 H LIEN (test code = LIEN) Reference RangesNormal: <5.7%Prediabetes: 5.7 - 6.4%Diabetes: > 6.5% Lab Interpretation (test code = 73225-3) Abnormal [facility] CALCIUM [id number] 18:45:16* Test Item Value Reference Range Interpretation Comme nts PTH-INTACT (test code = 8787136206) 70.0 pg/mL PTH-CA Interpretation (test code = 7874946998) PTH IS Appropria te for Calcium CALCIUM (test code = 0016002891) 9.5 mg/dL 8.6-10.6 [facility] (A1C)2022-04-17 16:07:25* Test Item Value Reference Range Interpretation Comme [facility] HGB A1C (test code = 4548-4) 6.4 % 4-5.7 H LIEN (test code = LIEN) Reference RangesNormal: <5.7%Prediabetes: 5.7 - 6.4%Diabetes: > 6.5% Lab Interpretation (test code = 66215-7) Abnormal [facility]A1C)2022-04-17 16:07:25* Test Item Value Reference Range Interpretation Comme [facility] HGB A1C (test code = 4548-4) 6.4 % 4-5.7 H LIEN (test code = LIEN) Reference RangesNormal: <5.7%Prediabetes: 5.7 - 6.4%Diabetes: > 6.5% Lab Interpretation (test code = 12514-6) [facility]normal [facility]OLIC PANEL (NA, K, CL, CO2, GLUCOSE, BUN, CREATININE, CA)2022-04-17 16:07:09* Test Item Value Reference Range Interpretation Comme nts NA (test code = 7858096536) 141 mmol/L 135-145 K (test code = 8479002893) 6.5 mmol/L 3.5-5 HH CL (test code = 8558424930) 103 mmol/L 98-108 CO2 TOTAL (test code = 0508606572) 25 mmol/L 23-31 AGAP (test code = 8092455081) 2-16 BUN (test code = 4885962740) 47 mg/dL 7-23 H GLUCOSE (test code = 4498708823) 124 mg/dL 70-110 H CREATININE (test code = 0026180375) 2.07 mg/dL 0.5-1.04 H CALCIUM (test code = 8791053529) 9.5 mg/dL 8.6-10.6 eGFR (test code = 0652624023) mL/min/1.73m2 LIEN (test code = LIEN) Association of [...] or abnormalities in imaging tests). Lab Interpretation (test code = 05443-7) Abnormal [facility] METABOLIC PANEL (NA, K, CL, CO2, GLUCOSE, BUN, CREATININE, CA)2022-04-17 16:07:09* Test Item Value Reference Range Interpretation Comme nts NA (test code = 4482570347) 141 mmol/L 135-145 K (test code = 9359047913) 6.5 mmol/L 3.5-5 HH CL (test code = 5017757283) 103 mmol/L 98-108 CO2 TOTAL (test code = 5529747478) 25 mmol/L 23-31 AGAP (test code = 0107984161) 2-16 BUN (test code = 3824767328) 47 mg/dL 7-23 H GLUCOSE (test code = 7866546792) 124 mg/dL 70-110 H CREATININE (test code = 8228558325) 2.07 mg/dL 0.5-1.04 H CALCIUM (test code = 9936999081) 9.5 mg/dL 8.6-10.6 eGFR (test code = 8195970500) mL/min/1.73m2 LIEN (test code = LIEN) Association of [...] or abnormalities in imaging tests). Lab Interpretation (test code = 97396-1) [facility]:04* Test Item Value Reference Range Interpretation Comme nts MAGNESIUM (test code = 4650072438) 1.5 mg/dL 1.7-2.4 L Lab Interpretation (test cod e = 30147-4) Abnormal [facility]20[facility] 16:02:04* Test Item Value Reference Range Interpretation Comme nts MAGNESIUM (test code = 3585533077) 1.5 mg/dL 1.7-2.4 L Lab Interpretation (test cod e = 44140-7) Abnormal [facility]2022-10-06 16:01:47* Test Item Value Reference Range Interpretation Comme nts PHOSPHORUS (test code = 3233124379) 4.5 mg/dL 2.5-5 Lab Interpretation (test cod e = 24805-5) Normal [facility]22-[facility] 16:01:47* Test Item Value Reference Range Interpretation Comme nts PHOSPHORUS (test code = 1196113351) 4.5 mg/dL 2.5-5 Lab Interpretation (test cod e = 24415-3) Normal [facility] WITHOUT [id number] 15:05:42* Test Item Value Reference Range Interpretation Comme nts WBC (test code = 6690-2) See_Comment [Automated message] The system which generated this result transmitted reference range: 4.30 - 11.10 10*3/?L. The reference range was not used to interpret this result as normal/abnormal. RBC (test code = 789-8) See_Comment L [Automated message] The system which generated this result transmitted reference range: 3.93 - 5.25 10*6/?L. The reference range was not used to interpret this result as normal/abnormal. HGB (test code = 718-7) 7.9 g/dL 11.6-15 L HCT (test code = 4544-3) 26.4 % 35.7-45.2 L MCH (test code = 785-6) 27.8 pg 25.9-32.8 MCV (test code = 787-2) 93.0 fL 80.6-95.5 MCHC (test code = 786-4) 29.9 g/dL 31.6-35.1 L PLT (test code = 777-3) See_Comment H [Automated message] The system which generated this result transmitted reference range: 166 - 358 10*3/?L. The reference range was not used to interpret this result as normal/abnormal. MPV (test code = 49672-6) 8.5 fL 9.5-12.9 L RDW-CV (test code = 788-0) 17.9 % 12-15.5 H RDW-SD (test code = 86130-6) 59.2 fL 39-49.9 H NRBC x10^3 (test code = 5137990000) See_Comment [Automated messa ge] The system which generated this result transmitted reference range: 10*3/?L. The reference range was not used to interpret this result as normal/abnormal. NRBC/100 WBC (test code = 1463421343) See_Comment [Automated messa ge] The system which generated this result transmitted reference range: 0.0 - 10.0 /100 WBCs. The reference range was not used to interpret this result as normal/abnormal. IPF % (test code = 4796477640) Lab Interpretation (test code = 22478-5) Abnormal [facility] Consult Notes Date/Time Note Provider Source 2023-03-19 00:09:00 Formatting of this n ote might be different from the original. CHIEF COMPLAINT/HISTORY OF PRESENT ILLNESS: The patient was admitted through the ED last evening with complaints of left foot pain and drainage for 4 days, denies any trauma, no nausea, fever, chills, vomiting. The patient noted drainage of unknown etiology, has a previous history of right below-knee amputation. PAST MEDICAL HISTORY: Significant for anxiety and depression, asthma, CKD, diabetes mellitus, hypertension, kidney removal, right BKA. PAST SURGICAL HISTORY: Right BKA, , tubal ligation and kidney. FAMILY HISTORY: In chart. ALLERGIES: Amoxicillin, aspirin, Benadryl, Cipro penicillin, tramadol, mushroom. MEDICATIONS: In chart. LOWER EXTREMITY PHYSICAL EXAM: ORTHOPEDIC: Exam reveals BKA, right lower extremity. Normal orthopedic exam of the left lower extremity. NEUROLOGIC: Exam reveals absent proprioceptive and protective sensations to the left lower extremity. VASCULAR: Exam reveals palpable posterior tibial pulse, nonpalpable dorsalis pedis pulse of the left lower extremity. DERMATOLOGIC: Exam reveals edema and erythema of the dorsal aspect of the left foot with an abscess noted dorsally and bulla formation proximal and lateral. The edematous area of the dorsal aspect is noted have fluctuance and pain on palpation no purulence expressed. PROCEDURE: At this time an I and D were performed at bedside without anesthesia, tolerated well by the patient, with an 11 blade a small stab incision with copious amounts of purulence being expressed from this area. This was expressed and irrigated multiple times until there was no purulent drainage. Following this the wound was packed with saline-moistened gauze, cultures were taken before irrigation, and a dressing consisting of 4 x 4's, Kerlix and an Basil wrap was applied to left lower extremity. ASSESSMENT: Abscess/cellulitis, left dorsal foot. PLAN: 1. MRI of the left foot to evaluate for osteomyelitis. 2. I and D performed as described above. 3. Continue current IV antibiotics. 4. Wound culture performed. 5. Arterial Doppler to the left lower extremity to evaluate for peripheral vascular disease will follow. Foreign Wilkinson DPM RS/MODL J#: [id number] [facility] - Health History and Physical Notes Date/Time Note Provider Source 2023-03-18 21:30:58 Formatting of this n ote is different from the original. MEDICINE [facility] ADMIT H&P Date of Service: 03/18/2023 CHIEF COMPLAINT: left foot wound History of Present Illness 47 yo female with pmh of asthma, anxiety/depression, CKD, DM s/p right BKA, HTN who presents to the ED secondary to left foot wound for the past 4 days. She denies any recent trauma. No fever, chills, nausea, or vomiting. She has notices drainage from the foot, which caused her to come to the ED. Additional symptoms: decreased mobility due to foot pain, erythema, nausea, vomiting, and decreased oral intake. PAST MEDICAL HISTORY Past Medical History: Diagnosis Date Anxiety and depression 09/11/2020 Asthma 09/16/2022 CKD stage 3 due to type 2 diabetes mellitus 05/01/2021 Diabetes mellitus Essential hypertension 05/01/2021 H/O kidney removal Right Hx of BKA, right Screening examination for STD (sexually transmitted disease) Past Surgical History: Procedure Laterality Date AMPUTATION LOW LEG THRU TIB/FIB SECTION TUBAL LIGATION Family History Problem Relation Age of Onset Cancer Mother Diabetes Mother Hypertension Mother Asthma Mother Heart Father Diabetes Father Hypertension Father Cancer Maternal Grandfather Neurological Maternal Grandfather Diabetes Maternal Grandfather Hypertension Maternal Grandfather Diabetes Maternal Grandmother Hypertension Maternal Grandmother Diabetes Paternal Grandmother Hypertension Paternal Grandmother Diabetes Paternal Grandfather Hypertension Paternal Grandfather ALLERGIES Allergies Allergen Reactions Amoxicillin Unknown - See comments Aspirin Hives Benadryl [Diphenhydramine Hcl] Hives Ciprofloxacin Hives Ivp Dye [Iodine And Iodide Containing Products] Anaphylaxis Penicillin Anaphylaxis Pt states, "I'll flatline" Tramadol Nausea and/or Vomiting drowsiness Mushroom Other - See comments "pass out" MEDICATIONS No current facility-administered medications on file prior to encounter. Current Outpatient Medications on File Prior to Encounter Medication Sig Dispense Refill INSULIN ASP PRT-INSULIN ASPART 100 unit/mL (70-30) injection INJECT 30 UNITS SUBCUTANEOUSLY TWICE DAILY WITH MEALS 15 mL 10 insulin glargine 100 unit/mL injection inject 30 Units under the skin at bedtime. 10 mL 0 blood sugar diagnostic (ACCU-CHEK GUIDE TEST STRIPS) strip Use as directed to test blood sugars four times per day 100 Each 0 Blood-Glucose Meter (ACCU-CHEK GUIDE GLUCOSE METER) Misc Use as directed 1 Each 0 Insulin Syringe-Needle U-100 0.3 mL 31 x 3/8" Syrg Use as directed to inject insulin (lantus once per day, humalog three times per day) 1 Kit 0 lancets 33 gauge Misc Use as directed to test blood sugars four times per day 100 Each 0 amitriptyline 100 mg tablet Take 1 tablet by mouth at bedtime. 90 tablet 1 atorvastatin 80 mg tablet Take 1 tablet by mouth at bedtime. 90 tablet 1 lisinopriL 10 mg tablet Take 1.5 tablets by mouth in the morning. Hold if BP < 110/60 145 tablet 1 metFORMIN 1,000 mg tablet Take 1 tablet by mouth in the morning and 1 tablet in the evening. Take with meals. 180 tablet 1 nicotine 14 mg/24 hr patch Apply 1 Patch to area(s) every 24 (twenty-four) hours. Apply 21mg patch daily x 6 weeks; then apply 14mf patch daily x 2 weeks; then apply 7mg patch daily x 2 weeks. Stop smoking on initiation of therapy 14 Patch 0 nicotine 21 mg/24 hr patch Apply 1 Patch to area(s) in the morning. Apply 21mg patch daily x 6 weeks; then apply 14mf patch daily x 2 weeks; then apply 7mg patch daily x 2 weeks. Stop smoking on initiation of therapy 42 Patch 1 nicotine 7 mg/24 hr patch Apply 1 Patch to area(s) every 24 (twenty-four) hours. Apply 21mg patch daily x 6 weeks; then apply 14mf patch daily x 2 weeks; then apply 7mg patch daily x 2 weeks. Stop smoking on initiation of therapy 14 Patch 0 SITagliptin phosphate (JANUVIA) 100 mg tablet Take 1 tablet by mouth in the morning. 90 tablet 1 xyayietemz-pdcnelfkijcit-lpn f 50-325-40 mg tablet TAKE 1 CAPSULE BY MOUTH EVERY 8 HOURS NEEDED FOR MIGRAINE 90 tablet 2 omeprazole 40 mg capsule Take 1 capsule by mouth in the morning. 90 capsule 1 Miscellaneous Medical Supply [facility] Standard rollator R55/W19.XXXS/M79.604/R06.02/ I50.32/I51.7/E11.3511: Use daily for ambulation/fall precaution 1 Each 0 Walker (ULTRA-LIGHT ROLLATOR) [facility] R55/W19.XXXS/M79.604/R06.02/ I50.32/I51.7/E11.3511: Use daily for ambulation/fall precaution (brand pending insurance approval) 1 Each 0 [facility] Kit I10 - Dispense blood pressure cuff (any brand), take BP at home BID 1 Kit 0 ALBUTEROL 90 mcg/actuation inhaler INHALE 2 PUFFS BY MOUTH EVERY 6 HOURS NEEDED FOR SHORTNESS OF BREATH 8.5 g 1 HYDROcodone-acetaminophen 7.5-325 mg per tablet Take 1 tablet by mouth 2 (two) times daily. SOCIAL HISTORY Social History Socioeconomic History Marital status: Tobacco Use Smoking status: Every Day Packs/day: 0.50 Years: 32.00 Additional pack years: 0.00 Total pack years: 16.00 Types: Cigarettes Start date: 1989 Smokeless tobacco: Never Substance and Sexual Activity Alcohol use: Not Currently Drug use: Never Sexual activity: Yes Partners: Male control/protection: I.U.D. Comment: last intercourse-07/27/2020 Social History Narrative Lives with spouse and daughter Feels safe at home Social Determinants of Health Financial Resource Strain: Low Risk (12/24/2022) Overall Financial Resource Strain (CARDIA) Difficulty of Paying Living Expenses: Not hard at all Food Insecurity: No Food Insecurity (12/24/2022) Hunger Vital Sign Worried About Running Out of Food in the Last Year: Never true Ran Out of Food in the Last Year: Never true Transportation Needs: No Transportation Needs (12/24/2022) PRAPARE - Transportation Lack of Transportation (Medical): No Lack of Transportation (Non-Medical): No Physical Activity: Inactive (12/24/2022) Exercise Vital Sign Days of Exercise per Week: 0 days Minutes of Exercise per Session: 0 min Social Connections: Unknown (12/24/2022) Social Connection and Isolation Panel [NHANES] Frequency of Communication with Friends and Family: More than three times a week Marital Status: Housing Stability: Unknown (12/24/2022) Housing Stability Vital Sign Unable to Pay for Housing in the Last Year: No Unstable Housing in the Last Year: No Review of Systems Constitutional: Positive for activity change (decreased) and appetite change (decreased). Negative for chills, diaphoresis, fatigue, fever and unexpected weight change. HENT: Negative. Eyes: Positive for visual disturbance. Negative for photophobia, pain, discharge, redness and itching. Respiratory: Negative. Breasts: Negative. Cardiovascular: Negative. Gastrointestinal: Positive for abdominal pain (lower), nausea and vomiting. Negative for abdominal distention, anal bleeding, blood in stool, constipation, diarrhea and rectal pain. Genitourinary: Negative. Musculoskeletal: Negative. Skin: Positive for color change, rash and wound. Negative for pallor. Neurological: Positive for headaches. Negative for dizziness, tremors, seizures, syncope, facial asymmetry, speech difficulty, weakness, light-headedness and numbness. Psychiatric/Behavioral: Negative. Endocrine: Endocrine negative PHYSICAL EXAMINATION Vitals: 03/18/23 1720 03/18/23 1722 03/18/23 1900 03/18/231999 BP: (!) 85/54 99/48 (!) 147/92 (!) 154/77 Pulse: 112 121 118 Resp: 18 18 17 Temp: 38.2 ?C (100.8 ?F) TempSrc: Oral SpO2: 97% 98% 100% Weight: 88.9 kg (196 lb) Height: 1.499 m (4' 11") Physical Exam Vitals and nursing note reviewed. Constitutional: General: She is not in acute distress. Appearance: Normal appearance. She is not ill-appearing, toxic-appearing or diaphoretic. HENT: Head: Normocephalic and atraumatic. Right Ear: External ear normal. Left Ear: External ear normal. Nose: Nose normal. No congestion. Mouth/Throat: Mouth: Mucous membranes are moist. Pharynx: No oropharyngeal exudate. Eyes: General: No scleral icterus. Extraocular Movements: Extraocular movements intact. Conjunctiva/sclera: Conjunctivae normal. Pupils: Pupils are equal, round, and reactive to light. Cardiovascular: Rate and Rhythm: Normal rate and regular rhythm. Heart sounds: No murmur heard. No friction rub. No gallop. Pulmonary: Effort: Pulmonary effort is normal. No respiratory distress. Breath sounds: Normal breath sounds. No wheezing or rales. Chest: Chest wall: No tenderness. Abdominal: General: Abdomen is flat. Bowel sounds are normal. There is no distension. Palpations: Abdomen is soft. Tenderness: There is no abdominal tenderness. There is no guarding. Musculoskeletal: General: Tenderness (left foot) present. Normal range of motion. Cervical back: Normal range of motion and neck supple. Left lower leg: Edema present. Skin: Findings: Erythema (left foot) and lesion (noted pus fluid collection superficial in the dorsal of the left foot) present. Neurological: Mental Status: She is alert. Psychiatric: Mood and Affect: Mood normal. Behavior: Behavior normal. Thought Content: Thought content normal. Judgment: Judgment normal. LABS - reviewed pertinent labs as below: Reviewed IMAGING - reviewed, pertinent results as below: ORDERING PHYSICIAN: Sarah GODOMAN HISTORY: 47 years old, Female, r/o osteomyelitis TECHNIQUE: XR FOOT 3+ VW LEFT COMPARISON: None. FINDINGS: No acute fracture, dislocation or evidence of osseous destruction. Soft tissue swelling is present. IMPRESSION Soft tissue swelling without specific evidence to indicate osteomyelitis ASSESSMENT/PLAN Zuly Nieto is a 47 year old female with PMH as listed above, admitted to the hospital with: Sepsis/diabetic foot wound: -- Will continue with intravenous vancomycin for now. Asthma: stable -- duoneb as needed DM: noted to have hypoglycemia -- Will only treat with insulin sliding scale for now HTN: somewhat controlled -- Will hold lisinopril in the setting of acute on chronic kidney disease Acute on CKD: -- Holding lisinopril -- Will check Urinalysis -- Will give gently hydration. Current smoker: spoke for greater than 3 minutes about smoking cessation. At this time, patient refuse smoking cessation therapy. Prophylaxis: DVT- enoxaparin Code Status: addressed: [facility] EMERGENCY PHYSICIAN STAFF [facility] Notes Date/Time Note Provider Source 2024-03-01 10:33:04 Attempted to call patient to schedule unable to reach. zr [facility] Markus Dorsey [facility] 2024-03-01 08:53:45 GALEN 10/23/2023. Please schedule for appointment for control substance refill. Thank you. T [facility] 2024-02-25 10:25:53 Call placed to daughter to inform medications: Sertraline, Amitriptyline, Lisinopril and Atorvastatin were sent on 10/23/2023 with 6 month supply. Only medication that requires refill at this time is afneqnzzaq-xdignbwbthiws-lhf f 50-325-40 mg tablet , last filled on 10/23/2023. Per ambulatory protocol this medication will be routed to provider for approval. Pts daughter reports will call pharmacy to inquire if refill are available. Disp Refills Start End MINDY ldkcytqeph-oujwsaqyiekad-jyn f 50-325-40 mg tablet 90 tablet 2 10/23/2023 -- -- Sig: TAKE 1 CAPSULE BY MOUTH EVERY 8 HOURS NEEDED FOR MIGRAINE Sent to pharmacy as: oodzgbmszm-vsvivybgahcwr-hqc feine 50 mg-325 mg-40 mg tablet (ESGIC) Class: eRX Order: [id number] Date/Time Signed: 10/23/2023 14:38 E-Prescribing Status: Receipt confirmed by pharmacy (10/23/2023 2:38 PM CDT) Recent Visits Date Type Provider Dept 10/23/23 Office Visit Corin Chan FNP [facility] Family Medicine 03/27/23 Office Visit Kwadwo Patel MD [facility] Medicine 12/19/22 Office Visit Kwadwo Patel MD [facility] 09/18/22 Office Visit Kwadwo Patel MD [facility] Showing recent visits within past 540 days with a meds authorizing provider and meeting all other requirements Future Appointments No visits were found meeting these conditions. Showing future appointments within next 150 days with a meds authorizing provider and meeting all other requirements Yoly Jorge RN [facility] 2024-02-25 10:02:47 Zuly Nieto is a 48 year old female Kiarra (dtr) is requesting status of refill for rx SERTRALINE 50 mg tablet amitriptyline 100 mg tablet LISINOPRIL 10 mg tablet atorvastatin 80 mg tablet , rywytutkwb-umtkainagyevr-zzf f 50-325-40 mg tablet Called into the pharmacy,pt completely out of medication Thank you Mandie Mitchell [facility] 2024-02-22 15:14:58 Attempted to call patient, no answer, unable to LVM straight to . Patient has requested refills to soon. Beatris Lamb MA [facility] 2024-02-22 14:52:52 Zuly Nieto is a 48 year old female and daughter Kiarra is calling to request a medication refill. GALEN: 4/12/24 SERTRALINE 50 mg tablet SITagliptin phosphate (JANUVIA) 100 mg tablet [facility] [place] [place] - [address] [facility] [address] [facility] 2024-02-17 09:35:42 Images from the original note were not included. Rx sent on 12/23/2023 was for a 90 day supply, too early for refill. Refill request denied. Endocrinology: Diabetes - Insulins Owzsdk1602/16/2024 06:28 PM Protocol Details Manual review: Staff refilling for [facility], Cr lab not required to refill Cr in normal range and within 360 days Valid encounter within last 12 months HBA1C within 180 days CR - on 10/23/2023 - 1.51 Disp Refills Start End MINDY Insulin Asp Prt-Insulin Aspart 100 unit/mL (70-30) injection 12 mL 2 12/23/2023 -- No Sig: inject 20 Units under the skin in the morning and 20 Units in the evening. inject with meals. Sent to pharmacy as: insulin aspar prot-insulin aspart 100 unit/mL (70-30) subcutaneous pen (NOVOLOG MIX 70-30FLEXPEN U-100) Class: eRX Route: Subcutaneous Order: [id number] Date/Time Signed: 12/23/2023 12:36 E-Prescribing Status: Receipt confirmed by pharmacy (12/23/2023 12:36 PM CDT) Yoly Jorge RN [facility] 2024-02-10 15:10:37 Form re-faxed. [phone] Yoly Jorge RN [facility] 2024-02-10 13:30:30 Complete care medical calling to have forms clinicals re faxed with signature.[phone] Efren Swartz [facility] 2024-02-04 15:53:56 Form signed, faxed and confirmation received. Beatris Lamb MA [facility] 2024-02-04 09:53:40 Form placed in providers folder for signature, Last OV notes have been attached. Yoly Jorge RN [facility] 2024-02-04 07:48:11 Images from the original note were not included. Carol Avila [facility] 2024-01-28 08:37:59 Please review and fill if appropriate. Thanks! Last rx'd: 10/23/2023 Requested Prescriptions Pending Prescriptions Disp Refills SERTRALINE 50 mg tablet [Pharmacy Med Name: SERTRALINE HCL 50 MG TABLET] 90 tablet 0 Sig: TAKE 1 TABLET BY MOUTH EVERY DAY IN THE MORNING Psychiatry: Antidepressants Failed - 01/28/2024 12:31 AM Failed - Manual Review: Verify no changes in dose in the last 3 months Passed - Valid encounter within last 12 months Recent Visits Date Type Provider Dept 10/23/23 Office Visit Corin Chan FNP [facility] Family Medicine 03/27/23 Office Visit Kwadwo Patel MD [facility] Family Medicine Showing recent visits within past 365 days and meeting all other requirements Future Appointments No visits were found meeting these conditions. Showing future appointments within next 365 days and meeting all other requirements [id number] [place], [place] - [facility] [place] [address] AT [place] [id number] [place] [address] [place], [place] - [address] [facility] [address] [facility] [address] [place], [place] - [address] [facility] [id number] Lia Dorado 01/28/2024 8:38 AM Lia Dorado [facility] 2024-01-08 09:53:56 Routed to provider for review. Unable to refill per ambulatory refill guidelines. Notes: Name from pharmacy: OneTouch Ultra Test strips Will file in chart as: ONETOUCH ULTRA TEST strip Sig: USE TO TEST BLOOD GLUCOSE ONCE A DAY Disp: 50 Strip Refills: 11 Start: 01/08/2024 Class: eRX Non-formulary For: Type 2 diabetes mellitus with hyperglycemia, with long-term current use of insulin To pharmacy: current Rx on file is for qty 50 per fill. Could we please have renewal for qty 100 per fill as to match with her lancets/ alc pads? Thank you in advance! Last ordered: 1 year ago (12/24/2022) by Primitivo Reynolds DO Last refill: 01/24/2024 Rx #: [id number] To be filled at: [place], [place] - [address] Last Refilled: 01/24/24 Recent Visits Date Type Provider Dept 10/23/23 Office Visit Corin Chan FNP [facility] Family Medicine 03/27/23 Office Visit Kwadwo Patel MD [facility] 12/19/22 Office Visit Kwadwo Patel MD [facility] Family Medicine 09/18/22 Office Visit Kwadwo Patel MD [facility] Family Medicine Showing recent visits within past 540 days with a meds authorizing provider and meeting all other requirements Future Appointments No visits were found meeting these conditions. Showing future appointments within next 150 days with a meds authorizing provider and meeting all other requirements Corin Osorio MA [facility] 2023-12-24 14:12:16 Notes: Insulin Lesage, Disposable, (BD GLADIS 2ND GEN PEN NEEDLE) 32 gauge x 5/32" Ndle Please Send TRISTAN patient is completely out [phone] (home) Last Refilled: 06/16/2023, Refill sent to pharmacy. Recent Visits Date Type Provider Dept 10/23/23 Office Visit Corin Chan FNP [facility] Family Medicine 03/27/23 Office Visit Kwadwo Patel MD [facility] Family Medicine 12/19/22 Office Visit Kwadwo Patel MD [facility] 09/18/22 Office Visit Kwadwo Patel MD [facility] Family [facility] Showing recent visits within past 540 days with a meds authorizing provider and meeting all other requirements Future Appointments No visits were found meeting these conditions. Showing future appointments within next 150 days with a meds authorizing provider and meeting all other requirements Disp Refills Start End MINDY Insulin Lesage, Disposable, (BD GLADIS 2ND GEN PEN NEEDLE) 32 gauge x 5/32" Ndle 200 Each 0 06/16/2023 -- No Sig: Use as directed two times daily with meals. Sent to pharmacy as: pen needle, diabetic 32 gauge x 5/32" (BD Gladis 2nd Gen Pen Needle) Class: eRX Order: [id number] Date/Time Signed: 06/16/2023 18:24 E-Prescribing Status: Receipt confirmed by pharmacy (06/16/2023 6:24 PM CLINICAL RESEARCH NURSE) Yoly Jorge RN [facility] 2023-12-24 12:18:26 Copied from [facility] #[id number]. 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 Last office visit: 06/05/2021 Last refill date: 06/16/2024 Last labs: 10/23/2023 Should now be managed by PCP who is refilling medications. Has not been seen by Endo since 2020. Routing to PCP office to resume refills. [id number] [place] [address] Geneva Quinteros RN [facility] 2023-12-22 09:00:51 Images from the original note were not included. Requested Renewals Insulin Asp Prt-Insulin Aspart 100 unit/mL (70-30) injection Sig: inject 20 Units under the skin in the morning and 20 Units in the evening. inject with meals. Disp: 15 mL Refills: 10 Start: 12/21/2023 Class: eRX Non-formulary For: Type 2 diabetes mellitus with hyperglycemia, with long-term current use of insulin Last ordered: 9 months ago (03/26/2023) by ROBYN Glover Endocrinology: Diabetes - Insulins Zftenz1012/21/2023 05:46 PM Protocol Details Manual review: Staff refilling for [facility], Cr lab not required to refill Cr in normal range and within 360 days Valid encounter within last 12 months HBA1C within 180 days To be filled at: [id number] [place] [address] Beatris Lamb MA [facility] 2023-12-21 17:42:30 Zuly Nieto is a 48 year old female Pt is calling to request to Rx the pins only for Insulin Asp Prt-Insulin Aspart 100 unit/mL (70-30) injection .Please call it in @ [id number] [facility] 2023-11-20 14:32:54 Patient has been informed of referral has been made. Beatris Lamb MA [facility] 2023-11-20 14:29:09 I'm not sure she will need replacement, but maybe removal I can place referral [facility] 2023-11-20 13:23:05 Copied from [facility] #[id number]. 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 Please advise. Susanna Amaya [facility] 2023-10-23 16:08:49 Images from the original note were not included. Please review Medications from outside sources need reconciliation. Changes Requested Name from pharmacy: LISINOPRIL 10 MG TABLET Will file in chart as: LISINOPRIL 10 mg tablet Possible duplicate: Hover to review recent actions on this medication Sig: TAKE 1 AND 1/2 TABLET BY MOUTH IN THE MORNING. HOLD IF BP < 110/60 Disp: 145 tablet Refills: 1 Start: 10/23/2023 Class: eRX Non-formulary For: Type 2 diabetes mellitus with hyperglycemia, with long-term current use of insulin; Essential hypertension Last ordered: Today (10/23/2023) by BHAVIN Barron Last refill: 10/23/2023 Rx #: [id number] Pharmacy comment: Alternative Requested:MAX DOSE 1 TABLET DAILY. Cardiovascular: BASIL Inhibitors [id number]/23/2023 03:01 PM Protocol Details Valid encounter within last 12 months K in normal range and within 360 days Cr in normal range and within 360 days This request has changes from the previous prescription. To be filled at: [id number] [place], [place] - [address] [place] [address] AT [facility] Echo Tucker MA [facility] 2023-10-23 15:00:00 Images from the original note were not included. Venipuncture collection performed by clean technique on the left anticubitus. Total of 1 attempts were made. Slight pressure and a bandage/dressing were applied to the site(s). The patient experienced no complications. The following specimens were processed according to instructions and sent to [facility] laboratories per lab order on 10/23/2023: LT BLUE SST 1 RED LAV 2 PPT DK GREEN (LiHep) DK GREEN (SodH) MINA DK BLUE (K2) DK BLUE (S) ACD Blood Culture NIPT/NTD Pt unable to void, sent bt with specimen cup and pt will try to collect at home. [facility] 2023-10-02 11:19:49 Spoke to [facility], requesting only demographic form and last OV as they already have forms signed by . Forms refaxed. Yoly Jorge RN [facility] 2023-10-02 11:07:32 Images from the original note were not included. Pt last office visit 03/25/23. Tiffani Bautista [facility] 2023-09-29 08:59:53 From signed and faxed, confirmation received. Echo Tucker MA 09/29/2023 8:59 AM Echo Tucker MA [facility] 2023-09-29 08:58:27 From signed and faxed, confirmation received. Echo Tucker MA 09/29/2023 8:59 AM Echo Tucker MA [facility] 2023-09-28 16:49:58 Zuly Nieto is a 47 year [facility] to fax a new order to [facility] for pt's prostatic leg. [facility] fx #: [phone] Please advise Thank you Delfina Carbajal [facility] 2023-09-28 16:22:03 Images from the original note were not included. Forms placed in nurse folder. Tiffani Bautista [facility] 2023-08-21 10:51:55 Last OV: 03/27/2023 with Kwadwo Patel Last Refills prescribed by Kwadwo Patel Last Labs Pertaining to Med: CREATININE Date Value 03/23/2023 0.85 mg/dL 04/03/2006 0.55 MG/DL (L) HGB A1C (%) Date Value 03/18/2023 6.4 (H) Future Appt: Future Appointments Provider Department Dept Phone 09/04/2023 8:40 AM Kwadwo Patel MD [facility], [place] [phone] Refill request for metformin and omeprazole refilled per ambulatory refill guidelines. Patient will need appointment with labs in one month for additional refills of metformin-patient already has appointment for visit. EN Myrick RN [facility] 2023-08-19 09:08:48 Spoke with [facility] and provided with patient phone number and insurance information. EN Lamb MA [facility] 2023-08-19 08:58:33 Images from the original note were not included. EN Avila [facility] 2023-08-18 16:10:01 Orders were faxed to [facility] to [phone] EN Lamb MA [facility] 2023-08-18 15:52:29 DME Request Below-knee amputation of right lower extremity - S/P BKA (below knee amputation), right - Leg Brace Misc; Use as directed Dispense: 1 Each; Refill: 0 - LOWR EXTREMITY PROSTHES NOS; Future - Order to be faxed to: [facility], for adjustment for prosthetic [ ] Kwadwo Patel MD, MPH Medicaid Specialist, Department of Family Medicine [facility] 08/18/2023 3:53 PM Future Appointments In 2 weeks Kwadwo Patel MD [facility] 2023-08-18 14:43:30 Routing to provider. [facility] 2023-08-18 14:34:19 Lesley with [facility] is calling in requesting an order faxed over to [facility] [phone] for adjustment for prosthetic leg. [facility] EN Martinez [facility] 2023-08-17 12:05:19 Routing to provider. EN Lamb MA [facility] 2023-08-17 11:57:22 1145 spoke to pharmacy staff, states pt never filled Esgic rx from 09/18/2022 Spoke to Kiarra( daughter) asked if she was with Zuly, states Zuly is at her house, and that she is sleep right now states she is having a migraine for past 4 days and [address] the dr took her off of her migraine medication . Told Kiarra I will call Zuly 1150 Called Zuly, the phone rang several times, no answer and no voicemail set up Routing message to clinic for follow-up Aneatrice Dian, BSN, RN [facility] Access Center ICAL RESEARCH NURSE Ema Biggs RN [facility] 2023-08-17 11:41:00 Regarding: Migraine x 4 days ----- Message from Richard Lester sent at 08/17/2023 11:31 AM CLINICAL RESEARCH NURSE ----- Zuly Nieto is a 47 year old female Specific Symptoms: Migraine Specific Duration: 4 days, declined apt. Advised our nurses cannot prescribe medications. ICAL RESEARCH NURSE Ema Biggs RN [facility] 2023-08-17 11:41:00 1145 spoke to pharmacy staff, states pt never filled Esg[facility] rx from 09/18/2022 Spoke to Kiarra( daughter) asked if she was with Zuly, states Zuly is at her house, and that she is sleep right now states she is having a migraine for past 4 days and that the dr took her off of her migraine medication . Told Kiarra I will call Zuly 1150 Called Zuly, the phone rang several times, no answer and no voicemail set up Routing message to clinic for follow-up Reason for Disposition Second attempt to contact family AND no contact made. Phone number verified. Protocols used: No Contact or Duplicate Contact [id number] [facility] 2023-08-13 20:01:10 DME order Below-knee amputation of right lower extremity - Chronic and stable - Complicated by Phantom limb pain, Recurrent falls while walking - Patient is currently wheelchair dependant - Fall precautions advised. - Patient has prosthetic in place, pending fitting for new prosthetic - PROSTHETIC TYPE SOCKET MOLDE; Future [facility] 2023-08-13 14:10:[address] provider to place orders. ICAL RESEARCH NURSE Beatris Lamb MA [facility] 2023-08-13 13:02:59 Zuly Nieto is a 47 year old female Daughter of patient called stating that [facility] told her that she needs an order to be placed for her mom to get fitted for a prosthetic for her leg and needs to be placed by her pcp Please advise EN Stern [facility] 2023-07-17 10:49:10 Refill Request Type 2 diabetes mellitus with hyperglycemia, with long-term current use of insulin - lisinopriL 10 mg tablet; Take 1.5 tablets by mouth in the morning. Hold if BP < 110/60 Dispense: 145 tablet; Refill: 1 Essential hypertension - lisinopriL 10 mg tablet; Take 1.5 tablets by mouth in the morning. Hold if BP < 110/60 Dispense: 145 tablet; Refill: 1 [facility] 2023-07-15 10:56:18 Routing to provider. EN Lamb MA [facility] 2023-07-14 09:23:57 [facility] calling because the insurance didn't want to cover the lisinopriL for more than one tablet a day. They would like to know if they are taking another blood pressure medication instead EN Swartz [facility] 2023-03-27 16:24:30 Formatting of this n ote is different from the original. TRANSITIONAL CARE MANAGEMENT ASSESSMENT 03/27/2023 Zuly Nieto [id number] Zuly Nieto is a 47 year old /White female was admitted on 03/18/23 to [facility]. She was discharged on 03/26/23 with discharge disposition of HR- Routine Discharge. Admitting Physician: Rosi Jones Discharge Diagnosis: Sepsis Linked Episodes Type: Episode: Status: Noted: Resolved: Last update: Updated by: TRANSITION OF CARE TCM Active 03/26/2023 03/27/2023 12:45 PM Dina Medley RN Comments:03/26/2023 TCM Mbc-[id number]-face outreach documentation: Care Transition CM attempted to reach patient via telephone x2. No response and voicemail not set up. Unable to leave message. Discharge Assessment Chart Assessed: 03/27/23 TCM Outreach Completed: 03/27/23 Future Appointments: Future Appointments Provider Department Dept Phone 07/01/2023 11:20 AM Kwadwo Patel MD [facility] [phone] Dina Medley RN [facility] 2023-03-27 12:45:33 Formatting of this n ote might be different from the original. Care Transition CM attempted to reach patient via telephone. No response and voicemail not set up. Unable to leave message. Dina Medley RN, BSN Law Writer-[employer]ES[employer] TEAM [phone] [facility] 2023-03-26 15:46:09 Formatting of this n ote might be different from the original. Patient is AOx4. Respirations are even and unlabored. Denies pain/discomfort. Patient has been educated on discharge instructions, medications, diagnosis, and follow up appointments. IV discontinued. Patient and spouse deny discharge concerns at this time. Patient is Discharging home via taxi, spouse is aware of ETA home. [facility] 2023-03-26 15:01:44 Formatting of this n ote might be different from the original. Problem: Pain Goal: Control of pain at or below patient's documented comfort goal 03/26/2023 1501 by Wilton Ni RN Outcome: Adequate for discharge 03/26/2023 1244 by Wilton Ni RN Outcome: Progressing as expected Problem: Falls, Risk of Goal: Absence of falls 03/26/2023 1501 by Wilton Ni RN Outcome: Adequate for discharge 03/26/2023 1244 by Wilton Ni RN Outcome: Progressing as expected Problem: Skin integrity Impaired (Risk or Actual) Goal: Wound healing 03/26/2023 1501 by Wilton Ni RN Outcome: Adequate for discharge 03/26/2023 1244 by Wilton Ni RN Outcome: Progressing as expected Goal: Prevention of new skin breakdown 03/26/2023 1501 by Wilton Ni RN Outcome: Adequate for discharge 03/26/2023 1244 by Wilton Ni RN Outcome: Progressing as expected Problem: Glucose control Goal: Glucose level within specified parameters 03/26/2023 1501 by Wilton Ni RN Outcome: Adequate for discharge 03/26/2023 1244 by Wilton Ni RN Outcome: Progressing as expected Problem: Venous Thromboembolism, (actual or risk of) Goal: Absence of venous thromboembolism (Risk) 03/26/2023 1501 by Wilton Ni RN Outcome: Adequate for discharge 03/26/2023 1244 by Wilton Ni RN Outcome: Progressing as expected Problem: Discharge Planning Goal: Adequate for discharge 03/26/2023 1501 by Wilton Ni RN Outcome: Adequate for discharge 03/26/2023 1244 by Wilton Ni RN Outcome: Progressing as expected Goal: Effective communication 03/26/2023 1501 by Wilton Ni RN Outcome: Adequate for discharge 03/26/2023 1244 by Wilton Ni RN Outcome: Progressing as expected Problem: Sepsis - Active Goal: Absence of infection signs and symptoms 03/26/2023 1501 by Wilton Ni RN Outcome: Adequate for discharge 03/26/2023 1244 by Wilton Ni RN Outcome: Progressing as expected Problem: Respiratory Function - Impaired Goal: Able to cough effectively 03/26/2023 1501 by Wilton Ni RN Outcome: Adequate for discharge 03/26/2023 1244 by Wilton Ni RN Outcome: Progressing as expected Goal: Adequate oxygenation 03/26/2023 1501 by Wilton Ni RN Outcome: Adequate for discharge 03/26/2023 1244 by Wilton Ni RN Outcome: Progressing as expected Goal: Adequate work of breathing 03/26/2023 1501 by Wilton Ni RN Outcome: Adequate for discharge 03/26/2023 1244 by Wilton Ni RN Outcome: Progressing as expected [facility] 2023-03-26 12:44:53 Formatting of this n ote might be different from the original. Problem: Pain Goal: Control of pain at or below patient's documented comfort goal Outcome: Progressing as expected Problem: Falls, Risk of Goal: Absence of falls Outcome: Progressing as expected Problem: Skin integrity Impaired (Risk or Actual) Goal: Wound healing Outcome: Progressing as expected Goal: Prevention of new skin breakdown Outcome: Progressing as expected Problem: Glucose control Goal: Glucose level within specified parameters Outcome: Progressing as expected Problem: Venous Thromboembolism, (actual or risk of) Goal: Absence of venous thromboembolism (Risk) Outcome: Progressing as expected Problem: Discharge Planning Goal: Adequate for discharge Outcome: Progressing as expected Goal: Effective communication Outcome: Progressing as expected Problem: Sepsis - Active Goal: Absence of infection signs and symptoms Outcome: Progressing as expected Problem: Respiratory Function - Impaired Goal: Able to cough effectively Outcome: Progressing as expected Goal: Adequate oxygenation Outcome: Progressing as expected Goal: Adequate work of breathing Outcome: Progressing as expected [facility] 2023-03-26 01:27:52 Formatting of this n ote might be different from the original. Problem: Pain Goal: Control of pain at or below patient's documented comfort goal Outcome: Progressing as expected Problem: Falls, Risk of Goal: Absence of falls Outcome: Progressing as expected Problem: Skin integrity Impaired (Risk or Actual) Goal: Wound healing Outcome: Progressing as expected Goal: Prevention of new skin breakdown Outcome: Progressing as expected Problem: Glucose control Goal: Glucose level within specified parameters Outcome: Progressing as expected Problem: Venous Thromboembolism, (actual or risk of) Goal: Absence of venous thromboembolism (Risk) Outcome: Progressing as expected Problem: Discharge Planning Goal: Adequate for discharge Outcome: Progressing as expected Goal: Effective communication Outcome: Progressing as expected Problem: Sepsis - Active Goal: Absence of infection signs and symptoms Outcome: Progressing as expected Problem: Respiratory Function - Impaired Goal: Able to cough effectively Outcome: Progressing as expected Goal: Adequate oxygenation Outcome: Progressing as expected Goal: Adequate work of breathing Outcome: Progressing as expected T Kim Sheikh RN [facility] 2023-03-25 12:36:50 Formatting of this n ote might be different from the original. Problem: Pain Goal: Control of pain at or below patient's documented comfort goal Outcome: Progressing as expected Problem: Falls, Risk of Goal: Absence of falls Outcome: Progressing as expected Problem: Skin integrity Impaired (Risk or Actual) Goal: Wound healing Outcome: Progressing as expected Goal: Prevention of new skin breakdown Outcome: Progressing as expected Problem: Glucose control Goal: Glucose level within specified parameters Outcome: Progressing as expected Problem: Venous Thromboembolism, (actual or risk of) Goal: Absence of venous thromboembolism (Risk) Outcome: Progressing as expected Problem: Discharge Planning Goal: Adequate for discharge Outcome: Progressing as expected Goal: Effective communication Outcome: Progressing as expected Problem: Sepsis - Active Goal: Absence of infection signs and symptoms Outcome: Progressing as expected T [facility] 2023-03-25 01:57:39 Formatting of this n ote might be different from the original. Problem: Pain Goal: Control of pain at or below patient's documented comfort goal Outcome: Progressing as expected Problem: Falls, Risk of Goal: Absence of falls Outcome: Progressing as expected Problem: Skin integrity Impaired (Risk or Actual) Goal: Wound healing Outcome: Progressing as expected Goal: Prevention of new skin breakdown Outcome: Progressing as expected Problem: Glucose control Goal: Glucose level within specified parameters Outcome: Progressing as expected Problem: Venous Thromboembolism, (actual or risk of) Goal: Absence of venous thromboembolism (Risk) Outcome: Progressing as expected Problem: Discharge Planning Goal: Adequate for discharge Outcome: Progressing as expected Goal: Effective communication Outcome: Progressing as expected Problem: Sepsis - Active Goal: Absence of infection signs and symptoms Outcome: Progressing as expected [facility] 2023-03-24 18:39:39 Formatting of this n ote might be different from the original. Problem: Sepsis - Active Goal: Absence of infection signs and symptoms Outcome: Progressing as expected Problem: Pain Goal: Control of pain at or below patient's documented comfort goal Outcome: Progressing as expected Problem: Falls, Risk of Goal: Absence of falls Outcome: Progressing as expected Problem: Skin integrity Impaired (Risk or Actual) Goal: Wound healing Outcome: Progressing as expected Goal: Prevention of new skin breakdown Outcome: Progressing as expected Problem: Glucose control Goal: Glucose level within specified parameters Outcome: Progressing as expected Problem: Venous Thromboembolism, (actual or risk of) Goal: Absence of venous thromboembolism (Risk) Outcome: Progressing as expected Problem: Discharge Planning Goal: Adequate for discharge Outcome: Progressing as expected Goal: Effective communication Outcome: Progressing as expected Angela Parks RN [facility] 2023-03-23 21:40:33 Formatting of this n ote might be different from the original. Problem: Pain Goal: Control of pain at or below patient's documented comfort goal Outcome: Progressing as expected Problem: Falls, Risk of Goal: Absence of falls Outcome: Progressing as expected Problem: Skin integrity Impaired (Risk or Actual) Goal: Wound healing Outcome: Progressing as expected Goal: Prevention of new skin breakdown Outcome: Progressing as expected Problem: Glucose control Goal: Glucose level within specified parameters Outcome: Progressing as expected Problem: Venous Thromboembolism, (actual or risk of) Goal: Absence of venous thromboembolism (Risk) Outcome: Progressing as expected Problem: Discharge Planning Goal: Adequate for discharge Outcome: Progressing as expected Goal: Effective communication Outcome: Progressing as expected Problem: Sepsis - Active Goal: Absence of infection signs and symptoms Outcome: Progressing as expected Ariadna Prescott RN [facility] 2023-03-23 19:35:32 Formatting of this n ote might be different from the original. Problem: Pain Goal: Control of pain at or below patient's documented comfort goal Outcome: Progressing as expected Problem: Falls, Risk of Goal: Absence of falls Outcome: Progressing as expected Problem: Skin integrity Impaired (Risk or Actual) Goal: Wound healing Outcome: Progressing as expected Goal: Prevention of new skin breakdown Outcome: Progressing as expected Problem: Glucose control Goal: Glucose level within specified parameters Outcome: Progressing as expected Problem: Venous Thromboembolism, (actual or risk of) Goal: Absence of venous thromboembolism (Risk) Outcome: Progressing as expected Problem: Discharge Planning Goal: Adequate for discharge Outcome: Progressing as expected Goal: Effective communication Outcome: Progressing as expected Problem: Sepsis - Active Goal: Absence of infection signs and symptoms Outcome: Progressing as expected Melissa Breaux RN [facility] 2023-03-23 09:09:20 Formatting of this n ote might be different from the original. Form signed by Dr Patel and faxed back to [facility], successful fax confirmation received. Office visit notes attached to fax. Carmen Renteria RN [facility] 2023-03-22 22:48:36 Formatting of this n ote might be different from the original. Problem: Pain Goal: Control of pain at or below patient's documented comfort goal Outcome: Progressing as expected Problem: Falls, Risk of Goal: Absence of falls Outcome: Progressing as expected Problem: Skin integrity Impaired (Risk or Actual) Goal: Wound healing Outcome: Progressing as expected Goal: Prevention of new skin breakdown Outcome: Progressing as expected Problem: Glucose control Goal: Glucose level within specified parameters Outcome: Progressing as expected Problem: Venous Thromboembolism, (actual or risk of) Goal: Absence of venous thromboembolism (Risk) Outcome: Progressing as expected Problem: Discharge Planning Goal: Adequate for discharge Outcome: Progressing as expected Goal: Effective communication Outcome: Progressing as expected Problem: Sepsis - Active Goal: Absence of infection signs and symptoms Outcome: Progressing as expected [facility] 2023-03-22 17:49:37 Formatting of this n ote might be different from the original. Problem: Sepsis - Active Goal: Absence of infection signs and symptoms Outcome: Progressing as expected Problem: Pain Goal: Control of pain at or below patient's documented comfort goal Outcome: Progressing as expected Problem: Falls, Risk of Goal: Absence of falls Outcome: Progressing as expected Problem: Skin integrity Impaired (Risk or Actual) Goal: Wound healing Outcome: Progressing as expected Goal: Prevention of new skin breakdown Outcome: Progressing as expected Problem: Glucose control Goal: Glucose level within specified parameters Outcome: Progressing as expected Problem: Venous Thromboembolism, (actual or risk of) Goal: Absence of venous thromboembolism (Risk) Outcome: Progressing as expected Problem: Discharge Planning Goal: Adequate for discharge Outcome: Progressing as expected Goal: Effective communication Outcome: Progressing as expected [facility] 2023-03-21 22:04:03 Formatting of this n ote might be different from the original. Problem: Pain Goal: Control of pain at or below patient's documented comfort goal Outcome: Progressing as expected Problem: Falls, Risk of Goal: Absence of falls Outcome: Progressing as expected Problem: Skin integrity Impaired (Risk or Actual) Goal: Wound healing Outcome: Progressing as expected Goal: Prevention of new skin breakdown Outcome: Progressing as expected Problem: Glucose control Goal: Glucose level within specified parameters Outcome: Progressing as expected Problem: Venous Thromboembolism, (actual or risk of) Goal: Absence of venous thromboembolism (Risk) Outcome: Progressing as expected Problem: Discharge Planning Goal: Adequate for discharge Outcome: Progressing as expected Goal: Effective communication Outcome: Progressing as expected Problem: Sepsis - Active Goal: Absence of infection signs and symptoms Outcome: Progressing as expected [facility] 2023-03-21 16:51:42 Formatting of this n ote might be different from the original. Problem: Sepsis - Active Goal: Absence of infection signs and symptoms Outcome: Progressing as expected Problem: Pain Goal: Control of pain at or below patient's documented comfort goal Outcome: Progressing as expected Problem: Falls, Risk of Goal: Absence of falls Outcome: Progressing as expected Problem: Skin integrity Impaired (Risk or Actual) Goal: Wound healing Outcome: Progressing as expected Goal: Prevention of new skin breakdown Outcome: Progressing as expected Problem: Glucose control Goal: Glucose level within specified parameters Outcome: Progressing as expected Problem: Venous Thromboembolism, (actual or risk of) Goal: Absence of venous thromboembolism (Risk) Outcome: Progressing as expected Problem: Discharge Planning Goal: Adequate for discharge Outcome: Progressing as expected Goal: Effective communication Outcome: Progressing as expected [facility] 2023-03-21 00:45:14 Summary: Vancomycin Monitoring Vancomycin Therapeutic Monitoring Note Pharmacy to monitor vancomycin dosing for patient Zuly Nieto, [id number]. Primary Physician: Dr. Jones ID Physician, if following: None Indication for Vancomycin and Goal Trough: Skin and Soft Tissue Infections - Trough 10-15 mcg/ml Age: [age] year old Weight: Wt Readings from Last 1 Encounters: 03/18/23 88.9 kg (196 lb) Duration of Antibiotics: Other: TBD Concurrent Antibiotics: Ceftriaxone 2000mg IV Q24H (03/20/23 - ) Microbiology: Blood cultures: No growth in 48H Wound/Aspirate/Abscess: 4+ Staphylococcus aureus, Susceptibility to follow. MRSA PCR negative MSSA PCR positive Laboratory Data and Vancomycin Dosing: Date Scr (mg/dL) CrCL (mL/min) Dosing Regimen and frequency @ Times (mg) Vancomycin Level @ Time (mcg/mL) 03/18/23 1.47 - 1250 mg IV Q24H @ 182 - 03/19/23 1.2 1250mg IV Q24H @ 2116 - 03/20/23 1.03 85 1250mg IV Q24H @ 2039 12.2 mcg/mL - - - - Assessment and Plan: Trough returned on 03/20/23 = 12.2 mcg/mL, which is therapeutic. Scr is improving Plan is to: Con't vancomycin scheduled at a dose of: 1250mg(15mg/kg) IV Q24H Plan to draw next trough level on: TBD (5-7 days) Thank you for allowing pharmacy to participate in the care of this patient. Please feel free to contact us with any questions or concerns. Blaine Romero [facility] Department of Pharmacy Blaine Romero [facility] 2023-03-20 21:17:01 Formatting of this n ote might be different from the original. Problem: Pain Goal: Control of pain at or below patient's documented comfort goal Outcome: Progressing as expected Problem: Falls, Risk of Goal: Absence of falls Outcome: Progressing as expected Problem: Skin integrity Impaired (Risk or Actual) Goal: Wound healing Outcome: Progressing as expected Goal: Prevention of new skin breakdown Outcome: Progressing as expected Problem: Glucose control Goal: Glucose level within specified parameters Outcome: Progressing as expected Problem: Venous Thromboembolism, (actual or risk of) Goal: Absence of venous thromboembolism (Risk) Outcome: Progressing as expected Problem: Discharge Planning Goal: Adequate for discharge Outcome: Progressing as expected Goal: Effective communication Outcome: Progressing as expected Problem: Sepsis - Active Goal: Absence of infection signs and symptoms Outcome: Progressing as expected Thea Pate RN [facility] 2023-03-20 14:08:33 Formatting of this n ote might be different from the original. Problem: Pain Goal: Control of pain at or below patient's documented comfort goal Outcome: Progressing as expected Problem: Falls, Risk of Goal: Absence of falls Outcome: Progressing as expected Problem: Skin integrity Impaired (Risk or Actual) Goal: Wound healing Outcome: Progressing as expected Goal: Prevention of new skin breakdown Outcome: Progressing as expected Problem: Glucose control Goal: Glucose level within specified parameters Outcome: Progressing as expected Problem: Venous Thromboembolism, (actual or risk of) Goal: Absence of venous thromboembolism (Risk) Outcome: Progressing as expected Goal: Prevent further complications associated with VTE diagnosis (Actual) Outcome: Progressing as expected [facility] 2023-03-20 12:21:00 Formatting of this n ote might be different from the original. BRIEF OPERATIVE NOTE Date of Surgery: 03/20/2023 Surgeon(s) and Role: * Foreign Wilkinson Jr., DPM - Primary Pre-Op Diagnosis: ABSCESS LEFT FOOT Post-Op Diagnosis Codes: * Abscess of foot [L02.619] Procedures: Procedure(s) (LRB): INCISION AND DRAINAGE LOWER EXTREMITY (Left) CPT: RUSTY, Any Complications Encounters: none Estimated Blood Loss: <10cc Specimens Removed: * No specimens in log * * No implants in log * Patient's Condition: stable Findings: As above Any other important information: none Please see dictated operative report for additional detail. [facility] 2023-03-20 06:53:25 Formatting of this n ote might be different from the original. Problem: Pain Goal: Control of pain at or below patient's documented comfort goal Outcome: Progressing as expected Problem: Falls, Risk of Goal: Absence of falls Outcome: Progressing as expected Problem: Skin integrity Impaired (Risk or Actual) Goal: Wound healing Outcome: Progressing as expected Goal: Prevention of new skin breakdown Outcome: Progressing as expected Problem: Glucose control Goal: Glucose level within specified parameters Outcome: Progressing as expected Problem: Venous Thromboembolism, (actual or risk of) Goal: Absence of venous thromboembolism (Risk) Outcome: Progressing as expected Goal: Prevent further complications associated with VTE diagnosis (Actual) Outcome: Progressing as expected [facility] 2023-03-20 00:09:00 Formatting of this n ote might be different from the original. FACULTY SURGEON: Foreign Wilkinson DPM RESIDENT SURGEON: ESTIMATOR JEWELRY OR TEACHING RESIDENT: PREOPERATIVE DIAGNOSIS: Left foot abscess. POSTOPERATIVE DIAGNOSIS: Left foot abscess. OPERATION: Left foot incision and drainage. PROCEDURE: Pathology: None. Anesthesia: TIVA with 20 mL of 1:1 of 0.5% Marcaine, 1% lidocaine plain in an ankle block. Hemostasis: None. Materials: Half-inch iodoform gauze. Injectables: None. Complication: None. Patient was brought to the [facility] operating room and placed on the OR table in the supine position. The patient was placed under sedation by anesthesiologist and 20 mL of 1:1 of 0.5% Marcaine, 1% lidocaine plain were injected in local fashion in the left lower extremity. The patient was prepped and draped in the usual aseptic manner and the left lower extremity was evaluated, at which time there was not really any purulence exuding from a simple I and D that was performed at bedside one day previous. At this time, a Arden elevator was inserted and the abscess was noted to track proximally toward the ankle and distally toward the 3rd and 4th toes. At this time, the incision was extended into these areas. There was noted to be purulent drainage noted proximally, laterally and distally. This was all debrided with any necrotic tissue being removed. The wound was then irrigated with copious amounts of normal sterile saline utilizing pulse lavage. There was no purulence or necrotic tissue noted after completion of the irrigation. Following this, the wound was packed with half-inch iodoform gauze and a sterile dressing consisting of 4x4s, Kerlix, ABD and an Basil wrap was applied to the left lower extremity. The patient was noted to tolerate the procedure and anesthesia well, and was transferred from the operating room to Recovery with vital signs stable and neurovascular status intact. ESTIMATED BLOOD LOSS: Less than 10 cc. Foreign Wilkinson DPM RS/NASRINL J#: [id number] [facility] 2023-03-19 19:46:46 Formatting of this n ote might be different from the original. Problem: Pain Goal: Control of pain at or below patient's documented comfort goal Outcome: Progressing as expected Problem: Falls, Risk of Goal: Absence of falls Outcome: Progressing as expected Problem: Skin integrity Impaired (Risk or Actual) Goal: Wound healing Outcome: Progressing as expected Goal: Prevention of new skin breakdown Outcome: Progressing as expected Problem: Glucose control Goal: Glucose level within specified parameters Outcome: Progressing as expected Problem: Venous Thromboembolism, (actual or risk of) Goal: Absence of venous thromboembolism (Risk) Outcome: Progressing as expected Goal: Prevent further complications associated with VTE diagnosis (Actual) Outcome: Progressing as expected [facility] 2023-03-19 00:09:31 Formatting of this n ote might be different from the original. Problem: Pain Goal: Control of pain at or below patient's documented comfort goal 03/19/20238 by Felecia Xie RN Outcome: Progressing as expected 03/19/20237 by Felecia Xie RN Outcome: Progressing as expected Problem: Falls, Risk of Goal: Absence of falls 03/19/20238 by Felecia Xie RN Outcome: Progressing as expected 03/19/20237 by Felecia Xie RN Outcome: Progressing as expected Problem: Skin integrity Impaired (Risk or Actual) Goal: Wound healing 03/19/20238 by Felecia Xie RN Outcome: Progressing as expected 03/19/20237 by Felecia Xie RN Outcome: Progressing as expected Goal: Prevention of new skin breakdown 03/19/20238 by Felecia Xie RN Outcome: Progressing as expected 03/19/20237 by Felecia Xie RN Outcome: Progressing as expected Problem: Glucose control Goal: Glucose level within specified parameters 03/19/20238 by Felecia Xie RN Outcome: Progressing as expected 03/19/20237 by Felecia Xie RN Outcome: Progressing as expected Problem: Venous Thromboembolism, (actual or risk of) Goal: Absence of venous thromboembolism (Risk) Outcome: Progressing as expected Goal: Prevent further complications associated with VTE diagnosis (Actual) Outcome: Progressing as expected [facility] 2023-03-18 20:40:39 Formatting of this n ote might be different from the original. Nurse Report Report given to MARIA ALEJANDRA Izquierdo. Chief complaint, assessment findings, infusion verify and orders reviewed. Plan of care discussed with both nurses. Janey Alberto RN Janey Alberto RN [facility] 2023-03-18 20:28:57 Formatting of this n ote is different from the original. Vancomycin Therapeutic Monitoring Note Pharmacy to monitor vancomycin dosing for patient Zuly Nieto, [id number]. Primary Physician: Dr. Jones ID Physician, if following: Indication for Vancomycin and Goal Trough: Skin and Soft Tissue Infections - Trough 10-15 mcg/ml Age: [age] year old Weight: Wt Readings from Last 1 Encounters: 03/18/23 88.9 kg (196 lb) Duration of Antibiotics: Other: Concurrent Antibiotics: None Microbiology: In Progress Laboratory Data and Vancomycin Dosing: Date Scr (mg/dL) CrCL (mL/min) Dosing Regimen and frequency @ Times (mg) Vancomycin Level @ Time (mcg/mL) 03/18 1.47 - 1250 mg IV Q24H @ 1952 - - - - - - - Assessment and Plan: Discussed with Dr. Jones Plan is to: Start vancomycin scheduled at a dose of: 1250 mg IV Q24H 03/19/23 @ 2000 Expected trough 14.1 mcg/ml and AUC 483 Plan to draw next trough level on: 03/20/23 @ 1930 Thank you for allowing pharmacy to participate in the care of this patient. Please feel free to contact us with any questions or concerns. Kyle Tatum RPH, PharmD [facility] - Department of Pharmacy 03/18/2023 20:22 Kyle Tatum Jem [facility] 2023-03-18 17:19:09 Formatting of this n ote might be different from the original. CC: patient presents to the ER with complaints of left leg/foot cellulitis that began 4 days ago. Patient states she also had a wound pop on the top of her foot that is draining pus. PMHx: see history Awake, alert, oriented, resp reg unlabored, skin warm and dry, color appropriate for race, moves all ext without difficulty, amb without assistance. Appears in no distress. Jesi London RN [facility] 2023-03-18 16:49:00 Formatting of this n ote is different from the original. Images from the original note were not included. [facility] Emergency Department Note Patient Name: Zuly Nieto Date of : 1975 47 year old female Treatment [facility] Primary Care Physician: Kwadwo Patel Patient Escorted by: Family [5] Mode of Arrival: Personal means [1] EMS Treatment Prior to ED Arrival: DIP UNIT OPERATOR treatment: None Travel and Exposure Screening: Symptoms Does patient have any of these symptoms?: (not recorded) Exposure Screening Has patient had contact with someone with a communicable disease in the last month?: (not recorded) Diseases exposed to:: (not recorded) Is Patient ?: (not recorded) Exposure Date: (not recorded) Chief Complaint: Chief Complaint Patient presents with Cellulitis History of Present Illness: Pt brought in by family for evaluation of left foot infection. They first noticed redness and a wound on top of her left foot approximately 4 days ago. She began feeling nauseated yesterday and began vomiting today. 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/01/2021 Diabetes mellitus Essential hypertension 05/01/2021 H/O kidney removal Right Hx of BKA, right Screening examination for STD (sexually transmitted disease) Tetanus received in last 5 years: Yes Childhood immunizations: Up-to-date Allergies: Allergies Allergen Reactions Amoxicillin Unknown - See comments Aspirin Hives Benadryl [Diphenhydramine Hcl] Hives Ciprofloxacin Hives Ivp Dye [Iodine And Iodide Containing Products] Anaphylaxis Penicillin Anaphylaxis Pt states, "I'll flatline" Tramadol Nausea and/or Vomiting drowsiness Mushroom Other - See comments "pass out" Past Social History: Tobacco Use Every Day; Cigarettes: Started 1989; 0.50 packs/day for 32.00 years Smokeless Tobacco: Never used smokeless tobacco. Alcohol Use Not Currently. Drug Use Never. Sexual Activity Sexually active; Partners: Male; Control/Protection: I.U.D.. Comments: last intercourse-07/27/2020 Past Surgical History: Past Surgical History: Procedure Laterality Date AMPUTATION LOW LEG THRU TIB/FIB SECTION TUBAL LIGATION Review of Systems: Review of Systems Constitutional: Positive for fatigue and fever. Respiratory: Negative for shortness of breath. Cardiovascular: Negative for chest pain. Gastrointestinal: Positive for nausea and vomiting. Negative for abdominal pain. Skin: Positive for color change and wound. Physical Exam: ED Triage Vitals [03/18/23 1720] Weight 88.9 kg (196 lb) Actual or estimated Estimated by patient/family report Height 1.499 m (4' 11") BP (!) 85/54 Pulse 112 Resp 18 Temp 38.2 ?C (100.8 ?F) Temp source Oral SpO2 97 % Measured on Room air Physical Exam Constitutional: General: She is not in acute distress. Appearance: Normal appearance. She is well-developed. She is obese. She is not ill-appearing or diaphoretic. HENT: Head: Normocephalic and atraumatic. Left Ear: External ear normal. Nose: Nose normal. Mouth/Throat: Mouth: Mucous membranes are moist. Neck: Trachea: No tracheal deviation. Cardiovascular: Rate and Rhythm: Normal rate and regular rhythm. Heart sounds: Normal heart sounds. No murmur heard. No friction rub. Pulmonary: Effort: Pulmonary effort is normal. No respiratory distress. Breath sounds: Normal breath sounds. No wheezing or rales. Chest: Chest wall: No tenderness. Abdominal: General: Bowel sounds are normal. There is no distension. Palpations: Abdomen is soft. Tenderness: There is no abdominal tenderness. There is no guarding or rebound. Musculoskeletal: General: Tenderness (left foot) present. No deformity. Normal range of motion. Cervical back: Normal range of motion. Lymphadenopathy: Cervical: No cervical adenopathy. Skin: General: Skin is warm and dry. Coloration: Skin is not pale. Findings: Erythema (left foot erythematous, warm and swollen with wound on dorsal aspect. images on chart.) present. No rash. Neurological: Mental Status: She is alert and oriented to person, place, and time. Coordination: Coordination normal. Psychiatric: Behavior: Behavior normal. Thought Content: Thought content normal. Judgment: Judgment normal. Radiology: No orders to display Lab Results: Lab Results CBC WITH DIFF - Abnormal Result Value Ref Range WBC 25.56 (*) 4.30 - 11.10 10*3/?L RBC 3.58 (*) 3.93 - 5.25 10*6/?L HGB 9.7 (*) 11.6 - 15.0 g/dL HCT 29.9 (*) 35.7 - 45.2 % MCV 83.5 80.6 - 95.5 fL MCH 27.1 25.9 - 32.8 pg MCHC 32.4 31.6 - 35.1 g/dL RDW-SD 44.2 39.0 - 49.9 fL RDW-CV 14.4 12.0 - 15.5 % PLT 480 (*) 166 - 358 10*3/?L MPV 9.4 (*) 9.5 - 12.9 fL NRBC/100 WBC 0.0 0.0 - 10.0 /100 WBCs NRBC x10^3 <0.01 10*3/?L SEG % 72 33 - 76 % BAND % 7 (*) 0 - 1 % LYMPH % 14 14 - 54 % MONO % 6 (*) 0 - 4 % EOS % 1 0 - 3 % ANC 20.19 (*) 1.88 - 7.09 10*3/uL COMP. METABOLIC PANEL (74832) - Abnormal NA 136 135 - 145 mmol/L K 5.3 (*) 3.5 - 5.0 mmol/L CL 104 98 - 108 mmol/L CO2 TOTAL 21 (*) 23 - 31 mmol/L AGAP 11 2 - 16 BUN 41 (*) 7 - 23 mg/dL GLUCOSE 66 (*) 70 - 110 mg/dL CREATININE 1.47 (*) 0.50 - 1.04 mg/dL TOTAL BILI 0.4 0.1 - 1.1 mg/dL CALCIUM 8.5 (*) 8.6 - 10.6 mg/dL T PROTEIN 7.5 6.3 - 8.2 g/dL ALBUMIN 3.7 3.5 - 5.0 g/dL ALK PHOS 99 34 - 122 U/L ALTv 16 5 - 35 U/L AST(SGOT) 16 13 - 40 U/L eGFR 37.8 mL/min/1.73m2 LACTIC ACID WHOLE BLOOD - Normal LACTIC ACID 1.31 0.50 - 2.20 mmol/L BLOOD CULTURE SCREEN BLOOD CULTURE SCREEN GLYCOSYLATED HEMOGLOBIN (A1C) MRSA / MSSA SCREEN BY PCR, NARES EKG: If EKG completed, see Procedure Note. Orders and Treatments: Orders Placed This Encounter Procedures XR FOOT 3+ VW LEFT CBC WITH DIFF COMP. METABOLIC PANEL (44393) BLOOD CULTURE SCREEN BLOOD CULTURE SCREEN Lactic Acid Whole Blood Glycosylated Hemoglobin (A1C) MRSA / MSSA SCREEN BY PCR, NARES Vancomycin Trough Level - Draw within 30 minutes prior to 4TH dose. Orders Placed This Encounter Medications NaCl 0.9% (NS) bolus infusion 1,000 mL vancomycin 1,250 mg in NaCl 0.9% (NS) 250 mL VIAL-MATE IV piggyback HYDROcodone-acetaminophen (NORCO) 10-325 mg tablet 1 tablet acetaminophen (TYLENOL) tablet 500 mg ondansetron (ZOFRAN-ODT) disintegrating tablet 4 mg enoxaparin (LOVENOX) injection 40 mg acetaminophen (TYLENOL) tablet 650 mg Sliding Scale Insulin - Lispro (HumaLOG) dextrose 50 % in water (D50W) injection 25 mL glucagon (GLUCAGEN DIAGNOSTIC KIT) injection 1 mg ondansetron (ZOFRAN (PF)) injection 4 mg HYDROcodone-acetaminophen (NORCO) 10-325 mg tablet 1 tablet vancomycin 1,250 mg in NaCl 0.9% (NS) 250 mL VIAL-MATE IV piggyback First Provider Eval: ED Events Date/Time Event User Comments 03/18/231721 Medical Screening Begins ROCIO RUDD -- 03/18/231721 First Provider Evaluation ROCIO RUDD -- No notes of EC Admission Criteria type on file. ED COURSE Diagnosis/Impression as of 03/18/231955 Cellulitis of left foot Procedures: Procedures MDM: Medical Decision Making Patient brought in for evaluation of cellulitis of her left foot. Redness and swelling began 4 days ago. She began feeling nauseated yesterday and had vomiting today. Low-grade fever. 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 WBC 25,000 Vancomycin started in the ER. X-ray of left foot pending at time of admission. Problems Addressed: Cellulitis of left foot: acute illness or injury Amount and/or Complexity of Data Reviewed Labs: ordered. Decision-making details documented in ED Course. Radiology: ordered. Risk OTC drugs. Prescription drug management. Decision regarding hospitalization. Flowsheet Documentation: Scoring Tools: No data recorded Disposition/Condition: ED Disposition ED Disposition Admit - Inpatient Condition -- Comment -- Electronically signed by: Sarah Goodman PAC 03/18/231955 Associated attestation - Drew Rodríguez MD - 03/18/2023 11:28 PM CDT Addendum I was personally available for consultation in the Emergency Department during this encounter and patient evaluation by JAGDISH Goodman. PA-PHYSICIAN ESTIMATOR JEWELRY MIDLEVEL PROVIDER [facility] 2023-03-18 15:39:33 Formatting of this n ote might be different from the original. Received forms from [facility], attached pass OV to form. Placed in provider folder to be sign and view. Beatris Lamb MA [facility] 2023-03-03 16:34:16 Formatting of this n ote might be different from the original. PA sent through covermymeds, waiting for determination. Lisinopril 10 mg Prema Ramos RN [facility] 2023-02-20 12:54:01 Formatting of this n ote might be different from the original. Rx sent, let patient know, and to follow-up as scheduled. [facility] 2023-02-20 09:07:02 Formatting of this n ote might be different from the original. You are scheduled to have: Transesophageal Echo ([facility]CELL-Transthoracic Echocardiogram) Date & Time of Procedure: 02/24/2023 --arrival time: 09:00 am [place]: [place] [address] You may park in the public parking garage or at the [address] [place] [address]. Where to go: On the day of your procedure, report to the admission desk located on the 1st floor. After you check in, you will be escorted to the Clinical Technician Holding/Recovery Area to get ready for your procedure. Description of Procedure: An intravenous line (IV) will be started. Any medicines you need including a mild sedative will be given through the line. We will give you a sedative to help you relax and will numb your throat with a spray. A soft flexible tube with a camera on the tip will be inserted through your throat. A video recording will be made so the doctor can review the procedure. The actual test takes about one (1) hour. We will monitor you for at least 30 minutes after the test. Listed below are some instructions for you to follow prior to the procedure: The day before your procedure, you will be notified what time to arrive. On the day of your procedure, do not wear any jewelry. Leave all valuables at home. Bring ONE adult family member or friend with you to drive you home. You will not be charity to drive for 48 hours after the procedure. We are unable to allow visitors under age 14 in the Clinical Technician holding/recovery room, so please make arrangement for small children. DO NOT eat or drink after midnight the night before your procedure, except you may have enough water to take your medicines. Bring a list of all current medications with you. Please avoid caffeine for 24 hours before your procedure. This includes coffee, tea, soft drinks, and some energy drinks or energy vitamin supplements. Medications Instructions Continue to take aspirin, Plavix (clopidogrel), Brilinta (ticagrelor), or Effient (prasugrel) as prescribed. DO NOT STOP these medicines. DO NOT take insulin or Lasix (furosemide) on the day of the procedure. Please do not take Erectile Dysfunction medicine such as Viagra (sildenafil), Cialis (tadalafil), or Levitra (vardenafil) for hours before your procedure. In order to reduce possible delay of your procedure, please make sure you have the proper bloodwork done within 30 days of your procedure date. Please call your physicians office or if you are an [facility] patient call the If you take anti rejections medicine, on the day of your bloodwork, do not take anti-rejection medicine until after the blood has been drawn. If you have further questions and/or need to cancel you appointment, please call your doctor's office. N Del Castillo RN [facility] - [facility] 2023-02-09 10:24:47 Formatting of this n ote might be different from the original. You are scheduled to have: Transesophageal Echo ([facility]CELL-Transthoracic Echocardiogram) Date & Time of Procedure: 02/10/2023 --arrival time: 06:30 am Address: [address] [place] [address] You may park in the public parking garage or at the [address] [place] [address]. Where to go: On the day of your procedure, report to the admission desk located on the 1st floor. After you check in, you will be escorted to the Clinical Technician Holding/Recovery Area to get ready for your procedure. Description of Procedure: An intravenous line (IV) will be started. Any medicines you need including a mild sedative will be given through the line. We will give you a sedative to help you relax and will numb your throat with a spray. A soft flexible tube with a camera on the tip will be inserted through your throat. A video recording will be made so the doctor can review the procedure. The actual test takes about one (1) hour. We will monitor you for at least 30 minutes after the test. Listed below are some instructions for you to follow prior to the procedure: The day before your procedure, you will be notified what time to arrive. On the day of your procedure, do not wear any jewelry. Leave all valuables at home. Bring ONE adult family member or friend with you to drive you home. You will not be charity to drive for 48 hours after the procedure. We are unable to allow visitors under age 14 in the Clinical Technician holding/recovery room, so please make arrangement for small children. DO NOT eat or drink after midnight the night before your procedure, except you may have enough water to take your medicines. Bring a list of all current medications with you. Please avoid caffeine for 24 hours before your procedure. This includes coffee, tea, soft drinks, and some energy drinks or energy vitamin supplements. Medications Instructions Continue to take aspirin, Plavix (clopidogrel), Brilinta (ticagrelor), or Effient (prasugrel) as prescribed. DO NOT STOP these medicines. DO NOT take insulin or Lasix (furosemide) on the day of the procedure. Please do not take Erectile Dysfunction medicine such as Viagra (sildenafil), Cialis (tadalafil), or Levitra (vardenafil) for hours before your procedure. In order to reduce possible delay of your procedure, please make sure you have the proper bloodwork done within 30 days of your procedure date. Please call your physicians office or if you are an [facility] patient call the If you take anti rejections medicine, on the day of your bloodwork, do not take anti-rejection medicine until after the blood has been drawn. If you have further questions and/or need to cancel you appointment, please call your doctor's office. N Del Castillo RN [facility] 2023-01-02 14:10:16 Formatting of this n ote is different from the original. Name/ MRN / Age / Gender: Zuly Nieto, [id number] 47 year old female BMI: Estimated body mass index is 39.19 kg/m? as calculated from the following: Height as of 12/23/22: 1.448 m (4' 9"). Weight as of 12/24/22: 82.1 kg (181 lb 1.6 oz). Allergies: Amoxicillin, Aspirin, Benadryl [diphenhydramine hcl], Ciprofloxacin, Ivp dye [iodine and iodide containing products], Penicillin, Tramadol, and Mushroom Last Vitals: BP Readings from Last 1 Encounters: 12/25/22 (!) 141/79 Pulse Readings from Last 1 Encounters: 12/25/22 94 SpO2 Readings from Last 1 Encounters: 12/25/22 95% Date of Surgery: Surgeon: * Surgery not found * Procedure: TRANSESOPHAGEAL ECHO ([facility]) ORDERABLE OR Location: * No surgery found * Anesthesia Preop Screen (no physical exam) Anesthesia Preop: Chart Review PONV Risk Factors: female Anesthesia History Anesthesia History Negative per Chart Review Previous Anesthetics/Airways Cardiovascular Comments: CC: MARCELL 12/24/2022 TTE Interpretation Summary Left?Ventricle: Left ventricle is normal in size and function. Normal wall thickness. Normal systolic function with a visually estimated EF of 55 - 60%. Normal diastolic function. Right?Ventricle: Right ventricle is normal in size and function. Normal wall thickness. Normal systolic function. Left?Atrium: Left atrium size is normal. Saline contrast shows no shunt. 12/23/2022 EKG Normal sinus rhythm Normal ECG When compared with ECG of 23-DEC-2022 16:19, (unconfirmed) No significant change has occurred METS Comments: Wheelchair dependence (+) Hypertension (+) Dyslipidemia Pulmonary (+) Asthma (+) Cigarette use ( now down from 1.5 PPD to 0.5 PPD) Recent URI: 12/04/2022. Neuro/Musculoskeletal Comments: 12/25/2022 Card Note: Cardiology consulted for MARCELL to assess for cardioembolic source for CVA. Patient with significant risk factors for atherosclerotic disease, less likely to be a cardioembolic stroke. At this time would recommend outpatient MARCELL, as even if PFO found would not proceed to close this inpatient if indicated for closure. 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 Diabetic polyneuropathy. Recurrent falls. RLS. (+) CVA (+) Headaches, migraines (+) Psychiatric history (Severe bahman) and depression, bipolar and other (+) Anxiety (+) Chronic pain: ( bilateral low back pain with bilateral sciatica) GI/Hepatic (+) GERD Hematology Comments: 12/23/22 16:23 RBC x10^6: 4.76 HGB: 12.6 HCT: 37.6 PLT x10^3: 412 (H) Renal Comments: 12/24/22 05:25 NA: 133 (L) K: 4.9 BUN: 19 CREATININE: 1.12 (H) H/o right nephrectomy Recurrent UTI Pyelonephritis of left kidney Hydronephrosis of left kidney (+) Renal disease ( stage 3) and CKD Skin Skin ROS Negative per Chart Review Endo/Other Comments: 12/23/2022 HGB A1C >14.0?High? (+) Diabetes Mellitus, Type 2, Rx Insulin and on oral meds Other (+) Cigarette use ( now down from 1.5 PPD to 0.5 PPD) TRAFFIC CHIEF TRAFFIC CHIEF ROS Negative per Chart Review Pediatric Pediatric N/A N/A Preoperative Medication Instructions Continue taking all prescribed medications except: BASIL inhibitors, ARBs, diuretics, all oral diabetes medications Anticoagulant Therapy: Defer to surgeons Insulin: Take 1/2 dose the night prior to surgery. Hold on DOS. Phentermine: Alert [facility] anesthesiologist SGLT2 Inhibitors: "gliflozins" to be held for 3 days prior to elective surgeries MAC Cases: Continue taking BASIL inhibitors and ARBs ASA Classification ASA: 4 Current Medications: Current Outpatient Medications Medication Sig Dispense Refill insulin glargine 100 unit/mL injection inject 30 Units under the skin at bedtime. 10 mL 0 insulin lispro, human, 100 unit/mL injection inject 5 Units under the skin in the morning and 5 Units at noon and 5 Units in the evening. inject with meals. Do all this for 30 days. 6 mL 0 blood sugar diagnostic (ACCU-CHEK GUIDE TEST STRIPS) strip Use as directed to test blood sugars four times per day 100 Each 0 Blood-Glucose Meter (ACCU-CHEK GUIDE GLUCOSE METER) Misc Use as directed 1 Each 0 clopidogreL 75 mg tablet Take 1 tablet by mouth in the morning for 30 days. 30 tablet 0 Insulin Syringe-Needle U-100 0.3 mL 31 x 3/8" Syrg Use as directed to inject insulin (lantus once per day, humalog three times per day) 1 Kit 0 lancets 33 gauge Misc Use as directed to test blood sugars four times per day 100 Each 0 amitriptyline 100 mg tablet Take 1 tablet by mouth at bedtime. 90 tablet 1 atorvastatin 80 mg tablet Take 1 tablet by mouth at bedtime. 90 tablet 1 lisinopriL 10 mg tablet Take 1.5 tablets by mouth in the morning. Hold if BP < 110/60 145 tablet 1 metFORMIN 1,000 mg tablet Take 1 tablet by mouth in the morning and 1 tablet in the evening. Take with meals. 180 tablet 1 nicotine 14 mg/24 hr patch Apply 1 Patch to area(s) every 24 (twenty-four) hours. Apply 21mg patch daily x 6 weeks; then apply 14mf patch daily x 2 weeks; then apply 7mg patch daily x 2 weeks. Stop smoking on initiation of therapy 14 Patch 0 nicotine 21 mg/24 hr patch Apply 1 Patch to area(s) in the morning. Apply 21mg patch daily x 6 weeks; then apply 14mf patch daily x 2 weeks; then apply 7mg patch daily x 2 weeks. Stop smoking on initiation of therapy 42 Patch 1 nicotine 7 mg/24 hr patch Apply 1 Patch to area(s) every 24 (twenty-four) hours. Apply 21mg patch daily x 6 weeks; then apply 14mf patch daily x 2 weeks; then apply 7mg patch daily x 2 weeks. Stop smoking on initiation of therapy 14 Patch 0 SITagliptin phosphate (JANUVIA) 100 mg tablet Take 1 tablet by mouth in the morning. 90 tablet 1 txihysrlsv-erdjdyfniqrlb-dc ff 50-325-40 mg tablet TAKE 1 CAPSULE BY MOUTH EVERY 8 HOURS NEEDED FOR MIGRAINE 90 tablet 2 omeprazole 40 mg capsule Take 1 capsule by mouth in the morning. 90 capsule 1 [employer] [facility] Standard rollator R55/W19.XXXS/M79.604/R06.02/ I50.32/I51.7/E11.3511: Use daily for ambulation/fall precaution 1 Each 0 Walker (ULTRA-LIGHT ROLLATOR) [facility] R55/W19.XXXS/M79.604/R06.02/ I50.32/I51.7/E11.3511: Use daily for ambulation/fall precaution (brand pending insurance approval) 1 Each 0 [facility] [employer] Kit I10 - Dispense blood pressure cuff (any brand), take BP at home BID 1 Kit 0 ALBUTEROL 90 mcg/actuation inhaler INHALE 2 PUFFS BY MOUTH EVERY 6 HOURS NEEDED FOR SHORTNESS OF BREATH 8.5 g 1 HYDROcodone-acetaminophen 7.5-325 mg per tablet Take 1 tablet by mouth 2 (two) times daily. No current facility-administered medications for this visit. Previous Surgeries: Past Surgical History: Procedure Laterality Date AMPUTATION LOW LEG THRU TIB/FIB SECTION TUBAL LIGATION Physical Exam Anesthesia Plan ASA Status: 4 Raya Marina RN [facility]
[2024-03-03] MEDS ORDERED: ONDANSETRON 4 MG/2 ML VIAL ONE (20:58)
[2024-03-03] MEDS ORDERED: MORPHINE 4 MG/ML SYR ONE (20:58)
[2024-03-03] MEDS ORDERED: NA CHLORIDE 0.9% 2,000 ML ONE (20:59)
[2024-03-03] MEDS ORDERED: MORPHINE 2 MG/ML SYR ONE (20:59)
[2024-03-03 21:04] LABS: Absolute Basophils 0.1 K/uL (0-0.5); Absolute Eosinophils 0.5 K/uL (0-0.5); Absolute Lymphocytes (CBC) 3.4 K/uL (0.7-4.9); Absolute Monocytes 0.6 K/uL (0.1-1.3); Absolute Neutrophil 7.8 K/uL (1.8-8.0); Basophils % 0.8 % (0-1.3); Eosinophils % 4.1 % (0-4.4); Hematocrit 29.8 % (36.0-45.0); Lymphocytes % 27.4 % (15.3-44.8); MCH 26.4 pg (27.0-35.0); MCHC 33.4 g/dL (32.0-36.0); MPV 7.2 fL (7.6-11.3); Monocytes % 5.1 % (3.3-12.3); Neutrophils % 62.6 % (41.7-73.7); Nucleated Red Blood Cells % 0.1 % (0-0); Platelets 385 thou/uL (152-406); RBC Red Blood Cell Count 3.78 M/uL (3.86-4.86); Red Cell Distribution Width 14.5 % (12.1-15.2)
[2024-03-03 21:27] LABS: ALT/SGPT 22 U/L (13-56); AST/SGOT 16 U/L (15-37); Albumin 2.5 g/dL (3.4-5.0); Albumin/Globulin Ratio 0.7 (1.1-1.8); Alkaline Phosphatase 111 U/L (45-117); Anion Gap 12.9 mEq/L (5.0-15.0); BUN Blood Urea Nitrogen 29 mg/dL (7-18); Bicarbonate 21 mEq/L (21-32); Globulin 3.8 g/dL (2.3-3.5); Glomerular Filtration Rate 48 ml/min (=/>90); Lipase 61 U/L (13-75); Potassium 4.9 mEq/L (3.5-5.1); Protein, Total 6.3 g/dL (6.4-8.2); Sodium Level 137 mEq/L (136-145)
[2024-03-03 21:28] LABS: Bilirubin Total < 0.2 mg/dL (0.2-1.0); Glucose Level 443 mg/dL (74-106)
--- NOTE | 2024-03-03 21:45 | RAD REPORT ---
EXAM DESCRIPTION: CT - Abdomen Pelvis Wo Contrast - 03/03/2024 8:22 pm CLINICAL HISTORY: left flank pain COMPARISON: [facility] Protocol dated 04/18/2022; [facility] Protocol dated 12/31/2021; [facility] Protocol dated 10/11; [facility] Protocol dated 04/17/2018 TECHNIQUE: Thin cut axial CT imaging of the abdomen and pelvis was performed without IV contrast. Mu ltiplanar reformats were generated and reviewed. All CT scans are performed using dose optimization technique as appropriate and may include automated exposure control or mA/KV adjustment according to patient size. FINDINGS: No suspicious findings in the lung bases. The liver, spleen, and pancreas show no suspicious findings. Gallbladder and biliary tree are also wi thout suspicious finding. Status post right nephrectomy. No upper left renal suspicious parenchymal findings within limits of n oncontrast technique. No evidence of radiopaque calculi or hydroureteronephrosis. No dilated bowel loops or bowel wall thickening. Diastasis recti. No free air, free fluid or inflamma tory stranding. No hernia, mass or bulky lymphadenopathy. IUD in place. The urinary bladder is withou t significant finding. No suspicious bony findings. IMPRESSION: No acute intra-abdominal process.
[2024-03-03] MEDS ORDERED: methocarbamoL 750 MG TAB ONE (22:17)
[2024-03-03] MEDS ORDERED: INSULIN REGULAR (HUMAN) 100 UNIT/ML ONE (22:18)
[2024-03-03] MEDS ORDERED: HYDROCODONE/APAP 10/325 TAB ONE (22:18)
[2024-03-03 22:51] LABS: Specific Gravity 1.014 (1.005-1.030); Urine Bacteria <20 /HPF (<20); Urine Bilirubin NEGATIVE (Negative); Urine Blood Trace (Negative); Urine Clarity Extremely Turbid (Clear); Urine Color Colorless (Yellow); Urine Culture Reflex Order NOT NEEDED; Urine Glucose 4+ (Over) (Negative); Urine Ketones NEGATIVE (Negative); Urine Microscopic Reflex YN ORDER UMIC; Urine Mucus Slight /HPF (None Seen); Urine Nitrite NEGATIVE (Negative); Urine Protein 3+ (Negative); Urine RBC <5 /HPF (None Seen); Urine Urobilinogen Normal (Normal); Urine WBC <5 /HPF (<5); Urine Yeast (Budding) Trace /HPF (None Seen); Urine pH 6.5 (5.0-7.0)
--- NOTE | 2024-03-03 23:02 | EDPHYS ---
Physician Documentation [facility] Name: Barb Cortez Age: 48 yrs Sex: Female : 1975 Arrival Date: 03/03/2024 Time: 20:07 Bed 17 Private MD: ED Physician Ulysses Weinstein HPI: 03/03 20:11 This 48 yrs old Female presents to ER via Unassigned with complaints of Left sp4 flank pain / Kidney pain. 20:16 48-year-old female with history of nephrectomy and poorly controlled diabetes history sp4 of right below-knee amputation, transferred worsening left flank pain left posterior back pain starting 1 week ago. Describes a sharp persistent pain to left posterior back and left flank. Patient states she has history of right nephrectomy. EMS reported blood sugar in excess of 500. Patient states she takes as needed hydrocodone at home for pain which does not help her.. . Historical: - Allergies: 20:17 Aspirin; sp4 20:17 Benadryl; sp4 20:17 Ciprofloxacin; sp4 20:17 IV contrast; sp4 20:17 PENICILLINS; sp4 20:17 Toradol; sp4 20:17 Tramadol HCl; sp4 - PMHx: 20:17 Bipolar disorder; chronic kidney disease; Depression; Diabetes - IDDM; Hyperlipidemia; sp4 Hypertension; Kidney stones; Migraines; - PSHx: 20:17 Amputated below knee; right kidney removal; right; sp4 - Family history:: not pertinent. ROS: 20:18 Constitutional: Negative for fever, chills, and weight loss, positive left flank pain sp4 positive left posterior back pain 20:18 All other systems are negative, Exam: 20:18 Constitutional: This is a well developed, well nourished patient who is awake, alert, sp4 and in no acute distress. Patient is chronically debilitated female with right below-knee amputation, left lower extremity chronic edema. Head/Face: Normocephalic, atraumatic. Eyes: Pupils equal round and reactive to light, extra-ocular motions intact. Lids and lashes normal. Conjunctiva and sclera are not injected. Cornea within normal limits. Periorbital areas with no swelling, redness, or edema. ENT: Nares patent. No nasal discharge, no septal abnormalities noted. Tympanic membranes are normal and external auditory canals are clear. Oropharynx with no redness, swelling, or masses, exudates, or evidence of obstruction, uvula midline. Mucous membranes moist. Neck: Trachea midline, no thyromegaly or masses palpated, and no cervical lymphadenopathy. Supple, full range of motion without nuchal rigidity, or vertebral point tenderness. Chest/axilla: Normal chest wall appearance and motion. Nontender with no deformity. No lesions are appreciated. Cardiovascular: Regular rate and rhythm with a normal S1 and S2. No gallops, murmurs, or rubs. Normal PMI, no JVD. No pulse deficits. Respiratory: Lungs have equal breath sounds bilaterally, clear to auscultation and percussion. No rales, rhonchi or wheezes noted. No increased work of breathing, no retractions or nasal flaring. Abdomen/GI: Soft, with normal bowel sounds. No distension or tympany. No guarding or rebound. No evidence of tenderness throughout. Back: No spinal tenderness. No costovertebral tenderness. Skin: Warm, dry with normal turgor. Normal color with no rashes, no lesions, and no evidence of cellulitis. MS/ Extremity: Pulses equal, no cyanosis. Neurovascular intact. Positive for right below-knee amputation, no sign of diabetic foot ulcers. Chronic appearing left lower extremity edema without PT Neuro: Awake and alert, GCS 15, oriented to person, place, time, and situation. Cranial nerves II-XII grossly intact. Motor strength 5/5 in all extremities. Sensory grossly intact. Psych: Awake, alert, with orientation to person, place and time. Behavior, mood, and affect are within normal limits Vital Signs: 20:40 BP 157 / 68; Pulse 92; Resp 18; Temp 98.7; Pulse Ox 100% ; Weight 86.18 kg; Height 4 [facility] ft. 9 in. ; Pain 10/10; 22:11 BP 152 / 72; Pulse 92; Resp 16; Pulse Ox 100% ; Pain 7/10; 12 23:40 BP 158 / 77; Pulse 98; Resp 18; Pulse Ox 100% ; Pain 2/10; [facility] 20:40 Body Mass Index 41.12 (86.18 kg, 144.78 cm) [facility] 20:40 Pain Scale: Adult [facility] 22:11 Pain Scale: Adult jm12 23:40 Pain Scale: Adult jm12 [place] Coma Score: 20:18 Eye Response: spontaneous(4). Motor Response: obeys commands(6). Verbal Response: sp4 oriented(5). Total: 15. MDM: 20:15 Patient medically screened. sp4 23:02 ED course: EXAM DESCRIPTION: CT - Abdomen Pelvis Wo Contrast - 03/03/2024 8:22 pm sp4 CLINICAL HISTORY: left flank pain COMPARISON: Stone Protocol dated 04/18/2022; [facility] Protocol dated 12/31/2021; [facility] Protocol dated 10/28/2021; [facility] Protocol dated 04/17/2018 TECHNIQUE: Thin cut axial CT imaging of the abdomen and pelvis was performed without IV contrast. Multiplanar reformats were generated and reviewed. All CT scans are performed using dose optimization technique as appropriate and may include automated exposure control or mA/KV adjustment according to patient size. FINDINGS: No suspicious findings in the lung bases. The liver, spleen, and pancreas show no suspicious findings. Gallbladder and biliary tree are also without suspicious finding. Status post right nephrectomy. No upper left renal suspicious parenchymal findings within limits of noncontrast technique. No evidence of radiopaque calculi or hydroureteronephrosis. No dilated bowel loops or bowel wall thickening. Diastasis recti. No free air, free fluid or inflammatory stranding. No hernia, mass or bulky lymphadenopathy. IUD in place. The urinary bladder is without significant finding. No suspicious bony findings. IMPRESSION: No acute intra-abdominal process.. 23:02 Differential diagnosis: Cholelithiasis, diverticulitis, gastritis, Hepatitis, Herpes sp4 Zoster. Data reviewed: vital signs, nurses notes, EMS record, lab test result(s), radiologic studies, CT scan. Consideration of Admission/Observation Escalation of care including admission/observation considered. ED course: Has proteinuria but no sign of pyelonephritis, no sign of kidney infection, no sign of kidney stone, stable for discharge home. Musculoskeletal pain most likely diagnosed. 03/03 20:12 Order name: CBC with Diff; Complete Time: 21:47 sp4 03/03 20:12 Order name: CMP; Complete Time: 21:47 sp4 03/03 20:12 Order name: Lipase; Complete Time: 21:47 sp4 03/03 20:12 Order name: Urinalysis w/ reflexes; Complete Time: 22:54 sp4 03/03 20:49 Order name: Glucose, Ancillary Testing; Complete Time: 21:47 EDMS 03/03 20:12 Order name: CT Abd/Pelvis - Without Contrast; Complete Time: 21:47 sp4 03/03 20:12 Order name: IV Saline Lock; Complete Time: 21:07 sp4 03/03 20:12 Order name: Labs collected and sent; Complete Time: 21:07 sp4 03/03 20:13 Order name: Accucheck Blood Glucose; Complete Time: 20:59 sp4 Administered Medications: 22:10 Discontinued: ns 0.9% 1000 ml IV at 1 bolus Per protocol; [address] [facility] 20:58 Drug: NS 0.9% IV 1000 ml IV at 125 ml/hr continuous Route: IV; Rate: 125 ml/hr; Site: [facility] right hand; 23:32 Follow up: IV Status: Completed infusion; IV Intake: 300ml [facility] 21:07 Drug: morphine IVP or IV 6 mg IVP once over 4 mins Route: IVP; Infused Over: 4 mins; [facility] Site: right hand; 22:10 Follow up: Response: Marked relief of symptoms; Pain is decreased [facility] 21:07 Drug: NS 0.9% IV 1000 ml IV at 1 bolus Per protocol; 1000 mL bolus Route: IV; Rate: 1 jm12 bolus; Site: right hand; 22:10 Follow up: IV Status: Completed infusion; IV Intake: 1000ml [facility] 21:07 Drug: Ondansetron IVP 4 mg IVP once; over 2 minutes Route: IVP; Site: right hand; [facility] 22:30 Drug: Insulin Regular Human IVP 5 units IVP once {Co-Signature: [email or web address] (Parker Paul [facility] RN).} Route: IVP; Site: left upper arm; 22:30 Drug: [place] PO 10 mg-325 mg 1 tabs PO once Route: PO; [facility] 23:00 Follow up: Response: No adverse reaction; Marked relief of symptoms [facility] 22:30 Drug: Methocarbamol PO 750 mg PO once Route: PO; [facility] 23:49 Not Given (Patient Refused): [id number] mg PO once [facility] Disposition Summary: 03/03/24 23:01 Discharge Ordered Notes: Location: Home sp4 Problem: new sp4 Symptoms: have improved sp4 Condition: Stable sp4 Diagnosis - Low back pain sp4 - Acute left thoracic to lumbar pain, acute musculoskeletal pain, Chronic kidney sp4 disease Followup: sp4 - With: Private Physician - When: 7 - 10 days - Reason: Recheck today's complaints Discharge Instructions: - Discharge Summary Sheet sp4 - Acute Back Pain, Adult sp4 Forms: - Patient Portal Instructions sp4 Prescriptions: - promethazine 25 mg Oral tablet - take 1 tablet ORAL route every 6 hours As needed PRN nausea; 30 tablet; sp4 Refills: 0, Product Selection Permitted - methocarbamol 750 mg Oral tablet - take 2 tablets ORAL route every 8 hours for 14 days PRN muscular pain; 60 sp4 tablet; Refills: 0, Product Selection Permitted Signatures: Dispatcher [employer] Ulysses Bautista MD MD sp4 Corin Ybarra RN RN jm12 Parker Paul RN rg5
--- NOTE | 2024-03-03 23:02 | ER ---
Nurse's Notes [facility] Name: Barb Cortez Age: 48 yrs Sex: Female : 1975 Arrival Date: 03/03/2024 Time: 20:07 Bed 17 Private MD: Diagnosis: Low back pain;Acute left thoracic to lumbar pain, acute musculoskeletal pain, Chronic kidney disease Presentation: 03/03 20:37 Chief complaint: Patient states: back pain. Coronavirus screen: At this time, the [facility] client does not indicate any symptoms associated with coronavirus-19. Ebola Screen: No symptoms or risks identified at this time. Risk Assessment: Do you want to hurt yourself or someone else? Patient reports no desire to harm self or others. 20:37 Method Of Arrival: EMS [facility] 20:37 Acuity: HARI 3 [facility] Triage Assessment: 20:48 General: Appears in no apparent distress. Behavior is calm, cooperative. Pain: [facility] Complains of pain in abdomen. EENT: No deficits noted. No signs and/or symptoms were reported regarding the EENT system. Neuro: No deficits noted. Cardiovascular: No deficits noted. Respiratory: No deficits noted. GI: No deficits noted. No signs and/or symptoms were reported involving the gastrointestinal system. : Reports left flank pain. Musculoskeletal: Reports pain in back. Historical: - Allergies: 20:17 Aspirin; sp4 20:17 Benadryl; sp4 20:17 Ciprofloxacin; sp4 20:17 IV contrast; sp4 20:17 PENICILLINS; sp4 20:17 Toradol; sp4 20:17 Tramadol HCl; sp4 - PMHx: 20:17 Bipolar disorder; chronic kidney disease; Depression; Diabetes - IDDM; Hyperlipidemia; sp4 Hypertension; Kidney stones; Migraines; - PSHx: 20:17 Amputated below knee; right kidney removal; right; sp4 - Family history:: not pertinent. Screenin:51 [facility] ED Fall Risk Assessment (Adult) History of falling in the last 3 months, [facility] including since admission No falls in past 3 months (0 pts) Confusion or Disorientation No (0 pts) Intoxicated or Sedated No (0 pts) Impaired Gait Yes (1 pt) Mobility Assist Device Used Yes (1 pt) Altered Elimination No (0 pt) Score/Fall Risk Level 3 or more points = High Risk Oriented to surroundings, Maintained a safe environment, Educated pt \T\ family on fall prevention, incl call for assistance when getting out of bed, Assessed \T\ reinforced patient's understanding of fall precautions, Provided non-skid footwear, Hourly rounding (assess needs \T\ fall precautionary measures) done, Used ambulatory aids as needed (educated on \T\ assisted with), Used gait belt as appropriate. Assessment: 20:50 General: Appears in no apparent distress. Behavior is calm, cooperative. Pain: 12 Complains of pain in back. Neuro: No deficits noted. Cardiovascular: No deficits noted. Respiratory: No deficits noted. GI: No deficits noted. No signs and/or symptoms were reported involving the gastrointestinal system. EENT: No deficits noted. No signs and/or symptoms were reported regarding the EENT system. Derm: No deficits noted. No signs and/or symptoms reported regarding the dermatologic system. Musculoskeletal: Reports pain in back. Vital Signs: 20:40 BP 157 / 68; Pulse 92; Resp 18; Temp 98.7; Pulse Ox 100% ; Weight 86.18 kg; Height 4 12 ft. 9 in. ; Pain 10/10; 22:11 BP 152 / 72; Pulse 92; Resp 16; Pulse Ox 100% ; Pain 7/10; jm12 23:40 BP 158 / 77; Pulse 98; Resp 18; Pulse Ox 100% ; Pain 2/10; jm12 20:40 Body Mass Index 41.12 (86.18 kg, 144.78 cm) jm12 20:40 Pain Scale: Adult [facility] 22:11 Pain Scale: Adult [facility] 23:40 Pain Scale: Adult 12 [place] Coma Score: 20:18 Eye Response: spontaneous(4). Motor Response: obeys commands(6). Verbal Response: sp4 oriented(5). Total: 15. ED Course: 20:10 Patient arrived in ED. rv1 20:11 Ulysses Weinstein MD is Attending Physician. sp4 20:23 CT Abd/Pelvis - Without Contrast In Process Unspecified. EDMS 20:38 Triage completed. jm12 20:40 Inserted saline lock: 22 gauge in right hand, using aseptic technique. Blood collected. jm12 Flushed with 10 mL NS. 20:50 Arm band placed on. jm12 22:10 Urinalysis w/ reflexes Sent. jm12 23:52 IV discontinued, intact, bleeding controlled, No redness/swelling at site. Pressure jm12 dressing applied. Administered Medications: 22:10 Discontinued: ns 0.9% 1000 ml IV at 1 bolus Per protocol; 1000 mL bolus jm12 20:58 Drug: NS 0.9% IV 1000 ml IV at 125 ml/hr continuous Route: IV; Rate: 125 ml/hr; Site: [facility] right hand; 23:32 Follow up: IV Status: Completed infusion; IV Intake: 300ml jm 21:07 Drug: morphine IVP or IV 6 mg IVP once over 4 mins Route: IVP; Infused Over: 4 mins; [facility] Site: right hand; 22:10 Follow up: Response: Marked relief of symptoms; Pain is decreased jm 21: Drug: NS 0.9% IV 1000 ml IV at 1 bolus Per protocol; 1000 mL bolus Route: IV; Rate: 1 jm12 bolus; Site: right hand; 22:10 Follow up: IV Status: Completed infusion; IV Intake: 1000ml [facility] 21:07 Drug: Ondansetron IVP 4 mg IVP once; over 2 minutes Route: IVP; Site: right hand; jm12 22:30 Drug: Insulin Regular Human IVP 5 units IVP once {Co-Signature: [email or web address] (Parker Paul [facility] RN).} Route: IVP; Site: left upper arm; 22:30 Drug: [place] PO 10 mg-325 mg 1 tabs PO once Route: PO; [facility] 23:00 Follow up: Response: No adverse reaction; Marked relief of symptoms [facility] 22:30 Drug: Methocarbamol PO 750 mg PO once Route: PO; jm12 23:49 Not Given (Patient Refused): [id number] mg PO once [facility] Intake: 22:10 IV: 1000ml; Total: 1000ml. jm12 23:32 IV: 300ml; Total: 1300ml. [facility] Outcome: 23:01 Discharge ordered by MD. emanuel 23:52 Discharged to home via wheelchair, [facility] 23:52 Condition: stable 23:52 Discharge instructions given to patient, family, Instructed on discharge instructions, follow up and referral plans. medication usage, Demonstrated understanding of instructions, follow-up care, medications, Prescriptions given X 2, 23:53 Patient left the ED. [facility] Signatures: Dispatcher [employer] Silvia José rv1 Ulysses Weinstein MD MD sp4 Corin Ybarra RN RN jm12 Parker Paul RN rg5
[2024-03-04 00:19] VITALS: TEMP 98.7; O2SAT 100
[2024-03-04 00:31] VITALS: BP 158/77
== END 2024-03-03 23:53 | disposition home or self-care (01) ==
LOC: ER 20:07
DX: M54.50 Low back pain, unspecified (principal); M54.6 Pain in thoracic spine; M79.18 Myalgia, other site; I12.9 Hypertensive chronic kidney disease with stage 1 through stage 4 chronic kidney disease, or unspecified chronic kidney disease; E11.22 Type 2 diabetes mellitus with diabetic chronic kidney disease; N18.9 Chronic kidney disease, unspecified; E78.5 Hyperlipidemia, unspecified; Z88.0 Allergy status to penicillin; Z88.5 Allergy status to narcotic agent; Z88.8 Allergy status to other drugs, medicaments and biological substances; Z91.041 Radiographic dye allergy status; Z90.5 Acquired absence of kidney; Z89.511 Acquired absence of right leg below knee
CPT/HCPCS: 85025; 81001; 36415; 82947; 83690; 80053; 74176; 99284; J2270; J2405; J7030

== ENCOUNTER 2024-05-25 15:34 | Emergency (ER) | payer OTHER ==
--- OUTSIDE RECORDS SUMMARY | 2024-05-25 15:44 | XMS REPORT | Continuity of Care Document ---
Author Name Unknown Address [address] [facility] [place] [address] [facility] thconnect Address [address] [facility] [place] [address] Care Team Providers Care Administrative Clerk Name Role Phone Kwadwo Patel MD Primary Care Physician [phone] Kwadwo Patel MD Attending Clinician + Corin Alfaro Attending Clinician + Kwadwo Patel MD Attending Clinician + Corin Alfaro Attending Clinician + JANEE SOTELO Attending Clinician Unavail able KWADWO PATEL Attending Clinician Unavailable CORIN CHAN Attending Clinician Unavailable 2, [facility] Attending Clinician Unavailable Skinny Lind NP Attending Clinician + SKINNY LIND Attending Clinician Unavailab le Doctor Unassigned, [place] Attending Clinician U navailable OBI-HARDIK, ALICE Attending Clinician Unavailab le OBI-HARDIK, ALICE Attending Clinician Unavailab karen Biggs RN, Ema Attending Clinician Unavailab karen Smith RN, Marely Attending Clinician Unavailable Galindo BESS, Dina Street Attending Clinician [phone] ROSI JONES Attending Clinician Unavailable Maxine PAC, K Shazia Attending Clinician [phone] Rosi Jones DO Attending Clinician [phone] Jaja BIGGS, Foreign Ga Attending Clinician + [phone] GERI DARDEN Attending Clinician Unavail able Deny MON, Geri Huerta Attending Clinician [phone] Raya Marina RN Attending Clinician Unavaila willis Duenas MD, Valerio Attending Clinician [phone] Nurse, Clc Echo Attending Clinician Unavailable Call, [facility] Phone Attending Clinician Unavail able EDY COWAN Attending Clinician Unavail able EDY COWAN Attending Clinician Unavail able PRIMITIVO REYNOLDS Attending Clinician Unavailable PRIMITIVO REYNOLDS Attending Clinician Unavailable Rebel MON, Jose Attending Clinician [phone] Adolfo Cedeño MD Attending Clinician +[phone] Ni [facility], Trevor Carrasquillo Attending Clinici an AYO JOYNER Attending Clinician Unavailable Ayo Joyner MD Attending Clinician [phone] MASHA AVILA Attending Clinician Unavailab Masha Chatman DO Attending Clinician + [phone] Romelia BESS, Alize Street Attending Clinician Unavailable Pob, [facility] Main Attending Clinician UnavailTALA Hughes Attending Clinician Unavailable Tala Aquino MD Attending Clinician [phone] King SERGIO MD, James C Attending Clinician +[phone] Unknown, Attending Attending Clinician Unavailab LEX Chase III Attending Clinician Unavailkym Martínez MD, Cindy Attending Clinician [phone] DRISS CROW Attending Clinician Unavailable DRISS CROW Attending Clinician Unavailable SUNSHINE ZHU Attending Clinician UnavailCINDY Bennett Attending Clinician Unavailable CHEVY RODRÍGUEZ Attending Clinician Unavailable Chevy Rodríguez MD Attending Clinician +[phone] JUAN RAMON VELA Attending Clinician Unavailable DAYTON HAYES Attending Clinician Unavailab Sunshine Phipps MD Attending Clinician [phone] ERMA RAE Attending Clinician Unavailable Erma Swanson S Attending Clinician [phone] Verónica Garcia MD Attending Clinician +[phone] JESSICA BRITT Attending Clinician Unavailable SHALONDA BURGESS Attending Clinician Unavailable KARINA TEJEDA Attending Clinician UnavailYVES [place]berry Attending Clinician Unavailable JESSICA BRANTLEY Attending Clinician Unavailable MARIYA PEREZ Attending Clinician UnavailBurak Alonso MD Attending Clinician [phone] Mariya Perez MD Attending Clinician +[phone] JAY WRIGHT Attending Clinician Unavailab ANALIA Luna Attending Clinician UnavailROSI Lujan Admitting Clinician Unavailable Rosi Jones DO Admitting Clinician [phone] PRIMITIVO REYNOLDS Admitting Clinician Unavailable AYO JOYNER Admitting Clinician Unavailable CHEVY RODRÍGUEZ Admitting Clinician Unavailable BLAZE ABRAMS Admitting Clinician Unavailable Payers Payer Name Policy Type Policy Number Effective Date Expirati on Date Source [facility] [id number] 2018 00:00:00 Problems Condition Name Condition Details Condition Category Status Onset Date Resolution Date Last Treatment Date Treating Clinician Comments Source Cellulitis of left foot Cellulitis of left foot Disease Active 03-27 00:00: 00 [facility] 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 Disease Active 03-27 00:00: 00 [facility] 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 Disease Active 03-27 00:00: 00 [facility] Sepsis Sepsis Disease Active 03-18 00:00: 00 [facility] Obesity (BMI 30-39.9) Obesity (BMI 30-39.9) Disease Active 6- 00:00: 00 [facility] Slurred speech Slurred speech Disease Active 6- 00:00: 00 [facility] Recurrent UTI Recurrent UTI Disease Active 6- 00:00: 00 [facility] Knee buckling, left Knee buckling, left Disease Active 6- 00:00: 00 [facility] Non-compli ance with treatment Non-compli ance with treatment Disease Active 6 00:00: 00 [facility] Asthma Asthma Disease Active 3- 00:00: 00 [facility] Gastroesop hageal reflux disease Gastroesop hageal reflux disease Disease Active 3- 00:00: 00 [facility] Major depressive disorder, single episode, unspecifie d Major depressive disorder, single episode, unspecifie d Disease Active 3-07 00:00: 00 [facility] Pure hyperchole sterolemia Pure hyperchole sterolemia Disease Active 3-07 00:00: 00 [facility] GERD without esophagiti s GERD without esophagiti s Disease Active 3-07 00:00: 00 [facility] Sepsis secondary to UTI Sepsis secondary to UTI Disease Active 2021-07 0-21 00:00: 00 [facility] Recurrent falls while walking Recurrent falls while walking Disease Active 2021-07 0-21 00:00: 00 [facility] Influenza vaccine needed Influenza vaccine needed Disease Active 2021-07 0-21 00:00: 00 [facility] Hydronephr osis of left kidney Hydronephr osis of left kidney Disease Active 2021-07 0-21 00:00: 00 [facility] Hyperkalem ia Hyperkalem ia Disease Active 2021-07 0-06 00:00: 00 [facility] ERICKA (acute kidney injury) ERICKA (acute kidney injury) Disease Active 2021-07 0-06 00:00: 00 [facility] ERICKA (acute kidney injury) ERICKA (acute kidney injury) Disease Active 2021-07 0-06 00:00: 00 [facility] Pyelonephr itis of left kidney Pyelonephr itis of left kidney Disease Active 4- 00:00: 00 [facility] Hospital discharge follow-up Hospital discharge follow-up Disease Active 4- 00:00: 00 [facility] Elevated serum creatinine Elevated serum creatinine Disease Active 4 00:00: 00 [facility] Dehydratio n Dehydratio n Disease Active 08-08 00:00: 00 [facility] Nicotine dependence with current use Nicotine dependence with current use Disease Active 08-08 00:00: 00 [facility] Nicotine dependence with current use Nicotine dependence with current use Disease Active 08-08 00:00: 00 [facility] Contusion of left lower extremity, sequela Contusion of left lower extremity, sequela Disease Active 2020-07 0- 00:00: 00 [facility] Pre-operat yari clearance Pre-operat yari clearance Disease Active 2020-07 0-20 00:00: 00 [facility] 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 Disease Active 2020-07 0-20 00:00: 00 [facility] Need for hepatitis C screening test Need for hepatitis C screening test Disease Active 2020-07 0-20 00:00: 00 [facility] Dyslipidem ia Dyslipidem ia Disease Active 2020-07 0-20 00:00: 00 [facility] Essential hypertensi on Essential hypertensi on Disease Active 2020-07 0-20 00:00: 00 [facility] Fall, sequela Fall, sequela Disease Active 2020-07 0-20 00:00: 00 [facility] Decay, teeth Decay, teeth Disease Active 2020-07 0-20 00:00: 00 [facility] Contusion of left lower extremity, sequela Contusion of left lower extremity, sequela Disease Active 2020-07 0-20 00:00: 00 [facility] Bipolar disorder with severe bahman Bipolar disorder with severe bahman Disease Active 6-04 00:00: 00 [facility] Wheelchair dependence Wheelchair dependence Disease Active 3-02 00:00: 00 [facility] Phantom limb pain Phantom limb pain Disease Active 3-02 00:00: 00 [facility] Diabetic polyneurop athy associated with type 2 diabetes mellitus Diabetic polyneurop athy associated with type 2 diabetes mellitus Disease Active 3-02 00:00: 00 [facility] Wheelchair dependence Wheelchair dependence Disease Active 3-02 00:00: 00 [facility] Anxiety and depression Anxiety and depression Disease Active 3-02 00:00: 00 [facility] Presence of intrauteri ne contracept yari device Presence of intrauteri ne contracept yari device Disease Active - 00:00: 00 [facility] Encounter for surveillan ce of contracept angel, unspecifie d contracept yari Encounter for surveillan ce of contracept angel, unspecifie d contracept yari Disease Active - 00:00: 00 [facility] Diabetic eye exam Diabetic eye exam Disease Active - 00:00: 00 [facility] Morbid obesity Morbid obesity Disease Active 21 00:00: 00 [facility] Morbid obesity with body mass index (BMI) of 40.0 or higher Morbid obesity with body mass index (BMI) of 40.0 or higher Disease Active -21 00:00: 00 [facility] Below-knee amputation of right lower extremity Below-knee amputation of right lower extremity Disease Active 9-15 00:00: 00 [facility] Hypotensio n, unspecifie d hypotensio n type Hypotensio n, unspecifie d hypotensio n type Disease Active 8-18 00:00: 00 [facility] Restless leg Restless leg Disease Active 8-14 00:00: 00 [facility] Suspected COVID-19 virus infection Suspected COVID-19 virus infection Disease Active 11-02 00:00: 00 [facility] S/P BKA (below knee amputation ), right S/P BKA (below knee amputation ), right Disease Active 406 00:00: 00 [facility] Migraine without status migrainosu s, not intractabl e, unspecifie d migraine type Migraine without status migrainosu s, not intractabl e, unspecifie d migraine type Disease Active 08-25 00:00: 00 [facility] 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 Disease Active 08-25 00:00: 00 [facility] Hx of bipolar disorder Hx of bipolar disorder Disease Active 08-25 00:00: 00 [facility] Lumbar herniated disc Lumbar herniated disc Disease Active 08-25 00:00: 00 [facility] Type 2 diabetes mellitus with hyperglyce thanh, with long-term current use of insulin Type 2 diabetes mellitus with hyperglyce thanh, with long-term current use of insulin Disease Active 08-25 00:00: 00 [facility] Type 2 diabetes mellitus with hyperglyce thanh, with long-term current use of insulin Type 2 diabetes mellitus with hyperglyce thanh, with long-term current use of insulin Disease Active 08-25 00:00: 00 [facility] Type 2 diabetes mellitus with hyperglyce thanh, with long-term current use of insulin Type 2 diabetes mellitus with hyperglyce thanh, with long-term current use of insulin Disease Active 08-25 00:00: 00 [facility] Left flank pain Left flank pain Disease Active 07-14 00:00: 00 Overview: Formattin g of this note might be different from the original. ICD10 Diagnosis Term [employer] Utility [facility] Sore throat Sore throat Disease Resolve d 11-02 00:00: 00 2020-02-24 00:00:00 2020-02-24 15:45:16 [facility] Nasal congestion Nasal congestion Disease Resolve d 11-02 00:00: 00 2020-02-24 00:00:00 2020-02-24 15:45:20 [facility] Diarrhea, unspecifie d type Diarrhea, unspecifie d type Disease Resolve d 11-02 00:00: 00 2020-02-24 00:00:00 2020-02-24 15:45:25 [facility] Allergies, Adverse Reactions, Alerts Allergy Name Allergy Type Status Severity Reaction(s) Onset Date Inactive Date Treating Clinician Comments Source BISMUTH TRIBROM- PETROLAT UM,WH DRUG Active Other-Cmnt 03-25 00:00: 00 [facility] Bismuth Tribrom- Petrolat um,Wh Propensi ty to adverse reaction s Active Other - See comments 03-25 00:00: 00 Redness. [facility] AMOXICIL NITESH DRUG INGREDI Active Unknown-Cmnt 12-19 00:00: 00 [facility] Amoxicil nitesh Drug Allergy Active Unknown - See comments 12-19 00:00: 00 [facility] DIPHENHY DRAMINE HCL DRUG INGREDI Active Hives 01-25 00:00: 00 [facility] Diphenhy dramine Hcl Propensi ty to adverse reaction s Active Hives 01-25 00:00: 00 [facility] MUSHROOM DRUG INGREDI Active Low Other-Cmnt 2018-07 00:00: 00 [facility] Mushroom Propensi ty to adverse reaction s Active Other - See comments 2018-07 00:00: 00 "pass out" [facility] TRAMADOL DRUG INGREDI Active N/V 03-08 00:00: 00 [facility] Tramadol Propensi ty to adverse reaction s Active Nausea and/or Vomiting 03-08 00:00: 00 drowsines s [facility] CIPROFLO XACIN DRUG INGREDI Active Hives 04-11 00:00: 00 [facility] PENICILL IN DRUG INGREDI Active Anaphylaxis 04-11 00:00: 00 [facility] Ciproflo xacin Propensi ty to adverse reaction s Active Hives 04-11 00:00: 00 [facility] Penicill in Propensi ty to adverse reaction s Active Anaphylaxis 04-11 00:00: 00 Pt states, "I'll flatline" ; tolerated cefazolin and ceftriaxo ne 03/2023 admission [facility] Iodine And Iodide Containi ng Products Propensi ty to adverse reaction s Active Anaphylaxis 07-14 00:00: 00 [facility] ASPIRIN DRUG INGREDI Active Hives 07-14 00:00: 00 [facility] IODINE AND IODIDE CONTAINI NG PRODUCTS Drug Class Active Anaphylaxis 07-14 00:00: 00 [facility] Aspirin Propensi ty to adverse reaction s Active Hives 07-14 00:00: 00 [facility] Social History Social Habit Start Date Stop Date Quantity Comments Source History of tobacco use Cigarette Smoker [facility] History SDOH Social Connections Get Together [facility] History SDOH Social Connections Religion [facility] History SDOH Social Connections Membership [facility] History SDOH Social Connections Meetings [facility] History SDOH Housing Places Lived [facility] Gender identity [facility] Alcohol intake 2023-10-23 00:00:00 2023-10-23 00:00:00 Ex-drinker (finding) [facility] Alcoholic beverage intake 2023-10-23 00:00:00 2023-10-23 00:00:00 Ex-drinker (finding) [facility] History SDOH Alcohol Frequency 2022-12-24 00:00:00 2022-12-24 00:00:00 1 [facility] History SDOH Alcohol Std Drinks 2022-12-24 00:00:00 2022-12-24 00:00:00 0 [facility] History SDOH Alcohol Binge 2022-12-24 00:00:00 2022-12-24 00:00:00 1 [facility] History SDOH Social Connections Phone 2022-12-24 00:00:00 2022-12-24 00:00:00 5 [facility] History SDOH Social Connections Living 2022-12-24 00:00:00 2022-12-24 00:00:00 3 [facility] History SDOH Physical Activity DPW 2022-12-24 00:00:00 2022-12-24 00:00:00 0 [facility] History SDOH Physical Activity MPS 2022-12-24 00:00:00 2022-12-24 00:00:00 0 [facility] History SDOH Financial 2022-12-24 00:00:00 2022-12-24 00:00:00 5 [facility] History SDOH Food Worry 2022-12-24 00:00:00 2022-12-24 00:00:00 1 [facility] History SDOH Food Scarcity 2022-12-24 00:00:00 2022-12-24 00:00:00 1 [facility] History SDOH Transport Med 2022-12-24 00:00:00 2022-12-24 00:00:00 2 [facility] History SDOH Transport Non-Med 2022-12-24 00:00:00 2022-12-24 00:00:00 2 [facility] History SDOH Housing Unable to Pay 2022-12-24 00:00:00 2022-12-24 00:00:00 2 [facility] History SDOH Housing Homeless Last Year 2022-12-24 00:00:00 2022-12-24 00:00:00 2 [facility] Exposure to SARS-CoV-2 (event) 2022-11-30 00:00:00 2022-12-10 14:23:00 Not sure [facility] Cigarettes smoked current (pack per day) - Reported 2022-09-18 00:00:00 2022-09-18 00:00:00 [facility] Cigarette pack-years 2022-09-18 00:00:2022-09-18 00:00:00 [facility] Tobacco use and exposure 2022-09-18 00:00:00 2022-09-18 00:00:00 Smokeless tobacco non-user [facility] History of Social function 2022-09-18 00:00:00 2022-09-18 00:00:00 [facility] Sex assigned at 1975 00:00:00 1975 00:00:00 [facility] Smoking Status Start Date Stop Date Source Smokes tobacco daily 2022-09-18 00:00:00 [facility] Medications Ordered Medication Name Filled Medication Name Start Date Stop Date Current Medication? Ordering Clinician Indication Dosage Frequency Signature (SIG) Comments Components Source SERTraline 50 mg tablet 2023-07 00:00: 00 Yes [id number] 50mg TAKE 1 TABLET BY MOUTH EVERY DAY IN THE MORNING [facility] omeprazole 40 mg capsule 03-18 00:00: 00 Yes [id number] 40mg TAKE 1 CAPSULE BY MOUTH IN THE MORNING [facility] SERTRALINE 50 mg tablet 01-28 00:00: 00 05-24 00:00 :00 No [id number] 50mg TAKE 1 TABLET BY MOUTH EVERY DAY IN THE MORNING [facility] blood sugar diagnostic (ONETOUCH ULTRA TEST) strip 01-07 00:00: 00 Yes [id number] USE TO TEST BLOOD GLUCOSE ONCE A DAY [facility] BD GLADIS 2ND GEN PEN NEEDLE 32 gauge x 5/32" Ndle 12-23 00:00: 00 Yes USE DIRECTED TWO TIMES DAILY WITH MEALS. [facility] Insulin Asp Prt-Insulin Aspart 100 unit/mL (70-30) injection 12-22 00:00: 00 Yes [id number] 20U inject 20 Units under the skin in the morning and 20 Units in the evening. inject with meals. [facility] atorvastati n 80 mg tablet 10-22 00:00: 00 Yes [id number] 80mg Take 1 tablet by mouth at bedtime. [facility] amitriptyli ne 100 mg tablet 10-22 00:00: 00 Yes [id number] 100mg Take 1 tablet by mouth at bedtime. [facility] butalbital- acetaminoph en-caff 50-325-40 mg tablet 10-22 00:00: 00 Yes [id number] TAKE 1 CAPSULE BY MOUTH EVERY 8 HOURS NEEDED FOR MIGRAINE [facility] metFORMIN 1,000 mg tablet 10-22 00:00: 00 Yes [id number] TAKE 1 TABLET BY MOUTH IN THE MORNING AND 1 TABLET IN THE EVENING. TAKE WITH MEALS. [facility] SITagliptin phosphate (JANUVIA) 100 mg tablet 10-22 00:00: 00 Yes [id number] 100mg Take 1 tablet by mouth in the morning. [facility] LISINOPRIL 10 mg tablet 10-22 00:00: 00 Yes [id number] TAKE 1 AND 1/2 TABLET BY MOUTH IN THE MORNING. HOLD IF BP < 110/60 [facility] SERTraline (ZOLOFT) 50 mg tablet 10-22 00:00: 00 01-28 00:00 :00 No [id number] 50mg Take 1 tablet by mouth in the morning. [facility] omeprazole 40 mg capsule - 00:00: 00 Yes [id number] 40mg TAKE 1 CAPSULE BY MOUTH IN THE MORNING. [facility] metFORMIN 1,000 mg tablet - 00:00: 00 10-22 00:00 :00 No [id number] TAKE 1 TABLET BY MOUTH IN THE MORNING AND 1 TABLET IN THE EVENING. TAKE WITH MEALS. [facility] Leg Brace Misc 2-06 00:00: 00 Yes [id number] 9101 Use as directed [facility] lisinopriL 10 mg tablet 1-05 00:00: 00 10-22 00:00 :00 No [id number] 15mg Take 1.5 tablets by mouth in the morning. Hold if BP < 110/60 [facility] Insulin [place], Disposable, (BD GLADIS 2ND GEN PEN NEEDLE) 32 gauge x 5/32" Ndle 2022-07 2-05 00:00: 00 12-23 00:00 :00 No Use as directed two times daily with meals. [facility] atorvastati n 80 mg tablet 2022-07 1-08 00:00: 00 10-22 00:00 :00 No [id number] 80mg TAKE 1 TABLET BY MOUTH AT BEDTIME [facility] BUPROPION SR 150 mg SR tablet 2022-07 00:00: 00 10-22 00:00 :00 No [id number] 150mg TAKE 1 TABLET BY MOUTH IN THE MORNING AND 1 TABLET IN THE EVENING [facility] insulin glargine (LANTUS U-100) injection 30 Units 03-27 02:00: 00 Yes 30U 30 Units, Subcutaneo us, QHS, First dose on Brynn 03/26/23 at 2100, Until Discontinu ed, Routine [facility] buPROPion SR 150 mg SR tablet 03-27 00:00: 00 04-22 00:00 :00 No [id number] 150mg Take 1 tablet by mouth in the morning and 1 tablet in the evening. [facility] predniSONE (DELTASONE) tablet 10 mg 03-26 17:15: 00 03-26 17:06 :00 No 10mg 10 mg, Oral, ONCE, 1 dose, On Brynn 03/26/23 at 1215, Routine [facility] amLODIPine (NORVASC) tablet 5 mg 03-26 14:30: 00 03-26 15:12 :00 No 5mg 5 mg, Oral, ONCE, 1 dose, On Brynn 03/26/23 at 0930, Routine [facility] lisinopriL (PRINIVIL,Z ESTRIL) tablet 40 mg 03-26 14:00: 00 Yes 40mg 40 mg, Oral, DAILY, First dose (after last modificati on) on Brynn 03/26/23 at 0900, Until Discontinu ed, Routine [facility] insulin NPH and regular human 70-30 (70-30 U-100 INSULIN) 100 unit/mL (70-30) injection 30 Units 03-26 13:45: 00 03-26 13:08 :00 No 30U 30 Units, Subcutaneo us, ONCE, 1 dose, On Brynn 03/26/23 at 0845, Routine [facility] famotidine (PEPCID AC) tablet 20 mg 03-26 01:00: 00 Yes 20mg 20 mg, Oral, BID, First dose on Thu03/25/23 at 2000, Until Discontinu ed, Routine [facility] Insulin Asp Prt-Insulin Aspart 100 unit/mL (70-30) injection 03-26 00:00: 00 12-20 00:00 :00 No [id number] 20U inject 20 Units under the skin in the morning and 20 Units in the evening. inject with meals. [facility] metFORMIN 1,000 mg tablet 03-26 00:00: 00 08-21 00:00 :00 No [id number] 500mg Take 0.5 tablets by mouth in the morning and 0.5 tablets in the evening. Take with meals. [facility] cephALEXin (KEFLEX) 500 mg capsule 03-26 00:00: 00 04-01 04:59 :00 No [id number] 500mg Take 1 capsule by mouth 4 (four) times daily for 5 days. [facility] HYDROcodone -acetaminop hen 10-325 mg tablet 03-26 00:00: 00 03-30 04:59 :00 No [id number] 1{tbl} Take 1 tablet by mouth every 6 (six) hours as needed for Pain (scale 7-10) for up to 3 days. Indication s: acute pain [facility] insulin glargine 100 unit/mL injection 03-26 00:00: 00 03-26 00:00 :00 No [id number] 20U inject 20 Units under the skin at bedtime. [facility] methylPREDN ISolone sod succ (SOLU-MEDRO L (PF)) injection 40 mg 03-25 20:30: 00 03-25 20:21 :00 No 40mg 40 mg, Intravenou s, ONCE, 1 dose, On Thu03/25/23 at 1530, Routine [facility] simethicone (GAS RELIEF (SIMETHICON E)) chewable tablet 80 mg 03-25 02:00: 00 Yes 80mg 80 mg, Oral, PC+HS, First dose on Thu03/24/23 at 2100, Until Discontinu ed, Routine [facility] glycerin/mi neral oil (AGLO ENEMA) (COMPOUNDED ) Enem 225 mL 03-24 23:45: 00 03-25 01:14 :00 No 225mL 225 mL, Rectal, ONCE, 1 dose, On Thu03/24/23 at 1845, TRISTAN [facility] ceFAZolin (ANCEF) 1,000 mg in NaCl 0.9% [...] Soft Tissue
Duration of Therapy: 10 days [facility] lisinopriL (PRINIVIL,Z ESTRIL) tablet 20 mg 03-24 14:00: 00 03-25 19:34 :10 No 20mg 20 mg, Oral, DAILY, First dose (after last modificati on) on Thu03/24/23 at 0900, Until Discontinu ed, Routine [facility] lisinopriL (PRINIVIL,Z ESTRIL) tablet 10 mg 03-23 19:15: 00 03-23 19:22 :00 No 10mg 10 mg, Oral, ONCE, 1 dose, On Thu03/23/23 at 1415, Routine [facility] lactulose (CEPHULAC) solution 30 mL 03-23 00:15: 00 Yes 30mL 30 mL, Oral, DAILY, First dose on Thu03/22/23 at 1915, Until Discontinu ed, Routine [facility] lisinopriL (PRINIVIL,Z ESTRIL) tablet 10 mg 03-22 14:00: 00 Yes 10mg 10 mg, Oral, DAILY, First dose on Thu03/22/23 at 0900, Until Discontinu ed, Routine [facility] ondansetron (ZOFRAN-ODT ) disintegrat ing tablet 4 mg 03-22 02:05: 09 Yes 4mg 4 mg, Oral, Q8HPRN, Starting on 03/21/23 at 2105, Until Discontinu ed, Routine, Nausea and Vomiting (N/V), N/V alternatin g with Promethazi ne [facility] proMETHazin e (PHENERGAN) injection 25 mg 03-22 02:04: 56 Yes 25mg 25 mg, Intramuscu lar, Q4HPRN, Starting on Thu03/21/23 at 2104, Until Discontinu ed, Routine, Nausea and Vomiting (N/V), 2nd line [facility] sennosides- docusate sodium (SENOKOT-S) 8.6-50 mg per tablet 1 tablet 03-21 21:00: 00 Yes 1{tbl} 1 tablet, Oral, DAILY, First dose on Thu03/21/23 at 1600, Until Discontinu ed, Routine [facility] morpHINE (4 mg/mL) injection 4 mg 03-21 04:04: 33 Yes 4mg 4 mg, Slow IV Push, Q4HPRN, Starting on Thu03/20/23 at 2304, Until Discontinu ed, Routine, Pain (scale 7-10) [facility] cefTRIAXone (ROCEPHIN) 2,000 mg in NaCl 0.9% [...] Soft tissue
Duration of therapy: 5 days [facility] hydralAZINE (APRESOLINE ) injection 10 mg 03-20 19:28: 12 Yes 10mg 10 mg, Slow IV Push, Q6HPRN, Starting on Thu03/20/23 at 1428, Until Discontinu ed, Routine, DBP=>100; SBP=>180 [facility] lactated ringers IV infusion 1,000 mL 03-20 17:45: 00 Yes 1000mL at 100 mL/hr, 1,000 mL, IV Infusion, CONTINUOUS , Starting on Thu03/20/23 at 1245, Until Discontinu ed, Routine, PACU [facility] lidocaine 1% (PF) (XYLOCAINE) injection 03-20 17:17: 00 03-20 17:42 :18 No PRN, Starting on Thu03/20/23 at 1217, Until Thu03/20/23 at 1242, Routine, Intra-op [facility] bupivacaine (preserv free) 0.5% (SENSORCAIN E MPF) injection 03-20 17:00: 00 03-20 17:42 :18 No PRN, Starting on Thu03/20/23 at 1200, Until Thu03/20/23 at 1242, Routine, Intra-op [facility] sodium chloride 0.9 % irrigation solution 03-20 16:30: 00 03-20 17:42 :18 No PRN, Starting on Thu03/20/23 at 1130, Until Thu03/20/23 at 1242, Intra-op [facility] atorvastati n (LIPITOR) tablet 80 mg 03-20 02:00: 00 Yes 80mg 80 mg, Oral, QHS, First dose on Brynn03/19/23 at 2100, Until Discontinu ed, Routine [facility] amitriptyli ne (ELAVIL) tablet 100 mg 03-20 02:00: 00 Yes 100mg 100 mg, Oral, QHS, First dose on Thu03/19/23 at 2100, Until Discontinu ed, Routine [facility] vancomycin 1,250 mg in NaCl 0.9% [...] Soft tissue
Duration of therapy: 5 days [facility] omeprazole (PRILOSEC) capsule 40 mg 03-19 14:00: 00 Yes 40mg 40 mg, Oral, DAILY, First dose on Thu03/19/23 at 0900, Until Discontinu ed [facility]ox[facility] (LOVENOX) [facility] 40 mg 03-19 14:00: 00 Yes 40mg 40 mg, Subcutaneo us, DAILY, First dose on Thu03/19/23 at 0900, Until Discontinu ed, [facility] NaCl 0.9% (NS) IV infusion 1,000 mL 03-19 13:45: 00 03-19 15:18 :52 No 1000mL at 75 mL/hr, IV Infusion, ONCE, 1 dose, On Thu03/19/23 at 0845, Routine [facility] butalbital- acetaminoph en-caff (ESGIC) 50-325-40 mg tablet 1 tablet 03-19 12:29: 37 Yes 1{tbl} 1 tablet, Oral, Q4HPRN, Starting on Thu03/19/23 at 0729, Until Discontinu ed, Routine, Headache [facility] ipratropium -albuteroL (DUONEB) 0.5 mg-3 mg(2.5 mg base)/3 mL nebulizer solution 3 mL 03-19 12:28: 33 Yes 3mL 3 mL, Inhalation , QIDPRN, Starting on Thu03/19/23 at 0728, Until Discontinu ed, Routine, Wheezing, Shortness of Breath, Chest tightness, Bronchospa sm [facility] Sliding Scale Insulin - Lispro (HumaLOG) 03-19 02:00: 00 Yes Subcutaneo us, TID MEALS+HS, First dose on Thu03/18/23 at 2100, Until Discontinu ed, Routine [facility] ondansetron (ZOFRAN-ODT ) disintegrat ing tablet 4 mg 03-19 01:15: 00 03-19 00:18 :00 No 4mg 4 mg, Oral, ONCE, 1 dose, On Thu03/18/23 at 2014, Routine [facility] HYDROcodone -acetaminop hen (NORCO) 10-325 mg tablet 1 tablet 03-19 01:15: 00 03-19 00:19 :00 No 1{tbl} 1 tablet, Oral, ONCE, 1 dose, On Thu03/18/23 at 2014, Routine [facility] HYDROcodone -acetaminop hen (NORCO) 10-325 mg tablet 1 tablet 03-19 00:39: 34 03-21 04:05 :44 No 1{tbl} 1 tablet, Oral, Q6HPRN, Starting on Thu03/18/23 at 1939, Until Thu03/20/23 at 2305, Routine, Pain (scale 7-10) [facility] ondansetron (ZOFRAN (PF)) injection 4 mg 03-19 00:38: 48 Yes 4mg 4 mg, Slow IV Push, Q6HPRN, Starting on Thu03/18/23 at 1938, Until Discontinu ed, Routine, Nausea and Vomiting (N/V) [facility] glucagon (GLUCAGEN DIAGNOSTIC KIT) injection 1 mg 03-19 00:38: 42 Yes 1mg 1 mg, Intramuscu lar, PRN, Starting on Thu03/18/23 at 1938, Until Discontinu ed, TRISTAN, Blood Glucose < or = 70 mg/dL and patient is NPO, unable to swallow or has mental changes. [facility] dextrose 50 % in water (D50W) injection 25 mL 03-19 00:38: 42 Yes 25mL 25 mL, Slow IV Push, PRN, Starting on Thu03/18/23 at 193, Until Discontinu ed, TRISTAN, Blood Glucose < or = 70 mg/dL and patient is NPO, unable to swallow or has mental status changes. [facility] acetaminoph en (TYLENOL) tablet 650 mg 03-19 00:38: 14 Yes 650mg 650 mg, Oral, Q6HPRN, Starting on Thu03/18/23 at 193, Until Discontinu ed, Routine, Pain (scale 1-3) [facility] acetaminoph en (TYLENOL) tablet 500 mg 03-19 00:15: 00 03-19 00:19 :00 No 500mg 500 mg, Oral, ONCE, 1 dose, On Thu03/18/23 at 1915, TRISTAN [facility] NaCl 0.9% (NS) bolus infusion 1,000 mL 03-18 23:45: 00 03-19 01:00 :00 No 1000mL at 999 mL/hr, 1,000 mL, IV Infusion, ONCE, 1 dose, On Thu03/18/23 at 1845, STAT [facility] vancomycin 1,250 mg in NaCl 0.9% (NS) [...] Tissue
Duration of Therapy: Other (see Comments) [facility] INSULIN ASP PRT-INSULIN ASPART 100 unit/mL (70-30) injection 8-11 00:00: 00 03-26 00:00 :00 No [id number] INJECT 30 UNITS SUBCUTANEO USLY TWICE DAILY WITH MEALS [facility] insulin glargine (LANTUS U-100) injection 15 Units 12-25 14:00: 00 Yes 15U 15 Units, Subcutaneo us, DAILY, First dose on Thu12/25/22 at 0900, Until Discontinu ed, Routine [facility] insulin glargine 100 unit/mL injection 12-25 00:00: 00 03-26 00:00 :00 No [id number] 30U inject 30 Units under the skin at bedtime. [facility] insulin lispro, human, 100 unit/mL injection 12-25 00:00: 00 01-25 04:59 :00 No [id number] 5U inject 5 Units under the skin in the morning and 5 Units at noon and 5 Units in the evening. inject with meals. Do all this for 30 days. [facility] clopidogreL 75 mg tablet 12-25 00:00: 00 01-25 04:59 :00 No [id number] 75mg Take 1 tablet by mouth in the morning for 30 days. [facility] insulin lispro (human) (HumaLOG U-100) injection 10 Units 12-24 17:00: 00 12-24 22:24 :18 No 10U 10 Units, Subcutaneo us, TID MEALS, First dose on Thu12/24/22 at 1200, Until Discontinu ed, Routine [facility] sulfur hexafluorid e microsphr (LUMASON) injection 5 mL 12-24 15:45: 00 12-24 13:55 :00 No [id number] 5mL 5 mL, Intravenou s, ONCE, 1 dose, On Thu12/24/22 at 1045, Routine
accounting recruiter approving Restricted medication : GERI DARDEN [facility] Saline Bubble Study 12-24 15:32: 41 Yes [id number] 6mL 6 mL, Injection, SEE-INSTRU CTIONS, Starting on Thu12/24/22 at 1032, Until Discontinu ed, Routine [facility] Saline Bubble Study 12-24 15:32: 39 Yes [id number] 6mL 6 mL, Injection, SEE-INSTRU CTIONS, Starting on Thu12/24/22 at 1032, Until Discontinu ed, Routine [facility] omeprazole (PRILOSEC) capsule 40 mg 12-24 14:00: 00 Yes 40mg 40 mg, Oral, DAILY, First dose on Thu12/24/22 at 0900, Until Discontinu ed [facility] heparin (porcine) injection 5,000 Units 12-24 13:00: 00 Yes 5000U 5,000 Units, Subcutaneo us, Q12H, First dose on Thu12/24/22 at 0800, Until Discontinu ed, Routine [facility] Nitrofurant oin&Nit. Macrocryst (MACROBID) 100 mg capsule 100 mg 12-24 13:00: 00 12-31 12:59 :00 No 100mg 100 mg, Oral, BID, 14 doses, First dose on Thu12/24/22 at 0800, Last dose on Thu12/30/22 at 2000, Routine
Reason for Anti-Infec tive: Documented Infection< br>Documen perla Infection Site: Urine
D uration of Therapy: 7 days [facility] insulin NPH and regular human 70-30 (70-30 U-100 INSULIN) 100 unit/mL (70-30) injection 30 Units 12-24 12:30: 00 12-24 15:54 :43 No 30U 30 Units, Subcutaneo us, BIDAC, First dose (after last modificati on) on Thu12/24/22 at 0730, Until Discontinu ed, Routine [facility] amitriptyli ne (ELAVIL) tablet 100 mg 12-24 04:15: 00 Yes 100mg 100 mg, Oral, QHS, First dose on Thu12/23/22 at 2315, Until Discontinu ed, Routine [facility] HYDROcodone -acetaminop hen (NORCO) 10-325 mg tablet 1 tablet 12-24 04:02: 52 Yes 1{tbl} 1 tablet, Oral, Q6HPRN, Starting on Thu12/23/22 at 2302, Until Discontinu ed, Routine, Pain (scale 4-6) [facility] atorvastati n (LIPITOR) tablet 80 mg 12-24 02:00: 00 Yes 80mg 80 mg, Oral, QHS, First dose on Thu12/23/22 at 2100, Until Discontinu ed, Routine [facility] clopidogreL (PLAVIX) 75 mg tablet 75 mg 12-24 02:00: 00 Yes 75mg 75 mg, Oral, DAILY, First dose on Thu12/23/22 at 2100, Until Discontinu ed, Routine
accounting recruiter approving Restricted medication : ADOLFO CEDEÑO [facility] Sliding Scale Insulin - Lispro (HumaLOG) 12-24 02:00: 00 12-25 12:56 :41 No Subcutaneo us, TID MEALS+HS, First dose on Thu12/23/22 at 2100, Until Discontinu ed, Routine [facility] glucagon (GLUCAGEN DIAGNOSTIC KIT) injection 1 mg 12-24 01:52: 50 Yes 1mg 1 mg, Intramuscu lar, PRN, Starting on Thu12/23/22 at 205, Until Discontinu ed, TRISTAN, Blood Glucose < or = 70 mg/dL and patient is NPO, unable to swallow or has mental changes. [facility] dextrose 50 % in water (D50W) injection 25 mL 12-24 01:52: 50 Yes 25mL 25 mL, Slow IV Push, PRN, Starting on Thu12/23/22 at 2051, Until Discontinu ed, TRISTAN, Blood Glucose < or = 70 mg/dL and patient is NPO, unable to swallow or has mental status changes. [facility] acetaminoph en (TYLENOL) tablet 650 mg 12-24 01:51: 40 Yes 650mg 650 mg, Oral, Q6HPRN, Starting on Thu12/23/22 at 2050, Until Discontinu ed, Routine, Pain (scale 1-3), Temp > 37.5 C [facility] labetaloL (NORMODYNE) injection 10 mg 12-24 01:49: 29 Yes 10mg 10 mg, Slow IV Push, [id number], 5 doses, Starting on Thu12/23/22 at 2048, Until Discontinu ed, Routine, Hypertensi on SBP> 220 [facility] Nitrofurant oin&Nit. Macrocryst (MACROBID) 100 mg capsule 100 mg 12-24 00:30: 00 12-24 00:37 :00 No 100mg 100 mg, Oral, ONCE, 1 dose, On Thu12/23/22 at 1930, TRISTAN
Re ason for Anti-Infec tive: Documented Infection< br>Documen perla Infection Site: Urine
D uration of Therapy: Other (see Comments) [facility] insulin regular human (HUMULIN R) injection 8 Units 12-24 00:15: 00 12-23 23:37 :00 No 8U 8 Units, Slow IV Push, ONCE, 1 dose, On Thu12/23/22 at 191, STAT
In dication for insulin: Hyperglyce thanh [facility] NaCl 0.9% (NS) bolus infusion 1,000 mL 12-24 00:15: 00 12-23 23:37 :00 No 1000mL at 999 mL/hr, 1,000 mL, IV Infusion, ONCE, 1 dose, On Thu12/23/22 at 1915, STAT [facility] Insulin Syringe-Nee dle U-100 0.3 mL 31 x 3/8" Syrg 12-24 00:00: 00 Yes [id number] Use as directed to inject insulin (lantus once per day, humalog three times per day) [facility] Blood-Gluco se Meter (ACCU-CHEK GUIDE GLUCOSE METER) [facility] 12-24 00:00: 00 Yes [id number] Use as directed [facility] Insulin Syringe-Nee dle U-100 0.3 mL 31 x 3/8" Syrg 12-24 00:00: 00 Yes [id number] Use as directed to inject insulin (lantus once per day, humalog three times per day) [facility] Blood-Gluco se Meter (ACCU-CHEK GUIDE GLUCOSE METER) [facility] 12-24 00:00: 00 Yes [id number] Use as directed [facility] lancets 33 gauge [facility] 12-24 00:00: 00 Yes [id number] Use as directed to test blood sugars four times per day [facility] blood sugar diagnostic (ACCU-CHEK GUIDE TEST STRIPS) strip 12-24 00:00: 00 01-07 00:00 :00 No [id number] Use as directed to test blood sugars four times per day [facility] insulin glargine 100 unit/mL injection 12-24 00:00: 00 01-24 04:59 :00 No [id number] 32U inject 32 Units under the skin at bedtime for 30 days. [facility] insulin lispro, human, 100 unit/mL injection 12-24 00:00: 00 01-24 04:59 :00 No [id number] 10U inject 10 Units under the skin in the morning and 10 Units at noon and 10 Units in the evening. inject with meals. Do all this for 30 days. [facility] Nitrofurant oin&Nit. Macrocryst 100 mg capsule 12-24 00:00: 00 12-30 04:59 :00 No [id number] 100mg Take 1 capsule by mouth in the morning and 1 capsule in the evening. Do all this for 5 days. [facility] SITagliptin phosphate (JANUVIA) 100 mg tablet 12-19 00:00: 00 10-22 00:00 :00 No [id number] 100mg Take 1 tablet by mouth in the morning. [facility] amitriptyli ne 100 mg tablet 12-19 00:00: 00 10-22 00:00 :00 No [id number] 100mg Take 1 tablet by mouth at bedtime. [facility] lisinopriL 10 mg tablet 12-19 00:00: 00 07-17 00:00 :00 No [id number] 15mg Take 1.5 tablets by mouth in the morning. Hold if BP < 110/60 [facility] atorvastati n 80 mg tablet 12-19 00:00: 00 05-20 00:00 :00 No [id number] 80mg Take 1 tablet by mouth at bedtime. [facility] metFORMIN 1,000 mg tablet 12-19 00:00: 00 03-26 00:00 :00 No [id number] 1000mg Take 1 tablet by mouth in the morning and 1 tablet in the evening. Take with meals. [facility] nicotine 14 mg/24 hr patch 12-19 00:00: 00 03-18 00:00 :00 No [id number] 1{patch } Apply 1 Patch to area(s) every 24 (twenty-fo ur) hours. Apply 21mg patch daily x 6 weeks; then apply 14mf patch daily x 2 weeks; then apply 7mg patch daily x 2 weeks. Stop smoking on initiation of therapy [facility] nicotine 7 mg/24 hr patch 12-19 00:00: 00 03-18 00:00 :00 No [id number] 1{patch } Apply 1 Patch to area(s) every 24 (twenty-fo ur) hours. Apply 21mg patch daily x 6 weeks; then apply 14mf patch daily x 2 weeks; then apply 7mg patch daily x 2 weeks. Stop smoking on initiation of therapy [facility] nicotine 21 mg/24 hr patch 12-19 00:00: 00 03-18 00:00 :00 No [id number] 1{patch } Apply 1 Patch to area(s) in the morning. Apply 21mg patch daily x 6 weeks; then apply 14mf patch daily x 2 weeks; then apply 7mg patch daily x 2 weeks. Stop smoking on initiation of therapy [facility] Insulin Asp Prt-Insulin Aspart (NOVOLOG MIX 70-30) 100 unit/mL (70-30) injection 12-19 00:00: 00 12-24 00:00 :00 No [id number] INJECT 30 UNITS UNDER THE SKIN 2 (TWO) TIMES DAILY WITH MEALS. E11.65 [facility] insulin regular human (HUMULIN R) injection 6 Units 12-10 23:00: 00 12-10 22:29 :00 No 6U 6 Units, Slow IV Push, ONCE, 1 dose, On Thu12/10/22 at 1800, STAT
In dication for insulin: Hyperglyce thanh [facility] Nitrofurant oin&Nit. Macrocryst (MACROBID) 100 mg capsule 100 mg 12-10 21:30: 00 12-10 21:24 :00 No 100mg 100 mg, Oral, ONCE NOW, 1 dose, On Thu12/10/22 at 1630, TRISTAN
Re ason for Anti-Infec tive: Documented Infection< br>Documen perla Infection Site: Urine
D uration of Therapy: 7 days [facility] NaCl 0.9% (NS) bolus infusion 1,000 mL 12-10 21:30: 00 12-10 22:51 :00 No 1000mL at 999 mL/hr, 1,000 mL, IV Piggyback, ONCE, 1 dose, On Thu12/10/22 at 1630, STAT [facility] insulin regular human (HUMULIN R) injection 8 Units 12-10 21:30: 00 12-10 20:55 :00 No 8U 8 Units, Slow IV Push, ONCE, 1 dose, On Thu12/10/22 at 1630, STAT
In dication for insulin: Hyperglyce thanh [facility] Nitrofurant oin&Nit. Macrocryst 100 mg capsule 12-10 00:00: 00 12-18 04:59 :00 No [id number] 100mg Take 1 capsule by mouth in the morning and 1 capsule in the evening. Do all this for 7 days. [facility] fluconazole 150 mg tablet 11-18 00:00: 00 11-19 04:59 :00 No [id number] 150mg Take 1 tablet by mouth once now for 1 dose. [facility] butalbital- acetaminoph en-caff 50-325-40 mg tablet 09-18 00:00: 00 10-22 00:00 :00 No [id number] TAKE 1 CAPSULE BY MOUTH EVERY 8 HOURS NEEDED FOR MIGRAINE [facility] omeprazole 40 mg capsule 09-18 00:00: 00 08-21 00:00 :00 No [id number] 40mg Take 1 capsule by mouth in the morning. [facility] lisinopriL 10 mg tablet 09-18 00:00: 00 12-19 00:00 :00 No [id number] 15mg Take 1.5 tablets by mouth in the morning. Hold if BP < 110/60 [facility] Insulin Asp Prt-Insulin Aspart (NOVOLOG MIX 70-30) 100 unit/mL (70-30) injection 09-18 00:00: 00 12-19 00:00 :00 No [id number] INJECT 30 UNITS UNDER THE SKIN 2 (TWO) TIMES DAILY WITH MEALS. E11.65 [facility] metFORMIN 1,000 mg tablet 09-18 00:00: 00 12-19 00:00 :00 No [id number] 1000mg Take 1 tablet by mouth in the morning and 1 tablet in the evening. Take with meals. [facility] SITagliptin phosphate (JANUVIA) 100 mg tablet 09-18 00:00: 00 12-19 00:00 :00 No [id number] 100mg Take 1 tablet by mouth in the morning. [facility] atorvastati n 40 mg tablet 09-18 00:00: 00 12-19 00:00 :00 No [id number] 40mg Take 1 tablet by mouth at bedtime. [facility] amitriptyli ne 100 mg tablet 09-18 00:00: 00 12-19 00:00 :00 No [id number] 100mg Take 1 tablet by mouth at bedtime. [facility] JANUVIA 100 mg tablet 08-14 00:00: 00 09-18 00:00 :00 No [id number] TAKE 1 TABLET BY MOUTH EVERY DAY [facility] butalbital- acetaminoph en-caff 50-325-40 mg tablet 07-24 00:00: 00 09-18 00:00 :00 No [id number] TAKE 1 CAPSULE BY MOUTH EVERY 8 HOURS NEEDED FOR MIGRAINE [facility] Methylpredn isolone 4 mg tablet 2021-07 00:00: 00 07-16 05:59 :00 No [id number] 4mg Take 1 tablet by mouth every 12 (twelve) hours for 5 days. [facility] METFORMIN 1,000 mg tablet 2021-07 00:00: 00 09-18 00:00 :00 No [id number] TAKE 1 TABLET BY MOUTH TWICE A DAY WITH MEALS [facility] NOVOLOG MIX 70-30 100 unit/mL (70-30) injection 2021-07 00:00: 00 09-18 00:00 :00 No [id number] INJECT 30 UNITS UNDER THE SKIN 2 (TWO) TIMES DAILY WITH MEALS. E11.65 [facility] OMEPRAZOLE 40 mg capsule 2021-07 00:00: 00 09-18 00:00 :00 No [id number] TAKE 1 CAPSULE BY MOUTH EVERY DAY [facility] AMITRIPTYLI NE 100 mg tablet 2021-07 1- 00:00: 09-18 00:00 :00 No [id number] 06 TAKE 1 TABLET BY MOUTH EVERY DAY AT BEDTIME [facility] cefTRIAXone (ROCEPHIN) injection 500 mg 2021-07 0-21 21:15: 00 05-02 20:58 :00 No [id number] 500mg [facility] amoxicillin -clavulanat e (AUGMENTIN) 875-125 mg per tablet 2021-07 0- 00:00: 00 09-18 00:00 :00 No [id number] 1{tbl} Take 1 tablet by mouth in the morning and 1 tablet in the evening. [facility] METFORMIN 1,000 mg tablet 2021-07 0-18 00:00: 00 06-19 00:00 :00 No [id number] TAKE ONE (1) TABLET BY MOUTH TWICE DAILY WITH MEALS [facility] lisinopriL 10 mg tablet 2021-07 0-11 00:00: 00 09-18 00:00 :00 No [id number] 15mg Take 1.5 tablets by mouth in the morning. Hold if BP < 110/60 [facility] OMEPRAZOLE 40 mg capsule 9-16 00:00: 00 06-19 00:00 :00 No [id number] TAKE 1 CAPSULE BY MOUTH EVERY DAY [facility] atorvastati n 40 mg tablet -09 00:00: 00 09-18 00:00 :00 No [id number] 40mg Take 1 tablet by mouth at bedtime. [facility] NOVOLOG MIX 70-30 100 unit/mL (70-30) injection 8-24 00:00: 00 06-19 00:00 :00 No [id number] INJECT 30 UNITS SUBCUTANEO USLY TWICE DAILY WITH MEALS [facility] benzonatate 200 mg capsule 7-13 00:00: 00 09-18 00:00 :00 No [id number] 200mg Take 1 capsule by mouth 3 (three) times daily as needed for Cough. [facility] BUTALBITAL- ACETAMINOPH EN-CAFF 50-325-40 mg tablet 6-23 00:00: 00 07-24 00:00 :00 No [id number] TAKE 1 CAPSULE BY MOUTH EVERY 8 HOURS NEEDED FOR MIGRAINE [facility] AMITRIPTYLI NE 100 mg tablet 11-19 00:00: 00 06-07 00:00 :00 No [id number] 06 TAKE 1 TABLET BY MOUTH EVERYDAY AT BEDTIME [facility] OMEPRAZOLE 40 mg capsule 11-19 00:00: 00 03-28 00:00 :00 No [id number] TAKE 1 CAPSULE BY MOUTH EVERY DAY [facility] SITagliptin (JANUVIA) 100 mg tablet 11-08 00:00: 00 08-14 00:00 :00 No [id number] 100mg Take 1 tablet by mouth daily. [facility] metFORMIN 1,000 mg tablet 11-08 00:00: 00 04-29 00:00 :00 No [id number] 1000mg Take 1 tablet by mouth 2 (two) times daily with meals. [facility] lisinopriL 10 mg tablet 11-08 00:00: 04-22 00:00 :00 No [id number] 15mg Take 1.5 tablets by mouth daily. Hold if BP < 110/60 [facility] Insulin Asp Prt-Insulin Aspart (NOVOLOG MIX 70-30) 100 unit/mL (70-30) injection 11-08 00:00: 00 03-05 00:00 :00 No [id number] 30U inject 30 Units under the skin 2 (two) times daily with meals. E11.65 [facility] pregabalin (LYRICA) 75 mg capsule 08-08 00:00: 00 09-18 00:00 :00 No [id number] 75mg Take 1 capsule by mouth 2 (two) times daily. [facility] Butalbital- Acetaminoph en-Caff (FIORICET) 50-300-40 mg per capsule - 00:00: 07-24 00:00 :00 No [id number] 1{capsu le} Take 1 capsule by mouth every 8 (eight) hours as needed (Migraine) . [facility] Nitrofurant oin&Nit. Macrocryst (MACROBID) 100 mg capsule 07-13 00:00: 00 09-18 00:00 :00 No [id number] 100mg Take 1 capsule by mouth 2 (two) times daily. [facility] AMITRIPTYLI NE 100 mg tablet 2020-07 00:00: 00 11-19 00:00 :00 No [id number] 06 TAKE 1 TABLET BY MOUTH EVERYDAY AT BEDTIME [facility] Insulin Asp Prt-Insulin Aspart (NOVOLOG MIX 70-30) 100 unit/mL (70-30) injection 2020-07 00:00: 00 11-08 00:00 :00 No [id number] 30U inject 30 Units under the skin 2 (two) times daily with meals. E11.65 [facility] metFORMIN 1,000 mg tablet 2020-07 00:00: 00 11-08 00:00 :00 No [id number] 1000mg Take 1 tablet by mouth 2 (two) times daily with meals. [facility] SITagliptin (JANUVIA) 100 mg tablet 2020-07 00:00: 00 11-08 00:00 :00 No [id number] 100mg Take 1 tablet by mouth daily. [facility] OMEPRAZOLE 40 mg capsule 2020-07 00:00: 00 11-19 00:00 :00 No [id number] TAKE 1 CAPSULE BY MOUTH EVERY DAY [facility] 2020-07 00:00: 00 Yes Standard rollatorR5 5/W19.XXXS /M79.604/R 06./I50. 32/I51.7/E 11.3511: Use daily for ambulation /fall precaution [facility] 2021-1 1-04 00:00: 00 Yes Standard rollatorR5 5/W19.XXXS /M79.604/R 06.02/I50. 32/I51.7/E 11.3511: Use daily for ambulation /fall precaution [facility] Walker (ULTRA-LIGH T ROLLATOR) [facility] [place]07 [place]:00: 00 Yes R55/W19.XX XS/M79.604 /R06.02/I5 0.32/I51.7 /E11.3511: Use daily for ambulation /fall precaution (brand pending insurance approval) [facility] Supply Kit 2020-07 00:00: 00 Yes [id number] I10 - Dispense blood pressure cuff (any brand), take BP at home BID [facility] Supply Kit 2020-07 00:00: 00 Yes [id number] I10 - Dispense blood pressure cuff (any brand), take BP at home BID [facility] mupirocin 2 % ointment 2020-07 00:00: 00 09-18 00:00 :00 No [id number] Apply to area(s) 3 (three) times daily. [facility] atorvastati n 40 mg tablet 2020-07 00:00: 00 03-21 00:00 :00 No [id number] 40mg Take 1 tablet by mouth at bedtime. [facility] lisinopriL 5 mg tablet 2020-07 00:00: 00 11-08 00:00 :00 No [id number] 2.5mg Take 0.5 tablets by mouth daily. Hold if BP < 110/60 [facility] ondansetron (ZOFRAN ODT) 4 mg disintegrat ing tablet 02-13 00:00: 00 12-24 00:00 :00 No [id number] 4mg Take 1 tablet by mouth every 8 (eight) hours as needed for Nausea and Vomiting (N/V). [facility] ALBUTEROL 90 mcg/actuati on inhaler 202 00:00: 00 Yes [id number] INHALE 2 PUFFS BY MOUTH EVERY 6 HOURS NEEDED FOR SHORTNESS OF BREATH [facility] HYDROcodone -acetaminop hen 7.5-325 mg per tablet 5-11 00:00: 00 03-26 00:00 :00 No 1{tbl} Take 1 tablet by mouth 2 (two) times daily. [facility] ondansetron 4 mg tablet 1-27 00:00: 00 12-24 00:00 :00 No TAKE 1 TABLET BY MOUTH EVERY 4 HOURS NEEDED FOR NAUSEA [facility] Immunizations Ordered Immunization Name Filled Immunization Name Date Status Comments Source Pneumococcal 20 Conjugate, PCV20 (Prevnar 20) 2022-12-19 00:00:00 Completed [facility] Pneumococcal 20 Conjugate, PCV20 (Prevnar 20) 2022-12-19 00:00:00 Completed [facility] Pneumococcal 20 Conjugate, PCV20 (Prevnar 20) 2022-12-19 00:00:00 Completed [facility] Pneumococcal 20 Conjugate, PCV20 (Prevnar 20) 2022-12-19 00:00:00 Completed [facility] Pneumococcal 20 Conjugate, PCV20 (Prevnar 20) 2022-12-19 00:00:00 Completed [facility] Pneumococcal 20 Conjugate, PCV20 (Prevnar 20) 2022-12-19 00:00:00 Completed [facility] Pneumococcal 20 Conjugate, PCV20 (Prevnar 20) 2022-12-19 00:00:00 Completed [facility] Pneumococcal 20 Conjugate, PCV20 (Prevnar 20) 2022-12-19 00:00:00 Completed [facility] Pneumococcal 20 Conjugate, PCV20 (Prevnar 20) 2022-12-19 00:00:00 Completed [facility] Pneumococcal 20 Conjugate, PCV20 (Prevnar 20) 2022-12-19 00:00:00 Completed [facility] Pneumococcal 20 Conjugate, PCV20 (Prevnar 20) 2022-12-19 00:00:00 Completed [facility] Pneumococcal 20 Conjugate, PCV20 (Prevnar 20) 2022-12-19 00:00:00 Completed [facility] Pneumococcal 20 Conjugate, PCV20 (Prevnar 20) 2022-12-19 00:00:00 Completed [facility] Pneumococcal 20 Conjugate, PCV20 (Prevnar 20) 2022-12-19 00:00:00 Completed [facility] Pneumococcal 20 Conjugate, PCV20 (Prevnar 20) 2022-12-19 00:00:00 Completed [facility] Pneumococcal 20 Conjugate, PCV20 (Prevnar 20) 2022-12-19 00:00:00 Completed [facility] Pneumococcal 20 Conjugate, PCV20 (Prevnar 20) 2022-12-19 00:00:00 Completed [facility] Pneumococcal 20 Conjugate, PCV20 (Prevnar 20) 2022-12-19 00:00:00 Completed [facility] Pneumococcal 20 Conjugate, PCV20 (Prevnar 20) 2022-12-19 00:00:00 Completed [facility] Vaccine Quad IM, Preserv and ABX Free 6 MO-64 YRS 2022-05-02 00:00:00 Completed [facility] Influenza Virus Vaccine Quad IM, Preserv and ABX Free 6 MO-64 YRS 2022-05-02 00:00:00 Completed [facility] Influenza Virus Vaccine Quad IM, Preserv and ABX Free 6 MO-64 YRS 2022-05-02 00:00:00 Completed [facility] Influenza Virus Vaccine Quad IM, Preserv and ABX Free 6 MO-64 YRS 2022-05-02 00:00:00 Completed [facility] Influenza Virus Vaccine Quad IM, Preserv and ABX Free 6 MO-64 YRS 2022-05-02 00:00:00 Completed [facility] Influenza Virus Vaccine Quad IM, Preserv and ABX Free 6 MO-64 YRS 2022-05-02 00:00:00 Completed [facility] Influenza Virus Vaccine Quad IM, Preserv and ABX Free 6 MO-64 YRS 2022-05-02 00:00:00 Completed [facility] Influenza Virus Vaccine Quad IM, Preserv and ABX Free 6 MO-64 YRS 2022-05-02 00:00:00 Completed [facility] Influenza Virus Vaccine Quad IM, Preserv and ABX Free 6 MO-64 YRS 2022-05-02 00:00:00 Completed [facility] Influenza Virus Vaccine Quad IM, Preserv and ABX Free 6 MO-64 YRS 2022-05-02 00:00:00 Completed [facility] Influenza Virus Vaccine Quad IM, Preserv and ABX Free 6 MO-64 YRS 2022-05-02 00:00:00 Completed [facility] Influenza Virus Vaccine Quad IM, Preserv and ABX Free 6 MO-64 YRS 2022-05-02 00:00:00 Completed [facility] Influenza Virus Vaccine Quad IM, Preserv and ABX Free 6 MO-64 YRS 2022-05-02 00:00:00 Completed [facility] Influenza Virus Vaccine Quad IM, Preserv and ABX Free 6 MO-64 YRS 2022-05-02 00:00:00 Completed [facility] Influenza Virus Vaccine Quad IM, Preserv and ABX Free 6 MO-64 YRS 2022-05-02 00:00:00 Completed [facility] Influenza Virus Vaccine Quad IM, Preserv and ABX Free 6 MO-64 YRS 2022-05-02 00:00:00 Completed [facility] Influenza Virus Vaccine Quad IM, Preserv and ABX Free 6 MO-64 YRS 2022-05-02 00:00:00 Completed [facility] Influenza Virus Vaccine Quad IM, Preserv and ABX Free 6 MO-64 YRS 2022-05-02 00:00:00 Completed [facility] Influenza Virus Vaccine Quad IM, Preserv and ABX Free 6 MO-64 YRS 2022-05-02 00:00:00 Completed [facility] Influenza Virus Vaccine Quad IM, Preserv and ABX Free 6 MO-64 YRS 2022-05-02 00:00:00 Completed [facility] Influenza Virus Vaccine Quad IM, Preserv and ABX Free 6 MO-64 YRS 2022-05-02 00:00:00 Completed [facility] Influenza Virus Vaccine Quad IM, Preserv and ABX Free 6 MO-64 YRS 2022-05-02 00:00:00 Completed [facility] Influenza Virus Vaccine Quad IM, Preserv and ABX Free 6 MO-64 YRS 2022-05-02 00:00:00 Completed [facility] Influenza Virus Vaccine Quad IM, Preserv and ABX Free 6 MO-64 YRS 2022-05-02 00:00:00 Completed [facility] Influenza Virus Vaccine Quad IM, Preserv and ABX Free 6 MO-64 YRS 2022-05-02 00:00:00 Completed [facility] Influenza Virus Vaccine Quad IM, Preserv and ABX Free 6 MO-64 YRS 2022-05-02 00:00:00 Completed [facility] Influenza Virus Vaccine Quad IM, Preserv and ABX Free 6 MO-64 YRS 2022-05-02 00:00:00 Completed [facility] Influenza Virus Vaccine Quad IM, Preserv and ABX Free 6 MO-64 YRS 2022-05-02 00:00:00 Completed [facility] Influenza Virus Vaccine Quad IM, Preserv and ABX Free 6 MO-64 YRS 2022-05-02 00:00:00 Completed [facility] Influenza Virus Vaccine Quad IM, Preserv and ABX Free 6 MO-64 YRS 2022-05-02 00:00:00 Completed [facility] Influenza Virus Vaccine Quad IM, Preserv and ABX Free 6 MO-64 YRS 2022-05-02 00:00:00 Completed [facility] Influenza Virus Vaccine Quad IM, Preserv and ABX Free 6 MO-64 YRS 2022-05-02 00:00:00 Completed [facility] Influenza Virus Vaccine Quad IM, Preserv and ABX Free 6 MO-64 YRS 2022-05-02 00:00:00 Completed [facility] Influenza Virus Vaccine Quad IM, Preserv and ABX Free 6 MO-64 YRS 2022-05-02 00:00:00 Completed [facility] Influenza Virus Vaccine Quad IM, Preserv and ABX Free 6 MO-64 YRS 2022-05-02 00:00:00 Completed [facility] Influenza Virus Vaccine Quad IM, Preserv and ABX Free 6 MO-64 YRS 2022-05-02 00:00:00 Completed [facility] Influenza Virus Vaccine Quad IM, Preserv and ABX Free 6 MO-64 YRS 2022-05-02 00:00:00 Completed [facility] Influenza Virus Vaccine Quad IM, Preserv and ABX Free 6 MO-64 YRS 2022-05-02 00:00:00 Completed [facility] Influenza Virus Vaccine Quad IM, Preserv and ABX Free 6 MO-64 YRS 2022-05-02 00:00:00 Completed [facility] Influenza Virus Vaccine Quad IM, Preserv and ABX Free 6 MO-64 YRS 2022-05-02 00:00:00 Completed [facility] Influenza Virus Vaccine Quad IM, Preserv and ABX Free 6 MO-64 YRS 2022-05-02 00:00:00 Completed [facility] Influenza Virus Vaccine Quad IM, Preserv and ABX Free 6 MO-64 YRS 2022-05-02 00:00:00 Completed [facility] Influenza Virus Vaccine Quad IM, Preserv and ABX Free 6 MO-64 YRS 2022-05-02 00:00:00 Completed [facility] Influenza Virus Vaccine Quad IM, Preserv and ABX Free 6 MO-64 YRS 2022-05-02 00:00:00 Completed [facility] Influenza Virus Vaccine Quad IM, Preserv and ABX Free 6 MO-64 YRS 2022-05-02 00:00:00 Completed [facility] Influenza Virus Vaccine Quad IM, Preserv and ABX Free 6 MO-64 YRS 2022-05-02 00:00:00 Completed [facility] Influenza Virus Vaccine Quad IM, Preserv and ABX Free 6 MO-64 YRS 2022-05-02 00:00:00 Completed [facility] Influenza Virus Vaccine Quad IM, Preserv and ABX Free 6 MO-64 YRS 2022-05-02 00:00:00 Completed [facility] Influenza Virus Vaccine Quad IM, Preserv and ABX Free 6 MO-64 YRS (FLUCELVAX) 2022-05-02 00:00:00 Completed [facility] Influenza Virus Vaccine Quad IM, Preserv and ABX Free 6 MO-64 YRS (FLUCELVAX) 2022-05-02 00:00:00 Completed [facility] Influenza Virus Vaccine Quad IM, Preserv and ABX Free 6 MO-64 YRS (FLUCELVAX) 2022-05-02 00:00:00 Completed [facility] Influenza Virus Vaccine Quad IM, Preserv and ABX Free 6 MO-64 YRS (FLUCELVAX) 2022-05-02 00:00:00 Completed [facility] Influenza Virus Vaccine Quad IM, Preserv and ABX Free 6 MO-64 YRS (FLUCELVAX) 2022-05-02 00:00:00 Completed [facility] Pneumococcal Polysaccharide, PPSV23 (PNEUMOVAX) 2021-10-04 00:00:00 Completed [facility] Influenza Virus Vaccine Quad .5 mL IM 6+ MO 2021-10-04 00:00:00 Completed [facility] Pneumococcal Polysaccharide, PPSV23 (PNEUMOVAX) 2021-10-04 00:00:00 Completed [facility] Influenza Virus Vaccine Quad .5 mL IM 6+ MO 2021-10-04 00:00:00 Completed [facility] Pneumococcal Polysaccharide, PPSV23 (PNEUMOVAX) 2021-10-04 00:00:00 Completed [facility] Influenza Virus Vaccine Quad .5 mL IM 6+ MO 2021-10-04 00:00:00 Completed [facility] Pneumococcal Polysaccharide, PPSV23 (PNEUMOVAX) 2021-10-04 00:00:00 Completed [facility] Influenza Virus Vaccine Quad .5 mL IM 6+ MO 2021-10-04 00:00:00 Completed [facility] Pneumococcal Polysaccharide, PPSV23 (PNEUMOVAX) 2021-10-04 00:00:00 Completed [facility] Influenza Virus Vaccine Quad .5 mL IM 6+ MO 2021-10-04 00:00:00 Completed [facility] Pneumococcal Polysaccharide, PPSV23 (PNEUMOVAX) 2021-10-04 00:00:00 Completed [facility] Influenza Virus Vaccine Quad .5 mL IM 6+ MO 2021-10-04 00:00:00 Completed [facility] Pneumococcal Polysaccharide, PPSV23 (PNEUMOVAX) 2021-10-04 00:00:00 Completed [facility] Influenza Virus Vaccine Quad .5 mL IM 6+ MO 2021-10-04 00:00:00 Completed [facility] Pneumococcal Polysaccharide, PPSV23 (PNEUMOVAX) 2021-10-04 00:00:00 Completed [facility] Influenza Virus Vaccine Quad .5 mL IM 6+ MO 2021-10-04 00:00:00 Completed [facility] Pneumococcal Polysaccharide, PPSV23 (PNEUMOVAX) 2021-10-04 00:00:00 Completed [facility] Influenza Virus Vaccine Quad .5 mL IM 6+ MO 2021-10-04 00:00:00 Completed [facility] Pneumococcal Polysaccharide, PPSV23 (PNEUMOVAX) 2021-10-04 00:00:00 Completed [facility] Influenza Virus Vaccine Quad .5 mL IM 6+ MO 2021-10-04 00:00:00 Completed [facility] Pneumococcal Polysaccharide, PPSV23 (PNEUMOVAX) 2021-10-04 00:00:00 Completed [facility] Influenza Virus Vaccine Quad .5 mL IM 6+ MO 2021-10-04 00:00:00 Completed [facility] Pneumococcal Polysaccharide, PPSV23 (PNEUMOVAX) 2021-10-04 00:00:00 Completed [facility] Influenza Virus Vaccine Quad .5 mL IM 6+ MO 2021-10-04 00:00:00 Completed [facility] Pneumococcal Polysaccharide, PPSV23 (PNEUMOVAX) 2021-10-04 00:00:00 Completed [facility] Influenza Virus Vaccine Quad .5 mL IM 6+ MO 2021-10-04 00:00:00 Completed [facility] Pneumococcal Polysaccharide, PPSV23 (PNEUMOVAX) 2021-10-04 00:00:00 Completed [facility] Influenza Virus Vaccine Quad .5 mL IM 6+ MO 2021-10-04 00:00:00 Completed [facility] Pneumococcal Polysaccharide, PPSV23 (PNEUMOVAX) 2021-10-04 00:00:00 Completed [facility] Influenza Virus Vaccine Quad .5 mL IM 6+ MO 2021-10-04 00:00:00 Completed [facility] Pneumococcal Polysaccharide, PPSV23 (PNEUMOVAX) 2021-10-04 00:00:00 Completed [facility] Influenza Virus Vaccine Quad .5 mL IM 6+ MO 2021-10-04 00:00:00 Completed [facility] Pneumococcal Polysaccharide, PPSV23 (PNEUMOVAX) 2021-10-04 00:00:00 Completed [facility] Influenza Virus Vaccine Quad .5 mL IM 6+ MO 2021-10-04 00:00:00 Completed [facility] Pneumococcal Polysaccharide, PPSV23 (PNEUMOVAX) 2021-10-04 00:00:00 Completed [facility] Influenza Virus Vaccine Quad .5 mL IM 6+ MO 2021-10-04 00:00:00 Completed [facility] Pneumococcal Polysaccharide, PPSV23 (PNEUMOVAX) 2021-10-04 00:00:00 Completed [facility] Influenza Virus Vaccine Quad .5 mL IM 6+ MO 2021-10-04 00:00:00 Completed [facility] Pneumococcal Polysaccharide, PPSV23 (PNEUMOVAX) 2021-10-04 00:00:00 Completed [facility] Influenza Virus Vaccine Quad .5 mL IM 6+ MO 2021-10-04 00:00:00 Completed [facility] Pneumococcal Polysaccharide, PPSV23 (PNEUMOVAX) 2021-10-04 00:00:00 Completed [facility] Influenza Virus Vaccine Quad .5 mL IM 6+ MO 2021-10-04 00:00:00 Completed [facility] Pneumococcal Polysaccharide, PPSV23 (PNEUMOVAX) 2021-10-04 00:00:00 Completed [facility] Influenza Virus Vaccine Quad .5 mL IM 6+ MO 2021-10-04 00:00:00 Completed [facility] Pneumococcal Polysaccharide, PPSV23 (PNEUMOVAX) 2021-10-04 00:00:00 Completed [facility] Influenza Virus Vaccine Quad .5 mL IM 6+ MO 2021-10-04 00:00:00 Completed [facility] Pneumococcal Polysaccharide, PPSV23 (PNEUMOVAX) 2021-10-04 00:00:00 Completed [facility] Influenza Virus Vaccine Quad .5 mL IM 6+ MO 2021-10-04 00:00:00 Completed [facility] Pneumococcal Polysaccharide, PPSV23 (PNEUMOVAX) 2021-10-04 00:00:00 Completed [facility] Influenza Virus Vaccine Quad .5 mL IM 6+ MO 2021-10-04 00:00:00 Completed [facility] Pneumococcal Polysaccharide, PPSV23 (PNEUMOVAX) 2021-10-04 00:00:00 Completed [facility] Influenza Virus Vaccine Quad .5 mL IM 6+ MO 2021-10-04 00:00:00 Completed [facility] Pneumococcal Polysaccharide, PPSV23 (PNEUMOVAX) 2021-10-04 00:00:00 Completed [facility] Influenza Virus Vaccine Quad .5 mL IM 6+ MO 2021-10-04 00:00:00 Completed [facility] Pneumococcal Polysaccharide, PPSV23 (PNEUMOVAX) 2021-10-04 00:00:00 Completed [facility] Influenza Virus Vaccine Quad .5 mL IM 6+ MO 2021-10-04 00:00:00 Completed [facility] Pneumococcal Polysaccharide, PPSV23 (PNEUMOVAX) 2021-10-04 00:00:00 Completed [facility] Influenza Virus Vaccine Quad .5 mL IM 6+ MO 2021-10-04 00:00:00 Completed [facility] Pneumococcal Polysaccharide, PPSV23 (PNEUMOVAX) 2021-10-04 00:00:00 Completed [facility] Influenza Virus Vaccine Quad .5 mL IM 6+ MO 2021-10-04 00:00:00 Completed [facility] Pneumococcal Polysaccharide, PPSV23 (PNEUMOVAX) 2021-10-04 00:00:00 Completed [facility] Influenza Virus Vaccine Quad .5 mL IM 6+ MO 2021-10-04 00:00:00 Completed [facility] Pneumococcal Polysaccharide, PPSV23 (PNEUMOVAX) 2021-10-04 00:00:00 Completed [facility] Influenza Virus Vaccine Quad .5 mL IM 6+ MO 2021-10-04 00:00:00 Completed [facility] Pneumococcal Polysaccharide, PPSV23 (PNEUMOVAX) 2021-10-04 00:00:00 Completed [facility] Influenza Virus Vaccine Quad .5 mL IM 6+ MO 2021-10-04 00:00:00 Completed [facility] Pneumococcal Polysaccharide, PPSV23 (PNEUMOVAX) 2021-10-04 00:00:00 Completed [facility] Influenza Virus Vaccine Quad .5 mL IM 6+ MO 2021-10-04 00:00:00 Completed [facility] Pneumococcal Polysaccharide, PPSV23 (PNEUMOVAX) 2021-10-04 00:00:00 Completed [facility] Influenza Virus Vaccine Quad .5 mL IM 6+ MO 2021-10-04 00:00:00 Completed [facility] Pneumococcal Polysaccharide, PPSV23 (PNEUMOVAX) 2021-10-04 00:00:00 Completed [facility] Influenza Virus Vaccine Quad .5 mL IM 6+ MO 2021-10-04 00:00:00 Completed [facility] Pneumococcal Polysaccharide, PPSV23 (PNEUMOVAX) 2021-10-04 00:00:00 Completed [facility] Influenza Virus Vaccine Quad .5 mL IM 6+ MO 2021-10-04 00:00:00 Completed [facility] Pneumococcal Polysaccharide, PPSV23 (PNEUMOVAX) 2021-10-04 00:00:00 Completed [facility] Influenza Virus Vaccine Quad .5 mL IM 6+ MO 2021-10-04 00:00:00 Completed [facility] Pneumococcal Polysaccharide, PPSV23 (PNEUMOVAX) 2021-10-04 00:00:00 Completed [facility] Influenza Virus Vaccine Quad .5 mL IM 6+ MO 2021-10-04 00:00:00 Completed [facility] Pneumococcal Polysaccharide, PPSV23 (PNEUMOVAX) 2021-10-04 00:00:00 Completed [facility] Influenza Virus Vaccine Quad .5 mL IM 6+ MO 2021-10-04 00:00:00 Completed [facility] Pneumococcal Polysaccharide, PPSV23 (PNEUMOVAX) 2021-10-04 00:00:00 Completed [facility] Influenza Virus Vaccine Quad .5 mL IM 6+ MO 2021-10-04 00:00:00 Completed [facility] Pneumococcal Polysaccharide, PPSV23 (PNEUMOVAX) 2021-10-04 00:00:00 Completed [facility] Influenza Virus Vaccine Quad .5 mL IM 6+ MO 2021-10-04 00:00:00 Completed [facility] Pneumococcal Polysaccharide, PPSV23 (PNEUMOVAX) 2021-10-04 00:00:00 Completed [facility] Influenza Virus Vaccine Quad .5 mL IM 6+ MO 2021-10-04 00:00:00 Completed [facility] Pneumococcal Polysaccharide, PPSV23 (PNEUMOVAX) 2021-10-04 00:00:00 Completed [facility] Influenza Virus Vaccine Quad .5 mL IM 6+ MO 2021-10-04 00:00:00 Completed [facility] Pneumococcal Polysaccharide, PPSV23 (PNEUMOVAX) 2021-10-04 00:00:00 Completed [facility] Influenza Virus Vaccine Quad .5 mL IM 6+ MO 2021-10-04 00:00:00 Completed [facility] Pneumococcal Polysaccharide, PPSV23 (PNEUMOVAX) 2021-10-04 00:00:00 Completed [facility] Influenza Virus Vaccine Quad .5 mL IM 6+ MO 2021-10-04 00:00:00 Completed [facility] Pneumococcal Polysaccharide, PPSV23 (PNEUMOVAX) 2021-10-04 00:00:00 Completed [facility] Influenza Virus Vaccine Quad .5 mL IM 6+ MO 2021-10-04 00:00:00 Completed [facility] Pneumococcal Polysaccharide, PPSV23 (PNEUMOVAX) 2021-10-04 00:00:00 Completed [facility] Influenza Virus Vaccine Quad .5 mL IM 6+ MO 2021-10-04 00:00:00 Completed [facility] Pneumococcal Polysaccharide, PPSV23 (PNEUMOVAX) 2021-10-04 00:00:00 Completed [facility] Influenza Virus Vaccine Quad .5 mL IM 6+ MO 2021-10-04 00:00:00 Completed [facility] Pneumococcal Polysaccharide, PPSV23 (PNEUMOVAX) 2021-10-04 00:00:00 Completed [facility] Influenza Virus Vaccine Quad .5 mL IM 6+ MO 2021-10-04 00:00:00 Completed [facility] Pneumococcal Polysaccharide, PPSV23 (PNEUMOVAX) 2021-10-04 00:00:00 Completed [facility] Influenza Virus Vaccine Quad .5 mL IM 6+ MO 2021-10-04 00:00:00 Completed [facility] Pneumococcal Polysaccharide, PPSV23 (PNEUMOVAX) 2021-10-04 00:00:00 Completed [facility] Influenza Virus Vaccine Quad .5 mL IM 6+ MO 2021-10-04 00:00:00 Completed [facility] Pneumococcal Polysaccharide, PPSV23 (PNEUMOVAX) 2021-10-04 00:00:00 Completed [facility] Influenza Virus Vaccine Quad .5 mL IM 6+ MO 2021-10-04 00:00:00 Completed [facility] Pneumococcal Polysaccharide, PPSV23 (PNEUMOVAX) 2021-10-04 00:00:00 Completed [facility] Influenza Virus Vaccine Quad .5 mL IM 6+ MO 2021-10-04 00:00:00 Completed [facility] Pneumococcal Polysaccharide, PPSV23 (PNEUMOVAX) 2021-10-04 00:00:00 Completed [facility] Influenza Virus Vaccine Quad .5 mL IM 6+ MO 2021-10-04 00:00:00 Completed [facility] Pneumococcal Polysaccharide, PPSV23 (PNEUMOVAX) 2021-10-04 00:00:00 Completed [facility] Influenza Virus Vaccine Quad .5 mL IM 6+ MO 2021-10-04 00:00:00 Completed [facility] Pneumococcal Polysaccharide, PPSV23 (PNEUMOVAX) 2021-10-04 00:00:00 Completed [facility] Influenza Virus Vaccine Quad .5 mL IM 6+ MO 2021-10-04 00:00:00 Completed [facility] Pneumococcal Polysaccharide, PPSV23 (PNEUMOVAX) 2021-10-04 00:00:00 Completed [facility] Influenza Virus Vaccine Quad .5 mL IM 6+ MO 2021-10-04 00:00:00 Completed [facility] Pneumococcal Polysaccharide, PPSV23 (PNEUMOVAX) 2021-10-04 00:00:00 Completed [facility] Influenza Virus Vaccine Quad .5 mL IM 6+ MO 2021-10-04 00:00:00 Completed [facility] Pneumococcal Polysaccharide, PPSV23 (PNEUMOVAX) 2021-10-04 00:00:00 Completed [facility] Influenza Virus Vaccine Quad .5 mL IM 6+ MO 2021-10-04 00:00:00 Completed [facility] Pneumococcal Polysaccharide, PPSV23 (PNEUMOVAX) 2021-10-04 00:00:00 Completed [facility] Influenza Virus Vaccine Quad .5 mL IM 6+ MO 2021-10-04 00:00:00 Completed [facility] Pneumococcal Polysaccharide, PPSV23 (PNEUMOVAX) 2021-10-04 00:00:00 Completed [facility] Influenza Virus Vaccine Quad .5 mL IM 6+ MO 2021-10-04 00:00:00 Completed [facility] Pneumococcal Polysaccharide, PPSV23 (PNEUMOVAX) 2021-10-04 00:00:00 Completed [facility] Influenza Virus Vaccine Quad .5 mL IM 6+ MO (FLUZONE/FLULAVAL/F LUARIX) 2021-10-04 00:00:00 Completed [facility] Pneumococcal Polysaccharide, PPSV23 (PNEUMOVAX) 2021-10-04 00:00:00 Completed [facility] Influenza Virus Vaccine Quad .5 mL IM 6+ MO (FLUZONE/FLULAVAL/F LUARIX) 2021-10-04 00:00:00 Completed [facility] Pneumococcal Polysaccharide, PPSV23 (PNEUMOVAX) 2021-10-04 00:00:00 Completed [facility] Influenza Virus Vaccine Quad .5 mL IM 6+ MO (FLUZONE/FLULAVAL/F LUARIX) 2021-10-04 00:00:00 Completed [facility] Pneumococcal Polysaccharide, PPSV23 (PNEUMOVAX) 2021-10-04 00:00:00 Completed [facility] Influenza Virus Vaccine Quad .5 mL IM 6+ MO (FLUZONE/FLULAVAL/F LUARIX) 2021-10-04 00:00:00 Completed [facility] Pneumococcal Polysaccharide, PPSV23 (PNEUMOVAX) 2021-10-04 00:00:00 Completed [facility] Influenza Virus Vaccine Quad .5 mL IM 6+ MO (FLUZONE/FLULAVAL/F LUARIX) 2021-10-04 00:00:00 Completed SARS-COV-2 COVID-19 PFIZER VACCINE 2021-03-08 00:00:00 Completed [facility] SARS-COV-2 COVID-19 PFIZER VACCINE 2021-03-08 00:00:00 Completed [facility] SARS-COV-2 COVID-19 PFIZER VACCINE 2021-03-08 00:00:00 Completed [facility] SARS-COV-2 COVID-19 PFIZER VACCINE 2021-03-08 00:00:00 Completed [facility] SARS-COV-2 COVID-19 PFIZER VACCINE 2021-03-08 00:00:00 Completed [facility] SARS-COV-2 COVID-19 PFIZER VACCINE 2021-03-08 00:00:00 Completed [facility] SARS-COV-2 COVID-19 PFIZER VACCINE 2021-03-08 00:00:00 Completed [facility] SARS-COV-2 COVID-19 PFIZER VACCINE 2021-03-08 00:00:00 Completed [facility] SARS-COV-2 COVID-19 PFIZER VACCINE 2021-03-08 00:00:00 Completed [facility] SARS-COV-2 COVID-19 PFIZER VACCINE 2021-03-08 00:00:00 Completed [facility] SARS-COV-2 COVID-19 PFIZER VACCINE 2021-03-08 00:00:00 Completed [facility] SARS-COV-2 COVID-19 PFIZER VACCINE 2021-03-08 00:00:00 Completed [facility] SARS-COV-2 COVID-19 PFIZER VACCINE 2021-03-08 00:00:00 Completed [facility] SARS-COV-2 COVID-19 PFIZER VACCINE 2021-03-08 00:00:00 Completed [facility] SARS-COV-2 COVID-19 PFIZER VACCINE 2021-03-08 00:00:00 Completed [facility] SARS-COV-2 COVID-19 PFIZER VACCINE 2021-03-08 00:00:00 Completed [facility] SARS-COV-2 COVID-19 PFIZER VACCINE 2021-03-08 00:00:00 Completed [facility] SARS-COV-2 COVID-19 PFIZER VACCINE 2021-03-08 00:00:00 Completed [facility] SARS-COV-2 COVID-19 PFIZER VACCINE 2021-03-08 00:00:00 Completed [facility] SARS-COV-2 COVID-19 PFIZER VACCINE 2021-03-08 00:00:00 Completed [facility] SARS-COV-2 COVID-19 PFIZER VACCINE 2021-03-08 00:00:00 Completed [facility] SARS-COV-2 COVID-19 PFIZER VACCINE 2021-03-08 00:00:00 Completed [facility] SARS-COV-2 COVID-19 PFIZER VACCINE 2021-03-08 00:00:00 Completed [facility] SARS-COV-2 COVID-19 PFIZER VACCINE 2021-03-08 00:00:00 Completed [facility] SARS-COV-2 COVID-19 PFIZER VACCINE 2021-03-08 00:00:00 Completed [facility] SARS-COV-2 COVID-19 PFIZER VACCINE 2021-03-08 00:00:00 Completed [facility] SARS-COV-2 COVID-19 PFIZER VACCINE 2021-03-08 00:00:00 Completed [facility] SARS-COV-2 COVID-19 PFIZER VACCINE 2021-03-08 00:00:00 Completed [facility] SARS-COV-2 COVID-19 PFIZER VACCINE 2021-03-08 00:00:00 Completed [facility] SARS-COV-2 COVID-19 PFIZER VACCINE 2021-03-08 00:00:00 Completed [facility] SARS-COV-2 COVID-19 PFIZER VACCINE 2021-03-08 00:00:00 Completed [facility] SARS-COV-2 COVID-19 PFIZER VACCINE 2021-03-08 00:00:00 Completed [facility] SARS-COV-2 COVID-19 PFIZER VACCINE 2021-03-08 00:00:00 Completed [facility] SARS-COV-2 COVID-19 PFIZER VACCINE 2021-03-08 00:00:00 Completed [facility] SARS-COV-2 COVID-19 PFIZER VACCINE 2021-03-08 00:00:00 Completed [facility] SARS-COV-2 COVID-19 PFIZER VACCINE 2021-03-08 00:00:00 Completed [facility] SARS-COV-2 COVID-19 PFIZER VACCINE 2021-03-08 00:00:00 Completed [facility] SARS-COV-2 COVID-19 PFIZER VACCINE 2021-03-08 00:00:00 Completed [facility] SARS-COV-2 COVID-19 PFIZER VACCINE 2021-03-08 00:00:00 Completed [facility] SARS-COV-2 COVID-19 PFIZER VACCINE 2021-03-08 00:00:00 Completed [facility] SARS-COV-2 COVID-19 PFIZER VACCINE 2021-03-08 00:00:00 Completed [facility] SARS-COV-2 COVID-19 PFIZER VACCINE 2021-03-08 00:00:00 Completed [facility] SARS-COV-2 COVID-19 PFIZER VACCINE 2021-03-08 00:00:00 Completed [facility] SARS-COV-2 COVID-19 PFIZER VACCINE 2021-03-08 00:00:00 Completed [facility] SARS-COV-2 COVID-19 PFIZER VACCINE 2021-03-08 00:00:00 Completed [facility] SARS-COV-2 COVID-19 PFIZER VACCINE 2021-03-08 00:00:00 Completed [facility] SARS-COV-2 COVID-19 PFIZER VACCINE 2021-03-08 00:00:00 Completed [facility] SARS-COV-2 COVID-19 PFIZER VACCINE 2021-03-08 00:00:00 Completed [facility] SARS-COV-2 COVID-19 PFIZER VACCINE 2021-03-08 00:00:00 Completed [facility] SARS-COV-2 COVID-19 PFIZER VACCINE 2021-03-08 00:00:00 Completed [facility] SARS-COV-2 COVID-19 PFIZER VACCINE 2021-03-08 00:00:00 Completed [facility] SARS-COV-2 COVID-19 PFIZER VACCINE 2021-03-08 00:00:00 Completed [facility] SARS-COV-2 COVID-19 PFIZER VACCINE 2021-03-08 00:00:00 Completed [facility] SARS-COV-2 COVID-19 PFIZER VACCINE 2021-03-08 00:00:00 Completed [facility] SARS-COV-2 COVID-19 PFIZER VACCINE 2021-03-08 00:00:00 Completed [facility] SARS-COV-2 COVID-19 PFIZER VACCINE 2021-03-08 00:00:00 Completed [facility] SARS-COV-2 COVID-19 PFIZER VACCINE 2021-03-08 00:00:00 Completed [facility] SARS-COV-2 COVID-19 PFIZER VACCINE 2021-03-08 00:00:00 Completed [facility] SARS-COV-2 COVID-19 PFIZER VACCINE 2021-03-08 00:00:00 Completed [facility] SARS-COV-2 COVID-19 PFIZER VACCINE 2021-03-08 00:00:00 Completed [facility] SARS-COV-2 COVID-19 PFIZER VACCINE 2021-03-08 00:00:00 Completed [facility] SARS-COV-2 COVID-19 PFIZER VACCINE 2021-03-08 00:00:00 Completed [facility] SARS-COV-2 COVID-19 PFIZER VACCINE 2021-03-08 00:00:00 Completed [facility] SARS-COV-2 COVID-19 PFIZER VACCINE 2021-03-08 00:00:00 Completed [facility] SARS-COV-2 COVID-19 PFIZER VACCINE 2021-03-08 00:00:00 Completed [facility] SARS-COV-2 COVID-19 PFIZER VACCINE 2021-03-08 00:00:00 Completed [facility] SARS-COV-2 COVID-19 PFIZER VACCINE 2021-03-08 00:00:00 Completed SARS-COV-2 COVID-19 PFIZER VACCINE 2021-02-15 00:00:00 Completed [facility] SARS-COV-2 COVID-19 PFIZER VACCINE 2021-02-15 00:00:00 Completed [facility] SARS-COV-2 COVID-19 PFIZER VACCINE 2021-02-15 00:00:00 Completed [facility] SARS-COV-2 COVID-19 PFIZER VACCINE 2021-02-15 00:00:00 Completed [facility] SARS-COV-2 COVID-19 PFIZER VACCINE 2021-02-15 00:00:00 Completed [facility] SARS-COV-2 COVID-19 PFIZER VACCINE 2021-02-15 00:00:00 Completed [facility] SARS-COV-2 COVID-19 PFIZER VACCINE 2021-02-15 00:00:00 Completed [facility] SARS-COV-2 COVID-19 PFIZER VACCINE 2021-02-15 00:00:00 Completed [facility] SARS-COV-2 COVID-19 PFIZER VACCINE 2021-02-15 00:00:00 Completed [facility] SARS-COV-2 COVID-19 PFIZER VACCINE 2021-02-15 00:00:00 Completed [facility] SARS-COV-2 COVID-19 PFIZER VACCINE 2021-02-15 00:00:00 Completed [facility] SARS-COV-2 COVID-19 PFIZER VACCINE 2021-02-15 00:00:00 Completed [facility] SARS-COV-2 COVID-19 PFIZER VACCINE 2021-02-15 00:00:00 Completed [facility] SARS-COV-2 COVID-19 PFIZER VACCINE 2021-02-15 00:00:00 Completed [facility] SARS-COV-2 COVID-19 PFIZER VACCINE 2021-02-15 00:00:00 Completed [facility] SARS-COV-2 COVID-19 PFIZER VACCINE 2021-02-15 00:00:00 Completed [facility] SARS-COV-2 COVID-19 PFIZER VACCINE 2021-02-15 00:00:00 Completed [facility] SARS-COV-2 COVID-19 PFIZER VACCINE 2021-02-15 00:00:00 Completed [facility] SARS-COV-2 COVID-19 PFIZER VACCINE 2021-02-15 00:00:00 Completed [facility] SARS-COV-2 COVID-19 PFIZER VACCINE 2021-02-15 00:00:00 Completed [facility] SARS-COV-2 COVID-19 PFIZER VACCINE 2021-02-15 00:00:00 Completed [facility] SARS-COV-2 COVID-19 PFIZER VACCINE 2021-02-15 00:00:00 Completed [facility] SARS-COV-2 COVID-19 PFIZER VACCINE 2021-02-15 00:00:00 Completed [facility] SARS-COV-2 COVID-19 PFIZER VACCINE 2021-02-15 00:00:00 Completed [facility] SARS-COV-2 COVID-19 PFIZER VACCINE 2021-02-15 00:00:00 Completed [facility] SARS-COV-2 COVID-19 PFIZER VACCINE 2021-02-15 00:00:00 Completed [facility] SARS-COV-2 COVID-19 PFIZER VACCINE 2021-02-15 00:00:00 Completed [facility] SARS-COV-2 COVID-19 PFIZER VACCINE 2021-02-15 00:00:00 Completed [facility] SARS-COV-2 COVID-19 PFIZER VACCINE 2021-02-15 00:00:00 Completed [facility] SARS-COV-2 COVID-19 PFIZER VACCINE 2021-02-15 00:00:00 Completed [facility] SARS-COV-2 COVID-19 PFIZER VACCINE 2021-02-15 00:00:00 Completed [facility] SARS-COV-2 COVID-19 PFIZER VACCINE 2021-02-15 00:00:00 Completed [facility] SARS-COV-2 COVID-19 PFIZER VACCINE 2021-02-15 00:00:00 Completed [facility] SARS-COV-2 COVID-19 PFIZER VACCINE 2021-02-15 00:00:00 Completed [facility] SARS-COV-2 COVID-19 PFIZER VACCINE 2021-02-15 00:00:00 Completed [facility] SARS-COV-2 COVID-19 PFIZER VACCINE 2021-02-15 00:00:00 Completed [facility] SARS-COV-2 COVID-19 PFIZER VACCINE 2021-02-15 00:00:00 Completed [facility] SARS-COV-2 COVID-19 PFIZER VACCINE 2021-02-15 00:00:00 Completed [facility] SARS-COV-2 COVID-19 PFIZER VACCINE 2021-02-15 00:00:00 Completed [facility] SARS-COV-2 COVID-19 PFIZER VACCINE 2021-02-15 00:00:00 Completed [facility] SARS-COV-2 COVID-19 PFIZER VACCINE 2021-02-15 00:00:00 Completed [facility] SARS-COV-2 COVID-19 PFIZER VACCINE 2021-02-15 00:00:00 Completed [facility] SARS-COV-2 COVID-19 PFIZER VACCINE 2021-02-15 00:00:00 Completed [facility] SARS-COV-2 COVID-19 PFIZER VACCINE 2021-02-15 00:00:00 Completed [facility] SARS-COV-2 COVID-19 PFIZER VACCINE 2021-02-15 00:00:00 Completed [facility] SARS-COV-2 COVID-19 PFIZER VACCINE 2021-02-15 00:00:00 Completed [facility] SARS-COV-2 COVID-19 PFIZER VACCINE 2021-02-15 00:00:00 Completed [facility] SARS-COV-2 COVID-19 PFIZER VACCINE 2021-02-15 00:00:00 Completed [facility] SARS-COV-2 COVID-19 PFIZER VACCINE 2021-02-15 00:00:00 Completed [facility] SARS-COV-2 COVID-19 PFIZER VACCINE 2021-02-15 00:00:00 Completed [facility] SARS-COV-2 COVID-19 PFIZER VACCINE 2021-02-15 00:00:00 Completed [facility] SARS-COV-2 COVID-19 PFIZER VACCINE 2021-02-15 00:00:00 Completed [facility] SARS-COV-2 COVID-19 PFIZER VACCINE 2021-02-15 00:00:00 Completed [facility] SARS-COV-2 COVID-19 PFIZER VACCINE 2021-02-15 00:00:00 Completed [facility] SARS-COV-2 COVID-19 PFIZER VACCINE 2021-02-15 00:00:00 Completed [facility] SARS-COV-2 COVID-19 PFIZER VACCINE 2021-02-15 00:00:00 Completed [facility] SARS-COV-2 COVID-19 PFIZER VACCINE 2021-02-15 00:00:00 Completed [facility] SARS-COV-2 COVID-19 PFIZER VACCINE 2021-02-15 00:00:00 Completed [facility] SARS-COV-2 COVID-19 PFIZER VACCINE 2021-02-15 00:00:00 Completed [facility] SARS-COV-2 COVID-19 PFIZER VACCINE 2021-02-15 00:00:00 Completed [facility] SARS-COV-2 COVID-19 PFIZER VACCINE 2021-02-15 00:00:00 Completed [facility] SARS-COV-2 COVID-19 PFIZER VACCINE 2021-02-15 00:00:00 Completed [facility] SARS-COV-2 COVID-19 PFIZER VACCINE 2021-02-15 00:00:00 Completed [facility] SARS-COV-2 COVID-19 PFIZER VACCINE 2021-02-15 00:00:00 Completed [facility] SARS-COV-2 COVID-19 PFIZER VACCINE 2021-02-15 00:00:00 Completed [facility] SARS-COV-2 COVID-19 PFIZER VACCINE 2021-02-15 00:00:00 Completed [facility] SARS-COV-2 COVID-19 PFIZER VACCINE 2021-02-15 00:00:00 Completed [facility] SARS-COV-2 COVID-19 PFIZER VACCINE Unknown Completed [facility] Pneumococcal Polysaccharide, PPSV23 (PNEUMOVAX) Unknown Completed [facility] Influenza Virus Vaccine Quad .5 mL IM 6+ MO (FLUZONE/FLULAVAL/F LUARIX) Unknown Completed [facility] Influenza Virus Vaccine Quad IM, Preserv and ABX Free 6 MO-64 YRS (FLUCELVAX) Unknown Completed [facility] Pneumococcal 20 Conjugate, PCV20 (Prevnar 20) Unknown Completed [facility] SARS-COV-2 COVID-19 PFIZER VACCINE Unknown Completed [facility] Pneumococcal Polysaccharide, PPSV23 (PNEUMOVAX) Unknown Completed [facility] Influenza Virus Vaccine Quad .5 mL IM 6+ MO (FLUZONE/FLULAVAL/F LUARIX) Unknown Completed [facility] Influenza Virus Vaccine Quad IM, Preserv and ABX Free 6 MO-64 YRS (FLUCELVAX) Unknown Completed [facility] Pneumococcal 20 Conjugate, PCV20 (Prevnar 20) Unknown Completed [facility] SARS-COV-2 COVID-19 PFIZER VACCINE Unknown Completed [facility] Pneumococcal Polysaccharide, PPSV23 (PNEUMOVAX) Unknown Completed [facility] Influenza Virus Vaccine Quad .5 mL IM 6+ MO (FLUZONE/FLULAVAL/F LUARIX) Unknown Completed [facility] Influenza Virus Vaccine Quad IM, Preserv and ABX Free 6 MO-64 YRS (FLUCELVAX) Unknown Completed [facility] Pneumococcal 20 Conjugate, PCV20 (Prevnar 20) Unknown Completed [facility] SARS-COV-2 COVID-19 PFIZER VACCINE Unknown Completed [facility] Pneumococcal Polysaccharide, PPSV23 (PNEUMOVAX) Unknown Completed [facility] Influenza Virus Vaccine Quad .5 mL IM 6+ MO (FLUZONE/FLULAVAL/F LUARIX) Unknown Completed [facility] Influenza Virus Vaccine Quad IM, Preserv and ABX Free 6 MO-64 YRS (FLUCELVAX) Unknown Completed [facility] Pneumococcal 20 Conjugate, PCV20 (Prevnar 20) Unknown Completed [facility] SARS-COV-2 COVID-19 PFIZER VACCINE Unknown Completed [facility] Pneumococcal Polysaccharide, PPSV23 (PNEUMOVAX) Unknown Completed [facility] Influenza Virus Vaccine Quad .5 mL IM 6+ MO (FLUZONE/FLULAVAL/F LUARIX) Unknown Completed [facility] Influenza Virus Vaccine Quad IM, Preserv and ABX Free 6 MO-64 YRS (FLUCELVAX) Unknown Completed [facility] Pneumococcal 20 Conjugate, PCV20 (Prevnar 20) Unknown Completed [facility] SARS-COV-2 COVID-19 PFIZER VACCINE Unknown Completed [facility] SARS-COV-2 COVID-19 PFIZER VACCINE Unknown Completed [facility] Pneumococcal Polysaccharide, PPSV23 (PNEUMOVAX) Unknown Completed [facility] Influenza Virus Vaccine Quad .5 mL IM 6+ MO (FLUZONE/FLULAVAL/F LUARIX) Unknown Completed [facility] Influenza Virus Vaccine Quad IM, Preserv and ABX Free 6 MO-64 YRS (FLUCELVAX) Unknown Completed [facility] Pneumococcal 20 Conjugate, PCV20 (Prevnar 20) Unknown Completed [facility] SARS-COV-2 COVID-19 PFIZER VACCINE Unknown Completed [facility] Pneumococcal Polysaccharide, PPSV23 (PNEUMOVAX) Unknown Completed [facility] Influenza Virus Vaccine Quad .5 mL IM 6+ MO (FLUZONE/FLULAVAL/F LUARIX) Unknown Completed [facility] Influenza Virus Vaccine Quad IM, Preserv and ABX Free 6 MO-64 YRS (FLUCELVAX) Unknown Completed [facility] Pneumococcal 20 Conjugate, PCV20 (Prevnar 20) Unknown Completed [facility] SARS-COV-2 COVID-19 PFIZER VACCINE Unknown Completed [facility] Pneumococcal Polysaccharide, PPSV23 (PNEUMOVAX) Unknown Completed [facility] Influenza Virus Vaccine Quad .5 mL IM 6+ MO (FLUZONE/FLULAVAL/F LUARIX) Unknown Completed [facility] Influenza Virus Vaccine Quad IM, Preserv and ABX Free 6 MO-64 YRS (FLUCELVAX) Unknown Completed [facility] Pneumococcal 20 Conjugate, PCV20 (Prevnar 20) Unknown Completed [facility] SARS-COV-2 COVID-19 PFIZER VACCINE Unknown Completed [facility] Pneumococcal Polysaccharide, PPSV23 (PNEUMOVAX) Unknown Completed [facility] Influenza Virus Vaccine Quad .5 mL IM 6+ MO (FLUZONE/FLULAVAL/F LUARIX) Unknown Completed [facility] Influenza Virus Vaccine Quad IM, Preserv and ABX Free 6 MO-64 YRS (FLUCELVAX) Unknown Completed [facility] Pneumococcal 20 Conjugate, PCV20 (Prevnar 20) Unknown Completed [facility] SARS-COV-2 COVID-19 PFIZER VACCINE Unknown Completed [facility] Pneumococcal Polysaccharide, PPSV23 (PNEUMOVAX) Unknown Completed [facility] Influenza Virus Vaccine Quad .5 mL IM 6+ MO (FLUZONE/FLULAVAL/F LUARIX) Unknown Completed [facility] Influenza Virus Vaccine Quad IM, Preserv and ABX Free 6 MO-64 YRS (FLUCELVAX) Unknown Completed [facility] Pneumococcal 20 Conjugate, PCV20 (Prevnar 20) Unknown Completed [facility] Pneumococcal Polysaccharide, PPSV23 (PNEUMOVAX) Unknown Completed [facility] Influenza Virus Vaccine Quad .5 mL IM 6+ MO (FLUZONE/FLULAVAL/F LUARIX) Unknown Completed [facility] Influenza Virus Vaccine Quad IM, Preserv and ABX Free 6 MO-64 YRS (FLUCELVAX) Unknown Completed [facility] Pneumococcal 20 Conjugate, PCV20 (Prevnar 20) Unknown Completed [facility] SARS-COV-2 COVID-19 PFIZER VACCINE Unknown Completed [facility] SARS-COV-2 COVID-19 PFIZER VACCINE Unknown Completed [facility] Pneumococcal Polysaccharide, PPSV23 (PNEUMOVAX) Unknown Completed [facility] Influenza Virus Vaccine Quad .5 mL IM 6+ MO (FLUZONE/FLULAVAL/F LUARIX) Unknown Completed [facility] Influenza Virus Vaccine Quad IM, Preserv and ABX Free 6 MO-64 YRS (FLUCELVAX) Unknown Completed [facility] Pneumococcal 20 Conjugate, PCV20 (Prevnar 20) Unknown Completed [facility] SARS-COV-2 COVID-19 PFIZER VACCINE Unknown Completed [facility] Pneumococcal Polysaccharide, PPSV23 (PNEUMOVAX) Unknown Completed [facility] Influenza Virus Vaccine Quad .5 mL IM 6+ MO (FLUZONE/FLULAVAL/F LUARIX) Unknown Completed [facility] Influenza Virus Vaccine Quad IM, Preserv and ABX Free 6 MO-64 YRS (FLUCELVAX) Unknown Completed [facility] Pneumococcal 20 Conjugate, PCV20 (Prevnar 20) Unknown Completed [facility] SARS-COV-2 COVID-19 PFIZER VACCINE Unknown Completed [facility] Pneumococcal Polysaccharide, PPSV23 (PNEUMOVAX) Unknown Completed [facility] Influenza Virus Vaccine Quad .5 mL IM 6+ MO (FLUZONE/FLULAVAL/F LUARIX) Unknown Completed [facility] Influenza Virus Vaccine Quad IM, Preserv and ABX Free 6 MO-64 YRS (FLUCELVAX) Unknown Completed [facility] Pneumococcal 20 Conjugate, PCV20 (Prevnar 20) Unknown Completed [facility] SARS-COV-2 COVID-19 PFIZER VACCINE Unknown Completed [facility] Pneumococcal Polysaccharide, PPSV23 (PNEUMOVAX) Unknown Completed [facility] Influenza Virus Vaccine Quad .5 mL IM 6+ MO (FLUZONE/FLULAVAL/F LUARIX) Unknown Completed [facility] Influenza Virus Vaccine Quad IM, Preserv and ABX Free 6 MO-64 YRS (FLUCELVAX) Unknown Completed [facility] Pneumococcal 20 Conjugate, PCV20 (Prevnar 20) Unknown Completed [facility] SARS-COV-2 COVID-19 PFIZER VACCINE Unknown Completed [facility] Pneumococcal Polysaccharide, PPSV23 (PNEUMOVAX) Unknown Completed [facility] Influenza Virus Vaccine Quad .5 mL IM 6+ MO (FLUZONE/FLULAVAL/F LUARIX) Unknown Completed [facility] Influenza Virus Vaccine Quad IM, Preserv and ABX Free 6 MO-64 YRS (FLUCELVAX) Unknown Completed [facility] Pneumococcal 20 Conjugate, PCV20 (Prevnar 20) Unknown Completed [facility] SARS-COV-2 COVID-19 PFIZER VACCINE Unknown Completed [facility] Pneumococcal Polysaccharide, PPSV23 (PNEUMOVAX) Unknown Completed [facility] Influenza Virus Vaccine Quad .5 mL IM 6+ MO (FLUZONE/FLULAVAL/F LUARIX) Unknown Completed [facility] Influenza Virus Vaccine Quad IM, Preserv and ABX Free 6 MO-64 YRS (FLUCELVAX) Unknown Completed [facility] Pneumococcal 20 Conjugate, PCV20 (Prevnar 20) Unknown Completed [facility] SARS-COV-2 COVID-19 PFIZER VACCINE Unknown Completed [facility] Pneumococcal Polysaccharide, PPSV23 (PNEUMOVAX) Unknown Completed [facility] Influenza Virus Vaccine Quad .5 mL IM 6+ MO (FLUZONE/FLULAVAL/F LUARIX) Unknown Completed [facility] Influenza Virus Vaccine Quad IM, Preserv and ABX Free 6 MO-64 YRS (FLUCELVAX) Unknown Completed [facility] Pneumococcal 20 Conjugate, PCV20 (Prevnar 20) Unknown Completed [facility] SARS-COV-2 COVID-19 PFIZER VACCINE Unknown Completed [facility] Pneumococcal Polysaccharide, PPSV23 (PNEUMOVAX) Unknown Completed [facility] Influenza Virus Vaccine Quad .5 mL IM 6+ MO (FLUZONE/FLULAVAL/F LUARIX) Unknown Completed [facility] Influenza Virus Vaccine Quad IM, Preserv and ABX Free 6 MO-64 YRS (FLUCELVAX) Unknown Completed [facility] Pneumococcal 20 Conjugate, PCV20 (Prevnar 20) Unknown Completed [facility] SARS-COV-2 COVID-19 PFIZER VACCINE Unknown Completed [facility] Pneumococcal Polysaccharide, PPSV23 (PNEUMOVAX) Unknown Completed [facility] Influenza Virus Vaccine Quad .5 mL IM 6+ MO (FLUZONE/FLULAVAL/F LUARIX) Unknown Completed [facility] Influenza Virus Vaccine Quad IM, Preserv and ABX Free 6 MO-64 YRS (FLUCELVAX) Unknown Completed [facility] Pneumococcal 20 Conjugate, PCV20 (Prevnar 20) Unknown Completed [facility] SARS-COV-2 COVID-19 PFIZER VACCINE Unknown Completed [facility] Pneumococcal Polysaccharide, PPSV23 (PNEUMOVAX) Unknown Completed [facility] Influenza Virus Vaccine Quad .5 mL IM 6+ MO (FLUZONE/FLULAVAL/F LUARIX) Unknown Completed [facility] Influenza Virus Vaccine Quad IM, Preserv and ABX Free 6 MO-64 YRS (FLUCELVAX) Unknown Completed [facility] Pneumococcal 20 Conjugate, PCV20 (Prevnar 20) Unknown Completed [facility] SARS-COV-2 COVID-19 PFIZER VACCINE Unknown Completed [facility] Pneumococcal Polysaccharide, PPSV23 (PNEUMOVAX) Unknown Completed [facility] Influenza Virus Vaccine Quad .5 mL IM 6+ MO (FLUZONE/FLULAVAL/F LUARIX) Unknown Completed [facility] Influenza Virus Vaccine Quad IM, Preserv and ABX Free 6 MO-64 YRS (FLUCELVAX) Unknown Completed [facility] Pneumococcal 20 Conjugate, PCV20 (Prevnar 20) Unknown Completed [facility] SARS-COV-2 COVID-19 PFIZER VACCINE Unknown Completed [facility] Pneumococcal Polysaccharide, PPSV23 (PNEUMOVAX) Unknown Completed [facility] Influenza Virus Vaccine Quad .5 mL IM 6+ MO (FLUZONE/FLULAVAL/F LUARIX) Unknown Completed [facility] Influenza Virus Vaccine Quad IM, Preserv and ABX Free 6 MO-64 YRS (FLUCELVAX) Unknown Completed [facility] Pneumococcal 20 Conjugate, PCV20 (Prevnar 20) Unknown Completed [facility] SARS-COV-2 COVID-19 PFIZER VACCINE Unknown Completed [facility] Pneumococcal Polysaccharide, PPSV23 (PNEUMOVAX) Unknown Completed [facility] Influenza Virus Vaccine Quad .5 mL IM 6+ MO (FLUZONE/FLULAVAL/F LUARIX) Unknown Completed [facility] Influenza Virus Vaccine Quad IM, Preserv and ABX Free 6 MO-64 YRS (FLUCELVAX) Unknown Completed [facility] Pneumococcal 20 Conjugate, PCV20 (Prevnar 20) Unknown Completed [facility] SARS-COV-2 COVID-19 PFIZER VACCINE Unknown Completed [facility] Pneumococcal Polysaccharide, PPSV23 (PNEUMOVAX) Unknown Completed [facility] Influenza Virus Vaccine Quad .5 mL IM 6+ MO (FLUZONE/FLULAVAL/F LUARIX) Unknown Completed [facility] Influenza Virus Vaccine Quad IM, Preserv and ABX Free 6 MO-64 YRS (FLUCELVAX) Unknown Completed [facility] Pneumococcal 20 Conjugate, PCV20 (Prevnar 20) Unknown Completed [facility] SARS-COV-2 COVID-19 PFIZER VACCINE Unknown Completed [facility] Pneumococcal Polysaccharide, PPSV23 (PNEUMOVAX) Unknown Completed [facility] Influenza Virus Vaccine Quad .5 mL IM 6+ MO (FLUZONE/FLULAVAL/F LUARIX) Unknown Completed [facility] Influenza Virus Vaccine Quad IM, Preserv and ABX Free 6 MO-64 YRS (FLUCELVAX) Unknown Completed [facility] Pneumococcal 20 Conjugate, PCV20 (Prevnar 20) Unknown Completed [facility] SARS-COV-2 COVID-19 PFIZER VACCINE Unknown Completed [facility] Pneumococcal Polysaccharide, PPSV23 (PNEUMOVAX) Unknown Completed [facility] Influenza Virus Vaccine Quad .5 mL IM 6+ MO (FLUZONE/FLULAVAL/F LUARIX) Unknown Completed [facility] Influenza Virus Vaccine Quad IM, Preserv and ABX Free 6 MO-64 YRS (FLUCELVAX) Unknown Completed [facility] Pneumococcal 20 Conjugate, PCV20 (Prevnar 20) Unknown Completed [facility] Pneumococcal Polysaccharide, PPSV23 (PNEUMOVAX) Unknown Completed [facility] Influenza Virus Vaccine Quad .5 mL IM 6+ MO (FLUZONE/FLULAVAL/F LUARIX) Unknown Completed [facility] Influenza Virus Vaccine Quad IM, Preserv and ABX Free 6 MO-64 YRS (FLUCELVAX) Unknown Completed [facility] Pneumococcal 20 Conjugate, PCV20 (Prevnar 20) Unknown Completed [facility] SARS-COV-2 COVID-19 PFIZER VACCINE Unknown Completed [facility] SARS-COV-2 COVID-19 PFIZER VACCINE Unknown Completed [facility] Pneumococcal Polysaccharide, PPSV23 (PNEUMOVAX) Unknown Completed [facility] Influenza Virus Vaccine Quad .5 mL IM 6+ MO (FLUZONE/FLULAVAL/F LUARIX) Unknown Completed [facility] Influenza Virus Vaccine Quad IM, Preserv and ABX Free 6 MO-64 YRS (FLUCELVAX) Unknown Completed [facility] Pneumococcal 20 Conjugate, PCV20 (Prevnar 20) Unknown Completed [facility] SARS-COV-2 COVID-19 PFIZER VACCINE Unknown Completed [facility] Pneumococcal Polysaccharide, PPSV23 (PNEUMOVAX) Unknown Completed [facility] Influenza Virus Vaccine Quad .5 mL IM 6+ MO (FLUZONE/FLULAVAL/F LUARIX) Unknown Completed [facility] Influenza Virus Vaccine Quad IM, Preserv and ABX Free 6 MO-64 YRS (FLUCELVAX) Unknown Completed [facility] Pneumococcal 20 Conjugate, PCV20 (Prevnar 20) Unknown Completed [facility] SARS-COV-2 COVID-19 PFIZER VACCINE Unknown Completed [facility] Pneumococcal Polysaccharide, PPSV23 (PNEUMOVAX) Unknown Completed [facility] Influenza Virus Vaccine Quad .5 mL IM 6+ MO (FLUZONE/FLULAVAL/F LUARIX) Unknown Completed [facility] Influenza Virus Vaccine Quad IM, Preserv and ABX Free 6 MO-64 YRS (FLUCELVAX) Unknown Completed [facility] Pneumococcal 20 Conjugate, PCV20 (Prevnar 20) Unknown Completed [facility] SARS-COV-2 COVID-19 PFIZER VACCINE Unknown Completed [facility] Pneumococcal Polysaccharide, PPSV23 (PNEUMOVAX) Unknown Completed [facility] Influenza Virus Vaccine Quad .5 mL IM 6+ MO (FLUZONE/FLULAVAL/F LUARIX) Unknown Completed [facility] Influenza Virus Vaccine Quad IM, Preserv and ABX Free 6 MO-64 YRS (FLUCELVAX) Unknown Completed [facility] Pneumococcal 20 Conjugate, PCV20 (Prevnar 20) Unknown Completed [facility] SARS-COV-2 COVID-19 PFIZER VACCINE Unknown Completed [facility] Pneumococcal Polysaccharide, PPSV23 (PNEUMOVAX) Unknown Completed [facility] Influenza Virus Vaccine Quad .5 mL IM 6+ MO (FLUZONE/FLULAVAL/F LUARIX) Unknown Completed [facility] Influenza Virus Vaccine Quad IM, Preserv and ABX Free 6 MO-64 YRS (FLUCELVAX) Unknown Completed [facility] Pneumococcal 20 Conjugate, PCV20 (Prevnar 20) Unknown Completed [facility] SARS-COV-2 COVID-19 PFIZER VACCINE Unknown Completed [facility] Pneumococcal Polysaccharide, PPSV23 (PNEUMOVAX) Unknown Completed [facility] Influenza Virus Vaccine Quad .5 mL IM 6+ MO (FLUZONE/FLULAVAL/F LUARIX) Unknown Completed [facility] Influenza Virus Vaccine Quad IM, Preserv and ABX Free 6 MO-64 YRS (FLUCELVAX) Unknown Completed [facility] Pneumococcal 20 Conjugate, PCV20 (Prevnar 20) Unknown Completed [facility] SARS-COV-2 COVID-19 PFIZER VACCINE Unknown Completed [facility] Pneumococcal Polysaccharide, PPSV23 (PNEUMOVAX) Unknown Completed [facility] Influenza Virus Vaccine Quad .5 mL IM 6+ MO (FLUZONE/FLULAVAL/F LUARIX) Unknown Completed [facility] Influenza Virus Vaccine Quad IM, Preserv and ABX Free 6 MO-64 YRS (FLUCELVAX) Unknown Completed [facility] Pneumococcal 20 Conjugate, PCV20 (Prevnar 20) Unknown Completed [facility] SARS-COV-2 COVID-19 PFIZER VACCINE Unknown Completed [facility] Pneumococcal Polysaccharide, PPSV23 (PNEUMOVAX) Unknown Completed [facility] Influenza Virus Vaccine Quad .5 mL IM 6+ MO (FLUZONE/FLULAVAL/F LUARIX) Unknown Completed [facility] Influenza Virus Vaccine Quad IM, Preserv and ABX Free 6 MO-64 YRS (FLUCELVAX) Unknown Completed [facility] Pneumococcal 20 Conjugate, PCV20 (Prevnar 20) Unknown Completed [facility] SARS-COV-2 COVID-19 PFIZER VACCINE Unknown Completed [facility] Pneumococcal Polysaccharide, PPSV23 (PNEUMOVAX) Unknown Completed [facility] Influenza Virus Vaccine Quad .5 mL IM 6+ MO (FLUZONE/FLULAVAL/F LUARIX) Unknown Completed [facility] Influenza Virus Vaccine Quad IM, Preserv and ABX Free 6 MO-64 YRS (FLUCELVAX) Unknown Completed [facility] Pneumococcal 20 Conjugate, PCV20 (Prevnar 20) Unknown Completed [facility] SARS-COV-2 COVID-19 PFIZER VACCINE Unknown Completed [facility] Pneumococcal Polysaccharide, PPSV23 (PNEUMOVAX) Unknown Completed [facility] Influenza Virus Vaccine Quad .5 mL IM 6+ MO (FLUZONE/FLULAVAL/F LUARIX) Unknown Completed [facility] Influenza Virus Vaccine Quad IM, Preserv and ABX Free 6 MO-64 YRS (FLUCELVAX) Unknown Completed [facility] Pneumococcal 20 Conjugate, PCV20 (Prevnar 20) Unknown Completed [facility] SARS-COV-2 COVID-19 PFIZER VACCINE Unknown Completed [facility] Pneumococcal Polysaccharide, PPSV23 (PNEUMOVAX) Unknown Completed [facility] Influenza Virus Vaccine Quad .5 mL IM 6+ MO (FLUZONE/FLULAVAL/F LUARIX) Unknown Completed [facility] Influenza Virus Vaccine Quad IM, Preserv and ABX Free 6 MO-64 YRS (FLUCELVAX) Unknown Completed [facility] Pneumococcal 20 Conjugate, PCV20 (Prevnar 20) Unknown Completed [facility] SARS-COV-2 COVID-19 PFIZER VACCINE Unknown Completed [facility] Pneumococcal Polysaccharide, PPSV23 (PNEUMOVAX) Unknown Completed [facility] Influenza Virus Vaccine Quad .5 mL IM 6+ MO (FLUZONE/FLULAVAL/F LUARIX) Unknown Completed [facility] Influenza Virus Vaccine Quad IM, Preserv and ABX Free 6 MO-64 YRS (FLUCELVAX) Unknown Completed [facility] Pneumococcal 20 Conjugate, PCV20 (Prevnar 20) Unknown Completed [facility] Vital Signs Vital Name Observation Time Observation Value Comments S ource Systolic blood pressure 2023-10-23 19:15:00 124 mm[Hg] [facility] Diastolic blood pressure 2023-10-23 19:15:00 69 mm[Hg] [facility] Heart rate 2023-10-23 19:15:00 98 /min [facility] Body temperature 2023-10-23 19:15:00 36.61 Leigh [facility] Body height 2023-10-23 19:15:00 144.8 cm [facility] Body weight 2023-10-23 19:15:00 81.647 kg verbal given [facility] BMI 2023-10-23 19:15:00 38.95 kg/m2 [facility] Oxygen saturation in Arterial blood by Pulse oximetry 2023-10-23 19:15:00 100 /min [facility] Systolic blood pressure 2023-03-27 16:50:00 121 mm[Hg] [facility] Diastolic blood pressure 2023-03-27 16:50:00 76 mm[Hg] [facility] Heart rate 2023-03-27 16:50:00 101 /min [facility] Body height 2023-03-27 16:50:00 144.8 cm [facility] Body weight 2023-03-27 16:50:00 81.647 kg [facility] BMI 2023-03-27 16:50:00 38.95 kg/m2 [facility] Oxygen saturation in Arterial blood by Pulse oximetry 2023-03-27 16:50:00 97 /min [facility] Systolic blood pressure 2023-03-26 20:25:00 123 mm[Hg] [facility] Diastolic blood pressure 2023-03-26 20:25:00 73 mm[Hg] [facility] Heart rate 2023-03-26 20:25:00 93 /min [facility] Body temperature 2023-03-26 20:25:00 36.67 Leigh [facility] Respiratory rate 2023-03-26 20:25:00 18 /min [facility] Oxygen saturation in Arterial blood by Pulse oximetry 2023-03-26 20:25:00 98 /min [facility] Body weight 2023-03-26 08:12:00 90.992 kg [facility] BMI 2023-03-26 08:12:00 43.41 kg/m2 [facility] Body height 2023-03-19 02:44:00 144.8 cm [facility] Systolic blood pressure 2023-03-20 17:45:00 132 mm[Hg] [facility] Diastolic blood pressure 2023-03-20 17:45:00 97 mm[Hg] [facility] Heart rate 2023-03-20 17:45:00 104 /min [facility] Respiratory rate 2023-03-20 17:45:00 19 /min [facility] Oxygen saturation in Arterial blood by Pulse oximetry 2023-03-20 17:45:00 99 /min [facility] Body temperature 2023-03-20 17:39:00 36.11 Leigh [facility] Body weight 2023-03-20 08:41:00 81.92 kg [facility] BMI 2023-03-20 08:41:00 38.87 kg/m2 [facility] Body height 2023-03-19 02:44:00 144.8 cm [facility] Body height 2023-02-03 14:35:00 144.8 cm [facility] Body weight 2023-02-03 14:35:00 82.146 kg [facility] BMI 2023-02-03 14:35:00 39.18 kg/m2 [facility] Body height 2023-01-02 19:10:00 144.8 cm [facility] Body weight 2023-01-02 19:10:00 82.146 kg [facility] BMI 2023-01-02 19:10:00 39.18 kg/m2 [facility] Systolic blood pressure 2022-12-25 17:07:00 141 mm[Hg] [facility] Diastolic blood pressure 2022-12-25 17:07:00 79 mm[Hg] [facility] Heart rate 2022-12-25 17:07:00 94 /min [facility] Body temperature 2022-12-25 17:07:00 36.72 Leigh [facility] Respiratory rate 2022-12-25 17:07:00 18 /min [facility] Oxygen saturation in Arterial blood by Pulse oximetry 2022-12-25 17:07:00 95 /min [facility] Body weight 2022-12-24 09:04:00 82.146 kg [facility] BMI 2022-12-24 09:04:00 39.19 kg/m2 [facility] Body height 2022-12-24 03:00:00 144.8 cm [facility] Systolic blood pressure 2022-12-19 15:52:00 137 mm[Hg] [facility] Diastolic blood pressure 2022-12-19 15:52:00 79 mm[Hg] [facility] Heart rate 2022-12-19 15:51:00 82 /min [facility] Body temperature 2022-12-19 15:51:00 36.89 Leigh [facility] Respiratory rate 2022-12-19 15:51:00 18 /min [facility] Body height 2022-12-19 15:51:00 144.8 cm [facility] Oxygen saturation in Arterial blood by Pulse oximetry 2022-12-19 15:51:00 98 /min [facility] Respiratory rate 2022-12-10 22:45:00 18 /min [facility] Systolic blood pressure 2022-12-10 22:15:00 162 mm[Hg] [facility] Diastolic blood pressure 2022-12-10 22:15:00 80 mm[Hg] [facility] Heart rate 2022-12-10 22:15:00 87 /min [facility] Oxygen saturation in Arterial blood by Pulse oximetry 2022-12-10 22:15:00 99 /min [facility] Body temperature 2022-12-10 19:23:00 36.61 Leigh [facility] Body height 2022-12-10 19:23:00 144.8 cm [facility] Body weight 2022-12-10 19:23:00 81.647 kg [facility] BMI 2022-12-10 19:23:00 38.95 kg/m2 [facility] Systolic blood pressure 2022-12-05 03:34:00 159 mm[Hg] [facility] Diastolic blood pressure 2022-12-05 03:34:00 66 mm[Hg] [facility] Heart rate 2022-12-05 03:34:00 84 /min [facility] Body temperature 2022-12-05 03:34:00 37.22 Leigh [facility] Respiratory rate 2022-12-05 03:34:00 20 /min [facility] Body height 2022-12-05 03:34:00 144.8 cm [facility] Body weight 2022-12-05 03:34:00 81.647 kg [facility] BMI 2022-12-05 03:34:00 38.95 kg/m2 [facility] Oxygen saturation in Arterial blood by Pulse oximetry 2022-12-05 03:34:00 99 /min [facility] Systolic blood pressure 2022-11-18 19:46:00 151 mm[Hg] [facility] Diastolic blood pressure 2022-11-18 19:46:00 83 mm[Hg] [facility] Heart rate 2022-11-18 19:46:00 92 /min [facility] Body temperature 2022-11-18 19:46:00 37.11 Leigh [facility] Respiratory rate 2022-11-18 19:46:00 16 /min [facility] Body weight 2022-11-18 19:46:00 82.555 kg [facility] BMI 2022-11-18 19:46:00 39.38 kg/m2 [facility] Oxygen saturation in Arterial blood by Pulse oximetry 2022-11-18 19:46:00 99 /min [facility] Systolic blood pressure 2022-09-18 21:06:00 131 mm[Hg] [facility] Diastolic blood pressure 2022-09-18 21:06:00 80 mm[Hg] [facility] Heart rate 2022-09-18 21:06:00 98 /min [facility] Body temperature 2022-09-18 21:06:00 36.39 Legih [facility] Respiratory rate 2022-09-18 21:06:00 18 /min [facility] Body height 2022-09-18 21:06:00 144.8 cm [facility] Body weight 2022-09-18 21:06:00 87.091 kg [facility] BMI 2022-09-18 21:06:00 41.55 kg/m2 [facility] Oxygen saturation in Arterial blood by Pulse oximetry 2022-09-18 21:06:00 98 /min [facility] Systolic blood pressure 2022-07-10 20:52:00 147 mm[Hg] [facility] Diastolic blood pressure 2022-07-10 20:52:00 82 mm[Hg] [facility] Heart rate 2022-07-10 20:51:00 110 /min [facility] Body temperature 2022-07-10 20:51:00 36.72 Leigh [facility] Respiratory rate 2022-07-10 20:51:00 17 /min [facility] Body height 2022-07-10 20:51:00 144.8 cm [facility] Body weight 2022-07-10 20:51:00 91.173 kg [facility] BMI 2022-07-10 20:51:00 43.50 kg/m2 [facility] Oxygen saturation in Arterial blood by Pulse oximetry 2022-07-10 20:51:00 96 /min [facility] Systolic blood pressure 2022-05-02 19:33:00 166 mm[Hg] [facility] Diastolic blood pressure 2022-05-02 19:33:00 84 mm[Hg] [facility] Heart rate 2022-05-02 19:33:00 99 /min [facility] Respiratory rate 2022-05-02 19:33:00 18 /min [facility] Oxygen saturation in Arterial blood by Pulse oximetry 2022-05-02 19:33:00 99 /min [facility] Body temperature 2022-05-02 19:31:00 36.39 Leigh [facility] Body weight 2022-05-02 19:31:00 92.534 kg per pt [facility] BMI 2022-05-02 19:31:00 44.15 kg/m2 [facility] Systolic blood pressure 2021-11-08 19:49:00 121 mm[Hg] [facility] Diastolic blood pressure 2021-11-08 19:49:00 74 mm[Hg] [facility] Heart rate 2021-11-08 19:49:00 105 /min [facility] Respiratory rate 2021-11-08 19:49:00 18 /min [facility] Body height 2021-11-08 19:49:00 144.8 cm [facility] Body weight 2021-11-08 19:49:00 100.835 kg [facility] BMI 2021-11-08 19:49:00 48.11 kg/m2 [facility] Oxygen saturation in Arterial blood by Pulse oximetry 2021-11-08 19:49:00 94 /min [facility] Systolic blood pressure 2021-11-08 19:49:00 121 mm[Hg] [facility] Diastolic blood pressure 2021-11-08 19:49:00 74 mm[Hg] [facility] Heart rate 2021-11-08 19:49:00 105 /min [facility] Respiratory rate 2021-11-08 19:49:00 18 /min [facility] Body height 2021-11-08 19:49:00 144.8 cm [facility] Body weight 2021-11-08 19:49:00 100.835 kg [facility] BMI 2021-11-08 19:49:00 48.11 kg/m2 [facility] Oxygen saturation in Arterial blood by Pulse oximetry 2021-11-08 19:49:00 94 /min [facility] Procedures Procedure Date / Time Performed Performing Clinician Source DME/SUPPLY JUSTIFICATION 2023-09-29 05:01:00 Doc tor Unassigned, [place] [facility] DME/SUPPLY JUSTIFICATION 2023-09-16 06:01:00 Doc tor Unassigned, [place] [facility] INSURANCE CORRESPONDENCE 2023-07-01 06:01:00 Doc tor Unassigned, [place] [facility] DME/SUPPLY JUSTIFICATION 2023-06-09 06:01:00 Doc tor Unassigned, [place] [facility] DME/SUPPLY JUSTIFICATION 2023-04-21 05:01:00 Doc tor Unassigned, [place] [facility] PHYSICIAN CERTIFICATION STATEMENT 2023-04-08 05:01:00 Doctor Unassigned, [place] [facility] POCT GLUCOSE (AUTOMATED) 2023-03-26 16:45:00 Mehnaz Jones [facility] POCT GLUCOSE (AUTOMATED) 2023-03-26 12:46:00 Mehnaz Jones [facility] POCT GLUCOSE (AUTOMATED) 2023-03-26 11:13:00 Mehnaz Jones [facility] POCT GLUCOSE (AUTOMATED) 2023-03-26 08:13:00 Mehnaz Jones [facility] POCT GLUCOSE (AUTOMATED) 2023-03-26 04:50:00 Mehnaz Jones [facility] POCT GLUCOSE (AUTOMATED) 2023-03-26 01:18:00 Mehnaz Jones [facility] POCT GLUCOSE (AUTOMATED) 2023-03-25 21:43:00 Mehnaz Jones [facility] POCT GLUCOSE (AUTOMATED) 2023-03-25 16:44:00 Mehnaz Jones [facility] XR KUB 2023-03-25 14:55:00 Reba Mccoy [facility] POCT GLUCOSE (AUTOMATED) 2023-03-25 12:50:00 Mehnaz Jones [facility] POCT GLUCOSE (AUTOMATED) 2023-03-25 01:04:00 Mehnaz Jones [facility] POCT GLUCOSE (AUTOMATED) 2023-03-24 21:38:00 Mehnaz Jones [facility] POCT GLUCOSE (AUTOMATED) 2023-03-24 16:49:00 Mehnaz Jones [facility] POCT GLUCOSE (AUTOMATED) 2023-03-24 12:39:00 Mehnaz Jones [facility] POCT GLUCOSE (AUTOMATED) 2023-03-24 01:20:00 Mehnaz Jones [facility] POCT GLUCOSE (AUTOMATED) 2023-03-23 21:48:00 Mehnaz Jones [facility] POCT GLUCOSE (AUTOMATED) 2023-03-23 16:41:00 Mehnaz Jones [facility] POCT GLUCOSE (AUTOMATED) 2023-03-23 12:41:00 Mehnaz Jones [facility] BASIC METABOLIC PANEL (NA, K, CL, CO2, GLUCOSE, BUN, CREATININE, CA) 2023-03-23 08:53:00 Erma Wright [facility] CBC WITH DIFF 2023-03-23 08:53:00 Erma Wright [facility] POCT GLUCOSE (AUTOMATED) 2023-03-23 02:05:00 Mehnaz Jones [facility] POCT GLUCOSE (AUTOMATED) 2023-03-22 21:57:00 Mehnaz Jones [facility] POCT GLUCOSE (AUTOMATED) 2023-03-22 16:33:00 Mehnaz Jones [facility] POCT GLUCOSE (AUTOMATED) 2023-03-22 [facility] (NA, K, CL, CO2, GLUCOSE, BUN, CREATININE, CA) 2023-03-22 09:33:00 Ariadna Mccoy [facility] CBC WITH DIFF 2023-03-22 09:33:00 Ariadna Mccoy [facility] POCT GLUCOSE (AUTOMATED) 2023-03-22 01:05[facility]00 [facility] ([facility]OMATED) 2023-03-22 01:05:00 Mehnaz Jones [facility] CBC WITH DIFF 2023-03-21 22:16:00 Foreign [facility] CBC WITH DIFF 2023-03-21 22:16:00 Foreign [facility] POCT GLUCOSE (AUTOMATED) 2023-03-21 21:59:00 Mehnaz Jones [facility] POCT GLUCOSE (AUTOMATED) 2023-03-21 21:59:00 [facility] POCT GLUCOSE (AUTOMATED) 2023-03-21 16:42:00 Mehnaz Jones [facility] POCT GLUCOSE (AUTOMATED) 2023-03-21 16:42:00 Mehnaz Jones [facility] POCT GLUCOSE (AUTOMATED) 2023-03-21 12:53:00 Mehnaz Jones [facility] POCT GLUCOSE (AUTOMATED) 2023-03-21 12:53:00 Mehnaz Jones [facility] POCT GLUCOSE (AUTOMATED) 2023-03-21 01:21:00 [facility] POCT GLUCOSE (AUTOMATED) 2023-03-21 01:21:00 Mehnaz Jones [facility] VANCOMYCIN TROUGH 2023-03-21 00:36:00 Rosi Jones [facility] VANCOMYCIN TROUGH 2023-03-21 00:36:00 Rosi Jones [facility] POCT GLUCOSE (AUTOMATED) 2023-03-20 21:44:00 [facility] POCT GLUCOSE (AUTOMATED) 2023-03-20 21:44:00 Mehnaz Jones [facility] POCT GLUCOSE (AUTOMATED) 2023-03-20 18:28:00 [facility] POCT GLUCOSE (AUTOMATED) 2023-03-20 18:28:00 Mehnaz Jones [facility] INCISION AND DRAINAGE LOWER EXTREMITY 2023-03-20 16:52:00 Foreign [facility] INCISION AND DRAINAGE LOWER EXTREMITY 2023-03-20 16:52:00 Foreign [facility] POCT GLUCOSE (AUTOMATED) 2023-03-20 13:05:00 [facility] POCT GLUCOSE (AUTOMATED) 2023-03-20 13:05:00 Mehnaz Jones [facility] BASIC METABOLIC PANEL (NA, K, CL, CO2, GLUCOSE, BUN, CREATININE, CA) 2023-03-20 09:40:00 Erma Wright [facility] CBC WITH DIFF 2023-03-20 09:40:00 Erma Wright [facility] BASIC METABOLIC PANEL (NA, K, CL, CO2, GLUCOSE, BUN, CREATININE, CA) 2023-03-20 09:40:00 Erma Wright [facility] CBC WITH DIFF 2023-03-20 09:40:00 Kyle [facility] DME/SUPPLY JUSTIFICATION 2023-03-20 05:01:00 Doc tor Unassigned, [place] [facility] POCT GLUCOSE (AUTOMATED) 2023-03-20 01:24:00 Mehnaz Jones [facility] POCT GLUCOSE (AUTOMATED) 2023-03-20 01:24:00 [facility] POCT GLUCOSE (AUTOMATED) 2023-03-19 21:48:00 Mehnaz Jones [facility] POCT GLUCOSE (AUTOMATED) 2023-03-19 21:48:00 [facility] MR FOOT LEFT WO CONTRAST 2023-03-19 20:21:00 Denisha [facility] MR FOOT LEFT WO CONTRAST 2023-03-19 20:21:00 Denisha Wilkinson [facility] URINALYSIS 2023-03-19 20:05:00 Demarco [facility] ASPIRATE OR ABSCESS CULTURE(AEROBIC/ANAEROBIC ) 2023-03-19 20:05:00 Foreign [facility] WOUND/ASPIRATE OR ABSCESS CULTURE 2023-03-19 20:05:00 Foreign [facility] URINALYSIS 2023-03-19 20:05:00 Demarco [facility] ASPIRATE OR ABSCESS CULTURE(AEROBIC/ANAEROBIC ) 2023-03-19 20:05:00 Foreign [facility] WOUND/ASPIRATE OR ABSCESS CULTURE 2023-03-19 20:05:00 Foreign [facility] DUPLEX ARTERIAL LEG LEFT - BY VASCULAR LAB 2023-03-19 19:00:00 Foreign [facility] DUPLEX ARTERIAL LEG LEFT - BY VASCULAR LAB 2023-03-19 19:00:00 Foreign [facility] POCT GLUCOSE (AUTOMATED) 2023-03-19 16:36:00 Mehnaz Jones [facility] POCT GLUCOSE (AUTOMATED) 2023-03-19 16:36:00 Mehnaz Jones [facility] BASIC METABOLIC PANEL (NA, K, CL, CO2, GLUCOSE, BUN, CREATININE, CA) 2023-03-19 15:23:00 Demarco [facility] CBC WITH DIFF 2023-03-19 15:23:00 Demarco [facility] BASIC METABOLIC PANEL (NA, K, CL, CO2, GLUCOSE, BUN, CREATININE, CA) 2023-03-19 15:23:00 Demarco [facility] CBC WITH DIFF 2023-03-19 15:23:00 [facility] POCT GLUCOSE (AUTOMATED) 2023-03-19 12:33:00 Mehnaz Jones [facility] POCT GLUCOSE (AUTOMATED) 2023-03-19 12:33:00 Mehnaz Jones [facility] MRSA / MSSA SCREEN BY MABLE ERIC 2023-03-19 08:23:00 Rosi Jones [facility] MRSA / MSSA SCREEN BY MABLE ER[facility] 2023-03-19 08:23:00 Rosi Jones [facility] POCT GLUCOSE (AUTOMATED) 2023-03-19 03:27:00 Mehnaz Jones [facility] POCT GLUCOSE (AUTOMATED) 2023-03-19 03:27:00 Mehnaz Jones [facility] XR FOOT 3+ VW LEFT 2023-03-18 23:31:21 Sarah Goodman [facility] XR FOOT 3+ VW LEFT 2023-03-18 23:31:21 Sarah Goodman [facility] BLOOD CULTURE SCREEN 2023-03-18 23:18:00 Sarah Goodman [facility] COMP. METABOLIC PANEL (95668) 2023-03-18 23:18:00 Sarah Goodman [facility] CBC WITH DIFF 2023-03-18 23:18:00 Sarah Goodman [facility] GLYCOSYLATED HEMOGLOBIN (A1C) 2023-03-18 23:18:00 Rosi Jones [facility] LACTIC ACID WHOLE BLOOD 2023-03-18 23:18:00 Sarah Goodman [facility] BLOOD CULTURE SCREEN 2023-03-18 23:18:00 Sarah Goodman [facility] COMP. METABOLIC PANEL (94239) 2023-03-18 23:18:00 Sarah Goodman [facility] CBC WITH DIFF 2023-03-18 23:18:00 Sarah Goodman [facility] GLYCOSYLATED HEMOGLOBIN (A1C) 2023-03-18 23:18:00 Rosi Jones [facility] LACTIC ACID WHOLE BLOOD 2023-03-18 23:18:00 Sarah Goodman [facility] CONSENT/REFUSAL FOR DIAGNOSIS AND TREATMENT 2023-03-18 21:51:06 Doctor Unassigned, [place] [facility] CONSENT/REFUSAL FOR DIAGNOSIS AND TREATMENT 2023-03-18 21:51:06 Doctor Unassigned, [place] [facility] POCT GLUCOSE (AUTOMATED) 2022-12-25 17:10:00 Samantha Reynolds [facility] POCT GLUCOSE (AUTOMATED) 2022-12-25 13:41:00 Samantha Reynolds [facility] POCT GLUCOSE (AUTOMATED) 2022-12-25 02:04:00 Samantha Reynolds [facility] POCT GLUCOSE (AUTOMATED) 2022-12-24 22:12:00 Samantha Reynolds [facility] POCT GLUCOSE (AUTOMATED) 2022-12-24 17:58:00 Mehnaz Luque [facility] MR STROKE BRAIN WO CONTRAST 2022-12-24 15:50:14 Gael [facility] TRANSTHORACIC ECHO (TTE) COMPLETE W/ CONTRAST 2022-12-24 14:00:00 Gael [facility] POCT GLUCOSE (AUTOMATED) 2022-12-24 13:06:00 Mehnaz Luque [facility] BASIC METABOLIC PANEL (NA, K, CL, CO2, GLUCOSE, BUN, CREATININE, CA) 2022-12-24 10:25:00 Gael [facility] LIPID PANEL (08464)(TOTAL CHOLESTEROL, TRIGLYCERIDES, HDL) 2022-12-24 10:25:00 Gael [facility] POCT GLUCOSE (AUTOMATED) 2022-12-24 04:13:00 Mehnaz Luque [facility] HB ECG ROUTINE & RHYTHM STRIP 2022-12-24 02:19:50 Gael [facility] POCT GLUCOSE (AUTOMATED) 2022-12-24 02:08:00 Mehnaz Luque [facility] POCT GLUCOSE (AUTOMATED) 2022-12-24 00:19:00 Mehnaz Luque [facility] POCT GLUCOSE (AUTOMATED) 2022-12-23 23:37:00 Mehnaz Luque [facility] URINE CULTURE 2022-12-23 22:40:00 Jose Luque [facility] URINALYSIS 2022-12-23 21:50:00 Jose Luque [facility] URINE DRUG (IMMUNOASSAY) - COMPREHENSIVE DRUG SCREEN W/O REFLEX 2022-12-23 21:50:00 Jose Luque [facility] CT HEAD WO CONTRAST 2022-12-23 21:38:13 Percy Luque [facility] XR CHEST 1 VW 2022-12-23 21:34:12 Jose Luque [facility] TROPONIN I 2022-12-23 21:23:00 Jose Luque [facility] COMP. METABOLIC PANEL (87800) 2022-12-23 21:23:00 Jose Luque [facility] ETHANOL 2022-12-23 21:23:00 Jose Luque [facility] CBC WITH DIFF 2022-12-23 21:23:00 Jose Luque [facility] GLYCOSYLATED HEMOGLOBIN (A1C) 2022-12-23 21:23:00 Adolfo Cedeño [facility] PROTHROMBIN TIME / INR 2022-12-23 21:23:00 Adalid Luque [facility] ACTIVATED PARTIAL THRMPLAS ROD 2022-12-23 21:23:00 Jose Luque [facility] N-TERMINAL PRO-BNP 2022-12-23 21:23:00 Jose Luque [facility] HB ECG ROUTINE & RHYTHM STRIP 2022-12-23 21:19:58 Jose Luque [facility] CONSENT/REFUSAL FOR DIAGNOSIS AND TREATMENT 2022-12-23 20:56:49 Doctor Unassigned, [place] [facility] HOSPITAL ADMISSION 2022-12-23 05:01:00 Doctor Un assigned, [place] [facility] PNEUMOCOCCAL 20 CONJUGATE (PREVNAR 20) VACCINE 2022-12-19 16:36:06 Kwadwo Patel [facility] EKG-12 LEAD 2022-12-10 23:13:08 Ayo Joyner [facility] POCT GLUCOSE (AUTOMATED) 2022-12-10 23:03:00 Arash Joyner [facility] POCT GLUCOSE (AUTOMATED) 2022-12-10 22:27:00 Arash Joyner [facility] POCT GLUCOSE (AUTOMATED) 2022-12-10 21:25:00 Arash Joyner [facility] POCT GLUCOSE (AUTOMATED) 2022-12-10 20:53:00 Arash Joyner [facility] CT HEAD WO CONTRAST 2022-12-10 20:04:56 Ayo Joyner [facility] URINE DRUG (IMMUNOASSAY) - COMPREHENSIVE DRUG SCREEN 2022-12-10 19:54:00 Ayo Joyner [facility] URINALYSIS 2022-12-10 19:54:00 Ayo Joyner [facility] COMP. METABOLIC PANEL (01466) 2022-12-10 19:40:00 Ayo Joyner [facility] ETHANOL 2022-12-10 19:40:00 Ayo Joyner [facility] CBC WITH DIFF 2022-12-10 19:40:00 Ayo Joyner [facility] PROTHROMBIN TIME / INR 2022-12-10 19:40:00 Aria Joyner [facility] ACTIVATED PARTIAL THRMPLAS ROD 2022-12-10 19:40:00 Ayo Joyner [facility] CONSENT/REFUSAL FOR DIAGNOSIS AND TREATMENT 2022-12-10 19:14:05 Doctor Unassigned, [place] [facility] ASSIGNMENT OF BENEFITS 2022-12-05 03:46:41 Docto r Unassigned, [place] [facility] CONSENT/REFUSAL FOR DIAGNOSIS AND TREATMENT 2022-12-05 03:28:46 Doctor Unassigned, [place] [facility] GLYCOSYLATED HEMOGLOBIN (A1C) 2022-11-24 17:51:00 Kwadwo Patel [facility] ASSIGNMENT OF BENEFITS 2022-11-18 20:52:28 Docto r Unassigned, [place] [facility] CONSENT/REFUSAL FOR DIAGNOSIS AND TREATMENT 2022-11-18 19:41:41 Doctor Unassigned, [place] [facility] PATIENT FINANCIAL POLICY 2022-09-18 21:02:34 Doctor Unassigned, [place] [facility] SCANNED LAB RESULTS 2022-07-18 06:01:00 Doctor Anna unger, [place] [facility] DIABETES TESTING REPORTS 2022-06-23 06:01:00 Doc aziza Unassigned, [place] [facility] DIABETES TESTING REPORTS 2022-06-02 06:01:00 Doc tor Unassigned, [place] [facility] DIABETES TESTING REPORTS 2022-05-15 05:01:00 Doc zaiza Unassigned, [place] [facility] EXTERNAL PROVIDER RECORDS 2022-05-07 05:01:00 Do ctor Unassigned, [place] [facility] FLU VACC ([id number]), 6 MO-64 YRS, .5ML, IM, QUAD (FLUCELVAX) 2022-05-02 19:32:22 Kwadwo Patel [facility] URINALYSIS 2022-04-17 15:43:00 Sunshine Zhu [facility] PROTEIN CREAT RATIO URINE RANDOM 2022-04-17 15:43:00 Sunshine Zhu [facility] MICROALBUMIN URINE 2022-04-17 15:43:00 Bebe Zhu [facility] CBC WITHOUT DIFF 2022-04-17 14:56:00 [facility] 2022-04-17 14:56:00 Sunshine Zhu [facility] MAGNESIUM 2022-04-17 14:56:00 Sunshine Zhu [facility] BASIC METABOLIC PANEL (NA, K, CL, CO2, GLUCOSE, BUN, CREATININE, CA) 2022-04-17 14:56:00 Sunshine Zhu [facility] GLYCOSYLATED HEMOGLOBIN (A1C) 2022-04-17 14:56:00 Kwadwo Patel [facility] INTACT PTH [employer] 2022-04-17 14:56:00 Sunshine Castro [facility] Encounters Start Date/Time End Date/Time Encounter Type Admission Type Attending Clinicians Care Facility Care Department Encounter ID Source 2021-05-13 12:56:03 Emergency [facility] [id number] [facility] 2024-05-22 00:00:00 2024-05-24 12:40:29 Refill Kwadwo Patel [facility] 1.2.840.114 350.1.13.10 4.2.7.2.686 [id number] [id number] [facility] 2024-05-19 00:00:00 2024-05-19 09:57:47 Refill Corin [facility] 1.2.840.114 350.1.13.10 4.2.7.2.686 [id number] [facility] 2024-05-19 00:00:00 2024-05-19 09:05:42 Refill Kwadwo Patel [facility] 1.2.840.114 350.1.13.10 4.2.7.2.686 [id number] [id number] [facility] 2024-02-25 00:00:00 2024-03-01 10:34:24 Telephone Kwadwo Patel [facility] 1.2.840.114 350.1.13.10 4.2.7.2.686 [id number] [facility] 2024-02-22 00:00:00 2024-02-22 15:16:07 Refill Kwadwo Patel [facility] 1.2.840.114 350.1.13.10 4.2.7.2.686 [id number] 044 [id number] [facility] 2024-02-16 00:00:00 2024-02-17 09:39:35 Refill Kwadwo Patel [facility] 1.2.840.114 350.1.13.10 4.2.7.2.686 [id number] [id number] [facility] 2024-02-10 00:00:00 2024-02-10 15:11:28 Telephone Kwadwo Patel [facility] 1.2.840.114 350.1.13.10 4.2.7.2.686 [id number] 044 [id number] [facility] 2024-02-04 00:00:00 2024-02-04 09:54:51 Telephone Kwadwo Patel [facility] 1.2.840.114 350.1.13.10 4.2.7.2.686 [id number] 044 [id number] [facility] 2024-01-28 00:00:00 2024-01-29 13:03:56 Refill Corin Chan [facility] 1.2.840.114 350.1.13.10 4.2.7.2.686 [id number] 044 [id number] [facility] 2024-01-08 00:00:00 2024-01-08 10:16:23 Refill Kwadwo Patel [facility] 1.2.840.114 350.1.13.10 4.2.7.2.686 [id number] 044 [id number] [facility] 2023-12-29 09:45:00 2023-12-29 09:45:00 Outpatient JANEE WESTFALL [facility] [id number] [facility] 2023-12-24 00:00:00 2023-12-24 14:16:22 Telephone Kwadwo Patel [facility] 1.2.840.114 350.1.13.10 4.2.7.2.686 [id number] 044 [id number] [facility] 2023-11-11 00:00:00 2023-12-24 14:15:47 Refill Kwadwo Patel [facility] 1.2.840.114 350.1.13.10 4.2.7.2.686 [id number] [id number] [facility] 2023-12-21 00:00:00 2023-12-23 12:36:09 Refill Kwadwo Patel [facility] 1.2.840.114 350.1.13.10 4.2.7.2.686 [id number] [id number] [facility] 2023-12-10 10:40:00 2023-12-10 10:40:00 Outpatient R KWADWO PATEL [facility] [id number] [facility] 2023-11-20 15:30:00 2023-11-20 15:30:00 Outpatient R CORIN CHAN [facility] [id number] [facility] 2023-11-20 00:00:00 2023-11-20 14:33:14 Telephone Kwadwo Patel [facility] 1.2.840.114 350.1.13.10 4.2.7.2.686 [id number] 044 [id number] [facility] 2023-10-23 15:00:00 2023-10-23 15:00:00 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, [facility] YulisaSkinny [facility] 1.2.840.114 350.1.13.10 4.2.7.2.686 [id number] [facility] 2023-10-23 14:30:00 2023-10-23 14:33:14 Outpatient R SKINNY LIND OGECHUKWU [facility] [id number] [facility] 2023-10-23 14:30:00 2023-10-23 14:33:14 Office Visit Corin Chan Ogechukwu [facility] 1.2.840.114 350.1.13.10 4.2.7.2.686 [id number] 044 [id number] [facility] 2023-10-23 00:00:00 2023-10-23 00:00:00 Refill Corin Chan [facility] 1.2.840.114 350.1.13.10 4.2.7.2.686 [id number] [id number] [facility] 2023-10-19 00:00:00 2023-10-19 00:00:00 Refill AmandaKwadwo [facility] 1.2.840.114 350.1.13.10 4.2.7.2.686 [id number] 044 [id number] [facility] 2023-09-29 00:00:00 2023-09-29 00:00:00 Orders Only Doctor Unassigned, [place] [facility] 1.2.840.114 350.1.13.10 4.2.7.2.686 [id number] [facility] 2023-09-28 00:00:00 2023-09-28 00:00:00 Telephone EugenioKwadwo gray [facility] 1.2.840.114 350.1.13.10 4.2.7.2.686 [id number] 044 [id number] [facility] 2023-09-28 00:00:00 2023-09-28 00:00:00 Telephone Renémarco aKwadwo [facility] 1.2.840.114 350.1.13.10 4.2.7.2.686 [id number] 044 [id number] [facility] 2023-09-16 00:00:00 2023-09-16 00:00:00 Orders Only Doctor Unassigned, [place] [facility] 1.2.840.114 350.1.13.10 4.2.7.2.686 [id number] [facility] 2023-09-04 08:40:00 2023-09-04 08:40:00 Outpatient R KWADWO PATEL [facility] [id number] [facility] 2023-09-04 08:40:00 2023-09-04 08:40:00 Outpatient R OBI-HARDIK , ALICE OBI-HARDIK , ALICE [facility] [id number] [facility] 2023-08-20 00:00:00 2023-08-20 00:00:00 Refill Kwadwo Patel [facility] 1.840.114 350.1.13.10 4.2.7.2.686 [id number] [facility] 2023-08-19 00:00:00 2023-08-19 00:00:00 Telephone Kwadwo Patel [facility] 1..114 350.1.13.10 4.2.7.2.686 [id number] [facility] 2023-08-18 15:00:00 2023-08-18 15:00:00 Outpatient R ROCIO CORIN [facility] [id number] [facility] 2023-08-18 00:00:00 2023-08-18 00:00:00 Telephone Kwadwo Patel [facility] 1.114 350.1.13.10 4.2.7.2.686 [id number] [id number] [facility] 2023-08-17 00:00:00 2023-08-17 00:00:00 Nurse Triage Ema Biggs [facility] 1..114 350.1.13.10 4.2.7.2.686 [id number] [facility] 2023-08-17 00:00:00 2023-08-17 00:00:00 Telephone Kwadwo Patel [facility] 1.114 350.1.13.10 4.2.7.2.686 [id number] 044 [id number] [facility] 2023-08-13 00:00:00 2023-08-13 00:00:00 Telephone [facility]ad[facility] Patel [facility] 1.2.840.114 350.1.13.10 4.2.7.2.686 [id number] 044 [id number] [facility] 2023-07-14 00:00:00 2023-07-14 00:00:00 Telephone Amanda [facility] 1.2.840.114 350.1.13.10 4.2.7.2.686 [id number] [facility] 2023-07-01 11:20:00 2023-07-01 11:20:00 Outpatient R AMANDA [facility] [id number] [facility] 2023-07-01 00:00:00 2023-07-01 00:00:00 Orders Only Doctor Unassigned, [place] [facility] 1.2840.114 350.1.13.10 4.2.7.2.686 [id number] [facility] 2023-06-16 00:00:00 2023-06-16 00:00:00 Nurse Triage Luis Marely [facility] 1.2.840.114 350.1.13.10 4.2.7.2.686 [id number] [facility] 2023-06-09 00:00:00 2023-06-09 00:00:00 Orders Only Doctor Unassigned, [place] [facility] 1.2.840.114 350.1.13.10 4.2.7.2.686 [id number] [facility] 2023-06-08 00:00:00 2023-06-08 00:00:00 Telephone Amanda [facility] 1.2.840.114 350.1.13.10 4.2.7.2.686 [id number] 044 [id number] [facility] 2023-06-01 00:00:00 2023-06-01 00:00:00 Telephone Kwadwo Patel [facility] 1.2.840.114 350.1.13.10 4.2.7.2.686 [id number] [facility] 2023-05-20 00:00:00 2023-05-20 00:00:00 Refill Kwadwo Patel [facility] 1.2840.114 350.1.13.10 4.2.7.2.686 [id number] [id number] [facility] 2023-05-12 13:30:00 2023-05-12 13:30:00 Outpatient R JANEE SOTELO [facility] [id number] [facility] 2023-04-21 00:00:00 2023-04-21 00:00:00 Orders Only Doctor Unassigned, [place] [facility] 1.2840.114 350.1.13.10 4.2.7.2.686 [id number] [facility] 2023-04-20 00:00:00 2023-04-20 00:00:00 Refill Kwadwo Patel [facility] 1.2840.114 350.1.13.10 4.2.7.2.686 [id number] [id number] [facility] 2023-04-14 00:00:00 2023-04-14 00:00:00 Telephone Kwadwo Patel [facility] 1.2840.114 350.1.13.10 4.2.7.2.686 [id number] 044 [id number] [facility] 2023-04-08 00:00:00 2023-04-08 00:00:00 Orders Only Doctor Unassigned, [place] [facility] 1.2.840.114 350.1.13.10 4.2.7.2.686 [id number] [facility] 2023-04-02 00:00:00 2023-04-02 00:00:00 Telephone Kwadwo Patel [facility] 1.2.840.114 350.1.13.10 4.2.7.2.686 [id number] [id number] [facility] 2023-03-31 00:00:00 2023-03-31 00:00:00 Telephone Kwadwo Patel [facility] 1.2.840.114 350.1.13.10 4.2.7.2.686 [id number] 044 [id number] [facility] 2023-03-27 11:20:00 2023-03-27 12:28:10 Outpatient R AMANDA KWADWO [facility] [id number] [facility] 2023-03-27 11:20:00 2023-03-27 12:28:10 Office Visit Kwadwo Patel [facility] 1.2.840.114 350.1.13.10 4.2.7.2.686 [id number] 044 [id number] [facility] 2023-03-27 00:00:00 2023-03-27 00:00:00 Transition of Care Dina Medley 1.2.840.114 350.1.13.10 4.2.7.2.686 [id number] [facility] 2023-03-18 17:24:00 2023-03-26 16:41:00 Inpatient X ROSI JONES [facility] [id number] [facility] 2023-03-18 17:24:00 2023-03-26 16:41:00 Hospital Encounter Sarah Goodman David [facility] 1.2.840.114 350.1.13.10 4.2.7.2.686 [id number] [facility] 2023-03-20 11:45:00 2023-03-20 12:45:00 Surgery Foreign Wilkinson [facility] 1.2.840.114 350.1.13.10 4.2.7.2.686 [id number] [facility] 2023-03-18 00:00:00 2023-03-18 00:00:00 Telephone EugenioKwadwo gray [facility] 1.2.840.114 350.1.13.10 4.2.7.2.686 [id number] [facility] 2023-03-03 00:00:00 2023-03-03 00:00:00 Telephone Amanda Kwadwo [facility] 1.2.840.114 350.1.13.10 4.2.7.2.686 [id number] [facility] 2023-02-24 10:00:00 2023-02-24 10:00:00 Outpatient R ARAMISHAL GERI [facility] [id number] [facility] 2023-02-24 10:00:00 2023-02-24 10:00:00 Hospital Encounter Geri Darden [facility] ([facility] 1.2.840.114 350.1.13.10 4.2.7.2.686 [id number] [facility] 2023-02-23 11:41:43 2023-02-23 11:41:43 Anesthesia Event Raya Marina Esteban [facility] ([facility] 1.2.840.114 350.1.13.10 4.2.7.2.686 [id number] [facility] 2023-02-20 00:00:00 2023-02-20 00:00:00 Telephone Nurse, Kiran Echo [facility] ([facility] 1.2.840.114 350.1.13.10 4.2.7.2.686 [id number] [facility] 2023-02-20 00:00:00 2023-02-20 00:00:00 Kwadwo Churchill [facility] 1.2.840.114 350.1.13.10 4.2.7.2.686 [id number] [id number] [facility] 2023-02-10 08:00:00 2023-02-10 08:00:00 Hospital Geri Mccarthy [facility] ([facility] 1.2.840.114 350.1.13.10 4.2.7.2.686 [id number] [facility] 2023-02-09 00:00:00 2023-02-09 00:00:00 Telephone Nurse, Kiran Echo [facility] ([facility] 1.2.840.114 350.1.13.10 4.2.7.2.686 [id number] [facility] 2023-02-03 08:05:00 2023-02-03 08:10:00 Pre-Anesth esia Evaluation Call, Kiran Apac Phone [facility] ([facility] 1.2.840.114 350.1.13.10 4.2.7.2.686 [id number] [facility] 2023-01-27 14:20:00 2023-01-27 14:20:00 Outpatient EDY INIGUEZ HOWARD [facility] [id number] [facility] 2023-01-16 10:00:00 2023-01-16 10:00:00 Outpatient GERI COTTO [facility] [id number] [facility] 2023-01-02 11:50:00 2023-01-02 11:55:00 Pre-Anesth esia Evaluation Call, [facility] Phone [facility] ([facility] 1.2.114 350.1.13.10 4.2.7.2.686 [id number] [facility] 2023-01-02 00:00:00 2023-01-02 00:00:00 Outpatient GERI COTTO [facility] [id number] [facility] 2023-01-02 00:00:00 2023-01-02 00:00:00 Patient Secure Msg Doctor Unassigned, [place] [facility] 1..114 350.1.13.10 4.2.7.2.686 [id number] [facility] 2022-12-26 00:00:00 2022-12-26 00:00:00 Transition of Care Dina Medley [facility] 1..114 350.1.13.10 4.2.7.2.686 [id number] [facility] 2022-12-23 15:56:00 2022-12-25 14:16:00 Inpatient U PRIMITIVO [facility] [id number] [facility] 2022-12-23 15:56:00 2022-12-25 14:16:00 Hospital Encounter Jose Luque Jigar Asamoa, Joshua [facility] ([facility] 1.2.114 350.1.13.10 4.2.7.2.686 [id number] [facility] 2022-12-25 00:00:00 2022-12-25 00:00:00 Telephone Trevor Dan [facility] 1.2.840.114 350.1.13.10 4.2.7.2.686 [id number] [facility] 2022-12-24 00:00:00 2022-12-24 00:00:00 Letter (Out) Gail Primitivo [facility] ([facility] 1.2.840.114 350.1.13.10 4.2.7.2.686 [id number] [facility] 2022-12-19 10:20:00 2022-12-19 11:51:47 Outpatient R KWADWO PATEL [facility] [id number] [facility] 2022-12-19 10:20:00 2022-12-19 11:51:47 Office Visit Kwadwo Patel [facility] 1.2.840.114 350.1.13.10 4.2.7.2.686 [id number] [facility] 2022-12-10 14:24:00 2022-12-10 18:44:00 Emergency X AYO JOYNER [facility] E[facility] [id number] [facility] 2022-12-10 14:24:00 2022-12-10 18:44:00 Emergency Ayo Joyner [facility] 1.2.840.114 350.1.13.10 4.2.7.2.686 [id number] [facility] 2022-12-06 00:00:00 2022-12-06 00:00:00 Telephone Kwadwo Patel [facility] 1.2.840.114 350.1.13.10 4.2.7.2.686 [id number] [facility] 2022-12-04 22:38:00 2022-12-04 22:53:00 Emergency X MASHA AVILA [facility] ERT [id number] [facility] 2022-12-04 22:38:00 2022-12-04 22:53:00 Emergency Masha Avila [facility] 1.2840.114 350.1.13.10 4.2.7.2.686 [id number] [facility] 2022-12-04 00:00:00 2022-12-04 00:00:00 Orders Only Doctor Unassigned, [place] [facility] 1.2840.114 350.1.13.10 4.2.7.2.686 [id number] [facility] 2022-12-04 00:00:00 2022-12-04 00:00:00 Telephone Alize León [facility] 1.20.114 350.1.13.10 4.2.7.2.686 [id number] [facility] 2022-11-24 13:00:00 2022-11-24 13:15:00 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, [facility] Kwadwo Patel [facility] 1..114 350.1.13.10 4.2.7.2.686 [id number] [facility] 2022-11-24 13:00:00 2022-11-24 13:00:00 Outpatient R KWADWO PATEL [facility] [id number] [facility] 2022-11-24 00:00:00 2022-11-24 00:00:00 Telephone Kwadwo Patel [facility] 1..114 350.1.13.10 4.2.7.2.686 [id number] 044 [id number] [facility] 2022-11-18 14:47:00 2022-11-18 17:38:00 Emergency [place] [facility] ERT [id number] [facility] 2022-11-18 14:47:00 2022-11-18 17:38:00 Emergency Tala Aquino [facility] 1.2840.114 350.1.13.10 4.2.7.2.686 [id number] [id number] [facility] 2022-10-21 00:00:00 2022-10-21 00:00:00 Outpatient R KWADWO PATEL [facility] [id number] [facility] 2022-10-17 00:00:00 2022-10-17 00:00:00 Telephone RubymadhuriKwadwo gray [facility] 1.2840.114 350.1.13.10 4.2.7.2.686 [id number] 044 [id number] [facility] 2022-09-18 15:00:00 2022-09-18 15:39:13 Outpatient R RENÉZAKIAKWADWO ZAMBRANO [facility] [id number] [facility] 2022-09-18 15:00:00 2022-09-18 15:39:13 Office Visit Renézakiajuan manuel [facility] 1.2840.114 350.1.13.10 4.2.7.2.686 [id number] 044 [id number] [facility] 2022-09-18 00:00:00 2022-09-18 00:00:00 Orders Only Doctor Unassigned, [place] [facility] 1.2840.114 350.1.13.10 4.2.7.2.686 [id number] [id number] [facility] 2022-09-18 00:00:00 2022-09-18 00:00:00 Telephone Kwadwo Patel [facility] 1.284.114 350.1.13.10 4.2.7.2.686 [id number] [facility] 2022-08-15 15:40:00 2022-08-15 15:40:00 Outpatient R KWADWO PATEL [facility] [id number] [facility] 2022-08-13 00:00:00 2022-08-13 00:00:00 Refill Kwadwo Patel [facility] 1.2.840.114 350.1.13.10 4.2.7.2.686 [id number] 044 [id number] [facility] 2022-08-11 08:30:00 2022-08-11 08:30:00 Outpatient R [facility] [id number] [facility] 2022-07-25 00:00:00 2022-07-25 00:00:00 Telephone Kwadwo Patel [facility] 1..840.114 350.1.13.10 4.2.7.2.686 [id number] 044 [id number] [facility] 2022-07-24 00:00:00 2022-07-24 00:00:00 Telephone Kwadwo Patel [facility] 1.840.114 350.1.13.10 4.2.7.2.686 [id number] 044 [id number] [facility] 2022-07-18 00:00:00 2022-07-18 00:00:00 Orders Only Doctor Unassigned, [place] [facility] 1.84.114 350.1.13.10 4.2.7.2.686 [id number] [facility] 2022-07-10 14:40:00 2022-07-10 15:00:00 Urgent Care Lex Dave, [facility]ending [facility] 1.840.114 350.1.13.10 4.2.7.2.686 [id number] [facility] 2022-07-10 14:40:00 2022-07-10 14:40:00 Outpatient R LEX DAVE III [facility] [id number] [facility] 2022-07-10 00:00:00 2022-07-10 00:00:00 Refill Cindy Martínez [facility] 1.2.840.114 350.1.13.10 4.2.7.2.686 [id number] [facility] 2022-07-04 00:00:00 2022-07-04 00:00:00 Telephone Kwadwo Patel [facility] 1.2.840.114 350.1.13.10 4.2.7.2.686 [id number] 044 [id number] [facility] 2022-06-24 00:00:00 2022-06-24 00:00:00 Telephone Kwadwo Patel [facility] 1.2.840.114 350.1.13.10 4.2.7.2.686 [id number] 044 [id number] [facility] 2022-06-23 00:00:00 2022-06-23 00:00:00 Orders Only Doctor Unassigned, [place] [facility] 1.2.840.114 350.1.13.10 4.2.7.2.686 [id number] [id number] [facility] 2022-06-18 00:00:00 2022-06-18 00:00:00 Telephone Kwadwo Patel [facility] 1.2.840.114 350.1.13.10 4.2.7.2.686 [id number] 044 [id number] [facility] 2022-06-18 00:00:00 2022-06-18 00:00:00 Refill Kwadwo Patel [facility] 1.2.840.114 350.1.13.10 4.2.7.2.686 [id number] 044 [id number] [facility] 2022-06-16 00:00:00 2022-06-16 00:00:00 Telephone Kwadwo Patel [facility] 1.2.840.114 350.1.13.10 4.2.7.2.686 [id number] 044 [id number] [facility] 2022-06-04 00:00:00 2022-06-04 00:00:00 Refill Kwadwo Patel [facility] 1.2.840.114 350.1.13.10 4.2.7.2.686 [id number] 044 [id number] [facility] 2022-06-02 00:00:00 2022-06-02 00:00:00 Telephone Kwadwo Patel [facility] 1.2.840.114 350.1.13.10 4.2.7.2.686 [id number] 044 [id number] [facility] 2022-06-02 00:00:00 2022-06-02 00:00:00 Orders Only Doctor Unassigned, [place] [facility] 1.2.840.114 350.1.13.10 4.2.7.2.686 [id number] [id number] [facility] 2022-05-30 00:00:00 2022-05-30 00:00:00 Telephone Kwadwo Patel [facility] 1.2.840.114 350.1.13.10 4.2.7.2.686 [id number] 044 [id number] [facility] 2022-05-29 00:00:00 2022-05-29 00:00:00 Telephone Kwadwo Patel [facility] 1.2.840.114 350.1.13.10 4.2.7.2.686 [id number] 044 [id number] [facility] 2022-05-15 00:00:00 2022-05-15 00:00:00 Telephone Amanda Kwadwo [facility] 1.2.840.114 350.1.13.10 4.2.7.2.686 [id number] 044 [id number] [facility] 2022-05-15 00:00:00 2022-05-15 00:00:00 Orders Only Doctor Unassigned, [place] [facility] 1.2.840.114 350.1.13.10 4.2.7.2.686 [id number] [id number] [facility] 2022-05-07 00:00:00 2022-05-07 00:00:00 Orders Only Doctor Unassigned, [place] [facility] 1.2.840.114 350.1.13.10 4.2.7.2.686 [id number] 009 [id number] [facility] 2022-05-02 14:40:00 2022-05-02 16:00:59 Outpatient R RENÉMARCO AKWADWO [facility] [id number] [facility] 2022-05-02 14:40:00 2022-05-02 16:00:59 Office Visit Renémarco aKwadwo [facility] 1.2.840.114 350.1.13.10 4.2.7.2.686 [id number] 044 [id number] [facility] 2022-05-02 00:00:00 2022-05-02 00:00:00 Telephone Kwadwo Patel [facility] 1.2.840.114 350.1.13.10 4.2.7.2.686 [id number] 044 [id number] [facility] 2022-05-01 00:00:00 2022-05-01 00:00:00 Telephone Eugenioisaac Kwadwo [facility] 1.2.840.114 350.1.13.10 4.2.7.2.686 [id number] 044 [id number] [facility] 2022-04-28 00:00:00 2022-04-28 00:00:00 [facility] 1.2.840.114 350.1.13.10 4.2.7.2.686 [id number] 044 [id number] [facility] 2022-04-22 00:00:00 2022-04-22 00:00:00 Refill Kwadwo Patel [facility] 1.2.840.114 350.1.13.10 4.2.7.2.686 [id number] [facility] 2022-04-21 00:00:00 2022-04-21 00:00:00 Telephone Kwadwo Patel [facility] 1.2.840.114 350.1.13.10 4.2.7.2.686 [id number] 044 [id number] [facility] 2022-04-17 10:00:00 2022-04-17 10:15:00 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, [facility] Main Kwadwo Patel [facility] 1.2.840.114 350.1.13.10 4.2.7.2.686 [id number] [facility] 2022-04-17 10:00:00 2022-04-17 10:00:00 Outpatient R KWADWO PATEL [facility] [id number] [facility] 2022-04-17 00:00:00 2022-04-17 00:00:00 Case Management Driss Crow [facility] 1.2.840.114 350.1.13.10 4.2.7.2.686 [id number] [facility] 2022-04-17 00:00:2022-04-17 00:00:00 Telephone Kwadwo Patel [facility] [place] [facility] 1.2.840.114 350.1.13.10 4.2.7.2.686 [id number] [id number] [facility] 2022-04-14 00:00:00 2022-04-14 00:00:00 Telephone Kwadwo Patel [facility] 1.2.840.114 350.1.13.10 4.2.7.2.686 [id number] [facility] 2022-04-11 15:30:00 2022-04-11 15:30:00 Outpatient R SKINNY LIND OGECHUKWU [facility] [id number] [facility] 2022-04-11 00:00:00 2022-04-11 00:00:00 [facility] 1.2.840.114 350.1.13.10 4.2.7.2.686 [id number] [facility] 2022-04-10 14:40:00 2022-04-10 14:40:00 Outpatient R KWADWO PATEL [facility] [id number] [facility] 2022-04-07 08:30:00 2022-04-07 08:30:00 Outpatient R SUNSHINE ZHU [facility] [id number] [facility] 2022-04-02 13:00:00 2022-04-02 13:00:00 Outpatient R [facility] [id number] [facility] 2022-03-28 00:00:00 2022-03-28 00:00:00 Refill Kwadwo Patel [facility] 1.2.840.114 350.1.13.10 4.2.7.2.686 [id number] 044 [id number] [facility] 2022-03-25 13:00:00 2022-03-25 13:00:00 Outpatient R JANEE SOTELO [facility] [id number] [facility] 2022-03-25 00:00:00 2022-03-25 00:00:00 Refill Amanda Kwadwo [facility] 1.2.840.114 350.1.13.10 4.2.7.2.686 [id number] 044 [id number] [facility] 2022-03-21 00:00:00 2022-03-21 00:00:00 Refill EugenioisaacKwadwo [facility] 1.2.840.114 350.1.13.10 4.2.7.2.686 [id number] 044 [id number] [facility] 2022-03-13 00:00:00 2022-03-13 00:00:00 Telephone RenézakiaKwadwo zambrano [facility] 1.2.840.114 350.1.13.10 4.2.7.2.686 [id number] 044 [id number] [facility] 2022-03-05 00:00:00 2022-03-05 00:00:00 Refill EugenioKwadwo gray [facility] 1.2.840.114 350.1.13.10 4.2.7.2.686 [id number] 044 [id number] [facility] 2022-02-25 00:00:00 2022-02-25 00:00:00 Telephone Eugenioisaac Kwadwo [facility] 1.2.840.114 350.1.13.10 4.2.7.2.686 [id number] [facility] 2022-02-13 00:00:00 2022-02-13 00:00:00 Telephone RenézakiaKwadwo zambrano [facility] 1.2.840.114 350.1.13.10 4.2.7.2.686 [id number] 044 [id number] [facility] 2022-02-12 12:00:00 2022-02-12 12:00:00 Outpatient Jolie MARTÍNEZCINDY [facility] [id number] [facility] 2022-02-12 00:00:00 2022-02-12 00:00:[address] [facility] 1.2840.114 350.1.13.10 4.2.7.2.686 [id number] 044 [id number] [facility] 2022-02-06 00:00:00 2022-02-06 00:00:00 Orders Only Doctor Unassigned, [place] [facility] 1.2840.114 350.1.13.10 4.2.7.2.686 [id number] [facility] 2022-02-04 12:00:00 2022-02-04 12:00:00 Outpatient Jolie MARTÍNEZCINDY [facility] [id number] [facility] 2022-02-03 00:00:00 2022-02-03 00:00:00 Telephone EugenioKwadwo gray [facility] 1.2840.114 350.1.13.10 4.2.7.2.686 [id number] 044 [id number] [facility] 2022-02-03 00:00:00 2022-02-03 00:00:00 Telephone EugenioisaacKwadwo [facility] 1.2840.114 350.1.13.10 4.2.7.2.686 [id number] 044 [id number] [facility] 2022-01-31 00:00:00 2022-01-31 00:00:[address] [facility] 1.2840.114 350.1.13.10 4.2.7.2.686 [id number] 044 [id number] [facility] 2022-01-31 00:00:00 2022-01-31 00:00:00 Telephone Kwadwo Patel [facility] 1.2.840.114 350.1.13.10 4.2.7.2.686 [id number] [id number] [facility] 2022-01-31 00:00:00 2022-01-31 00:00:00 Telephone Kwadwo Patel [facility] 1.2.840.114 350.1.13.10 4.2.7.2.686 [id number] 044 [id number] [facility] 2022-01-28 00:00:00 2022-01-28 00:00:00 Telephone Kwadwo Patel [facility] 1.2.840.114 350.1.13.10 4.2.7.2.686 [id number] [id number] [facility] 2022-01-22 20:32:00 2022-01-22 21:50:00 Emergency X NATTYYENIGREGCHEVY [facility] ERT [id number] [facility] 2022-01-22 20:32:00 2022-01-22 21:50:00 Emergency Anne Chevy [facility] 1.2.840.114 350.1.13.10 4.2.7.2.686 [id number] [facility] 2022-01-08 15:20:00 2022-01-08 15:20:00 Outpatient R KWADWO PATEL [facility] [id number] [facility] 2022-01-08 15:20:00 2022-01-08 15:20:00 Outpatient KWADWO SAWYER [facility] [id number] [facility] 2022-01-07 13:00:2022-01-07 13:00:00 Outpatient R JUAN RAMON VELA [facility] [id number] [facility] 2022-01-02 00:00:00 2022-01-02 00:00:00 Refill Kwadwo Patel [facility] PROFESSIO NAL BUILDING 1.2.840.114 350.1.13.10 4.2.7.2.686 [id number] 044 [id number] [facility] 2021-12-12 08:00:00 2021-12-12 08:00:00 Outpatient R JUAN RAMON VELA [facility] [id number] [facility] 2021-11-21 00:00:00 2021-11-21 00:00:00 Orders Only Doctor Unassigned, [place] [facility] 1.2.840.114 350.1.13.10 4.2.7.2.686 [id number] [id number] [facility] 2021-11-17 00:00:00 2021-11-17 00:00:00 Refill RubyKwadwo zambrano [facility] 1.2.840.114 350.1.13.10 4.2.7.2.686 [id number] 044 [id number] [facility] 2021-11-11 08:30:00 2021-11-11 08:30:00 Outpatient R JUAN RAMON VELA [facility] [id number] [facility] 2021-11-08 14:40:00 2021-11-08 15:16:44 Outpatient R RENÉZAKIAKWADWO ZAMBRANO [facility] [id number] [facility] 2021-11-08 14:40:00 2021-11-08 15:16:44 Office Visit AmandaKwadwo [facility] 1.2.840.114 350.1.13.10 4.2.7.2.686 [id number] [id number] [facility] 2021-11-08 14:40:00 2021-11-08 15:16:44 Outpatient R KWADWO PATEL [facility] [id number] [facility] 2021-11-08 14:40:00 2021-11-08 15:16:44 Office Visit Kwadwo Patel [facility] 1.2.840.114 350.1.13.10 4.2.7.2.686 [id number] 044 [id number] [facility] 2021-10-29 00:00:00 2021-10-29 00:00:00 Telephone Kwadwo Patel [facility] 1.2.840.114 350.1.13.10 4.2.7.2.686 [id number] 044 [id number] [facility] 2021-10-17 00:00:00 2021-10-17 00:00:00 Telephone Kwadwo Patel [facility] 1.2.840.114 350.1.13.10 4.2.7.2.686 [id number] 044 [id number] [facility] 2021-10-17 00:00:00 2021-10-17 00:00:00 Orders Only Doctor Unassigned, [place] [facility] 1.2.840.114 350.1.13.10 4.2.7.2.686 [id number] [id number] [facility] 2021-10-16 08:15:00 2021-10-16 08:15:00 Outpatient DAYTON MCCLURE [facility] [id number] [facility] 2021-10-16 08:15:00 2021-10-16 08:15:00 Outpatient DAYTON MCCLURE [facility] [id number] [facility] 2021-10-15 11:00:00 2021-10-15 11:00:00 Outpatient CINDY HAMILTON [facility] [id number] [facility] 2021-10-15 11:00:00 2021-10-15 11:00:00 Outpatient R CINDY MARTÍNEZ [facility] [id number] [facility] 2021-10-15 00:00:00 2021-10-15 00:00:00 Telephone EugenioKwadwo gray [facility] 1.2.840.114 350.1.13.10 4.2.7.2.686 [id number] 044 [id number] [facility] 2021-10-10 00:00:00 2021-10-10 00:00:00 Telephone Eugenioisaac Kwadwo [facility] 1.2.840.114 350.1.13.10 4.2.7.2.686 [id number] 044 [id number] [facility] 2021-10-09 09:00:00 2021-10-09 09:00:00 Outpatient R DAYTON HAYES [facility] [id number] [facility] 2021-10-09 00:00:00 2021-10-09 00:00:00 Telephone RubyKwadwo zambrano [facility] 1.2.840.114 350.1.13.10 4.2.7.2.686 [id number] 044 [id number] [facility] 2021-10-07 00:00:00 2021-10-07 00:00:00 Telephone RubyKwadwo zambrano [facility] 1.2.840.114 350.1.13.10 4.2.7.2.686 [id number] 044 [id number] [facility] 2021-10-04 16:20:00 2021-10-04 16:41:30 Outpatient R KWADWO PATEL [facility] [id number] [facility] 2021-10-04 16:20:00 2021-10-04 16:41:30 Office Visit Kwadwo Patel [facility] 1..840.114 350.1.13.10 4.2.7.2.686 [id number] [id number] [facility] 2021-10-04 16:20:00 2021-10-04 16:41:30 Outpatient R KWADWO PATEL [facility] [id number] [facility] 2021-09-12 15:30:00 2021-09-12 15:30:00 Outpatient R SUNSHINE ZHU [facility] [id number] [facility] 2021-09-09 15:30:00 2021-09-09 15:30:00 Outpatient R SUNSHINE ZHU [facility] [id number] [facility] 2021-08-30 00:00:00 2021-08-30 00:00:00 Telephone Sunshine Zhu [facility] 1..840.114 350.1.13.10 4.2.7.2.686 [id number] [facility] 2021-08-28 00:00:00 2021-08-28 00:00:00 Telephone Kwadwo Patel [facility] ELENA [facility]ILD[facility] 1..840.114 350.1.13.10 4.2.7.2.686 [id number] 044 [id number] [facility] 2021-08-08 13:00:00 2021-08-08 13:58:03 Outpatient R KWADWO PATEL [facility] [id number] [facility] 2021-08-08 13:00:00 2021-08-08 13:58:03 Office Visit Kwadwo Patel [facility] 1..840.114 350.1.13.10 4.2.7.2.686 [id number] [facility] 2021-08-08 13:00:00 2021-08-08 13:58:03 Outpatient R KWADWO PATEL [facility] [id number] [facility] 2021-08-08 13:00:00 2021-08-08 13:58:03 Outpatient R KWADWO PATEL [facility] [id number] [facility] 2021-08-08 12:30:00 2021-08-08 12:45:00 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, [facility] Main Kwadwo Patel [facility] 1..840.114 350.1.13.10 4.2.7.2.686 [id number] [facility] 2021-08-08 00:00:00 2021-08-08 00:00:00 Orders Only Doctor Unassigned, [place] [facility] 1..840.114 350.1.13.10 4.2.7.2.686 [id number] [facility] 2021-08-07 11:20:00 2021-08-07 11:20:00 Outpatient R KWADWO PATEL [facility] [id number] [facility] 2021-08-07 11:20:00 2021-08-07 11:20:00 Outpatient R KWADWO PATEL [facility] [id number] [facility] 2021-07-19 00:00:00 2021-07-19 00:00:00 Telephone Kwadwo Patel [facility] 1..840.114 350.1.13.10 4.2.7.2.686 [id number] [facility] 2021-07-17 15:20:00 2021-07-17 15:20:00 Outpatient R AMANDA KWADWO [facility] [id number] [facility] 2021-07-13 18:37:00 2021-07-13 23:49:00 Emergency X ERMA RAE [facility] ERT [id number] [facility] 2021-07-13 18:37:00 2021-07-13 23:49:00 Emergency Erma Rae [facility] 1.2840.114 350.1.13.10 4.2.7.2.686 [id number] [facility] 2021-07-09 00:00:00 2021-07-09 00:00:00 Telephone Kwadwo Patel [facility] 1.2840.114 350.1.13.10 4.2.7.2.686 [id number] [facility] 2021-06-05 10:00:00 2021-06-05 11:11:23 Office Visit [facility]icio [facility] 1.2840.114 350.1.13.10 4.2.7.2.686 [id number] [facility] 2021-06-05 10:00:00 2021-06-05 11:11:23 Outpatient R MAURICIO [facility] [id number] [facility] 2021-06-05 10:00:00 2021-06-05 10:00:00 Outpatient R MAURICIO [facility] [id number] [facility] 2021-06-05 10:00:00 2021-06-05 10:00:00 Outpatient R MAURICIO [facility] [id number] [facility] 2021-06-05 00:00:00 2021-06-05 00:00:00 Refill Kwadwo Patel [facility] 1.840.114 350.1.13.10 4.2.7.2.686 [id number] [facility] 2021-05-31 00:00:00 2021-05-31 00:00:00 Orders Only Doctor Unassigned, [place] [facility] 1.2840.114 350.1.13.10 4.2.7.2.686 [id number] [facility] 2021-05-28 00:00:00 2021-05-28 00:00:00 Refill Verónica Garcia [facility] 1.2.840.114 350.1.13.10 4.2.7.2.686 [id number] 044 [id number] [facility] 2021-05-23 00:00:00 2021-05-23 00:00:00 Refill RenézakiaKwadwo zambrano [facility] 1.2.840.114 350.1.13.10 4.2.7.2.686 [id number] 044 [id number] [facility] 2021-05-23 00:00:00 2021-05-23 00:00:00 Refill Verónica Garcia [facility] 1.2.840.114 350.1.13.10 4.2.7.2.686 [id number] 044 [id number] [facility] 2021-05-23 00:00:00 2021-05-23 00:00:00 Refill RenézakiaKwadwo zambrano [facility] 1.2.840.114 350.1.13.10 4.2.7.2.686 [id number] [id number] [facility] 2021-05-19 00:00:00 2021-05-19 00:00:00 Refill RenézakiaKwadwo zambrano [facility] 1.2.840.114 350.1.13.10 4.2.7.2.686 [id number] 044 [id number] [facility] 2021-05-17 00:00:00 2021-05-17 00:00:00 Verónica Reynolds [facility] 1.2.840.114 350.1.13.10 4.2.7.2.686 [id number] [facility] 2021-05-17 00:00:00 2021-05-17 00:00:[address] [facility] 1.2.840.114 350.1.13.10 4.2.7.2.686 [id number] [facility] 2021-05-16 00:00:00 2021-05-16 00:00:00 Telephone Kwadwo Patel [facility] 1.2.840.114 350.1.13.10 4.2.7.2.686 [id number] 044 [id number] [facility] 2021-05-14 00:00:00 2021-05-14 00:00:00 Orders Only Doctor Unassigned, [place] [facility] 1.2.840.114 350.1.13.10 4.2.7.2.686 [id number] [id number] [facility] 2021-05-13 00:00:00 2021-05-13 00:00:00 Telephone Kwadwo Patel [facility] 1.2.840.114 350.1.13.10 4.2.7.2.686 [id number] 044 [id number] [facility] 2021-05-10 00:00:00 2021-05-10 00:00:00 Telephone Kwadwo Patel [facility] 1.2.840.114 350.1.13.10 4.2.7.2.686 [id number] 044 [id number] [facility] 2021-05-10 00:00:00 2021-05-10 00:00:00 Telephone Kwadwo Patel [facility] 1.2.840.114 350.1.13.10 4.2.7.2.686 [id number] 044 [id number] [facility] 2021-05-06 00:00:00 2021-05-06 00:00:00 Telephone Kwadwo Patel [facility] 1.2.840.114 350.1.13.10 4.2.7.2.686 [id number] [facility] 2021-05-06 00:00:00 2021-05-06 00:00:00 Patient Secure Msg Doctor Unassigned, [place] [facility] 1.2.840.114 350.1.13.10 4.2.7.2.686 [id number] [facility] 2021-05-01 11:26:16 2021-05-01 12:49:01 Office Visit Kwadwo Patel [facility] 1.2.840.114 350.1.13.10 4.2.7.2.686 [id number] [facility] 2021-05-01 11:20:00 2021-05-01 12:49:01 Outpatient R RENÉMARCO AKWADWO [facility] [id number] [facility] 2021-05-01 11:20:00 2021-05-01 11:20:00 Outpatient R RENÉMARCO AKWADWO [facility] [id number] [facility] 2021-05-01 00:00:00 2021-05-01 00:00:00 Telephone Kwadwo Patel [facility] 1.2.840.114 350.1.13.10 4.2.7.2.686 [id number] [facility] 2021-05-01 00:00:00 2021-05-01 00:00:00 Orders Only Doctor Unassigned, [place] [facility] 1.2.840.114 350.1.13.10 4.2.7.2.686 [id number] [id number] [facility] 2021-05-01 00:00:00 2021-05-01 00:00:00 Telephone Kwadwo Patel [facility] 1.2.840.114 350.1.13.10 4.2.7.2.686 [id number] [facility] 2021-05-01 00:00:00 2021-05-01 00:00:00 Telephone Kwadwo Patel [facility] 1.2.840.114 350.1.13.10 4.2.7.2.686 [id number] [facility] 2021-04-16 00:00:00 2021-04-16 00:00:00 Telephone Kwadwo Patel [facility] 1.2.840.114 350.1.13.10 4.2.7.2.686 [id number] [facility] 2021-03-30 00:00:00 2021-03-30 00:00:00 Orders Only Doctor Unassigned, [place] [facility] 1.2.840.114 350.1.13.10 4.2.7.2.686 [id number] [facility] 2021-03-20 13:20:00 2021-03-20 13:20:00 Outpatient R KWADWO PATEL [facility] [id number] [facility] 2021-03-11 12:30:00 2021-03-11 12:30:00 Outpatient R KWADWO PATEL [facility] [id number] [facility] 2021-03-11 11:59:10 2021-03-11 12:14:10 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, [facility] Main Kwadwo Patel [facility] 1.2.840.114 350.1.13.10 4.2.7.2.686 [id number] [facility] 2021-03-11 00:00:00 2021-03-11 00:00:00 Orders Only Doctor Unassigned, [place] [facility] 1.2.840.114 350.1.13.10 4.2.7.2.686 [id number] [id number] [facility] 2021-03-05 00:00:00 2021-03-05 00:00:00 Orders Only Doctor Unassigned, [place] [facility] 1.2.840.114 350.1.13.10 4.2.7.2.686 [id number] [facility] 2021-02-20 08:00:00 2021-02-20 08:00:00 Outpatient KWADWO SAWYER [facility] [id number] [facility] 2020-12-14 09:40:00 2020-12-14 09:40:00 Outpatient KWADWO SAWYER [facility] [id number] [facility] 2020-09-11 09:20:00 2020-09-11 09:20:00 Outpatient KWADWO SAWYER [facility] [id number] [facility] 2020-08-15 00:00:00 2020-08-15 00:00:00 Outpatient DAYTON MCCLURE [facility] [id number] [facility] 2020-08-06 13:30:00 2020-08-06 13:30:00 Outpatient R JESSICA BRITT [facility] [id number] [facility] 2020-08-06 12:00:00 2020-08-06 12:00:00 Outpatient R SHALONDA BURGESS [facility] [id number] [facility] 2020-08-02 14:45:00 2020-08-02 14:45:00 Outpatient R DAYTON HAYES [facility] [id number] [facility] 2020-06-13 09:00:00 2020-06-13 09:00:00 Outpatient KWADWO SAWYER [facility] [id number] [facility] 2020-06-11 10:00:00 2020-06-11 10:00:00 Outpatient R SHALONDA BURGESS [facility] [id number] [facility] 2020-05-29 08:40:00 2020-05-29 08:40:00 Outpatient R KWADWO PATEL [facility] [id number] [facility] 2020-04-19 13:00:00 2020-04-19 13:00:00 Outpatient R KARINA TEJEDA [facility] [id number] [facility] 2020-03-27 14:40:00 2020-03-27 14:40:00 Outpatient R KWADWO PATEL [facility] [id number] [facility] 2020-03-13 14:40:00 2020-03-13 14:40:00 Outpatient R KWADWO PATEL [facility] [id number] [facility] 2020-03-13 09:00:00 2020-03-13 09:00:00 Outpatient R YVES ESTEVEZ [facility] [id number] [facility] 2020-03-12 09:00:00 2020-03-12 09:00:00 Outpatient R JESSICA BRANTLEY [facility] [id number] [facility] 2020-03-08 16:00:00 2020-03-08 16:00:00 Outpatient R KWADWO PATEL [facility] [id number] [facility] 2020-03-05 13:00:00 2020-03-05 13:00:00 Outpatient R MARIYA PEREZ [facility] [id number] [facility] 2020-03-05 09:00:00 2020-03-05 09:00:00 Outpatient R JESSICA BRANTLEY [facility] [id number] [facility] 2020-02-28 10:30:00 2020-02-28 10:30:00 Outpatient R [facility] [id number] [facility] 2020-02-27 13:30:00 2020-02-27 13:30:00 Outpatient R SHALONDA BURGESS [facility] [id number] [facility] 2020-02-24 14:40:00 2020-02-24 14:40:00 Outpatient R KWADWO PATEL [facility] [id number] [facility] 2020-02-15 09:40:00 2020-02-15 09:40:00 Outpatient R YVES ESTEVEZ [facility] [id number] [facility] 2020-02-02 00:00:00 2020-02-02 00:00:00 Telephone Burak Rose [facility] 1.2.840.114 350.1.13.10 4.2.7.2.686 [id number] 044 [id number] 2020-02-02 00:00:00 2020-02-02 00:00:00 Telephone Mariya Perez [facility] 1.2.840.114 350.1.13.10 4.2.7.2.686 [id number] 044 [id number] 2020-02-02 00:00:00 2020-02-02 00:00:00 Telephone Mariya Perez [facility] 1.2.840.114 350.1.13.10 4.2.7.2.686 [id number] 2020-01-26 11:20:00 2020-01-26 11:20:00 Outpatient R [facility] [id number] [facility] 2019-12-01 13:00:00 2019-12-01 13:00:00 Outpatient R JAY WRIGHT [facility] [id number] [facility] 2019-11-03 12:40:00 2019-11-03 12:40:00 Outpatient R YVES ESTEVEZ [facility] [id number] [facility] 2019-10-17 10:35:00 2019-10-17 10:35:00 Outpatient R MARIYA PEREZ [facility] [id number] [facility] 2019-09-01 15:00:00 2019-09-01 15:00:00 Outpatient R ANALIA MUÑOZ [facility] [id number] [facility] 2019-06-12 23:58:56 2019-06-13 03:30:00 Emergency X CHEVY RODRÍGUEZ [facility] ERT [id number] [facility] Results Test Description Test Time Test Comments Results Result Co mments Source [facility] GLUCOSE (AUTOMATED)2023-03-26 12:48:30* Test Item Value Reference Range Interpretation Comme nts POCT GLU (test code = 0043200524) 214 mg/dL 70-110 H Lab Interpretation (test cod e = 21414-2) Abnormal [facility] GLUCOSE (AUTOMATED)2023-03-26 11:14:59* Test Item Value Reference Range Interpretation Comme nts POCT GLU (test code = 4307016503) 251 mg/dL 70-110 H Lab Interpretation (test cod e = 36175-6) Abnormal [facility] GLUCOSE (AUTOMATED)2023-03-26 08:14:39* Test Item Value Reference Range Interpretation Comme nts POCT GLU (test code = 4878968938) 308 mg/dL 70-110 H Lab Interpretation (test cod e = 98229-3) Abnormal [facility] GLUCOSE (AUTOMATED)2023-03-26 04:52:17* Test Item Value Reference Range Interpretation Comme nts POCT GLU (test code = 6632103014) 381 mg/dL 70-110 H Lab Interpretation (test cod e = 85766-3) Abnormal [facility] GLUCOSE (AUTOMATED)2023-03-26 01:19:30* Test Item Value Reference Range Interpretation Comme nts POCT GLU (test code = 1059641034) 382 mg/dL 70-110 H Lab Interpretation (test cod e = 98220-0) Abnormal [facility] GLUCOSE (AUTOMATED)2023-03-25 21:49:45* Test Item Value Reference Range Interpretation Comme nts POCT GLU (test code = 2215906681) 214 mg/dL 70-110 H Lab Interpretation (test cod e = 88514-3) Abnormal [facility] GLUCOSE (AUTOMATED)2023-03-25 16:55:00* Test Item Value Reference Range Interpretation Comme nts POCT GLU (test code = 6240382273) 238 mg/dL 70-110 H Lab Interpretation (test cod e = 28156-4) Abnormal [facility] GLUCOSE (AUTOMATED)2023-03-25 12:59:06* Test Item Value Reference Range Interpretation Comme nts POCT GLU (test code = 4158754712) 205 mg/dL 70-110 H Lab Interpretation (test cod e = 92552-3) Abnormal [facility] GLUCOSE (AUTOMATED)2023-03-25 01:05:50* Test Item Value Reference Range Interpretation Comme nts POCT GLU (test code = 1056350112) 209 mg/dL 70-110 H Lab Interpretation (test cod e = 52775-6) Abnormal [facility] GLUCOSE (AUTOMATED)2023-03-24 21:40:06* Test Item Value Reference Range Interpretation Comme nts POCT GLU (test code = 2297160181) 198 mg/dL 70-110 H Lab Interpretation (test cod e = 70708-4) Abnormal [facility] GLUCOSE (AUTOMATED)2023-03-24 16:49:51* Test Item Value Reference Range Interpretation Comme nts POCT GLU (test code = 4344365132) 162 mg/dL 70-110 H Lab Interpretation (test cod e = 66366-9) Abnormal [facility] GLUCOSE (AUTOMATED)2023-03-24 12:40:46* Test Item Value Reference Range Interpretation Comme nts POCT GLU (test code = 7019672789) 184 mg/dL 70-110 H Lab Interpretation (test cod e = 18909-7) Abnormal [facility] GLUCOSE (AUTOMATED)2023-03-24 01:22:06* Test Item Value Reference Range Interpretation Comme nts POCT GLU (test code = 3406245702) 239 mg/dL 70-110 H Lab Interpretation (test cod e = 82454-3) [id number] 01:01:24* Test Item Value Reference Range Interpretation Comme nts Blood Culture-Aerobic (test code = 29924-9) No organisms isolated No growth Previous preliminary verified result was Culture In Progress on 03/18/2023 at 2301 CDTPrevious preliminary verified result was No growth at 24 hours on 03/19/2023 at 2000 CDrevious preliminary verified result was No growth at 48 hours [facility] 03/20/2023 [facility] result was No growth at 72 hours on 03/21/2023 at 2000 CDT Blood Culture-Anaerobic (test code = 72246-9) No organisms isolated No growth Previous preliminary verified result was Culture In Progress on 03/18/2023 at 2301 CDTPrevious preliminary verified result was No growth at 24 hours on 03/19/2023 at 2000 CDTPrevious preliminary verified result was No growth at 48 hours on 03/20/2023 at 2000 CDrevious preliminary verified result was No growth at 72 hours on 03/21/2023 at 2000 CDT Lab Interpretation (test code = 59198-1) Normal [facility] GLUCOSE (AUTOMATED)2023-03-23 21:49:40* Test Item Value Reference Range Interpretation Comme nts POCT GLU (test code = 5317726801) 168 mg/dL 70-110 H Lab Interpretation (test cod e = 28883-4) Abnormal [facility] GLUCOSE (AUTOMATED)2023-03-23 16:42:18* Test Item Value Reference Range Interpretation Comme nts POCT GLU (test code = 3153481919) 198 mg/dL 70-110 H Lab Interpretation (test cod e = 09821-4) Abnormal [facility] GLUCOSE (AUTOMATED)2023-03-23 12:41:57* Test Item Value Reference Range Interpretation Comme nts POCT GLU (test code = 5733324181) 212 mg/dL 70-110 H Lab Interpretation (test cod e = 01773-0) Abnormal [facility] GLUCOSE (AUTOMATED)2023-03-23 02:06:18* Test Item Value Reference Range Interpretation Comme nts POCT GLU (test code = 6127503535) 272 mg/dL 70-110 H Lab Interpretation (test cod e = 13981-2) Abnormal [facility] GLUCOSE (AUTOMATED)2023-03-22 21:58:17* Test Item Value Reference Range Interpretation Comme nts POCT GLU (test code = 2061219240) 236 mg/dL 70-110 H Lab Interpretation (test cod e = 30486-1) Abnormal [facility] GLUCOSE (AUTOMATED)2023-03-22 16:35:13* Test Item Value Reference Range Interpretation Comme nts POCT GLU (test code = 4186916906) 159 mg/dL 70-110 H Lab Interpretation (test cod e = 61618-9) [facility] 13:21:24* Test Item Value Reference Range Interpretation Comme nts POCT GLU (test code = 6017675837) 207 mg/dL 70-110 H Lab Interpretation (test cod e = 61531-9) Abnormal [facility] GLUCOSE (AUTOMATED)2023-03-22 01:07:18* Test Item Value Reference Range Interpretation Comme nts POCT GLU (test code = 4836332022) 154 mg/dL 70-110 H Lab Interpretation (test cod e = 99400-9) Abnormal [facility] GLUCOSE (AUTOMATED)2023-03-22 01:07:18* Test Item Value Reference Range Interpretation Comme nts POCT GLU (test code = 9115226548) 154 mg/dL 70-110 H Lab Interpretation (test cod e = 61096-0) Abnormal [facility] GLUCOSE (AUTOMATED)2023-03-21 22:00:24* Test Item Value Reference Range Interpretation Comme nts POCT GLU (test code = 8651478152) 165 mg/dL 70-110 H Lab Interpretation (test cod e = 72836-7) Abnormal [facility] GLUCOSE (AUTOMATED)2023-03-21 22:00:24* Test Item Value Reference Range Interpretation Comme nts POCT GLU (test code = 4142789929) 165 mg/dL 70-110 H Lab Interpretation (test cod e = 43937-5) Abnormal [facility] GLUCOSE (AUTOMATED)2023-03-21 16:44:11* Test Item Value Reference Range Interpretation Comme nts POCT GLU (test code = 1023643396) 231 mg/dL 70-110 H Lab Interpretation (test cod e = 74007-4) Abnormal [facility] GLUCOSE (AUTOMATED)2023-03-21 16:44:11* Test Item Value Reference Range Interpretation Comme nts POCT GLU (test code = 4252969303) 231 mg/dL 70-110 H Lab Interpretation (test cod e = 81123-0) Abnormal [facility] GLUCOSE (AUTOMATED)2023-03-21 12:53:47* Test Item Value Reference Range Interpretation Comme nts POCT GLU (test code = 8704441977) 176 mg/dL 70-110 H Lab Interpretation (test cod e = 56799-3) Abnormal [facility] GLUCOSE (AUTOMATED)2023-03-21 12:53:47* Test Item Value Reference Range Interpretation Comme nts POCT GLU (test code = 6088829903) 176 mg/dL 70-110 H Lab Interpretation (test cod e = 82683-4) [facility] Draw within 30 minutes prior to 03/20/23 @ 1999 3rd dose.2023-03-21 01:44:17* Test Item Value Reference Range Interpretation Comme nts VANCO TROUGH (test code = 0943561703) 12.2 ug/mL 10.0-20.0 LIEN (test code = LIEN) Toxic Range: ?>20 ug/mL 15-20 ug/mL is recommended for severe infection or when Vancomycin PRAKASH is greater than or equal to 2. Lab Interpretation (test code = 62156-2) [facility] - Draw within 30 minutes prior to 03/20/23 @ 1999 3rd dose.2023-03-21 01:44:17* Test Item Value Reference Range Interpretation Comme nts VANCO TROUGH (test code = 4587659416) 12.2 ug/mL 10.0-20.0 LIEN (test code = LIEN) Toxic Range: ?>20 ug/mL 15-20 ug/mL is recommended for severe infection or when Vancomycin PRAKASH is greater than or equal to 2. Lab Interpretation (test code = 63436-3) Normal [facility] GLUCOSE (AUTOMATED)2023-03-21 01:22:29* Test Item Value Reference Range Interpretation Comme nts POCT GLU (test code = 2627863780) 256 mg/dL 70-110 H Lab Interpretation (test cod e = 43236-4) Abnormal [facility] GLUCOSE (AUTOMATED)2023-03-21 01:22:29* Test Item Value Reference Range Interpretation Comme nts POCT GLU (test code = 2642320259) 256 mg/dL 70-110 H Lab Interpretation (test cod e = 36857-6) Abnormal [facility] GLUCOSE (AUTOMATED)2023-03-20 21:47:01* Test Item Value Reference Range Interpretation Comme nts POCT GLU (test code = 9038715786) 260 mg/dL 70-110 H Lab Interpretation (test cod e = 19685-8) Abnormal [facility] GLUCOSE (AUTOMATED)2023-03-20 21:47:01* Test Item Value Reference Range Interpretation Comme nts POCT GLU (test code = 5823147551) 260 mg/dL 70-110 H Lab Interpretation (test cod e = 41131-9) Abnormal [facility] GLUCOSE (AUTOMATED)2023-03-20 18:29:33* Test Item Value Reference Range Interpretation Comme nts POCT GLU (test code = 1728639729) 126 mg/dL 70-110 H Lab Interpretation (test cod e = 76459-5) Abnormal [facility] GLUCOSE (AUTOMATED)2023-03-20 18:29:33* Test Item Value Reference Range Interpretation Comme nts POCT GLU (test code = 4096967372) 126 mg/dL 70-110 H Lab Interpretation (test cod e = 90265-6) Abnormal [facility] GLUCOSE (AUTOMATED)2023-03-20 13:06:50* Test Item Value Reference Range Interpretation Comme nts POCT GLU (test code = 4800139736) 153 mg/dL 70-110 H Lab Interpretation (test cod e = 79275-8) Abnormal [facility] GLUCOSE (AUTOMATED)2023-03-20 13:06:50* Test Item Value Reference Range Interpretation Comme nts POCT GLU (test code = 9110963973) 153 mg/dL 70-110 H Lab Interpretation (test cod e = 30453-2) Abnormal [facility] GLUCOSE (AUTOMATED)2023-03-20 01:26:04* Test Item Value Reference Range Interpretation Comme nts POCT GLU (test code = 8978212617) 267 mg/dL 70-110 H Lab Interpretation (test cod e = 70290-9) Abnormal [facility] GLUCOSE (AUTOMATED)2023-03-20 01:26:04* Test Item Value Reference Range Interpretation Comme nts POCT GLU (test code = 1997962686) 267 mg/dL 70-110 H Lab Interpretation (test cod e = 01049-8) Abnormal [facility] GLUCOSE (AUTOMATED)2023-03-19 21:49:02* Test Item Value Reference Range Interpretation Comme nts POCT GLU (test code = 1229065735) 226 mg/dL 70-110 H Lab Interpretation (test cod e = 33619-9) Abnormal [facility] GLUCOSE (AUTOMATED)2023-03-19 21:49:02* Test Item Value Reference Range Interpretation Comme nts POCT GLU (test code = 2009826159) 226 mg/dL 70-110 H Lab Interpretation (test cod e = 05986-3) Abnormal [facility] GLUCOSE (AUTOMATED)2023-03-19 16:37:57* Test Item Value Reference Range Interpretation Comme nts POCT GLU (test code = 5825002933) 198 mg/dL 70-110 H Lab Interpretation (test cod e = 13353-1) Abnormal [facility] GLUCOSE (AUTOMATED)2023-03-19 16:37:57* Test Item Value Reference Range Interpretation Comme nts POCT GLU (test code = 7215805244) 198 mg/dL 70-110 H Lab Interpretation (test cod e = 65186-4) Abnormal [facility] WITH [id number] 16:18:10* Test Item Value Reference Range Interpretation [...] 32.4 g/dL 31.6-35.1 RDW-SD (test code = 63948-0) 43.4 fL 39.0-49.9 RDW-CV (test code = 788-0) 14.3 % 12.0-15.5 PLT (test code = 777-3) 419 See_Comment H [Automated message] The system which generated this result transmitted reference range: 166 - 358 10*3/?L. The reference range was not used to interpret this result as normal/abnormal. MPV (test code = 99861-6) 9.1 fL 9.5-12.9 L NRBC/100 WBC (test code = 4330616783) 0.0 See_Comment [Automated message] The system which generated this result transmitted reference range: 0.0 - 10.0 /100 WBCs. The reference range was not used to interpret this result as normal/abnormal. NRBC x10^3 (test code = 5213568906) See_Comment [Automated message] The system which generated this result transmitted reference range: 10*3/?L. The reference range was not used to interpret this result as normal/abnormal. GRAN MAT (NEUT) % (test code = 770-8) 78.7 % IMM GRAN % (test code = 8329734752) 0.90 % LYMPH % (test code = 736-9) 11.7 % MONO % (test code = 5905-5) 7.0 % EOS % (test code = 713-8) 1.3 % BASO % (test code = 706-2) 0.4 % GRAN MAT x10^3(ANC) (test code = 6278840010) 13.17 10*3/uL 1.88-7.09 H IMM GRAN x10^3 (test code = 1009984291) 0.15 10*3/uL 0.00-0.06 H LYMPH x10^3 (test code = 731-0) 1.95 10*3/uL 1.32-3.29 MONO x10^3 (test code = 742-7) 1.17 10*3/uL 0.33-0.92 H EOS x10^3 (test code = 711-2) 0.22 10*3/uL 0.03-0.39 BASO x10^3 (test code = 704-7) 0.06 10*3/uL 0.01-0.07 Lab Interpretation (test code = 29278-0) Abnormal [facility] WITH [id number] 16:18:10* Test Item Value Reference Range Interpretation [...] 32.4 g/dL 31.6-35.1 RDW-SD (test code = 30203-5) 43.4 fL 39.0-49.9 RDW-CV (test code = 788-0) 14.3 % 12.0-15.5 PLT (test code = 777-3) 419 See_Comment H [Automated message] The system which generated this result transmitted reference range: 166 - 358 10*3/?L. The reference range was not used to interpret this result as normal/abnormal. MPV (test code = 29328-1) 9.1 fL 9.5-12.9 L NRBC/100 WBC (test code = 4562629531) 0.0 See_Comment [Automated message] The system which generated this result transmitted reference range: 0.0 - 10.0 /100 WBCs. The reference range was not used to interpret this result as normal/abnormal. NRBC x10^3 (test code = 9265978794) See_Comment [Automated message] The system which generated this result transmitted reference range: 10*3/?L. The reference range was not used to interpret this result as normal/abnormal. GRAN MAT (NEUT) % (test code = 770-8) 78.7 % IMM GRAN % (test code = 4083812217) 0.90 % LYMPH % (test code = 736-9) 11.7 % MONO % (test code = 5905-5) 7.0 % EOS % (test code = 713-8) 1.3 % BASO % (test code = 706-2) 0.4 % GRAN MAT x10^3(ANC) (test code = 4382647132) 13.17 10*3/uL 1.88-7.09 H IMM GRAN x10^3 (test code = 0121133811) 0.15 10*3/uL 0.00-0.06 H LYMPH x10^3 (test code = 731-0) 1.95 10*3/uL 1.32-3.29 MONO x10^3 (test code = 742-7) 1.17 10*3/uL 0.33-0.92 H EOS x10^3 (test code = 711-2) 0.22 10*3/uL 0.03-0.39 BASO x10^3 (test code = 704-7) 0.06 10*3/uL 0.01-0.07 Lab Interpretation (test code = 17260-5) Abnormal [facility] METABOLIC PANEL (NA, K, CL, CO2, GLUCOSE, BUN, CREATININE, CA)2023-03-19 16:14:05* Test Item Value Reference Range Interpretation Comme nts NA (test code = 4419564263) 136 mmol/L 135-145 K (test code = 5615050731) 4.7 mmol/L 3.5-5.0 CL (test code = 8406362559) 108 mmol/L 98-108 CO2 TOTAL (test code = 2071417494) 21 mmol/L 23-31 L AGAP (test code = 7631144683) 7 2-16 BUN (test code = 5968994435) 31 mg/dL 7-23 H GLUCOSE (test code = 8965748134) 158 mg/dL 70-110 H CREATININE (test code = 5773510482) 1.20 mg/dL 0.50-1.04 H CALCIUM (test code = 5023447484) 8.0 mg/dL 8.6-10.6 L eGFR (test code = 7822186355) 47.7 mL/min/1.73m2 LIEN (test code = LIEN) [...] imaging tests). Lab Interpretation (test code = 52518-7) Abnormal [facility] METABOLIC PANEL (NA, K, CL, CO2, GLUCOSE, BUN, CREATININE, CA)2023-03-19 16:14:05* Test Item Value Reference Range Interpretation Comme nts NA (test code = 0640176827) 136 mmol/L 135-145 K (test code = 1142557860) 4.7 mmol/L 3.5-5.0 CL (test code = 9836563724) 108 mmol/L 98-108 CO2 TOTAL (test code = 3374525335) 21 mmol/L 23-31 L AGAP (test code = 0812251037) 7 2-16 BUN (test code = 9812511282) 31 mg/dL 7-23 H GLUCOSE (test code = 4356921315) 158 mg/dL 70-110 H CREATININE (test code = 7281433045) 1.20 mg/dL 0.50-1.04 H CALCIUM (test code = 7270563369) 8.0 mg/dL 8.6-10.6 L eGFR (test code = 7695661830) 47.7 mL/min/1.73m2 LIEN (test code = LIEN) [...] imaging tests). Lab Interpretation (test code = 57336-2) Abnormal [facility] GLUCOSE (AUTOMATED)2023-03-19 12:34:18* Test Item Value Reference Range Interpretation Comme nts POCT GLU (test code = 3189127298) 111 mg/dL 70-110 H Lab Interpretation (test cod e = 70607-0) Abnormal [facility] GLUCOSE (AUTOMATED)2023-03-19 12:34:18* Test Item Value Reference Range Interpretation Comme nts POCT GLU (test code = 6167228203) 111 mg/dL 70-110 H Lab Interpretation (test cod e = 73941-4) Abnormal [facility] GLUCOSE (AUTOMATED)2023-03-19 03:29:06* Test Item Value Reference Range Interpretation Comme nts POCT GLU (test code = 0927600662) 80 mg/dL 70-110 Lab Interpretation (test cod e = 96267-2) Normal [facility] GLUCOSE (AUTOMATED)2023-03-19 03:29:06* Test Item Value Reference Range Interpretation Comme nts POCT GLU (test code = 4819083609) 80 mg/dL 70-110 Lab Interpretation (test cod e = 35469-9) [facility] 01:51:17* Test Item Value Reference Range Interpretation Comme nts HGB A1C (test code = 4548-4) 6.4 % 4.0-5.7 H LIEN (test code = LIEN) Reference RangesNormal: <5.7%Prediabetes: 5.7 - 6.4%Diabetes: > 6.5% Lab Interpretation (test code = 84670-3) [facility]normal [facility] Center[facility] Hem[facility] (A1C)2023-03-19 01:51:17* Test Item Value Reference Range Interpretation Comme nts HGB A1C (test code = 4548-4) 6.4 % 4.0-5.7 H LIEN (test code = LIEN) Reference RangesNormal: <5.7%Prediabetes: 5.7 - 6.4%Diabetes: > 6.5% Lab Interpretation (test code = 79276-5) Abnormal [facility] WITH [id number] 00:36:03* Test Item Value Reference Range Interpretation [...] 32.4 g/dL 31.6-35.1 RDW-SD (test code = 63300-3) 44.2 fL 39.0-49.9 RDW-CV (test code = 788-0) 14.4 % 12.0-15.5 PLT (test code = 777-3) 480 See_Comment H [Automated message] The system which generated this result transmitted reference range: 166 - 358 10*3/?L. The reference range was not used to interpret this result as normal/abnormal. MPV (test code = 38124-4) 9.4 fL 9.5-12.9 L NRBC/100 WBC (test code = 5295255368) 0.0 See_Comment [Automated message] The system which generated this result transmitted reference range: 0.0 - 10.0 /100 WBCs. The reference range was not used to interpret this result as normal/abnormal. NRBC x10^3 (test code = 7565959673) See_Comment [Automated message] The system which generated this result transmitted reference range: 10*3/?L. The reference range was not used to interpret this result as normal/abnormal. SEG % (test code = 34342-4) 72 % 33-76 BAND % (test code = 30820-3) 7 % 0-1 H LYMPH % (test code = 33945-1) 14 % 14-54 MONO % (test code = 60354-7) 6 % 0-4 H EOS % (test code = 79759-5) 1 % 0-3 ANC (test code = 753-4) 20.19 10*3/uL 1.88-7.09 H Lab Interpretation (test code = 03482-5) Abnormal [facility] WITH [id number] 00:36:03* Test Item Value Reference Range Interpretation [...] 32.4 g/dL 31.6-35.1 RDW-SD (test code = 26566-1) 44.2 fL 39.0-49.9 RDW-CV (test code = 788-0) 14.4 % 12.0-15.5 PLT (test code = 777-3) 480 See_Comment H [Automated message] The system which generated this result transmitted reference range: 166 - 358 10*3/?L. The reference range was not used to interpret this result as normal/abnormal. MPV (test code = 28509-6) 9.4 fL 9.5-12.9 L NRBC/100 WBC (test code = 2299152544) 0.0 See_Comment [Automated message] The system which generated this result transmitted reference range: 0.0 - 10.0 /100 WBCs. The reference range was not used to interpret this result as normal/abnormal. NRBC x10^3 (test code = 7787017012) See_Comment [Automated message] The system which generated this result transmitted reference range: 10*3/?L. The reference range was not used to interpret this result as normal/abnormal. SEG % (test code = 35395-4) 72 % 33-76 BAND % (test code = 29864-6) 7 % 0-1 H LYMPH % (test code = 73217-8) 14 % 14-54 MONO % (test code = 83610-8) 6 % 0-4 H EOS % (test code = 89491-2) 1 % 0-3 ANC (test code = 753-4) 20.19 10*3/uL 1.88-7.09 H Lab Interpretation (test code = 61893-1) Abnormal [facility]. METABOLIC PANEL (66795)2023-03-19 00:09:19* Test Item Value Reference Range Interpretation Comme nts NA (test code = 9980381270) 136 mmol/L 135-145 K (test code = 1695101549) 5.3 mmol/L 3.5-5.0 H CL (test code = 4238629392) 104 mmol/L 98-108 CO2 TOTAL (test code = 6653037222) 21 mmol/L 23-31 L AGAP (test code = 0375608378) 11 2-16 BUN (test code = 3145064500) 41 mg/dL 7-23 H GLUCOSE (test code = 6173619376) 66 mg/dL 70-110 L CREATININE (test code = 4993925557) 1.47 mg/dL 0.50-1.04 H TOTAL BILI (test code = 2348253731) 0.4 mg/dL 0.1-1.1 CALCIUM (test code = 4103514592) 8.5 mg/dL 8.6-10.6 L T PROTEIN (test code = 7674838885) 7.5 g/dL 6.3-8.2 ALBUMIN (test code = 1146248805) 3.7 g/dL 3.5-5.0 ALK PHOS (test code = 1908707216) 99 U/L 34-122 ALTv (test code = 1742-6) 16 U/L 5-35 AST(SGOT) (test code = 1895973085) 16 U/L 13-40 eGFR (test code = 2611245433) 37.8 mL/min/1.73m2 LIEN (test code = LIEN) [...] imaging tests). Lab Interpretation (test code = 78069-6) Abnormal [facility]. METABOLIC PANEL (98463)2023-03-19 00:09:19* Test Item Value Reference Range Interpretation Comme nts NA (test code = 2043084765) 136 mmol/L 135-145 K (test code = 6400605519) 5.3 mmol/L 3.5-5.0 H CL (test code = 5550664662) 104 mmol/L 98-108 CO2 TOTAL (test code = 4687057336) 21 mmol/L 23-31 L AGAP (test code = 8031187997) 11 2-16 BUN (test code = 6400783024) 41 mg/dL 7-23 H GLUCOSE (test code = 0632548249) 66 mg/dL 70-110 L CREATININE (test code = 1726975728) 1.47 mg/dL 0.50-1.04 H TOTAL BILI (test code = 0926227647) 0.4 mg/dL 0.1-1.1 CALCIUM (test code = 6736224451) 8.5 mg/dL 8.6-10.6 L T PROTEIN (test code = 8997522138) 7.5 g/dL 6.3-8.2 ALBUMIN (test code = 3221279071) 3.7 g/dL 3.5-5.0 ALK PHOS (test code = 0662105786) 99 U/L 34-122 ALTv (test code = 1742-6) 16 U/L 5-35 AST(SGOT) (test code = 4027192123) 16 U/L 13-40 eGFR (test code = 2496519523) 37.8 mL/min/1.73m2 LIEN (test code = LIEN) [...] imaging tests). Lab Interpretation (test code = 74867-7) Abnormal [facility] GLUCOSE (AUTOMATED)2022-12-25 17:15:52* Test Item Value Reference Range Interpretation Comme nts POCT GLU (test code = 5403578633) 255 mg/dL 70-110 H Lab Interpretation (test cod e = 50148-2) Abnormal [facility] GLUCOSE (AUTOMATED)2022-12-25 13:44:51* Test Item Value Reference Range Interpretation Comme nts POCT GLU (test code = 0570230221) 246 mg/dL 70-110 H Lab Interpretation (test cod e = 05813-1) Abnormal [facility] GLUCOSE (AUTOMATED)2022-12-25 02:05:37* Test Item Value Reference Range Interpretation Comme nts POCT GLU (test code = 7720479596) 180 mg/dL 70-110 H Lab Interpretation (test cod e = 81353-0) Abnormal [facility] GLUCOSE (AUTOMATED)2022-12-24 22:13:36* Test Item Value Reference Range Interpretation Comme nts POCT GLU (test code = 0834349939) 68 mg/dL 70-110 L Lab Interpretation (test cod e = 28087-5) Abnormal [facility] GLUCOSE (AUTOMATED)2022-12-24 17:59:23* Test Item Value Reference Range Interpretation Comme nts POCT GLU (test code = 9487251226) 247 mg/dL 70-110 H Lab Interpretation (test cod e = 95435-2) Abnormal [facility] GLUCOSE (AUTOMATED)2022-12-24 13:07:03* Test Item Value Reference Range Interpretation Comme nts POCT GLU (test code = 7605438639) 316 mg/dL 70-110 H Lab Interpretation (test cod e = 93387-7) Abnormal [facility] METABOLIC PANEL (NA, K, CL, CO2, GLUCOSE, BUN, CREATININE, CA)2022-12-24 11:05:59* Test Item Value Reference Range Interpretation Comme nts NA (test code = 1283168429) 133 mmol/L 135-145 L K (test code = 1069806831) 4.9 mmol/L 3.5-5.0 CL (test code = 3706444438) 104 mmol/L 98-108 CO2 TOTAL (test code = 1596496398) 21 mmol/L 23-31 L AGAP (test code = 1870409852) 8 2-16 BUN (test code = 6488477981) 19 mg/dL 7-23 GLUCOSE (test code = 3849449115) 299 mg/dL 70-110 H CREATININE (test code = 7169368727) 1.12 mg/dL 0.50-1.04 H CALCIUM (test code = 7177844242) 8.4 mg/dL 8.6-10.6 L eGFR (test code = 6558265276) 51.7 mL/min/1.73m2 LIEN (test code = LIEN) [...] imaging tests). Lab Interpretation (test code = 63209-7) [facility] Lipd Panel (70289)(TOTAL CHOLESTEROL, TRIGLYCERIDES, HDL)2022-12-24 11:02:21* Test Item Value Reference Range Interpretation Comme nts CHOL (test code = 2409745857) 153 mg/dL 120-200 HDL (test code = 1126495446) 26 mg/dL >=50 L HDLC RATIO (test code = 1623886354) 5.9 <=4.5 H TRIG (test code = 9194383807) 205 mg/dL 30-170 H LDL CHOL (test code = 36061-3) 86 mg/dL <=160 VLDL (test code = 0728688728) 41 mg/dL 5-60 Lab Interpretation (test cod e = 85065-1) Abnormal [facility] GLUCOSE (AUTOMATED)2022-12-24 04:14:31* Test Item Value Reference Range Interpretation Comme [facility] POCT GLU (test code = 2247080844) 212 mg/dL 70-110 H Lab Interpretation (test cod e = 10411-2) Abnormal [facility] CenterGlycosyated Hemoglobin (A1C)2022-12-24 02:31:39* Test Item Value Reference Range Interpretation Comme [facility] HGB A1C (test code = 4548-4) 4.0-5.7 H LIEN (test code = LIEN) Reference RangesNormal: <5.7%Prediabetes: 5.7 - 6.4%Diabetes: > 6.5% Lab Interpretation (test code = 50165-2) Abnormal [facility] GLUCOSE (AUTOMATED)2022-12-24 02:09:23* Test Item Value Reference Range Interpretation Comme nts POCT GLU (test code = 1163893608) 253 mg/dL 70-110 H Lab Interpretation (test cod e = 81325-0) Abnormal [facility] GLUCOSE (AUTOMATED)2022-12-24 00:19:50* Test Item Value Reference Range Interpretation Comme nts POCT GLU (test code = 3289529757) 376 mg/dL 70-110 H Lab Interpretation (test cod e = 33785-0) [facility]2022-12-23 23:38:15* Test Item Value Reference Range Interpretation Comme nts POCT GLU (test code = 6246057112) 493 mg/dL 70-110 HH Lab Interpretation (test cod e = 89318-7) Abnormal [facility] CenterTROPONIN [id number] 22:04:10* Test Item Value Reference Range Interpretation Comme nts TROPONIN I (test code = 8396403018) 0.007 ng/mL <=0.034 LIEN (test code = [...] of biotin. Lab Interpretation (test code = 60400-7) Normal [facility] CenterN-TERMINAL [id number] 22:01:29* Test Item Value Reference Range Interpretation Comme nts NT-proBNP (test code = 5233757389) 283 pg/mL <=125 H LIEN (test code = LIEN) Biotin has been reported to cause a negative bias, interpret results relative to patient's use of biotin. Lab Interpretation (test code = 56536-7) Abnormal [facility] CenterCOMP. METABOLIC PANEL (75478)2022-12-23 22:00:27* Test Item Value Reference Range Interpretation Comme nts NA (test code = 2579209960) 134 mmol/L 135-145 L K (test code = 8692679865) 5.9 mmol/L 3.5-5.0 H CL (test code = 9802854838) 98 mmol/L 98-108 CO2 TOTAL (test code = 5583886102) 24 mmol/L 23-31 AGAP (test code = 6542716723) 12 2-16 BUN (test code = 8171805101) 23 mg/dL 7-23 GLUCOSE (test code = 0057569018) 489 mg/dL 70-110 HH CREATININE (test code = 2920601088) 1.26 mg/dL 0.50-1.04 H TOTAL BILI (test code = 1236370364) 0.5 mg/dL 0.1-1.1 CALCIUM (test code = 8381811751) 9.2 mg/dL 8.6-10.6 T PROTEIN (test code = 5217289057) 6.4 g/dL 6.3-8.2 ALBUMIN (test code = 0275439566) 3.6 g/dL 3.5-5.0 ALK PHOS (test code = 4904541941) 77 U/L 34-122 ALTv (test code = 1742-6) 16 U/L 5-35 AST(SGOT) (test code = 7882040041) 21 U/L 13-40 eGFR (test code = 9347701640) 45.1 mL/min/1.73m2 LIEN (test code = LIEN) [...] imaging tests). Lab Interpretation (test code = 74995-7) Abnormal [facility] CenterETHANOL2023-06-13 21:57:59 ALCOHOL<10mg/dL12/23/2022 4:57 [facility] Znvprxvc67-678 Toxic>100 Depression of SEO EXPERT>400 Fatalities ReportedLamb [facility] CenterACTIVATED PARTIAL THRMPLAS [id number] 21:50:48* Test Item Value Reference Range Interpretation Comme nts APTT Patient (test code = 3173-2) 25 See_Comment [Automated message] The system which generated this result transmitted reference range: 23 - 38 Seconds. The reference range was not used to interpret this result as normal/abnormal. LIEN (test code = LIEN) The [facility] patient population mean normal value for aPTT is 30 seconds. Lab Interpretation (test code = 69063-6) Normal [facility] CenterPROTHROMBIN TIME / [id number] 21:48:46* Test Item Value Reference Range Interpretation Comme nts PROTIME PATIENT (test code = 5964-2) 12.4 See_Comment [Automated [employer]] The system which generated this result transmitted reference range: 12.0 - 14.7 Seconds. The reference range was not used to interpret this result as normal/abnormal. INR (test code = 6301-6) 1.0 Normal INR <1.1; Warfarin Therapeutic range 2.0 to 3.0 or 2.5 to 3.5, depending upon the indications. Lab Interpretation (test code = 38986-3) Normal [facility] CenterCBC WITH [id number] 21:41:30* Test Item Value Reference Range Interpretation Comme nts WBC (test code = 6690-2) 10.76 See_Comment [Automated [employer] The system which generated this result transmitted reference range: 4.30 - 11.10 10*3/?L. The reference range was not used to interpret this result as normal/abnormal. RBC (test code = 789-8) 4.76 See_Comment [Automated [employer]] The system which generated this result transmitted [...] 33.5 g/dL 31.6-35.1 RDW-SD (test code = 50668-3) 36.5 fL 39.0-49.9 L RDW-CV (test code = 788-0) 12.9 % 12.0-15.5 PLT (test code = 777-3) 412 See_Comment H [Automated messa ge] The system which generated this result transmitted reference range: 166 - 358 10*3/?L. The reference range was not used to interpret this result as normal/abnormal. MPV (test code = 47123-7) 8.8 fL 9.5-12.9 L NRBC/100 WBC (test code = 3458764627) 0.0 See_Comment [Automated [employer]] The system which generated this result transmitted reference range: 0.0 - 10.0 /100 WBCs. The reference range was not used to interpret this result as normal/abnormal. NRBC x10^3 (test code = 2364654981) See_Comment [Automated [employer]] The system which generated this result transmitted reference range: 10*3/?L. The reference range was not used to interpret this result as normal/abnormal. GRAN MAT (NEUT) % (test code = 770-8) 61.1 % IMM GRAN % (test code = 2047361617) 0.90 % LYMPH % (test code = 736-9) 28.5 % MONO % (test code = 5905-5) 5.9 % EOS % (test code = 713-8) 2.9 % BASO % (test code = 706-2) 0.7 % GRAN MAT x10^3(ANC) (test code = 3810756862) 6.57 10*3/uL 1.88-7.09 IMM GRAN x10^3 (test code = 7177202032) 0.10 10*3/uL 0.00-0.06 H LYMPH x10^3 (test code = 731-0) 3.07 10*3/uL 1.32-3.29 MONO x10^3 (test code = 742-7) 0.63 10*3/uL 0.33-0.92 EOS x10^3 (test code = 711-2) 0.31 10*3/uL 0.03-0.39 BASO x10^3 (test code = 704-7) 0.08 10*3/uL 0.01-0.07 H Lab Interpretation (test code = 79358-8) Abnormal [facility] GLUCOSE (AUTOMATED)2022-12-10 23:05:12* Test Item Value Reference Range Interpretation Comme nts POCT GLU (test code = 0899416628) 251 mg/dL 70-110 H Lab Interpretation (test cod e = 05041-5) Abnormal [facility] GLUCOSE (AUTOMATED)2022-12-10 22:28:43* Test Item Value Reference Range Interpretation Comme nts POCT GLU (test code = 7144690342) 383 mg/dL 70-110 H Lab Interpretation (test cod e = 15106-7) Abnormal [facility] GLUCOSE (AUTOMATED)2022-12-10 21:26:50* Test Item Value Reference Range Interpretation Comme nts POCT GLU (test code = 5968039899) 570 mg/dL 70-110 HH Notified Provide r Lab Interpretation (test code = 44662-6) Abnormal [facility] GLUCOSE (AUTOMATED)2022-12-10 21:21:29* Test Item Value Reference Range Interpretation Comme nts POCT GLU (test code = 9399724622) 70-110 HH Lab Interpretation (test cod e = 91140-8) Abnormal [facility]. METABOLIC PANEL (42849)2022-12-10 20:39:30* Test Item Value Reference Range Interpretation Comme nts NA (test code = 4173378222) 126 mmol/L 135-145 L K (test code = 7143969920) 4.4 mmol/L 3.5-5.0 CL (test code = 2520833686) 92 mmol/L 98-108 L CO2 TOTAL (test code = 8162368048) 22 mmol/L 23-31 L AGAP (test code = 3217667745) 12 2-16 BUN (test code = 0142837537) 12 mg/dL 7-23 GLUCOSE (test code = 0551280184) 716 mg/dL 70-110 HH CREATININE (test code = 6253340387) 0.92 mg/dL 0.50-1.04 TOTAL BILI (test code = 5385569113) 0.5 mg/dL 0.1-1.1 CALCIUM (test code = 7083212472) 9.2 mg/dL 8.6-10.6 T PROTEIN (test code = 3468765458) 6.2 g/dL 6.3-8.2 L ALBUMIN (test code = 8731490690) 3.5 g/dL 3.5-5.0 ALK PHOS (test code = 4968341272) 126 U/L 34-122 H ALTv (test code = 1742-6) 32 U/L 5-35 AST(SGOT) (test code = 5093639669) 26 U/L 13-40 eGFR (test code = 1344944323) 64.9 mL/min/1.73m2 LIEN (test code = LIEN) [...] imaging tests). Lab Interpretation (test code = 09849-9) Abnormal [facility] CenterACTIV[facility]IAL THRMPLAS [id number] 20:34:12* Test Item Value Reference Range Interpretation Comme nts APTT Patient (test code = 3173-2) 25 See_Comment [Automated message] The system which generated this result transmitted reference range: 23 - 38 Seconds. The reference range was not used to interpret this result as normal/abnormal. LIEN (test code = LIEN) The [facility] patient population mean normal value for aPTT is 30 seconds. Lab Interpretation (test code = 61140-4) Normal [facility] CenterProthrombin Time / [id number] 20:32:10* Test Item Value Reference Range Interpretation Comme nts PROTIME PATIENT (test code = 5964-2) 12.4 See_Comment [Automated [employer] The system which generated this result transmitted reference range: 12.0 - 14.7 Seconds. The reference range was not used to interpret this result as normal/abnormal. INR (test code = 6301-6) 1.0 Normal INR <1.1; Warfarin Therapeutic range 2.0 to 3.0 or 2.5 to 3.5, depending upon the indications. Lab Interpretation (test code = 97272-3) Normal [facility] CenterETHANOL2023-05-31 20:25:40 ALCOHOL<10mg/dL12/10/2022 3:25 PM [facility] Agepehwr37-284 Toxic>100 Depression of [employer] EXPERT>400 Fatalities ReportedUnDriscoll Children's HospitalCBC WITH [id number] 20:14:44* Test Item Value Reference Range Interpretation Comme nts WBC (test code = 6690-2) 14.72 See_Comment H [Automated [employer] The system which generated this result transmitted [...] 34.6 g/dL 31.6-35.1 RDW-SD (test code = 83078-6) 36.6 fL 39.0-49.9 L RDW-CV (test code = 788-0) 12.9 % 12.0-15.5 PLT (test code = 777-3) 485 See_Comment H [Automated messa ge] The system which generated this result transmitted reference range: 166 - 358 10*3/?L. The reference range was not used to interpret this result as normal/abnormal. MPV (test code = 67111-4) 9.0 fL 9.5-12.9 L NRBC/100 WBC (test code = 2364789366) 0.0 See_Comment [Automated [employer]] The system which generated this result transmitted reference range: 0.0 - 10.0 /100 WBCs. The reference range was not used to interpret this result as normal/abnormal. NRBC x10^3 (test code = 3924233603) See_Comment [Automated messa ge] The system which generated this result transmitted reference range: 10*3/?L. The reference range was not used to interpret this result as normal/abnormal. GRAN MAT (NEUT) % (test code = 770-8) 66.5 % IMM GRAN % (test code = 4105140949) 1.80 % LYMPH % (test code = 736-9) 24.6 % MONO % (test code = 5905-5) 4.6 % EOS % (test code = 713-8) 1.5 % BASO % (test code = 706-2) 1.0 % GRAN MAT x10^3(ANC) (test code = 8261341293) 9.80 10*3/uL 1.88-7.09 H IMM GRAN x10^3 (test code = 9822713292) 0.27 10*3/uL 0.00-0.06 H LYMPH x10^3 (test code = 731-0) 3.62 10*3/uL 1.32-3.29 H MONO x10^3 (test code = 742-7) 0.67 10*3/uL 0.33-0.92 EOS x10^3 (test code = 711-2) 0.22 10*3/uL 0.03-0.39 BASO x10^3 (test code = 704-7) 0.14 10*3/uL 0.01-0.07 H Lab Interpretation (test code = 22043-2) Abnormal [facility] CenterGLYCOSYLATED HEMOGLOBIN (A1C)2022-11-24 18:29:07* Test Item Value Reference Range Interpretation Comme nts HGB A1C (test code = 4548-4) 4.0-5.7 H LIEN (test code = LIEN) Reference RangesNormal: <5.7%Prediabetes: 5.7 - 6.4%Diabetes: > 6.5% Lab Interpretation (test code = 22960-9) Abnormal [facility] CenterINTACT PTH CALCIUM [id number] 18:45:16* Test Item Value Reference Range Interpretation Comme nts PTH-INTACT (test code = 8879536949) 70.0 pg/mL PTH-CA Interpretation (test code = 6279676438) PTH IS Appropria te for Calcium CALCIUM (test code = 1935781683) 9.5 mg/dL 8.6-10.6 [facility] CenterGLYCOSYLATED HEMOGLOBIN (A1C)2022-04-17 16:07:25* Test Item Value Reference Range Interpretation Comme nts HGB A1C (test code = 4548-4) 6.4 % 4-5.7 H LIEN (test code = LIEN) Reference RangesNormal: <5.7%Prediabetes: 5.7 - 6.4%Diabetes: > 6.5% Lab Interpretation (test code = 87393-3) Abnormal [facility] CenterGLYCOSYLATED HEMOGLOBIN (A1C)2022-04-17 16:07:25* Test Item Value Reference Range Interpretation Comme nts HGB A1C (test code = 4548-4) 6.4 % 4-5.7 H LIEN (test code = LIEN) Reference RangesNormal: <5.7%Prediabetes: 5.7 - 6.4%Diabetes: > 6.5% Lab Interpretation (test code = 34546-1) [facility] (NA, K, CL, CO2, GLUCOSE, BUN, CREATININE, CA)2022-04-17 16:07:09* Test Item Value Reference Range Interpretation Comme nts NA (test code = 9960078633) 141 mmol/L 135-145 K (test code = 9689769941) 6.5 mmol/L 3.5-5 HH CL (test code = 9347497991) 103 mmol/L 98-108 CO2 TOTAL (test code = 8657479476) 25 mmol/L 23-31 AGAP (test code = 5467363720) 2-16 BUN (test code = 6073276062) 47 mg/dL 7-23 H GLUCOSE (test code = 1797677715) 124 mg/dL 70-110 H CREATININE (test code = 7442747533) 2.07 mg/dL 0.5-1.04 H CALCIUM (test code = 1508021775) 9.5 mg/dL 8.6-10.6 eGFR (test code = 3358625201) mL/min/1.73m2 LIEN (test code = LIEN) Association [...] imaging tests). Lab Interpretation (test code = 97286-7) Abnormal [facility] METABOLIC PANEL (NA, K, CL, CO2, GLUCOSE, BUN, CREATININE, CA)2022-04-17 16:07:09* Test Item Value Reference Range Interpretation Comme nts NA (test code = 2369797699) 141 mmol/L 135-145 K (test code = 5195489665) 6.5 mmol/L 3.5-5 HH CL (test code = 7541790406) 103 mmol/L 98-108 CO2 TOTAL (test code = 3461018547) 25 mmol/L 23-31 AGAP (test code = 5586484043) 2-16 BUN (test code = 6056941302) 47 mg/dL 7-23 H GLUCOSE (test code = 8766331444) 124 mg/dL 70-110 H CREATININE (test code = 1817416304) 2.07 mg/dL 0.5-1.04 H CALCIUM (test code = 1427436265) 9.5 mg/dL 8.6-10.6 eGFR (test code = 2194306296) mL/min/1.73m2 LIEN (test code = LIEN) Association [...] imaging tests). Lab Interpretation (test code = 88554-8) [facility]* Test Item Value Reference Range Interpretation Comme nts MAGNESIUM (test code = 0269464159) 1.5 mg/dL 1.7-2.4 L Lab Interpretation (test cod e = 70560-2) Abnormal [facility] CenterMAGNESIUM2022-10-06 16:02:04* Test Item Value Reference Range Interpretation Comme nts MAGNESIUM (test code = 8108245980) 1.5 mg/dL 1.7-2.4 L Lab Interpretation (test cod e = 82060-5) [facility]* Test Item Value Reference Range Interpretation Comme nts PHOSPHORUS (test code = 5420338051) 4.5 mg/dL 2.5-5 Lab Interpretation (test cod e = 42484-5) [facility]:47* Test Item Value Reference Range Interpretation Comme nts PHOSPHORUS (test code = 5125401110) 4.5 mg/dL 2.5-5 Lab Interpretation (test cod e = 86304-8) Normal [facility] WITHOUT [id number] 15:05:42* Test Item Value Reference Range Interpretation [...] result as normal/abnormal. MPV (test code = 46324-8) 8.5 fL 9.5-12.9 L RDW-CV (test code = 788-0) 17.9 % 12-15.5 H RDW-SD (test code = 45245-7) 59.2 fL 39-49.9 H NRBC x10^3 (test code = 4257762115) See_Comment [Automated messa ge] The system which generated this result transmitted reference range: 10*3/?L. The reference range was not used to interpret this result as normal/abnormal. NRBC/100 WBC (test code = 3502338337) See_Comment [Automated messa ge] The system which generated this result transmitted reference range: 0.0 - 10.0 /100 WBCs. The reference range was not used to interpret this result as normal/abnormal. IPF % (test code = 1382945977) Lab Interpretation (test code = 81294-4) Abnormal [facility] Consult Notes Date/Time Note Provider Source 2023-03-19 [...] vascular disease will follow. Foreign Wilkinson DPM RS/NATALY J#: [id number] [facility] - Health History and Physical Notes Date/Time Note Provider Source 2023-03-18 21:30:58 Formatting of this n ote is different from the original. MEDICINE MEGADC ADMIT H&P Date of Service: 03/18/2023 CHIEF [...] mouth in the morning. 90 tablet 1 propjapckg-cmuqjbqdwmlmo-gcy f 50-325-40 mg tablet TAKE 1 CAPSULE BY MOUTH EVERY 8 HOURS NEEDED FOR MIGRAINE 90 tablet 2 omeprazole 40 mg capsule Take 1 capsule by mouth in the morning. 90 capsule 1 Miscellaneous Medical Supply [facility] Standard rollator R55/W19.XXXS/M79.604/R06.02/ I50.32/I51.7/E11.3511: Use daily for ambulation/fall precaution 1 Each 0 Walker (ULTRA-LIGHT ROLLATOR) [facility] R55/W19.XXXS/M79.604/R06.02/ I50.32/I51.7/E11.3511: Use daily for ambulation/fall precaution (brand pending insurance approval) 1 Each 0 Miscellaneous Medical Supply Kit I10 - Dispense blood [...] pertinent results as below: ORDERING PHYSICIAN: Sarah GOODMAN HISTORY: 47 years old, Female, r/o osteomyelitis [...] Prophylaxis: DVT- enoxaparin Code Status: addressed: FC T [employer] EM[employer]ENCY PHYSICIAN STAFF [facility] Notes Date/Time Note Provider Source 2024-05-23 13:56:33 Images from the original note were not included. Routed to provider for review. Unable to refill per ambulatory refill guidelines. Notes: Name from pharmacy: SERTRALINE HCL 50 MG TABLET Will file in chart as: SERTRALINE 50 mg tablet Sig: TAKE 1 TABLET BY MOUTH EVERY DAY IN THE MORNING Disp: 90 tablet Refills: 0 (Pharmacy requested: Not specified) Start: 05/22/2024 Class: eRX For: Depression with anxiety Last ordered: 3 months ago (01/29/2024) by Kwadwo Patel MD Last refill: 02/25/2024 Rx #: [id number] Psychiatry: Antidepressants Kllkdy5105/22/2024 07:21 AM Protocol Details Manual Review: Verify no changes in dose in the last 3 months Valid encounter within last 12 months To be filled at: [facility]/pharmacy #[id number] - [place], [place] - [address] [place] [address] [facility] Last Refilled: 02/25/2024 Recent Visits Date Type Provider Dept 10/23/23 Office Visit Corin Chan FNP [facility] 03/27/23 Office Visit Kwadwo Patel MD [facility] 12/19/22 Office Visit Kwadwo Patel MD [facility] Showing recent visits within past 540 days with a meds authorizing provider and meeting all other requirements Future Appointments No visits were found meeting these conditions. Showing future appointments within next 150 days with a meds authorizing provider and meeting all other requirements RANCE REPRESENTATIVE Corin Osorio MA [facility] 2024-03-01 10:33:04 Attempted to call patient to schedule unable to reach. zr T Markus Dorsey [facility] 2024-03-01 08:53:45 GALEN 10/23/2023. Please schedule for appointment for control substance refill. Thank you. [facility] 2024-02-25 10:25:53 Call placed to daughter to inform medications: Sertraline, Amitriptyline, Lisinopril and Atorvastatin were sent on 10/23/2023 with 6 month supply. Only medication that requires refill at this time is ukvftkvbls-guuhqralcnfiy-ivr f 50-325-40 mg tablet , last filled on 10/23/2023. Per ambulatory protocol this medication will be routed to provider for approval. Pts daughter reports will call pharmacy to inquire if refill are available. Disp Refills Start End MINDY lkxdifmvem-bbyvzkmayhddc-dvo f 50-325-40 mg tablet 90 tablet 2 10/23/2023 -- -- Sig: TAKE 1 CAPSULE BY MOUTH EVERY 8 HOURS NEEDED FOR MIGRAINE Sent to pharmacy as: tndknjfxha-hjhvzqbpbapev-buf feine 50 mg-325 mg-40 mg tablet (ESGIC) Class: eRX Order: [id number] Date/Time Signed: 10/23/2023 14:38 E-Prescribing Status: Receipt confirmed by pharmacy (10/23/2023 2:38 PM CDT) Recent Visits Date Type Provider Dept 10/23/23 Office Visit Corin Chan FNP [facility] 03/27/23 Office Visit Kwadwo Patel MD [facility] 12/19/22 Office Visit Kwadwo Patel MD [facility] 09/18/22 Office Visit Kwadwo Patel MD [facility] Showing recent visits within past 540 days with a meds authorizing provider and meeting all other requirements Future Appointments No visits were found meeting these conditions. Showing future appointments within next 150 days with a meds authorizing provider and meeting all other requirements Yoly Jorge RN [facility] 2024-02-25 10:02:47 Zuly Nieto is a 48 year old female Kiarra (dtr) is requesting status of refill for rx SERTRALINE 50 mg tablet amitriptyline 100 mg tablet LISINOPRIL 10 mg tablet atorvastatin 80 mg tablet , mxxxdioqgw-bupbcwitpxxci-fuf f 50-325-40 mg tablet Called into the pharmacy,pt completely out of medication Thank you Mandie Mitchell [facility] 2024-02-22 15:14:58 Attempted to call patient, no answer, unable to LVM straight to . Patient has requested refills to [facility]. Beatris Lamb MA [facility] 2024-02-22 14:52:52 Zuly Nieto is a 48 year old female and daughter Kiarra is calling to request a medication refill. GALEN: 10/23/23 SERTRALINE 50 mg tablet SITagliptin phosphate (JANUVIA) 100 mg tablet [facility] [address] [facility] [address] [facility] 2024-02-17 09:35:42 Images from the original note were not included. Rx sent on 12/23/2023 was for a 90 day supply, too early for refill. Refill request denied. Endocrinology: Diabetes - Insulins Zpvqmx0002/16/2024 06:28 PM Protocol Details Manual review: Staff [...] 70-30FLEXPEN U-100) Class: eRX Route: Subcutaneous Order: [id number] Date/Time Signed: 12/23/2023 12:36 E-Prescribing Status: Receipt confirmed by pharmacy (12/23/2023 12:36 PM CDT) Yoly Jorge RN [facility] 2024-02-10 15:10:37 Form re-faxed. [phone] Yoly Jorge RN [facility] 2024-02-10 13:30:30 [facility] medical calling to have forms clinicals re faxed with signature.[phone] Efren Swartz [facility] 2024-02-04 15:53:56 Form signed, faxed and confirmation received. Beatris Lamb MA [facility] 2024-02-04 09:53:40 Form placed in providers folder for signature, Last OV notes have been attached. Yoly Jorge RN [facility] 2024-02-04 07:48:11 Images from the original note were not included. Carol Avila [facility] 2024-01-28 08:37:59 Please review and fill [...] Dept 10/23/23 Office Visit Corin Chan FNP [facility] 03/27/23 Office Visit Kwadwo Patel MD [facility] Showing recent visits within past 365 days and meeting all other requirements Future Appointments No visits were found meeting these conditions. Showing future appointments within next 365 days and meeting all other requirements [facility]/pharmacy #[id number] - [place], [place] - [address] [place] [address] [facility] [address] [place], [place] - [address] [facility] [address] [place], [place] - [address] [facility] [address] Lia Dorado 01/28/2024 8:38 AM Lia Dorado [facility] 2024-01-08 09:53:56 Routed to provider for [...] ordered: 1 year ago (12/24/2022) by Primitivo Reynolds, DO Last refill: 01/24/2024 Rx #: [id number] To be filled at: [place], [place] - [address] Last Refilled: 01/24/24 Recent Visits Date Type Provider Dept 10/23/23 Office Visit Corin Chan FNP [facility] 03/27/23 Office Visit Kwadwo Patel MD [facility] Medicine 12/19/22 Office Visit Kwadwo Patel MD [facility] 09/18/22 Office Visit Kwadwo Patel MD [facility] Medicine Showing recent visits within past 540 days with a meds authorizing provider and meeting all other requirements Future Appointments No visits were found meeting these conditions. Showing future appointments within next 150 days with a meds authorizing provider and meeting all other requirements Corin Osorio MA [facility] 2023-12-24 14:12:16 Notes: Insulin Thedford, Disposable, (BD GLADIS 2ND GEN PEN NEEDLE) 32 gauge x 5/32" Ndle Please Send TRISTAN patient is completely out [phone] (home) Last Refilled: 06/16/2023, Refill sent to pharmacy. Recent Visits Date Type Provider Dept 10/23/23 Office Visit Corin Chan FNP [facility] 03/27/23 Office Visit Kwadwo Patel MD [facility] 12/19/22 Office Visit Kwadwo Patel MD [facility] 09/18/22 Office Visit Kwadwo Patel MD [facility] Showing recent visits within past 540 days with a meds authorizing provider and meeting all other requirements Future Appointments No visits were found meeting these conditions. Showing future appointments within next 150 days with a meds authorizing provider and meeting all other requirements Disp Refills Start End MINDY Insulin Thedford, Disposable, (BD GLADIS 2ND GEN PEN NEEDLE) 32 gauge x 5/32" Ndle 200 Each 0 06/16/2023 -- No Sig: Use as directed two times daily with meals. Sent to pharmacy as: pen needle, diabetic 32 gauge x 5/32" (BD Gladis 2nd Gen Pen Needle) Class: eRX Order: [id number] Date/Time Signed: 06/16/2023 18:24 E-Prescribing Status: Receipt confirmed by pharmacy (06/16/2023 6:24 PM INSURANCE REPRESENTATIVE) Yoly Jorge RN [facility] 2023-12-24 12:18:26 Copied from [facility] #[id number]. Topic: Clinical - Medical Advice >> Dec 24, 2023 12:16 PM Patient Sales Force Developer wrote: Zuly Nieto is a 48 year old female is calling in to have refill for Insulin Thedford, Disposable, (BD GLADIS 2ND GEN PEN NEEDLE) 32 gauge x 5/32" Ndle Please Send TRISTAN patient is completely out [phone] (home) [id number] [place] [id number] [place] [address] Yuliet Mendosa [facility] 2023-12-24 10:39:44 Refill Request: Requested Prescriptions [...] to PCP office to resume refills. [id number] [place] [address] Geneva Quinteros RN [facility] 2023-12-22 09:00:51 Images from the original [...] by ROBYN Glover Endocrinology: Diabetes - Insulins Eixmps8012/21/2023 05:46 PM Protocol Details Manual review: Staff refilling for [facility], Cr lab not required to refill Cr in normal range and within 360 days Valid encounter within last 12 months HBA1C within 180 days To be filled at: [facility]/pharmacy #[id number] Beatris Lamb MA [facility] 2023-12-21 17:42:30 Zuly Nieto is a 48 year old female Pt is calling to request to Rx the pins only for Insulin Asp Prt-Insulin Aspart 100 unit/mL (70-30) injection .Please call it in @ [facility]/pharmacy #[address] [place] [address] [facility] 2023-11-20 14:32:54 Patient has been informed of referral has been made. Beatris Lamb MA [facility] 2023-11-20 14:29:09 I'm not sure she will need replacement, but maybe removal I can place referral [facility] 2023-11-20 13:23:05 Copied from [facility] #[id number]. Topic: Clinical - Medical Advice >> November 20, 2023 1:21 PM Patient Sales Force Developer wrote: Zuly Nieto is a 48 year old female Patient is calling and requesting a referral to OBGYN because she needs to have her IUD replaced. Please advise. Susanna Amaya [facility] 2023-10-23 16:08:49 Images from the original [...] BHAVIN Barron Last refill: 10/23/2023 Rx #: [id number] Pharmacy comment: Alternative Requested:MAX DOSE 1 TABLET DAILY. Cardiovascular: BASIL Inhibitors Hhefbi3810/23/2023 03:01 PM Protocol Details Valid encounter within last 12 months K in normal range and within 360 days Cr in normal range and within 360 days This request has changes from the previous prescription. [facility] be [facility] at: [id number] [place], [place] - [address] Echo Tucker MA [facility] 2023-10-23 15:00:00 Images from the original note were not included. Venipuncture collection performed by clean technique on the left anticubitus. Total of 1 attempts were made. Slight pressure and a bandage/dressing were applied to the site(s). The patient experienced no complications. The following specimens were processed according to instructions and sent to [facility] laboratories per lab order on 10/23/2023: LT BLUE SST 1 RED LAV 2 PPT DK GREEN (LiHep) DK GREEN (SodH) MINA DK BLUE (K2) DK BLUE (S) ACD Blood Culture NIPT/NTD Pt unable to void, sent bt with specimen cup and pt will try to collect at home. [facility] 2023-10-02 11:19:49 Spoke to [facility], requesting only demographic form and last OV as they already have forms signed by . Forms refaxed. Yoly Jorge RN [facility] 2023-10-02 11:07:32 Images from the original note were not included. Pt last office visit 03/25/23. Tiffani Bautista [facility] 2023-09-29 08:59:53 From signed and faxed, confirmation received. Echo Tucker MA 09/29/2023 8:59 AM Echo Tucker MA [facility] 2023-09-29 08:58:27 From signed and faxed, confirmation received. Echo Tucker MA 09/29/2023 8:59 AM Echo Tucker MA [facility] 2023-09-28 16:49:58 Zuly Nieto is a 47 year old female Esme w [facility] called stating they are needing for pcp to fax a new order to [facility] for pt's prostatic leg. [facility] fx #: [phone] Please advise Thank you Delfina Carbajal [facility] 2023-09-28 16:22:03 Images from the original note were not included. Forms placed in nurse folder. Tiffani Bautista [facility] 2023-08-21 10:51:55 Last OV: 03/27/2023 with Kwadwo Patel Last Refills prescribed by Kwadwo Patel Last Labs Pertaining to Med: CREATININE Date Value 03/23/2023 0.85 mg/dL 04/03/2006 0.55 MG/DL (L) HGB A1C (%) Date Value 03/18/2023 6.4 (H) Future Appt: Future Appointments Provider Department Dept Phone 09/04/2023 8:40 AM Kwadwo Patel MD [facility], [place] [phone] Refill request for metformin and omeprazole refilled per ambulatory refill guidelines. Patient will need appointment with labs in one month for additional refills of metformin-patient already has appointment for visit. EN Myrick RN [facility] 2023-08-19 09:08:48 Spoke with [facility] and provided with patient phone number and insurance information. EN Lamb MA [facility] 2023-08-19 08:58:33 Images from the original note were not included. EN Avila [facility] 2023-08-18 16:10:01 Orders were faxed to [facility] to [phone] EN Lamb MA [facility] 2023-08-18 15:52:29 DME Request Below-knee amputation of right lower extremity - S/P BKA (below knee amputation), right - Leg Brace Misc; Use as directed Dispense: 1 Each; Refill: 0 - LOWR EXTREMITY PROSTHES NOS; Future - Order to be faxed to: [facility], for adjustment for prosthetic [ ] Kwadwo Patel MD, MPH Acid Crane Operator, Department of Family Medicine [facility] 08/18/2023 3:53 PM Future Appointments In 2 weeks Kwadwo Patel MD [facility] 2023-08-18 14:43:30 Routing to provider. [facility] 2023-08-18 14:34:19 Lesley with [facility] is calling in requesting an order faxed over to [facility] [phone] for adjustment for prosthetic leg. [facility] EN Martinez [facility] 2023-08-17 12:05:19 Routing to provider. RANCE REPRESENTATIVE Beatris Lamb MA [facility] 2023-08-17 11:57:22 1145 [facility] rx from 09/18/2022 [...] up Routing message to clinic for follow-up CHRISTINE Cotton, RN [facility] RANCE REPRESENTATIVE Ema Biggs RN [facility] 2023-08-17 11:41:00 Regarding: Migraine x 4 days ----- Message from Richard Lester sent at 08/17/2023 11:31 AM INSURANCE REPRESENTATIVE ----- Zuly Nieto is a 47 year old female Specific Symptoms: Migraine Specific Duration: 4 days, declined apt. Advised our nurses cannot prescribe medications. EN Biggs RN [facility] 2023-08-17 11:41:00 1145 [facility] to [facility] staff[facility] rx from 09/18/2022 Spoke to iKarra( daughter) asked if she was with Zuly, [...] Protocols used: No Contact or Duplicate Contact [id number] RANCE REPRESENTATIVE [facility] 2023-08-13 20:01:10 DME order Below-knee amputation of right lower extremity - Chronic and stable - Complicated by Phantom limb pain, Recurrent falls while walking - Patient is currently wheelchair dependant - Fall precautions advised. - Patient has prosthetic in place, pending fitting for new prosthetic - PROSTHETIC TYPE SOCKET MOLDE; Future [facility] 2023-08-13 14:10:[address] provider to place orders. EN Lamb MA [facility] 2023-08-13 13:02:59 Zuly Nieto is a 47 year old female Daughter of patient called stating that [facility] told her that she needs an order to be placed for her mom to get fitted for a prosthetic for her leg and needs to be placed by her pcp Please advise [facility] Rosalee Stern [facility] 2023-07-17 10:49:10 Refill Request Type 2 [...] < 110/60 Dispense: 145 tablet; Refill: 1 [facility] 2023-07-15 10:56:18 Routing to provider. EN Lamb MA [facility] 2023-07-14 09:23:57 [facility] calling because the insurance didn't want to cover the lisinopriL for more than one tablet a day. They would like to know if they are taking another blood pressure medication instead RANCE REPRESENTATIVE Efren Swartz [facility] 2023-03-27 16:24:30 Formatting of this n ote is different from the original. TRANSITIONAL CARE MANAGEMENT ASSESSMENT 03/27/2023 Zuly Nieto [id number] Zuly Nieto is a 47 year old /White female was admitted on 03/18/23 to [facility], [facility]. She was discharged on 03/26/23 with discharge disposition of HR- Routine Discharge. Admitting Physician: Rosi Jones Discharge Diagnosis: Sepsis Linked Episodes Type: Episode: Status: Noted: Resolved: Last update: Updated by: TRANSITION OF CARE TCM Active 03/26/2023 03/27/2023 12:45 PM Dina Medley RN Comments:03/26/2023 TCM Aoa-lsyc-zn-face outreach documentation: Care Transition CM attempted to reach patient via telephone x2. No response and voicemail not set up. Unable to leave message. Discharge Assessment Chart Assessed: 03/27/23 TCM Outreach Completed: 03/27/23 Future Appointments: Future Appointments Provider Department Dept Phone 07/01/2023 11:20 AM Kwadwo Patel MD [facility] [phone] Dina Medley RN [facility] 2023-03-27 12:45:33 Formatting of this n ote might be different from the original. Care Transition CM attempted to reach patient via telephone. No response and voicemail not set up. Unable to leave message. Dina Medley RN, BSN Medical Biller Coder-KEESHA TEAM [phone] [facility] 2023-03-26 15:46:09 Formatting of this n ote might be different from the original. Patient is AOx4. Respirations are even and unlabored. Denies pain/discomfort. Patient has been educated on discharge instructions, medications, diagnosis, and follow up appointments. IV discontinued. Patient and spouse deny discharge concerns at this time. Patient is Discharging home via taxi, spouse is aware of ETA home. [facility] 2023-03-26 15:01:44 Formatting of this n [...] Wilton Ni RN Outcome: Progressing as expected [facility] 2023-03-26 12:44:53 Formatting of this n ote [...] of breathing Outcome: Progressing as expected T [facility] 2023-03-26 01:27:52 Formatting of this n ote [...] Progressing as expected T Kim Sheikh RN [facility] 2023-03-25 12:36:50 Formatting of this n [...] signs and symptoms Outcome: Progressing as expected [facility] 2023-03-25 01:57:39 Formatting of this n [...] signs and symptoms Outcome: Progressing as expected [facility] 2023-03-24 18:39:39 Formatting of this n [...] Goal: Effective communication Outcome: Progressing as expected [facility] Angela Parks RN [facility] 2023-03-23 21:40:33 Formatting of this n [...] Outcome: Progressing as expected Ariadna Prescott RN [facility] 2023-03-23 19:35:32 Formatting of this n [...] Outcome: Progressing as expected Melissa Breaux RN [facility] 2023-03-23 09:09:20 Formatting of this n ote might be different from the original. Form signed by Dr Patel and faxed back to [facility], successful fax confirmation received. Office visit notes attached to fax. Carmen Renteria RN [facility] 2023-03-22 22:48:36 Formatting of this n [...] signs and symptoms Outcome: Progressing as expected [facility] [employer] 2023-03-22 17:49:37 Formatting of this n ote [...] Goal: Effective communication Outcome: Progressing as expected [facility] [employer] 2023-03-21 22:04:03 Formatting of this n ote [...] signs and symptoms Outcome: Progressing as expected [facility] 2023-03-21 16:51:42 Formatting of this n [...] Goal: Effective communication Outcome: Progressing as expected [facility] 2023-03-21 00:45:14 Summary: Vancomycin Monitoring Vancomycin Therapeutic Monitoring Note Pharmacy to monitor vancomycin dosing for patient Zuly Nieto, [id number]. Primary Physician: Dr. Danny BARTLETT Physician, if following: None Indication for Vancomycin [...] 1.47 - 1250 mg IV Q24H @ 1822 - 03/19/23 1.2 1250mg IV Q24H @ 7 - 03/20/23 1.03 85 1250mg IV Q24H @ 2040 12.2 mcg/mL - - - - Assessment [...] with any questions or concerns. [facility] Department of Pharmacy Blaine Romero [facility] 2023-03-20 21:17:01 Formatting of this n ote [...] Outcome: Progressing as expected Thea Pate RN [facility] 2023-03-20 14:08:33 Formatting of this n [...] VTE diagnosis (Actual) Outcome: Progressing as expected T [facility] 2023-03-20 12:21:00 Formatting of this n ote might be different from the original. BRIEF OPERATIVE NOTE Date of Surgery: 03/20/2023 Surgeon(s) and Role: * Foreign Wilkinson Jr., DPM - Primary Pre-Op Diagnosis: ABSCESS LEFT FOOT Post-Op Diagnosis Codes: * Abscess of foot [L02.619] Procedures: Procedure(s) (LRB): INCISION AND DRAINAGE LOWER EXTREMITY (Left) CPT: UTMBCODINGSANGEETHA, Any Complications Encounters: none Estimated Blood Loss: <10cc Specimens Removed: * No specimens in log * * No implants in log * Patient's Condition: stable Findings: As above Any other important information: none Please see dictated operative report for additional detail. [facility] 2023-03-20 06:53:25 Formatting of this n ote [...] VTE diagnosis (Actual) Outcome: Progressing as expected [facility] 2023-03-20 00:09:00 Formatting of this n ote might be different from the original. FACULTY SURGEON: Foreign Wilkinson DPM RESIDENT SURGEON: QUARTZ MOUNTER OR TEACHING RESIDENT: PREOPERATIVE DIAGNOSIS: Left foot abscess. POSTOPERATIVE DIAGNOSIS: Left foot abscess. OPERATION: Left foot incision and drainage. PROCEDURE: Pathology: None. Anesthesia: TIVA with 20 mL of 1:1 of 0.5% Marcaine, 1% lidocaine plain in an ankle block. Hemostasis: None. Materials: Half-inch iodoform gauze. Injectables: None. Complication: None. Patient was brought to the [facility] operating room and placed on the OR [...] one day previous. At this time, a [place] elevator was inserted and the abscess was [...] Less than 10 cc. Foreign Wilkinson DPM RS/MODL J#: [id number] [facility] 2023-03-19 19:46:46 Formatting of this n ote [...] VTE diagnosis (Actual) Outcome: Progressing as expected [facility] 2023-03-19 00:09:31 Formatting of this n ote [...] VTE diagnosis (Actual) Outcome: Progressing as expected [facility] 2023-03-18 20:40:39 Formatting of this n ote might be different from the original. Nurse Report Report given to MARIA ALEJANDRA Izquierdo. Chief complaint, assessment findings, infusion verify and orders reviewed. Plan of care discussed with both nurses. Janey Alberto RN Janey Alberto RN [facility] 2023-03-18 20:28:57 Formatting of this n ote is different from the original. Vancomycin Therapeutic Monitoring Note Pharmacy to monitor vancomycin dosing for patient Zuly Nieto, [id number]. Primary Physician: Dr. Jones ID Physician, if [...] with any questions or concerns. Kyle Tatum [facility], PharmD [facility] - Department of Pharmacy 03/18/2023 20:22 Kyle Tatum [facility] 2023-03-18 17:19:09 Formatting of this n [...] Appears in no distress. Jesi London RN [facility] 2023-03-18 16:49:00 Formatting of this n ote is different from the original. Images from the original note were not included. 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 METABOLIC PANEL (76271) - Abnormal NA 136 135 - 145 [...] LEFT CBC WITH DIFF COMP. METABOLIC PANEL (50189) BLOOD CULTURE SCREEN BLOOD CULTURE SCREEN Lactic [...] Event User Comments 03/18/231721 Medical Screening Begins SHAZIA RUDD -- 03/18/231721 First Provider Evaluation SHAZIA RUDD -- No notes of EC Admission [...] encounter and patient evaluation by JAGDISH Goodman. JAGDISH-PHYSICIAN QUARTZ MOUNTER MIDLEVEL PROVIDER [facility] 2023-03-18 15:39:33 Formatting of this n ote might be different from the original. Received forms from [facility], attached pass OV to form. Placed in provider folder to be sign and view. Beatris Lamb MA [facility] 2023-03-03 16:34:16 Formatting of this n ote might be different from the original. PA sent through covermymeds, waiting for determination. Lisinopril 10 mg Prema Ramos RN [facility] 2023-02-20 12:54:01 Formatting of this n ote might be different from the original. Rx sent, let patient know, and to follow-up as scheduled. [facility] 2023-02-20 09:07:02 Formatting of this n ote might be different from the original. You are scheduled to have: Transesophageal Echo (MARCELL-Transthoracic Echocardiogram) Date & Time of Procedure: 02/24/2023 --arrival time: 09:00 am Address: [address] [place] [address] You may park in the public parking garage or at the [address] [place] [address]. Where to go: On the day of your procedure, report to the admission desk located on the 1st floor. After you check in, you will be escorted to the Environmental Research Project Manager Holding/Recovery Area to get ready for your [...] allow visitors under age 14 in the Environmental Research Project Manager holding/recovery room, so please make arrangement for [...] physicians office or if you are an [facility] patient call the If you take anti rejections medicine, on the day of your bloodwork, do not take anti-rejection medicine until after the blood has been drawn. If you have further questions and/or need to cancel you appointment, please call your doctor's office. N Del Castillo RN [facility] 2023-02-09 10:24:47 Formatting of this n ote might be different from the original. You are scheduled to have: Transesophageal Echo (MARCELL-Transthoracic Echocardiogram) Date & Time of Procedure: 02/10/2023 --arrival time: 06:30 am Address: [address] [place] [address] You may park in the public parking garage or at the [address] [place] [address]. Where to go: On the day of your procedure, report to the admission desk located on the 1st floor. After you check in, you will be escorted to the Environmental Research Project Manager Holding/Recovery Area to get ready for your [...] allow visitors under age 14 in the Environmental Research Project Manager holding/recovery room, so please make arrangement for [...] physicians office or if you are an [facility] patient call the If you take anti rejections medicine, on the day of your bloodwork, do not take anti-rejection medicine until after the blood has been drawn. If you have further questions and/or need to cancel you appointment, please call your doctor's office. N Del Castillo RN [facility] - [facility] 2023-01-02 14:10:16 Formatting of this n ote is different from the original. Name/ MRN / Age / Gender: Zuly Nieto, [id number] 47 year old female BMI: Estimated body mass index is 39.19 kg/m? as calculated from the following: Height as of 6/13/23: 1.448 m (4' 9"). 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 Hold on DOS. Phentermine: Alert [facility] anesthesiologist SGLT2 Inhibitors: "gliflozins" to be held [...] 0 Blood-Glucose Meter (ACCU-CHEK GUIDE GLUCOSE METER) [facility] Use as directed 1 Each 0 clopidogreL 75 mg tablet Take 1 tablet by mouth in the morning for 30 days. 30 tablet 0 Insulin Syringe-Needle U-100 0.3 mL 31 x 3/8" Syrg Use as directed to inject insulin (lantus once per day, humalog three times per day) 1 Kit 0 lancets 33 gauge [facility] Use as directed to test blood sugars [...] mouth in the morning. 90 tablet 1 ebcpgnsnbw-dkauqshhzczzk-bg ff 50-325-40 mg tablet TAKE 1 CAPSULE BY MOUTH EVERY 8 HOURS NEEDED FOR MIGRAINE 90 tablet 2 omeprazole 40 mg capsule Take 1 capsule by mouth in the morning. 90 capsule 1 Miscellaneous Medical Supply [facility] Standard rollator R55/W19.XXXS/M79.604/R06.02/ I50.32/I51.7/E11.3511: Use daily for ambulation/fall precaution 1 Each 0 Walker (ULTRA-LIGHT ROLLATOR) [facility] R55/W19.XXXS/M79.604/R06.02/ I50.32/I51.7/E11.3511: Use daily for ambulation/fall precaution (brand pending insurance approval) 1 Each 0 Miscellaneous Medical Supply Kit I10 - Dispense blood [...] Plan ASA Status: 4 Raya Marina RN [facility]
--- NOTE | 2024-05-25 16:17 | RAD REPORT ---
EXAMINATION: ONE VIEW CHEST XR CLINICAL INDICATION: PAIN TECHNIQUE: Frontal chest projection is submitted. Examination is limited by patient positioning and t echnique. COMPARISON: 04/18/2020 FINDINGS: The lungs are well inflated and clear. The heart is normal in size. No displaced fractures identified . IMPRESSION: No acute intrathoracic abnormalities.
--- NOTE | 2024-05-25 16:33 | RAD REPORT ---
EXAMINATION: CT ABDOMEN AND PELVIS WITHOUT CONTRAST CLINICAL INDICATION: ABD PAIN TECHNIQUE: CT abdomen and pelvis was performed, without IV contrast, as per department protocol. Axia l, sagittal and coronal reconstructions were obtained. One or more of the following dose reduction techniques were used: Automated exposure control, adjustment of the mA and kV according to the patien t size, and iterative reconstruction. Unless otherwise specified, incidental findings do not require dedicated imaging follow-up. COMPARISON: No prior exam. FINDINGS: The lack of intravenous contrast limits the sensitivity of this exam for evaluation of solid visceral organs, vascular structures, and retroperitoneum. LOWER CHEST: The visualized lung bases are clear. Mild thickening of the distal esophagus. LIVER:Normal in size and contour. No focal lesion. Grossly unremarkable gallbladder. SPLEEN: Normal size. No focal lesion. PANCREAS: No mass, ductal dilation, or lisa-pancreatic fluid. ADRENALS: Normal; no mass. KIDNEYS AND URETERS: The right kidney is absent. Left kidney is normal in appearance. URINARY BLADDER: Normal contour. GASTROINTESTINAL TRACT: No evidence of bowel obstruction, significant free fluid, free air or abscess . Moderate stool is present in the rectum. APPENDIX: Normal appendix. LYMPH NODES: No lymphadenopathy. MUSCULOSKELETAL: No acute or suspicious osseous abnormality. ADDITIONAL FINDINGS: IUD is in the uterus. IMPRESSION: No acute or concerning abnormalities in the abdomen or pelvis, with evaluation limited by lack of IV contrast. Absent right kidney.
[2024-05-25] MEDS ORDERED: ONDANSETRON 4 MG/2 ML VIAL ONE (16:39)
[2024-05-25] MEDS ORDERED: FAMOTIDINE 20 MG/2 ML VIAL IV ONE (16:39)
[2024-05-25] MEDS ORDERED: HYDROCODONE/APAP 10/325 TAB ONE (16:39)
[2024-05-25 16:54] LABS: Absolute Basophils 0.1 K/uL (0-0.5); Absolute Lymphocytes (CBC) 1.7 K/uL (0.7-4.9); Absolute Monocytes 0.7 K/uL (0.1-1.3); Absolute Neutrophil 13.5 K/uL (1.8-8.0); Basophils % 0.5 % (0-1.3); Eosinophils % 0.1 % (0-4.4); Hemoglobin 11.5 g/dL (12.0-15.0); Lymphocytes % 10.8 % (15.3-44.8); MCH 26.2 pg (27.0-35.0); MCHC 32.8 g/dL (32.0-36.0); MPV 7.5 fL (7.6-11.3); Monocytes % 4.4 % (3.3-12.3); Neutrophils % 84.2 % (41.7-73.7); Platelets 395 thou/uL (152-406); RBC Red Blood Cell Count 4.38 M/uL (3.86-4.86); Red Cell Distribution Width 15.2 % (12.1-15.2)
[2024-05-25 17:59] LABS: ALT/SGPT 17 U/L (13-56); Albumin/Globulin Ratio 0.8 (1.1-1.8); Alkaline Phosphatase 134 U/L (45-117); Anion Gap 10.8 mEq/L (5.0-15.0); BUN Blood Urea Nitrogen 20 mg/dL (7-18); Bicarbonate 24 mEq/L (21-32); Bilirubin Total 0.2 mg/dL (0.2-1.0); Glomerular Filtration Rate 40 ml/min (=/>90); Glucose Level 291 mg/dL (74-106); Lipase 25 U/L (13-75); Potassium 4.8 mEq/L (3.5-5.1); Sodium Level 138 mEq/L (136-145); Troponin High Sensitivity 12.9 pg/mL (<58.9)
[2024-05-25 18:01] LABS: AST/SGOT < 10 U/L (15-37)
[2024-05-25 19:41] LABS: Specific Gravity 1.015 (1.005-1.030); Sqamous Epithelial <5 /HPF (None Seen); Urine Bacteria <20 /HPF (<20); Urine Bilirubin NEGATIVE (Negative); Urine Blood Negative (Negative); Urine Clarity Turbid (Clear); Urine Color Light-Yellow (Yellow); Urine Crystals Unidentified Few /HPF (None Seen); Urine Culture Reflex Order NOT NEEDED; Urine Glucose 4+ (Over) (Negative); Urine Ketones NEGATIVE (Negative); Urine Microscopic Reflex YN ORDER UMIC; Urine Mucus Slight /HPF (None Seen); Urine Nitrite NEGATIVE (Negative); Urine Protein 3+ (Negative); Urine RBC <5 /HPF (None Seen); Urine Urobilinogen Normal (Normal); Urine WBC <5 /HPF (<5); Urine WBC Clump Rare /HPF (None Seen); Urine pH 7.5 (5.0-7.0)
--- NOTE | 2024-05-25 20:01 | EDPHYS ---
Physician Documentation [facility] Name: Barb Cortez Age: 48 yrs Sex: Female : 1975 Arrival Date: 05/25/2024 Time: 15:34 Bed 14 Private MD: ED Physician Gil Boswell HPI: 05/25 17:12 This 48 yrs old Female presents to ER via EMS with complaints of Nausea/Vomiting. kb 17:12 Patient is a 48-year-old female who presents for nausea, vomiting and upper abdominal kb pain that radiates into the chest that started 2 days ago. States symptoms got worse last night. Denies fever and diarrhea. States she has been having some difficulty urinating as well. No aggravating or alleviating factors. 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 - Infectious Disease History:: Denies. - Social history:: Smoking status: Patient reports the use of cigarette tobacco products, denies chronic smoking, but will smoke occasionally, Patient uses alcohol, occasionally. ROS: 17:15 Constitutional: As per HPI kb Exam: 17:15 Constitutional: This is a well developed, well nourished patient who is awake, alert, kb and in no acute distress. Head/Face: Normocephalic, atraumatic. ENT: Moist Mucous membranes Cardiovascular: Regular rate Respiratory: Respirations even and unlabored. No increased work of breathing. Talking in full sentences Skin: Warm, dry with normal turgor. Normal color. MS/ Extremity: Pulses equal, no cyanosis. Neurovascular intact. Full, normal range of motion. Neuro: Awake and alert, GCS 15, oriented to person, place, time, and situation. 17:15 Abdomen/GI: Inspection: abdomen appears normal, Bowel sounds: normal, Palpation: soft, in all quadrants, mild abdominal tenderness, in the epigastric area and left lower quadrant, 18:01 ECG was reviewed by the Attending Physician. kb Vital Signs: 15:39 BP 129 / 81; Pulse 107; Resp 17; Temp 98.5(O); Pulse Ox 100% on R/A; MAP 91 mmHg; tm6 Weight 68.04 kg; Height 4 ft. 9 in. ; Pain 0/10; 17:31 BP 162 / 92; Pulse 107; Pulse Ox 99% on R/A; MAP 108 mmHg; Pain 6/10; tm6 19:00 BP 150 / 86; Pulse 100; Resp 18; kj2 20:07 BP 142 / 86; Pulse 90; Resp 18; Temp 98; Pulse Ox 97% on R/A; kj2 15:39 Body Mass Index 32.46 (68.04 kg, 144.78 cm) tm6 15:39 Pain Scale: Adult tm6 17:31 Pain Scale: Adult tm6 MDM: 15:43 Medical Screening Exam initiated kb 17:15 Data reviewed: vital signs, nurses notes. kb 19:59 Differential diagnosis: Nonspecific abd pain, gastritis, viral gastroenteritis. kb Historians other than the Patient: EMS: [facility]. Counseling: I had a detailed discussion with the patient and/or guardian regarding the historical points, exam findings, and any diagnostic results supporting the discharge/admit diagnosis, lab results, radiology results, the need for outpatient follow up, a family practitioner, to return to the emergency department if symptoms worsen or persist or if there are any questions or concerns that arise at home. 05/25 15:44 Order name: CBC with Diff; Complete Time: 17:05 kb 05/25 15:44 Order name: CMP; Complete Time: 18:04 kb 05/25 15:44 Order name: Lipase; Complete Time: 18:04 kb 05/25 15:44 Order name: Urinalysis w/ reflexes; Complete Time: 19:47 kb 05/25 15:44 Order name: Troponin HS; Complete Time: 18:04 kb 05/25 15:44 Order name: CT Abd/Pelvis - Without Contrast; Complete Time: 16:34 kb 05/25 15:44 Order name: XRAY Chest (1 view); Complete Time: 16:21 kb 05/25 15:44 Order name: EKG; Complete Time: 15:44 kb 05/25 15:44 Order name: IV Saline Lock; Complete Time: 16:33 kb 05/25 15:44 Order name: Labs collected and sent; Complete Time: 16:34 kb 05/25 15:44 Order name: Cardiac monitoring; Complete Time: 17:11 kb 05/25 15:44 Order name: EKG - Nurse/Tech; Complete Time: 17:11 kb 05/25 15:44 Order name: O2 Per Protocol; Complete Time: 16:33 kb 05/25 15:44 Order name: O2 Sat Monitoring; Complete Time: 16:33 kb 05/25 17:00 Order name: Misc. Order: lab redraw green top; Complete Time: 17:31 sp 05/25 18:17 Order name: Misc. Order: please obtain and send urine sample to lab; Complete Time: kb 19:14 EC:01 Rate is 103 beats/min. Rhythm is regular. QRS [place] is Normal. [place] interval is normal at kb 154 msec. QRS interval is normal at 78 msec. QT interval is normal at 482 msec. Administered Medications: 16:48 Drug: Famotidine IVP 20 mg IVP once; dilute with 10 mL 0.9% NaCl; give over 2 minutes tm6 Route: IVP; Site: left antecubital; 16:48 Drug: Ondansetron IVP 4 mg IVP once; over 2 minutes Route: IVP; Site: left antecubital; tm6 16:48 Drug: NS 0.9% IV 1000 ml IV at 1 bolus Per protocol; to be given as a bolus over 60 tm6 minutes Route: IV; Rate: 1 bolus; Site: left antecubital; 16:48 Drug: [place] PO 10 mg-325 mg 1 tabs PO once Route: PO; tm6 19:54 Follow up: Response: No adverse reaction; Pain is decreased kj2 Disposition: 05/26 09:50 Co-signature as Attending Physician, Gil Boswell MD I reviewed the patient's care rn provided by the Advanced Practice Provider and agree with the diagnosis and treatment plan. Disposition Summary: 05/25/24 20:00 Discharge Ordered Notes: Location: Home Condition: Stable kb Diagnosis - Upper abdominal pain, unspecified kb - Nausea with vomiting, unspecified kb Followup: kb - With: Emergency Department - When: As needed - Reason: Worsening of condition Followup: kb - With: Private Physician - When: 2 - 3 days - Reason: Recheck today's complaints, Continuance of care, Re-evaluation by your physician Discharge Instructions: - Discharge Summary Sheet kb - Nausea and Vomiting, Adult, [id number] kb - Abdominal Pain, Adult, [id number] kb Forms: - Medication Reconciliation Form kb - Antibiotic Education kb - Prescription Opioid Use kb - Patient Portal Instructions kb - Leadership Thank You Letter kb Prescriptions: - Zofran 4 mg Oral tablet - take 1 tablet ORAL route every 6 hours As needed; 12 tablet; Refills: 0, kb Product Selection Permitted - dicyclomine 20 mg Oral tablet - take 1 tablet ORAL route 4 times per day As needed; 20 tablet; Refills: 0, kb Product Selection Permitted Signatures: Dispatcher [employer] EDMS Daily Kline, GINAC TIN WORKER-Loida Norton Roman, MD MD rn JanethGagandeep RN RN tm6 Kadie Mancia RN kj2
--- NOTE | 2024-05-25 20:01 | ER ---
Nurse's Notes [facility] Name: Barb Cortez Age: 48 yrs Sex: Female : 1975 Arrival Date: 05/25/2024 Time: 15:34 Bed 14 Private MD: Diagnosis: Upper abdominal pain, unspecified;Nausea with vomiting, unspecified Presentation: 05/25 15:39 Chief complaint: EMS states: nausea and vomiting since last night, chest pain with deep tm6 breathing. Trouble urinating. Emesis is cola colored. Coronavirus screen: Vaccine status: Patient reports receiving the 2nd dose of the covid vaccine. Ebola Screen: Patient negative for fever greater than or equal to 101.5 degrees Fahrenheit, and additional compatible Ebola Virus Disease symptoms Patient denies exposure to infectious person. Patient denies travel to an Ebola-affected area in the 21 days before illness onset. No symptoms or risks identified at this time. Initial Sepsis Screen: Does the patient meet any 2 criteria? HR > 90 bpm. Does the patient have a suspected source of infection? No. Patient's initial sepsis screen is negative. Risk Assessment: Do you want to hurt yourself or someone else? Patient reports no desire to harm self or others. Onset of symptoms was May 24, 2024. Care prior to arrival:. 15:39 Method Of Arrival: EMS: [facility] 6 15:39 Acuity: HARI 3 tm6 Triage Assessment: 15:41 General: Appears uncomfortable, Behavior is cooperative. Pain: Complains of pain in tm6 chest Pain currently is 10 out of 10 on a pain scale. Pain began 1 day ago. Aggravated by deep breathing. EENT: No signs and/or symptoms were reported regarding the EENT system. Neuro: Level of Consciousness is awake, alert, obeys commands, Oriented to person, place, time, situation. Cardiovascular: Reports chest pain, Patient's skin is warm and dry. Respiratory: Airway is patent Respiratory effort is even, unlabored, Respiratory pattern is regular, symmetrical. GI: Reports nausea, vomiting, since last night. : Reports difficulty voiding. Derm: No signs and/or symptoms reported regarding the dermatologic system. Musculoskeletal: No signs and/or symptoms reported regarding the musculoskeletal system. 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 - Infectious Disease History:: Denies. - Social history:: Smoking status: Patient reports the use of cigarette tobacco products, denies chronic smoking, but will smoke occasionally, Patient uses alcohol, occasionally. Screenin:45 [facility] ED Fall Risk Assessment (Adult) History of falling in the last 3 months, tm6 including since admission No falls in past 3 months (0 pts) Confusion or Disorientation No (0 pts) Intoxicated or Sedated No (0 pts) Impaired Gait Yes (1 pt) Mobility Assist Device Used Yes (1 pt) Altered Elimination No (0 pt) Score/Fall Risk Level 0 - 2 = Low Risk Oriented to surroundings, Maintained a safe environment, Educated pt \T\ family on fall prevention, incl call for assistance when getting out of bed. Abuse screen: Denies threats or abuse. Denies injuries from another. Nutritional screening: No deficits noted. Tuberculosis screening: No symptoms or risk factors identified. Assessment: 15:45 Reassessment: see triage assessment. GI: Abdomen is round non-distended, Reports tm6 nausea, vomiting, since last night. 17:32 Reassessment: Patient and/or family updated on plan of care and expected duration. Pain tm6 level reassessed. Patient is alert, oriented x 3, equal unlabored respirations, skin warm/dry/pink. 19:00 Reassessment: Patient appears in no apparent distress at this time. Patient and/or kj2 family updated on plan of care and expected duration. Pain level reassessed. Patient is alert, oriented x 3, equal unlabored respirations, skin warm/dry/pink. 20:07 Reassessment: Patient appears in no apparent distress at this time. Patient and/or kj2 family updated on plan of care and expected duration. Pain level reassessed. Patient is alert, oriented x 3, equal unlabored respirations, skin warm/dry/pink. Vital Signs: 15:39 BP 129 / 81; Pulse 107; Resp 17; Temp 98.5(O); Pulse Ox 100% on R/A; MAP 91 mmHg; tm6 Weight 68.04 kg; Height 4 ft. 9 in. ; Pain 0/10; 17:31 BP 162 / 92; Pulse 107; Pulse Ox 99% on R/A; MAP 108 mmHg; Pain 6/10; tm6 19:00 BP 150 / 86; Pulse 100; Resp 18; kj2 20:07 BP 142 / 86; Pulse 90; Resp 18; Temp 98; Pulse Ox 97% on R/A; kj2 15:39 Body Mass Index 32.46 (68.04 kg, 144.78 cm) tm6 15:39 Pain Scale: Adult tm6 17:31 Pain Scale: Adult tm6 ED Course: 15:39 Patient arrived in ED. tm6 15:41 Daily Kline FNP-C is [facility]. ec2 15:41 Triage completed. tm6 15:41 Arm band placed on left wrist. tm6 15:45 Patient has correct armband on for positive identification. Allergy band placed. Bed in tm6 low position. Call light in reach. Side rails up X2. Provided Education on: use of call erazo . Client placed on continuous cardiac and pulse oximetry monitoring. NIBP monitoring applied. Pulse ox on. NIBP on. Door closed. Noise minimized. Warm blanket given. 15:45 Maintain EMS IV. Dressing intact. Good blood return noted. Site clean \T\ dry. Gauge \T\ tm 6 site: 20g LAC. Flushed with 10 mL NS. 16:11 XRAY Chest (1 view) In Process Unspecified. EDMS 16:17 CT Abd/Pelvis - Without Contrast In Process Unspecified. EDMS 16:23 Gagandeep Fowler, RN is Primary Nurse. tm6 16:33 Troponin HS Sent. tm6 16:34 CBC with Diff Sent. tm6 16:34 CMP Sent. tm6 16:34 Lipase Sent. tm6 17:11 EKG done, by ED staff, reviewed by Daily SHIPLEY. tm6 19:14 Urinalysis w/ reflexes Sent. ty 20:01 Gil Boswell MD is Attending Physician. kb 20:08 No provider procedures requiring assistance completed. kj2 20:09 IV discontinued, intact, bleeding controlled, No redness/swelling at site. Pressure kj2 dressing applied. Administered Medications: 16:48 Drug: Famotidine IVP 20 mg IVP once; dilute with 10 mL 0.9% NaCl; give over 2 minutes tm6 Route: IVP; Site: left antecubital; 16:48 Drug: Ondansetron IVP 4 mg IVP once; over 2 minutes Route: IVP; Site: left antecubital; tm6 16:48 Drug: NS 0.9% IV 1000 ml IV at 1 bolus Per protocol; to be given as a bolus over 60 tm6 minutes Route: IV; Rate: 1 bolus; Site: left antecubital; 16:48 Drug: [place] PO 10 mg-325 mg 1 tabs PO once Route: PO; tm6 19:54 Follow up: Response: No adverse reaction; Pain is decreased kj2 Medication: 15:45 VIS not applicable for this client. tm6 Outcome: 20:00 Discharge ordered by . kb 20:09 Discharged to home via wheelchair, with family, kj2 20:09 Condition: stable 20:09 Discharge instructions given to patient, family, Instructed on discharge instructions, follow up and referral plans. Demonstrated understanding of instructions, follow-up care, 20:22 Patient left the ED. kj2 Signatures: Dispatcher [employer] Daily William, METAL CNC OPERATOR-C METAL CNC OPERATOR-Shorty Kinney MD MD ec2 Gagandeep Fowler RN RN tm6 Patel Cuellar Krystal, RN RN kj2
[2024-05-25 20:30] VITALS: BP 142/86; TEMP 98; O2SAT 97
== END 2024-05-25 20:22 | disposition home or self-care (01) ==
LOC: ER 15:34
DX: R10.13 Epigastric pain (principal); R11.2 Nausea with vomiting, unspecified; F17.210 Nicotine dependence, cigarettes, uncomplicated
CPT/HCPCS: 85025; 81001; 36415; 84484; 83690; 80053; 74176; 71045; J2405